=== PATIENT | male | born 1975 | race Hispanic/Latino ===

== ENCOUNTER 2017-06-25 01:04 | Inpatient (IN) | payer OTHER ==
--- OUTSIDE RECORDS SUMMARY | 2017-06-25 01:07 | XMS REPORT | Clinical Summary ---
:[address] [facility] Address [address] [place] [address] Phone Care Team Providers Name Role Phone Unavailable Primary Care Provider Unavailable Allergies No Known Allergies Current Medications Prescription Sig. Disp. Refills Start Date End Date Status INSULIN NPH Inject 7 Units Active HUM/REG INSULIN subcutaneously 2 HM (NOVOLIN 70/30 (two) times daily . SUBQ) amLODIPine Take 10 mg by mouth Active (NORVASC) 10 MG daily. tablet doxazosin Take 2 mg by mouth Active (CARDURA) 2 MG nightly. tablet carvedilol Take 6.25 mg by Active (COREG) 6.25 MG mouth 2 (two) times tablet daily with breakfast and dinner. pravastatin Take 40 mg by mouth Active (PRAVACHOL) 40 MG daily. tablet calcium acetate Take 667 mg by Active (PHOSLO) 667 mg mouth 3 (three) capsule times daily with meals. atorvastatin Take 40 mg by mouth 02/23/19 Discontinued (LIPITOR) 40 MG daily. 18 tablet acetaminophen-cod Take 1 tablet by 30 tablet 0 06/30/2016 07/11/19 eine (TYLENOL #4) mouth every 4 17 300-60 mg per (four) hours as tablet needed for Pain for up to 10 days. Max Daily Amount: 6 tablets sevelamer Take 800 mg by 02/23/19 Discontinued (RENVELA) 800 mg mouth 3 (three) 18 tablet times daily with meals. Active Problems Problem Noted Date ILD (interstitial lung disease) ([facility]) 02/23/2017 ESRD (end stage renal disease) on dialysis ([facility]) 06/30/2016 ESRD (end stage renal disease) (HCC) 05/08/2016 Encounters Date Type Specialty Care Team Description 05/02/2017 Telephone Transplant Rigo Callejas RN Follow-up 03/28/2017 Telephone Transplant Rigo Callejas RN Follow-up 02/23/2017 Hospital Encounter Lee Rivera, ESRD (end stage MD renal disease) (HCC) 02/23/2017 Orders Only Transplant Lee Rivera MD 02/23/2017 Procedure Pass 02/23/2017 Surgery Lee Rivera, R & L CATH / CORONARY ANGIOS / PCI 02/14/2017 Telephone Transplant Rigo Callejas RN Follow-up 02/13/2017 Telephone Transplant Diane Murillo Appointment 01/30/2017 Telephone Transplant Rigo Callejas RN Follow-up 01/30/2017 Abstract Transplant Rigo Callejas RN 01/12/2017 Orders Only Transplant Lee Rivera MD 01/12/2017 Procedure Pass 01/11/2017 Hospital Encounter Cardiology Lee Rivera, End stage renal MD disease (HCC);ASD (atrial septal defect) 01/10/2017 Outside Orders Central Scheduling Lee Rivera End stage renal MD disease (HCC) (Primary Dx);ASD (atrial septal defect) 12/05/2016 Telephone Transplant Rigo Callejas RN Follow-up 11/22/2016 Committee Review Transplant Rigo Callejas RN 11/21/2016 Lab Requisition Lab Gaetano Tejeda MD 11/17/2016 Orders Only Transplant Nikhil Pre-transplant Hepatology Gaetano Guzman MD evaluation for chronic kidney disease 11/15/2016 Documentation Transplant Rigo Callejas RN 11/13/2016 Committee Review Transplant Diane Murillo 10/31/2016 Outside Orders Lab Kevin Carbajal 10/11/2016 Evaluation Transplant Nikhil Pre-transplant Gaetano Guzman MD evaluation for Adriana Fierro MD chronic kidney disease (Primary Dx) 10/11/2016 Evaluation Transplant Gaetano Tejeda MD 10/11/2016 Hospital Encounter Radiology Nikhil, ESRD (end stage Gaetano Guzman MD renal disease) (HCC);Pre-transplant evaluation for chronic kidney disease 10/11/2016 Hospital Encounter Cardiology Nikhil, Pre-transplant Gaetano Guzman MD evaluation for chronic kidney disease 10/11/2016 Hospital Encounter Radiology Nikhil, ESRD (end stage Gaetano Guzman MD renal disease) ([facility]) 10/11/2016 Hospital Encounter Cardiology Nikhil ESRD (end stage Gaetano Guzman MD renal disease) ([facility]) 10/11/2016 Social Work Transplant Shiraz Kenny, BLANKING MACHINE OPERATOR 10/11/2016 Orders Only Transplant Rigo Callejas RN ESRD (end stage renal disease) ([facility]) (Primary Dx) 08/16/2016 Hospital Encounter Radiology Nikhil, ESRD (end stage Gaetano Guzman MD renal disease) ([facility]) 08/16/2016 Hospital Encounter Radiology Nikhil, ESRD (end stage Gaetano Guzman MD renal disease) ([facility]) 08/16/2016 Hospital Encounter Nikhil, ESRD (end stage Gaetano Guzman MD renal disease) ([facility]) 08/16/2016 Orders Only Transplant Nikhil, ESRD (end stage Hepatology Gaetano Guzman MD renal disease) ([facility]) 08/16/2016 Office Visit Transplant Gaetano Tejeda MD Labrador, Florencia P, RN 08/16/2016 Committee Review Transplant Diane Murillo L 08/11/2016 Orders Only Transplant Alexsandra Starr Pre-transplant PERLA Laureano evaluation for chronic kidney disease (Primary Dx) 07/19/2016 Office Visit Transplant ESRD (end stage renal disease) ([facility]) (Primary Dx) 07/13/2016 Orders Only Transplant Rigo Callejas RN 07/10/2016 Abstract Transplant Peggy, Estevez A 07/10/2016 Abstract Transplant Peggy, Estevez A 07/10/2016 Abstract Transplant Peggy, Estevez A 06/30/2016 Hospital Encounter Codie Lim MD ESRD (end stage renal disease) on dialysis ([facility]) (Primary Dx) 06/30/2016 Procedure Pass 06/30/2016 Surgery Codie Lim MD CREATION,A-V FISTULA BY BASILIC VEIN TRANSPOSITION 06/29/2016 Anesthesia Event Hema Lo MD after 06/24/2016 Social History Tobacco Use Types Packs/Day Years Used Date Former Smoker 15 Quit: 09/24/2015 Smokeless Tobacco: Never Used Alcohol Use Drinks/Week oz/Week Comments No Sex Assigned at Date Recorded Not on file Last Filed Vital Signs Vital Sign Reading Time Taken Blood Pressure 131/81 02/23/2017 6:28 PM PRISON KEEPER Pulse 89 02/23/2017 6:28 PM PRISON KEEPER Temperature 36.8 C (98.2 F) 02/23/2017 7:20 AM PRISON KEEPER Respiratory Rate 16 02/23/2017 6:28 PM PRISON KEEPER Oxygen Saturation 95% 02/23/2017 2:16 PM PRISON KEEPER Inhaled Oxygen Concentration - - Weight 42.8 kg (94 lb 6.4 oz) 02/23/2017 7:20 AM PRISON KEEPER Height 167.6 cm (5' 6") 02/23/2017 7:20 AM PRISON KEEPER Body Mass Index 15.24 02/23/2017 7:20 AM PRISON KEEPER Plan of Treatment Health Maintenance Due Date Last Done Comments INFLUENZA VACCINE 11/05/2017 Implants Implanted Type Area Ship Construction Teacher Device Expiration Model / Identifier Date Serial / Lot Matrix Floseal Hemo W/O Ndl5ml [id number] - [id number] Cement/Fi Left: Arm MCINTOSH:BIOSCI 08/04/2017 [id number] / Implanted: Qty: 1 on 05/08/2016 by Codie Lim MD ller/Daniel Lopez / [employer] [id number] Matrix Floseal Hemo W/O Ndl5ml [id number] - [id number] Cement/Fi Left: Arm MCINTOSH:BIOSCI 12/04/2017 [id number] / Implanted: Qty: 1 on 06/30/2016 by Codie Lim MD ller/Daniel Lopez / [employer] [id number] Procedures Procedure Name Priority Date/Time Associated Diagnosis Comments R & L CATH / CORONARY 02/23/2017 2:06 PM PRISON KEEPER Q21.1 N18.6 ANGIOS / PCI Case Notes POP6 REQUESTING AM START TIME Special Needs REQUESTING AM START TIME CREATION,A-V FISTULA BY BASILIC 06/30/2016 12:00 PM CDT END STAGE RENAL DISEASE VEIN TRANSPOSITION after 06/24/2016 Results CARDIAC CATH REPORT - SCAN (03/02/2017 9:22 PM)CBC with platelet count + automated diff (02/23/2017 8:48 AM)Only the most recent of3 resultswithin the time period is included. Component Value Ref Range WBC 8.7 3.5 - 10.5 K/L RBC 4.15 (L) 4.63 - 6.08 M/L Hemoglobin 11.7 (L) 13.7 - 17.5 GM/DL Hematocrit 35.8 (L) 40.1 - 51.0 % MCV 86.3 79.0 - 92.2 fL MCH 28.2 25.7 - 32.2 pg MCHC 32.7 32.3 - 36.5 GM/DL RDW 13.2 11.6 - 14.4 % Platelets 174 150 - 450 K/CU MM MPV 12.4 9.4 - 12.4 fL nRBC 0 0 - 0 /100 WBC % Neutros 65 % % Lymphs 21 % % Monos 9 % % Eos 4 % % Baso 1 % # Neutros 5.66 (H) 1.78 - 5.38 K/L # Lymphs 1.78 1.32 - 3.57 K/L # Monos 0.80 0.30 - 0.82 K/L # Eos 0.30 0.04 - 0.54 K/L # Baso 0.09 (H) 0.01 - 0.08 K/L Immature Granulocytes-Relative 1 0 - 1 % Specimen Performing Laboratory Blood [address] [address] CBC with platelet count + automated diff (02/23/2017 8:48 AM)Only the most recent of3 resultswithin the time period is included. Specimen Performing Laboratory Blood Narrative The following orders were created for panel order CBC with platelet count + automated diff. Procedure Abnormality Status --------- ------ CBC with platelet count ...[[id number]]AbnormalFinal result Please view results for these tests on the individual orders. TSH (02/23/2017 8:48 AM) Component Value Ref Range TSH 3.60 0.35 - 4.94 uIU/mL Specimen Performing Laboratory [address] [address] B-type Natriuretic Factor (BNP) (02/23/2017 8:48 AM) Component Value Ref Range BNP 875 (H) 0 - 100 pg/mL Specimen Performing Laboratory [address] [address] Hepatic function panel (02/23/2017 8:48 AM) Component Value Ref Range Protein, Total 7.8 6.0 - 8.3 gm/dL Albumin 3.9 3.5 - 5.0 g/dL Total Bilirubin 0.6 0.2 - 1.2 mg/dL Bilirubin, Direct 0.2 0.1 - 0.5 mg/dL Alkaline Phosphatase 112 40 - 150 U/L AST 12 5 - 34 U/L ALT 8 6 - 55 U/L Specimen Performing Laboratory Blood [address] [address] Lipid panel (02/23/2017 8:48 AM)Only the most recent of2 resultswithin the time period is included. Component Value Ref Range Triglycerides 102 mg/dL Cholesterol 166 mg/dL HDL 55 mg/dL LDL Calculated 91 mg/dL Specimen Performing Laboratory Blood [address] [address] Narrative Triglyceride Reference Range: Low Risk <150 [id number] High Risk 200-499 Very High Risk>=500 Cholesterol Reference Range: Low Risk <200 Rhfdhlxqxb852-405 High Risk>240 HDL Cholesterol Reference Range: Low Risk >=60 High Risk <40 LDL Cholesterol Reference Range: Optimal<100 Near Obgaplz658-510 Zgdvkyrcco017-103 Pddc904-285 Very High >=190 Basic metabolic panel (02/23/2017 8:48 AM) Component Value Ref Range Sodium 137 136 - 145 meq/L Potassium 4.8 3.5 - 5.1 meq/L Chloride 97 (L) 98 - 107 meq/L CO2 26 22 - 29 meq/L BUN 29 (H) 7 - 21 mg/dL Creatinine 5.65 (H) 0.57 - 1.25 mg/dL Glucose 194 (H) 70 - 105 mg/dL Calcium 9.3 8.4 - 10.2 mg/dL EGFR 11Comment: ESTIMATED GFR IS NOT ACCURATE mL/min/1.73 sq m CREATININE CLEARANCE IN PREDICTING GLOMERULAR FILTRATION RATE. ESTIMATED GFR IS NOT APPLICABLE FOR DIALYSIS PATIENTS. Specimen Performing Laboratory Blood [address] [address] ECHOCARDIOGRAM REPORT - SCAN (01/11/2017 5:10 PM)Only the most recent of2 resultswithin the time period is included.Transesophageal echo (01/11/2017 11: 00 AM) Component Value Ref Range Ejection Fraction Specimen Performing Laboratory [facility]CHO [facility] Narrative Transesophageal Echocardiography Report (ROSIE) Demographics Patient Name JAH BARRERA Date of Study 01/11/2017 ASHLEY [id number] GenderMale Visit Number [id number] Cecilio [id number] Number OP Number Date of Birth1975 Referring Physician Nicole Howard MD Age41 year(s) Parks And Recreation Manager Sebastián Blake, Physician MD Arnold Man MD Fellow Justyn MEZA Procedure Type of Study ROSIE procedure:TRANSESOPHAGEAL ECHO Indications:ASD. Clinical History DM,ESRD,HTN,HIGH CHOLESTRAL, Height: 65 inches Weight: 43.54 kg (96 lbs) BSA: 1.45 m^2 BMI: 15.98 kg/m^2 HR: 81 bpm BP: 151/87 mmHg Procedure Medications - Fentanyl I.V. 25 . - Versed I.V. 4 . Summary The interatrial septum is well visualized. A patent foramen ovale (PFO) is demonstrated by color Doppler and bubble study ("PFO tunnel" with minimal shunt, no anatomic ASD) No ASD. Normal overall left ventricular systolic function. LV septal thickness is severely increased (>1.6cm). LV posterior wall thickness is severely increased (>1.6cm) . Grade 2 diastolic dysfunction (moderately increased LA pressure). Previous Study Compared to prior study, PFO is present (not an ASD as was read at that time) Signature Findings Rhythm/BP Regular sinus rhythm during the exam. LeftNormal overall left ventricular systolic function. Ventricle LV septal thickness is severely increased (>1.6cm). LV posterior wall thickness is severely increased (> 1.6cm) . Grade 2 diastolic dysfunction (moderately increased LA pressure). Left Atrium LA is normal size PADMINI is w/o clot Right RV contractility is normal Ventricle Right AtriumRA size is noirmal Atrial Septum The interatrial septum is well visualized. A patent foramen ovale (PFO) is demonstrated by color Doppler and bubble study ("PFO tunnel" with minimal shunt, no anatomic ASD) No ASD. Aortic ValveNo AI Mitral ValveNormal MV structure and function. Mild mitral regurgitation. Tricuspid Trace TR Valve Estimated peak systolic PA pressure is cannot be determined due to inadequate TR velocity signal . PulmonicPV is not well visualized. Valve Aorta Aortic root size (SInus of Valsalva diameter) is normal . The aortic sinotubular junction appears normal . Proximal ascending aorta size is normal . There is no evidence of aortic plaque. Pericardium No pericardial effusion is visualized. CongenitalRA size is normal Chambers/Structures Aorta Ascending Aorta: 2.53 cm Procedure Note Interface, External Ris In - 01/11/2017 4:09 PM PRISON KEEPER Transesophageal Echocardiography Report (ROSIE) Demographics Patient Name JAH BARRERA Date of Study 01/11/2017 ASHLEY Gender Male Visit Number [id number] Race Unknown Room Number OP Number Date of 1975 Referring Physician Nicole Howard MD Age 41 year(s) Parks And Recreation Manager Sebastián Llanes Interpreting Jaspreet Blake, Physician MD Arnold Man MD Fellow Justyn MEZA Procedure Type of Study ROSIE procedure:TRANSESOPHAGEAL ECHO Indications:ASD. Clinical History DM,ESRD,HTN,HIGH CHOLESTRAL, Height: 65 inches Weight: 43.54 kg (96 lbs) BSA: 1.45 m^2 BMI: 15.98 kg/m^2 HR: 81 bpm BP: 151/87 mmHg Procedure Medications - Fentanyl I.V. 25 . - Versed I.V. 4 . Summary The interatrial septum is well visualized. A patent foramen ovale (PFO) is demonstrated by color Doppler and bubble study ("PFO tunnel" with minimal shunt, no anatomic ASD) No ASD. Normal overall left ventricular systolic function. LV septal thickness is severely increased (>1.6cm). LV posterior wall thickness is severely increased (>1.6cm) . Grade 2 diastolic dysfunction (moderately increased LA pressure). Previous Study Compared to prior study, PFO is present (not an ASD as was read at that time) Signature Findings Rhythm/BP Regular sinus rhythm during the exam. Left Normal overall left ventricular systolic function. Ventricle LV septal thickness is severely increased (>1.6cm). LV posterior wall thickness is severely increased (>1.6cm) . Grade 2 diastolic dysfunction (moderately increased LA pressure). Left Atrium LA is normal size PADMINI is w/o clot Right RV contractility is normal Ventricle Right Atrium RA size is noirmal Atrial Septum The interatrial septum is well visualized. A patent foramen ovale (PFO) is demonstrated by color Doppler and bubble study ("PFO tunnel" with minimal shunt, no anatomic ASD) No ASD. Aortic Valve No AI Mitral Valve Normal MV structure and function. Mild mitral regurgitation. Tricuspid Trace TR Valve Estimated peak systolic PA pressure is cannot be determined due to inadequate TR velocity signal . Pulmonic PV is not well visualized. Valve Aorta Aortic root size (SInus of Valsalva diameter) is normal . The aortic sinotubular junction appears normal . Proximal ascending aorta size is normal . There is no evidence of aortic plaque. Pericardium No pericardial effusion is visualized. Congenital RA size is normal Chambers/Structures Aorta Ascending Aorta: 2.53 cm TRANSFUSION SERVICE REPORT - SCAN (11/18/2016 5:44 PM)Flow PRA Class I and II ( 11/17/2016 12:00 PM) Component Value Ref Range Date of Serum [id number] Serum# [id number] Flow PRA Class I and II See Scanned Report Specimen Performing Laboratory Blood [facility] IMMUNE EVALUATION LAB [facility] [address] Maryann, MS:[facility] [address] [place] [address] HLA Typing (11/17/2016 12:00 PM) Component Value Ref Range HLA Result See Scanned Report HLA-A AG1 HLA-A AG2 HLA-B AG1 HLA-B AG2 HLA-C AG1 HLA-C AG2 HLA-DR AG1 HLA-DR 2nd Antigen HLA-DQ AG1 HLA-DQ AG2 HLA-DRW Specimen Performing Laboratory Blood [facility] IMMUNE EVALUATION LAB [facility] [address] Wolf, MS:BCM [address] [place] [address] Urinalysis, Routine (11/17/2016 9:28 AM)Only the most recent of2 resultswithin the time period is included. Component Value Ref Range Color, UA Yellow Clarity, UA Clear Specific Mcgraws, UA 1.017 1.001 - 1.035 pH, UA 8.5 (H) 5.0 - 8.0 Protein, UA >600 mg/dL (A) Negative Glucose, UA 200 mg/dL (A) Negative Ketones, UA Negative Negative Bilirubin, UA Negative Negative Blood, UA Small (A) Negative Nitrite, UA Negative Negative Leukocytes, UA Negative Negative Urobilinogen, UA 0.2 0.2 - 1.0 mg/dL RBC, UA 21 /HPF WBC, UA 2 /HPF Hyaline Casts, UA 5 /LPF Specimen Source Specimen Performing Laboratory Urine [address] [address] Urine Culture (11/17/2016 9:28 AM)Only the most recent of2 resultswithin the time period is included. Component Value Ref Range Result No growth Specimen Performing Laboratory Urine - Urine, Unspecified Source [address] [address] Uric Acid (11/17/2016 9:28 AM)Only the most recent of2 resultswithin the time period is included. Component Value Ref Range Uric Acid 3.8 2.6 - 7.2 mg/dL Specimen Performing Laboratory Blood [address] [address] Phosphorus (11/17/2016 9:28 AM)Only the most recent of2 resultswithin the time period is included. Component Value Ref Range Phosphorus 2.9 2.3 - 4.7 mg/dL Specimen Performing Laboratory Blood [address] [address] Lactate Dehydrogenase (LDH) (11/17/2016 9:28 AM)Only the most recent of2 resultswithin the time period is included. Component Value Ref Range LDH 252 (H) 125 - 220 U/L Specimen Performing Laboratory Blood [address] [address] Hemoglobin A1c (11/17/2016 9:28 AM)Only the most recent of2 resultswithin the time period is included. Component Value Ref Range Hemoglobin A1C 7.9 (H) 4.3 - 6.1 % Specimen Performing Laboratory Blood [address] [address] Gamma Glutamyl Transferase (GGT) (11/17/2016 9:28 AM)Only the most recent of2 resultswithin the time period is included. Component Value Ref Range GGT 32 9 - 64 U/L Specimen Performing Laboratory Blood [address] [address] Comprehensive metabolic panel (11/17/2016 9:28 AM)Only the most recent of2 resultswithin the time period is included. Component Value Ref Range Protein, Total 7.3 6.0 - 8.3 gm/dL Albumin 3.8 3.5 - 5.0 g/dL Alkaline Phosphatase 119 40 - 150 U/L Total Bilirubin 0.5 0.2 - 1.2 mg/dL Sodium 140 136 - 145 meq/L Potassium 4.1 3.5 - 5.1 meq/L Chloride 98 98 - 107 meq/L CO2 34 (H) 22 - 29 meq/L BUN 17 7 - 21 mg/dL Creatinine 5.48 (H) 0.57 - 1.25 mg/dL Glucose 102 70 - 105 mg/dL Calcium 9.4 8.4 - 10.2 mg/dL AST 13 5 - 34 U/L ALT 8 6 - 55 U/L EGFR 12Comment: ESTIMATED GFR IS NOT ACCURATE mL/min/1.73 sq m CREATININE CLEARANCE IN PREDICTING GLOMERULAR FILTRATION RATE. ESTIMATED GFR IS NOT APPLICABLE FOR DIALYSIS PATIENTS. Specimen Performing Laboratory Blood [address] [address] T Spot TB (11/17/2016 9:27 AM)Only the most recent of2 resultswithin the time period is included. Component Value Ref Range T-Spot TB Negative Neg Ctrl Spot Count 0 Panel A Spot 0 Panel B Spot [address] >20 Scan Result Specimen Performing Laboratory Blood [facility] [address] [facility], [address] [place] [address] PT/aPTT (11/17/2016 9:27 AM)Only the most recent of2 resultswithin the time period is included. Component Value Ref Range Protime 14.3 11.7 - 14.7 seconds INR 1.1 <=5.9 PTT 32.2 22.5 - 36.0 seconds Specimen Performing Laboratory Blood [address] [address] Narrative RECOMMENDED COUMADIN/WARFARIN INR THERAPY RANGES STANDARD DOSE: 2.0 - 3.0 Includes: PROPHYLAXIS for venous thrombosis, systemic embolization; TREATMENT for venous thrombosis and/or pulmonary embolus. HIGH RISK: Target INR is 2.5-3.5 for patients with mechanical heart valves. HIV-1 Antigen with HIV-1/2 Antibody (11/17/2016 9:27 AM)Only the most recent of2 resultswithin the time period is included. Component Value Ref Range HIV-1 Antigen with HIV 1&2 Antibody Nonreactive Nonreactive Specimen Performing Laboratory [address] [address] Hepatitis C Antibody (11/17/2016 9:27 AM)Only the most recent of2 resultswithin the time period is included. Component Value Ref Range Hepatitis C Ab Nonreactive Nonreactive Specimen Performing Laboratory Blood [address] [address] Cytomegalovirus antibody, IgM (11/17/2016 9:27 AM)Only the most recent of2 resultswithin the time period is included. Component Value Ref Range CMV IgM Negative Specimen Performing Laboratory [address] [address] Hepatitis B core antibody, IgM (11/17/2016 9:27 AM)Only the most recent of2 resultswithin the time period is included. Component Value Ref Range Hep B C IgM Nonreactive Nonreactive Specimen Performing Laboratory Blood [facility] [address] [address] EBV-VCA antibody, IgM (11/17/2016 9:27 AM)Only the most recent of2 resultswithin the time period is included. Component Value Ref Range EBV VCA IgM Negative Specimen Performing Laboratory Blood [address] [address] EBV-VCA antibody, IgG (11/17/2016 9:27 AM)Only the most recent of2 resultswithin the time period is included. Component Value Ref Range EBV VCA IgG Positive Specimen Performing Laboratory Blood [address] [address] RPR (11/17/2016 9:27 AM)Only the most recent of2 resultswithin the time period is included. Component Value Ref Range RPR Nonreactive Nonreactive Specimen Performing Laboratory Blood [address] [address] Hepatitis B surface antibody (11/17/2016 9:27 AM)Only the most recent of2 resultswithin the time period is included. Component Value Ref Range Hep B S Ab 78.1 (H) <8.0 mIU/mL Specimen Performing Laboratory Blood [address] [address] Hepatitis B surface antigen (11/17/2016 9:27 AM)Only the most recent of2 resultswithin the time period is included. Component Value Ref Range hepatitis B Surface Ag Nonreactive Nonreactive Specimen Performing Laboratory Blood [address] [address] Cytomegalovirus antibody, IgG (11/17/2016 9:27 AM)Only the most recent of2 resultswithin the time period is included. Component Value Ref Range CMV IgG Negative Specimen Performing Laboratory Blood [address] [address] Varicella Zoster Antibody, IgG (11/17/2016 9:27 AM)Only the most recent of2 resultswithin the time period is included. Component Value Ref Range Varicella IgG 3.0 Al Specimen Performing Laboratory Blood [address] [address] Narrative VARICELLA ZOSTER RESULT INTERPRETATIONS: <=0.8 AlNonreactive:Presumed non-immune to VZV 0.9-1.0 AlEquivocal >=1.1 AlReactive:Presumed immune to VZV PTH, Intact (11/17/2016 9:27 AM)Only the most recent of2 resultswithin the time period is included. Component Value Ref Range PTH 335.9 (H) 8.5 - 72.5 pg/mL Specimen Performing Laboratory Blood [address] [address] Blood typing, automated (11/17/2016 9:26 AM) Component Value Ref Range ABO/RH AUTOMATED (Y-ClientsAKER) A POSITIVE Specimen Performing Laboratory Blood [address] [address] Direct AHG (VARGHESE)/Direct Alexus (11/17/2016 9:26 AM)Only the most recent of2 resultswithin the time period is included. Component Value Ref Range Direct AHG-IGG NEGATIVEComment: Saline Control-neg Direct AHG-C3B, C3D NEGATVIE Specimen Performing Laboratory Blood [address] [address] Occult blood, stool (10/31/2016 3:00 PM)Only the most recent of2 resultswithin the time period is included. Component Value Ref Range Occult blood Negative Negative Specimen Performing Laboratory Stool [address] [address] [place] Cystogram Cine or Video Voiding (10/11/2016 12:53 PM) Specimen Performing Laboratory GE RIS Narrative FINAL REPORT VCUG: Reason for exam: kidney transplant evaluation Total fluoroscopy time: 0.6 minutes Total number of films: 12 Discussion: Approximately 250 cc of water-soluble contrast material was introduced into the bladder through a bladder catheter. The bladder fills normally with contrast and is normal in morphology. No reflux is noted. The patient was then placed in the upright position and catheter removed. The patient voided spontaneously. A normal male urethra is identified. No postvoid residual is noted. Impression: Normal [facility]G Signed: Kevin Cisneros MD Report Verified Date/Time:10/11/2016 13:04:21 Reading Location: [address] Consult Reading Room Procedure Note Interface, External Ris In - 10/11/2016 1:06 PM CDT FINAL REPORT VCUG: Reason for exam: kidney transplant evaluation Total fluoroscopy time: 0.6 minutes Total number of films: 12 Discussion: Approximately 250 cc of water-soluble contrast material was introduced into the bladder through a bladder catheter. The bladder fills normally with contrast and is normal in morphology. No reflux is noted. The patient was then placed in the upright position and catheter removed. The patient voided spontaneously. A normal male urethra is identified. No postvoid residual is noted. Impression: Normal VCUG Signed: Kevin Cisneros MD Report Verified Date/Time: 10/11/2016 13:04:21 Reading Location: [facility] [id number] Ortho Consult Reading Room 12 lead (10/11/2016 10:45 AM) Specimen Performing Laboratory [employer] MUSE Narrative Ventricular Rate 85 BPM Atrial Rate 85 BPM P-R Interval 182 ms QRS Duration 90 ms Q-T Interval 378 ms QTC Calculation(Bazett) 449 ms P [place] 49 degrees R [place] 31 degrees T [place] 125 degrees Normal sinus rhythm Possible Left atrial enlargement Left ventricular hypertrophy with repolarization abnormality Abnormal ECG When compared with ECG of 01-MAY-2016 11:42, ST now depressed in Lateral leads Confirmed by MD BURKE, AB ([id number]) on 10/11/2016 2:27:11 PM Procedure Note Interface, External Ris In - 10/11/2016 2:27 PM CDT Ventricular Rate 85 BPM Atrial Rate 85 BPM P-R Interval 182 ms QRS Duration 90 ms Q-T Interval 378 ms QTC Calculation(Bazett) 449 ms P [place] 49 degrees R [place] 31 degrees T [place] 125 degrees Normal sinus rhythm Possible Left atrial enlargement Left ventricular hypertrophy with repolarization abnormality Abnormal ECG When compared with ECG of 01-MAY-2016 11:42, ST now depressed in Lateral leads Confirmed by MD BURKE, IHAB ([id number]) on 10/11/2016 2:27:11 PM NM myocardial perfusion PET (rest and stress) (10/11/2016 10:39 AM) Specimen Performing Laboratory [employer] RIS Narrative FINAL REPORT PROCEDURE: Rest/Stress MYOCARDIAL PERFUSION PET with regadenoson\\XA9\\ CPT CODE: 18216 INDICATION: End-stage renal disease, preoperative evaluation for kidney transplantation HISTORY: Cardiac risk factors: Diabetes, hypertension, hyperlipidemia, tobacco abuse. Other cardiovascular history: No reported CAD. Recent cardiac symptoms: None reported. Current cardiovascular-related medications: Norvasc, Lipitor, Coreg, Cardura. PROTOCOL: Limited low-dose CT imaging was performed for attenuation correction. 35.9 mCi of Rb-82 chloride was injected iv at rest, and gated PET (positron emission tomography) images were obtained. Subsequently, 35.8 mCi of Rb-82 chloride was injected iv at expected peak pharmacologic effect, and gated PET images were obtained. PRELIMINARY STRESS TEST DATA FROM NONINVASIVE CARDIOLOGY: Pharmacologic stress was by 10-second iv infusion of 0.4 mg of regadenoson. Radiotracer was injected 30 seconds after start of stress. Heart rate was 83 beats/min at rest and 96 beats/min (53% of MPHR) at tracer injection. BP was 130/67 mmHg at rest and 124/59 mmHg at tracer injection. Stress was stopped for predetermined endpoint. The patient experienced flushing; treatment was not required. Preliminary ECG evaluation revealed sinus rhythm at rest and no ischemic changes with stress. (Final ECG interpretation and other stress and monitoring data are reported separately by Cardiology.) IMAGING FINDINGS: Study quality is good. Images obtained after rest and stress injections show normal LV activity. LV and RV volumes appear normal. Gated images obtained at rest and with stress show normal LV wall motion and thickening. LVEF at rest is 53%. LVEF at stress is 54%. IMPRESSION: 1. Normal study.2. Appropriate pharmacologic stress.3. Normal myocardial perfusion.4. Normal resting LV function. No deterioration of function is noted with pharmacologic stress.5. Normal extracardiac tracer distribution.6. No previous [facility] study for comparison. NONINVASIVE RISK STRATIFICATION: The above findings are considered low risk (<1% annual mortality rate) based on the following criterion: - Normal or small myocardial perfusion defect at rest or with stress (JACC. 2012;59(9):857-81.) Signed: Nicolas Kimble MD Report Verified Date/Time:10/11/2016 14:10:21 Reading Location: [address] Reading Room Procedure Note Interface, External Ris In - 10/16/2016 6:37 PM CDT FINAL REPORT PROCEDURE: Rest/Stress MYOCARDIAL PERFUSION PET with regadenoson\\XA9\\ CPT CODE: 41744 INDICATION: End-stage renal disease, preoperative evaluation for kidney transplantation HISTORY: Cardiac risk factors: Diabetes, hypertension, hyperlipidemia, tobacco abuse. Other cardiovascular history: No reported CAD. Recent cardiac symptoms: None reported. Current cardiovascular-related medications: Norvasc, Lipitor, Coreg, Cardura. PROTOCOL: Limited low-dose CT imaging was performed for attenuation correction. 35.9 mCi of Rb-82 chloride was injected iv at rest, and gated PET (positron emission tomography) images were obtained. Subsequently, 35.8 mCi of Rb-82 chloride was injected iv at expected peak pharmacologic effect, and gated PET images were obtained. PRELIMINARY STRESS TEST DATA FROM NONINVASIVE CARDIOLOGY: Pharmacologic stress was by 10-second iv infusion of 0.4 mg of regadenoson. Radiotracer was injected 30 seconds after start of stress. Heart rate was 83 beats/min at rest and 96 beats/min (53% of MPHR) at tracer injection. BP was 130/67 mmHg at rest and 124/59 mmHg at tracer injection. Stress was stopped for predetermined endpoint. The patient experienced flushing; treatment was not required. Preliminary ECG evaluation revealed sinus rhythm at rest and no ischemic changes with stress. (Final ECG interpretation and other stress and monitoring data are reported separately by Cardiology.) IMAGING FINDINGS: Study quality is good. Images obtained after rest and stress injections show normal LV activity. LV and RV volumes appear normal. Gated images obtained at rest and with stress show normal LV wall motion and thickening. LVEF at rest is 53%. LVEF at stress is 54%. IMPRESSION: 1. Normal study. 2. Appropriate pharmacologic stress. 3. Normal myocardial perfusion. 4. Normal resting LV function. No deterioration of function is noted with pharmacologic stress. 5. Normal extracardiac tracer distribution. 6. No previous [facility] study for comparison. NONINVASIVE RISK STRATIFICATION: The above findings are considered low risk (<1% annual mortality rate) based on the following criterion: - Normal or small myocardial perfusion defect at rest or with stress (JACC. 2012;59(9):857-81.) Signed: Nicolas Kimble MD Report Verified Date/Time: 10/11/2016 14:10:21 Reading Location: [address] [facility] Reading Room Treadmill tolerance(Non-Nuclear Treadmill) (10/11/2016 10:23 AM) Specimen Performing Laboratory [employer] Narrative Protocol Name Regadenoson Time In Exercise Phase 00:01:00 Max. Systolic BP 124 mmHg Max Diastolic BP 59 mmHg Max Heart Rate 96 BPM Max Predicted Heart Rate 179 BPM Reason For Termination Predetermined end point Reason for Test Renal Transplant Work Up/Evaluation Target HR Formula (220 - Age)*100% Arrhythmias none Resting ECG Normal sinus rhythm left ventricular hypertrophy with repolarization nonspecific T wave abnormality ST Changes No Significant Changes Overall Impression Indeterminate due to pharmacological stress Chest Pain none HR Response To Exercise BP Response To Exercise NORVASC LIPITOR COREG CARDUA Confirmed by fellow Bill Bear ([id number]) on 10/11/2016 10:51:59 AM Confirmed by Herber MARY MICHAEL ([id number]) on 10/12/2016 7:42:39 AM Procedure Note Interface, External Ris In - 10/12/2016 7:42 AM CDT Protocol Name Regadenoson Time In Exercise Phase 00:01:00 Max. Systolic BP 124 mmHg Max Diastolic BP 59 mmHg Max Heart Rate 96 BPM Max Predicted Heart Rate 179 BPM Reason For Termination Predetermined end point Reason for Test Renal Transplant Work Up/Evaluation Target HR Formula (220 - Age)*100% Arrhythmias none Resting ECG Normal sinus rhythm left ventricular hypertrophy with repolarization nonspecific T wave abnormality ST Changes No Significant Changes Overall Impression Indeterminate due to pharmacological stress Chest Pain none HR Response To Exercise BP Response To Exercise NORVASC LIPITOR COREG CARDUA Confirmed by fellow Bill Bear ([id number]) on 10/11/2016 10:51:59 AM Confirmed by Herber MARY MICHAEL ([id number]) on 10/12/2016 7:42:39 AM 2D Echo W/Doppler(CW/PW/Color) (10/11/2016 7:59 AM) Component Value Ref Range Ejection Fraction Specimen Performing Laboratory [facility] ECHO HEARTLAB MKCKESSON CPACS Narrative Transthoracic Echocardiography Report (TTE) Demographics Patient NameJAH BARRERA Date of Study10/11/2016 ASHLEY Gender Male Visit [id number] Race Unknown Number Number Date of 1975 Referring Nikhil Guzman Physician Age 41 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 Clinical History Diabetes ESRD High cholesterol Hypertension HGB 13.8 HCT 41.0 % Height: 65 inches Weight: 43.54 kg (96 lbs) BSA: 1.45 m^2 BMI: 15.98 kg/m^2 HR: 76 bpm BP: 144/77 mmHg Summary A secundum type atrial septal defect (ASD) is present with L-->R flow by color Doppler with Qp:Qs 1.0. Consider ROSIE for further anatomic delineation. Normal LV chamber size. LV septal thickness is mildly increased (1.2-1.4cm). LV posterior wall thickness is normal (0.6-1.1cm). Normal LV systolic function with LVEF 55-60%. Restrictive mitral filling pattern (grade III diastolic dysfunction). Trace pericardial effusion is visualized. Large left sided pleural effusion with atelectatic lung is seen. Systolic blunting of pulmonary venous flow. RAP 5-10mmHg. The right ventricular chamber size and systolic function are within normal limits. Mildly thickened TV leaflets with mild TR. PASP 35-40mmHg + RAP. Signature Findings Rhythm/BPSinus rhythm during the exam. Left Ventricle Normal LV chamber size. LV septal thickness is mildly increased (1.2-1.4cm). LV posterior wall thickness is normal (0.6-1.1cm). Normal LV systolic function with LVEF 55-60%. Restrictive mitral filling pattern (grade III diastolic dysfunction). Left AtriumLA size is severely enlarged(>48 ml/m2) . Right VentricleThe right ventricular chamber size and systolic function are within normal limits. Right Atrium Normal RA size. Atrial SeptumA secundum type atrial septal defect (ASD) is present with L-->R flow by color Doppler with Qp:Qs 1.0. Consider ROSIE for further anatomic delineation. Aortic Valve Normal AoV structure and function. Mitral Valve Mildly thickened mitral leaflets. Tricuspid ValveMildly thickened TV leaflets with mild TR. PASP 35-40mmHg + RAP. Pulmonic Valve Normal PV structure. Mild to moderate PI. AortaNormal aortic root and ascending aortic size. PericardiumTrace pericardial effusion is visualized. Large left sided pleural effusion with atelectatic lung is seen. IVC/SVC/PA/PV/PleuralSystolic blunting of pulmonary venous flow. RAP 5-10mmHg. Chambers/Structures Left Atrium LA Dimension: 4.43 cmLA Area: 23.87 cm^2 LA Volume: 84.43 ml LA Vol. Index: 58 ml/m^2 Left Ventricle LVIDd: 4.86 cmLVEDV 2D :82.11 ml LVIDs: 3.06 cmLVESV 2D :39.26 ml LV Septum Diastolic: 1.26 cm LV PW Diastolic: 1.15 cm LV FS: 37 % LV ESV (Cubed):28.65 cc LVOT Diameter: 2 cm LV ESV (Teich):36.73 ml LV SV (Teich):73.95 ml LV SI (Teich):51 ml/m^2 LVEF 2D Teich: 52.2 % Right Ventricle RVOT Diameter: 2.13 cm RVOT VTI: 19.58 cm Shunts QP: 69.77 mlQP/QS: 1.06 QS:65.91 ml Doppler/Quantitative Measurements Mitral Valve MV Peak E-Wave: 1.33 m/sMV Peak A-Wave: 0.39 m/s E/A Ratio : 3.41 Mean Velocity: 0.53 m/s Peak Gradient: 7.05 mmHg Mean Gradient: 1.65 mmHgDeceleration Time: 156.3 msec Area (continuity): 2.9 cm^2 MR Velocity: 4.65 m/s MV VTI: 22.74 cm MR Pk Grad : 86.56 mmHg Aortic Valve Peak Velocity: 1.51 m/sMean Velocity: 0.95 m/s Peak Gradient: 9.12 mmHg Mean Gradient: 4.15 mmHg AV Area (continuity): 2.52 cm^2 AV VTI: 26.17 cm AV DVI: 0.8 LVOT Peak Velocity: 1.11 m/s Peak Gradient: 4.91 mmHg Mean Velocity: 0.73 m/s Mean Gradient: 2.51 mmHg LVOT Diameter: 2 cm LVOT VTI: 20.98 cm LVOT Area: 3.14 cm^2LVOT SV:65.88 ml LVOT CO: 5.01 l/min LVOT CI: 3.46 l/min/m^2 RVOT RVOT SV: 69.73 ml RVOT CO: 5.3 L/min Tricuspid Valve TR Velocity: 2.75 m/s TR Gradient: 30.28 mmHg Procedure Note Interface, External Ris In - 10/12/2016 11:03 AM CDT Transthoracic Echocardiography Report (TTE) Demographics Patient Name JAH BARRERA Date of Study 10/11/2016 ASHLEY Gender Male Visit Number [id number] Race Unknown Room Number Number Date of 1975 Referring Nihkil Guzman Physician Age 41 year(s) 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 Clinical History Diabetes ESRD High cholesterol Hypertension HGB 13.8 HCT 41.0 % Height: 65 inches Weight: 43.54 kg (96 lbs) BSA: 1.45 m^2 BMI: 15.98 kg/m^2 HR: 76 bpm BP: 144/77 mmHg Summary A secundum type atrial septal defect (ASD) is present with L-->R flow by color Doppler with Qp:Qs 1.0. Consider ROSIE for further anatomic delineation. Normal LV chamber size. LV septal thickness is mildly increased (1.2-1.4cm). LV posterior wall thickness is normal (0.6-1.1cm). Normal LV systolic function with LVEF 55-60%. Restrictive mitral filling pattern (grade III diastolic dysfunction). Trace pericardial effusion is visualized. Large left sided pleural effusion with atelectatic lung is seen. Systolic blunting of pulmonary venous flow. RAP 5-10mmHg. The right ventricular chamber size and systolic function are within normal limits. Mildly thickened TV leaflets with mild TR. PASP 35-40mmHg + RAP. Signature Findings Rhythm/BP Sinus rhythm during the exam. Left Ventricle Normal LV chamber size. LV septal thickness is mildly increased (1.2-1.4cm). LV posterior wall thickness is normal (0.6-1.1cm). Normal LV systolic function with LVEF 55-60%. Restrictive mitral filling pattern (grade III diastolic dysfunction). Left Atrium LA size is severely enlarged(>48 ml/m2) . Right Ventricle The right ventricular chamber size and systolic function are within normal limits. Right Atrium Normal RA size. Atrial Septum A secundum type atrial septal defect (ASD) is present with L-->R flow by color Doppler with Qp:Qs 1.0. Consider ROSIE for further anatomic delineation. Aortic Valve Normal AoV structure and function. Mitral Valve Mildly thickened mitral leaflets. Tricuspid Valve Mildly thickened TV leaflets with mild TR. PASP 35-40mmHg + RAP. Pulmonic Valve Normal PV structure. Mild to moderate PI. Aorta Normal aortic root and ascending aortic size. Pericardium Trace pericardial effusion is visualized. Large left sided pleural effusion with atelectatic lung is seen. IVC/SVC/PA/PV/Pleural Systolic blunting of pulmonary venous flow. RAP 5-10mmHg. Chambers/Structures Left Atrium LA Dimension: 4.43 cm LA Area: 23.87 cm^2 LA Volume: 84.43 ml LA Vol. Index: 58 ml/m^2 Left Ventricle LVIDd: 4.86 cm LVEDV 2D:82.11 ml LVIDs: 3.06 cm LVESV 2D:39.26 ml LV Septum Diastolic: 1.26 cm LV PW Diastolic: 1.15 cm LV FS: 37 % LV ESV (Cubed):28.65 cc LVOT Diameter: 2 cm LV ESV (Teich):36.73 ml LV SV (Teich):73.95 ml LV SI (Teich):51 ml/m^2 LVEF 2D Teich: 52.2 % Right Ventricle RVOT Diameter: 2.13 cm RVOT VTI: 19.58 cm Shunts QP: 69.77 ml QP/QS: 1.06 QS:65.91 ml Doppler/Quantitative Measurements Mitral Valve MV Peak E-Wave: 1.33 m/s MV Peak A-Wave: 0.39 m/s E/A Ratio: 3.41 Mean Velocity: 0.53 m/s Peak Gradient: 7.05 mmHg Mean Gradient: 1.65 mmHg Deceleration Time: 156.3 msec Area (continuity): 2.9 cm^2 MR Velocity: 4.65 m/s MV VTI: 22.74 cm MR Pk Grad: 86.56 mmHg Aortic Valve Peak Velocity: 1.51 m/s Mean Velocity: 0.95 m/s Peak Gradient: 9.12 mmHg Mean Gradient: 4.15 mmHg AV Area (continuity): 2.52 cm^2 AV VTI: 26.17 cm AV DVI: 0.8 LVOT Peak Velocity: 1.11 m/s Peak Gradient: 4.91 mmHg Mean Velocity: 0.73 m/s Mean Gradient: 2.51 mmHg LVOT Diameter: 2 cm LVOT VTI: 20.98 cm LVOT Area: 3.14 cm^2 LVOT SV:65.88 ml LVOT CO: 5.01 l/min LVOT CI: 3.46 l/min/m^2 RVOT RVOT SV: 69.73 ml RVOT CO: 5.3 L/min Tricuspid Valve TR Velocity: 2.75 m/s TR Gradient: 30.28 mmHg US pelvis with doppler (08/16/2016 3:38 PM) Specimen Performing Laboratory [facility] R[facility] Narrative FINAL REPORT TECHNIQUE: Grayscale, color Doppler, and spectral Doppler ultrasound of the distal aorta and bilateral iliac arteries. INDICATION: 41-year-old man for renal transplant evaluation. COMPARISON: None. FINDINGS: The distal abdominal aorta is patent and measures 1.4 cm. The common iliac arteries are patent and measure 0.9 cm on the right and 0.8 cm on the left. The external iliac arteries are patent and measure 0.5 cm on the right and 1.1 cm on the left. The left internal iliac artery is patent and measure 0.5 cm. The right internal iliac artery is not clearly visualized. Normal velocities and waveforms in the distal aorta and bilateral common iliac arteries. Bilateral common, external, and internal iliac veins are patent. IMPRESSION: Unremarkable sonogram and Doppler evaluation of the iliac vessels bilaterally. Signed: Bakari Juarez MD Report Verified Date/Time:08/16/2016 16:26:06 Reading Location: [address] Radiology Reading Room Procedure Note Interface, External Ris In - 08/16/2016 4:28 PM CDT FINAL REPORT TECHNIQUE: Grayscale, color Doppler, and spectral Doppler ultrasound of the distal aorta and bilateral iliac arteries. INDICATION: 41-year-old man for renal transplant evaluation. COMPARISON: None. FINDINGS: The distal abdominal aorta is patent and measures 1.4 cm. The common iliac arteries are patent and measure 0.9 cm on the right and 0.8 cm on the left. The external iliac arteries are patent and measure 0.5 cm on the right and 1.1 cm on the left. The left internal iliac artery is patent and measure 0.5 cm. The right internal iliac artery is not clearly visualized. Normal velocities and waveforms in the distal aorta and bilateral common iliac arteries. Bilateral common, external, and internal iliac veins are patent. IMPRESSION: Unremarkable sonogram and Doppler evaluation of the iliac vessels bilaterally. Signed: Bakari Juarez MD Report Verified Date/Time: 08/16/2016 16:26:06 Reading Location: [address] Radiology Reading Room abdomen complete (08/16/2016 3:05 PM) Specimen Performing Laboratory [facility] Narrative FINAL REPORT TECHNIQUE: Grayscale ultrasound of the abdomen. INDICATION: 41-year-old man for renal transplant evaluation. COMPARISON: None. FINDINGS: MIDLINE VASCULATURE: The visualized IVC is patent. Portal vein is patent. The maximum visualized aortic diameter is 1.8 cm. LIVER: Smooth liver contour. No focal lesions. BILIARY: Gallbladder: No gallstones or sludge. No gallbladder wall thickening, pericholecystic fluid, or distention. Negative sonographic Alonso sign. Common bile duct measures 0.4 cm, within normal limits. No intrahepatic biliary ductal dilatation. PANCREAS: Visualized portions of the pancreas are unremarkable. SPLEEN: No splenomegaly. PERITONEUM: Trace free fluid. KIDNEYS: The kidneys are mildly echogenic and measure 7.3 cm on the right and 8.9 cm on the left. No hydronephrosis. No sonographically evident solid mass lesion. LOWER THORAX: Left pleural effusion. IMPRESSION: Medical renal disease bilaterally. Trace ascites. Left pleural effusion. Signed: Bakari Juarez MD Report Verified Date/Time:08/16/2016 15:24:57 Reading Location: [address] Radiology Reading Room Procedure Note Interface, External Ris In - 08/16/2016 3:27 PM CDT FINAL REPORT TECHNIQUE: Grayscale ultrasound of the abdomen. INDICATION: 41-year-old man for renal transplant evaluation. COMPARISON: None. FINDINGS: MIDLINE VASCULATURE: The visualized IVC is patent. Portal vein is patent. The maximum visualized aortic diameter is 1.8 cm. LIVER: Smooth liver contour. No focal lesions. BILIARY: Gallbladder: No gallstones or sludge. No gallbladder wall thickening, pericholecystic fluid, or distention. Negative sonographic Alonso sign. Common bile duct measures 0.4 cm, within normal limits. No intrahepatic biliary ductal dilatation. PANCREAS: Visualized portions of the pancreas are unremarkable. SPLEEN: No splenomegaly. PERITONEUM: Trace free fluid. KIDNEYS: The kidneys are mildly echogenic and measure 7.3 cm on the right and 8.9 cm on the left. No hydronephrosis. No sonographically evident solid mass lesion. LOWER THORAX: Left pleural effusion. IMPRESSION: Medical renal disease bilaterally. Trace ascites. Left pleural effusion. Signed: Bakari Juarez MD Report Verified Date/Time: 08/16/2016 15:24:57 Reading Location: [address] Radiology Reading Room chest 2 views (08/16/2016 12:32 PM) Specimen Performing Laboratory GE [facility] Narrative FINAL REPORT TECHNIQUE: Frontal and lateral views of the chest. INDICATION: 41-year-old man for renal transplant evaluation. COMPARISON: None. FINDINGS: LINES/TUBES: Right internal jugular dual lumen dialysis catheter terminates over the expected region of the cavoatrial junction. LUNGS: The lungs are well inflated and clear. PLEURA: Small-moderate left pleural effusion. HEART AND MEDIASTINUM: The cardiomediastinal silhouette is mildly enlarged. SOFT TISSUES AND BONES: Unremarkable. IMPRESSION: Small-moderate left pleural effusion. Otherwise, no acute cardiopulmonary abnormalities. Signed: Bakari Juarez MD Report Verified Date/Time:08/16/2016 14:04:47 Reading Location: [address] Radiology Reading Room Procedure Note Interface, External Ris In - 08/16/2016 2:07 PM CDT FINAL REPORT TECHNIQUE: Frontal and lateral views of the chest. INDICATION: 41-year-old man for renal transplant evaluation. COMPARISON: None. FINDINGS: LINES/TUBES: Right internal jugular dual lumen dialysis catheter terminates over the expected region of the cavoatrial junction. LUNGS: The lungs are well inflated and clear. PLEURA: Small-moderate left pleural effusion. HEART AND MEDIASTINUM: The cardiomediastinal silhouette is mildly enlarged. SOFT TISSUES AND BONES: Unremarkable. IMPRESSION: Small-moderate left pleural effusion. Otherwise, no acute cardiopulmonary abnormalities. Signed: Bakari Juarez MD Report Verified Date/Time: 08/16/2016 14:04:47 Reading Location: [address] Radiology Reading Room Type and Screen, Automated (08/16/2016 8:01 AM) Component Value Ref Range ABO/RH AUTOMATED (BEAKER) A POSITIVE Ab Scrn NEGATIVE Specimen Performing Laboratory Blood [facility] [address] [address] ANESTHESIA PERIPHERAL BLOCK (06/30/2016 11:30 AM) Narrative Melissa Gonzalez MD 06/30/2016 11:30 AM Peripheral Block Patient location during procedure: pre-op Start time: 06/30/2016 11:00 AM End time: 06/30/2016 11:08 AM Reason for block: procedure for pain, at surgeon's request and post-op pain management Staffing Anesthesiologist: MELISSA GONZALEZ Performed by: anesthesiologist Preanesthetic Checklist Completed: patient identified, site marked, surgical consent, pre-op evaluation, timeout performed, IV checked, risks and benefits discussed and monitors and equipment checked Peripheral Block Patient position: supine Prep: ChloraPrep Patient monitoring: heart rate, phototypesetting equipment monitor and continuous pulse ox Block type: supraclavicular Laterality: left Injection technique: single-shot Procedures: ultrasound guided and landmark technique Local infiltration: ropivicaine Infiltration strength: 0.5 % Dose: 20 mL Needle Needle type: short-bevel Needle gauge: 21 G Needle length: 100 mm Assessment Injection assessment: negative aspiration for heme, no paresthesia on injection, incremental injection and local visualized surrounding nerve on ultrasound Paresthesia pain: none Heart rate change: no Slow fractionated injection: yes Additional Notes No complications noted with procedure Procedure Note Melissa Gonzalez MD - 06/30/2016 11:28 AM CDT Peripheral Block Patient location during procedure: pre-op Start time: 06/30/2016 11:00 AM End time: 06/30/2016 11:08 AM Reason for block: procedure for pain, at surgeon's request and post-op pain management Staffing Anesthesiologist: MELISSA GONZALEZ Performed by: anesthesiologist Preanesthetic Checklist Completed: patient identified, site marked, surgical consent, pre-op evaluation , timeout performed, IV checked, risks and benefits discussed and monitors and equipment checked Peripheral Block Patient position: supine Prep: ChloraPrep Patient monitoring: heart rate, phototypesetting equipment monitor and continuous pulse ox Block type: supraclavicular Laterality: left Injection technique: single-shot Procedures: ultrasound guided and landmark technique Local infiltration: ropivicaine Infiltration strength: 0.5 % Dose: 20 mL Needle Needle type: short-bevel Needle gauge: 21 G Needle length: 100 mm Assessment Injection assessment: negative aspiration for heme, no paresthesia on injection , incremental injection and local visualized surrounding nerve on ultrasound Paresthesia pain: none Heart rate change: no Slow fractionated injection: yes Additional Notes No complications noted with procedure POC-Potassium (06/30/2016 10:53 AM) Component Value Ref Range POC-Potassium 4.4Comment: TESTED AT [address] 3.6 - 5.5 meq/L [address]345 Specimen Performing Laboratory Blood [address] [address] POC-Glucose meter (06/30/2016 10:50 AM) Component Value Ref Range POC-Glucose Meter 223 (H)Comment: TESTED AT [address] 70 - 110 mg/[place] [address] Specimen Performing Laboratory Blood [address] [address] after 06/24/2016
--- OUTSIDE RECORDS SUMMARY | 2017-06-25 01:08 | XMS REPORT ---
:1975 [facility] Address [address] [place] [address] Care Team Providers Name Role Phone JAZMYNE ACEVES Unavailable Unavailable OSCAR LEVY Unavailable Unavailable BENY VALLES Unavailable Unavailable Problems This patient has no known problems. Allergies, Adverse Reactions, Alerts This patient has no known allergies or adverse reactions. Medications This patient has no known medications. Results Test Description Test Time Test Comments Text Results Atomic Results Result Comments TSH 2017-02-23 12:02:00 Test Item Value Reference Range Comments THYROID STIMULATING HORMONE (BEAKER) (test akzh=831) 3.60 uIU/mL 0.35-4.94 BASIC METABOLIC [id number] 10:05:00 Test Item Value Reference Range Comments SODIUM (BEAKER) (test 137 meq/L 136-145 xpdq=099) POTASSIUM (BEAKER) (test 4.8 meq/L 3.5-5.1 kygw=059) CHLORIDE (BEAKER) (test 97 meq/L 98-107 sxzl=762) CO2 (BEAKER) (test 26 meq/L 22-29 ksfk=998) BLOOD UREA NITROGEN 29 mg/dL 7-21 (BEAKER) (test utlc=345) CREATININE (BEAKER) (test 5.65 mg/dL 0.57-1.25 flim=419) GLUCOSE RANDOM (BEAKER) 194 mg/dL 70-105 (test uues=648) CALCIUM (BEAKER) (test 9.3 mg/dL 8.4-10.2 tmln=053) EGFR (BEAKER) (test 11 mL/min/1.73 sq m ESTIMATED GFR IS NOT hmsb=4698) ACCURATE CREATININE CLEARANCE IN PREDICTING GLOMERULAR FILTRATION RATE. ESTIMATED GFR IS NOT APPLICABLE FOR DIALYSIS PATIENTS. B-TYPE NATRIURETIC FACTOR (BNP)2017-02-23 09:58:00 Test Item Value Reference Range Comments B-TYPE NATRIURETIC PEPTIDE (BEAKER) (test 875 pg/mL 0-100 jdrl=938) LIPID [id number] 09:55:00 Test Item Value Reference Range Comments TRIGLYCERIDES (BEAKER) (test ynkn=852) 102 mg/dL CHOLESTEROL (BEAKER) (test kxgm=550) 166 mg/dL HDL CHOLESTEROL (BEAKER) (test bpzf=700) 55 mg/dL LDL CHOLESTEROL CALCULATED (BEAKER) (test 91 mg/dL tsdb=400) Triglyceride Reference Range: Low Risk <150 Borderline 150- 199 High Risk 200-499 Very High Risk >=500Cholesterol Reference Range: Low Risk <200 Borderline 200-239 High Risk > 240HDL Cholesterol Reference Range: Low Risk >=60 High Risk <40LDL Cholesterol Reference Range: Optimal <100 Near Optimal 100-129 Borderline 130-159 High 160-189 Very High >=190HEPATIC FUNCTION [id number] 09:55:00 Test Item Value Reference Range Comments TOTAL PROTEIN (BEAKER) (test tsnd=903) 7.8 gm/dL 6.0-8.3 ALBUMIN (BEAKER) (test shnx=7574) 3.9 g/dL 3.5-5.0 BILIRUBIN TOTAL (BEAKER) (test krmx=842) 0.6 mg/dL 0.2-1.2 BILIRUBIN DIRECT (BEAKER) (test iebe=506) 0.2 mg/dL 0.1-0.5 ALKALINE PHOSPHATASE (BEAKER) (test vsgj=014) 112 U/L 40-150 AST (SGOT) (BEAKER) (test euhb=908) 12 U/L 5-34 ALT (SGPT) (BEAKER) (test hlpz=429) 8 U/L 6-55 CBC W/PLT COUNT & AUTO [id number] 09:04:00 Test Item Value Reference Range Comments WHITE BLOOD CELL COUNT (BEAKER) (test fajp=235) 8.7 K/ L 3.5-10.5 RED BLOOD CELL COUNT (BEAKER) (test sglu=667) 4.15 M/ L 4.63-6.08 HEMOGLOBIN (BEAKER) (test sfzu=015) 11.7 GM/DL 13.7-17.5 HEMATOCRIT (BEAKER) (test lkff=983) 35.8 % 40.1-51.0 MEAN CORPUSCULAR VOLUME (BEAKER) (test yjqh=271) 86.3 fL 79.0-92.2 MEAN CORPUSCULAR HEMOGLOBIN (BEAKER) (test 28.2 pg 25.7-32.2 gdgk=728) MEAN CORPUSCULAR HEMOGLOBIN CONC (BEAKER) (test 32.7 GM/DL 32.3-36.5 jacq=016) RED CELL DISTRIBUTION WIDTH (BEAKER) (test 13.2 % 11.6-14.4 rlth=696) PLATELET COUNT (BEAKER) (test zssx=709) 174 K/CU MM 150-450 MEAN PLATELET VOLUME (BEAKER) (test bwtm=782) 12.4 fL 9.4-12.4 NUCLEATED RED BLOOD CELLS (BEAKER) (test 0 /100 WBC 0-0 oxyv=552) NEUTROPHILS RELATIVE PERCENT (BEAKER) (test 65 % dfzy=093) LYMPHOCYTES RELATIVE PERCENT (BEAKER) (test 21 % tilk=889) MONOCYTES RELATIVE PERCENT (BEAKER) (test 9 % rymb=742) EOSINOPHILS RELATIVE PERCENT (BEAKER) (test 4 % vwns=816) BASOPHILS RELATIVE PERCENT (BEAKER) (test 1 % csip=508) NEUTROPHILS ABSOLUTE COUNT (BEAKER) (test 5.66 K/ L 1.78-5.38 ezdl=589) LYMPHOCYTES ABSOLUTE COUNT (BEAKER) (test 1.78 K/ L 1.32-3.57 tlvw=171) MONOCYTES ABSOLUTE COUNT (BEAKER) (test 0.80 K/ L 0.30-0.82 fmvc=140) EOSINOPHILS ABSOLUTE COUNT (BEAKER) (test 0.30 K/ L 0.04-0.54 rjac=952) BASOPHILS ABSOLUTE COUNT (BEAKER) (test 0.09 K/ L 0.01-0.08 rjul=911) IMMATURE GRANULOCYTES-RELATIVE PERCENT (BEAKER) 1 % 0-1 (test ifdt=1223) HLA [id number] 15:01:00 Test Item Value Reference Range Comments HLA RESULT (BEAKER) (test ejmd=6780) See Scanned Report HLA-A AG1 (BEAKER) (test xtbk=9623) HLA-A AG2 (BEAKER) (test powb=5480) HLA-B AG1 (BEAKER) (test phoo=0174) HLA-B AG2 (BEAKER) (test upgs=2075) HLA-C AG1 (BEAKER) (test lggf=4346) HLA-C AG2 (BEAKER) (test tftt=2239) HLA-DR AG1 (BEAKER) (test jhkz=6427) HLA-DR AG2 (BEAKER) (test witu=4885) HLA-DQ AG1 (BEAKER) (test kujy=7278) HLA-DQ AG2 (BEAKER) (test nyou=4573) HLA-DRW (BEAKER) (test rqwn=3646) FLOW PRA CLASS I AND [id number] 08:31:00 Test Item Value Reference Range Comments DATE OF SERUM (BEAKER) (test mpwm=7906) [id number] SERUM # (BEAKER) (test dwjl=4858) [id number] FLOW PRA CLASS I AND II (test knhy=1612) See Scanned Report VARICELLA ZOSTER ANTIBODY, [id number] 10:13:00 Test Item Value Reference Range Comments VARICELLA ZOSTER IGG (AL) (BEAKER) (test gira=8810) 3.0 Al VARICELLA ZOSTER RESULT INTERPRETATIONS: <=0.8 Al Nonreactive: Presumed non-immune to VZV 0.9-1.0 Al Equivocal >=1.1 Al Reactive: Presumed immune to VZVCYTOMEGALOVIRUS ANTIBODY, [id number] 10:04:00 Test Item Value Reference Range Comments CYTOMEGALOVIRUS IGG ANTIBODY (BEAKER) (test Negative hjet=917) CYTOMEGALOVIRUS ANTIBODY, [id number] 10:04:00 Test Item Value Reference Range Comments CYTOMEGALOVIRUS IGM ANTIBODY (BEAKER) (test Negative flxn=133) EBV-VCA ANTIBODY, [id number] 10:04:00 Test Item Value Reference Range Comments PAULY-BOB VCA IGG (BEAKER) (test xxep=741) Positive EBV-VCA ANTIBODY, [id number] 10:04:00 Test Item Value Reference Range Comments PAULY-BOB VCA IGM (BEAKER) (test ehwj=483) Negative URINE [id number] 13:00:00 Test Item Value Reference Range Comments CULTURE (BEAKER) (test tepq=8753) No growth [id number] 06:05:00 Test Item Value Reference Range Comments RPR SCREEN (BEAKER) (test gjot=582) Nonreactive Nonreactive HEMOGLOBIN [id number] 14:45:00 Test Item Value Reference Range Comments HEMOGLOBIN A1C (BEAKER) (test fwxg=436) 7.9 % 4.3-6.1 URINALYSIS W/ [id number] 11:34:00 Test Item Value Reference Range Comments COLOR (BEAKER) (test ciyf=317) Yellow CLARITY (BEAKER) (test uxjv=391) Clear SPECIFIC GRAVITY UA (BEAKER) (test sgzu=840) 1.017 1.001-1.035 PH UA (BEAKER) (test yrbv=392) 8.5 5.0-8.0 PROTEIN UA (BEAKER) (test vmcb=092) >600 mg/dL Negative GLUCOSE UA (BEAKER) (test loer=206) 200 mg/dL Negative KETONES UA (BEAKER) (test qbjd=687) Negative Negative BILIRUBIN UA (BEAKER) (test egnt=812) Negative Negative BLOOD UA (BEAKER) (test jtqr=226) Small Negative NITRITE UA (BEAKER) (test xzmm=592) Negative Negative LEUKOCYTE ESTERASE UA (BEAKER) (test qess=518) Negative Negative UROBILINOGEN UA (BEAKER) (test xcrt=580) 0.2 mg/dL 0.2-1.0 RBC UA (BEAKER) (test sphu=801) 21 /HPF WBC UA (BEAKER) (test lljb=550) 2 /HPF HYALINE CASTS (BEAKER) (test drce=496) 5 /LPF SOURCE(BEAKER) (test yrlj=3408) HEPATITIS B SURFACE [id number] 11:03:00 Test Item Value Reference Range Comments HEPATITIS B SURFACE ANTIGEN (2) (BEAKER) (test Nonreactive Nonreactive imqz=4561) HEPATITIS B SURFACE [id number] 11:03:00 Test Item Value Reference Range Comments HEPATITIS B SURFACE ANTIBODY (BEAKER) (test 78.1 mIU/mL <8.0 ufnw=667) HEPATITIS B CORE ANTIBODY, [id number] 11:03:00 Test Item Value Reference Range Comments HEPATITIS B CORE IGM ANTIBODY (BEAKER) (test Nonreactive Nonreactive guwo=491) HEPATITIS C [id number] 11:03:00 Test Item Value Reference Range Comments HEPATITIS C ANTIBODY (BEAKER) (test dzgi=112) Nonreactive Nonreactive HIV-1 ANTIGEN WITH HIV-1/2 [id number] 11:03:00 Test Item Value Reference Range Comments HIV-1 ANTIGEN WITH HIV 1\T\2 ANTIBODY (2) Nonreactive Nonreactive (BEAKER) (test smzh=8812) COMPREHENSIVE METABOLIC [id number] 10:45:00 Test Item Value Reference Range Comments TOTAL PROTEIN (BEAKER) 7.3 gm/dL 6.0-8.3 (test napp=671) ALBUMIN (BEAKER) (test 3.8 g/dL 3.5-5.0 qmgr=1261) ALKALINE PHOSPHATASE 119 U/L 40-150 (BEAKER) (test bjss=347) BILIRUBIN TOTAL (BEAKER) 0.5 mg/dL 0.2-1.2 (test twvb=466) SODIUM (BEAKER) (test 140 meq/L 136-145 rcfb=668) POTASSIUM (BEAKER) (test 4.1 meq/L 3.5-5.1 wysc=871) CHLORIDE (BEAKER) (test 98 meq/L 98-107 wigv=229) CO2 (BEAKER) (test 34 meq/L 22-29 jrsy=142) BLOOD UREA NITROGEN 17 mg/dL 7-21 (BEAKER) (test zcdb=005) CREATININE (BEAKER) (test 5.48 mg/dL 0.57-1.25 zqoc=674) GLUCOSE RANDOM (BEAKER) 102 mg/dL 70-105 (test npeq=969) CALCIUM (BEAKER) (test 9.4 mg/dL 8.4-10.2 ywfc=933) AST (SGOT) (BEAKER) (test 13 U/L 5-34 wbhz=804) ALT (SGPT) (BEAKER) (test 8 U/L 6-55 coke=489) EGFR (BEAKER) (test 12 mL/min/1.73 sq m ESTIMATED GFR IS NOT okdb=8233) ACCURATE CREATININE CLEARANCE IN PREDICTING GLOMERULAR FILTRATION RATE. ESTIMATED GFR IS NOT APPLICABLE FOR DIALYSIS PATIENTS. PTH, [id number] 10:33:00 Test Item Value Reference Range Comments PARATHYROID HORMONE INTACT (BEAKER) (test 335.9 pg/mL 8.5-72.5 afil=372) URIC [id number] 10:27:00 Test Item Value Reference Range Comments URIC ACID (BEAKER) (test dwoo=121) 3.8 mg/dL 2.6-7.2 [id number] 10:27:00 Test Item Value Reference Range Comments PHOSPHORUS (BEAKER) (test bxht=946) 2.9 mg/dL 2.3-4.7 LIPID [id number] 10:27:00 Test Item Value Reference Range Comments TRIGLYCERIDES (BEAKER) (test mmzd=962) 79 mg/dL CHOLESTEROL (BEAKER) (test jeae=802) 156 mg/dL HDL CHOLESTEROL (BEAKER) (test wimd=322) 49 mg/dL LDL CHOLESTEROL CALCULATED (BEAKER) (test 91 mg/dL dbml=935) Triglyceride Reference Range: Low Risk <150 Borderline 150- 199 High Risk 200-499 Very High Risk >=500Cholesterol Reference Range: Low Risk <200 Borderline 200-239 High Risk > 240HDL Cholesterol Reference Range: Low Risk >=60 High Risk <40LDL Cholesterol Reference Range: Optimal <100 Near Optimal 100-129 Borderline 130-159 High 160-189 Very High >=190GAMMA GLUTAMYL TRANSFERASE (GGT)2016-11-17 10:27:00 Test Item Value Reference Range Comments GAMMA GLUTAMYL TRANSFERASE (BEAKER) (test qnbw=253) 32 U/L 9-64 LACTATE DEHYDROGENASE (LDH)2016-11-17 10:27:00 Test Item Value Reference Range Comments LACTATE DEHYDROGENASE (BEAKER) (test giem=487) 252 U/L 125-220 [id number] 10:11:00 Test Item Value Reference Range Comments PROTIME (BEAKER) (test bhxw=685) 14.3 seconds 11.7-14.7 INR (BEAKER) (test zlso=069) 1.1 <=5.9 PARTIAL THROMBOPLASTIN TIME (BEAKER) (test 32.2 seconds 22.5-36.0 kmkv=828) RECOMMENDED COUMADIN/WARFARIN INR THERAPY RANGESSTANDARD DOSE: 2.0 - 3.0 Includes: PROPHYLAXIS forvenous thrombosis, systemic embolization; TREATMENT for venous thrombosis and/or pulmonary embolus.HIGH RISK: Target INR is 2.5-3.5 for patients with mechanical heart valves.CBC W/PLT COUNT & AUTO [id number] 10:05:00 Test Item Value Reference Range Comments WHITE BLOOD CELL COUNT (BEAKER) (test xsrx=805) 7.0 K/ L 3.5-10.5 RED BLOOD CELL COUNT (BEAKER) (test gyoc=032) 4.06 M/ L 4.63-6.08 HEMOGLOBIN (BEAKER) (test tcgb=241) 11.5 GM/DL 13.7-17.5 HEMATOCRIT (BEAKER) (test pzbz=761) 36.6 % 40.1-51.0 MEAN CORPUSCULAR VOLUME (BEAKER) (test homg=126) 90.1 fL 79.0-92.2 MEAN CORPUSCULAR HEMOGLOBIN (BEAKER) (test 28.3 pg 25.7-32.2 pwgc=806) MEAN CORPUSCULAR HEMOGLOBIN CONC (BEAKER) (test 31.4 GM/DL 32.3-36.5 clip=834) RED CELL DISTRIBUTION WIDTH (BEAKER) (test 15.1 % 11.6-14.4 ihli=040) PLATELET COUNT (BEAKER) (test npfu=725) 222 K/CU MM 150-450 MEAN PLATELET VOLUME (BEAKER) (test gweb=646) 12.7 fL 9.4-12.4 NUCLEATED RED BLOOD CELLS (BEAKER) (test 0 /100 WBC 0-0 coav=592) NEUTROPHILS RELATIVE PERCENT (BEAKER) (test 61 % erdg=268) LYMPHOCYTES RELATIVE PERCENT (BEAKER) (test 24 % zluk=495) MONOCYTES RELATIVE PERCENT (BEAKER) (test 9 % cyjh=375) EOSINOPHILS RELATIVE PERCENT (BEAKER) (test 6 % inhp=342) BASOPHILS RELATIVE PERCENT (BEAKER) (test 1 % puiw=708) NEUTROPHILS ABSOLUTE COUNT (BEAKER) (test 4.23 K/ L 1.78-5.38 mhuq=874) LYMPHOCYTES ABSOLUTE COUNT (BEAKER) (test 1.66 K/ L 1.32-3.57 rmiy=506) MONOCYTES ABSOLUTE COUNT (BEAKER) (test 0.62 K/ L 0.30-0.82 kccv=831) EOSINOPHILS ABSOLUTE COUNT (BEAKER) (test 0.40 K/ L 0.04-0.54 byva=874) BASOPHILS ABSOLUTE COUNT (BEAKER) (test 0.08 K/ L 0.01-0.08 nhpf=847) IMMATURE GRANULOCYTES-RELATIVE PERCENT (BEAKER) 0 % 0-1 (test yczr=4855) OCCULT BLOOD, [id number] 23:03:00 Test Item Value Reference Range Comments FECAL OCCULT BLOOD (BEAKER) (test vlba=913) Negative Negative OCCULT BLOOD, [id number] 23:03:00 Test Item Value Reference Range Comments FECAL OCCULT BLOOD (BEAKER) (test lyds=262) Negative Negative PET, CARDIAC PERFUSION MULTIPLE STUDIES, REST AND [id number] 14:10: 00Reason for Exam:->ESRD/KIDNEY TRANSPLANT EVALFINAL REPORT PROCEDURE: Rest/Stress MYOCARDIAL PERFUSION PET with regadenoson\ XA9\ CPT CODE: 15072 INDICATION: End-stage renal disease, preoperative evaluation for kidney transplantation HISTORY: Cardiac risk factors: Diabetes, hypertension, hyperlipidemia, tobacco abuse. Other cardiovascular history: No reported CAD. Recent cardiac symptoms: None reported. Current cardiovascular-related medications: Norvasc, Lipitor, Coreg, Cardura.PROTOCOL: Limited low-dose CT imaging was performed for attenuation correction. 35.9 mCi of Rb-82 chloride was injected iv atrest, and gated PET (positron emission tomography) images [...] of MPHR) at tracer injection. BP was 130 /67mmHg at rest and 124/59 mmHg at tracer injection. Stress was stopped for predetermined endpoint. Thepatient experienced flushing; treatment was not required. Preliminary [...] normal LV wall motion and thickening. LVEF atrest is 53%. LVEF at stress is 54%. IMPRESSION: 1. Normal study. 2. Appropriate pharmacologic stress. 3. Normal myocardial perfusion. 4. Normal resting LV function. No deterioration of function is noted with pharmacologic stress. 5. Normal extracardiac tracer distribution. 6. No previous [facility] study for comparison. NONINVASIVE RISK STRATIFICATION: The above findings are considered low risk(<1% annual mortality rate) based on the following criterion:- Normal or small myocardial perfusion defect at rest or with stress( JACC. 2012;59(9):857-81.) Signed: Renard Kimbleort Verified Date/Time: 14:10:21 Reading Location: [address] P327B [facility] [place] [facility] Med Reading Room [place], CYSTOGRAM, CINE OR VIDEO, [id number] 13:04:00Reason for Exam:->kidney transplant evaluationFINAL REPORT VCUG: Reason for exam: kidney transplant evaluation Total fluoroscopy time: 0.6 minutes Total number of films: 12 Discussion: Approximately 250 cc of water-soluble contrast material was introduced into the bladder through a bladder catheter. The bladder fills normally with contrast and is normal in morphology. No reflux is noted. The patient was then placed in theupright position and catheter removed. The patient voided spontaneously. A normal male urethra is identified. No postvoid residual is noted. Impression: Normal VCUG Signed: Marie Cisneros MDReport Verified Date/Time: 10/11/2016 13:04:21 Reading Location: [facility] B1 C013X Ortho Consult Reading Room Electronically signed by: MARIE CISNEROS M.D. on 2016 01:04 PMVARICELLA ZOSTER ANTIBODY, [id number] 16:40:00 Test Item Value Reference Range Comments VARICELLA ZOSTER IGG (AL) (BEAKER) (test dbld=4173) 2.8 Al VARICELLA ZOSTER RESULT INTERPRETATIONS: <=0.8 Al Nonreactive: Presumed non-immune to VZV 0.9-1.0 Al Equivocal >=1.1 Al Reactive: Presumed immune to VZVCYTOMEGALOVIRUS ANTIBODY, [id number] 06:52:00 Test Item Value Reference Range Comments CYTOMEGALOVIRUS IGG ANTIBODY (BEAKER) (test Negative btuq=353) CYTOMEGALOVIRUS ANTIBODY, [id number] 06:52:00 Test Item Value Reference Range Comments CYTOMEGALOVIRUS IGM ANTIBODY (BEAKER) (test Negative weor=756) EBV-VCA ANTIBODY, [id number] 06:52:00 Test Item Value Reference Range Comments PAULY-BOB VCA IGG (BEAKER) (test gkop=713) Positive EBV-VCA ANTIBODY, [id number] 06:52:00 Test Item Value Reference Range Comments PAULY-BOB VCA IGM (BEAKER) (test cpnv=560) Negative URINE [id number] 12:59:00 Test Item Value Reference Range Comments CULTURE (BEAKER) (test kpzm=8276) No growth HEPATITIS B SURFACE [id number] 13:18:00 Test Item Value Reference Range Comments HEPATITIS B SURFACE ANTIGEN Reactive Nonreactive Reactive Hepatitis B Surface (2) (BEAKER) (test Antigen result; Confirmed by ioni=3988) Hepatitis B Surface Antigen Neutralization testing. [id number] 11:51:00 Test Item Value Reference Range Comments RPR SCREEN (BEAKER) (test imvw=320) Nonreactive Nonreactive HEMOGLOBIN [id number] 11:05:00 Test Item Value Reference Range Comments HEMOGLOBIN A1C (BEAKER) (test gksn=492) 8.2 % 4.3-6.1 HEPATITIS B SURFACE [id number] 10:37:00 Test Item Value Reference Range Comments HEPATITIS B SURFACE ANTIBODY (BEAKER) (test < mIU/mL <8.0 cxjq=796) PTH, [id number] 10:24:00 Test Item Value Reference Range Comments PARATHYROID HORMONE INTACT (BEAKER) (test 424.7 pg/mL 8.5-72.5 rnvv=828) Effective 12/23/2013: Reference Range ChangeNew: 8.5-72.5 Previous: 15.0- 90.0URINALYSIS W/ [id number] 10:19:00 Test Item Value Reference Range Comments COLOR (BEAKER) (test anqp=839) Yellow CLARITY (BEAKER) (test ogyh=540) Clear SPECIFIC GRAVITY UA (BEAKER) (test jnnc=958) 1.013 1.001-1.035 PH UA (BEAKER) (test cfpp=865) 7.5 5.0-8.0 PROTEIN UA (BEAKER) (test ditc=311) 600 mg/dL Negative GLUCOSE UA (BEAKER) (test bukv=198) >1000 mg/dL Negative KETONES UA (BEAKER) (test zwxu=135) Negative Negative BILIRUBIN UA (BEAKER) (test qhui=558) Negative Negative BLOOD UA (BEAKER) (test hccq=453) Moderate Negative NITRITE UA (BEAKER) (test junq=427) Negative Negative LEUKOCYTE ESTERASE UA (BEAKER) (test fxqx=379) Negative Negative UROBILINOGEN UA (BEAKER) (test koar=208) 0.2 mg/dL 0.2-1.0 RBC UA (BEAKER) (test vzjt=745) 9 /HPF WBC UA (BEAKER) (test gxmb=799) 3 /HPF HYALINE CASTS (BEAKER) (test ahhi=708) 2 /LPF SOURCE(BEAKER) (test gzgx=3569) HEPATITIS B CORE ANTIBODY, [id number] 09:46:00 Test Item Value Reference Range Comments HEPATITIS B CORE IGM ANTIBODY (BEAKER) (test Nonreactive Nonreactive zfeo=120) HEPATITIS C [id number] 09:46:00 Test Item Value Reference Range Comments HEPATITIS C ANTIBODY (BEAKER) (test ixph=839) Nonreactive Nonreactive HIV-1 ANTIGEN WITH HIV-1/2 [id number] 09:46:00 Test Item Value Reference Range Comments HIV-1 ANTIGEN WITH HIV 1\T\2 ANTIBODY (2) Nonreactive Nonreactive (BEAKER) (test pism=3489) COMPREHENSIVE METABOLIC [id number] 09:33:00 Test Item Value Reference Range Comments TOTAL PROTEIN (BEAKER) 6.5 gm/dL 6.0-8.3 (test ndnn=087) ALBUMIN (BEAKER) (test 3.4 g/dL 3.5-5.0 zzyy=1181) ALKALINE PHOSPHATASE 97 U/L 40-150 (BEAKER) (test yusv=273) BILIRUBIN TOTAL (BEAKER) 0.5 mg/dL 0.2-1.2 (test rbrc=304) SODIUM (BEAKER) (test 136 meq/L 136-145 slyp=212) POTASSIUM (BEAKER) (test 3.1 meq/L 3.5-5.1 vbko=856) CHLORIDE (BEAKER) (test 97 meq/L 98-107 fabm=240) CO2 (BEAKER) (test 28 meq/L 22-29 llth=484) BLOOD UREA NITROGEN 31 mg/dL 7-21 (BEAKER) (test mzju=678) CREATININE (BEAKER) (test 5.55 mg/dL 0.57-1.25 okhu=093) GLUCOSE RANDOM (BEAKER) 226 mg/dL 70-105 (test jumy=829) CALCIUM (BEAKER) (test 8.5 mg/dL 8.4-10.2 grhn=199) AST (SGOT) (BEAKER) (test 14 U/L 5-34 wptw=573) ALT (SGPT) (BEAKER) (test 8 U/L 6-55 amfg=754) EGFR (BEAKER) (test 11 mL/min/1.73 sq m ESTIMATED GFR IS NOT ilka=5825) ACCURATE CREATININE CLEARANCE IN PREDICTING GLOMERULAR FILTRATION RATE. ESTIMATED GFR IS NOT APPLICABLE FOR DIALYSIS PATIENTS. PT/[id number] 09:30:00 Test Item Value Reference Range Comments PROTIME (BEAKER) (test kolq=931) 13.7 seconds 11.7-14.7 INR (BEAKER) (test jqgi=972) 1.1 <=5.9 PARTIAL THROMBOPLASTIN TIME (BEAKER) (test 28.7 seconds 22.5-36.0 cnqb=938) RECOMMENDED COUMADIN/WARFARIN INR THERAPY RANGESSTANDARD DOSE: 2.0 - 3.0 Includes: PROPHYLAXIS forvenous thrombosis, systemic embolization; TREATMENT for venous thrombosis and/or pulmonary embolus.HIGH RISK: Target INR is 2.5-3.5 for patients with mechanical heart valves.URIC [id number] 09:27:00 Test Item Value Reference Range Comments URIC ACID (BEAKER) (test przs=098) 3.9 mg/dL 2.6-7.2 [id number] 09:27:00 Test Item Value Reference Range Comments PHOSPHORUS (BEAKER) (test zcxu=538) 3.9 mg/dL 2.3-4.7 GAMMA GLUTAMYL TRANSFERASE (GGT)2016-08-16 09:27:00 Test Item Value Reference Range Comments GAMMA GLUTAMYL TRANSFERASE (BEAKER) (test hhqh=815) 34 U/L 9-64 LACTATE DEHYDROGENASE (LDH)2016-08-16 09:27:00 Test Item Value Reference Range Comments LACTATE DEHYDROGENASE (BEAKER) (test ribg=218) 237 U/L 125-220 CBC W/PLT COUNT & AUTO [id number] 09:23:00 Test Item Value Reference Range Comments WHITE BLOOD CELL COUNT (BEAKER) (test vxpf=817) 7.3 K/ L 4.0-10.0 RED BLOOD CELL COUNT (BEAKER) (test njwn=398) 4.49 M/ L 4.20-5.80 HEMOGLOBIN (BEAKER) (test kmmh=340) 13.8 GM/DL 13.0-16.8 HEMATOCRIT (BEAKER) (test hcen=436) 41.0 % 40.0-50.0 MEAN CORPUSCULAR VOLUME (BEAKER) (test jiok=188) 91.3 fL 82.0-98.0 MEAN CORPUSCULAR HEMOGLOBIN (BEAKER) (test 30.7 pg 27.0-33.0 zguj=633) MEAN CORPUSCULAR HEMOGLOBIN CONC (BEAKER) (test 33.7 GM/DL 32.0-36.0 bwpy=855) RED CELL DISTRIBUTION WIDTH (BEAKER) (test 15.5 % 10.3-14.2 kcdg=395) PLATELET COUNT (BEAKER) (test khwf=755) 169 K/CU MM 150-430 MEAN PLATELET VOLUME (BEAKER) (test rogk=825) 10.9 fL 6.5-10.5 NUCLEATED RED BLOOD CELLS (BEAKER) (test 0 /100 WBC 0-0 idlc=714) NEUTROPHILS RELATIVE PERCENT (BEAKER) (test 64 % aqxf=065) LYMPHOCYTES RELATIVE PERCENT (BEAKER) (test 23 % kzgg=881) MONOCYTES RELATIVE PERCENT (BEAKER) (test 8 % xiys=732) EOSINOPHILS RELATIVE PERCENT (BEAKER) (test 4 % uxla=029) BASOPHILS RELATIVE PERCENT (BEAKER) (test 1 % ezbs=813) NEUTROPHILS ABSOLUTE COUNT (BEAKER) (test 4.68 K/ L 1.80-8.00 brry=853) LYMPHOCYTES ABSOLUTE COUNT (BEAKER) (test 1.66 K/ L 1.48-4.50 cwuv=527) MONOCYTES ABSOLUTE COUNT (BEAKER) (test 0.57 K/ L 0.00-1.30 ayoa=044) EOSINOPHILS ABSOLUTE COUNT (BEAKER) (test 0.30 K/ L 0.00-0.50 whqm=774) BASOPHILS ABSOLUTE COUNT (BEAKER) (test 0.06 K/ L 0.00-0.20 irrc=442) [id number] 10:56:00 Test Item Value Reference Range Comments POC-POTASSIUM (BEAKER) (test 4.4 meq/L 3.6-5.5 TESTED AT [address] adnp=6274) [place] [address] POCT-GLUCOSE [id number] 10:52:00 Test Item Value Reference Range Comments POC-GLUCOSE METER (BEAKER) 223 mg/dL 70-110 TESTED AT [address] (test ozli=3636) [place] [address] BUN AND [id number] 14:13:00 Test Item Value Reference Range Comments BLOOD UREA NITROGEN 36 mg/dL 7-21 (BEAKER) (test vrzm=865) CREATININE (BEAKER) (test 4.50 mg/dL 0.57-1.25 sljo=663) EGFR (BEAKER) (test 15 mL/min/1.73 sq m ESTIMATED GFR IS NOT ytqf=3443) ACCURATE CREATININE CLEARANCE IN PREDICTING GLOMERULAR FILTRATION RATE. ESTIMATED GFR IS NOT APPLICABLE FOR DIALYSIS PATIENTS. [id number] 14:03:00 Test Item Value Reference Range Comments SODIUM (BEAKER) (test finh=425) 139 meq/L 136-145 POTASSIUM (BEAKER) (test dbge=759) 4.2 meq/L 3.5-5.1 CHLORIDE (BEAKER) (test fcpy=872) 104 meq/L 98-107 CO2 (BEAKER) (test zqyl=699) 27 meq/L 22-29 [id number] 14:00:00 Test Item Value Reference Range Comments GLUCOSE RANDOM (BEAKER) (test xqrp=733) 77 mg/dL 70-105 Effective 12/23/2013: Reference Range Change-Adult onlyNew: 70-105 Previous : [id number] 13:51:00 Test Item Value Reference Range Comments HEMOGLOBIN (BEAKER) (test anec=504) 9.9 GM/DL 13.0-16.8 PLATELET [id number] 13:44:00 Test Item Value Reference Range Comments PLATELET COUNT (BEAKER) (test rdsh=133) 131 K/CU MM 150-430 POCT-GLUCOSE [id number] 09:51:00 Test Item Value Reference Range Comments POC-GLUCOSE METER (BEAKER) 210 mg/dL 70-110 TESTED AT [facility] [address] [facility] (test kusd=5075) [facility] [address] POCT-GLUCOSE [id number] 07:49:00 Test Item Value Reference Range Comments POC-GLUCOSE METER (BEAKER) 214 mg/dL 70-110 TESTED AT [address] (test fqeu=7657) [facility] [id number] 07:19:00 Test Item Value Reference Range Comments POC-POTASSIUM (BEAKER) (test 5.1 meq/L 3.6-5.5 TESTED AT [address] ifjw=1651) [facility] [id number] BUN AND [id number] 12:34:00 Test Item Value Reference Range Comments BLOOD UREA NITROGEN 70 mg/dL 7-21 (BEAKER) (test qxoc=400) CREATININE (BEAKER) (test 8.17 mg/dL 0.57-1.25 onas=777) EGFR (BEAKER) (test 7 mL/min/1.73 sq m ESTIMATED GFR IS NOT aeay=2475) ACCURATE CREATININE CLEARANCE IN PREDICTING GLOMERULAR FILTRATION RATE. ESTIMATED GFR IS NOT APPLICABLE FOR DIALYSIS PATIENTS. [id number] 12:34:00 Test Item Value Reference Range Comments SODIUM (BEAKER) (test ccqm=660) 137 meq/L 136-145 POTASSIUM (BEAKER) (test jfhk=740) 5.1 meq/L 3.5-5.1 CHLORIDE (BEAKER) (test twob=252) 111 meq/L 98-107 CO2 (BEAKER) (test rqvs=709) 15 meq/L 22-29 [id number] 12:29:00 Test Item Value Reference Range Comments GLUCOSE RANDOM (BEAKER) (test fxxa=929) 186 mg/dL 70-105 Effective 12/23/2013: Reference Range Change-Adult onlyNew: 70-105 Previous : [id number] 12:21:00 Test Item Value Reference Range Comments HEMOGLOBIN (BEAKER) (test dmev=805) 9.3 GM/DL 13.0-16.8 PLATELET [id number] 12:19:00 Test Item Value Reference Range Comments PLATELET COUNT (BEAKER) (test zhio=149) 254 K/CU MM 150-430
[2017-06-25 02:35] LABS: Absolute Lymphocytes (CBC) 1.3 K/uL (0.7-4.9); Absolute Monocytes 0.6 K/uL (0.1-1.3); Absolute Neutrophil 7.3 K/uL (1.8-8.0); Basophils % 0.8 % (0-1.3); Hematocrit 31.9 % (39.6-49.0); Lymphocytes % 13.8 % (15.3-44.8); MCH 26.6 pg (27.0-35.0); MCV 85.6 fL (80-100); MPV 12.6 fL (7.6-11.3); Monocytes % 6.3 % (3.3-12.3); RBC Red Blood Cell Count 3.72 M/uL (4.33-5.43)
[2017-06-25 02:46] LABS: Protime INR 1.07
[2017-06-25 02:48] LABS: Potassium 5.2 mEq/L (3.6-5.0)
[2017-06-25 02:54] LABS: Albumin 3.3 g/dL (3.2-5.5); Bilirubin Direct 0.1 mg/dL (0-0.2); Bilirubin Total 0.3 mg/dL (0.3-1.2); Magnesium 2.2 mg/dL (1.8-2.5); Protein, Total 7.4 g/dL (6.0-8.3)
[2017-06-25 02:56] LABS: CKMB Creatine Kinase MB 2.7 ng/ml (0.3-4.0)
[2017-06-25 03:06] LABS: Arterial Blood Carboxyhemoglob 1.4 % (0-1.5); Blood Gas Oxyhemoglobin 77.8 % (94-97); Blood O2 Saturation 79.8 % (92-98.5)
--- NOTE | 2017-06-25 04:09 | EDPHYS ---
Physician Documentation [facility] Name: Vance Barrera Age: 41 yrs Sex: Male : 1975 Arrival Date: 06/25/2017 Time: 01:08 Bed 17 Private MD: Luisito Hicks ED Physician Alf Doran HPI: 06/25 02:32 This 41 yrs old Male presents to ER via Ambulatory with complaints of Fluid on pkl lung. 02:32 The patient has shortness of breath at rest. Onset: The symptoms/episode began/occurred pkl yesterday. Patient was seen in Hospital ER in [place] for fever and shortness of breath. Was told he has fluid in the lung. Patient decided to return home for further treatment.. Historical: - Allergies: :43 No Known Allergies; bb - Home Meds: :43 Unable to obtain [Active]; bb - PMHx: :43 Diabetes - IDDM; bb - PSHx: :43 None; bb - Immunization history:: Adult Immunizations unknown. - Social history:: Smoking status: Patient/guardian denies using tobacco. ROS: 02:32 Eyes: Negative for injury, pain, redness, and discharge, ENT: Negative for injury, pkl pain, and discharge, Neck: Negative for injury, pain, and swelling, Cardiovascular: Negative for chest pain, palpitations, and edema. 02:32 Respiratory: Positive for shortness of breath, at rest. 02:32 Abdomen/GI: Negative for abdominal pain, nausea, vomiting, and diarrhea. 02:32 Back: Negative for acute changes. 02:32 : Negative for urinary symptoms. 02:32 MS/extremity: Negative for acute changes. 02:32 Skin: Negative for rash. 02:32 Neuro: Negative for altered mental status. Exam: 02:32 Head/Face: Normocephalic, atraumatic. Eyes: Pupils equal round and reactive to light, pkl extra-ocular motions intact. Lids and lashes normal. Conjunctiva and sclera are non-icteric and not injected. Cornea within normal limits. Periorbital areas with no swelling, redness, or edema. ENT: Nares patent. No nasal discharge, no septal abnormalities noted. Tympanic membranes are normal and external auditory canals are clear. Oropharynx with no redness, swelling, or masses, exudates, or evidence of obstruction, uvula midline. Mucous membranes moist. Neck: Trachea midline, no thyromegaly or masses palpated, and no cervical lymphadenopathy. Supple, full range of motion without nuchal rigidity, or vertebral point tenderness. No Meningismus. Chest/axilla: Normal chest wall appearance and motion. Nontender with no deformity. No lesions are appreciated. Cardiovascular: Regular rate and rhythm with a normal S1 and S2. No gallops, murmurs, or rubs. Normal PMI, no JVD. No pulse deficits. 02:32 Respiratory: mild respiratory distress is noted, Respirations: labored breathing, that is mild, Breath sounds: decreased breath sounds, that are moderate, are heard in the left lung. 02:32 Abdomen/GI: Bowel sounds: normal, Palpation: abdomen is soft and non-tender, in all quadrants. 02:32 Back: Exam negative for acute changes. 02:32 : Exam negative for acute changes. 02:32 Musculoskeletal/extremity: Exam is negative for acute changes. 02:32 Skin: Exam negative for rash. 02:32 Neuro: Orientation: is normal, Mentation: is normal, Cranial nerves: grossly normal, Motor: is normal. Vital Signs: 01:43 BP 118 / 76; Pulse 79; Resp 20 S; Temp 97.9(O); Pulse Ox 88% on R/A; Weight 44.45 kg bb (R); Height 5 ft. 0 in. (152.40 cm) (R); Pain 0/10; 01:43 Pulse Ox 97% on 2 lpm NC; bb 02:23 BP 124 / 88; Pulse 74; Resp 16 S; Pulse Ox 99% on 2 lpm NC; bb 03:45 BP 110 / 76; Pulse 65; Resp 13 S; Pulse Ox 100% on 2 lpm NC; bb 04:30 BP 122 / 81; Pulse 75; Resp 15 S; Pulse Ox 99% on 2 lpm NC; bb 05:15 BP 113 / 76; Pulse 67; Resp 12 S; Pulse Ox 98% on 2 lpm NC; bb 06:00 BP 115 / 74; Pulse 65; Resp 12 S; Pulse Ox 97% on 2 lpm NC; bb 01:43 Body Mass Index 19.14 (44.45 kg, 152.40 cm) MDM: 01:49 Patient medically screened. pkl 04:07 Data reviewed: vital signs, nurses notes, lab test result(s), EKG, radiologic studies, pkl plain films. 06/25 01:57 Order name: Basic Metabolic Panel; Complete Time: 03:06 pkl 06/25 01:57 Order name: BNP; Complete Time: 03:06 pkl 06/25 01:57 Order name: CBC with Diff; Complete Time: 03:06 pkl 06/25 01:57 Order name: Ckmb; Complete Time: 03:06 pkl 06/25 01:57 Order name: CPK; Complete Time: 03:06 pkl 06/25 01:57 Order name: LFT's; Complete Time: 03:06 pkl 06/25 01:57 Order name: Magnesium; Complete Time: 03:06 pkl 06/25 01:57 Order name: PT-INR; Complete Time: 03:06 pkl 06/25 01:57 Order name: Ptt, Activated; Complete Time: 03:06 pkl 06/25 01:57 Order name: Troponin (emerg Dept Use Only); Complete Time: 03:06 pkl 06/25 02:01 Order name: Blood Culture Adult (2) pkl 06/25 02:01 Order name: Lactate; Complete Time: 03:06 pkl 06/25 02:01 Order name: Procalcitonin; Complete Time: 03:06 pkl 06/25 02:01 Order name: ABG; Complete Time: 04:09 pkl 06/25 01:57 Order name: XRAY Chest (1 view) pkl 06/25 01:57 Order name: EKG; Complete Time: 01:57 pkl 06/25 01:57 Order name: Cardiac monitoring; Complete Time: 02:25 pkl 06/25 01:57 Order name: EKG - Nurse/Tech; Complete Time: 02:25 pkl 06/25 01:57 Order name: IV Saline Lock; Complete Time: 02:25 pkl 06/25 01:57 Order name: Labs collected and sent; Complete Time: 02:25 pkl 06/25 01:57 Order name: O2 Per Protocol; Complete Time: 02:25 pkl 06/25 01:57 Order name: O2 Sat Monitoring; Complete Time: 02:25 pkl 06/25 02:02 Order name: Hemoglobin A1c pkl Administered Medications: No medications were administered Disposition: 06/25/17 04:09 Hospitalization ordered by Yoseph Landa for Inpatient Admission. Preliminary diagnosis is Acute dyspnea. Left pleural effusion. Chronic renal disease. - Bed requested for Telemetry/MedSurg (Inpatient). - Status is Inpatient Admission. em - Condition is Stable. - Problem is new. - Symptoms are unchanged. UTI on Admission? No Signatures: Dispatcher [employer] Martha Chung, RN Alf Anders MD MD pkJunior Mak, DELIVERY MOTORCYCLE DRIVER DELIVERY MOTORCYCLE DRIVER em Jo Tellez RN RN bb Corrections: (The following items were deleted from the chart) 06:05 04:09 Hospitalization Ordered by Yoseph Landa MD for Inpatient Admission. Preliminary diagnosis is Acute dyspnea. Left pleural effusion. Chronic renal disease. Bed requested for Telemetry/MedSurg (Inpatient). Status is Inpatient Admission. Condition is Stable. Problem is new. Symptoms are unchanged. UTI on Admission? No. pkl 07:04 01:57 Urine Dipstick-Ancillary ordered. pkl em 07:59 06:05 06/25/2017 04:09 Hospitalization Ordered by Yoseph Landa MD for Inpatient em Admission. Preliminary diagnosis is Acute dyspnea. Left pleural effusion. Chronic renal disease. Bed requested for Telemetry/MedSurg (Inpatient). Status is Inpatient Admission. Condition is Stable. Problem is new. Symptoms are unchanged. UTI on Admission? No. kl
--- NOTE | 2017-06-25 04:09 | ER ---
Nurse's Notes [facility] Name: Vance Barrera Age: 41 yrs Sex: Male : 1975 Arrival Date: 06/25/2017 Time: 01:08 Bed 17 Private MD: Luisito Hicks Diagnosis: Acute dyspnea. Left pleural effusion. Chronic renal disease Presentation: 06/25 01:41 Presenting complaint: Patient states: he was seen in [place] ED yesterday and was told bb he had fluid on his lung and needed to come to the ED here immediately on his return pt denies difficulty breathing. Transition of care: patient was not received from another setting of care. Onset of symptoms was June 24, 2017. Initial Sepsis Screen: Does the patient meet any 2 criteria? No. Patient's initial sepsis screen is negative. Does the patient have a suspected source of infection? No. Patient's initial sepsis screen is negative. Care prior to arrival: None. 01:41 Method Of Arrival: Ambulatory bb 01:41 Acuity: DENY 2 bb Triage Assessment: :43 General: Appears in no apparent distress. slender, Behavior is calm, cooperative. Pain: bb Denies pain. Neuro: Level of Consciousness is awake, alert, obeys commands, Oriented to person, place, time, situation. Cardiovascular: Heart tones S1 S2 present Capillary refill < 3 seconds Patient's skin is warm and dry. Pulses are all present. Edema is absent. Respiratory: Respiratory effort is unlabored, Breath sounds with crackles bilaterally. Breath sounds are diminished. GI: No signs and/or symptoms were reported involving the gastrointestinal system. Derm: Skin is pink, warm \T\ dry. Musculoskeletal: Circulation, motion, and sensation intact. Historical: - Allergies: :43 No Known Allergies; bb - Home Meds: :43 Unable to obtain [Active]; bb - PMHx: :43 Diabetes - IDDM; bb - PSHx: :43 None; bb - Immunization history:: Adult Immunizations unknown. - Social history:: Smoking status: Patient/guardian denies using tobacco. Screenin:45 Abuse screen: Denies threats or abuse. Nutritional screening: No deficits noted. bb Tuberculosis screening: No symptoms or risk factors identified. Fall Risk None identified. Assessment: :45 Reassessment: No changes from previously documented assessment. see triage assessment. bb 02:59 Reassessment: critical lab results relayed by cemetery laborer on duty crea-7.35 and glucose- mg2 466 mg/dl. 03:02 Reassessment: Patient and/or family updated on plan of care and expected duration. Pain bb level reassessed. Patient is alert, oriented x 3, equal unlabored respirations, skin warm/dry/pink. RT at bedside for ABG, family at bedside. 04:18 Reassessment: Patient and/or family updated on plan of care and expected duration. Pain bb level reassessed. pt appears to be sleeping, eyes closed, resp unlabored, no signs of distress noted, IV site intact, family at bedside and instructed on need for admission. 04:24 Reassessment: Pt's sister Abril cell # [phone]. bb 06:07 Reassessment: Patient and/or family updated on plan of care and expected duration. Pain bb level reassessed. pt resting quietly appears to be sleeping, eyes closed, resp unlabored, no signs of discomfort noted, family at bedside. 06:16 Reassessment: report given to Dianne Benson LVN. bb Vital Signs: 01:43 BP 118 / 76; Pulse 79; Resp 20 S; Temp 97.9(O); Pulse Ox 88% on R/A; Weight 44.45 kg bb (R); Height 5 ft. 0 in. (152.40 cm) (R); Pain 0/10; 01:43 Pulse Ox 97% on 2 lpm NC; bb 02:23 BP 124 / 88; Pulse 74; Resp 16 S; Pulse Ox 99% on 2 lpm NC; bb 03:45 BP 110 / 76; Pulse 65; Resp 13 S; Pulse Ox 100% on 2 lpm NC; bb 04:30 BP 122 / 81; Pulse 75; Resp 15 S; Pulse Ox 99% on 2 lpm NC; bb 05:15 BP 113 / 76; Pulse 67; Resp 12 S; Pulse Ox 98% on 2 lpm NC; bb 06:00 BP 115 / 74; Pulse 65; Resp 12 S; Pulse Ox 97% on 2 lpm NC; bb 01:43 Body Mass Index 19.14 (44.45 kg, 152.40 cm) bb ED Course: 01:08 Patient arrived in ED. es 01:09 Luisito Hicks MD is Private Physician. es 01:41 Jo Tellez, RN is Primary Nurse. bb 01:42 Triage completed. bb 01:43 Arm band placed on Patient placed in an exam room, on a stretcher, on vehicle monitor technician, bb on pulse oximetry. Antipyretics given from triage as ordered by an ER provider. Family accompanied patient. 01:45 Patient has correct armband on for positive identification. Bed in low position. Call bb light in reach. Side rails up X 1. monitor tech on. Pulse ox on. NIBP on. 01:49 Alf Doran MD is Attending Physician. pkl 02:15 Initial lab(s) drawn, by ED staff, sent to lab. EKG done. First set of blood cultures bb drawn by ED staff. Inserted saline lock: 20 gauge in right antecubital area, using aseptic technique. ,using aseptic technique. by [facility] tech Blood collected. 02:28 X-ray completed. Portable x-ray completed in exam room. Patient tolerated procedure kw well. 02:31 XRAY Chest (1 view) In Process Unspecified. EDMS 02:40 Second set of blood cultures drawn by ED staff. bb 04:07 Yoseph Landa MD is Hospitalizing Provider. pkl 04:24 Patient admitted, IV remains in place. bb 06:08 No provider procedures requiring assistance completed. bb 07:03 Report given to Junior MOTT. bb Administered Medications: No medications were administered Outcome: 04:09 Decision to Hospitalize by Provider. pkl 04:20 Instructed on the need for admit. bb 06:16 Admitted to Tele accompanied by sarkis, family with patient, via stretcher, room 216, bb with chart, Report called to Dianne Benson HOME CARE ATTENDANT 06:16 Condition: unchanged 07:59 Patient left the ED. em Signatures: Dispatcher [employer] EDAlf Pierre MD MD pkl Salyer, Edna es Munoz, Edgar, LVN LVN em Jo Tellez, RN RN Terri Josue Michele, RN RN mg2
--- NOTE | 2017-06-25 07:28 | P.HP ---
Certification for Inpatient Patient admitted to: Inpatient With expected LOS: >2 Midnights Practitioner: I am a practitioner with admitting privileges, knowledge of patient current condition, hospital course, and medical plan of care. Services: Services provided to patient in accordance with Admission requirements found in Title 42 Section 412.3 of the Code of Federal Regulations Patient History Date of Service: 06/25/17 Reason for admission: pleural effusion History of Present Illness: Mr Barrera is a 41 years old male with history IDDM, HTN, ESRD on HD, who start about 1 week ago with fever. At that time he was in [facility], and was evaluated there. He was diagnosed with large left pleural effusion. After realized that, the patient decied o come back to [facility], and continue treatment here. He has had dry cough and mild SOB. Last time he did HD was 3 days ago in [place]. At arrival hei O2 sat was 88% on RA, he was not on respiratory distress , no fever, WBC count within normal limits, but procalcitonin significantly elevated. CXR shows again large left pleural effusion. Allergies NKDA Allergy (Uncoded 09/06/16 07:40) Unknown Home Medications: Amlodipine [Norvasc*] 10 mg PO DAILY 01/13/16 Atorvastatin Calcium 40 mg PO DAILY 01/13/16 Insulin NPH Human [Novolin N (Humulin N)*] 15 units SQ SEECOM 01/13/16 Carvedilol [Coreg*] 6.25 mg PO BID #60 tab 05/16/16 Doxazosin [Cardura*] 1 mg PO BID #60 tab 05/16/16 Insulin NPH Human [Novolin N (Humulin N)*] 7 units SQ BEDTIME ml 05/16/16 Sevelamer Carbonate [Renvela*] 1,600 mg PO TIDWM tablet 05/16/16 - Past Medical/Surgical History Diabetic: Yes -: IDDM -: ESRD on HD -: HTN Past Surgical History: Reviewed- Non-Contributory -: HD fistula - Family History Family History: Reviewed- Non-Contributory - Social History Smoking Status: Never smoker Alcohol use: No CD- Drugs: No Caffeine use: Yes Place of Residence: Home Review of Systems 10-point ROS is otherwise unremarkable Physical Examination - Physical Exam General: Alert, In no apparent distress HEENT: Atraumatic, PERRLA, Mucous membr. moist/pink, EOMI, Sclerae nonicteric Neck: Supple, 2+ carotid pulse no bruit, No LAD, Without JVD or thyroid abnormality Respiratory: Diminished (left side) Cardiovascular: Regular rate/rhythm, Normal S1 S2 Gastrointestinal: Normal bowel sounds, No tenderness Musculoskeletal: No tenderness Integumentary: No rashes Neurological: Normal speech, Normal strength at 5/5 x4 extr, Normal tone, Normal affect Lymphatics: No axilla or inguinal lymphadenopathy - Studies Laboratory Data (last 24 hrs) 06/25/17 02:15: PT 12.6 H, INR 1.07, APTT 26.5 06/25/17 02:15: WBC 9.6, Hgb 9.9 L, Hct 31.9 L, Plt Count 157 06/25/17 02:15: B-Natriuretic Peptide 3920 H 06/25/17 02:15: Sodium 133 L, Potassium 5.2 H, BUN 34 H, Creatinine 7.35 H*, Glucose 466 H*, Magnesium 2.2, Total Bilirubin 0.3, AST 12, ALT 8 L, Alkaline Phosphatase 100 Assessment and Plan - Problems (Diagnosis) (1) Pleural effusion Current Visit: Yes Status: Acute (2) Acute respiratory failure Current Visit: Yes Status: Acute Qualifiers: Respiratory failure complication: hypoxia Qualified Code(s): J96.01 - Acute respiratory failure with hypoxia (3) Diabetes Current Visit: No Status: Acute Qualifiers: Diabetes mellitus type: type 1 Diabetes mellitus complication status: with kidney complications Diabetes mellitus complication detail: with chronic kidney disease Chronic kidney disease stage: on chronic dialysis Qualified Code(s): E10.22 - Type 1 diabetes mellitus with diabetic chronic kidney disease ; N18.6 - End stage renal disease; Z99.2 - Dependence on renal dialysis (4) End stage renal disease Onset Date: 05/12/16 Current Visit: No Status: Acute (5) HTN (hypertension) Current Visit: No Status: Acute Qualifiers: Hypertension type: essential hypertension Qualified Code(s): I10 - Essential (primary) hypertension - Plan Mr Barrera will be admitted to the hospital due to acute respiratory failure with hypoxemia, secondary to a large left pleural effusion. He has had fever recently but not here. Will cover with IV broad spectrum antibiotics, Consult Dr Figueroa for thoracentesis. Also consult Licensed Audiologist to continue HD while is hospitalized. Will order SSI for BS control. - Advance Directives Does patient have a Living Will: No Does patient have a Durable POA for Healthcare: No - Code Status/Comfort Care Code Status Assessed: Yes Code Status: Full Code
--- NOTE | 2017-06-25 07:58 | EKG ---
Test Date: 2017-06-25 Test Time: 01:59:10 Hospitality Team Member: GRISELDA MEASUREMENT RESULTS: Intervals: Rate: 76 MT: 194 QRSD: 88 QT: 400 QTc: 450 [place]: P: 62 MT: 194 QRS: 54 T: 195 INTERPRETIVE STATEMENTS: Normal sinus rhythm Possible Left atrial enlargement T wave abnormality, consider inferolateral ischemia Abnormal ECG Compared to ECG 11/27/2015 09:48:33 Possible ischemia now present Left ventricular hypertrophy no longer present T-wave abnormality still present Electronically Signed On 06-25-17 07:57:44 CDT by Jean Pierre Joy
[2017-06-25] MEDS ORDERED: ACETAMINOPHEN 500 MG TAB PO PRN (08:17)
[2017-06-25] MEDS ORDERED: ONDANSETRON 4 MG/2 ML VIAL IV PRN (08:17)
[2017-06-25 08:54] VITALS: BMI 19.1
[2017-06-25] MEDS ORDERED: VANCOMYCIN 1 GM in NA CHLORIDE 0.9% 500 ML IVPB SCH (09:00)
[2017-06-25] MEDS ORDERED: VANCOMYCIN 500 MG in NA CHLORIDE 0.9% 100 ML IVPB SCH (09:00)
--- NOTE | 2017-06-25 09:01 | P.CNS ---
Date of Consult: 06/25/17 Reason for Consult: Pleural effusion Chief Complaint: pleural effusion History of Present Illness: Patient is 41 years of age Bhutanese-speaking only history obtained through an aircraft restorer currently was in [place] was having some fever went to the hospital was diagnosed with left-sided pleural effusion patient decided to come here to the hospital denies any chest pain or prior history of cardiopulmonary problems sees has end-stage renal dizzy no history of any malignancy chest x-ray shows a massive effusion on Allergies No Known Allergies Allergy (Unverified 06/25/17 08:25) Home Medications: Amlodipine [Norvasc*] 10 mg PO DAILY 01/13/16 Atorvastatin Calcium 40 mg PO DAILY 01/13/16 Insulin NPH Human [Novolin N (Humulin N)*] 15 units SQ SEECOM 01/13/16 Carvedilol [Coreg*] 6.25 mg PO BID #60 tab 05/16/16 Doxazosin [Cardura*] 1 mg PO BID #60 tab 05/16/16 Insulin NPH Human [Novolin N (Humulin N)*] 7 units SQ BEDTIME ml 05/16/16 Sevelamer Carbonate [Renvela*] 1,600 mg PO TIDWM tablet 05/16/16 - Past Medical/Surgical History Diabetic: Yes -: IDDM -: ESRD on HD -: HTN -: HD fistula - Social History Smoking Status: Never smoker Alcohol use: No CD- Drugs: No Caffeine use: Yes Place of Residence: Home Review of Systems General: Weakness Respiratory: Shortness of Breath Physical Examination Temp Pulse Resp BP Pulse Ox 97.9 F 65 12 115/74 06/25/17 01:43 06/25/17 06:00 06/25/17 06:00 06/25/17 06:00 General: Alert, In no apparent distress HEENT: Atraumatic Neck: Supple Respiratory: Diminished (Mathew and a diminished air entry on the left side dull percussion note) Gastrointestinal: Normal bowel sounds, Soft and benign Musculoskeletal: No clubbing, No swelling Integumentary: No rashes, No breakdown Laboratory Data (last 24 hrs) 06/25/17 02:15: PT 12.6 H, INR 1.07, APTT 26.5 06/25/17 02:15: WBC 9.6, Hgb 9.9 L, Hct 31.9 L, Plt Count 157 05/21/18 02:15: B-Natriuretic Peptide 3920 H 06/25/17 02:15: Sodium 133 L, Potassium 5.2 H, BUN 34 H, Creatinine 7.35 H*, Glucose 466 H*, Magnesium 2.2, Total Bilirubin 0.3, AST 12, ALT 8 L, Alkaline Phosphatase 100 - Problems (1) Pleural effusion Current Visit: Yes Status: Acute Plan: Patient is 41 years of age with end-stage renal disease admitted with the slight fever massive pleural effusion his hypoxic hypercapnic former tobacco abuser quit 2 years ago patient is hypoxic hypercarbic the will need a chest tube bronchodilators there is a possibility of an infection agree with vancomycin and Zosyn
[2017-06-25] MEDS: INSULIN -REGULAR HUMAN 50 UNIT/0.5 ML ML SQ SCH ×4 (09:02→20:54)
[2017-06-25] MEDS: ALBUTEROL 2.5 MG/3 ML NEB SOL IH SCH ×6 (09:20→19:04)
[2017-06-25] MEDS: PIPER/TAZO/NS 2.25gm 2.25 GM/50 ML BAG IVPB SCH ×2 (10:10→17:35)
--- NOTE | 2017-06-25 11:32 | P.OP ---
Preoperative diagnosis: Large LEFT Pleural Effusion Postoperative diagnosis: Large LEFT Pleural Effusion Primary procedure: Placement of LEFT 8 Fijian Thoracostomy Tube Anesthesia: Local 1% lidocaine Estimated blood loss: <2cc Specimen: redish pleural fluid Findings: reddish pleural fluid Complications: None Drain(s): Other (8 Fijian Pigtail Chest Tube) Transferred to: Other (Floor Room) Condition: Good
[2017-06-25] MEDS: SEVELAMER CARBONATE 800 MG TABLET PO SCH ×2 (11:59→17:35)
--- NOTE | 2017-06-25 12:09 | RAD REPORT ---
EXAM DESCRIPTION: RAD - Chest Single View - 06/25/2017 11:57 am CLINICAL HISTORY: Pleural effusion COMPARISON: 06/25/2017 FINDINGS: Portable technique limits examination quality. Pigtail left-sided chest tube has been placed. No pneumothorax seen. Opacification of the left lung a ppears similar to the prior study earlier same date.
[2017-06-25] MEDS ORDERED: TRAMADOL HCL 50 MG TAB PO PRN (12:23)
--- NOTE | 2017-06-25 12:40 | RAD REPORT ---
EXAM DESCRIPTION: CT - Thorax Wo Con - 06/25/2017 9:44 am CLINICAL HISTORY: Pleural effusion COMPARISON: June 25 chest film TECHNIQUE: Axial 5 mm thick images of the chest were obtained without IV contrast. All CT scans are performed using dose optimization technique as appropriate and may include automated exposure control or mA/KV adjustment according to patient size. FINDINGS: No focal infiltrate or suspicious mass in the right lung field. There is partial atelectas is of the posterior margin right lower lobe with a small to moderate right pleural effusion. There is a very large left pleural effusion filling most of the left hemithorax. There is very little aerated lung parenchyma. There is essentially complete atelectasis of the left lower lobe. Much of the left upper lobe is atelectatic. There is a nodularity to the lung parenchyma of the left upper lobe. There is a thickened rind surrounding the pleural effusion with numerous thickened septations within the p leural fluid. No pneumothorax. No abnormal mediastinal or hilar masses or lymphadenopathy seen. No gross aortic or pulmonary artery finding suspected. Assessment is limited in the absence of IV contrast. No chest wall mass or abnormal axillary lymphadenopathy. IMPRESSION: Large left pleural effusion with a thickened pleural rind and numerous thickened septati ons throughout the pleural fluid. Left-sided pleural fluid has the appearance of a multiloculated ef fusion. Near complete left lower lobe atelectasis. There is partial atelectasis of the left upper lobe with n odular parenchyma. On noncontrast imaging, it cannot be determined if this left upper lobe nodular parenchyma is atelect asis or possibly mass. Small to moderate right pleural effusion without loculation. There is partial right lower lobe atelec tasis.
[2017-06-25 12:44] LABS: Body Fluid WBC 869 /mm^3
[2017-06-25 13:28] LABS: Appearance TURBID (CLEAR); Body Fluid Source PLEURAL; Color of fluid Red (COLORLESS)
[2017-06-25] MEDS ORDERED: ALBUTEROL 2.5 MG/3 ML NEB SOL IH SCH ×2 (14:00)
[2017-06-25 15:19] LABS: A1c Component 0.54 mg/dL
[2017-06-25 17:54] LABS: Potassium 4.5 mEq/L (3.6-5.0)
[2017-06-25] MEDS: DOXAZOSIN 2 MG TAB PO SCH (20:56)
[2017-06-25] MEDS: CARVEDILOL 6.25 MG TAB PO SCH (20:56)
[2017-06-25] MEDS ORDERED: ATORVASTATIN 40 MG TAB PO SCH (21:00)
--- NOTE | 2017-06-25 22:13 | OP ---
Date of Procedure: 06/25/2017 Surgeon: Hung Jenkins MD, Preoperative Diagnosis: Large left pleural effusion. Postoperative Diagnosis: Large left pleural effusion. Procedure Performed: Placement of left 8-Anguillan thoracostomy tube. Anesthesia: Local 1% lidocaine. Estimated Blood Loss: Less than 2 cc. Specimen: Reddish pleural fluid. Findings: Reddish pleural fluid. Complications: None. Drains: An 8-Anguillan pigtail chest tube. The patient remained on floor room in good condition throughout. Procedure In Detail: After informed consent was obtained. The patient was prepped and draped in usu al sterile fashion after adequate anesthesia was achieved, approximately 6th intercostal space was an esthetized with 1% lidocaine. I then made a small incision using an 11 blade down through the subcut aneous tissues. I then used a chest tube pigtail insertion device to place the 8-Anguillan pigtail ches t tube in over the rib with easy passage. I then advanced the pigtail catheter and removed the intro ducer. At this point, I withdrew using the piston syringe and found reddish colored fluid. I remove d almost 500 cc of reddish colored fluid and sent some for analysis. I then cleansed the area once a gain with sterile ChloraPrep and placed a sterile dressing over top and hooked the chest tube to a Pl eur-evac system. A stat chest x-ray will be ordered. The patient tolerated the procedure well witho ut evidence of complication, remained in the room throughout in good condition. All counts were correct at the end of the case. NANCY/LON Voice ID: [id number] Report ID: [id number]
[2017-06-26] MEDS: PIPER/TAZO/NS 2.25gm 2.25 GM/50 ML BAG IVPB SCH ×2 (00:04→09:06)
[2017-06-26] MEDS: ALBUTEROL 2.5 MG/3 ML NEB SOL IH SCH ×6 (01:16→14:00)
--- NOTE | 2017-06-26 02:23 | CON ---
Date of Consultation: 06/25/2017 Chief Complaint: End-stage renal disease, hyperkalemia, fluid overload. History Of Present Illness: The patient has multiple medical problems including end-stage renal disease. He has been dialyzed 3 times per week on Sunday, Sunday, and Sunday. He presented to the hospital and was found to have severe fluid overload, peripheral edema, and bilateral pleural effusion. He underwent a thoracentesis. The patient was found to have hyperkalemia. Potassium was 5.2. He has been treated with IV medication for blood pressure control and he received insulin for uncontrolled diabetes. Blood glucose was up to 466. The patient was started on IV antibiotics because of possible pneumonia and workup was initiated to rule out empyema. He came to the hospital complaining of some chest discomfort, shortness of breath, and nonproductive cough. He had high-grade fever prior to this admission. He was found to have hypoxemia, SpO2 was 88% on room air. He was complaining of some shortness of breath but denies syncope and denies palpitation. The patient has history of insulin-dependent diabetes mellitus, diabetic kidney disease, hypertensive kidney disease. He has been on dialysis for several months. Review of Systems: Constitutional: High-grade fever. Eyes: Denies new vision changes. Ears, Nose, Mouth, and Throat: Denies sore throat or earache. Respiratory: Shortness of breath and nonproductive cough. GI: Denies nausea or vomiting. : Denies dysuria or hematuria. Musculoskeletal: Denies muscle aches or joint swelling. All other system reviewed and all are negative. Past Medical History: Insulin-dependent diabetes mellitus, end-stage renal disease on dialysis, hypertension, anemia in CKD, renal osteodystrophy, hyperparathyroidism, hyperlipidemia. Family History: No kidney disease in family. Social History: Denies tobacco, alcohol, or illicit drugs. Physical Examination: General: Alert, follows commands. Eyes: Anicteric sclerae. EOMI. Ears, Nose, Mouth and Throat: Oral mucosa moist. No pallor. Neck: Supple. No JVD. No bruits. Lungs: Diminished breath sounds at bases. Few rhonchi. Heart: S1, S2. No pericardial friction rub. Abdomen: Soft, benign. No rebound Extremities: No cellulitis, no clubbing. Some edema present in both ankles. Neurologic: No tremor. Cranial nerves intact. Psychiatric: Alert and oriented x3. Normal affect. Laboratory Data: Sodium 133, potassium 5.2. BUN 34, creatinine 7.35, glucose 466, magnesium 2.2. Bilirubin total is 0.3. AST 12, ALT 8. ALP 100. Impression And Plan: 1. Fever, pneumonia, pleural effusion. The patient is undergoing workup to rule out empyema. Continue broad-spectrum antibiotics with renally adjusted dose. 2. Fluid overload. Hyperkalemia. The patient is scheduled to have urgent dialysis for metabolic clearance and ultrafiltration. 3. Monitor potassium level. Predialysis potassium was 5.2. The patient does not have metabolic acidosis. Monitor electrolytes after dialysis. hyperkalemia related to severe hyperglycemia and renal failure, continue dialysis and Insulin treatment, renal diet and ADA diet. 4. Severe hyperglycemia, uncontrolled diabetes. Continue treatment with insulin. 5. Renal osteodystrophy. Continue renal diet and binders. 6. Anemia in chronic kidney disease. Monitor hemoglobin level. Adjust RADHIKA as needed. VIJAY/LON Voice ID: [id number] Report ID: [id number] NICHOLAS
[2017-06-26 04:55] LABS: Absolute Lymphocytes (CBC) 0.7 K/uL (0.7-4.9); Absolute Monocytes 0.6 K/uL (0.1-1.3); Basophils % 0.6 % (0-1.3); Eosinophils % 2.2 % (0-4.4); Lymphocytes % 7.6 % (15.3-44.8); MCV 83.3 fL (80-100); MPV 11.9 fL (7.6-11.3); Monocytes % 5.8 % (3.3-12.3)
[2017-06-26 05:09] LABS: Potassium 5.6 mEq/L (3.6-5.0)
[2017-06-26 08:22] VITALS: O2SAT 91
[2017-06-26] MEDS ORDERED: AMLODIPINE 10 MG TAB PO SCH (09:00)
[2017-06-26] MEDS: SEVELAMER CARBONATE 800 MG TABLET PO SCH ×2 (09:05→11:41)
[2017-06-26] MEDS: DOXAZOSIN 2 MG TAB PO SCH (09:05)
[2017-06-26] MEDS: CARVEDILOL 6.25 MG TAB PO SCH (09:06)
[2017-06-26] MEDS: INSULIN -REGULAR HUMAN 50 UNIT/0.5 ML ML SQ SCH ×2 (09:06→11:41)
--- NOTE | 2017-06-26 09:16 | P.PN ---
Subjective Date of Service: 06/26/17 Chief Complaint: pleural effusion Subjective: Improving (less shortness of breath, but tender at LEFT chest tube insertion site) Physical Examination - Vital Signs Temperature: 97.9 F Blood Pressure: 127/74 Pulse: 81 Respirations: 18 Pulse Ox (%): 94 - Physical Exam General: Alert, In no apparent distress Respiratory: Other (improvement of LEFT chest dullness, but remains present. ) Assessment And Plan - Current Problems (Diagnosis) (1) Pleural effusion Onset Date: 06/25/17 Current Visit: Yes Status: Acute Plan: - Chest tube drainage for symptomatic improvement - will likely need thoracic consultation for multiloculated collection
--- NOTE | 2017-06-26 12:29 | CON ---
Reason For Consultation: Left pleural effusion and shortness of breath. Brief History Of Present Illness: The patient is a 41-year-old male with a history of diabetes, hype rtension, end-stage renal disease, on hemodialysis, known to me from previous admission, who began ap proximately 1 week ago with complaints of fever while he was in [facility]. He was evaluated there and was told he had an infection in his body somewhere and ultimately he decided to come back t o [facility] to continue treatment. He has had a dry cough and mild shortness of breath. His las t dialysis was 3 days prior to his admission on 06/25/2017 and it was in [place]. His saturations wer e approximately 88% on room air, was showing no signs of distress. No fever at that time. Workup di d include he had a large left pleural effusion confirmed on chest x-ray and as such I was consulted f or a thoracostomy tube drainage. Past Medical History: Diabetes, end-stage renal disease, on hemodialysis, hypertension. Past Surgical History: He has had a fistula for hemodialysis on the left forearm. Social History: He denies smoking, alcohol, or recreational drug use. Family History: Noncontributory. Review of Systems: A 10-point review of systems other than HPI, denies. Medications: At home include Norvasc, atorvastatin, Humulin, Coreg, Cardura, and Renvela. Allergies: NO KNOWN DRUG ALLERGIES. Physical Examination: Vital Signs: At the time of my examination, his BMI is 19.1. His vital signs were blood pressure wa s 132/79, pulse is 93, respiratory rate 16, temperature 98.2. He was on 2 L nasal cannula at the charbel e of my examination. General: He is awake, alert, oriented. Psychiatric: He is appropriate, conversive. HEENT: He is thin and frail, but has otherwise normocephalic. His sclerae are anicteric. His mucou s membranes are moist. Neck: Supple. No JVD. Chest: Normal expansion and excursion; however, left-sided chest has severely diminished breath soun ds globally. He is not using any accessory muscles of respiration. There is no retraction. Abdomen: Soft. Extremities: He has a left forearm AV fistula. Skin: Warm and dry otherwise. Laboratory Data: He had a laboratory exam, which reveals a white blood cell count of 9.6, hemoglobin is 9.9 over hematocrit of 31.9, platelet count is 157. His PT 12.6, INR 1.07, PTT is 26.5. His alexander antonio showed a sodium of 136, potassium 4.5, chloride 95, carbon dioxide 29, BUN 41, creatinine 8.1, glucose is 119, calcium is 7.9. He had imaging, which included a chest x-ray, which was officially read as he had a large left pleural effusion. Assessment And Plan: This is a 41-year-old male, who presents with a large left pleural effusion. 1.Continue medical management. 2.I will place a left-sided small pigtail thoracostomy tube for fluid analysis and for symptomatic i mprovement. We will obtain a chest CT to better define this fluid collection and see if there is loc ulations, which may require Thoracic Surgery consultation. Thank you for this interesting consult. I will follow along with you. ALLAN Voice ID: [id number] Report ID: [id number]
[2017-06-26] MEDS ORDERED: EPOETIN ALFA 10,000 UNIT/ML VIAL IV SCH (12:30)
[2017-06-26] MEDS ORDERED: LIDOCAINE 1% MPF 5 ML VIAL IM ONE (13:16)
--- NOTE | 2017-06-26 13:16 | PN ---
Date of Progress Note: 06/26/2017 Subjective: The patient was admitted with clear effusion, healthcare-associated pneumonia, status po st chest tube placement. Physical Examination: Vital Signs: Blood pressure 127/74, pulse of 81, afebrile. Chest: Clear to auscultation. Decreased air entry on the left base. Heart: S1, S2. Regular. Abdomen: Soft, nontender. Extremities: No edema. Laboratory Data: H and H 9.7/30. Sodium 136, potassium 5.6, bicarb 26, BUN 44, creatinine 8.7, calc ium 7.8. Medications: Current medications the patient on include: 1.Zosyn. 2.Vancomycin. 3.Norvasc 10. 4.Carvedilol 6.25. 5.Cardura 1 mg b.i.d. 6.Tylenol. 7.Zofran. 8.Tramadol. Assessment And Plan: 1.End-stage renal disease, over volume. The patient refused dialysis yesterday, but agreed today. We will dialyze him. 2.Hypertension, controlled, optimal. Continue current medications. 3.Hyperkalemia. The patient is going to be dialyzed on low potassium bath. 4.Anemia. I am going to go ahead and resume Epogen on the patient. 5.Pleural effusion, possible pneumonia. Continue current antibiotic. Dose appropriate. JIGNA Voice ID: [id number] Report ID: [id number]
[2017-06-26 13:33] VITALS: BP 133/63; TEMP 98.8
[2017-06-26] MEDS ORDERED: LIDOCAINE 1% MPF 2 ML AMPULE IM ONE (14:00)
[2017-06-26] MEDS ORDERED: GLUCAGON 1 MG/VIAL IM PRN (15:07)
[2017-06-26] MEDS ORDERED: D50W 25 GM/50 ML SYRINGE IV PRN (15:07)
--- NOTE | 2017-06-26 15:16 | P.DS ---
Admission Date: 06/25/17 Discharge Date: 06/26/17 Reason for Admission: pleural effusion Consultations: Surgery Pulmonology Procedures: Chest Tube placement - Problems (1) Acute respiratory failure Onset Date: 06/25/17 Current Visit: Yes Status: Acute Qualifiers: Respiratory failure complication: hypoxia Qualified Code(s): J96.01 - Acute respiratory failure with hypoxia (2) Pleural effusion Onset Date: 06/25/17 Current Visit: Yes Status: Acute (3) Diabetes Onset Date: 06/25/17 Current Visit: Yes Status: Acute Qualifiers: Diabetes mellitus type: type 1 Diabetes mellitus complication status: with kidney complications Diabetes mellitus complication detail: with chronic kidney disease Chronic kidney disease stage: on chronic dialysis Qualified Code(s): E10.22 - Type 1 diabetes mellitus with diabetic chronic kidney disease ; N18.6 - End stage renal disease; Z99.2 - Dependence on renal dialysis (4) HTN (hypertension) Onset Date: 06/25/17 Current Visit: Yes Status: Acute Qualifiers: Hypertension type: essential hypertension Qualified Code(s): I10 - Essential (primary) hypertension (5) End stage renal disease Onset Date: 05/12/16 Current Visit: No Status: Acute Brief History of Present Illness: Mr Barrera is a 41 years old male with history IDDM, HTN, ESRD on HD, who start about 1 week ago with fever. At that time he was in [facility], and was evaluated there. He was diagnosed with large left pleural effusion. After realized that, the patient decied o come back to [facility], and continue treatment here. He has had dry cough and mild SOB. Last time he did HD was 3 days ago in [place]. At arrival hei O2 sat was 88% on RA, he was not on respiratory distress , no fever, WBC count within normal limits, but procalcitonin significantly elevated. CXR shows again large left pleural effusion. Hospital Course: Overall during the hospital stay patient remained stable The patient was initially admitted to the hospital for acute respiratory failure most likely secondary to volume overload and was found to have large left-sided pleural effusion that was multiloculated. General surgery was consulted and pulmonology was consulted. Patient had a chest tube pigtail catheter placement in the left side of the chest. Patient train about 300 cc of fluid 0 that was serous in windows in about [address] was consistent with multiloculated pleural effusion that and the repeat x-ray was she consistent with minimal improvement. At that time the recommendation was made for patient to get a vaps procedure done by cardiothoracic surgeon. [facility] was consulted Dr. irvin woodard at [facility] accepted the patient and patient was transferred to [facility] under stable condition. The patient also has end-stage renal disease for which patient remained on hemodialysis here in the hospital. Initially on day 1 patient did refuse hemodialysis however it is today patient was dialyzed before transferring to [facility]. Vital Signs/Physical Exam: Temp Pulse Resp BP Pulse Ox 98.8 F 75 16 133/63 96 06/26/17 12:00 06/26/17 12:00 06/26/17 12:00 06/26/17 12:00 06/26/17 12:00 General: Alert, In no apparent distress, Oriented x3, Cachectic, Other (Thin ) HEENT: Atraumatic Neck: Supple, JVD not distended Respiratory: Normal air movement, Other (Left side with Decreased breath sounds) Cardiovascular: Regular rate/rhythm, Normal S1 S2 Gastrointestinal: Normal bowel sounds, No tenderness Musculoskeletal: No tenderness Integumentary: No rashes Neurological: Normal speech, Normal tone, Normal affect Lymphatics: No axilla or inguinal lymphadenopathy Laboratory Data at Discharge: WBC 9.5 K/uL (4.3-10.9) 06/26/17 04:16 Hgb 9.7 g/dL (13.6-17.9) L 06/26/17 04:16 Hct 30.0 % (39.6-49.0) L 06/26/17 04:16 Plt Count 156 K/uL (152-406) 06/26/17 04:16 PT 12.6 SECONDS (9.5-12.5) H 06/25/17 02:15 INR 1.07 06/25/17 02:15 APTT 26.5 SECONDS (24.3-36.9) 06/25/17 02:15 Sodium 136 mEq/L (135-145) 06/26/17 04:16 Potassium 5.6 mEq/L (3.6-5.0) H* 06/26/17 04:16 BUN 44 mg/dL (6-20) H 06/26/17 04:16 Creatinine 8.74 mg/dL (0.61-1.24) H* 06/26/17 04:16 Glucose 190 mg/dL (65-120) H 06/26/17 04:16 Magnesium 2.2 mg/dL (1.8-2.5) 06/25/17 02:15 Total Bilirubin 0.3 mg/dL (0.3-1.2) 06/25/17 02:15 AST 12 IU/L (10-42) 06/25/17 02:15 ALT 8 IU/L (10-60) L 06/25/17 02:15 Alkaline Phosphatase 100 IU/L (42-121) 06/25/17 02:15 B-Natriuretic Peptide 3920 pg/ml (<=100) H 06/25/17 02:15 Home Medications: Amlodipine [Norvasc*] 10 mg PO DAILY 01/13/16 Atorvastatin Calcium 40 mg PO DAILY 01/13/16 Insulin NPH Human [Novolin N (Humulin N)*] 15 units SQ SEECOM 01/13/16 Carvedilol [Coreg*] 6.25 mg PO BID #60 tab 05/16/16 Doxazosin [Cardura*] 1 mg PO BID #60 tab 05/16/16 Insulin NPH Human [Novolin N (Humulin N)*] 7 units SQ BEDTIME ml 05/16/16 Sevelamer Carbonate [Renvela*] 1,600 mg PO TIDWM tablet 05/16/16
[2017-06-27 16:57] LABS: HIV 1/2 Antibody Diff Not indicated.; HIV AG/AB 4TH GEN Non-reactive (Non-reactive)
[2017-06-28 02:40] LABS: HBsAG Nonreactive (Nonreactive)
--- NOTE | 2017-06-30 11:13 | P.PN ---
Subjective Date of Service: 06/26/17 Chief Complaint: Loculated pleural effusion Subjective: Improving (Patient is improving no new complaints denies any fever or chills) Review of Systems Unremarkable Physical Examination - Vital Signs Temperature: 98.8 F Blood Pressure: 133/63 Pulse: 75 Respirations: 16 Pulse Ox (%): 96 - Physical Exam General: Alert, Oriented x3 Neck: Supple Respiratory: Diminished (Diminished on the left side) Cardiovascular: No edema - Studies Microbiology Data (last 24 hrs): 06/25/17 02:40 Blood - Blood Aerobic Blood Culture - Final No growth in 5 days. 06/25/17 02:40 Blood - Blood Anaerobic Blood Culture - Final No growth in 5 days. 06/25/17 02:15 Blood - Blood Aerobic Blood Culture - Final No growth in 5 days. 06/25/17 02:15 Blood - Blood Anaerobic Blood Culture - Final No growth in 5 days. Assessment & Plan - Problems (Diagnosis) (1) Pleural effusion Onset Date: 06/25/17 Status: Acute Plan: Patient had a chest tube inserted CT scan shows multi loculated pleural effusion cytology was negative for malignant cells no AFB or fungus patient is to be transferred or urge to cardiothoracic surgery for decortication was no evidence of an infection continue with antibiotics. Discuss with Dr. Ewing patient is stable for transfer. He was ex accepted by Cardiothoracic Service oxygenation stable vital signs all stable
--- NOTE | 2017-07-06 09:04 | RAD REPORT ---
EXAM DESCRIPTION: RAD - Chest Single View - 06/25/2017 2:30 am CLINICAL HISTORY: Dyspnea COMPARISON: May 2016 TECHNIQUE: AP portable chest image was obtained 0210 hours . FINDINGS: Due to technical factors, no images or available at the time of the examination. Image was resubmitted for interpretation. The right lung field is clear. Interstitial markings are believed to be at baseline. No right-sided p neumothorax or pleural effusion. Trachea is midline. A large pleural effusion is present in the left hemithorax most prominently in the left apex and left base. Distribution would support a loculated pl eural fluid collection. There is a minimal amount of aerated lung in the mid field. Heart size is upp er normal. Left heart border is mostly obscured. Pulmonary vasculature within normal limits. No pneum othorax. No gross bony abnormality seen. No acute aortic findings suspected. IMPRESSION: 1. Large, probably loculated pleural effusion filling most of the left hemithorax. 2. Trachea is midline. No right-sided pleural or parenchymal abnormality.
== END 2017-06-26 18:43 | disposition short-term general hospital (02) | DRG 186 ==
LOC: ER 01:04 → ERHOLD 04:12 → 2ND 06:19
PROVIDERS: ADMIT Internal Medicine; ATTEND Internal Medicine
PROC: 0W9B30Z Drainage of Left Pleural Cavity with Drainage Device, Percutaneous Approach (ICD-10-PCS; principal; 2017-06-25)
PROC: 5A1D70Z Performance of Urinary Filtration, Intermittent, Less than 6 Hours Per Day (ICD-10-PCS; 2017-06-26)
DX: J90 Pleural effusion, not elsewhere classified (principal); N18.6 End stage renal disease; J96.01 Acute respiratory failure with hypoxia; I12.0 Hypertensive chronic kidney disease with stage 5 chronic kidney disease or end stage renal disease; E11.22 Type 2 diabetes mellitus with diabetic chronic kidney disease; E87.5 Hyperkalemia; D63.1 Anemia in chronic kidney disease
CPT/HCPCS: 36415; 71045; 71250; 80048; 80076; 82550; 82553; 82805; 82962; 83036; 83605; 83735; 83880; 84145; 84484; 85025; 85610; 85730; 86704; 86706; 86803; 87040; 87070; 87102; 87340; 87389; 88108; 88305; 88312; 89050; 90935; 93005; 94640; 99285; J2001; J2405

== ENCOUNTER 2017-08-06 16:39 | Inpatient (IN) | payer OTHER ==
--- OUTSIDE RECORDS SUMMARY | 2017-08-06 16:42 | XMS REPORT | Clinical Summary ---
:1975 Author Organization [facility] Address [address] [place] [address] Phone Care Team Providers Name Role Phone Unavailable Primary Care Provider Unavailable Allergies No Known Allergies Current Medications Prescription Sig. Disp. Refills Start Date End Date Status INSULIN NPH Inject 7 Units Active HUM/REG INSULIN subcutaneously 2 HM (NOVOLIN 70/30 (two) times daily SUBQ) PATIENT TAKES 7 UNITS IN AM AND 5 UNITS IN PM. amLODIPine Take 10 mg by mouth Active (NORVASC) 10 MG daily. tablet doxazosin Take 2 mg by mouth Active (CARDURA) 2 MG 2 (two) times daily tablet . carvedilol Take 6.25 mg by Active (COREG) 6.25 MG mouth 2 (two) times tablet daily with breakfast and dinner. calcium acetate Take 667 mg by Active (PHOSLO) 667 mg mouth 3 (three) capsule times daily with meals. atorvastatin Take 40 mg by mouth Active (LIPITOR) 80 MG daily. tablet amLODIPine Take 1 tablet (10 30 tablet 11 07/16/2017 07/17/19 Active (NORVASC) 10 MG mg total) by mouth 19 tablet daily. carvedilol Take 1 tablet (6.25 60 tablet 11 07/15/2017 07/16/19 Active (COREG) 6.25 MG mg total) by mouth 19 tablet 2 (two) times daily with breakfast and dinner. mirtazapine Take 1 tablet (7.5 30 tablet 0 07/15/2017 08/15/19 Active (REMERON) 7.5 MG mg total) by mouth 18 tablet nightly for 30 days. atorvastatin Take 40 mg by mouth 01/19/20 Discontinued (LIPITOR) 40 MG daily. 18 tablet sevelamer Take 800 mg by 02/23/19 Discontinued (RENVELA) 800 mg mouth 3 (three) 18 tablet times daily with meals. pravastatin Take 40 mg by mouth 06/27/19 Discontinued (PRAVACHOL) 40 MG daily. 18 tablet traMADol (ULTRAM) Take 1 tablet (50 30 tablet 0 07/15/2017 07/26/19 50 mg tablet mg total) by mouth 18 every 6 (six) hours as needed for up to 10 days. Max Daily Amount: 200 mg lactulose Take 30 mLs (20 g 150 mL 0 07/15/2017 07/21/19 (CHRONULAC) 20 total) by mouth 18 gram/30 mL nightly for 5 days. solution Active Problems Problem Noted Date Acute respiratory insufficiency 06/30/2017 Pleural effusion 06/26/2017 ILD (interstitial lung disease) (FORM[facility]LY [facility]) 02/23/2017 ESRD (end stage renal disease) on dialysis ([facility]) 06/30/2016 ESRD (end stage renal disease) ([facility]) 05/08/2016 ESRD on hemodialysis ([facility]) Encounters Date Type Specialty Care Team Description 07/05/2017 Orders Only General Internal Medicine 06/30/2017 Procedure Pass 06/30/2017 Surgery Guillermo Snow MD 06/29/2017 Anesthesia Event Austin Metcalf MD 06/26/2017 - Hospital Encounter Cardiology Hiro, ESRD (end stage 07/15/2017 MD Lashae renal disease) on Wilfred Wray dialysis ([facility]);ILD MD Jean Pierre (interstitial lung Gadicherla, Laura disease) MD Lance ([facility]);Pleural Shiekh Sroujieh, effusion;Empyema Rylee Ordoñez MD lung Guillermo Snow ([facility]);Sascha Eubanks MD 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 ([facility]);Chronic diastolic heart failure ([facility]);Acute respiratory insufficiency;Curre nt moderate episode of major depressive disorder without prior episode ([facility]) 05/02/2017 Telephone Transplant Rigo Callejas RN Follow-up 03/28/2017 Telephone Transplant Rigo Callejas RN Follow-up 02/23/2017 Hospital Encounter Lee Rivera MD ESRD (end stage renal disease) (HCC) 02/23/2017 Orders Only Transplant Lee Rivera MD 02/23/2017 Procedure Pass 02/23/2017 Surgery Lee Rivera MD R & L CATH / CORONARY ANGIOS / PCI 02/14/2017 Telephone Transplant Rigo Callejas RN Follow-up 02/13/2017 Telephone Transplant Diane Murillo Appointment 01/30/2017 Telephone Transplant Rigo Callejas RN Follow-up 01/30/2017 Abstract Transplant Rigo Callejas RN 01/12/2017 Orders Only Transplant Lee Rivera MD 01/12/2017 Procedure Pass 01/11/2017 Hospital Encounter Cardiology Lee Rivera MD End stage renal disease (HCC);ASD (atrial septal defect) 01/10/2017 Outside Orders Central Lee Rivera MD End stage renal Scheduling disease (HCC) (Primary Dx);ASD (atrial septal defect) 12/05/2016 Telephone Transplant Rigo Callejas RN Follow-up 11/22/2016 Committee Review Transplant Rigo Callejas RN 11/21/2016 Lab Requisition Lab Gaetano Tejeda MD 11/17/2016 Orders Only Transplant Gaetano Tejeda Pre-transplant Hepatology MD Thomas evaluation for chronic kidney disease 11/15/2016 Documentation Transplant Rigo Callejas RN 11/13/2016 Committee Review Transplant Diane Murillo 10/31/2016 Outside Orders Lab Kevin Carbajal 10/11/2016 Evaluation Transplant Gaetano Tejeda Pre-transplant MD Thomas evaluation for VadimAdriana ng MD chronic kidney disease (Primary Dx) 10/11/2016 Evaluation Transplant Gaetano Tejeda MD 10/11/2016 Hospital Encounter Radiology Gaetano Tejeda ESRD (end stage MD Thomas renal disease) (HCC);Pre-transplan t evaluation for chronic kidney disease 10/11/2016 Hospital Encounter Cardiology Gaetano Tejeda Pre-transplant MD Thomas evaluation for chronic kidney disease 10/11/2016 Hospital Encounter Radiology Gaetano Tejeda ESRD (end stage MD Thomas renal disease) (HCC) 10/11/2016 Hospital Encounter Cardiology Gaetano Tejeda ESRD (end stage B., MD renal disease) (HCC) 10/11/2016 Social Work Transplant Shiraz Kenny, BLUE 10/11/2016 Orders Only Transplant Rigo Callejas RN ESRD (end stage renal disease) ([facility]) (Primary Dx) 08/16/2016 Hospital Encounter Radiology Gaetano Tejeda ESRD (end stage B., MD renal disease) (HCC) 08/16/2016 Hospital Encounter Radiology Gaetano Tejeda ESRD (end stage B., MD renal disease) (HCC) 08/16/2016 Hospital Encounter Gaetano Tejeda ESRD (end stage B., MD renal disease) (HCC) 08/16/2016 Orders Only Transplant Gaetano Tejeda ESRD (end stage Hepatology B., MD renal disease) ([facility]) 08/16/2016 Office Visit Transplant Gaetano Tejeda MD Labrador, Florencia P, RN 08/16/2016 Committee Review Transplant Diane Murillo 08/11/2016 Orders Only Transplant Alexsandra Starr Pre-transplant Georgi RN evaluation for chronic kidney disease (Primary Dx) after 08/05/2016 Social History Tobacco Use Types Packs/Day Years Used Date Former Smoker 15 Quit: 09/24/2015 Smokeless Tobacco: Never Used Alcohol Use Drinks/Week oz/Week Comments No Sex Assigned at Date Recorded Not on file Last Filed Vital Signs Vital Sign Reading Time Taken Blood Pressure 157/89 07/15/2017 10:57 AM CDT Pulse 92 07/15/2017 10:57 AM CDT Temperature 37.2 C (99 F) 07/15/2017 10:57 AM CDT Respiratory Rate 18 07/15/2017 10:57 AM CDT Oxygen Saturation 98% 07/15/2017 10:57 AM CDT Inhaled Oxygen Concentration - - Weight 35.4 kg (78 lb 0.7 oz) 07/15/2017 7:22 AM CDT Height 167.6 cm (5' 5.98") 06/26/2017 9:00 PM CDT Body Mass Index 12.6 07/15/2017 7:22 AM CDT Plan of Treatment Health Maintenance Due Date Last Done Comments INFLUENZA VACCINE 11/05/2017 Implants Implanted Type Area Bilingual Social Worker Device Expiration Model / Identifier Date Serial / Lot Matrix Floseal Hemo W/O Ndl5ml [id number] - [id number] Cement/Fi Left: Arm MCINTOSH:BIOSCI 08/04/2017 [id number] / Implanted: Qty: 1 on 05/08/2016 by Codie Lim MD ller/Daniel Lopez / [employer] [id number] Matrix Floseal Hemo W/O Ndl5ml [id number] - [id number] Cement/Fi Left: Arm MCINTOSH:BIOSCI 12/04/2017 [id number] / Implanted: Qty: 1 on 06/30/2016 by Codie Lim MD ller/Daniel Lopez / [employer] [id number] Procedures Procedure Name Priority Date/Time Associated Diagnosis Comments INSERTION,CHEST TUBE 06/30/2017 8:00 AM ESRD (end stage renal CDT disease) ([facility]) THORACOSCOPY 06/30/2017 8:00 AM ESRD (end stage renal (VATS),DECORTICATION CDT disease) ([facility]) BRONCHOSCOPY 06/30/2017 8:00 AM ESRD (end stage renal CDT disease) ([facility]) R & L CATH / CORONARY 02/23/2017 2:06 PM Q21.1 N18.6 ANGIOS / PCI 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 Component Value Ref Range POC-Glucose Meter 247 (H)Comment: TESTED AT [address] 70 - 110 mg/[place] [id number] Specimen Performing Laboratory Blood [facility] [address] [address] XR chest 1 view portable / bedside (07/15/2017 8:10 AM)Only the most recent of27 resultswithin the time period is included. Specimen Performing Laboratory GE RIS Narrative FINAL REPORT Chest One view: Reason for exam: Decortication Comparison Study: Chest x-ray, yesterday Discussion: A small right apical pneumothorax is identified, slightly decreased in size. A trace right pleural effusion is also noted. Consolidation is again noted in the left mid and lower lung, slightly improved. The heart size is normal. The bones are intact. Impression: 1. Slight decrease in small right hydropneumothorax. 2. Left mid and lower lung consolidation, slightly improved. Signed: Mervin Campbell MD Report Verified Date/Time:07/15/2017 08:39:08 Reading Location: [facility] C013X Ortho Consult Reading Room Procedure Note Interface, External Ris In - 07/15/2017 8:48 AM CDT FINAL REPORT Chest One view: Reason for exam: Decortication Comparison Study: Chest x-ray, yesterday Discussion: A small right apical pneumothorax is identified, slightly decreased in size. A trace right pleural effusion is also noted. Consolidation is again noted in the left mid and lower lung, slightly improved. The heart size is normal. The bones are intact. Impression: 1. Slight decrease in small right hydropneumothorax. 2. Left mid and lower lung consolidation, slightly improved. Signed: Mervin Campbell MD Report Verified Date/Time: 07/15/2017 08:39:08 Reading Location: [facility] C013X Ortho Consult Reading Room with platelet count + automated diff (07/15/2017 5:48 AM)Only the most recent of23 resultswithin the time period is included. Component Value Ref Range WBC 14.5 (H) 3.5 - 10.5 K/L RBC 3.41 (L) 4.63 - 6.08 M/L Hemoglobin 9.2 (L) 13.7 - 17.5 GM/DL Hematocrit 31.3 (L) 40.1 - 51.0 % MCV 91.8 79.0 - 92.2 fL MCH 27.0 25.7 - 32.2 pg MCHC 29.4 (L) 32.3 - 36.5 GM/DL RDW 19.3 (H) 11.6 - 14.4 % Platelets 351 150 - 450 K/CU MM MPV 11.4 9.4 - 12.4 fL nRBC 0 0 - 0 /100 WBC % Neutros 79 % % Lymphs 7 % % Monos 10 % % Eos 3 % % Baso 1 % # Neutros 11.45 (H) 1.78 - 5.38 K/L # Lymphs 0.99 (L) 1.32 - 3.57 K/L # Monos 1.44 (H) 0.30 - 0.82 K/L # Eos 0.41 0.04 - 0.54 K/L # Baso 0.09 (H) 0.01 - 0.08 K/L Immature Granulocytes-Relative 1 0 - 1 % Specimen Performing Laboratory Blood - Arm, [address] [address] aPTT (07/15/2017 5:48 AM)Only the most recent of16 resultswithin the time period is included. Component Value Ref Range PTT 40.2 (H) 22.5 - 36.0 seconds Specimen Performing Laboratory Blood - Arm, [address] [address] Prothrombin time/INR (07/15/2017 5:48 AM)Only the most recent of16 resultswithin the time period is included. Component Value Ref Range Protime 15.2 (H) 11.7 - 14.7 seconds INR 1.2 <=5.9 Specimen Performing Laboratory Blood - Arm, [address] [address] Narrative RECOMMENDED COUMADIN/WARFARIN INR THERAPY RANGES STANDARD DOSE: 2.0 - 3.0 Includes: PROPHYLAXIS for venous thrombosis, systemic embolization; TREATMENT for venous thrombosis and/or pulmonary embolus. HIGH RISK: Target INR is 2.5-3.5 for patients with mechanical heart valves. CBC with platelet count + automated diff (07/15/2017 5:48 AM)Only the most recent of23 resultswithin the time period is included. Specimen Performing Laboratory Blood Narrative The following orders were created for panel order CBC with platelet count + automated diff. Procedure Abnormality Status --------- ------ CBC with platelet count ...[[id number]]AbnormalFinal result Please view results for these tests on the individual orders. Phosphorus (07/15/2017 5:48 AM)Only the most recent of22 resultswithin the time period is included. Component Value Ref Range Phosphorus 3.2 2.3 - 4.7 mg/dL Specimen Performing Laboratory Blood - Arm, [address] [address] Magnesium (07/15/2017 5:48 AM)Only the most recent of21 resultswithin the time period is included. Component Value Ref Range Magnesium 2.1 1.6 - 2.6 mg/dL Specimen Performing Laboratory Blood - Arm, [address] [address] Basic Metabolic Panel (07/15/2017 5:48 AM)Only the most recent of21 resultswithin the time period is included. Component Value Ref Range Sodium 132 (L) 136 - 145 meq/L Potassium 4.8 3.5 - 5.1 meq/L Chloride 94 (L) 98 - 107 meq/L CO2 28 22 - 29 meq/L BUN 25 (H) 7 - 21 mg/dL Creatinine 3.94 (H) 0.57 - 1.25 mg/dL Glucose 267 (H) 70 - 105 mg/dL Calcium 9.3 8.4 - 10.2 mg/dL EGFR 17Comment: ESTIMATED GFR IS NOT ACCURATE mL/min/1.73 sq m CREATININE CLEARANCE IN PREDICTING GLOMERULAR FILTRATION RATE. ESTIMATED GFR IS NOT APPLICABLE FOR DIALYSIS PATIENTS. Specimen Performing Laboratory Blood - Arm, [address] [address] Hemodialysis (07/14/2017 1:42 PM)Only the most recent of3 resultswithin the time period is included. Narrative Hayes Mensah RN 07/14/20171:42 PM HD treatment completed, tolerated well, net UF -2.0L in 210min. AVF + thrill and bruit, pressure dressing clean and dry, no active bleeding at this time. Report given to primary care RN. Lab Results Component Value Date GLUCOSE 156 (H) 07/14/2017 CALCIUM 9.0 07/14/2017 NA 134 (L) 07/14/2017 K 4.8 07/14/2017 CO2 25 07/14/2017 CL 97 (L) 07/14/2017 BUN 40 (H) 07/14/2017 CREATININE 5.79 (H) 07/14/2017 Lab Results Component Value Date WBC 16.9 (H) 07/14/2017 HGB 8.8 (L) 07/14/2017 HCT 29.5 (L) 07/14/2017 MCV 90.2 07/14/2017 PLT 360 07/14/2017 Lab Results Component Value Date HEPBSAG Nonreactive 06/28/2017 Manual Differential (07/14/2017 9:21 AM)Only the most recent of6 resultswithin the time period is included. Component Value Ref Range % Neutros 83 % % Lymphs 10 % % Monos 1 % % Eos 6 % # Neutros 14.03 (H) 1.78 - 5.38 K/ul # Lymphs 1.69 1.32 - 3.57 K/ul # Monos 0.17 (L) 0.30 - 0.82 K/uL # Eos 1.01 (H) 0.04 - 0.54 K/uL Total Counted 100 WBC Morphology Normal Platelet Morphology Normal Polychromasia 1+ few Anisocytosis 1+ few Poikilocytes 1+ few Artifact Present Platelet Conc Adequate Specimen Performing [place] [address] Narrative Received comment: User comments: Slide comments: Protein, total (07/09/2017 4:30 AM) Component Value Ref Range Protein, Total 5.9 (L) 6.0 - 8.3 gm/dL Specimen Performing Laboratory Blood - Line, Arterial [address] [address] Prealbumin (07/09/2017 4:30 AM) Component Value Ref Range Prealbumin 12 (L) 14 - 45 mg/dL Specimen Performing Laboratory Blood - Line, Arterial [address] [address] Blood gas, arterial (07/09/2017 4:30 AM)Only the most recent of15 resultswithin the time period is included. Component Value Ref Range pH, Arterial 7.36 7.35 - 7.45 pCO2, Arterial 46 (H) 35 - 45 mmHg pO2, Arterial 156 (H) 80 - 90 mmHg O2 Sat, Arterial 98.9 (H) 96.0 - 97.0 % HCO3, Arterial 25 21 - 29 mmol/L Base Excess, Arterial -0.8 -2.0 - 3.0 mmol/L Patient Temperature 37.0 C FIO2 24.0 % Specimen Performing Laboratory Blood, Arterial - Line, Arterial [facility] [address] [address] Albumin (07/09/2017 4:30 AM) Component Value Ref Range Albumin 2.6 (L) 3.5 - 5.0 g/dL Specimen Performing Laboratory Blood - Line, Arterial [address] [address] Urinalysis w/Microscopic + Reflex to Culture (07/05/2017 10:00 PM) Component Value Ref Range Color, UA Yellow Clarity, UA Hazy Specific Titus, UA 1.016 1.001 - 1.035 pH, UA 6.5 5.0 - 8.0 Protein, UA 600 mg/dL (A) Negative Glucose, UA 500 mg/dL (A) Negative Ketones, UA Negative Negative Bilirubin, UA Negative Negative Blood, UA Negative Negative Nitrite, UA Negative Negative Leukocytes, UA Negative Negative Urobilinogen, UA 0.2 0.2 - 1.0 mg/dL RBC, UA 4 /HPF WBC, UA 2 /HPF Bacteria, UA Occasional Specimen Source Specimen Performing Laboratory Urine [address] [address] Blood culture (07/05/2017 12:09 PM) Component Value Ref Range Result No growth in 5 days Specimen Performing Laboratory Blood - Line, Arterial [address] [address] ECG 12 lead (07/05/2017 11:54 AM)Only the most recent of2 resultswithin the time period is included. Specimen Performing Laboratory GE MUSE Narrative Ventricular Rate 72 BPM Atrial Rate 72 BPM P-R Interval 174 ms QRS Duration 92 ms Q-T Interval 400 ms QTC Calculation(Bazett) 438 ms P Stitzer 75 degrees R Stitzer 74 degrees T Stitzer 117 degrees Normal sinus rhythm Nonspecific T wave abnormality Abnormal ECG When compared with ECG of 11-OCT-2016 10:45, Nonspecific T wave abnormality, worse in Inferior leads T wave inversion no longer evident in Lateral leads Confirmed by MD CARIDAD, CARLIE ([id number]) on 07/05/2017 3:12:57 PM Procedure Note Interface, External Ris In - 07/05/2017 3:13 PM CDT Ventricular Rate 72 BPM Atrial Rate 72 BPM P-R Interval 174 ms QRS Duration 92 ms Q-T Interval 400 ms QTC Calculation(Bazett) 438 ms P Stitzer 75 degrees R Stitzer 74 degrees T Stitzer 117 degrees Normal sinus rhythm Nonspecific T wave abnormality Abnormal ECG When compared with ECG of 11-OCT-2016 10:45, Nonspecific T wave abnormality, worse in Inferior leads T wave inversion no longer evident in Lateral leads Confirmed by MD MCLEAN JORGE ([id number]) on 07/05/2017 3:12:57 PM PT/aPTT (07/05/2017 5:33 AM)Only the most recent of4 resultswithin the time period is included. Component Value Ref Range Protime 15.6 (H) 11.7 - 14.7 seconds INR 1.2 <=5.9 PTT 55.5 (H) 22.5 - 36.0 seconds Specimen Performing Laboratory Blood - Line, Arterial [address] [address] Narrative RECOMMENDED COUMADIN/WARFARIN INR THERAPY RANGES STANDARD DOSE: 2.0 - 3.0 Includes: PROPHYLAXIS for venous thrombosis, systemic embolization; TREATMENT for venous thrombosis and/or pulmonary embolus. HIGH RISK: Target INR is 2.5-3.5 for patients with mechanical heart valves. Vancomycin level, random (07/03/2017 3:17 AM)Only the most recent of2 resultswithin the time period is included. Component Value Ref Range Vancomycin Rm 12.7 ug/mL Specimen Performing Laboratory Blood - Line, Arterial [address] [address] Narrative Reference Range: No Normals Bronchial culture + gram stain (07/01/2017 2:23 PM) Component Value Ref Range Result 1+ Normal respiratory morelia present Gram Stain Result 1+ WBCs Gram Stain Result No organisms seen Specimen Performing Laboratory BAL - Lung, Left [address] [address] TRANSFUSION SERVICE REPORT - SCAN (06/30/2017 5:40 PM)Only the most recent of2 resultswithin the time period is included.Anaerobic culture (06/30/2017 1:36 PM )Only the most recent of8 resultswithin the time period is included. Component Value Ref Range Result No anaerobes isolated Specimen Performing Laboratory BAL - Lung, Right Lower Lobe [address] [address] Surgically obtained culture + gram stain (06/30/2017 1:36 PM)Only the most recent of8 resultswithin the time period is included. Component Value Ref Range Result 1+ Coagulase negative Staphylococcus (A) Gram Stain Result <1+ WBCs Gram Stain Result No organisms seen Specimen Performing Laboratory Tissue - Lung, Right Lower Lobe [address] [address] Organism Antibiotic Method Susceptibility Coagulase negative Clindamycin <=0.12: Susceptible Staphylococcus Coagulase negative Erythromycin >=8: Resistant Staphylococcus Coagulase negative Linezolid 1: Susceptible Staphylococcus Coagulase negative Oxacillin >=4: Resistant Staphylococcus Coagulase negative Rifampin <=0.5: Susceptible Staphylococcus Coagulase negative Tetracycline 2: Susceptible Staphylococcus Coagulase negative Trimethoprim + 20: Susceptible Staphylococcus Sulfamethoxazole Coagulase negative Vancomycin 2: Susceptible Staphylococcus Comment: Staphylococcus aureus isolates with vancomycin MICs >=2 mcg/mL have been associated with treatment failure and may require adjustment in therapeutic levels or selection of alternative therapies. Fungus culture + smear (06/30/2017 1:36 PM)Only the most recent of8 resultswithin the time period is included. Component Value Ref Range Result No fungus isolated in 28 days Fungus Smear No fungi seen Specimen Performing Laboratory BAL - Lung, Right Lower Lobe [address] [address] Tissue Exam (06/30/2017 11:18 AM) Component Value Ref Range Case Report Surgical Pathology Report Case: [id number] Authorizing Provider:Guillermo Snow MD Collected: 06/30/2017 1118 Ordering Location: [address] Received: 07/03/2017 0751 Service Pathologist: Frantz Ruiz MD Specimens: A) - Lung, Left Lower Lobe, Left lower lobe peel B) - Lung, Left Upper Lobe, Left upper lobe peel DIAGNOSIS A. LUNG, LEFT LOWER LOBE, PLEURAL DECORTICATION: -ORGANIZING PLEURITIS -NEGATIVE FOR MALIGNANCY B.LUNG, LEFT LOWER LOBE, PLEURAL DECORTICATION: -ORGANIZING PLEURITIS -NEGATIVE FOR MALIGNANCY Signing Pathologist Direct Phone Line: [phone] CPT Code(s) 30862K1 CLINICAL HISTORY ILD pleural effusion SPECIMEN SOURCE A. Left lower lobe peel; B. Left upper lobe peel GROSS DESCRIPTION The specimen is received in two containers of formalin both labeled with the patient's information. Specimen A labeled "left lower lobe peel" consists of two fragments of off white fibromembranous tissue measuring 3 x 1 x 1 cm. Tissue is sectioned further and submitted entirely A1 and A2. Specimen B labeled "left upper lobe peel" consists of hemorrhagic fibromembranous tissue measuring 2.5 x 2 x 0.4 cm. The specimen is sectioned, submitted entirely B1 to B3. CG/pl MICROSCOPIC DESCRIPTION Performed. Specimen Performing Laboratory Tissue - Lung, Left Lower Lobe; Tissue - [facility] Lung, Left Upper Lobe [address] [place] [address] [facility] Critical Labs (ABG,NA,K,H&H,GLU) (06/30/2017 10:20 AM) Specimen Performing Laboratory Blood, Arterial Narrative The following orders were created for panel order [facility]RL Critical Labs (ABG,NA,K,H&H,GLU). Procedure Abnormality Status --------- ------ Blood gas, arterial[[id number]]AbnormalFinal result Sodium Na-Stat Lab[[id number]] AbnormalFinal result Potassium-Stat Lab[[id number]] NormalFinal result Glucose-Stat Lab[[id number]] AbnormalFinal result HGB/HCT (H&H)-Stat Lab[[id number]] Abnormal Final result Please view results for these tests on the individual orders. Potassium-Stat Lab (06/30/2017 10:20 AM) Component Value Ref Range Potassium 4.5 3.6 - 5.5 meq/L Specimen Performing Laboratory Blood, Arterial [address] [address] Sodium Na-Stat Lab (06/30/2017 10:20 AM) Component Value Ref Range Sodium 134 (L) 135 - 148 meq/L Specimen Performing Laboratory Blood, Arterial [address] [address] Glucose-Stat Lab (06/30/2017 10:20 AM) Component Value Ref Range Glucose 193 (H) 70 - 110 mg/dL Specimen Performing Laboratory Blood, Arterial [address] [address] HGB/HCT (H&H)-Stat Lab (06/30/2017 10:20 AM) Component Value Ref Range Hemoglobin 9.8 (L) 13.0 - 16.8 g/dL Hematocrit 29.0 (L) 40.0 - 50.0 % Specimen Performing Laboratory Blood, Arterial [address] [address] Type and screen, automated (06/29/2017 9:29 AM)Only the most recent of2 resultswithin the time period is included. Component Value Ref Range Ab Scrn NEGATIVEComment: Echo2 Specimen Performing Laboratory Blood [address] [address] ABORH, manual (06/29/2017 9:29 AM) Component Value Ref Range ABO Grouping AComment: pre-warm reverse Rh Factor POS Specimen Performing Laboratory Blood [address] [address] Histoplasma antigen, urine (06/28/2017 7:09 PM) Component Value Ref Range Histoplasma Antigen <0.5 ng/mL Comment: REFERENCE RANGE: <0.5 ng/mL Histoplasma galactomannan is frequently detected in urine from patients with disseminated histoplasmosis. However, a negative result does not exclude a diagnosis of histoplasmosis. Many patients with acute pulmonary disease or chronic cavitary disease do not exhibit antigenuria. Galactomannan levels in urine typically decrease with successful treatment. Specimens from patients with other endemic mycoses, such as blastomycosis, coccidioidomycosis, or aspergillosis, may also be positive in this assay. This test should be used in conjunction with other diagnostics tests, including culture, molecular assays, and histology in making a final diagnosis. This test was developed and its analytical performance characteristics have been determined by [facility]. It has not been cleared or approved by the U.S. Food and Drug Administration.The FDA has determined that such clearance or approval is not necessary. This assay has been validated pursuant to the CLIA regulations andis used for clinical purposes. Specimen Performing Laboratory Urine - Urine, Voided [facility] [address] [place] [address] Narrative Performing Lab *QDID [facility] [address] [place] [address] Kimberly Elliott MD pH, body fluid (06/28/2017 6:23 PM) Component Value Ref Range pH, Body Fluid 9.00 Specimen Performing Laboratory Body Fluid - Pleural, Left [address] [address] Glucose, body fluid (06/28/2017 6:23 PM) Component Value Ref Range Glucose, Body Fluid 108 70 - 110 mg/dL Specimen Performing Laboratory Body Fluid - Pleural, Left [address] [address] Narrative Absence of reference range indicates that normals have not been defined. Assay performance has not been validated for this type of specimen. Adenosine Deaminase, Fluid (06/28/2017 6:23 PM) Component Value Ref Range Adenosine Deaminase 5.2 <9.2 U/L Comment: REFERENCE INTERVAL: ADENOSINE DEAMINASE Tuberculosismean 92.1 U/L Metastatic malignancies mean 23.3 U/L Mesotheliomas mean 34.9 U/L Pulmonary embolismmean 23.8 U/L Lymphomamean 64.3 U/L This test was performed using a kit that has not been cleared or approved by the FDA.The analytical performance characteristics of this test have been determined by [facility] [place].This test should not be used for diagnosis without confirmation by other medically established means. Specimen Performing Laboratory Body Fluid - Pleural, Left Active [facility] [address] [place] [address] Narrative Performing Lab 15 [facility], [address] [facility] [place], [place] John Avalos MD, PhD Body fluid culture + gram stain (06/28/2017 6:23 PM) Component Value Ref Range Result No growth Gram Stain Result No White blood cells seen Gram Stain Result No organisms seen Specimen Performing Laboratory Body Fluid - Pleural, Left [address] [address] Body fluid cell count with differential (06/28/2017 6:23 PM) Component Value Ref Range Appearance Bloody (A) Clear Color Red (A) Colorless, Straw RBCs [address] (H) <=1 /cu mm Adjusted WBC Count 255 (H) <=5 /cu mm Lining Cells 0 <=1 /cu mm % Segs 5 % % Lymphs 91 % % Monos 1 % % Eos 2 % % Baso 1 % Container Body Fluid EDTA Tube Specimen Performing Laboratory Body Fluid - Pleural, Left [address] [address] Protein, body fluid (06/28/2017 6:23 PM) Component Value Ref Range Protein, Fluid 1.5 Light's criteria identifies effusions if one or more are present: Pleural to serum protein ratio of more than 0.5; Pleural to Serum LDH of more than 0.6; Pleural LDH of more than two third of upper serum reference limit g/dL Specimen Performing Laboratory Body Fluid - Pleural, Left [address] [address] Narrative Absence of reference range indicates that normals have not been defined. Assay performance has not been validated for this type of specimen. Lactate dehydrogenase (LDH), body fluid (06/28/2017 6:23 PM) Component Value Ref Range LDH, Fluid 100 Light's criteria identifies effusions if one or more are present: Pleural to serum protein ratio of more than 0.5; Pleural to serum LDH ratio of more than 0.6; Pleural LDH more than two third of upper serum reference limit U/L Specimen Performing Laboratory Body Fluid - Pleural, Left [address] [address] Narrative Absence of reference range indicates that normals have not been defined. Assay performance has not been validated for this type of specimen. Hepatitis B surface antigen (06/28/2017 9:56 AM)Only the most recent of3 resultswithin the time period is included. Component Value Ref Range hepatitis B Surface Ag Nonreactive Nonreactive Specimen Performing Laboratory Blood [address] [address] Potassium (06/28/2017 6:21 AM) Component Value Ref Range Potassium 5.9 (H) 3.5 - 5.1 meq/L Specimen Performing Laboratory Blood - Arm, Right [address] [address] T Spot TB (06/28/2017 4:44 AM)Only the most recent of3 resultswithin the time period is included. Component Value Ref Range T-Spot TB Negative Neg Ctrl Spot Count 0 Panel A Spot 0 Panel B Spot [address] 0 Scan Result Specimen Performing Laboratory Blood [facility] [address] [facility], [address] [place] [address] Coccidioides antibodies (06/28/2017 4:44 AM) Component Value Ref Range Coccidioides Ab,Id NEGATIVE Comment: REFERENCE RANGE:NEGATIVE INTERPRETIVE CRITERIA: NEGATIVE:Antibody Not Detected POSITIVE:Antibody Detected The immunodiffusion (ID) procedure correlates both in sensitivity and clinical utility with the CF test. The ID test, which detects IgG directed to the "F" antigen, becomes positive within 4 weeks after infection and remains positive throughout clinically active disease. It is most useful in confirming the specificity of low CF titers, where line(s) of identity are formed with reference antisera. Positive ID reactions are diagnostic for coccidioidomycosis and usually indicate active or recent disease and remain detectable for up to 1 year thereafter. Specimen Performing Laboratory Blood [facility] [address] [address] Narrative Performing Lab *QDID [facility] [address] [place] [phone] Kimberly Elliott MD Brucella abortus antibodies (IgG, IgM) (06/28/2017 4:44 AM) Component Value Ref Range BRUCELLA IGG 0.07 Brucella Igm 0.08 Comment: REFERENCE RANGE: <0.80 INTERPRETIVE CRITERIA: <0.80 Antibody not detected 0.80 - 1.09 Equivocal > or=1.10 Antibody detected If Brucella IgM Antibody is > or=1.10, then Brucella Antibody Agglutination confirmatory assay will be performed. Acute brucellosis is characterized by the appearance of Brucella-specific IgM within the first week of infection, followed by the appearance of Brucella-specific IgG after the second week. Levels of both IgM and IgG decline slowly over several months in conjunction with recovery. Persistence of high IgG levels with declining or absent IgM suggests chronic infection or relapse. Sera containing antibodies to Francisella tularensis may cross-react in the Brucella IgM assay. This test was developed and its analytical performance characteristics have been determined by [facility]. It has not been cleared or approved by the U.S. Food and Drug Administration.The FDA has determined that such clearance or approval is not necessary. This assay has been validated pursuant to the CLIA regulations and is used for clinical purposes. Specimen Performing Laboratory Blood [facility] [address] [place] [address] Narrative Performing Lab *QDID [facility] [address] [place] [address] chest without IV contrast (06/27/2017 10:08 PM) Specimen Performing Laboratory [employer] Narrative FINAL REPORT CT scan of the chest. MEDICAL HISTORY: Pleural effusion. COMPARISON STUDY: Chest x-ray dated June 27, 2017. TECHNIQUE: Contiguous helical slices were acquired through the thorax without the administration of contrast. This exam was performed according to our department dose optimization program which includes automated exposure control, adjustment of the mA and/or kV according to the patient's size and/or use of iterative reconstruction technique. FINDINGS: The mediastinum demonstrates no definite suspicious masses or adenopathy. Cardiomegaly is noted. There is a mild to moderate right-sided pleural effusion and mild to moderate residual left sided hydropneumothorax with a left-sided chest tube in place. Some volume loss is noted on the left side. The visualized portions of the upper abdomen are unremarkable. Extensive, diffuse anasarca is seen. The tracheobronchial tree is clear with no endobronchial lesions. The pulmonary parenchyma demonstrates extensive areas of atelectasis or consolidation with near-complete atelectasis of the left lung. Areas of subpleural nodularity are seen in the right lung. A 1 cm nodule is seen in the right upper lobe abutting the oblique fissure. Scattered groundglass opacities are seen. Bone windows demonstrate no focal abnormality. IMPRESSION: 1. Mild to moderate right-sided pleural effusion and mild to moderate left-sided hydropneumothorax with a left-sided chest tube in place. 2. Extensive areas of atelectasis or consolidation, particularly the left lung which is nearly completely atelectatic nature with only a small aerated portion. 3. Other scattered groundglass opacities and some subpleural nodularity. 4. Diffuse anasarca. Signed: Lonnie Hernandez MD Report Verified Date/Time:06/27/2017 22:28:12 Reading Location: [address] Consult Reading Room Procedure Note Interface, External Ris In - 06/27/2017 10:30 PM CDT FINAL REPORT CT scan of the chest. MEDICAL HISTORY: Pleural effusion. COMPARISON STUDY: Chest x-ray dated June 27, 2017. TECHNIQUE: Contiguous helical slices were acquired through the thorax without the administration of contrast. This exam was performed according to our department dose optimization program which includes automated exposure control, adjustment of the mA and/or kV according to the patient's size and/or use of iterative reconstruction technique. FINDINGS: The mediastinum demonstrates no definite suspicious masses or adenopathy. Cardiomegaly is noted. There is a mild to moderate right-sided pleural effusion and mild to moderate residual left sided hydropneumothorax with a left-sided chest tube in place. Some volume loss is noted on the left side. The visualized portions of the upper abdomen are unremarkable. Extensive, diffuse anasarca is seen. The tracheobronchial tree is clear with no endobronchial lesions. The pulmonary parenchyma demonstrates extensive areas of atelectasis or consolidation with near-complete atelectasis of the left lung. Areas of subpleural nodularity are seen in the right lung. A 1 cm nodule is seen in the right upper lobe abutting the oblique fissure. Scattered groundglass opacities are seen. Bone windows demonstrate no focal abnormality. IMPRESSION: 1. Mild to moderate right-sided pleural effusion and mild to moderate left-sided hydropneumothorax with a left-sided chest tube in place. 2. Extensive areas of atelectasis or consolidation, particularly the left lung which is nearly completely atelectatic nature with only a small aerated portion. 3. Other scattered groundglass opacities and some subpleural nodularity. 4. Diffuse anasarca. Signed: Lonnie Hernandez MD Report Verified Date/Time: 06/27/2017 22:28:12 Reading Location: [address] Consult Reading Room Iron, TIBC, % sat. (without ferritin) (06/27/2017 4:23 AM) Component Value Ref Range Iron 35 (L) 40 - 160 ug/dL TIBC 121 (L) 250 - 450 ug/dL Iron % Saturation 29 20 - 55 % Specimen Performing Laboratory Blood - Arm, [address] [address] Vitamin D, 25-Hydroxy (06/27/2017 4:23 AM) Component Value Ref Range Vitamin D 25-Hydroxy 15.7 6.6 - 49.9 ng/mL Specimen Performing Laboratory Blood - Arm, [address] [address] Narrative Effective 11/15/2016: Reference Range Change New: 6.6-49.9 ng/mL Previous: 13.0-47.8 ng/mL Recommended Vitamin D Target Range: 30.0-40.0 ng/mL PTH, intact (06/27/2017 4:23 AM)Only the most recent of3 resultswithin the time period is included. Component Value Ref Range PTH 330.0 (H) 8.5 - 72.5 pg/mL Specimen Performing Laboratory Blood - Arm, [address] [address] Hemoglobin A1c (06/27/2017 4:23 AM)Only the most recent of3 resultswithin the time period is included. Component Value Ref Range Hemoglobin A1C 7.0 (H) 4.3 - 6.1 % Specimen Performing Laboratory Blood - Arm, [address] [address] Ferritin (06/27/2017 4:23 AM) Component Value Ref Range Ferritin 1317 (H) 5 - 275 ng/mL Specimen Performing Laboratory Blood - Arm, [address] [address] CARDIAC CATH REPORT - SCAN (03/02/2017 9:22 PM)TSH (02/23/2017 8:48 AM) Component Value Ref Range TSH 3.60 0.35 - 4.94 uIU/mL Specimen Performing Laboratory [address] [address] B-type Natriuretic Factor (BNP) (02/23/2017 8:48 AM) Component Value Ref Range BNP 875 (H) 0 - 100 pg/mL Specimen Performing Laboratory Blood [address] [address] Hepatic function panel (02/23/2017 8:48 AM) Component Value Ref Range Protein, Total 7.8 6.0 - 8.3 gm/dL Albumin 3.9 3.5 - 5.0 g/dL Total Bilirubin 0.6 0.2 - 1.2 mg/dL Bilirubin, Direct 0.2 0.1 - 0.5 mg/dL Alkaline Phosphatase 112 40 - 150 U/L AST 12 5 - 34 U/L ALT 8 6 - 55 U/L Specimen Performing Laboratory Blood [address] [address] Lipid panel (02/23/2017 8:48 AM)Only the most recent of2 resultswithin the time period is included. Component Value Ref Range Triglycerides 102 mg/dL Cholesterol 166 mg/dL HDL 55 mg/dL LDL Calculated 91 mg/dL Specimen Performing Laboratory Blood [address] [address] Narrative Triglyceride Reference Range: Low Risk <150 [id number] High Risk 200-499 Very High Risk>=500 Cholesterol Reference Range: Low Risk <200 [id number] High Risk>240 HDL Cholesterol Reference Range: Low Risk >=60 High Risk <40 LDL Cholesterol Reference Range: Optimal<100 Near [id number] [id number] Pptl596-439 Very High >=190 ECHOCARDIOGRAM REPORT - SCAN (01/11/2017 5:10 PM)Only the most recent of2 resultswithin the time period is included.Transesophageal echo (01/11/2017 11: 00 AM) Component Value Ref Range Ejection Fraction Specimen Performing Laboratory [facility] Narrative Transesophageal Echocardiography Report (ROSIE) Demographics Patient Name JAH BARRERA Date of Study 01/11/2017 ASHLEY [id number] GenderMale Visit Number [id number] RaceUnkno [id number] Number OP Number Date of Birth1975 Referring Physician Nicole Howard MD Age41 year(s) Manager Retail Sebastián Blake, Physician MD Arnold Man MD [...] External Ris In - 01/11/2017 4:09 PM [employer] Transesophageal Echocardiography Report (ROSIE) Demographics Patient Name JAH BARRERA Date of Study 01/11/2017 ASHLEY Gender Male Visit Number [id number] Race Unknown Room Number OP Number Date of 1975 Referring Physician Nicole Howard MD Age 41 year(s) Manager Retail Sebastián Llanes Interpreting Jaspreet Blake Physician MD Arnold Man MD Fellow Justyn [...] normal Chambers/Structures Aorta Ascending Aorta: 2.53 cm Flow PRA Class I and II (11/17/2016 12:00 PM) Component Value Ref Range Date of Serum 134166 Serum# [id number] Flow PRA Class I and II See Scanned Report Specimen Performing Laboratory Blood [facility] IMMUNE EVALUATION LAB [facility] María [facility] [place] Maryann, MS:BCM [address] [place] [address] HLA Typing (11/17/2016 12:00 PM) Component Value Ref Range HLA Result See Scanned Report HLA-A AG1 HLA-A AG2 HLA-B AG1 HLA-B AG2 HLA-C AG1 HLA-C AG2 HLA-DR AG1 HLA-DR 2nd Antigen HLA-DQ AG1 HLA-DQ AG2 HLA-DRW Specimen Performing Laboratory Blood [facility] IMMUNE EVALUATION LAB [facility] One Solodina Wolf, MS:BCM [address] [place] [address] Urinalysis, Routine (11/17/2016 9:28 AM)Only the most recent of2 resultswithin the time period is included. Component Value Ref Range Color, UA Yellow Clarity, UA Clear Specific Titus, UA 1.017 1.001 - 1.035 pH, UA [...] /LPF Specimen Source Specimen Performing Laboratory Urine [address] [address] Urine Culture (11/17/2016 9:28 AM)Only the most recent of2 resultswithin the time period is included. Component Value Ref Range Result No growth Specimen Performing Laboratory Urine - Urine, Unspecified Source [address] [address] Uric Acid (11/17/2016 9:28 AM)Only the most recent of2 resultswithin the time period is included. Component Value Ref Range Uric Acid 3.8 2.6 - 7.2 mg/dL Specimen Performing Laboratory Blood [address] [address] Lactate Dehydrogenase (LDH) (11/17/2016 9:28 AM)Only the most recent of2 resultswithin the time period is included. Component Value Ref Range LDH 252 (H) 125 - 220 U/L Specimen Performing Laboratory Blood [address] [address] Gamma Glutamyl Transferase (GGT) (11/17/2016 9:28 AM)Only the most recent of2 resultswithin the time period is included. Component Value Ref Range GGT 32 9 - 64 U/L Specimen Performing Laboratory Blood [address] [address] Comprehensive metabolic panel (11/17/2016 9:28 AM)Only the [...] FOR DIALYSIS PATIENTS. Specimen Performing Laboratory Blood [address] [address] HIV-1 Antigen with HIV-1/2 Antibody (11/17/2016 9:27 AM)Only the most recent of2 resultswithin the time period is included. Component Value Ref Range HIV-1 Antigen with HIV 1&2 Antibody Nonreactive Nonreactive Specimen Performing Laboratory Blood [address] [address] Hepatitis C Antibody (11/17/2016 9:27 AM)Only the most recent of2 resultswithin the time period is included. Component Value Ref Range Hepatitis C Ab Nonreactive Nonreactive Specimen Performing Laboratory Blood [address] [address] Cytomegalovirus antibody, IgM (11/17/2016 9:27 AM)Only the most recent of2 resultswithin the time period is included. Component Value Ref Range CMV IgM Negative Specimen Performing Laboratory Blood [address] [address] Hepatitis B core antibody, IgM (11/17/2016 9:27 AM)Only the most recent of2 resultswithin the time period is included. Component Value Ref Range Hep B C IgM Nonreactive Nonreactive Specimen Performing Laboratory Blood [address] [address] EBV-VCA antibody, IgM (11/17/2016 9:27 AM)Only the most recent of2 resultswithin the time period is included. Component Value Ref Range EBV VCA IgM Negative Specimen Performing Laboratory Blood [address] [address] EBV-VCA antibody, IgG (11/17/2016 9:27 AM)Only the most recent of2 resultswithin the time period is included. Component Value Ref Range EBV VCA IgG Positive Specimen Performing Laboratory Blood [address] [address] RPR (11/17/2016 9:27 AM)Only the most recent of2 resultswithin the time period is included. Component Value Ref Range RPR Nonreactive Nonreactive Specimen Performing Laboratory Blood [address] [address] Hepatitis B surface antibody (11/17/2016 9:27 AM)Only the most recent of2 resultswithin the time period is included. Component Value Ref Range Hep B S Ab 78.1 (H) <8.0 mIU/mL Specimen Performing Laboratory Blood [address] [address] Cytomegalovirus antibody, IgG (11/17/2016 9:27 AM)Only the most recent of2 resultswithin the time period is included. Component Value Ref Range CMV IgG Negative Specimen Performing Laboratory Blood [address] [address] Varicella Zoster Antibody, IgG (11/17/2016 9:27 AM)Only the most recent of2 resultswithin the time period is included. Component Value Ref Range Varicella IgG 3.0 Al Specimen Performing Laboratory Blood [address] [address] Narrative VARICELLA ZOSTER RESULT INTERPRETATIONS: <=0.8 AlNonreactive:Presumed non-immune to VZV 0.9-1.0 AlEquivocal >=1.1 AlReactive:Presumed immune to VZV Blood typing, automated (11/17/2016 9:26 AM) Component Value Ref Range ABO/RH AUTOMATED (BEAKER) A POSITIVE Specimen Performing Laboratory Blood [address] [address] Direct AHG (VARGHESE)/Direct Alexus (11/17/2016 9:26 AM)Only the most recent of2 resultswithin the time period is included. Component Value Ref Range Direct AHG-IGG NEGATIVEComment: Saline Control-neg Direct AHG-C3B, C3D NEGATVIE Specimen Performing Laboratory Blood [address] [address] Occult blood, stool (10/31/2016 3:00 PM)Only the most recent of2 resultswithin the time period is included. Component Value Ref Range Occult blood Negative Negative Specimen Performing Laboratory Stool [address] [address] [place] Cystogram Cine or Video Voiding (10/11/2016 [...] is noted. Impression: Normal VCUG Signed: Kevin Almanza MD Report Verified Date/Time:10/11/2016 13:04:21 Reading Location: [address] Ortho Consult Reading Room Procedure Note Interface, External [...] is noted. Impression: Normal VCUG Signed: Kevin Almanza MD Report Verified Date/Time: 10/11/2016 13:04:21 Reading Location: [facility] C0[facility] Ortho Consult Reading Room myocardial perfusion PET (rest and stress) (10/11/2016 10:39 AM) Specimen Performing Laboratory obopay FINAL REPORT PROCEDURE: Rest/Stress MYOCARDIAL PERFUSION PET with regadenoson\\XA9\\ CPT CODE: 83654 INDICATION: End-stage renal disease, preoperative evaluation for [...] stress.5. Normal extracardiac tracer distribution.6. No previous [facility] study for comparison. NONINVASIVE RISK STRATIFICATION: The above findings are considered low risk (<1% annual mortality rate) based on the following criterion: - Normal or small myocardial perfusion defect at rest or with stress (JACC. 2012;59(9):857-88.) Signed: Nicolas Kimble MD Report Verified Date/Time:10/11/2016 14:10:21 Reading Location: [address] Reading Room Procedure Note Interface, External Ris In - 10/16/2016 6:37 PM CDT FINAL REPORT PROCEDURE: Rest/Stress MYOCARDIAL PERFUSION PET with regadenoson\\XA9\\ CPT CODE: 68597 INDICATION: End-stage renal disease, preoperative evaluation for [...] Normal extracardiac tracer distribution. 6. No previous [facility] study for comparison. NONINVASIVE RISK STRATIFICATION: The above findings are considered low risk (<1% annual mortality rate) based on the following criterion: - Normal or small myocardial perfusion defect at rest or with stress (JACC. 2012;59(9):857-81.) Signed: Nicolas Kimble MD Report Verified Date/Time: 10/11/2016 14:10:21 Reading Location: [address] [id number] [facility] Reading Room Treadmill tolerance(Non-Nuclear Treadmill) (10/11/2016 10:23 AM) Specimen Performing Laboratory [employer] Narrative Protocol Name Regadenoson Time In Exercise [...] COREG CARDUA Confirmed by fellow Bill Bear ([id number]) on 10/11/2016 10:51:59 AM Confirmed by Herber [...] COREG CARDUA Confirmed by fellow Bill Bear ([id number]) on 10/11/2016 10:51:59 AM Confirmed by Herber MARY MICHAEL ([id number]) on 10/12/2016 7:42:39 AM 2D Echo W/Doppler(CW/PW/Color) (10/11/2016 7:59 AM) Component Value Ref Range Ejection Fraction Specimen Performing Laboratory [facility] Narrative Transthoracic Echocardiography Report (TTE) Demographics Patient NameJAH BARRERA Date of Study10/11/2016 ASHLEY Gender Male Visit [id number] Race Unknown Number Number Date of 1975 Referring Nikhil Guzman Physician Age 41 year(s) Manager Retail Jac Carbone RCS Interpreting [facility] Needs to be Pre Physician Read Jaspreet Blake MD FellowSUSANA Beasley FEL Procedure Type of Study TTE [...] Study 10/11/2016 ASHLEY Gender Male Visit Number [id number] Race Unknown Room Number Number Date of 1975 Referring Nikhil Guzman Physician Age 41 year(s) Manager Retail Jac ALFONSO Interpreting [facility] Needs to be Pre Physician [...] MD Report Verified Date/Time:08/16/2016 16:26:06 Reading Location: [address] Radiology Reading Room Procedure Note Interface, [...] Report Verified Date/Time: 08/16/2016 16:26:06 Reading Location: [address] Radiology Reading Room abdomen complete (08/16/2016 3:05 PM) Specimen Performing Laboratory [facility] Narrative FINAL REPORT TECHNIQUE: Grayscale ultrasound of [...] MD Report Verified Date/Time:08/16/2016 15:24:57 Reading Location: [address] Radiology Reading Room Procedure Note Interface, [...] Report Verified Date/Time: 08/16/2016 15:24:57 Reading Location: [address] Radiology Reading Room chest 2 views [...] MD Report Verified Date/Time:08/16/2016 14:04:47 Reading Location: [address] Radiology Reading Room Procedure Note Interface, [...] Report Verified Date/Time: 08/16/2016 14:04:47 Reading Location: [address] Radiology Reading Room after 08/05/2016
--- OUTSIDE RECORDS SUMMARY | 2017-08-06 16:45 | XMS REPORT ---
:1975 [facility] Address [address] [place] [address] [address]. [address] [place] [address] Care Team Providers Name Role Phone JOHNSON GARCIA Unavailable Unavailable JAZMYNE ACEVES Unavailable Unavailable OSCAR LEVY Unavailable Unavailable BENY VALLES Unavailable Unavailable Problems This patient has no known problems. Allergies, Adverse Reactions, Alerts This patient has no known allergies or adverse reactions. Medications This patient has no known medications. Results Test Description Test Time Test Comments Text Results Atomic Results Result Comments FUNGUS CULTURE + SMEAR 2017-08-01 16:40:00 Test Item Value Reference Range Comments CULTURE (BEAKER) (test vjqw=1580) No fungus isolated in 28 days FUNGUS SMEAR (BEAKER) (test mxog=3590) No fungi seen FUNGUS CULTURE + [id number] 16:40:00 Test Item Value Reference Range Comments CULTURE (BEAKER) (test No fungus isolated in 28 days keco=7787) FUNGUS SMEAR (BEAKER) (test No fungi seen qoit=8222) FUNGUS CULTURE + [id number] 16:40:00 Test Item Value Reference Range Comments CULTURE (BEAKER) (test No fungus isolated in 28 days nnyn=3243) FUNGUS SMEAR (BEAKER) (test No fungi seen kytr=5781) FUNGUS CULTURE + [id number] 16:40:00 Test Item Value Reference Range Comments CULTURE (BEAKER) (test No fungus isolated in 28 days qnnx=1733) FUNGUS SMEAR (BEAKER) (test No fungi seen ehxm=8998) FUNGUS CULTURE + [id number] 16:40:00 Test Item Value Reference Range Comments CULTURE (BEAKER) (test No fungus isolated in 28 days jcdy=6745) FUNGUS SMEAR (BEAKER) (test No fungi seen sxca=6473) FUNGUS CULTURE + [id number] 16:40:00 Test Item Value Reference Range Comments CULTURE (BEAKER) (test No fungus isolated in 28 days fzkn=0870) FUNGUS SMEAR (BEAKER) (test No fungi seen dteu=1320) FUNGUS CULTURE + [id number] 16:40:00 Test Item Value Reference Range Comments CULTURE (BEAKER) (test No fungus isolated in 28 days asab=6861) FUNGUS SMEAR (BEAKER) (test No fungi seen ekyv=9748) FUNGUS CULTURE + [id number] 16:40:00 Test Item Value Reference Range Comments CULTURE (BEAKER) (test No fungus isolated in 28 days qune=0467) FUNGUS SMEAR (BEAKER) (test No fungi seen kkyo=8246) POCT-GLUCOSE [id number] 11:56:00 Test Item Value Reference Range Comments POC-GLUCOSE METER (BEAKER) 247 mg/dL 70-110 TESTED AT [address] (test pyni=7706) [place] [address] RAD, CHEST, 1 VIEW, NON [id number] 08:39:00Reason for exam:->s/p decorticationShould this be performed at the bedside?->YesFINAL REPORT Chest One view: Reason for exam: Decortication Comparison Study:Chest x-ray, yesterday Discussion: A small right apical [...] lung consolidation, slightly improved. Signed: Mervin Campbell MDReport Verified Date/Time: 07/15/2017 08:39:08 Reading Location: [facility] C013X Ortho Consult Reading Room Electronically signed by: MERVIN CAMPBELL M.D. on 11/2017 08:39 AMPOCT-GLUCOSE [id number] 07:09:00 Test Item Value Reference Range Comments POC-GLUCOSE METER (BEAKER) 271 mg/dL 70-110 TESTED AT [address] (test rmri=7669) [place] [address] BASIC METABOLIC [id number] 06:41:00 Test Item Value Reference Range Comments SODIUM (BEAKER) (test 132 meq/L 136-145 zlkx=043) POTASSIUM (BEAKER) (test 4.8 meq/L 3.5-5.1 axom=178) CHLORIDE (BEAKER) (test 94 meq/L 98-107 wvsj=005) CO2 (BEAKER) (test 28 meq/L 22-29 iqkp=639) BLOOD UREA NITROGEN 25 mg/dL 7-21 (BEAKER) (test lkpt=203) CREATININE (BEAKER) (test 3.94 mg/dL 0.57-1.25 mujq=164) GLUCOSE RANDOM (BEAKER) 267 mg/dL 70-105 (test fxhh=569) CALCIUM (BEAKER) (test 9.3 mg/dL 8.4-10.2 dmow=154) EGFR (BEAKER) (test 17 mL/min/1.73 sq m ESTIMATED GFR IS NOT wwxz=7406) ACCURATE CREATININE CLEARANCE IN PREDICTING GLOMERULAR FILTRATION RATE. ESTIMATED GFR IS NOT APPLICABLE FOR DIALYSIS PATIENTS. [id number] 06:39:00 Test Item Value Reference Range Comments PHOSPHORUS (BEAKER) (test vtrv=101) 3.2 mg/dL 2.3-4.7 [id number] 06:39:00 Test Item Value Reference Range Comments MAGNESIUM (BEAKER) (test bhku=472) 2.1 mg/dL 1.6-2.6 CBC W/PLT COUNT & AUTO [id number] 06:30:00 Test Item Value Reference Range Comments WHITE BLOOD CELL COUNT (BEAKER) (test rzrx=586) 14.5 K/ L 3.5-10.5 RED BLOOD CELL COUNT (BEAKER) (test oute=647) 3.41 M/ L 4.63-6.08 HEMOGLOBIN (BEAKER) (test nmwe=478) 9.2 GM/DL 13.7-17.5 HEMATOCRIT (BEAKER) (test ktmr=967) 31.3 % 40.1-51.0 MEAN CORPUSCULAR VOLUME (BEAKER) (test nazu=178) 91.8 fL 79.0-92.2 MEAN CORPUSCULAR HEMOGLOBIN (BEAKER) (test 27.0 pg 25.7-32.2 wvln=451) MEAN CORPUSCULAR HEMOGLOBIN CONC (BEAKER) (test 29.4 GM/DL 32.3-36.5 zrri=024) RED CELL DISTRIBUTION WIDTH (BEAKER) (test 19.3 % 11.6-14.4 yipj=050) PLATELET COUNT (BEAKER) (test slbz=311) 351 K/CU MM 150-450 MEAN PLATELET VOLUME (BEAKER) (test pxvx=462) 11.4 fL 9.4-12.4 NUCLEATED RED BLOOD CELLS (BEAKER) (test 0 /100 WBC 0-0 ipzq=303) NEUTROPHILS RELATIVE PERCENT (BEAKER) (test 79 % hcqw=577) LYMPHOCYTES RELATIVE PERCENT (BEAKER) (test 7 % amsr=237) MONOCYTES RELATIVE PERCENT (BEAKER) (test 10 % weyt=978) EOSINOPHILS RELATIVE PERCENT (BEAKER) (test 3 % dsaf=646) BASOPHILS RELATIVE PERCENT (BEAKER) (test 1 % utab=732) NEUTROPHILS ABSOLUTE COUNT (BEAKER) (test 11.45 K/ L 1.78-5.38 kvji=569) LYMPHOCYTES ABSOLUTE COUNT (BEAKER) (test 0.99 K/ L 1.32-3.57 olsx=424) MONOCYTES ABSOLUTE COUNT (BEAKER) (test 1.44 K/ L 0.30-0.82 fazn=571) EOSINOPHILS ABSOLUTE COUNT (BEAKER) (test 0.41 K/ L 0.04-0.54 lpir=461) BASOPHILS ABSOLUTE COUNT (BEAKER) (test 0.09 K/ L 0.01-0.08 prkc=491) IMMATURE GRANULOCYTES-RELATIVE PERCENT (BEAKER) 1 % 0-1 (test zrwp=7082) [id number] 06:27:00 Test Item Value Reference Range Comments PARTIAL THROMBOPLASTIN TIME (BEAKER) (test 40.2 seconds 22.5-36.0 rhky=473) PROTHROMBIN [id number] 06:26:00 Test Item Value Reference Range Comments PROTIME (BEAKER) (test xbyv=341) 15.2 seconds 11.7-14.7 INR (BEAKER) (test egtr=871) 1.2 <=5.9 RECOMMENDED COUMADIN/WARFARIN INR THERAPY RANGESSTANDARD DOSE: 2.0 - 3.0 Includes: PROPHYLAXIS forvenous thrombosis, systemic embolization; TREATMENT for venous thrombosis and/or pulmonary embolus.HIGH RISK: Target INR is 2.5-3.5 for patients with mechanical heart valves.POCT-GLUCOSE [id number] 21:34:00 Test Item Value Reference Range Comments POC-GLUCOSE METER (BEAKER) 298 mg/dL 70-110 TESTED AT [address] (test wdqr=7291) [place] [id number] POCT-GLUCOSE [id number] 17:38:00 Test Item Value Reference Range Comments POC-GLUCOSE METER (BEAKER) 274 mg/dL 70-110 TESTED AT [address] (test uelv=8142) [place] [id number] POCT-GLUCOSE [id number] 11:32:00 Test Item Value Reference Range Comments POC-GLUCOSE METER (BEAKER) 143 mg/dL 70-110 TESTED AT [address] (test rtyy=2606) [place] [address] CBC W/PLT COUNT & AUTO [id number] 10:24:00 Test Item Value Reference Range Comments WHITE BLOOD CELL COUNT (BEAKER) (test ondk=493) 16.9 K/ L 3.5-10.5 RED BLOOD CELL COUNT (BEAKER) (test cwjq=408) 3.27 M/ L 4.63-6.08 HEMOGLOBIN (BEAKER) (test gfvu=742) 8.8 GM/DL 13.7-17.5 HEMATOCRIT (BEAKER) (test zryj=152) 29.5 % 40.1-51.0 MEAN CORPUSCULAR VOLUME (BEAKER) (test ttwj=913) 90.2 fL 79.0-92.2 MEAN CORPUSCULAR HEMOGLOBIN (BEAKER) (test 26.9 pg 25.7-32.2 ibdq=441) MEAN CORPUSCULAR HEMOGLOBIN CONC (BEAKER) (test 29.8 GM/DL 32.3-36.5 yphg=127) RED CELL DISTRIBUTION WIDTH (BEAKER) (test 19.5 % 11.6-14.4 ccoe=214) PLATELET COUNT (BEAKER) (test gnqv=833) 360 K/CU MM 150-450 MEAN PLATELET VOLUME (BEAKER) (test lpby=234) 11.6 fL 9.4-12.4 NUCLEATED RED BLOOD CELLS (BEAKER) (test 0 /100 WBC 0-0 uokg=734) (CELLAVISION MANUAL DIFF)2017-07-14 10:24:00 Test Item Value Reference Range Comments NEUTROPHILS - REL (CELLAVISION)(BEAKER) (test 83 % cltl=9112) LYMPHOCYTES - REL (CELLAVISION)(BEAKER) (test 10 % dogs=4684) MONOCYTES - REL (CELLAVISION)(BEAKER) (test 1 % gixp=8764) EOSINOPHILS - REL (CELLAVISION)(BEAKER) (test 6 % ibde=3773) NEUTROPHILS - ABS (CELLAVISION)(BEAKER) (test 14.03 K/ul 1.78-5.38 lhyc=5714) LYMPHOCYTES - ABS (CELLAVISION)(BEAKER) (test 1.69 K/ul 1.32-3.57 vdbz=1607) MONOCYTES - ABS (CELLAVISION)(BEAKER) (test 0.17 K/uL 0.30-0.82 fyeu=9499) EOSINOPHILS - ABS (CELLAVISION)(BEAKER) (test 1.01 K/uL 0.04-0.54 uwtg=0367) TOTAL COUNTED (BEAKER) (test nesc=7853) 100 WBC MORPHOLOGY (BEAKER) (test rxox=035) Normal PLT MORPHOLOGY (BEAKER) (test atob=724) Normal POLYCHROMATOPHILLIC RBCS(BEAKER) (test xyzj=853) 1+ few ANISOCYTOSIS (BEAKER) (test epob=891) 1+ few POIKILOCYTES (BEAKER) (test ogbb=122) 1+ few ARTIFACT (CELLAVISION)(BEAKER) (test siqi=4661) Present PLATELET CONCENTRATION (CELLAVISION)(BEAKER) Adequate (test gzay=9534) Received comment: User comments: Slide comments:[id number] 10:05:00 Test Item Value Reference Range Comments PARTIAL THROMBOPLASTIN TIME (BEAKER) (test 42.3 seconds 22.5-36.0 ixno=746) PROTHROMBIN TIME/[id number] 10:04:00 Test Item Value Reference Range Comments PROTIME (BEAKER) (test ycvt=433) 14.9 seconds 11.7-14.7 INR (BEAKER) (test jenv=052) 1.2 <=5.9 RECOMMENDED COUMADIN/WARFARIN INR THERAPY RANGESSTANDARD DOSE: 2.0 - 3.0 Includes: PROPHYLAXIS forvenous thrombosis, systemic embolization; TREATMENT for venous thrombosis and/or pulmonary embolus.HIGH RISK: Target INR is 2.5-3.5 for patients with mechanical heart valves.BASIC METABOLIC [id number] 10:01: 00 Test Item Value Reference Range Comments SODIUM (BEAKER) (test 134 meq/L 136-145 ikyo=657) POTASSIUM (BEAKER) (test 4.8 meq/L 3.5-5.1 jcyl=254) CHLORIDE (BEAKER) (test 97 meq/L 98-107 kibw=050) CO2 (BEAKER) (test 25 meq/L 22-29 yqjq=675) BLOOD UREA NITROGEN 40 mg/dL 7-21 (BEAKER) (test pteb=949) CREATININE (BEAKER) (test 5.79 mg/dL 0.57-1.25 ywjq=112) GLUCOSE RANDOM (BEAKER) 156 mg/dL 70-105 (test svdc=773) CALCIUM (BEAKER) (test 9.0 mg/dL 8.4-10.2 txiq=690) EGFR (BEAKER) (test 11 mL/min/1.73 sq m ESTIMATED GFR IS NOT vccz=3869) ACCURATE CREATININE CLEARANCE IN PREDICTING GLOMERULAR FILTRATION RATE. ESTIMATED GFR IS NOT APPLICABLE FOR DIALYSIS PATIENTS. [id number] 09:54:00 Test Item Value Reference Range Comments PHOSPHORUS (BEAKER) (test tkxz=788) 2.7 mg/dL 2.3-4.7 [id number] 09:54:00 Test Item Value Reference Range Comments MAGNESIUM (BEAKER) (test nxyg=602) 2.1 mg/dL 1.6-2.6 RAD, CHEST, 1 VIEW, NON [id number] 08:55:00Reason for exam:->s/p decorticationShould this be performed at the bedside?->YesFINAL REPORT HISTORY : s/p decortication. Comparison: 07/13/2017 Comment : Single portable view of the chest was obtained. The cardiac silhouette size is enlarged. There is some airspace disease in left mid-lower lung. There is a small right apical pneumothorax. There may be a trace left-sided pleural effusion. No lytic or blastic abnormalities are seen. There is some left apicalpleural thickening. There is some diffuse interstitial prominence. Signed : Eliseo Hardy MDReport Verified Date/Time: 07/14/2017 08:55:58 Reading Location: [facility] C013T Transitional Reading Room POCT-GLUCOSE [id number] 06:57:00 Test Item Value Reference Range Comments POC-GLUCOSE METER (BEAKER) 192 mg/dL 70-110 TESTED AT [address] (test mvpr=1938) [place] [id number] POCT-GLUCOSE [id number] 20:47:00 Test Item Value Reference Range Comments POC-GLUCOSE METER (BEAKER) 210 mg/dL 70-110 TESTED AT [address] (test ulxm=5024) [place] [id number] POCT-GLUCOSE [id number] 17:02:00 Test Item Value Reference Range Comments POC-GLUCOSE METER (BEAKER) 174 mg/dL 70-110 TESTED AT [address] (test yigc=5620) [facility] [address] RAD, CHEST, 1 VIEW, NON [id number] 16:29:00Reason for exam:->s/p right chest tube removalReason for exam:->s/p right chest tube removalFINAL REPORT Chest one view INDICATION: Status post right chest tube removal.COMPARISON: 07/13/2017 at 0701 hours IMPRESSION: A small volume right pneumothorax is stable in size post chest tube removal. Small volume left pneumothorax is stable. Together with pleural effusions, these suggest hydropneumothoraces. Left mid to lower lung consolidation or atelectasis is stable. Thereis pulmonary vascular congestion with decreased interstitial edema. Stable right basilar opacities suggest atelectasis. The cardiomediastinal contours are partially obscured but stable. Signed: Alexis Desai MDReport Verified Date/Time: 07/13/2017 16:29:39 Reading Location: [facility] C013W Consult Reading Room POCT-GLUCOSE [id number] 11:30:00 Test Item Value Reference Range Comments POC-GLUCOSE METER (BEAKER) 221 mg/dL 70-[address] [facility] [address] (test gphn=4711) [facility] [address] CBC W/PLT COUNT & AUTO [id number] 10:16:00 Test Item Value Reference Range Comments WHITE BLOOD CELL COUNT (BEAKER) (test gqsm=519) 15.0 K/ L 3.5-10.5 RED BLOOD CELL COUNT (BEAKER) (test hjld=995) 3.46 M/ L 4.63-6.08 HEMOGLOBIN (BEAKER) (test zprc=545) 9.5 GM/DL 13.7-17.5 HEMATOCRIT (BEAKER) (test ssas=410) 31.6 % 40.1-51.0 MEAN CORPUSCULAR VOLUME (BEAKER) (test ozkd=113) 91.3 fL 79.0-92.2 MEAN CORPUSCULAR HEMOGLOBIN (BEAKER) (test 27.5 pg 25.7-32.2 ghmb=004) MEAN CORPUSCULAR HEMOGLOBIN CONC (BEAKER) (test 30.1 GM/DL 32.3-36.5 mmgx=859) RED CELL DISTRIBUTION WIDTH (BEAKER) (test 19.9 % 11.6-14.4 dcja=148) PLATELET COUNT (BEAKER) (test nscw=111) 272 K/CU MM 150-450 MEAN PLATELET VOLUME (BEAKER) (test umbl=011) 11.1 fL 9.4-12.4 NUCLEATED RED BLOOD CELLS (BEAKER) (test 0 /100 WBC 0-0 cccb=412) (CELLAVISION MANUAL DIFF)2017-07-13 10:16:00 Test Item Value Reference Range Comments NEUTROPHILS - REL (CELLAVISION)(BEAKER) (test 74 % uduc=3597) LYMPHOCYTES - REL (CELLAVISION)(BEAKER) (test 6 % nejz=7881) MONOCYTES - REL (CELLAVISION)(BEAKER) (test 12 % icqc=4934) EOSINOPHILS - REL (CELLAVISION)(BEAKER) (test 6 % iour=5141) BASOPHILS - REL (CELLAVISION)(BEAKER) (test 1 % tphv=5518) BANDS - REL (CELLAVISION)(BEAKER) (test 1 % 0-10 dozh=2051) NEUTROPHILS - ABS (CELLAVISION)(BEAKER) (test 11.10 K/ul 1.78-5.38 fgqm=1283) LYMPHOCYTES - ABS (CELLAVISION)(BEAKER) (test 0.90 K/ul 1.32-3.57 onmt=1572) MONOCYTES - ABS (CELLAVISION)(BEAKER) (test 1.80 K/uL 0.30-0.82 yjkv=2729) EOSINOPHILS - ABS (CELLAVISION)(BEAKER) (test 0.90 K/uL 0.04-0.54 dxhf=6367) BASOPHILS - ABS (CELLAVISION)(BEAKER) (test 0.15 K/uL 0.01-0.08 iepz=7193) BANDS - ABS (CELLAVISION)(BEAKER) (test 0.15 K/uL 0.00-0.80 dbgl=5149) TOTAL COUNTED (BEAKER) (test ahsh=5799) 100 WBC MORPHOLOGY (BEAKER) (test bywq=635) Normal LARGE PLT(BEAKER) (test erlj=3613) Present POLYCHROMATOPHILLIC RBCS(BEAKER) (test lbvr=957) 1+ few BASOPHILIC STIPPLING (BEAKER) (test hlvf=334) Present ARTIFACT (CELLAVISION)(BEAKER) (test ttmi=6703) Present PLATELET CONCENTRATION (CELLAVISION)(BEAKER) Adequate (test ombj=1476) Received comment: User comments: Slide comments:RAD, CHEST, 1 VIEW, NON [id number] 07:39:00Reason for exam:->s/p decorticationShould this be performed at the bedside?->YesFINAL REPORT Chest one view INDICATION: Decortication COMPARISON: 07/12/2017 IMPRESSION: A small volume right pneumothorax has decreased with a chest tube in place. Small volume left pneumothorax is stable. Together with pleural effusions, these suggest hydropneumothoraces. Left mid to lower lung consolidation or atelectasis is stable. There is pulmonary vascular congestion with interstitial edema. Stable right basilar opacities suggest atelectasis. The cardiomediastinal contours are partially obscured but stable. Signed: Alexis Desai MDReport Verified Date/Time: 07/13/2017 07:39:01 Reading Location: [facility] Radiology Reading Room Electronically signed by: ALEXIS DESAI M.D. on 2017 07:39 AMPOCT-GLUCOSE [id number] 07:09:00 Test Item Value Reference Range Comments POC-GLUCOSE METER (BEAKER) 162 mg/dL 70-[address] [facility] [address] (test ylsh=4311) [facility] [address] BASIC METABOLIC [id number] 06:27:00 Test Item Value Reference Range Comments SODIUM (BEAKER) (test 134 meq/L 136-145 xbwr=555) POTASSIUM (BEAKER) (test 4.3 meq/L 3.5-5.1 sgfl=424) CHLORIDE (BEAKER) (test 98 meq/L 98-107 eglc=276) CO2 (BEAKER) (test 26 meq/L 22-29 owdp=042) BLOOD UREA NITROGEN 20 mg/dL 7-21 (BEAKER) (test xeph=266) CREATININE (BEAKER) (test 3.19 mg/dL 0.57-1.25 fyxw=410) GLUCOSE RANDOM (BEAKER) 189 mg/dL 70-105 (test maxw=338) CALCIUM (BEAKER) (test 8.6 mg/dL 8.4-10.2 ackb=385) EGFR (BEAKER) (test 22 mL/min/1.73 sq m ESTIMATED GFR IS NOT vnlu=8834) ACCURATE CREATININE CLEARANCE IN PREDICTING GLOMERULAR FILTRATION RATE. ESTIMATED GFR IS NOT APPLICABLE FOR DIALYSIS PATIENTS. [id number] 05:45:00 Test Item Value Reference Range Comments PHOSPHORUS (BEAKER) (test ywob=747) 2.4 mg/dL 2.3-4.7 [id number] 05:45:00 Test Item Value Reference Range Comments MAGNESIUM (BEAKER) (test hpun=651) 2.2 mg/dL 1.6-2.6 [id number] 05:21:00 Test Item Value Reference Range Comments PARTIAL THROMBOPLASTIN TIME (BEAKER) (test 44.8 seconds 22.5-36.0 sqgc=211) PROTHROMBIN TIME/[id number] 05:20:00 Test Item Value Reference Range Comments PROTIME (BEAKER) (test onyo=129) 15.6 seconds 11.7-14.7 INR (BEAKER) (test uiar=174) 1.2 <=5.9 RECOMMENDED COUMADIN/WARFARIN INR THERAPY RANGESSTANDARD DOSE: 2.0 - 3.0 Includes: PROPHYLAXIS forvenous thrombosis, systemic embolization; TREATMENT for venous thrombosis and/or pulmonary embolus.HIGH RISK: Target INR is 2.5-3.5 for patients with mechanical heart valves.POCT-GLUCOSE [id number] 21:30:00 Test Item Value Reference Range Comments POC-GLUCOSE METER (BEAKER) 366 mg/dL 70-110 Will Repeat Test/TESTED AT (test wtkd=1690) [place] [address] POCT-GLUCOSE [id number] 17:57:00 Test Item Value Reference Range Comments POC-GLUCOSE METER (BEAKER) 122 mg/dL 70-110 TESTED AT [address] (test cjjh=2767) [place] [id number] RAD, CHEST, 1 VIEW, NON [id number] 12:57:00Reason for exam:->R CT clampedShould this be performed at the bedside?->YesFINAL REPORT Chest one view INDICATION: Right chest tube clamped COMPARISON: 2017 at 0834 hours IMPRESSION: A small volume right pneumothorax is minimally larger post right chest tube clamping. A small volume left pneumothorax is stable. Together with pleural effusions, these suggest hydropneumothoraces. Left mid to lower lung consolidation or atelectasis is stable. Mild pulmonary edema persists. Stable right basilar opacities suggest atelectasis. The cardiomediastinal contours are partially obscured but stable. Signed: Alexis Desai MDReport Verified Date/Time: 07/12/2017 12:57:51 Reading Location: [facility] Radiology Reading Room POCT-GLUCOSE [id number] 11:39:00 Test Item Value Reference Range Comments POC-GLUCOSE METER (BEAKER) 81 mg/dL 70-110 TESTED AT [address] (test nrff=5745) [facility] [address] RAD, CHEST, 1 VIEW, NON [id number] 08:57:00Reason for exam:->s/p decorticationShould this be performed at the bedside?->YesFINAL REPORT Chest one view INDICATION: Decortication COMPARISON: 2017 IMPRESSION: A small volume right pneumothorax is mildly enlarged with a chest tube in place. A small volume left pneumothorax is stable. Together with pleural effusions, these suggest hydropneumothoraces.Left mid to lower lung consolidation or atelectasis is similar. Mild pulmonary edema persists. Stable right basilar opacities suggest atelectasis. The cardiomediastinal contours are partially obscured but stable. Signed: Alexis Desai MDReport Verified Date/Time: 07/12/2017 08:57:27 Reading Location: [facility] Radiology Reading Room Electronically signed by: ALEXIS DESAI M.D. on07/12/2017 08:57 AMPOCT-GLUCOSE [id number] 07:03:00 Test Item Value Reference Range Comments POC-GLUCOSE METER (BEAKER) 165 mg/dL 70-110 TESTED AT [address] (test fkbc=0941) [facility] [address] BASIC METABOLIC [id number] 05:10:00 Test Item Value Reference Range Comments SODIUM (BEAKER) (test 134 meq/L 136-145 zcwi=841) POTASSIUM (BEAKER) (test 4.2 meq/L 3.5-5.1 zxjv=512) CHLORIDE (BEAKER) (test 99 meq/L 98-107 xssz=693) CO2 (BEAKER) (test 25 meq/L 22-29 dwdm=956) BLOOD UREA NITROGEN 29 mg/dL 7-21 (BEAKER) (test zxjz=900) CREATININE (BEAKER) (test 4.75 mg/dL 0.57-1.25 dspf=294) GLUCOSE RANDOM (BEAKER) 79 mg/dL 70-105 (test dabt=469) CALCIUM (BEAKER) (test 9.3 mg/dL 8.4-10.2 sjbq=382) EGFR (BEAKER) (test 14 mL/min/1.73 sq m ESTIMATED GFR IS NOT eujz=8653) ACCURATE CREATININE CLEARANCE IN PREDICTING GLOMERULAR FILTRATION RATE. ESTIMATED GFR IS NOT APPLICABLE FOR DIALYSIS PATIENTS. PROTHROMBIN TIME/[id number] 05:02:00 Test Item Value Reference Range Comments PROTIME (BEAKER) (test fuut=660) 15.7 seconds 11.7-14.7 INR (BEAKER) (test cyud=861) 1.3 <=5.9 RECOMMENDED COUMADIN/WARFARIN INR THERAPY RANGESSTANDARD DOSE: 2.0 - 3.0 Includes: PROPHYLAXIS forvenous thrombosis, systemic embolization; TREATMENT for venous thrombosis and/or pulmonary embolus.HIGH RISK: Target INR is 2.5-3.5 for patients with mechanical heart valves.[id number] 05:02:00 Test Item Value Reference Range Comments PARTIAL THROMBOPLASTIN TIME (BEAKER) (test 45.4 seconds 22.5-36.0 ohlw=180) [id number] 04:50:00 Test Item Value Reference Range Comments PHOSPHORUS (BEAKER) (test ziuu=105) 2.1 mg/dL 2.3-4.7 [id number] 04:50:00 Test Item Value Reference Range Comments MAGNESIUM (BEAKER) (test otnf=165) 2.2 mg/dL 1.6-2.6 CBC W/PLT COUNT & AUTO [id number] 04:47:00 Test Item Value Reference Range Comments WHITE BLOOD CELL COUNT (BEAKER) (test dgdh=636) 15.4 K/ L 3.5-10.5 RED BLOOD CELL COUNT (BEAKER) (test buus=492) 3.74 M/ L 4.63-6.08 HEMOGLOBIN (BEAKER) (test vhql=998) 10.0 GM/DL 13.7-17.5 HEMATOCRIT (BEAKER) (test gjyp=755) 34.1 % 40.1-51.0 MEAN CORPUSCULAR VOLUME (BEAKER) (test exhk=955) 91.2 fL 79.0-92.2 MEAN CORPUSCULAR HEMOGLOBIN (BEAKER) (test 26.7 pg 25.7-32.2 tjlp=702) MEAN CORPUSCULAR HEMOGLOBIN CONC (BEAKER) (test 29.3 GM/DL 32.3-36.5 amvy=413) RED CELL DISTRIBUTION WIDTH (BEAKER) (test 19.3 % 11.6-14.4 ygbq=828) PLATELET COUNT (BEAKER) (test tniw=947) 278 K/CU MM 150-450 MEAN PLATELET VOLUME (BEAKER) (test ekyo=136) 11.4 fL 9.4-12.4 NUCLEATED RED BLOOD CELLS (BEAKER) (test 0 /100 WBC 0-0 jiju=063) NEUTROPHILS RELATIVE PERCENT (BEAKER) (test 74 % uhbc=803) LYMPHOCYTES RELATIVE PERCENT (BEAKER) (test 8 % mbjg=745) MONOCYTES RELATIVE PERCENT (BEAKER) (test 11 % iifz=857) EOSINOPHILS RELATIVE PERCENT (BEAKER) (test 5 % appw=424) BASOPHILS RELATIVE PERCENT (BEAKER) (test 0 % otbv=994) NEUTROPHILS ABSOLUTE COUNT (BEAKER) (test 11.48 K/ L 1.78-5.38 sxys=389) LYMPHOCYTES ABSOLUTE COUNT (BEAKER) (test 1.22 K/ L 1.32-3.57 komn=629) MONOCYTES ABSOLUTE COUNT (BEAKER) (test 1.68 K/ L 0.30-0.82 jpcv=262) EOSINOPHILS ABSOLUTE COUNT (BEAKER) (test 0.73 K/ L 0.04-0.54 rhvv=041) BASOPHILS ABSOLUTE COUNT (BEAKER) (test 0.06 K/ L 0.01-0.08 eynj=663) IMMATURE GRANULOCYTES-RELATIVE PERCENT (BEAKER) 2 % 0-1 (test ejsw=7140) POCT-GLUCOSE [id number] 21:09:00 Test Item Value Reference Range Comments POC-GLUCOSE METER (BEAKER) 162 mg/dL 70-110 TESTED AT [address] (test xtsn=0832) [facility] [id number] POCT-GLUCOSE [id number] 16:53:00 Test Item Value Reference Range Comments POC-GLUCOSE METER (BEAKER) 222 mg/dL 70-110 TESTED AT [address] (test ekyx=0139) [place] [id number] POCT-GLUCOSE [id number] 15:26:00 Test Item Value Reference Range Comments POC-GLUCOSE METER (BEAKER) 141 mg/dL 70-110 TESTED AT [address] (test year=8542) [place] [id number] POCT-GLUCOSE [id number] 15:04:00 Test Item Value Reference Range Comments POC-GLUCOSE METER (BEAKER) 49 mg/dL 70-110 Notified PERLA BARROW/TESTED AT [facility] (test pxhu=2186) [address] [place] [id number] RAD, CHEST, 1 VIEW, NON [id number] 13:07:00Reason for exam:->CT removalShould this be performed at the bedside?->YesFINAL REPORT EXAM: Frontal chest radiograph HISTORY PROVIDED: Chest tube removal COMPARISON: 07/11/2017 0436 IMPRESSION:The left thoracostomy tube has been removed. The right thoracostomy tube remains in place. A small right pneumothorax persists. A small left pneumothorax with tracking pleural fluid persists consistent with a hydropneumothorax, without significant change. Left basilar atelectasis/consolidation demonstrates no significant change. No significant change in the small right pleural effusion. Interstitial edema appears stable to slightly improved. Cardiomediastinal contours are stable. Signed: Williams Ramirez MDReport Verified Date/Time: 07/11/2017 13:07:52 Reading Location: [facility] Reading Room POCT-GLUCOSE [id number] 11:48:00 Test Item Value Reference Range Comments POC-GLUCOSE METER (BEAKER) 166 mg/dL 70-110 TESTED AT [address] (test qnhx=1360) [facility] [address] RAD, CHEST, 1 VIEW, NON [id number] 08:04:00Reason for exam:->s/p decorticationShould this be performed at the bedside?->YesFINAL REPORT Chest one view INDICATION: Decortication COMPARISON: 2017 IMPRESSION: The remaining support devices are stable. The bilateral pneumothoraces are grossly stable.Together with dependent pleural effusions, these suggest hydropneumothoraces. Left mid to lower lungconsolidation or atelectasis is stable. Mild pulmonary edema is similar in appearance. Trace right pleural effusion may be present. The cardiomediastinal contours are partially obscured but stable. Signed: Alexis Desai MDReport Verified Date/Time: 07/11/2017 08:04:08 Reading Location: [facility] Reading Room Electronically signed by: ALEXIS DESAI M.D. on 2017 08:04 AMPOCT-GLUCOSE [id number] 07:31:00 Test Item Value Reference Range Comments POC-GLUCOSE METER (BEAKER) 144 mg/dL 70-110 TESTED AT [place] [id number] [facility] (test sqmm=4540) [facility] [address] [id number] 06:13:00 Test Item Value Reference Range Comments PHOSPHORUS (BEAKER) (test hqhk=993) 1.7 mg/dL 2.3-4.7 [id number] 06:13:00 Test Item Value Reference Range Comments MAGNESIUM (BEAKER) (test sszl=170) 2.2 mg/dL 1.6-2.6 BASIC METABOLIC [id number] 06:13:00 Test Item Value Reference Range Comments SODIUM (BEAKER) (test 138 meq/L 136-145 raxd=108) POTASSIUM (BEAKER) (test 3.5 meq/L 3.5-5.1 vecl=870) CHLORIDE (BEAKER) (test 100 meq/L 98-107 gcsu=603) CO2 (BEAKER) (test 28 meq/L 22-29 iwgv=000) BLOOD UREA NITROGEN 15 mg/dL 7-21 (BEAKER) (test jfpy=014) CREATININE (BEAKER) (test 2.76 mg/dL 0.57-1.25 swoa=716) GLUCOSE RANDOM (BEAKER) 42 mg/dL 70-105 (test kssg=771) CALCIUM (BEAKER) (test 9.4 mg/dL 8.4-10.2 jein=273) EGFR (BEAKER) (test 26 mL/min/1.73 sq m ESTIMATED GFR IS NOT yuzk=7477) ACCURATE CREATININE CLEARANCE IN PREDICTING GLOMERULAR FILTRATION RATE. ESTIMATED GFR IS NOT APPLICABLE FOR DIALYSIS PATIENTS. POCT-GLUCOSE [id number] 06:02:00 Test Item Value Reference Range Comments POC-GLUCOSE METER (BEAKER) 94 mg/dL 70-[address] [facility] [address] [facility] (test soki=0323) [facility] [address] [id number] 06:01:00 Test Item Value Reference Range Comments PARTIAL THROMBOPLASTIN TIME (BEAKER) (test 33.5 seconds 22.5-36.0 vxzn=157) PROTHROMBIN [id number] 06:00:00 Test Item Value Reference Range Comments PROTIME (BEAKER) (test nwje=152) 15.9 seconds 11.7-14.7 INR (BEAKER) (test vpbt=177) 1.3 <=5.9 RECOMMENDED COUMADIN/WARFARIN INR THERAPY RANGESSTANDARD DOSE: 2.0 - 3.0 Includes: PROPHYLAXIS forvenous thrombosis, systemic embolization; TREATMENT for venous thrombosis and/or pulmonary embolus.HIGH RISK: Target INR is 2.5-3.5 for patients with mechanical heart valves.CBC W/PLT COUNT & AUTO [id number] 05:55:00 Test Item Value Reference Range Comments WHITE BLOOD CELL COUNT (BEAKER) (test cktr=550) 14.7 K/ L 3.5-10.5 RED BLOOD CELL COUNT (BEAKER) (test jfhp=119) 3.90 M/ L 4.63-6.08 HEMOGLOBIN (BEAKER) (test yjrn=046) 10.3 GM/DL 13.7-17.5 HEMATOCRIT (BEAKER) (test yhde=796) 33.9 % 40.1-51.0 MEAN CORPUSCULAR VOLUME (BEAKER) (test mugg=644) 86.9 fL 79.0-92.2 MEAN CORPUSCULAR HEMOGLOBIN (BEAKER) (test 26.4 pg 25.7-32.2 xwbc=819) MEAN CORPUSCULAR HEMOGLOBIN CONC (BEAKER) (test 30.4 GM/DL 32.3-36.5 xwhq=735) RED CELL DISTRIBUTION WIDTH (BEAKER) (test 18.6 % 11.6-14.4 usff=897) PLATELET COUNT (BEAKER) (test elav=913) 238 K/CU MM 150-450 MEAN PLATELET VOLUME (BEAKER) (test ugtx=876) 10.4 fL 9.4-12.4 NUCLEATED RED BLOOD CELLS (BEAKER) (test 0 /100 WBC 0-0 mgjv=660) NEUTROPHILS RELATIVE PERCENT (BEAKER) (test 72 % phhl=115) LYMPHOCYTES RELATIVE PERCENT (BEAKER) (test 6 % hwsj=511) MONOCYTES RELATIVE PERCENT (BEAKER) (test 14 % wbmq=695) EOSINOPHILS RELATIVE PERCENT (BEAKER) (test 5 % yjxw=827) BASOPHILS RELATIVE PERCENT (BEAKER) (test 1 % xqoj=551) NEUTROPHILS ABSOLUTE COUNT (BEAKER) (test 10.56 K/ L 1.78-5.38 nkpa=150) LYMPHOCYTES ABSOLUTE COUNT (BEAKER) (test 0.94 K/ L 1.32-3.57 ntvy=686) MONOCYTES ABSOLUTE COUNT (BEAKER) (test 2.03 K/ L 0.30-0.82 pgsi=397) EOSINOPHILS ABSOLUTE COUNT (BEAKER) (test 0.76 K/ L 0.04-0.54 zqia=008) BASOPHILS ABSOLUTE COUNT (BEAKER) (test 0.07 K/ L 0.01-0.08 yrrt=427) IMMATURE GRANULOCYTES-RELATIVE PERCENT (BEAKER) 2 % 0-1 (test xsfq=3144) POCT-GLUCOSE [id number] 05:36:00 Test Item Value Reference Range Comments POC-GLUCOSE METER (BEAKER) 37 mg/dL 70-110 TESTED AT [address] (test enkj=3576) [place] [address] POCT-GLUCOSE [id number] 22:37:00 Test Item Value Reference Range Comments POC-GLUCOSE METER (BEAKER) 136 mg/dL 70-110 TESTED AT [address] (test sqct=0400) [place] [address] BLOOD [id number] 18:00:00 Test Item Value Reference Range Comments CULTURE (BEAKER) (test jgfa=8291) No growth in 5 days POCT-GLUCOSE [id number] 17:39:00 Test Item Value Reference Range Comments POC-GLUCOSE METER (BEAKER) 184 mg/dL 70-110 TESTED AT [address] (test wgdm=5649) [place] [address] RAD, CHEST, 1 VIEW, NON [id number] 13:48:00Reason for exam:->s/p L ct removalShould this be performed at the bedside?->YesFINAL REPORT TECHNIQUE: Frontal chest radiograph dated 07/10/2017. CLINICAL HISTORY: S/P L CT removal COMPARISON STUDY: Chest radiograph performed earlier the same day IMPRESSION:One of two left-sided chest tubes has been removed. Right chest tube is unchanged. Right-sided pneumothorax is decreased in size. There is bilateral airspace disease. No pleural effusion. Cardiomediastinal silhouette is stable in size. No pulmonary edema. Bones are osteopenic. No fracture. Signed: Liz Ramirez Verified Date/Time: 07/10/2017 13 :48:20 Reading Location: [facility] Radiology Reading Room POCT-GLUCOSE [id number] 13 :19:00 Test Item Value Reference Range Comments POC-GLUCOSE METER (BEAKER) 193 mg/dL 70-[address] [facility] [address] [facility] (test jwdn=7055) [facility] [address] POCT-GLUCOSE [id number] 08:50:00 Test Item Value Reference Range Comments POC-GLUCOSE METER (BEAKER) 136 mg/dL 70-110 TESTED AT [address] (test nthf=9827) [facility] [address] PROTHROMBIN [id number] 04:55:00 Test Item Value Reference Range Comments PROTIME (BEAKER) (test ktqv=724) 14.7 seconds 11.7-14.7 INR (BEAKER) (test vhvm=605) 1.2 <=5.9 RECOMMENDED COUMADIN/WARFARIN INR THERAPY RANGESSTANDARD DOSE: 2.0 - 3.0 Includes: PROPHYLAXIS forvenous thrombosis, systemic embolization; TREATMENT for venous thrombosis and/or pulmonary embolus.HIGH RISK: Target INR is 2.5-3.5 for patients with mechanical heart valves.[id number] 04:55:00 Test Item Value Reference Range Comments PARTIAL THROMBOPLASTIN TIME (BEAKER) (test 36.2 seconds 22.5-36.0 lxwk=151) RAD, CHEST, 1 VIEW, NON [id number] 04:43:00Reason for exam:->s/p decorticationShould this be performed at the bedside?->YesFINAL REPORT Comparison exam: 07/09/2017 Medium-sized right pneumothorax, new when compared to the prior exam. This finding was called to the patient's nurse Lilia on 07/10/2017at 4:40 AM. She will contact the patient's physician. Stable cardiomediastinal contours. Appropriate position of the support hardware. Signed: Jamar Ley MDReport Verified Date/Time : 07/10/2017 04:43:24 Reading Location: [address] Reading Room BASIC METABOLIC [id number] 04:42:00 Test Item Value Reference Range Comments SODIUM (BEAKER) (test 128 meq/L 136-145 phkb=565) POTASSIUM (BEAKER) (test 4.9 meq/L 3.5-5.1 lsni=894) CHLORIDE (BEAKER) (test 95 meq/L 98-107 jhpi=128) CO2 (BEAKER) (test 18 meq/L 22-29 fdzv=107) BLOOD UREA NITROGEN 57 mg/dL 7-21 (BEAKER) (test malq=400) CREATININE (BEAKER) (test 6.01 mg/dL 0.57-1.25 fagy=602) GLUCOSE RANDOM (BEAKER) 172 mg/dL 70-105 (test sfpy=501) CALCIUM (BEAKER) (test 9.4 mg/dL 8.4-10.2 ubtv=041) EGFR (BEAKER) (test 10 mL/min/1.73 sq m ESTIMATED GFR IS NOT aouv=5809) ACCURATE CREATININE CLEARANCE IN PREDICTING GLOMERULAR FILTRATION RATE. ESTIMATED GFR IS NOT APPLICABLE FOR DIALYSIS PATIENTS. Check Serum Phosphorus level 4 hours after IV phosphorus replacement or 8 hours after PO replacementcompleted.[id number] 04:40:00 Test Item Value Reference Range Comments PHOSPHORUS (BEAKER) (test drkn=050) 3.9 mg/dL 2.3-4.7 Check Serum Phosphorus level 4 hours after IV phosphorus replacement or 8 hours after PO replacementcompleted.[id number] 04:40:00 Test Item Value Reference Range Comments MAGNESIUM (BEAKER) (test kmby=732) 2.6 mg/dL 1.6-2.6 Check Serum Phosphorus level 4 hours after IV phosphorus replacement or 8 hours after PO replacementcompleted.CBC W/PLT COUNT & AUTO [id number] 04:31:00 Test Item Value Reference Range Comments WHITE BLOOD CELL COUNT (BEAKER) (test rynb=518) 16.7 K/ L 3.5-10.5 RED BLOOD CELL COUNT (BEAKER) (test cwtu=009) 3.62 M/ L 4.63-6.08 HEMOGLOBIN (BEAKER) (test pjrj=121) 9.9 GM/DL 13.7-17.5 HEMATOCRIT (BEAKER) (test xdpr=752) 33.2 % 40.1-51.0 MEAN CORPUSCULAR VOLUME (BEAKER) (test pjzu=691) 91.7 fL 79.0-92.2 MEAN CORPUSCULAR HEMOGLOBIN (BEAKER) (test 27.3 pg 25.7-32.2 vdem=097) MEAN CORPUSCULAR HEMOGLOBIN CONC (BEAKER) (test 29.8 GM/DL 32.3-36.5 ddgb=973) RED CELL DISTRIBUTION WIDTH (BEAKER) (test 17.6 % 11.6-14.4 hnor=509) PLATELET COUNT (BEAKER) (test lgch=301) 230 K/CU MM 150-450 MEAN PLATELET VOLUME (BEAKER) (test kcwi=008) 10.8 fL 9.4-12.4 NUCLEATED RED BLOOD CELLS (BEAKER) (test 0 /100 WBC 0-0 scdk=017) NEUTROPHILS RELATIVE PERCENT (BEAKER) (test 70 % qmnl=611) LYMPHOCYTES RELATIVE PERCENT (BEAKER) (test 10 % slhx=185) MONOCYTES RELATIVE PERCENT (BEAKER) (test 12 % izmh=745) EOSINOPHILS RELATIVE PERCENT (BEAKER) (test 5 % ueej=693) BASOPHILS RELATIVE PERCENT (BEAKER) (test 0 % bmmw=429) NEUTROPHILS ABSOLUTE COUNT (BEAKER) (test 11.68 K/ L 1.78-5.38 mjxt=991) LYMPHOCYTES ABSOLUTE COUNT (BEAKER) (test 1.68 K/ L 1.32-3.57 anpm=317) MONOCYTES ABSOLUTE COUNT (BEAKER) (test 1.97 K/ L 0.30-0.82 ouem=054) EOSINOPHILS ABSOLUTE COUNT (BEAKER) (test 0.75 K/ L 0.04-0.54 qznp=954) BASOPHILS ABSOLUTE COUNT (BEAKER) (test 0.07 K/ L 0.01-0.08 ziqv=767) IMMATURE GRANULOCYTES-RELATIVE PERCENT (BEAKER) 4 % 0-1 (test wmle=4714) POCT-GLUCOSE [id number] 23:54:00 Test Item Value Reference Range Comments POC-GLUCOSE METER (BEAKER) 446 mg/dL 70-[address] [facility] [address] [facility] (test yzvu=4817) [facility] [address] POCT-GLUCOSE [id number] 21:41:00 Test Item Value Reference Range Comments POC-GLUCOSE METER (BEAKER) 320 mg/dL 70-110 TESTED AT [address] (test jpmq=5519) [facility] [address] POCT-GLUCOSE [id number] 18:09:00 Test Item Value Reference Range Comments POC-GLUCOSE METER (BEAKER) 320 mg/dL 70-110 Notified PERLA BARROW/TESTED AT [facility] (test cikc=5647) [address] [place], [place] [id number] RAD, CHEST, 1 VIEW, NON [id number] 14:03:00Reason for exam:->CT removalShould this be performed at the bedside?->YesFINAL REPORT Chest one view INDICATION: Chest tube removal COMPARISON: 07/09/2017 at 0553 hours IMPRESSION: 1. Of the left chest tubes has been removed. The remaining support devices are stable. A small right pneumothorax is unchanged. The left pneumothorax has redistributed or decreased. Together with dependent pleural effusions, these constitute hydropneumothoraces. Left retrocardiac consolidation or atelectasis is stable there is mild pulmonary vascular congestion with interstitial edema. The cardiomediastinal contours are partially obscured but stable. Signed: Alexis Desai MDReport Verified Date/Time: 07/09/2017 14:03:19 Reading Location: [facility] Radiology Reading Room Electronically signed by: ALEXIS DESAI M.D. on 2017 02:03 PMCBC W/PLT COUNT & AUTO [id number] 11:17:00 Test Item Value Reference Range Comments WHITE BLOOD CELL COUNT (BEAKER) (test dpax=015) 15.2 K/ L 3.5-10.5 RED BLOOD CELL COUNT (BEAKER) (test vfqj=427) 3.31 M/ L 4.63-6.08 HEMOGLOBIN (BEAKER) (test zfkl=969) 8.9 GM/DL 13.7-17.5 HEMATOCRIT (BEAKER) (test hhhp=968) 29.2 % 40.1-51.0 MEAN CORPUSCULAR VOLUME (BEAKER) (test dget=308) 88.2 fL 79.0-92.2 MEAN CORPUSCULAR HEMOGLOBIN (BEAKER) (test 26.9 pg 25.7-32.2 vbpf=497) MEAN CORPUSCULAR HEMOGLOBIN CONC (BEAKER) (test 30.5 GM/DL 32.3-36.5 amtf=715) RED CELL DISTRIBUTION WIDTH (BEAKER) (test 17.0 % 11.6-14.4 qvdq=727) PLATELET COUNT (BEAKER) (test fntv=670) 234 K/CU MM 150-450 MEAN PLATELET VOLUME (BEAKER) (test lior=179) 11.0 fL 9.4-12.4 NUCLEATED RED BLOOD CELLS (BEAKER) (test 0 /100 WBC 0-0 dgcb=246) RAD, CHEST, 1 VIEW, NON [id number] 07:40:00Reason for exam:->s/p decorticationShould this be performed at the bedside?->YesFINAL REPORT Chest one view INDICATION: Status post decortication COMPARISON:07/08/2017 IMPRESSION: Bilateral chest tubes are in place with stable small volume left greater than right sided pneumothoraces. Left greater than right pleural effusions are present. Together these suggest hydropneumothoraces. Left retrocardiac consolidation or atelectasis is stable. There is pulmonaryvascular congestion with mild interstitial edema. The cardiomediastinal contours are stable. Signed:Alexis Desai MDReport Verified Date/Time: 07/09/2017 07:40:46 Reading Location: [facility] Radiology Reading Room BLOOD GAS, [id number] 06:35:00 Test Item Value Reference Range Comments PH ARTERIAL (BEAKER) (test zwrx=486) 7.36 7.35-7.45 PCO2 ARTERIAL (BEAKER) (test vgxf=619) 46 mmHg 35-45 PO2 ARTERIAL (BEAKER) (test sxzb=809) 156 mmHg 80-90 O2 SATURATION ARTERIAL (BEAKER) (test krwo=994) 98.9 % 96.0-97.0 HCO3 ARTERIAL (BEAKER) (test vuka=086) 25 mmol/L 21-29 BASE EXCESS ARTERIAL (BEAKER) (test kdmk=383) -0.8 mmol/L -2.0-3.0 PATIENT TEMPERATURE (BEAKER) (test qnhs=4574) 37.0 C FIO2 (BEAKER) (test jacb=6574) 24.0 % [id number] 05:56:00 Test Item Value Reference Range Comments PREALBUMIN (BEAKER) (test goxj=351) 12 mg/dL 14-45 PROTHROMBIN [id number] 05:41:00 Test Item Value Reference Range Comments PROTIME (BEAKER) (test hnio=786) 15.3 seconds 11.7-14.7 INR (BEAKER) (test cmzz=651) 1.2 <=5.9 RECOMMENDED COUMADIN/WARFARIN INR THERAPY RANGESSTANDARD DOSE: 2.0 - 3.0 Includes: PROPHYLAXIS forvenous thrombosis, systemic embolization; TREATMENT for venous thrombosis and/or pulmonary embolus.HIGH RISK: Target INR is 2.5-3.5 for patients with mechanical heart valves.[id number] 05:41:00 Test Item Value Reference Range Comments PARTIAL THROMBOPLASTIN TIME (BEAKER) (test 47.6 seconds 22.5-36.0 izwf=899) BASIC METABOLIC [id number] 05:37:00 Test Item Value Reference Range Comments SODIUM (BEAKER) (test 129 meq/L 136-145 ttte=312) POTASSIUM (BEAKER) (test 4.7 meq/L 3.5-5.1 ulnl=443) CHLORIDE (BEAKER) (test 95 meq/L 98-107 oblt=868) CO2 (BEAKER) (test 22 meq/L 22-29 guor=800) BLOOD UREA NITROGEN 41 mg/dL 7-21 (BEAKER) (test hest=148) CREATININE (BEAKER) (test 4.66 mg/dL 0.57-1.25 lrpy=713) GLUCOSE RANDOM (BEAKER) 305 mg/dL 70-105 (test fpta=413) CALCIUM (BEAKER) (test 9.1 mg/dL 8.4-10.2 xrqn=492) EGFR (BEAKER) (test 14 mL/min/1.73 sq m ESTIMATED GFR IS NOT pdru=0687) ACCURATE CREATININE CLEARANCE IN PREDICTING GLOMERULAR FILTRATION RATE. ESTIMATED GFR IS NOT APPLICABLE FOR DIALYSIS PATIENTS. PROTEIN, [id number] 05:36:00 Test Item Value Reference Range Comments TOTAL PROTEIN (BEAKER) (test aeox=119) 5.9 gm/dL 6.0-8.3 [id number] 05:36:00 Test Item Value Reference Range Comments MAGNESIUM (BEAKER) (test iuhr=875) 2.5 mg/dL 1.6-2.6 [id number] 05:36:00 Test Item Value Reference Range Comments PHOSPHORUS (BEAKER) (test imix=325) 3.6 mg/dL 2.3-4.7 [id number] 05:36:00 Test Item Value Reference Range Comments ALBUMIN (BEAKER) (test otaz=5782) 2.6 g/dL 3.5-5.0 POCT-GLUCOSE [id number] 21:11:00 Test Item Value Reference Range Comments POC-GLUCOSE METER (BEAKER) 411 mg/dL 70-110 Notified PERLA BARROW/TESTED AT [facility] (test axon=4155) [address] [facility] [address] POCT-GLUCOSE [id number] 17:23:00 Test Item Value Reference Range Comments POC-GLUCOSE METER (BEAKER) 277 mg/dL 70-110 TESTED AT [place] [address] [address] (test igte=0040) [facility] [address] [id number] 15:36:00 Test Item Value Reference Range Comments MAGNESIUM (BEAKER) (test eivh=983) 2.6 mg/dL 1.6-2.6 CBC W/PLT COUNT & AUTO [id number] 12:20:00 Test Item Value Reference Range Comments WHITE BLOOD CELL COUNT (BEAKER) (test yzzg=881) 13.6 K/ L 3.5-10.5 RED BLOOD CELL COUNT (BEAKER) (test eeht=077) 3.38 M/ L 4.63-6.08 HEMOGLOBIN (BEAKER) (test vyfm=544) 9.0 GM/DL 13.7-17.5 HEMATOCRIT (BEAKER) (test olgg=186) 29.9 % 40.1-51.0 MEAN CORPUSCULAR VOLUME (BEAKER) (test mbgt=725) 88.5 fL 79.0-92.2 MEAN CORPUSCULAR HEMOGLOBIN (BEAKER) (test 26.6 pg 25.7-32.2 kiug=877) MEAN CORPUSCULAR HEMOGLOBIN CONC (BEAKER) (test 30.1 GM/DL 32.3-36.5 tera=622) RED CELL DISTRIBUTION WIDTH (BEAKER) (test 16.8 % 11.6-14.4 hljt=847) PLATELET COUNT (BEAKER) (test pffl=803) 213 K/CU MM 150-450 MEAN PLATELET VOLUME (BEAKER) (test zesh=997) 10.7 fL 9.4-12.4 NUCLEATED RED BLOOD CELLS (BEAKER) (test 0 /100 WBC 0-0 vvcd=194) POCT-GLUCOSE [id number] 11:48:00 Test Item Value Reference Range Comments POC-GLUCOSE METER (BEAKER) 255 mg/dL 70-110 TESTED AT [address] (test qfbe=9660) [facility] [address] POCT-GLUCOSE [id number] 08:25:00 Test Item Value Reference Range Comments POC-GLUCOSE METER (BEAKER) 307 mg/dL 70-110 Notified PERLA BARROW/TESTED AT [facility] (test pgnd=9517) [address] [place] [address] BLOOD GAS, [id number] 05:27:00 Test Item Value Reference Range Comments PH ARTERIAL (BEAKER) (test gsws=232) 7.39 7.35-7.45 PCO2 ARTERIAL (BEAKER) (test yrqz=460) 48 mmHg 35-45 PO2 ARTERIAL (BEAKER) (test wumh=686) 122 mmHg 80-90 O2 SATURATION ARTERIAL (BEAKER) (test dxsb=664) 98.4 % 96.0-97.0 HCO3 ARTERIAL (BEAKER) (test qmgc=825) 28 mmol/L 21-29 BASE EXCESS ARTERIAL (BEAKER) (test weus=245) 2.4 mmol/L -2.0-3.0 PATIENT TEMPERATURE (BEAKER) (test qyxf=1943) 36.5 C FIO2 (BEAKER) (test oqcv=6474) 21.0 % [id number] 05:20:00 Test Item Value Reference Range Comments PHOSPHORUS (BEAKER) (test nwwc=251) 1.3 mg/dL 2.3-4.7 BASIC METABOLIC [id number] 05:18:00 Test Item Value Reference Range Comments SODIUM (BEAKER) (test 133 meq/L 136-145 xxgt=110) POTASSIUM (BEAKER) (test 4.5 meq/L 3.5-5.1 nswd=622) CHLORIDE (BEAKER) (test 97 meq/L 98-107 jhro=021) CO2 (BEAKER) (test 25 meq/L 22-29 vavp=386) BLOOD UREA NITROGEN 20 mg/dL 7-21 (BEAKER) (test xbta=391) CREATININE (BEAKER) (test 2.87 mg/dL 0.57-1.25 ectc=481) GLUCOSE RANDOM (BEAKER) 302 mg/dL 70-105 (test vmsf=595) CALCIUM (BEAKER) (test 9.0 mg/dL 8.4-10.2 pjfh=455) EGFR (BEAKER) (test 24 mL/min/1.73 sq m ESTIMATED GFR IS NOT kcte=3675) ACCURATE CREATININE CLEARANCE IN PREDICTING GLOMERULAR FILTRATION RATE. ESTIMATED GFR IS NOT APPLICABLE FOR DIALYSIS PATIENTS. [id number] 05:17:00 Test Item Value Reference Range Comments MAGNESIUM (BEAKER) (test bsqd=947) 1.9 mg/dL 1.6-2.6 RAD, CHEST, 1 VIEW, NON [id number] 05:01:00Reason for exam:->s/p decorticationShould this be performed at the bedside?->YesFINAL REPORT Comparison exam: 07/07/2017 Small bilateral pneumothoraces. Smallstable left pleural effusion. Stable cardiomediastinal contours. Appropriate position of the support hardware. Signed: Jamar Ley Verified Date/Time: 07/08/2017 05:01:59 Reading Location: [address] Reading Room [id number] 04:53:00 Test Item Value Reference Range Comments PARTIAL THROMBOPLASTIN TIME (BEAKER) (test 50.4 seconds 22.5-36.0 yzyt=564) PROTHROMBIN [id number] 04:52:00 Test Item Value Reference Range Comments PROTIME (BEAKER) (test quuh=456) 15.8 seconds 11.7-14.7 INR (BEAKER) (test zivd=262) 1.3 <=5.9 RECOMMENDED COUMADIN/WARFARIN INR THERAPY RANGESSTANDARD DOSE: 2.0 - 3.0 Includes: PROPHYLAXIS forvenous thrombosis, systemic embolization; TREATMENT for venous thrombosis and/or pulmonary embolus.HIGH RISK: Target INR is 2.5-3.5 for patients with mechanical heart valves.ANAEROBIC [id number] 01:38:00 Test Item Value Reference Range Comments CULTURE (BEAKER) (test rasu=8613) No anaerobes isolated ANAEROBIC [id number] 01:38:00 Test Item Value Reference Range Comments CULTURE (BEAKER) (test wdza=0853) No anaerobes isolated ANAEROBIC [id number] 01:38:00 Test Item Value Reference Range Comments CULTURE (BEAKER) (test yljt=0670) No anaerobes isolated POCT-GLUCOSE [id number] 21:36:00 Test Item Value Reference Range Comments POC-GLUCOSE METER (BEAKER) 265 mg/dL 70-110 TESTED AT [address] (test jpdx=4151) [place] [id number] POCT-GLUCOSE [id number] 16:24:00 Test Item Value Reference Range Comments POC-GLUCOSE METER (BEAKER) 119 mg/dL 70-110 TESTED AT [address] (test jzbe=8896) [place] [id number] CBC W/PLT COUNT & AUTO [id number] 15:44:00 Test Item Value Reference Range Comments WHITE BLOOD CELL COUNT (BEAKER) (test isik=585) 11.8 K/ L 3.5-10.5 RED BLOOD CELL COUNT (BEAKER) (test yxly=275) 3.20 M/ L 4.63-6.08 HEMOGLOBIN (BEAKER) (test agmc=737) 8.6 GM/DL 13.7-17.5 HEMATOCRIT (BEAKER) (test gqyz=829) 29.3 % 40.1-51.0 MEAN CORPUSCULAR VOLUME (BEAKER) (test tgpz=755) 91.6 fL 79.0-92.2 MEAN CORPUSCULAR HEMOGLOBIN (BEAKER) (test 26.9 pg 25.7-32.2 jwxq=747) MEAN CORPUSCULAR HEMOGLOBIN CONC (BEAKER) (test 29.4 GM/DL 32.3-36.5 jnfs=763) RED CELL DISTRIBUTION WIDTH (BEAKER) (test 17.0 % 11.6-14.4 oliw=021) PLATELET COUNT (BEAKER) (test rjmw=366) 257 K/CU MM 150-450 MEAN PLATELET VOLUME (BEAKER) (test aecv=513) 10.8 fL 9.4-12.4 NUCLEATED RED BLOOD CELLS (BEAKER) (test 0 /100 WBC 0-0 hcwc=003) POCT-GLUCOSE [id number] 12:13:00 Test Item Value Reference Range Comments POC-GLUCOSE METER (BEAKER) 195 mg/dL 70-110 TESTED AT [address] (test ozlj=7609) [place] [id number] POCT-GLUCOSE [id number] 09:31:00 Test Item Value Reference Range Comments POC-GLUCOSE METER (BEAKER) 76 mg/dL 70-110 TESTED AT [address] (test xecy=2885) [place] [id number] POCT-GLUCOSE [id number] 09:12:00 Test Item Value Reference Range Comments POC-GLUCOSE METER (BEAKER) 60 mg/dL 70-110 Will Repeat Test/TESTED AT (test dvte=3320) [address] [id number] BLOOD GAS, [id number] 06:33:00 Test Item Value Reference Range Comments PH ARTERIAL (BEAKER) (test oqas=005) 7.38 7.35-7.45 PCO2 ARTERIAL (BEAKER) (test yahz=384) 47 mmHg 35-45 PO2 ARTERIAL (BEAKER) (test mlrc=382) 171 mmHg 80-90 O2 SATURATION ARTERIAL (BEAKER) (test lifs=420) 99.1 % 96.0-97.0 HCO3 ARTERIAL (BEAKER) (test grjw=738) 28 mmol/L 21-29 BASE EXCESS ARTERIAL (BEAKER) (test jgev=808) 2.1 mmol/L -2.0-3.0 PATIENT TEMPERATURE (BEAKER) (test kzis=9563) 37.0 C FIO2 (BEAKER) (test dyaa=9697) 28.0 % [id number] 06:10:00 Test Item Value Reference Range Comments PARTIAL THROMBOPLASTIN TIME (BEAKER) (test 47.3 seconds 22.5-36.0 kclx=777) PROTHROMBIN TIME/[id number] 06:09:00 Test Item Value Reference Range Comments PROTIME (BEAKER) (test nytn=804) 14.6 seconds 11.7-14.7 INR (BEAKER) (test kuwh=306) 1.1 <=5.9 RECOMMENDED COUMADIN/WARFARIN INR THERAPY RANGESSTANDARD DOSE: 2.0 - 3.0 Includes: PROPHYLAXIS forvenous thrombosis, systemic embolization; TREATMENT for venous thrombosis and/or pulmonary embolus.HIGH RISK: Target INR is 2.5-3.5 for patients with mechanical heart valves.BASIC METABOLIC [id number] 05:54: 00 Test Item Value Reference Range Comments SODIUM (BEAKER) (test 139 meq/L 136-145 nkks=879) POTASSIUM (BEAKER) (test 3.9 meq/L 3.5-5.1 ilsr=386) CHLORIDE (BEAKER) (test 103 meq/L 98-107 dvhr=918) CO2 (BEAKER) (test 26 meq/L 22-29 dcla=546) BLOOD UREA NITROGEN 39 mg/dL 7-21 (BEAKER) (test cofu=943) CREATININE (BEAKER) (test 4.62 mg/dL 0.57-1.25 ybap=907) GLUCOSE RANDOM (BEAKER) 86 mg/dL 70-105 (test cnkf=425) CALCIUM (BEAKER) (test 9.1 mg/dL 8.4-10.2 jusl=908) EGFR (BEAKER) (test 14 mL/min/1.73 sq m ESTIMATED GFR IS NOT vcah=3831) ACCURATE CREATININE CLEARANCE IN PREDICTING GLOMERULAR FILTRATION RATE. ESTIMATED GFR IS NOT APPLICABLE FOR DIALYSIS PATIENTS. [id number] 05:52:00 Test Item Value Reference Range Comments PHOSPHORUS (BEAKER) (test nefx=834) 2.0 mg/dL 2.3-4.7 [id number] 05:52:00 Test Item Value Reference Range Comments MAGNESIUM (BEAKER) (test skid=884) 2.3 mg/dL 1.6-2.6 RAD, CHEST, 1 VIEW, NON [id number] 04:34:00Reason for exam:->s/p decorticationShould this be performed at the bedside?->YesFINAL REPORT Comparison exam: 07/06/2017 Interval improvement in the right pneumothorax. Small bilateral pneumothoraces remain. Left lower lobe atelectasis/consolidation, unchanged. Stable cardiomediastinal contours. Appropriate position of the support hardware. Signed: Jamar Ley Verified Date/Time: 07/07/2017 04:34:32 Reading Location: [address] Reading Room POCT-GLUCOSE [id number] 00:10:00 Test Item Value Reference Range Comments POC-GLUCOSE METER (BEAKER) 202 mg/dL 70-110 TESTED AT [address] (test cthk=0255) [facility] [address] POCT-GLUCOSE [id number] 18:01:00 Test Item Value Reference Range Comments POC-GLUCOSE METER (BEAKER) 364 mg/dL 70-110 TESTED AT [address] (test hwqy=1953) [facility] [address] RAD, CHEST, 1 VIEW, NON [id number] 14:24:00Reason for exam:->R CT to water sealShould this be performed at the bedside?->YesFINAL REPORT EXAM: Frontal chest radiograph HISTORY PROVIDED: Right chest tube to waterseal COMPARISON: 07/06/2017 at 0554 IMPRESSION:Bilateral thoracostomy tubes are in place. Theright pneumothorax has increased and is now small to moderate. Small left pneumothorax with suspected basilar component is similar. Retrocardiac opacity likely represents a combination of small left pleural effusion and atelectasis/consolidation. Pulmonary vascular congestion and interstitial opacities suggest edema. Cardiomediastinal contours are stable and partially obscured. Signed: Williams Ramirez Verified Date/Time: 07/06/2017 14:24:47 Reading Location: [facility] POCT-GLUCOSE [id number] 12:18 :00 Test Item Value Reference Range Comments POC-GLUCOSE METER (BEAKER) 254 mg/dL 70-[address] [facility] [address] [facility] (test oniy=9492) [facility] [address] CBC W/PLT COUNT & AUTO [id number] 11:25:00 Test Item Value Reference Range Comments WHITE BLOOD CELL COUNT (BEAKER) (test hyqb=011) 13.3 K/ L 3.5-10.5 RED BLOOD CELL COUNT (BEAKER) (test cqub=133) 3.07 M/ L 4.63-6.08 HEMOGLOBIN (BEAKER) (test nyyg=975) 8.2 GM/DL 13.7-17.5 HEMATOCRIT (BEAKER) (test uitb=315) 27.2 % 40.1-51.0 MEAN CORPUSCULAR VOLUME (BEAKER) (test sqzd=005) 88.6 fL 79.0-92.2 MEAN CORPUSCULAR HEMOGLOBIN (BEAKER) (test 26.7 pg 25.7-32.2 jqyq=807) MEAN CORPUSCULAR HEMOGLOBIN CONC (BEAKER) (test 30.1 GM/DL 32.3-36.5 bvhi=599) RED CELL DISTRIBUTION WIDTH (BEAKER) (test 16.9 % 11.6-14.4 useq=896) PLATELET COUNT (BEAKER) (test ftar=740) 235 K/CU MM 150-450 MEAN PLATELET VOLUME (BEAKER) (test mbxd=508) 10.5 fL 9.4-12.4 NUCLEATED RED BLOOD CELLS (BEAKER) (test 0 /100 WBC 0-0 ptrg=668) RAD, CHEST, 1 VIEW, NON [id number] 07:44:00Reason for exam:->s/p decorticationShould this be performed at the bedside?->YesFINAL REPORT Chest one view compared to July 05 Discussion: Small upper chest pneumothoraces are grossly similar. Bilateral chest tubes in place. Left effusion and ill-defined left lung airspace opacities are noted. Mild pulmonary congestion. IMPRESSIONS: No change Signed: Nisbet, Cata MDReport Verified Date/Time: 07/06/2017 07:44:08 Reading Location: [facility] Reading Room Electronically signed by: CATA MONTANO M.D. on 02/2017 07:44 AMPOCT-GLUCOSE [id number] 06:46:00 Test Item Value Reference Range Comments POC-GLUCOSE METER (BEAKER) 123 mg/dL 70-[address] [facility] [address] [facility] (test buro=3839) [facility] [address] BASIC METABOLIC [id number] 05:13:00 Test Item Value Reference Range Comments SODIUM (BEAKER) (test 140 meq/L 136-145 vwhu=156) POTASSIUM (BEAKER) (test 4.0 meq/L 3.5-5.1 yvyl=666) CHLORIDE (BEAKER) (test 104 meq/L 98-107 wcnn=375) CO2 (BEAKER) (test 27 meq/L 22-29 cpre=401) BLOOD UREA NITROGEN 16 mg/dL 7-21 (BEAKER) (test hqyu=476) CREATININE (BEAKER) (test 2.62 mg/dL 0.57-1.25 pcoy=054) GLUCOSE RANDOM (BEAKER) 115 mg/dL 70-105 (test brhs=607) CALCIUM (BEAKER) (test 9.6 mg/dL 8.4-10.2 xnoz=613) EGFR (BEAKER) (test 27 mL/min/1.73 sq m ESTIMATED GFR IS NOT zktk=3617) ACCURATE CREATININE CLEARANCE IN PREDICTING GLOMERULAR FILTRATION RATE. ESTIMATED GFR IS NOT APPLICABLE FOR DIALYSIS PATIENTS. [id number] 05:08:00 Test Item Value Reference Range Comments PHOSPHORUS (BEAKER) (test xsjq=732) 1.7 mg/dL 2.3-4.7 [id number] 05:08:00 Test Item Value Reference Range Comments MAGNESIUM (BEAKER) (test hpmg=197) 2.1 mg/dL 1.6-2.6 BLOOD GAS, [id number] 05:04:00 Test Item Value Reference Range Comments PH ARTERIAL (BEAKER) (test uqma=597) 7.53 7.35-7.45 PCO2 ARTERIAL (BEAKER) (test qrcr=516) 35 mmHg 35-45 PO2 ARTERIAL (BEAKER) (test qzqf=224) 203 mmHg 80-90 O2 SATURATION ARTERIAL (BEAKER) (test aluj=792) 99.5 % 96.0-97.0 HCO3 ARTERIAL (BEAKER) (test moqr=651) 29 mmol/L 21-29 BASE EXCESS ARTERIAL (BEAKER) (test uxfx=948) 5.6 mmol/L -2.0-3.0 PATIENT TEMPERATURE (BEAKER) (test wbcx=4112) 37.0 C FIO2 (BEAKER) (test mdai=5082) 30.0 % [id number] 04:42:00 Test Item Value Reference Range Comments PARTIAL THROMBOPLASTIN TIME (BEAKER) (test 45.3 seconds 22.5-36.0 cyst=630) PROTHROMBIN TIME/[id number] 04:41:00 Test Item Value Reference Range Comments PROTIME (BEAKER) (test jvnj=627) 14.6 seconds 11.7-14.7 INR (BEAKER) (test zgxa=604) 1.1 <=5.9 RECOMMENDED COUMADIN/WARFARIN INR THERAPY RANGESSTANDARD DOSE: 2.0 - 3.0 Includes: PROPHYLAXIS forvenous thrombosis, systemic embolization; TREATMENT for venous thrombosis and/or pulmonary embolus.HIGH RISK: Target INR is 2.5-3.5 for patients with mechanical heart valves.POCT-GLUCOSE [id number] 00:15:00 Test Item Value Reference Range Comments POC-GLUCOSE METER (BEAKER) 122 mg/dL 70-[address] [facility] [address] [facility] (test lpfw=2478) [facility] [address] URINALYSIS W/ REFLEX URINE [id number] 23:02:00 Test Item Value Reference Range Comments COLOR (BEAKER) (test dbku=735) Yellow CLARITY (BEAKER) (test nhlj=921) Hazy SPECIFIC GRAVITY UA (BEAKER) (test juzs=712) 1.016 1.001-1.035 PH UA (BEAKER) (test qmxf=181) 6.5 5.0-8.0 PROTEIN UA (BEAKER) (test uziw=603) 600 mg/dL Negative GLUCOSE UA (BEAKER) (test ualx=467) 500 mg/dL Negative KETONES UA (BEAKER) (test boug=229) Negative Negative BILIRUBIN UA (BEAKER) (test caui=551) Negative Negative BLOOD UA (BEAKER) (test kkhd=245) Negative Negative NITRITE UA (BEAKER) (test oemw=859) Negative Negative LEUKOCYTE ESTERASE UA (BEAKER) (test eepd=392) Negative Negative UROBILINOGEN UA (BEAKER) (test zmdw=705) 0.2 mg/dL 0.2-1.0 RBC UA (BEAKER) (test zgxx=535) 4 /HPF WBC UA (BEAKER) (test gqbn=216) 2 /HPF BACTERIA (BEAKER) (test usht=270) Occasional SOURCE(BEAKER) (test hjog=9519) RAD, CHEST, 1 VIEW, NON [id number] 20:06:00Reason for exam:-> hypoxiaShould this be performed at the bedside?->YesFINAL REPORT Comparison exam: 07/05/2017 time 6:14 AM Small bilateral pneumothoraces, improved on the left when compared to the prior exam. Stable cardiomediastinal contours. Appropriate position of the support hardware. Signed: Jamar Ley [facility] Verified Date/Time:07/05/2017 20:06:44 Reading Location: [address] Reading Room TISSUE [id number] 19:06: 00Surgical Pathology Report Case: [id number] Authorizing Provider: Guillermo Snow MD Collected : 06/30/2017 1118 Ordering Location: [address] Received: 07/03/2017 0751 Service Pathologist: Frantz Ruiz MD Specimens: A) - Lung, Left Lower Lobe, Left lower lobe peel B) -Lung, Left Upper Lobe, Left upper lobe peel A. LUNG, LEFT LOWER LOBE, PLEURAL DECORTICATION: - ORGANIZING PLEURITIS - NEGATIVE FOR MALIGNANCYB. LUNG, LEFT LOWER LOBE, PLEURAL DECORTICATION: - ORGANIZING PLEURITIS - NEGATIVE FOR MALIGNANCY Signing Pathologist Direct Phone Line: [phone] signed by Frantz Ruiz MD on 07/05/2017 at 7:06 [id number] pleural effusionA. Left lower lobe peel; B. Left upper lobe peelThe specimen is received in two containers of formalin both labeled with the patient's information. Specimen A labeled "left lower lobe peel" consists of two fragments of off white fibromembranous tissue measuring 3 x 1 x1 cm. Tissue is sectioned further and submitted entirely A1 and A2. Specimen B labeled "left upper lobe peel" consists of hemorrhagic fibromembranous tissue measuring 2.5 x 2 x 0.4 cm. The specimen is sectioned, submitted entirely B1 to B3. CG/pl Performed.BLOOD GAS, [id number] 17:59:00 Test Item Value Reference Range Comments PH ARTERIAL (BEAKER) (test ljng=292) 7.37 7.35-7.45 PCO2 ARTERIAL (BEAKER) (test rusy=272) 47 mmHg 35-45 PO2 ARTERIAL (BEAKER) (test opdc=829) 60 mmHg 80-90 O2 SATURATION ARTERIAL (BEAKER) (test kpuy=878) 91.7 % 96.0-97.0 HCO3 ARTERIAL (BEAKER) (test ntyz=875) 27 mmol/L 21-29 BASE EXCESS ARTERIAL (BEAKER) (test kqwz=711) 1.2 mmol/L -2.0-3.0 PATIENT TEMPERATURE (BEAKER) (test qbdl=9730) 35.8 C FIO2 (BEAKER) (test nnxv=9286) 30.0 % POCT-GLUCOSE [id number] 17:50:00 Test Item Value Reference Range Comments POC-GLUCOSE METER (BEAKER) 198 mg/dL 70-[address] [facility] [address] [facility] (test pkmd=7013) [place] [id number] POCT-GLUCOSE [id number] 13:56:00 Test Item Value Reference Range Comments POC-GLUCOSE METER (BEAKER) 204 mg/dL 70-[address] [facility] [address] [facility] (test igkj=5108) [facility] [address] ANAEROBIC [id number] 11:01:00 Test Item Value Reference Range Comments CULTURE (BEAKER) (test irmm=1561) No anaerobes isolated ANAEROBIC [id number] 11:01:00 Test Item Value Reference Range Comments CULTURE (BEAKER) (test adui=6442) No anaerobes isolated ANAEROBIC [id number] 11:01:00 Test Item Value Reference Range Comments CULTURE (BEAKER) (test mfpd=4128) No anaerobes isolated ANAEROBIC [id number] 11:00:00 Test Item Value Reference Range Comments CULTURE (BEAKER) (test egbo=9013) No anaerobes isolated RAD, CHEST, 1 VIEW, NON [id number] 09:47:00Reason for exam:->s/p decorticationShould this be performed at the bedside?->YesFINAL REPORT Chest one view compared to July 04 Discussion: On the right thereis pulmonary mild congestion. Right-sided chest tube is in place with small right-sided pneumothoraxdiminished in volume since the previous study. Left-sided chest tubes are in place. The visceral pleura is not well seen but I do suspect a left-sided hydropneumothorax. It is difficult to determine whether left lung aeration is changed. There is confluent retrocardiac and perihilar opacity overall similar. Signed: Cata Montano Verified Date/Time: 07/05/2017 09:47:43 Reading Location: [facility] Radiology Reading Room POCT-GLUCOSE [id number] 09:41:00 Test Item Value Reference Range Comments POC-GLUCOSE METER (BEAKER) 338 mg/dL 70-110 Notified PERLA BARROW/TESTED AT [facility] (test nzqs=9000) [address] [facility] [address] CBC W/PLT COUNT & AUTO [id number] 06:31:00 Test Item Value Reference Range Comments WHITE BLOOD CELL COUNT (BEAKER) (test zdvh=839) 17.6 K/ L 3.5-10.5 RED BLOOD CELL COUNT (BEAKER) (test tfnz=953) 3.16 M/ L 4.63-6.08 HEMOGLOBIN (BEAKER) (test dbwj=364) 8.4 GM/DL 13.7-17.5 HEMATOCRIT (BEAKER) (test rzzt=592) 28.7 % 40.1-51.0 MEAN CORPUSCULAR VOLUME (BEAKER) (test eiub=638) 90.8 fL 79.0-92.2 MEAN CORPUSCULAR HEMOGLOBIN (BEAKER) (test 26.6 pg 25.7-32.2 eevr=467) MEAN CORPUSCULAR HEMOGLOBIN CONC (BEAKER) (test 29.3 GM/DL 32.3-36.5 fvnv=636) RED CELL DISTRIBUTION WIDTH (BEAKER) (test 17.2 % 11.6-14.4 ptyz=366) PLATELET COUNT (BEAKER) (test seta=164) 272 K/CU MM 150-450 MEAN PLATELET VOLUME (BEAKER) (test jcrm=405) 11.4 fL 9.4-12.4 NUCLEATED RED BLOOD CELLS (BEAKER) (test 0 /100 WBC 0-0 dmvh=863) NEUTROPHILS RELATIVE PERCENT (BEAKER) (test 84 % wvei=742) LYMPHOCYTES RELATIVE PERCENT (BEAKER) (test 4 % wmqc=443) MONOCYTES RELATIVE PERCENT (BEAKER) (test 9 % ruij=105) EOSINOPHILS RELATIVE PERCENT (BEAKER) (test 2 % amyk=228) BASOPHILS RELATIVE PERCENT (BEAKER) (test 0 % flii=039) NEUTROPHILS ABSOLUTE COUNT (BEAKER) (test 14.81 K/ L 1.78-5.38 ypvr=102) LYMPHOCYTES ABSOLUTE COUNT (BEAKER) (test 0.62 K/ L 1.32-3.57 lzfi=650) MONOCYTES ABSOLUTE COUNT (BEAKER) (test 1.57 K/ L 0.30-0.82 sizp=118) EOSINOPHILS ABSOLUTE COUNT (BEAKER) (test 0.31 K/ L 0.04-0.54 gbfh=690) BASOPHILS ABSOLUTE COUNT (BEAKER) (test 0.07 K/ L 0.01-0.08 fnmc=869) IMMATURE GRANULOCYTES-RELATIVE PERCENT (BEAKER) 1 % 0-1 (test yoik=8811) [id number] 06:04:00 Test Item Value Reference Range Comments PROTIME (BEAKER) (test sidd=033) 15.6 seconds 11.7-14.7 INR (BEAKER) (test gyyc=232) 1.2 <=5.9 PARTIAL THROMBOPLASTIN TIME (BEAKER) (test 55.5 seconds 22.5-36.0 wrxd=604) RECOMMENDED COUMADIN/WARFARIN INR THERAPY RANGESSTANDARD DOSE: 2.0 - 3.0 Includes: PROPHYLAXIS forvenous thrombosis, systemic embolization; TREATMENT for venous thrombosis and/or pulmonary embolus.HIGH RISK: Target INR is 2.5-3.5 for patients with mechanical heart valves.BASIC METABOLIC [id number] 05:44: 00 Test Item Value Reference Range Comments SODIUM (BEAKER) (test 140 meq/L 136-145 lhgy=340) POTASSIUM (BEAKER) (test 4.6 meq/L 3.5-5.1 uchx=051) CHLORIDE (BEAKER) (test 101 meq/L 98-107 znax=681) CO2 (BEAKER) (test 24 meq/L 22-29 wxod=766) BLOOD UREA NITROGEN 46 mg/dL 7-21 (BEAKER) (test kwxu=297) CREATININE (BEAKER) (test 6.35 mg/dL 0.57-1.25 pvpi=707) GLUCOSE RANDOM (BEAKER) 251 mg/dL 70-105 (test gynm=859) CALCIUM (BEAKER) (test 8.2 mg/dL 8.4-10.2 icjz=885) EGFR (BEAKER) (test 10 mL/min/1.73 sq m ESTIMATED GFR IS NOT arri=0510) ACCURATE CREATININE CLEARANCE IN PREDICTING GLOMERULAR FILTRATION RATE. ESTIMATED GFR IS NOT APPLICABLE FOR DIALYSIS PATIENTS. [id number] 05:22:00 Test Item Value Reference Range Comments PARTIAL THROMBOPLASTIN TIME (BEAKER) (test > seconds 22.5-36.0 laiu=810) [id number] 05:12:00 Test Item Value Reference Range Comments PHOSPHORUS (BEAKER) (test ckfu=725) 6.1 mg/dL 2.3-4.7 [id number] 05:12:00 Test Item Value Reference Range Comments MAGNESIUM (BEAKER) (test dbbo=383) 2.3 mg/dL 1.6-2.6 PROTHROMBIN TIME/[id number] 05:00:00 Test Item Value Reference Range Comments PROTIME (BEAKER) (test gnji=194) 17.6 seconds 11.7-14.7 INR (BEAKER) (test sxbn=444) 1.5 <=5.9 RECOMMENDED COUMADIN/WARFARIN INR THERAPY RANGESSTANDARD DOSE: 2.0 - 3.0 Includes: PROPHYLAXIS forvenous thrombosis, systemic embolization; TREATMENT for venous thrombosis and/or pulmonary embolus.HIGH RISK: Target INR is 2.5-3.5 for patients with mechanical heart valves.BLOOD GAS, [id number] 04:49:00 Test Item Value Reference Range Comments PH ARTERIAL (BEAKER) (test cjkl=188) 7.33 7.35-7.45 PCO2 ARTERIAL (BEAKER) (test svab=918) 51 mmHg 35-45 PO2 ARTERIAL (BEAKER) (test jreg=000) 158 mmHg 80-90 O2 SATURATION ARTERIAL (BEAKER) (test jdjo=075) 98.9 % 96.0-97.0 HCO3 ARTERIAL (BEAKER) (test hnql=387) 26 mmol/L 21-29 BASE EXCESS ARTERIAL (BEAKER) (test chlt=675) -0.1 mmol/L -2.0-3.0 PATIENT TEMPERATURE (BEAKER) (test bmzp=7357) 37.0 C FIO2 (BEAKER) (test uvis=9845) 28.0 % POCT-GLUCOSE [id number] 21:51:00 Test Item Value Reference Range Comments POC-GLUCOSE METER (BEAKER) 292 mg/dL 70-110 TESTED AT [address] (test pzvc=8771) [place] [id number] POCT-GLUCOSE [id number] 18:49:00 Test Item Value Reference Range Comments POC-GLUCOSE METER (BEAKER) 248 mg/dL 70-110 TESTED AT [address] (test ehhx=1698) [facility] [address] RAD, CHEST, 1 VIEW, NON [id number] 14:39:00Reason for exam:->eval pneumo , suction to -10cmShould this be performed at the bedside?->YesFINAL REPORT Chest one view compared to July 04, 2017 Discussion: There are bilateral chest tubes. A right-sided pneumothorax is small, diminished in volume since the previous study. A left-sided pneumothorax is small and similar in appearance to the prior study. Confluent airspace opacity seen in the retrocardiac left low lung. Signed: Cata Montano Verified Date/Time:07/04/2017 14:39:09 Reading Location: [facility] B1 C013W Consult Reading Room POCT-GLUCOSE [id number] 13:28:00 Test Item Value Reference Range Comments POC-GLUCOSE METER (BEAKER) 278 mg/dL 70-110 TESTED AT [address] (test uyeu=6999) [facility] [address] BLOOD GAS, [id number] 09:41:00 Test Item Value Reference Range Comments PH ARTERIAL (BEAKER) (test lmrc=320) 7.30 7.35-7.45 PCO2 ARTERIAL (BEAKER) (test edjd=110) 56 mmHg 35-45 PO2 ARTERIAL (BEAKER) (test haxr=372) 110 mmHg 80-90 O2 SATURATION ARTERIAL (BEAKER) (test fjxy=611) 97.4 % 96.0-97.0 HCO3 ARTERIAL (BEAKER) (test umiu=425) 27 mmol/L 21-29 BASE EXCESS ARTERIAL (BEAKER) (test lhha=183) -0.3 mmol/L -2.0-3.0 PATIENT TEMPERATURE (BEAKER) (test tsxf=6020) 37.0 C FIO2 (BEAKER) (test bxef=5005) 28.0 % POCT-GLUCOSE [id number] 09:16:00 Test Item Value Reference Range Comments POC-GLUCOSE METER (BEAKER) 161 mg/dL 70-110 TESTED AT [address] (test jdov=1206) [place] [address] RAD, CHEST, 1 VIEW, NON [id number] 09:13:00Reason for exam:->s/p decorticationShould this be performed at the bedside?->YesFINAL REPORT Chest one view compared to July 03 Discussion: There are persistent bilateral pneumothoraces, small to moderate on both sides with bilateral chest tubes in place. Theright-sided pneumothorax may have minimally increased in volume. Confluent left retrocardiac lung opacity is similar. Mild pulmonary congestion unchanged. Signed: Cata Montano Verified Date/Time : 07/04/2017 09:13:48 Reading Location: [facility] Radiology Reading Room BLOOD GAS, [id number] 04:33:00 Test Item Value Reference Range Comments PH ARTERIAL (BEAKER) (test zjrv=831) 7.30 7.35-7.45 PCO2 ARTERIAL (BEAKER) (test czin=734) 57 mmHg 35-45 PO2 ARTERIAL (BEAKER) (test kkht=639) 97 mmHg 80-90 O2 SATURATION ARTERIAL (BEAKER) (test eomu=097) 96.6 % 96.0-97.0 HCO3 ARTERIAL (BEAKER) (test wxzg=401) 27 mmol/L 21-29 BASE EXCESS ARTERIAL (BEAKER) (test aqmq=117) 0.3 mmol/L -2.0-3.0 PATIENT TEMPERATURE (BEAKER) (test enzm=5503) 37.0 C FIO2 (BEAKER) (test rqcg=6484) 28.0 % BASIC METABOLIC [id number] 04:18:00 Test Item Value Reference Range Comments SODIUM (BEAKER) (test 142 meq/L 136-145 mwxp=268) POTASSIUM (BEAKER) (test 4.9 meq/L 3.5-5.1 vpnt=294) CHLORIDE (BEAKER) (test 101 meq/L 98-107 hhil=480) CO2 (BEAKER) (test 25 meq/L 22-29 wgiw=021) BLOOD UREA NITROGEN 24 mg/dL 7-21 (BEAKER) (test vwvi=553) CREATININE (BEAKER) (test 4.57 mg/dL 0.57-1.25 twhr=654) GLUCOSE RANDOM (BEAKER) 152 mg/dL 70-105 (test mpfb=746) CALCIUM (BEAKER) (test 8.9 mg/dL 8.4-10.2 qgfp=686) EGFR (BEAKER) (test 14 mL/min/1.73 sq m ESTIMATED GFR IS NOT mhal=7986) ACCURATE CREATININE CLEARANCE IN PREDICTING GLOMERULAR FILTRATION RATE. ESTIMATED GFR IS NOT APPLICABLE FOR DIALYSIS PATIENTS. [id number] 04:15:00 Test Item Value Reference Range Comments PHOSPHORUS (BEAKER) (test ctbl=451) 6.5 mg/dL 2.3-4.7 [id number] 04:15:00 Test Item Value Reference Range Comments MAGNESIUM (BEAKER) (test vasd=128) 2.2 mg/dL 1.6-2.6 CBC W/PLT COUNT & AUTO [id number] 04:10:00 Test Item Value Reference Range Comments WHITE BLOOD CELL COUNT (BEAKER) (test gtzh=148) 18.0 K/ L 3.5-10.5 RED BLOOD CELL COUNT (BEAKER) (test xasd=658) 3.44 M/ L 4.63-6.08 HEMOGLOBIN (BEAKER) (test rtfj=656) 9.2 GM/DL 13.7-17.5 HEMATOCRIT (BEAKER) (test mzzp=206) 31.5 % 40.1-51.0 MEAN CORPUSCULAR VOLUME (BEAKER) (test huik=053) 91.6 fL 79.0-92.2 MEAN CORPUSCULAR HEMOGLOBIN (BEAKER) (test 26.7 pg 25.7-32.2 hdyj=233) MEAN CORPUSCULAR HEMOGLOBIN CONC (BEAKER) (test 29.2 GM/DL 32.3-36.5 zeun=062) RED CELL DISTRIBUTION WIDTH (BEAKER) (test 17.5 % 11.6-14.4 zvwy=206) PLATELET COUNT (BEAKER) (test txmj=403) 261 K/CU MM 150-450 MEAN PLATELET VOLUME (BEAKER) (test sfrq=914) 11.8 fL 9.4-12.4 NUCLEATED RED BLOOD CELLS (BEAKER) (test 0 /100 WBC 0-0 wxtb=326) NEUTROPHILS RELATIVE PERCENT (BEAKER) (test 88 % fwzp=227) LYMPHOCYTES RELATIVE PERCENT (BEAKER) (test 4 % tmro=995) MONOCYTES RELATIVE PERCENT (BEAKER) (test 8 % gtam=309) EOSINOPHILS RELATIVE PERCENT (BEAKER) (test 0 % vrwu=308) BASOPHILS RELATIVE PERCENT (BEAKER) (test 0 % wgtd=920) NEUTROPHILS ABSOLUTE COUNT (BEAKER) (test 15.84 K/ L 1.78-5.38 poru=440) LYMPHOCYTES ABSOLUTE COUNT (BEAKER) (test 0.63 K/ L 1.32-3.57 fwxu=160) MONOCYTES ABSOLUTE COUNT (BEAKER) (test 1.36 K/ L 0.30-0.82 oydt=262) EOSINOPHILS ABSOLUTE COUNT (BEAKER) (test 0.05 K/ L 0.04-0.54 uein=776) BASOPHILS ABSOLUTE COUNT (BEAKER) (test 0.05 K/ L 0.01-0.08 cnxy=732) IMMATURE GRANULOCYTES-RELATIVE PERCENT (BEAKER) 1 % 0-1 (test wgdo=0408) [id number] 04:10:00 Test Item Value Reference Range Comments PARTIAL THROMBOPLASTIN TIME (BEAKER) (test 54.7 seconds 22.5-36.0 tzta=832) PROTHROMBIN TIME/[id number] 04:08:00 Test Item Value Reference Range Comments PROTIME (BEAKER) (test vxmr=986) 17.5 seconds 11.7-14.7 INR (BEAKER) (test ptej=089) 1.4 <=5.9 RECOMMENDED COUMADIN/WARFARIN INR THERAPY RANGESSTANDARD DOSE: 2.0 - 3.0 Includes: PROPHYLAXIS forvenous thrombosis, systemic embolization; TREATMENT for venous thrombosis and/or pulmonary embolus.HIGH RISK: Target INR is 2.5-3.5 for patients with mechanical heart valves.POCT-GLUCOSE [id number] 22:23:00 Test Item Value Reference Range Comments POC-GLUCOSE METER (BEAKER) 125 mg/dL 70-[address] [facility] [address] [facility] (test pgvf=2243) [facility] [address] POCT-GLUCOSE [id number] 18:19:00 Test Item Value Reference Range Comments POC-GLUCOSE METER (BEAKER) 95 mg/dL 70-110 TESTED AT [place] [id number] [facility] (test ewnu=0450) [facility] [address] RAD, CHEST, 1 VIEW, NON [id number] 17:14:00Reason for exam:->CT to water seal, extubationShould this be performed at the bedside?->YesFINAL REPORT TECHNIQUE: Frontal chest radiograph dated 07/03/2017. CLINICAL HISTORY: Chest tube to waterseal COMPARISON STUDY: Chest radiograph performed earlier the same day IMPRESSION:Endotracheal tube and enteric tubes have been removed. Bilateral chest tubes are in place. There are stable bilateral pneumothoraces. Atelectasis is again seen in the left upper lobe. Lungs are clear. No pleural effusion. Cardiomediastinal silhouette is stable in size. No pulmonary edema. No fracture. Signed: Liz Ramirez Verified Date/Time: 07/03/2017 17:14:23 Reading Location: [facility] Radiology Reading Room Electronically signed by: LIZ RAMIREZ on 2017 05:14 PMBLOOD GAS, [id number] 14:24:00 Test Item Value Reference Range Comments PH ARTERIAL (BEAKER) (test hnzo=519) 7.39 7.35-7.45 PCO2 ARTERIAL (BEAKER) (test ishm=198) 49 mmHg 35-45 PO2 ARTERIAL (BEAKER) (test xysg=518) 191 mmHg 80-90 O2 SATURATION ARTERIAL (BEAKER) (test zirm=304) 99.3 % 96.0-97.0 HCO3 ARTERIAL (BEAKER) (test mgmv=674) 29 mmol/L 21-29 BASE EXCESS ARTERIAL (BEAKER) (test ukkm=014) 3.6 mmol/L -2.0-3.0 PATIENT TEMPERATURE (BEAKER) (test tqrr=9980) 36.8 C FIO2 (BEAKER) (test rham=7580) 40.0 % ANAEROBIC [id number] 14:03:00 Test Item Value Reference Range Comments CULTURE (BEAKER) (test bkyb=8101) No anaerobes isolated SURGICALLY OBTAINED CULTURE + GRAM [id number] 13:40:00 Test Item Value Reference Range Comments CULTURE (BEAKER) (test COAGULASE NEGATIVE 1+ Coagulase negative sdtg=9730) STAPHYLOCOCCUS Staphylococcus Clindamycin (test code=10) Erythromycin (test code=4) Linezolid (test code=40) Nitrofurantoin (test code=23) Oxacillin (test code=14) Rifampin (test code=43) Tetracycline (test code=2) Trimethoprim + Sulfamethoxazole (test code=47) Vancomycin (test code=13) GRAM STAIN RESULT <1+ WBCs (BEAKER) (test lzte=7077) GRAM STAIN RESULT No organisms seen (BEAKER) (test mnya=626194) POCT-GLUCOSE [id number] 13:22:00 Test Item Value Reference Range Comments POC-GLUCOSE METER (BEAKER) 103 mg/dL 70-[address] [facility] [address] (test facl=1589) [facility] [address] POCT-GLUCOSE [id number] 12:44:00 Test Item Value Reference Range Comments POC-GLUCOSE METER (BEAKER) 66 mg/dL 70-110 Notified PERLA BARROW/TESTED AT [facility] (test wgvy=3814) [address] [facility] [address] BRONCHIAL CULTURE + GRAM [id number] 11:47:00 Test Item Value Reference Range Comments CULTURE (BEAKER) (test 1+ Normal respiratory morelia nrcl=8263) present GRAM STAIN RESULT (BEAKER) 1+ WBCs (test uroy=2020) GRAM STAIN RESULT (BEAKER) No organisms seen (test zadv=29263) RAD, CHEST, 1 VIEW, NON [id number] 11:17:00Reason for exam:->s/p decorticationShould this be performed at the bedside?->YesFINAL REPORT Chest one view compared to July 02 Discussion: Bilateral chest tubes in place. There persistent small pneumothoraces left more than right at the apices, unchanged. Ill-defined interstitial opacities left lung are stable. Support tubes in place. IMPRESSIONS: No significant change Signed: Cata Montano Verified Date/Time: 07/03/2017 11:17:09 Reading Location: [facility] Radiology Reading Room POCT-GLUCOSE [id number] 08:54:00 Test Item Value Reference Range Comments POC-GLUCOSE METER (BEAKER) 194 mg/dL 70-110 TESTED AT [address] (test kezh=3477) [facility] [address] SURGICALLY OBTAINED CULTURE + GRAM [id number] 08:42:00 Test Item Value Reference Range Comments CULTURE (BEAKER) (test vfst=7344) No growth GRAM STAIN RESULT (BEAKER) (test <1+ WBCs paoh=6113) GRAM STAIN RESULT (BEAKER) (test No organisms seen zlvm=45589) SURGICALLY OBTAINED CULTURE + GRAM [id number] 08:41:00 Test Item Value Reference Range Comments CULTURE (BEAKER) (test haov=5459) No growth GRAM STAIN RESULT (BEAKER) (test <1+ WBCs aewk=2853) GRAM STAIN RESULT (BEAKER) (test No organisms seen lrwp=59378) SURGICALLY OBTAINED CULTURE + GRAM [id number] 08:41:00 Test Item Value Reference Range Comments CULTURE (BEAKER) (test isuf=0998) No growth GRAM STAIN RESULT (BEAKER) (test <1+ WBCs pnmj=4486) GRAM STAIN RESULT (BEAKER) (test No organisms seen tmjv=83160) SURGICALLY OBTAINED CULTURE + GRAM [id number] 08:40:00 Test Item Value Reference Range Comments CULTURE (BEAKER) (test fado=7080) No growth GRAM STAIN RESULT (BEAKER) (test <1+ WBCs kabn=4603) GRAM STAIN RESULT (BEAKER) (test No organisms seen yjvx=57082) SURGICALLY OBTAINED CULTURE + GRAM [id number] 08:40:00 Test Item Value Reference Range Comments CULTURE (BEAKER) (test heuk=5360) No growth GRAM STAIN RESULT (BEAKER) (test <1+ WBCs hzde=1835) GRAM STAIN RESULT (BEAKER) (test No organisms seen zllu=50553) SURGICALLY OBTAINED CULTURE + GRAM [id number] 08:40:00 Test Item Value Reference Range Comments CULTURE (BEAKER) (test khvp=1590) No growth GRAM STAIN RESULT (BEAKER) (test <1+ WBCs coax=5727) GRAM STAIN RESULT (BEAKER) (test No organisms seen luwl=70769) SURGICALLY OBTAINED CULTURE + GRAM [id number] 08:39:00 Test Item Value Reference Range Comments CULTURE (BEAKER) (test appx=7388) No growth GRAM STAIN RESULT (BEAKER) (test <1+ WBCs jjsl=4185) GRAM STAIN RESULT (BEAKER) (test No organisms seen yatv=14495) VANCOMYCIN LEVEL, [id number] 04:12:00 Test Item Value Reference Range Comments VANCOMYCIN RANDOM (BEAKER) (test gifs=321) 12.7 ug/mL Reference Range: No NormalsBLOOD GAS, [id number] 04:10:00 Test Item Value Reference Range Comments PH ARTERIAL (BEAKER) (test yihp=262) 7.36 7.35-7.45 PCO2 ARTERIAL (BEAKER) (test ghmb=020) 42 mmHg 35-45 PO2 ARTERIAL (BEAKER) (test bjrd=728) 199 mmHg 80-90 O2 SATURATION ARTERIAL (BEAKER) (test ewju=803) 99.3 % 96.0-97.0 HCO3 ARTERIAL (BEAKER) (test gwnc=483) 23 mmol/L 21-29 BASE EXCESS ARTERIAL (BEAKER) (test zdzq=431) -2.5 mmol/L -2.0-3.0 PATIENT TEMPERATURE (BEAKER) (test awnm=7391) 37.0 C FIO2 (BEAKER) (test mcdp=4443) 40.0 % BASIC METABOLIC [id number] 04:05:00 Test Item Value Reference Range Comments SODIUM (BEAKER) (test 142 meq/L 136-145 dhhe=804) POTASSIUM (BEAKER) (test 4.4 meq/L 3.5-5.1 casq=715) CHLORIDE (BEAKER) (test 101 meq/L 98-107 cxke=216) CO2 (BEAKER) (test 19 meq/L 22-29 kddu=420) BLOOD UREA NITROGEN 43 mg/dL 7-21 (BEAKER) (test saxx=629) CREATININE (BEAKER) (test 7.14 mg/dL 0.57-1.25 pehj=404) GLUCOSE RANDOM (BEAKER) 146 mg/dL 70-105 (test rggd=175) CALCIUM (BEAKER) (test 9.2 mg/dL 8.4-10.2 jqxg=578) EGFR (BEAKER) (test 9 mL/min/1.73 sq m ESTIMATED GFR IS NOT dhwn=1826) ACCURATE CREATININE CLEARANCE IN PREDICTING GLOMERULAR FILTRATION RATE. ESTIMATED GFR IS NOT APPLICABLE FOR DIALYSIS PATIENTS. [id number] 03:51:00 Test Item Value Reference Range Comments PHOSPHORUS (BEAKER) (test eawf=549) 7.4 mg/dL 2.3-4.7 [id number] 03:51:00 Test Item Value Reference Range Comments MAGNESIUM (BEAKER) (test lhkv=742) 2.5 mg/dL 1.6-2.6 [id number] 03:46:00 Test Item Value Reference Range Comments PARTIAL THROMBOPLASTIN TIME (BEAKER) (test 49.4 seconds 22.5-36.0 fqdh=521) CBC W/PLT COUNT & AUTO [id number] 03:46:00 Test Item Value Reference Range Comments WHITE BLOOD CELL COUNT (BEAKER) (test pujy=296) 14.4 K/ L 3.5-10.5 RED BLOOD CELL COUNT (BEAKER) (test dsra=198) 3.21 M/ L 4.63-6.08 HEMOGLOBIN (BEAKER) (test meoh=447) 8.6 GM/DL 13.7-17.5 HEMATOCRIT (BEAKER) (test pnzz=685) 28.6 % 40.1-51.0 MEAN CORPUSCULAR VOLUME (BEAKER) (test jgiv=979) 89.1 fL 79.0-92.2 MEAN CORPUSCULAR HEMOGLOBIN (BEAKER) (test 26.8 pg 25.7-32.2 ilqq=323) MEAN CORPUSCULAR HEMOGLOBIN CONC (BEAKER) (test 30.1 GM/DL 32.3-36.5 qkop=395) RED CELL DISTRIBUTION WIDTH (BEAKER) (test 17.2 % 11.6-14.4 jftm=085) PLATELET COUNT (BEAKER) (test tqso=880) 243 K/CU MM 150-450 MEAN PLATELET VOLUME (BEAKER) (test tovu=157) 12.3 fL 9.4-12.4 NUCLEATED RED BLOOD CELLS (BEAKER) (test 0 /100 WBC 0-0 tnzj=079) NEUTROPHILS RELATIVE PERCENT (BEAKER) (test 80 % bdhk=859) LYMPHOCYTES RELATIVE PERCENT (BEAKER) (test 7 % dlkb=328) MONOCYTES RELATIVE PERCENT (BEAKER) (test 7 % rjvt=878) EOSINOPHILS RELATIVE PERCENT (BEAKER) (test 5 % srib=668) BASOPHILS RELATIVE PERCENT (BEAKER) (test 0 % kwre=901) NEUTROPHILS ABSOLUTE COUNT (BEAKER) (test 11.50 K/ L 1.78-5.38 plll=655) LYMPHOCYTES ABSOLUTE COUNT (BEAKER) (test 1.03 K/ L 1.32-3.57 ainn=775) MONOCYTES ABSOLUTE COUNT (BEAKER) (test 0.96 K/ L 0.30-0.82 drlw=673) EOSINOPHILS ABSOLUTE COUNT (BEAKER) (test 0.71 K/ L 0.04-0.54 eeps=104) BASOPHILS ABSOLUTE COUNT (BEAKER) (test 0.06 K/ L 0.01-0.08 ubvm=783) IMMATURE GRANULOCYTES-RELATIVE PERCENT (BEAKER) 1 % 0-1 (test jbbh=5265) PROTHROMBIN [id number] 03:45:00 Test Item Value Reference Range Comments PROTIME (BEAKER) (test gint=013) 16.2 seconds 11.7-14.7 INR (BEAKER) (test pgtp=743) 1.3 <=5.9 RECOMMENDED COUMADIN/WARFARIN INR THERAPY RANGESSTANDARD DOSE: 2.0 - 3.0 Includes: PROPHYLAXIS forvenous thrombosis, systemic embolization; TREATMENT for venous thrombosis and/or pulmonary embolus.HIGH RISK: Target INR is 2.5-3.5 for patients with mechanical heart valves.POCT-GLUCOSE [id number] 23:23:00 Test Item Value Reference Range Comments POC-GLUCOSE METER (BEAKER) 123 mg/dL 70-110 TESTED AT [address] (test nbwy=6128) [facility] [address] POCT-GLUCOSE [id number] 17:45:00 Test Item Value Reference Range Comments POC-GLUCOSE METER (BEAKER) 182 mg/dL 70-110 TESTED AT [address] (test krom=7741) [facility] [address] POCT-GLUCOSE [id number] 12:28:00 Test Item Value Reference Range Comments POC-GLUCOSE METER (BEAKER) 159 mg/dL 70-110 TESTED AT [address] (test acsv=5704) [facility] [address] POCT-GLUCOSE [id number] 09:44:00 Test Item Value Reference Range Comments POC-GLUCOSE METER (BEAKER) 209 mg/dL 70-110 TESTED AT [address] (test tucv=7064) [facility] [address] BASIC METABOLIC [id number] 04:58:00 Test Item Value Reference Range Comments SODIUM (BEAKER) (test 140 meq/L 136-145 ezzt=046) POTASSIUM (BEAKER) (test 3.6 meq/L 3.5-5.1 xwjk=402) CHLORIDE (BEAKER) (test 100 meq/L 98-107 cqlx=701) CO2 (BEAKER) (test 20 meq/L 22-29 ecvo=064) BLOOD UREA NITROGEN 27 mg/dL 7-21 (BEAKER) (test cyql=836) CREATININE (BEAKER) (test 5.17 mg/dL 0.57-1.25 azhf=913) GLUCOSE RANDOM (BEAKER) 160 mg/dL 70-105 (test yybs=592) CALCIUM (BEAKER) (test 9.0 mg/dL 8.4-10.2 gplx=730) EGFR (BEAKER) (test 12 mL/min/1.73 sq m ESTIMATED GFR IS NOT tmra=7060) ACCURATE CREATININE CLEARANCE IN PREDICTING GLOMERULAR FILTRATION RATE. ESTIMATED GFR IS NOT APPLICABLE FOR DIALYSIS PATIENTS. [id number] 04:57:00 Test Item Value Reference Range Comments PHOSPHORUS (BEAKER) (test lnoi=225) 4.7 mg/dL 2.3-4.7 [id number] 04:57:00 Test Item Value Reference Range Comments MAGNESIUM (BEAKER) (test ugds=945) 2.3 mg/dL 1.6-2.6 RAD, CHEST, 1 VIEW, NON [id number] 04:40:00Reason for exam:->s/p thoracic surgeryShould this be performed at the bedside?->YesFINAL REPORT RAD, CHEST, 1 VIEW, NON DEPT INDICATION: s/p thoracic surgery COMPARISON: Prior day's exam TECHNIQUE: Portable frontal view of the chest. IMPRESSION: Lines and tubes stable.Cardiomediastinal silhouette stable.Improved but persistent bilateral pneumothoraces, trace on the right and small on the left.Stable interstitial opacities in the left lung.No acute osseous abnormality. Signed: Primo Koehler MDReport Verified Date/Time: 07/02 04:40:28 Reading Location: [address] Body Reading Room [id number] 04:23:00 Test Item Value Reference Range Comments PARTIAL THROMBOPLASTIN TIME (BEAKER) (test 47.6 seconds 22.5-36.0 jvaq=800) PROTHROMBIN [id number] 04:22:00 Test Item Value Reference Range Comments PROTIME (BEAKER) (test owgw=237) 15.7 seconds 11.7-14.7 INR (BEAKER) (test cwyw=732) 1.3 <=5.9 RECOMMENDED COUMADIN/WARFARIN INR THERAPY RANGESSTANDARD DOSE: 2.0 - 3.0 Includes: PROPHYLAXIS forvenous thrombosis, systemic embolization; TREATMENT for venous thrombosis and/or pulmonary embolus.HIGH RISK: Target INR is 2.5-3.5 for patients with mechanical heart valves.CBC W/PLT COUNT & AUTO [id number] 04:20:00 Test Item Value Reference Range Comments WHITE BLOOD CELL COUNT (BEAKER) (test wxyy=485) 12.3 K/ L 3.5-10.5 RED BLOOD CELL COUNT (BEAKER) (test kpei=632) 3.28 M/ L 4.63-6.08 HEMOGLOBIN (BEAKER) (test juol=531) 8.7 GM/DL 13.7-17.5 HEMATOCRIT (BEAKER) (test zofd=010) 28.1 % 40.1-51.0 MEAN CORPUSCULAR VOLUME (BEAKER) (test cabb=486) 85.7 fL 79.0-92.2 MEAN CORPUSCULAR HEMOGLOBIN (BEAKER) (test 26.5 pg 25.7-32.2 yeti=763) MEAN CORPUSCULAR HEMOGLOBIN CONC (BEAKER) (test 31.0 GM/DL 32.3-36.5 szrl=408) RED CELL DISTRIBUTION WIDTH (BEAKER) (test 16.5 % 11.6-14.4 hrmd=673) PLATELET COUNT (BEAKER) (test bnwf=608) 243 K/CU MM 150-450 MEAN PLATELET VOLUME (BEAKER) (test cckg=424) 13.0 fL 9.4-12.4 NUCLEATED RED BLOOD CELLS (BEAKER) (test 0 /100 WBC 0-0 joqp=100) NEUTROPHILS RELATIVE PERCENT (BEAKER) (test 76 % numn=258) LYMPHOCYTES RELATIVE PERCENT (BEAKER) (test 11 % myyx=606) MONOCYTES RELATIVE PERCENT (BEAKER) (test 7 % okvo=563) EOSINOPHILS RELATIVE PERCENT (BEAKER) (test 5 % pqyq=591) BASOPHILS RELATIVE PERCENT (BEAKER) (test 1 % whfm=654) NEUTROPHILS ABSOLUTE COUNT (BEAKER) (test 9.38 K/ L 1.78-5.38 hqtz=056) LYMPHOCYTES ABSOLUTE COUNT (BEAKER) (test 1.31 K/ L 1.32-3.57 qwbe=852) MONOCYTES ABSOLUTE COUNT (BEAKER) (test 0.88 K/ L 0.30-0.82 ztsp=616) EOSINOPHILS ABSOLUTE COUNT (BEAKER) (test 0.59 K/ L 0.04-0.54 echr=223) BASOPHILS ABSOLUTE COUNT (BEAKER) (test 0.07 K/ L 0.01-0.08 mrpw=255) IMMATURE GRANULOCYTES-RELATIVE PERCENT (BEAKER) 1 % 0-1 (test ngpc=3322) BLOOD GAS, [id number] 04:02:00 Test Item Value Reference Range Comments PH ARTERIAL (BEAKER) (test weul=190) 7.52 7.35-7.45 PCO2 ARTERIAL (BEAKER) (test vivn=772) 28 mmHg 35-45 PO2 ARTERIAL (BEAKER) (test xrcq=495) 232 mmHg 80-90 O2 SATURATION ARTERIAL (BEAKER) (test ttlp=611) 99.6 % 96.0-97.0 HCO3 ARTERIAL (BEAKER) (test jvqr=503) 23 mmol/L 21-29 BASE EXCESS ARTERIAL (BEAKER) (test mszv=403) 0.5 mmol/L -2.0-3.0 PATIENT TEMPERATURE (BEAKER) (test xgpm=5659) 37.0 C FIO2 (BEAKER) (test wmjd=9102) 40.0 % POCT-GLUCOSE [id number] 23:22:00 Test Item Value Reference Range Comments POC-GLUCOSE METER (BEAKER) 139 mg/dL 70-110 TESTED AT [address] (test ghgm=3041) [place] [address] POCT-GLUCOSE [id number] 17:28:00 Test Item Value Reference Range Comments POC-GLUCOSE METER (BEAKER) 178 mg/dL 70-110 TESTED AT [address] (test zqxp=1971) [place] [address] POCT-GLUCOSE [id number] 12:46:00 Test Item Value Reference Range Comments POC-GLUCOSE METER (BEAKER) 255 mg/dL 70-110 TESTED AT [address] (test bkew=3383) [place] [address] BODY FLUID CULTURE + GRAM [id number] 10:59:00 Test Item Value Reference Range Comments CULTURE (BEAKER) (test mbfg=8143) No growth GRAM STAIN RESULT (BEAKER) (test No White blood cells seen rcdg=6566) GRAM STAIN RESULT (BEAKER) (test No organisms seen fzfg=96373) POCT-GLUCOSE [id number] 09:09:00 Test Item Value Reference Range Comments POC-GLUCOSE METER (BEAKER) 213 mg/dL 70-110 TESTED AT [address] (test ubqu=1074) [place] [address] BASIC METABOLIC [id number] 05:51:00 Test Item Value Reference Range Comments SODIUM (BEAKER) (test 144 meq/L 136-145 jwtc=325) POTASSIUM (BEAKER) (test 4.0 meq/L 3.5-5.1 wgtj=955) CHLORIDE (BEAKER) (test 102 meq/L 98-107 mitb=347) CO2 (BEAKER) (test 17 meq/L 22-29 rewf=493) BLOOD UREA NITROGEN 13 mg/dL 7-21 (BEAKER) (test evzt=223) CREATININE (BEAKER) (test 3.54 mg/dL 0.57-1.25 orvo=302) GLUCOSE RANDOM (BEAKER) 157 mg/dL 70-105 (test wtlq=450) CALCIUM (BEAKER) (test 8.7 mg/dL 8.4-10.2 vbkz=553) EGFR (BEAKER) (test 19 mL/min/1.73 sq m ESTIMATED GFR IS NOT uxip=1769) ACCURATE CREATININE CLEARANCE IN PREDICTING GLOMERULAR FILTRATION RATE. ESTIMATED GFR IS NOT APPLICABLE FOR DIALYSIS PATIENTS. [id number] 05:50:00 Test Item Value Reference Range Comments PHOSPHORUS (BEAKER) (test mezw=730) 4.2 mg/dL 2.3-4.7 [id number] 05:50:00 Test Item Value Reference Range Comments MAGNESIUM (BEAKER) (test twop=078) 2.3 mg/dL 1.6-2.6 CBC W/PLT COUNT & AUTO [id number] 05:31:00 Test Item Value Reference Range Comments WHITE BLOOD CELL COUNT (BEAKER) (test avab=008) 12.5 K/ L 3.5-10.5 RED BLOOD CELL COUNT (BEAKER) (test qeit=086) 3.37 M/ L 4.63-6.08 HEMOGLOBIN (BEAKER) (test epde=066) 8.9 GM/DL 13.7-17.5 HEMATOCRIT (BEAKER) (test qsir=444) 29.0 % 40.1-51.0 MEAN CORPUSCULAR VOLUME (BEAKER) (test dtzd=894) 86.1 fL 79.0-92.2 MEAN CORPUSCULAR HEMOGLOBIN (BEAKER) (test 26.4 pg 25.7-32.2 tssz=060) MEAN CORPUSCULAR HEMOGLOBIN CONC (BEAKER) (test 30.7 GM/DL 32.3-36.5 axaw=776) RED CELL DISTRIBUTION WIDTH (BEAKER) (test 15.8 % 11.6-14.4 wevh=469) PLATELET COUNT (BEAKER) (test zzhu=322) 228 K/CU MM 150-450 MEAN PLATELET VOLUME (BEAKER) (test sdez=809) 13.0 fL 9.4-12.4 NUCLEATED RED BLOOD CELLS (BEAKER) (test 0 /100 WBC 0-0 pwbb=037) NEUTROPHILS RELATIVE PERCENT (BEAKER) (test 80 % cgir=231) LYMPHOCYTES RELATIVE PERCENT (BEAKER) (test 10 % qunn=359) MONOCYTES RELATIVE PERCENT (BEAKER) (test 7 % uadw=498) EOSINOPHILS RELATIVE PERCENT (BEAKER) (test 2 % ezam=940) BASOPHILS RELATIVE PERCENT (BEAKER) (test 1 % okbo=695) NEUTROPHILS ABSOLUTE COUNT (BEAKER) (test 9.94 K/ L 1.78-5.38 llkm=720) LYMPHOCYTES ABSOLUTE COUNT (BEAKER) (test 1.27 K/ L 1.32-3.57 ejkv=587) MONOCYTES ABSOLUTE COUNT (BEAKER) (test 0.87 K/ L 0.30-0.82 wljo=022) EOSINOPHILS ABSOLUTE COUNT (BEAKER) (test 0.19 K/ L 0.04-0.54 bssr=836) BASOPHILS ABSOLUTE COUNT (BEAKER) (test 0.07 K/ L 0.01-0.08 ysuf=514) IMMATURE GRANULOCYTES-RELATIVE PERCENT (BEAKER) 1 % 0-1 (test brzp=9097) PROTHROMBIN TIME/[id number] 05:26:00 Test Item Value Reference Range Comments PROTIME (BEAKER) (test mwli=653) 15.4 seconds 11.7-14.7 INR (BEAKER) (test bqbl=634) 1.2 <=5.9 RECOMMENDED COUMADIN/WARFARIN INR THERAPY RANGESSTANDARD DOSE: 2.0 - 3.0 Includes: PROPHYLAXIS forvenous thrombosis, systemic embolization; TREATMENT for venous thrombosis and/or pulmonary embolus.HIGH RISK: Target INR is 2.5-3.5 for patients with mechanical heart valves.[id number] 05:26:00 Test Item Value Reference Range Comments PARTIAL THROMBOPLASTIN TIME (BEAKER) (test 38.6 seconds 22.5-36.0 rlkx=314) BLOOD GAS, [id number] 04:31:00 Test Item Value Reference Range Comments PH ARTERIAL (BEAKER) (test uzoa=636) 7.46 7.35-7.45 PCO2 ARTERIAL (BEAKER) (test ijrt=743) 24 mmHg 35-45 PO2 ARTERIAL (BEAKER) (test lxip=203) 280 mmHg 80-90 O2 SATURATION ARTERIAL (BEAKER) (test bnmb=569) 99.7 % 96.0-97.0 HCO3 ARTERIAL (BEAKER) (test jfof=748) 17 mmol/L 21-29 BASE EXCESS ARTERIAL (BEAKER) (test rnai=588) -5.8 mmol/L -2.0-3.0 PATIENT TEMPERATURE (BEAKER) (test uxgm=6860) 37.0 C FIO2 (BEAKER) (test kaxk=7058) 50.0 % RAD, CHEST, 1 VIEW, NON [id number] 04:31:00Reason for exam:->s/p thoracic surgeryShould this be performed at the bedside?->YesFINAL REPORT RAD, CHEST, 1 VIEW, NON DEPT INDICATION: s/p thoracic surgery COMPARISON: Prior day's exam TECHNIQUE: Portable frontal view of the chest. IMPRESSION: Lines and tubes stable.Stable cardiomegaly.Stable bilateral pneumothoraces, left greater than right.Stable interstitial opacities in the left lung.No acute osseous abnormality. Signed: Primo Koehler MDReport Verified Date/Time: 07/01/2017 04:31:20 Reading Location: [address] Body Reading Room 04: 31 AMBLOOD GAS, [id number] 20:48:00 Test Item Value Reference Range Comments PH ARTERIAL (BEAKER) (test jlnb=699) 7.52 7.35-7.45 PCO2 ARTERIAL (BEAKER) (test beyt=936) 26 mmHg 35-45 PO2 ARTERIAL (BEAKER) (test wlkw=805) 267 mmHg 80-90 O2 SATURATION ARTERIAL (BEAKER) (test mtxu=551) 99.7 % 96.0-97.0 HCO3 ARTERIAL (BEAKER) (test uzyn=538) 21 mmol/L 21-29 BASE EXCESS ARTERIAL (BEAKER) (test jixg=558) -1.2 mmol/L -2.0-3.0 PATIENT TEMPERATURE (BEAKER) (test onpe=0030) 37.0 C FIO2 (BEAKER) (test tbto=7158) 50.0 % PROTHROMBIN [id number] 15:11:00 Test Item Value Reference Range Comments PROTIME (BEAKER) (test qmjf=031) 15.1 seconds 11.7-14.7 INR (BEAKER) (test zwir=044) 1.2 <=5.9 RECOMMENDED COUMADIN/WARFARIN INR THERAPY RANGESSTANDARD DOSE: 2.0 - 3.0 Includes: PROPHYLAXIS forvenous thrombosis, systemic embolization; TREATMENT for venous thrombosis and/or pulmonary embolus.HIGH RISK: Target INR is 2.5-3.5 for patients with mechanical heart valves.[id number] 15:11:00 Test Item Value Reference Range Comments PARTIAL THROMBOPLASTIN TIME (BEAKER) (test 30.9 seconds 22.5-36.0 jojh=391) RAD, CHEST, 1 VIEW, NON [id number] 15:11:00Reason for exam:->s/p thoracic surgeryShould this be performed at the bedside?->YesFINAL REPORT COMPARISON: 06/29/2009 TECHNIQUE: Single view of the chest FINDINGS: Patient has presumably undergone recent cardiothoracic surgery. There is mild prominence of interstitial markings. No overt consolidation, edema , or large pleural effusion. There is a tiny right pneumothorax, new from before. There is a small to moderate left pneumothorax. Previous left pleural effusion has decreased. Multiple support lines and tubes are in place. An endotracheal tube projects approximately 6.3 cm above the dmitry. A nasogastric tube projects below the diaphragm. Bilateral chest tubes are noted. Signed: Ariel Payne MDReport Verified Date/Time: 06/30/2017 15:11:38 Reading Location: [address] Reading Room CBC W/PLT COUNT & AUTO [id number] 15:01:00 Test Item Value Reference Range Comments WHITE BLOOD CELL COUNT (BEAKER) (test edit=450) 9.1 K/ L 3.5-10.5 RED BLOOD CELL COUNT (BEAKER) (test foes=768) 3.19 M/ L 4.63-6.08 HEMOGLOBIN (BEAKER) (test hysd=497) 8.4 GM/DL 13.7-17.5 HEMATOCRIT (BEAKER) (test ztnt=826) 27.2 % 40.1-51.0 MEAN CORPUSCULAR VOLUME (BEAKER) (test zrlm=744) 85.3 fL 79.0-92.2 MEAN CORPUSCULAR HEMOGLOBIN (BEAKER) (test 26.3 pg 25.7-32.2 owoc=887) MEAN CORPUSCULAR HEMOGLOBIN CONC (BEAKER) (test 30.9 GM/DL 32.3-36.5 fkhr=163) RED CELL DISTRIBUTION WIDTH (BEAKER) (test 14.7 % 11.6-14.4 efgb=419) PLATELET COUNT (BEAKER) (test yeho=892) 214 K/CU MM 150-450 MEAN PLATELET VOLUME (BEAKER) (test arkd=279) 13.0 fL 9.4-12.4 NUCLEATED RED BLOOD CELLS (BEAKER) (test 0 /100 WBC 0-0 dzzi=882) NEUTROPHILS RELATIVE PERCENT (BEAKER) (test 85 % bjat=017) LYMPHOCYTES RELATIVE PERCENT (BEAKER) (test 6 % dspo=161) MONOCYTES RELATIVE PERCENT (BEAKER) (test 6 % pudl=200) EOSINOPHILS RELATIVE PERCENT (BEAKER) (test 2 % lmwn=690) BASOPHILS RELATIVE PERCENT (BEAKER) (test 1 % iymc=185) NEUTROPHILS ABSOLUTE COUNT (BEAKER) (test 7.68 K/ L 1.78-5.38 eohb=633) LYMPHOCYTES ABSOLUTE COUNT (BEAKER) (test 0.56 K/ L 1.32-3.57 fvol=759) MONOCYTES ABSOLUTE COUNT (BEAKER) (test 0.52 K/ L 0.30-0.82 zfxl=764) EOSINOPHILS ABSOLUTE COUNT (BEAKER) (test 0.18 K/ L 0.04-0.54 vrpp=046) BASOPHILS ABSOLUTE COUNT (BEAKER) (test 0.05 K/ L 0.01-0.08 aztf=711) IMMATURE GRANULOCYTES-RELATIVE PERCENT (BEAKER) 1 % 0-1 (test xdpm=1769) BASIC METABOLIC [id number] 14:57:00 Test Item Value Reference Range Comments SODIUM (BEAKER) (test 137 meq/L 136-145 sbix=384) POTASSIUM (BEAKER) (test 5.1 meq/L 3.5-5.1 zttm=086) CHLORIDE (BEAKER) (test 99 meq/L 98-107 veco=862) CO2 (BEAKER) (test 15 meq/L 22-29 vshj=205) BLOOD UREA NITROGEN 36 mg/dL 7-21 (BEAKER) (test kagw=931) CREATININE (BEAKER) (test 7.10 mg/dL 0.57-1.25 zpxs=506) GLUCOSE RANDOM (BEAKER) 235 mg/dL 70-105 (test tjfn=003) CALCIUM (BEAKER) (test 8.8 mg/dL 8.4-10.2 tgef=597) EGFR (BEAKER) (test 9 mL/min/1.73 sq m ESTIMATED GFR IS NOT mbhz=9528) ACCURATE CREATININE CLEARANCE IN PREDICTING GLOMERULAR FILTRATION RATE. ESTIMATED GFR IS NOT APPLICABLE FOR DIALYSIS PATIENTS. [id number] 14:54:00 Test Item Value Reference Range Comments MAGNESIUM (BEAKER) (test vgmj=015) 2.1 mg/dL 1.6-2.6 BLOOD GAS, [id number] 14:28:00 Test Item Value Reference Range Comments PH ARTERIAL (BEAKER) (test tvyj=330) 7.53 7.35-7.45 PCO2 ARTERIAL (BEAKER) (test down=613) 21 mmHg 35-45 PO2 ARTERIAL (BEAKER) (test mscx=537) 336 mmHg 80-90 O2 SATURATION ARTERIAL (BEAKER) (test vyer=719) 99.8 % 96.0-97.0 HCO3 ARTERIAL (BEAKER) (test wtsz=071) 17 mmol/L 21-29 BASE EXCESS ARTERIAL (BEAKER) (test bvto=759) -5.0 mmol/L -2.0-3.0 PATIENT TEMPERATURE (BEAKER) (test hlrc=2974) 36.1 C FIO2 (BEAKER) (test nmhg=6662) 60.0 % BLOOD GAS, [id number] 10:25:00 Test Item Value Reference Range Comments PH ARTERIAL (BEAKER) (test oxso=277) 7.50 7.35-7.45 PCO2 ARTERIAL (BEAKER) (test ievq=827) 31 mmHg 35-45 PO2 ARTERIAL (BEAKER) (test jjxs=246) 570 mmHg 80-90 O2 SATURATION ARTERIAL (BEAKER) (test tpey=634) 99.9 % 96.0-97.0 HCO3 ARTERIAL (BEAKER) (test vehb=719) 24 mmol/L 21-29 BASE EXCESS ARTERIAL (BEAKER) (test jxyv=866) 0.5 mmol/L -2.0-3.0 PATIENT TEMPERATURE (BEAKER) (test cxyf=9594) 34.6 C FIO2 (BEAKER) (test sjek=3260) 100.0 % SODIUM NA-STAT [id number] 10:25:00 Test Item Value Reference Range Comments SODIUM (BEAKER) (test uhlx=509) 134 meq/L 135-148 GLUCOSE-STAT [id number] 10:25:00 Test Item Value Reference Range Comments GLUCOSE RANDOM (BEAKER) (test nhnb=842) 193 mg/dL 70-110 HGB/HCT (H&H) - STAT [id number] 10:25:00 Test Item Value Reference Range Comments HEMOGLOBIN (BEAKER) (test napw=098) 9.8 g/dL 13.0-16.8 HEMATOCRIT (BEAKER) (test foxj=855) 29.0 % 40.0-50.0 POTASSIUM-STAT [id number] 10:23:00 Test Item Value Reference Range Comments POTASSIUM (BEAKER) (test qyvc=584) 4.5 meq/L 3.6-5.5 POCT-GLUCOSE [id number] 07:34:00 Test Item Value Reference Range Comments POC-GLUCOSE METER (BEAKER) 163 mg/dL 70-[address] [facility] [address] (test yvqv=1555) [facility] [address] [id number] 05:59:00 Test Item Value Reference Range Comments MAGNESIUM (BEAKER) (test 2.5 mg/dL 1.6-2.6 Specimen slightly hemolyzed uzrl=104) [id number] 05:59:00 Test Item Value Reference Range Comments PHOSPHORUS (BEAKER) (test 4.5 mg/dL 2.3-4.7 Specimen slightly hemolyzed lpzd=571) BASIC METABOLIC [id number] 05:59:00 Test Item Value Reference Range Comments SODIUM (BEAKER) (test 137 meq/L 136-145 xoxu=734) POTASSIUM (BEAKER) (test 4.9 meq/L 3.5-5.1 Specimen slightly dbsl=544) hemolyzed CHLORIDE (BEAKER) (test 97 meq/L 98-107 cncj=493) CO2 (BEAKER) (test 22 meq/L 22-29 gsul=714) BLOOD UREA NITROGEN 33 mg/dL 7-21 (BEAKER) (test zjpf=283) CREATININE (BEAKER) (test 6.63 mg/dL 0.57-1.25 Specimen slightly tqij=078) hemolyzed GLUCOSE RANDOM (BEAKER) 173 mg/dL 70-105 (test dwzy=067) CALCIUM (BEAKER) (test 9.3 mg/dL 8.4-10.2 yqtg=049) EGFR (BEAKER) (test 9 mL/min/1.73 sq m ESTIMATED GFR IS NOT pukw=7115) ACCURATE CREATININE CLEARANCE IN PREDICTING GLOMERULAR FILTRATION RATE. ESTIMATED GFR IS NOT APPLICABLE FOR DIALYSIS PATIENTS. CBC W/PLT COUNT & AUTO [id number] 05:56:00 Test Item Value Reference Range Comments WHITE BLOOD CELL COUNT (BEAKER) (test lnpt=028) 8.2 K/ L 3.5-10.5 RED BLOOD CELL COUNT (BEAKER) (test scso=896) 3.86 M/ L 4.63-6.08 HEMOGLOBIN (BEAKER) (test qgvh=367) 10.3 GM/DL 13.7-17.5 HEMATOCRIT (BEAKER) (test mrun=192) 33.3 % 40.1-51.0 MEAN CORPUSCULAR VOLUME (BEAKER) (test sdgh=195) 86.3 fL 79.0-92.2 MEAN CORPUSCULAR HEMOGLOBIN (BEAKER) (test 26.7 pg 25.7-32.2 rmin=176) MEAN CORPUSCULAR HEMOGLOBIN CONC (BEAKER) (test 30.9 GM/DL 32.3-36.5 pjgx=109) RED CELL DISTRIBUTION WIDTH (BEAKER) (test 14.8 % 11.6-14.4 borj=448) PLATELET COUNT (BEAKER) (test dnuh=626) 251 K/CU MM 150-450 MEAN PLATELET VOLUME (BEAKER) (test iebq=500) 12.8 fL 9.4-12.4 NUCLEATED RED BLOOD CELLS (BEAKER) (test 0 /100 WBC 0-0 pphf=673) NEUTROPHILS RELATIVE PERCENT (BEAKER) (test 63 % ehai=528) LYMPHOCYTES RELATIVE PERCENT (BEAKER) (test 18 % zeai=419) MONOCYTES RELATIVE PERCENT (BEAKER) (test 8 % ybmm=180) EOSINOPHILS RELATIVE PERCENT (BEAKER) (test 9 % ghdx=668) BASOPHILS RELATIVE PERCENT (BEAKER) (test 1 % osye=146) NEUTROPHILS ABSOLUTE COUNT (BEAKER) (test 5.19 K/ L 1.78-5.38 tklz=596) LYMPHOCYTES ABSOLUTE COUNT (BEAKER) (test 1.50 K/ L 1.32-3.57 jnmj=640) MONOCYTES ABSOLUTE COUNT (BEAKER) (test 0.65 K/ L 0.30-0.82 hqlg=624) EOSINOPHILS ABSOLUTE COUNT (BEAKER) (test 0.70 K/ L 0.04-0.54 siuy=549) BASOPHILS ABSOLUTE COUNT (BEAKER) (test 0.11 K/ L 0.01-0.08 kmco=893) IMMATURE GRANULOCYTES-RELATIVE PERCENT (BEAKER) 1 % 0-1 (test sawx=6332) POCT-GLUCOSE [id number] 21:18:00 Test Item Value Reference Range Comments POC-GLUCOSE METER (BEAKER) 194 mg/dL 70-[address] [facility] [address] (test slqw=1903) [facility] [address] RAD, CHEST, 1 VIEW, NON [id number] 19:48:00Reason for exam:->chest tube removalReason for exam:->chest tube removalFINAL REPORT Chest radiograph, AP Clinical History: Chest tube removal Impression: Compared with chest CT and chest radiograph 06/27/2017 The left- sided pleural catheter has been removed in the interval. The bilateral pleural effusions are grossly stable. As before the left pleural effusion is larger than the right. Bilateral relatively stable parenchymal lung opacities are also again noted, left greater than right. No definite evidence of new lung consolidation. The gas collections within the left pleural space are also relatively stable. The heart is enlarged as before. Mediastinal contours are grossly stable. In summary, interval removal of the left-sided chest tube. Otherwise stable exam. Continued imaging surveillance recommended. Signed: Ganesh Anderson MDReport Verified Date/Time: 06/29/2017 19:48:42 Reading Location: [address] Reading Room POCT-GLUCOSE [id number] 17:25:00 Test Item Value Reference Range Comments POC-GLUCOSE METER (BEAKER) 166 mg/dL 70-110 TESTED AT [address] (test ytcp=8499) [place] [address] [id number] 09:50:00 Test Item Value Reference Range Comments PROTIME (BEAKER) (test snyu=228) 13.1 seconds 11.7-14.7 INR (BEAKER) (test vjez=145) 1.0 <=5.9 PARTIAL THROMBOPLASTIN TIME (BEAKER) (test 29.4 seconds 22.5-36.0 qast=650) RECOMMENDED COUMADIN/WARFARIN INR THERAPY RANGESSTANDARD DOSE: 2.0 - 3.0 Includes: PROPHYLAXIS forvenous thrombosis, systemic embolization; TREATMENT for venous thrombosis and/or pulmonary embolus.HIGH RISK: Target INR is 2.5-3.5 for patients with mechanical heart valves.POCT-GLUCOSE [id number] 07:13:00 Test Item Value Reference Range Comments POC-GLUCOSE METER (BEAKER) 132 mg/dL 70-110 TESTED AT [address] (test jguk=8120) [place] [id number] BASIC METABOLIC [id number] 04:59:00 Test Item Value Reference Range Comments SODIUM (BEAKER) (test 139 meq/L 136-145 qbyn=329) POTASSIUM (BEAKER) (test 4.1 meq/L 3.5-5.1 frqk=933) CHLORIDE (BEAKER) (test 100 meq/L 98-107 iicj=944) CO2 (BEAKER) (test 26 meq/L 22-29 slgb=647) BLOOD UREA NITROGEN 17 mg/dL 7-21 (BEAKER) (test nyfq=675) CREATININE (BEAKER) (test 4.77 mg/dL 0.57-1.25 quun=471) GLUCOSE RANDOM (BEAKER) 114 mg/dL 70-105 (test gaij=314) CALCIUM (BEAKER) (test 8.7 mg/dL 8.4-10.2 metm=588) EGFR (BEAKER) (test 14 mL/min/1.73 sq m ESTIMATED GFR IS NOT iiee=2974) ACCURATE CREATININE CLEARANCE IN PREDICTING GLOMERULAR FILTRATION RATE. ESTIMATED GFR IS NOT APPLICABLE FOR DIALYSIS PATIENTS. [id number] 04:54:00 Test Item Value Reference Range Comments PHOSPHORUS (BEAKER) (test jylc=772) 3.2 mg/dL 2.3-4.7 [id number] 04:54:00 Test Item Value Reference Range Comments MAGNESIUM (BEAKER) (test zclq=469) 2.0 mg/dL 1.6-2.6 CBC W/PLT COUNT & AUTO [id number] 04:35:00 Test Item Value Reference Range Comments WHITE BLOOD CELL COUNT (BEAKER) (test kzry=717) 8.1 K/ L 3.5-10.5 RED BLOOD CELL COUNT (BEAKER) (test aduz=331) 3.48 M/ L 4.63-6.08 HEMOGLOBIN (BEAKER) (test qpaj=921) 9.4 GM/DL 13.7-17.5 HEMATOCRIT (BEAKER) (test ucpf=062) 30.4 % 40.1-51.0 MEAN CORPUSCULAR VOLUME (BEAKER) (test ysdm=089) 87.4 fL 79.0-92.2 MEAN CORPUSCULAR HEMOGLOBIN (BEAKER) (test 27.0 pg 25.7-32.2 qtwd=940) MEAN CORPUSCULAR HEMOGLOBIN CONC (BEAKER) (test 30.9 GM/DL 32.3-36.5 ywaw=368) RED CELL DISTRIBUTION WIDTH (BEAKER) (test 14.6 % 11.6-14.4 birz=602) PLATELET COUNT (BEAKER) (test raun=082) 196 K/CU MM 150-450 MEAN PLATELET VOLUME (BEAKER) (test fvhf=353) 12.7 fL 9.4-12.4 NUCLEATED RED BLOOD CELLS (BEAKER) (test 0 /100 WBC 0-0 iufd=517) NEUTROPHILS RELATIVE PERCENT (BEAKER) (test 63 % hope=506) LYMPHOCYTES RELATIVE PERCENT (BEAKER) (test 18 % lgoy=518) MONOCYTES RELATIVE PERCENT (BEAKER) (test 8 % rhfd=107) EOSINOPHILS RELATIVE PERCENT (BEAKER) (test 9 % xoyf=127) BASOPHILS RELATIVE PERCENT (BEAKER) (test 1 % eeia=217) NEUTROPHILS ABSOLUTE COUNT (BEAKER) (test 5.11 K/ L 1.78-5.38 pkaq=266) LYMPHOCYTES ABSOLUTE COUNT (BEAKER) (test 1.44 K/ L 1.32-3.57 nuyc=481) MONOCYTES ABSOLUTE COUNT (BEAKER) (test 0.67 K/ L 0.30-0.82 rogm=340) EOSINOPHILS ABSOLUTE COUNT (BEAKER) (test 0.72 K/ L 0.04-0.54 akuv=677) BASOPHILS ABSOLUTE COUNT (BEAKER) (test 0.10 K/ L 0.01-0.08 zyit=559) IMMATURE GRANULOCYTES-RELATIVE PERCENT (BEAKER) 0 % 0-1 (test igje=8730) POCT-GLUCOSE [id number] 21:16:00 Test Item Value Reference Range Comments POC-GLUCOSE METER (BEAKER) 136 mg/dL 70-110 TESTED AT [address] (test kezn=6253) [facility] [address] BODY FLUID CELL COUNT WITH [id number] 19:37:00 Test Item Value Reference Range Comments APPEARANCE FLUID (BEAKER) (test sxnt=935) Bloody Clear COLOR FLUID (BEAKER) (test xcqc=672) Red Colorless, Straw RBC FLUID (BEAKER) (test sgjb=815) [address] /cu mm <=1 ADJUSTED WBC FLUID (BEAKER) (test vmzy=9174) 255 /cu mm <=5 LINING CELLS (BEAKER) (test fhda=2183) 0 /cu mm <=1 NEUTROPHILS FLUID (BEAKER) (test jyzk=1894) 5 % LYMPHS FLUID (BEAKER) (test tlkk=512) 91 % MONO/MACROPHAGE FLUID (BEAKER) (test njwi=897) 1 % EOSINOPHILS FLUID (BEAKER) (test lubg=091) 2 % BASO FLUID (BEAKER) (test sdiw=679) 1 % CONTAINER BODY FLUID (BEAKER) (test uisj=8779) EDTA Tube PH, BODY [id number] 19:09:00 Test Item Value Reference Range Comments PH, BODY FLUID (BEAKER) (test fflg=6034) 9.00 LACTATE DEHYDROGENASE (LDH), BODY [id number] 19:06:00 Test Item Value Reference Range Comments LACTATE DEHYDROGENASE FLUID (BEAKER) 100 U/L Light's criteria identifies (test uybm=824) effusions if one or more are pre Absence of reference range indicates that normals have not been defined.Assay performance has not been validated for this type of specimen.PROTEIN, BODY [id number] 19:06:00 Test Item Value Reference Range Comments PROTEIN FLUID (BEAKER) (test 1.5 g/dL Light's criteria identifies pgqa=009) effusions if one or more are pre Absence of reference range indicates that normals have not been defined.Assay performance has not been validated for this type of specimen.GLUCOSE, BODY [id number] 19:06:00 Test Item Value Reference Range Comments GLUCOSE, BODY FLUID (BEAKER) (test xzis=9259) 108 mg/dL 70-110 Absence of reference range indicates that normals have not been defined.Assay performance has not been validated for this type of specimen.POCT-GLUCOSE [id number] 17:15:00 Test Item Value Reference Range Comments POC-GLUCOSE METER (BEAKER) 75 mg/dL 70-110 TESTED AT [address] (test fseq=4859) [place] [address] POCT-GLUCOSE [id number] 13:05:00 Test Item Value Reference Range Comments POC-GLUCOSE METER (BEAKER) 112 mg/dL 70-110 TESTED AT [address] (test cdkr=7990) [place] [address] HEPATITIS B SURFACE [id number] 10:55:00 Test Item Value Reference Range Comments HEPATITIS B SURFACE ANTIGEN (2) (BEAKER) (test Nonreactive Nonreactive nyhe=5992) POCT-GLUCOSE [id number] 08:37:00 Test Item Value Reference Range Comments POC-GLUCOSE METER (BEAKER) 193 mg/dL 70-110 TESTED AT [address] (test mrqe=2880) [place] [address] [id number] 07:16:00 Test Item Value Reference Range Comments PHOSPHORUS (BEAKER) (test jpwk=940) 5.9 mg/dL 2.3-4.7 [id number] 07:16:00 Test Item Value Reference Range Comments POTASSIUM (BEAKER) (test jtbo=515) 5.9 meq/L 3.5-5.1 BASIC METABOLIC [id number] 05:42:00 Test Item Value Reference Range Comments SODIUM (BEAKER) (test 139 meq/L 136-145 mhtj=101) POTASSIUM (BEAKER) (test 5.7 meq/L 3.5-5.1 kium=968) CHLORIDE (BEAKER) (test 98 meq/L 98-107 emvl=618) CO2 (BEAKER) (test 23 meq/L 22-29 ramt=900) BLOOD UREA NITROGEN 38 mg/dL 7-21 (BEAKER) (test nebk=657) CREATININE (BEAKER) (test 7.91 mg/dL 0.57-1.25 lsob=478) GLUCOSE RANDOM (BEAKER) 177 mg/dL 70-105 (test emjj=405) CALCIUM (BEAKER) (test 8.6 mg/dL 8.4-10.2 accu=527) EGFR (BEAKER) (test 8 mL/min/1.73 sq m ESTIMATED GFR IS NOT dkkz=0904) ACCURATE CREATININE CLEARANCE IN PREDICTING GLOMERULAR FILTRATION RATE. ESTIMATED GFR IS NOT APPLICABLE FOR DIALYSIS PATIENTS. [id number] 05:34:00 Test Item Value Reference Range Comments PHOSPHORUS (BEAKER) (test nfct=618) 5.9 mg/dL 2.3-4.7 [id number] 05:34:00 Test Item Value Reference Range Comments MAGNESIUM (BEAKER) (test jqrf=218) 2.3 mg/dL 1.6-2.6 CBC W/PLT COUNT & AUTO [id number] 05:07:00 Test Item Value Reference Range Comments WHITE BLOOD CELL COUNT (BEAKER) (test gmlh=278) 8.6 K/ L 3.5-10.5 RED BLOOD CELL COUNT (BEAKER) (test llxt=864) 3.42 M/ L 4.63-6.08 HEMOGLOBIN (BEAKER) (test iffg=805) 9.2 GM/DL 13.7-17.5 HEMATOCRIT (BEAKER) (test gjcx=996) 30.7 % 40.1-51.0 MEAN CORPUSCULAR VOLUME (BEAKER) (test sdvl=662) 89.8 fL 79.0-92.2 MEAN CORPUSCULAR HEMOGLOBIN (BEAKER) (test 26.9 pg 25.7-32.2 nudq=371) MEAN CORPUSCULAR HEMOGLOBIN CONC (BEAKER) (test 30.0 GM/DL 32.3-36.5 gijn=897) RED CELL DISTRIBUTION WIDTH (BEAKER) (test 14.5 % 11.6-14.4 dmna=363) PLATELET COUNT (BEAKER) (test rmni=286) 213 K/CU MM 150-450 MEAN PLATELET VOLUME (BEAKER) (test tyrz=778) 13.6 fL 9.4-12.4 NUCLEATED RED BLOOD CELLS (BEAKER) (test 0 /100 WBC 0-0 necw=191) NEUTROPHILS RELATIVE PERCENT (BEAKER) (test 71 % hthp=219) LYMPHOCYTES RELATIVE PERCENT (BEAKER) (test 13 % qxhd=710) MONOCYTES RELATIVE PERCENT (BEAKER) (test 7 % sczb=915) EOSINOPHILS RELATIVE PERCENT (BEAKER) (test 7 % sccz=505) BASOPHILS RELATIVE PERCENT (BEAKER) (test 1 % rgai=239) NEUTROPHILS ABSOLUTE COUNT (BEAKER) (test 6.11 K/ L 1.78-5.38 cepb=076) LYMPHOCYTES ABSOLUTE COUNT (BEAKER) (test 1.15 K/ L 1.32-3.57 ljji=058) MONOCYTES ABSOLUTE COUNT (BEAKER) (test 0.60 K/ L 0.30-0.82 dkcr=819) EOSINOPHILS ABSOLUTE COUNT (BEAKER) (test 0.62 K/ L 0.04-0.54 ydkd=940) BASOPHILS ABSOLUTE COUNT (BEAKER) (test 0.10 K/ L 0.01-0.08 amwa=315) IMMATURE GRANULOCYTES-RELATIVE PERCENT (BEAKER) 0 % 0-1 (test jbsw=3738) CT, CHEST, WITHOUT [id number] 22:28:00FINAL REPORT CT scan of the chest. MEDICAL HISTORY: Pleural effusion. COMPARISON STUDY: Chest x-ray dated June 27, 2017. TECHNIQUE: Contiguous helical slices were acquired throughthe thorax without the administration of contrast. This exam was performed according to our department dose optimization program which includes automated exposure control, adjustment of the mA and/or kV according to the patient's size and/or use of iterative reconstruction technique. FINDINGS : The mediastinum demonstrates no definite suspicious masses or adenopathy. Cardiomegaly is noted. There is a mild to moderate right-sided pleural effusion and mild to moderate residual left sided hydropneumothorax with a left-sided chest tube in place. Some volume loss is noted on the left side. The visualizedportions of the upper abdomen are unremarkable. Extensive, diffuse anasarca is seen. The tracheobronchial tree is clear with no endobronchial lesions. The pulmonary parenchyma demonstrates extensive areas of atelectasis or consolidation with near-complete atelectasis of the left lung. Areas of subpleural nodularity are seen in the right lung. A 1 cm nodule is seen in the right upper lobe abutting theoblique fissure. Scattered groundglass opacities are seen. Bone windows demonstrate no focal abnormality. IMPRESSION:1. Mild to moderate right-sided pleural effusion and mild to moderate left-sided hydropneumothorax with a left-sided chest tube in place.2. Extensive areas of atelectasis or consolidation, particularly the left lung which is nearly completely atelectatic nature with only a small aerated portion.3. Other scattered groundglass opacities and some subpleural nodularity.4. Diffuse anasarca. Signed: Lonnie Hernandez MDReport Verified Date/Time: 06/27/2017 22:28 :12 Reading Location: [address] Consult Reading Room POCT-GLUCOSE [id number] 21:41:00 Test Item Value Reference Range Comments POC-GLUCOSE METER (BEAKER) 184 mg/dL 70-110 TESTED AT [address] (test figv=6901) [facility] [address] POCT-GLUCOSE [id number] 17:20:00 Test Item Value Reference Range Comments POC-GLUCOSE METER (BEAKER) 124 mg/dL 70-110 TESTED AT [address] (test sufo=5081) [facility] [address] POCT-GLUCOSE [id number] 12:06:00 Test Item Value Reference Range Comments POC-GLUCOSE METER (BEAKER) 122 mg/dL 70-110 TESTED AT [address] (test yxct=1213) [place] [id number] HEMOGLOBIN [id number] 11:32:00 Test Item Value Reference Range Comments HEMOGLOBIN A1C (BEAKER) (test eunu=824) 7.0 % 4.3-6.1 RAD, CHEST, 1 VIEW, NON [id number] 08:02:00Reason for exam:->Eval pleural effusionShould this be performed at the bedside?->YesFINAL REPORT Chest one view INDICATION: Pleural effusion COMPARISON: IMPRESSION: A pigtail catheter overlies the left chest, presumably a pleural catheter. Substantial left chest opacification reflects a partially loculated pleural effusion and adjacent lung consolidation and/or atelectasis. Partially loculated pleural gas cannot be excluded. Consider chest CT. The cardiac silhouette is enlarged. There is vascular congestion with right lung opacity suggestive of edema and atelectasis. Pneumonitis should be excluded clinically. A small right pleural effusion is present. The bones appear intact. Signed: Alexis Desai [facility] Verified Date/Time: 06/27/2017 08:02:11 Reading Location: [facility] Radiology Reading Room [id number] 05:48:00 Test Item Value Reference Range Comments FERRITIN (BEAKER) (test xryk=456) 1317 ng/mL 5-275 VITAMIN D, [id number] 05:48:00 Test Item Value Reference Range Comments VITAMIN D 25-OH (BEAKER) (test dxyk=6548) 15.7 ng/mL 6.6-49.9 Effective 11/15/2016: Reference Range ChangeNew: 6.6-49.9 ng/mL Previous: 13.0 -47.8 ng/mLRecommended Vitamin D Target Range: 30.0-40.0 ng/mLBASIC METABOLIC [id number] 05:38:00 Test Item Value Reference Range Comments SODIUM (BEAKER) (test 140 meq/L 136-145 ezpy=812) POTASSIUM (BEAKER) (test 4.8 meq/L 3.5-5.1 xznf=820) CHLORIDE (BEAKER) (test 100 meq/L 98-107 eoid=086) CO2 (BEAKER) (test 26 meq/L 22-29 gijz=069) BLOOD UREA NITROGEN 21 mg/dL 7-21 (BEAKER) (test rnce=532) CREATININE (BEAKER) (test 5.97 mg/dL 0.57-1.25 grck=942) GLUCOSE RANDOM (BEAKER) 98 mg/dL 70-105 (test czui=108) CALCIUM (BEAKER) (test 8.5 mg/dL 8.4-10.2 vwce=083) EGFR (BEAKER) (test 10 mL/min/1.73 sq m ESTIMATED GFR IS NOT ttko=9932) ACCURATE CREATININE CLEARANCE IN PREDICTING GLOMERULAR FILTRATION RATE. ESTIMATED GFR IS NOT APPLICABLE FOR DIALYSIS PATIENTS. [id number] 05:35:00 Test Item Value Reference Range Comments PHOSPHORUS (BEAKER) (test nsgi=729) 3.8 mg/dL 2.3-4.7 [id number] 05:35:00 Test Item Value Reference Range Comments MAGNESIUM (BEAKER) (test zyiv=555) 2.2 mg/dL 1.6-2.6 VANCOMYCIN LEVEL, [id number] 05:27:00 Test Item Value Reference Range Comments VANCOMYCIN RANDOM (BEAKER) (test hoko=098) < ug/mL Reference Range: No NormalsPTH, [id number] 05:27:00 Test Item Value Reference Range Comments PARATHYROID HORMONE INTACT (BEAKER) (test 330.0 pg/mL 8.5-72.5 zrkz=690) IRON, TIBC, % SAT. (WITHOUT FERRITIN)2017-06-27 05:26:00 Test Item Value Reference Range Comments IRON (BEAKER) (test ixlz=280) 35 ug/dL 40-160 TOTAL IRON BINDING CAPACITY (BEAKER) (test 121 ug/dL 250-450 accd=930) IRON % SATURATION (2) (BEAKER) (test ewbz=4475) 29 % 20-55 CBC W/PLT COUNT & AUTO [id number] 05:05:00 Test Item Value Reference Range Comments WHITE BLOOD CELL COUNT (BEAKER) (test lcra=029) 8.8 K/ L 3.5-10.5 RED BLOOD CELL COUNT (BEAKER) (test nfhi=991) 3.30 M/ L 4.63-6.08 HEMOGLOBIN (BEAKER) (test bbfk=109) 8.7 GM/DL 13.7-17.5 HEMATOCRIT (BEAKER) (test ejcr=125) 29.2 % 40.1-51.0 MEAN CORPUSCULAR VOLUME (BEAKER) (test vtwo=720) 88.5 fL 79.0-92.2 MEAN CORPUSCULAR HEMOGLOBIN (BEAKER) (test 26.4 pg 25.7-32.2 yadn=308) MEAN CORPUSCULAR HEMOGLOBIN CONC (BEAKER) (test 29.8 GM/DL 32.3-36.5 ztuy=300) RED CELL DISTRIBUTION WIDTH (BEAKER) (test 14.6 % 11.6-14.4 huri=204) PLATELET COUNT (BEAKER) (test wnfl=688) 181 K/CU MM 150-450 MEAN PLATELET VOLUME (BEAKER) (test cqqm=591) 13.5 fL 9.4-12.4 NUCLEATED RED BLOOD CELLS (BEAKER) (test 0 /100 WBC 0-0 dnyz=560) NEUTROPHILS RELATIVE PERCENT (BEAKER) (test 74 % thfp=445) LYMPHOCYTES RELATIVE PERCENT (BEAKER) (test 12 % yiyv=104) MONOCYTES RELATIVE PERCENT (BEAKER) (test 7 % sajv=967) EOSINOPHILS RELATIVE PERCENT (BEAKER) (test 7 % sxgf=757) BASOPHILS RELATIVE PERCENT (BEAKER) (test 1 % itpo=007) NEUTROPHILS ABSOLUTE COUNT (BEAKER) (test 6.43 K/ L 1.78-5.38 dgti=852) LYMPHOCYTES ABSOLUTE COUNT (BEAKER) (test 1.03 K/ L 1.32-3.57 quls=694) MONOCYTES ABSOLUTE COUNT (BEAKER) (test 0.59 K/ L 0.30-0.82 vqxj=835) EOSINOPHILS ABSOLUTE COUNT (BEAKER) (test 0.60 K/ L 0.04-0.54 pvca=425) BASOPHILS ABSOLUTE COUNT (BEAKER) (test 0.08 K/ L 0.01-0.08 dccv=587) IMMATURE GRANULOCYTES-RELATIVE PERCENT (BEAKER) 0 % 0-1 (test arvy=0592) POCT-GLUCOSE [id number] 23:38:00 Test Item Value Reference Range Comments POC-GLUCOSE METER (BEAKER) 99 mg/dL 70-110 TESTED AT [address] (test mxqy=7462) [facility] [id number] [id number] 12:02:00 Test Item Value Reference Range Comments THYROID STIMULATING HORMONE (BEAKER) (test 3.60 uIU/mL 0.35-4.94 qore=724) BASIC METABOLIC [id number] 10:05:00 Test Item Value Reference Range Comments SODIUM (BEAKER) (test 137 meq/L 136-145 offf=822) POTASSIUM (BEAKER) (test 4.8 meq/L 3.5-5.1 wjnq=426) CHLORIDE (BEAKER) (test 97 meq/L 98-107 vkls=089) CO2 (BEAKER) (test 26 meq/L 22-29 ahmm=771) BLOOD UREA NITROGEN 29 mg/dL 7-21 (BEAKER) (test znma=449) CREATININE (BEAKER) (test 5.65 mg/dL 0.57-1.25 phgs=813) GLUCOSE RANDOM (BEAKER) 194 mg/dL 70-105 (test vurt=492) CALCIUM (BEAKER) (test 9.3 mg/dL 8.4-10.2 lhug=437) EGFR (BEAKER) (test 11 mL/min/1.73 sq m ESTIMATED GFR IS NOT wzky=6410) ACCURATE CREATININE CLEARANCE IN PREDICTING GLOMERULAR FILTRATION RATE. ESTIMATED GFR IS NOT APPLICABLE FOR DIALYSIS PATIENTS. B-TYPE NATRIURETIC FACTOR (BNP)2017-02-23 09:58:00 Test Item Value Reference Range Comments B-TYPE NATRIURETIC PEPTIDE (BEAKER) (test 875 pg/mL 0-100 qmyx=612) LIPID [id number] 09:55:00 Test Item Value Reference Range Comments TRIGLYCERIDES (BEAKER) (test hjug=115) 102 mg/dL CHOLESTEROL (BEAKER) (test jxgn=532) 166 mg/dL HDL CHOLESTEROL (BEAKER) (test vcxq=037) 55 mg/dL LDL CHOLESTEROL CALCULATED (BEAKER) (test 91 mg/dL esho=834) Triglyceride Reference Range: Low Risk <150 Borderline 150- 199 High Risk 200-499 Very High Risk >=500Cholesterol Reference Range: Low Risk <200 Borderline 200-239 High Risk > 240HDL Cholesterol Reference Range: Low Risk >=60 High Risk <40LDL Cholesterol Reference Range: Optimal <100 Near Optimal 100-129 Borderline 130-159 High 160-189 Very High >=190HEPATIC FUNCTION [id number] 09:55:00 Test Item Value Reference Range Comments TOTAL PROTEIN (BEAKER) (test iwvq=969) 7.8 gm/dL 6.0-8.3 ALBUMIN (BEAKER) (test rpdx=5085) 3.9 g/dL 3.5-5.0 BILIRUBIN TOTAL (BEAKER) (test dbiv=032) 0.6 mg/dL 0.2-1.2 BILIRUBIN DIRECT (BEAKER) (test uksl=297) 0.2 mg/dL 0.1-0.5 ALKALINE PHOSPHATASE (BEAKER) (test bgrh=585) 112 U/L 40-150 AST (SGOT) (BEAKER) (test svfe=781) 12 U/L 5-34 ALT (SGPT) (BEAKER) (test wgch=296) 8 U/L 6-55 CBC W/PLT COUNT & AUTO [id number] 09:04:00 Test Item Value Reference Range Comments WHITE BLOOD CELL COUNT (BEAKER) (test npjg=046) 8.7 K/ L 3.5-10.5 RED BLOOD CELL COUNT (BEAKER) (test dqjq=735) 4.15 M/ L 4.63-6.08 HEMOGLOBIN (BEAKER) (test bkxe=459) 11.7 GM/DL 13.7-17.5 HEMATOCRIT (BEAKER) (test cjab=130) 35.8 % 40.1-51.0 MEAN CORPUSCULAR VOLUME (BEAKER) (test bcwd=571) 86.3 fL 79.0-92.2 MEAN CORPUSCULAR HEMOGLOBIN (BEAKER) (test 28.2 pg 25.7-32.2 ggtg=708) MEAN CORPUSCULAR HEMOGLOBIN CONC (BEAKER) (test 32.7 GM/DL 32.3-36.5 thxv=426) RED CELL DISTRIBUTION WIDTH (BEAKER) (test 13.2 % 11.6-14.4 ccer=423) PLATELET COUNT (BEAKER) (test atml=052) 174 K/CU MM 150-450 MEAN PLATELET VOLUME (BEAKER) (test ogoh=779) 12.4 fL 9.4-12.4 NUCLEATED RED BLOOD CELLS (BEAKER) (test 0 /100 WBC 0-0 tnos=506) NEUTROPHILS RELATIVE PERCENT (BEAKER) (test 65 % lqvu=019) LYMPHOCYTES RELATIVE PERCENT (BEAKER) (test 21 % qqnh=578) MONOCYTES RELATIVE PERCENT (BEAKER) (test 9 % okio=193) EOSINOPHILS RELATIVE PERCENT (BEAKER) (test 4 % hzla=636) BASOPHILS RELATIVE PERCENT (BEAKER) (test 1 % bccp=993) NEUTROPHILS ABSOLUTE COUNT (BEAKER) (test 5.66 K/ L 1.78-5.38 drdy=898) LYMPHOCYTES ABSOLUTE COUNT (BEAKER) (test 1.78 K/ L 1.32-3.57 jjfx=537) MONOCYTES ABSOLUTE COUNT (BEAKER) (test 0.80 K/ L 0.30-0.82 mksm=135) EOSINOPHILS ABSOLUTE COUNT (BEAKER) (test 0.30 K/ L 0.04-0.54 kown=771) BASOPHILS ABSOLUTE COUNT (BEAKER) (test 0.09 K/ L 0.01-0.08 blal=305) IMMATURE GRANULOCYTES-RELATIVE PERCENT (BEAKER) 1 % 0-1 (test tnct=1932) HLA [id number] 15:01:00 Test Item Value Reference Range Comments HLA RESULT (BEAKER) (test jjrr=2460) See Scanned Report HLA-A AG1 (BEAKER) (test zssl=3942) HLA-A AG2 (BEAKER) (test bfmo=5892) HLA-B AG1 (BEAKER) (test terf=2213) HLA-B AG2 (BEAKER) (test eciy=1959) HLA-C AG1 (BEAKER) (test gkhr=5321) HLA-C AG2 (BEAKER) (test phja=4437) HLA-DR AG1 (BEAKER) (test jaxa=7599) HLA-DR AG2 (BEAKER) (test yalh=4271) HLA-DQ AG1 (BEAKER) (test wibr=6712) HLA-DQ AG2 (BEAKER) (test tdia=8696) HLA-DRW (BEAKER) (test tugy=7565) FLOW PRA CLASS I AND [id number] 08:31:00 Test Item Value Reference Range Comments DATE OF SERUM (BEAKER) (test chkr=0339) [id number] SERUM # (BEAKER) (test vyxp=1785) [id number] FLOW PRA CLASS I AND II (test tics=4877) See Scanned Report VARICELLA ZOSTER ANTIBODY, [id number] 10:13:00 Test Item Value Reference Range Comments VARICELLA ZOSTER IGG (AL) (BEAKER) (test xavu=7605) 3.0 Al VARICELLA ZOSTER RESULT INTERPRETATIONS: <=0.8 Al Nonreactive: Presumed non-immune to VZV 0.9-1.0 Al Equivocal >=1.1 Al Reactive: Presumed immune to VZVCYTOMEGALOVIRUS ANTIBODY, [id number] 10:04:00 Test Item Value Reference Range Comments CYTOMEGALOVIRUS IGG ANTIBODY (BEAKER) (test Negative faab=848) CYTOMEGALOVIRUS ANTIBODY, [id number] 10:04:00 Test Item Value Reference Range Comments CYTOMEGALOVIRUS IGM ANTIBODY (BEAKER) (test Negative lajz=791) EBV-VCA ANTIBODY, [id number] 10:04:00 Test Item Value Reference Range Comments PAULY-BOB VCA IGG (BEAKER) (test rbkp=920) Positive EBV-VCA ANTIBODY, [id number] 10:04:00 Test Item Value Reference Range Comments PAULY-BOB VCA IGM (BEAKER) (test sqog=239) Negative URINE [id number] 13:00:00 Test Item Value Reference Range Comments CULTURE (BEAKER) (test ebpr=4831) No growth [id number] 06:05:00 Test Item Value Reference Range Comments RPR SCREEN (BEAKER) (test jehu=532) Nonreactive Nonreactive HEMOGLOBIN [id number] 14:45:00 Test Item Value Reference Range Comments HEMOGLOBIN A1C (BEAKER) (test ccqv=047) 7.9 % 4.3-6.1 URINALYSIS W/ [id number] 11:34:00 Test Item Value Reference Range Comments COLOR (BEAKER) (test eotr=029) Yellow CLARITY (BEAKER) (test hbhs=364) Clear SPECIFIC GRAVITY UA (BEAKER) (test csin=064) 1.017 1.001-1.035 PH UA (BEAKER) (test ebeu=170) 8.5 5.0-8.0 PROTEIN UA (BEAKER) (test svyj=673) >600 mg/dL Negative GLUCOSE UA (BEAKER) (test toij=882) 200 mg/dL Negative KETONES UA (BEAKER) (test ssrm=830) Negative Negative BILIRUBIN UA (BEAKER) (test deqo=647) Negative Negative BLOOD UA (BEAKER) (test opnc=151) Small Negative NITRITE UA (BEAKER) (test cryv=426) Negative Negative LEUKOCYTE ESTERASE UA (BEAKER) (test ayfy=961) Negative Negative UROBILINOGEN UA (BEAKER) (test uuzu=022) 0.2 mg/dL 0.2-1.0 RBC UA (BEAKER) (test xicn=512) 21 /HPF WBC UA (BEAKER) (test ygyn=624) 2 /HPF HYALINE CASTS (BEAKER) (test cvwp=911) 5 /LPF SOURCE(BEAKER) (test pbmi=6243) HEPATITIS B SURFACE [id number] 11:03:00 Test Item Value Reference Range Comments HEPATITIS B SURFACE ANTIGEN (2) (BEAKER) (test Nonreactive Nonreactive sscd=9931) HEPATITIS B SURFACE [id number] 11:03:00 Test Item Value Reference Range Comments HEPATITIS B SURFACE ANTIBODY (BEAKER) (test 78.1 mIU/mL <8.0 tjuj=053) HEPATITIS B CORE ANTIBODY, [id number] 11:03:00 Test Item Value Reference Range Comments HEPATITIS B CORE IGM ANTIBODY (BEAKER) (test Nonreactive Nonreactive kdch=405) HEPATITIS C [id number] 11:03:00 Test Item Value Reference Range Comments HEPATITIS C ANTIBODY (BEAKER) (test jndz=727) Nonreactive Nonreactive HIV-1 ANTIGEN WITH HIV-1/2 [id number] 11:03:00 Test Item Value Reference Range Comments HIV-1 ANTIGEN WITH HIV 1\\T\\2 ANTIBODY (2) Nonreactive Nonreactive (BEAKER) (test uvoq=9668) COMPREHENSIVE METABOLIC [id number] 10:45:00 Test Item Value Reference Range Comments TOTAL PROTEIN (BEAKER) 7.3 gm/dL 6.0-8.3 (test okfa=133) ALBUMIN (BEAKER) (test 3.8 g/dL 3.5-5.0 sjsk=1535) ALKALINE PHOSPHATASE 119 U/L 40-150 (BEAKER) (test qcri=601) BILIRUBIN TOTAL (BEAKER) 0.5 mg/dL 0.2-1.2 (test vaha=080) SODIUM (BEAKER) (test 140 meq/L 136-145 jbxr=904) POTASSIUM (BEAKER) (test 4.1 meq/L 3.5-5.1 jrxd=417) CHLORIDE (BEAKER) (test 98 meq/L 98-107 joqf=576) CO2 (BEAKER) (test 34 meq/L 22-29 xnwf=079) BLOOD UREA NITROGEN 17 mg/dL 7-21 (BEAKER) (test swju=662) CREATININE (BEAKER) (test 5.48 mg/dL 0.57-1.25 psea=619) GLUCOSE RANDOM (BEAKER) 102 mg/dL 70-105 (test itvj=683) CALCIUM (BEAKER) (test 9.4 mg/dL 8.4-10.2 tizn=207) AST (SGOT) (BEAKER) (test 13 U/L 5-34 ooeu=081) ALT (SGPT) (BEAKER) (test 8 U/L 6-55 qbea=921) EGFR (BEAKER) (test 12 mL/min/1.73 sq m ESTIMATED GFR IS NOT sqoa=4279) ACCURATE CREATININE CLEARANCE IN PREDICTING GLOMERULAR FILTRATION RATE. ESTIMATED GFR IS NOT APPLICABLE FOR DIALYSIS PATIENTS. PTH, [id number] 10:33:00 Test Item Value Reference Range Comments PARATHYROID HORMONE INTACT (BEAKER) (test 335.9 pg/mL 8.5-72.5 bwrz=313) URIC [id number] 10:27:00 Test Item Value Reference Range Comments URIC ACID (BEAKER) (test sgbq=296) 3.8 mg/dL 2.6-7.2 [id number] 10:27:00 Test Item Value Reference Range Comments PHOSPHORUS (BEAKER) (test khxt=913) 2.9 mg/dL 2.3-4.7 LIPID [id number] 10:27:00 Test Item Value Reference Range Comments TRIGLYCERIDES (BEAKER) (test qzbg=750) 79 mg/dL CHOLESTEROL (BEAKER) (test fquz=598) 156 mg/dL HDL CHOLESTEROL (BEAKER) (test wkbn=488) 49 mg/dL LDL CHOLESTEROL CALCULATED (BEAKER) (test 91 mg/dL mqsm=818) Triglyceride Reference Range: Low Risk <150 Borderline [...] Range Comments GAMMA GLUTAMYL TRANSFERASE (BEAKER) (test qasl=708) 32 U/L 9-64 LACTATE DEHYDROGENASE (LDH)2016-11-17 10:27:00 Test Item Value Reference Range Comments LACTATE DEHYDROGENASE (BEAKER) (test yvmb=166) 252 U/L 125-220 [id number] 10:11:00 Test Item Value Reference Range Comments PROTIME (BEAKER) (test vqob=873) 14.3 seconds 11.7-14.7 INR (BEAKER) (test blhm=938) 1.1 <=5.9 PARTIAL THROMBOPLASTIN TIME (BEAKER) (test 32.2 seconds 22.5-36.0 ugap=364) RECOMMENDED COUMADIN/WARFARIN INR THERAPY RANGESSTANDARD DOSE: 2.0 - 3.0 Includes: PROPHYLAXIS forvenous thrombosis, systemic embolization; TREATMENT for venous thrombosis and/or pulmonary embolus.HIGH RISK: Target INR is 2.5-3.5 for patients with mechanical heart valves.CBC W/PLT COUNT & AUTO [id number] 10:05:00 Test Item Value Reference Range Comments WHITE BLOOD CELL COUNT (BEAKER) (test rfph=153) 7.0 K/ L 3.5-10.5 RED BLOOD CELL COUNT (BEAKER) (test uaco=099) 4.06 M/ L 4.63-6.08 HEMOGLOBIN (BEAKER) (test nmip=139) 11.5 GM/DL 13.7-17.5 HEMATOCRIT (BEAKER) (test scxu=366) 36.6 % 40.1-51.0 MEAN CORPUSCULAR VOLUME (BEAKER) (test fxgf=935) 90.1 fL 79.0-92.2 MEAN CORPUSCULAR HEMOGLOBIN (BEAKER) (test 28.3 pg 25.7-32.2 ufxv=577) MEAN CORPUSCULAR HEMOGLOBIN CONC (BEAKER) (test 31.4 GM/DL 32.3-36.5 xxsc=456) RED CELL DISTRIBUTION WIDTH (BEAKER) (test 15.1 % 11.6-14.4 eozm=186) PLATELET COUNT (BEAKER) (test uxdm=890) 222 K/CU MM 150-450 MEAN PLATELET VOLUME (BEAKER) (test tplt=760) 12.7 fL 9.4-12.4 NUCLEATED RED BLOOD CELLS (BEAKER) (test 0 /100 WBC 0-0 wdsm=851) NEUTROPHILS RELATIVE PERCENT (BEAKER) (test 61 % qded=542) LYMPHOCYTES RELATIVE PERCENT (BEAKER) (test 24 % bqcl=986) MONOCYTES RELATIVE PERCENT (BEAKER) (test 9 % xltt=020) EOSINOPHILS RELATIVE PERCENT (BEAKER) (test 6 % vldn=051) BASOPHILS RELATIVE PERCENT (BEAKER) (test 1 % stce=264) NEUTROPHILS ABSOLUTE COUNT (BEAKER) (test 4.23 K/ L 1.78-5.38 miiu=555) LYMPHOCYTES ABSOLUTE COUNT (BEAKER) (test 1.66 K/ L 1.32-3.57 mjip=035) MONOCYTES ABSOLUTE COUNT (BEAKER) (test 0.62 K/ L 0.30-0.82 dmeb=061) EOSINOPHILS ABSOLUTE COUNT (BEAKER) (test 0.40 K/ L 0.04-0.54 lejj=564) BASOPHILS ABSOLUTE COUNT (BEAKER) (test 0.08 K/ L 0.01-0.08 efnj=254) IMMATURE GRANULOCYTES-RELATIVE PERCENT (BEAKER) 0 % 0-1 (test qxfz=9439) OCCULT BLOOD, [id number] 23:03:00 Test Item Value Reference Range Comments FECAL OCCULT BLOOD (BEAKER) (test quqy=576) Negative Negative OCCULT BLOOD, [id number] 23:03:00 Test Item Value Reference Range Comments FECAL OCCULT BLOOD (BEAKER) (test bxes=594) Negative Negative PET, CARDIAC PERFUSION MULTIPLE STUDIES, REST AND [id number] 14:10: 00Reason for Exam:->ESRD/KIDNEY TRANSPLANT EVALFINAL REPORT PROCEDURE: Rest/Stress MYOCARDIAL PERFUSION PET with regadenoson\\ XA9\\ CPT CODE: [id number] INDICATION: End-stage renal disease, preoperative evaluation for [...] Normal extracardiac tracer distribution. 6. No previous [facility] study for comparison. NONINVASIVE RISK STRATIFICATION: The above findings are considered low risk(<1% annual mortality rate) based on the following criterion:- Normal or small myocardial perfusion defect at rest or with stress( JACC. 2012;59(9):857-81.) Signed: Nicolas Kimble Verified Date/Time: 14:10:21 Reading Location: [address] Reading Room [place], CYSTOGRAM, CINE OR VIDEO, [id number] 13:04:00Reason for Exam:->kidney transplant evaluationFINAL REPORT VCUG: [...] is noted. Impression: Normal VCUG Signed: Kevin lAmanza MDReport Verified Date/Time: 10/11/2016 13:04:21 Reading Location: [facility] C013X [facility] Consult Reading Room Electronically signed by: KEVIN ALMANZA M.D. on 2016 01:04 PMVARICELLA ZOSTER ANTIBODY, [id number] 16:40:00 Test Item Value Reference Range Comments VARICELLA ZOSTER IGG (AL) (BEAKER) (test zrbf=0685) 2.8 Al VARICELLA ZOSTER RESULT INTERPRETATIONS: <=0.8 Al Nonreactive: Presumed non-immune to VZV 0.9-1.0 Al Equivocal >=1.1 Al Reactive: Presumed immune to VZVCYTOMEGALOVIRUS ANTIBODY, [id number] 06:52:00 Test Item Value Reference Range Comments CYTOMEGALOVIRUS IGG ANTIBODY (BEAKER) (test Negative pcpq=425) CYTOMEGALOVIRUS ANTIBODY, [id number] 06:52:00 Test Item Value Reference Range Comments CYTOMEGALOVIRUS IGM ANTIBODY (BEAKER) (test Negative nteh=106) EBV-VCA ANTIBODY, [id number] 06:52:00 Test Item Value Reference Range Comments PAULY-BOB VCA IGG (BEAKER) (test icgp=075) Positive EBV-VCA ANTIBODY, [id number] 06:52:00 Test Item Value Reference Range Comments PAULY-BOB VCA IGM (BEAKER) (test lplc=286) Negative URINE [id number] 12:59:00 Test Item Value Reference Range Comments CULTURE (BEAKER) (test iypg=4728) No growth HEPATITIS B SURFACE [id number] 13:18:00 Test Item Value Reference Range Comments HEPATITIS B SURFACE ANTIGEN Reactive Nonreactive Reactive Hepatitis B Surface (2) (BEAKER) (test Antigen result; Confirmed by cvou=4798) Hepatitis B Surface Antigen Neutralization testing. [id number] 11:51:00 Test Item Value Reference Range Comments RPR SCREEN (BEAKER) (test czmw=484) Nonreactive Nonreactive HEMOGLOBIN [id number] 11:05:00 Test Item Value Reference Range Comments HEMOGLOBIN A1C (BEAKER) (test lnnz=412) 8.2 % 4.3-6.1 HEPATITIS B SURFACE [id number] 10:37:00 Test Item Value Reference Range Comments HEPATITIS B SURFACE ANTIBODY (BEAKER) (test < mIU/mL <8.0 zgui=542) PTH, [id number] 10:24:00 Test Item Value Reference Range Comments PARATHYROID HORMONE INTACT (BEAKER) (test 424.7 pg/mL 8.5-72.5 gizs=403) Effective 12/23/2013: Reference Range ChangeNew: 8.5-72.5 Previous: 15.0- 90.0URINALYSIS W/ [id number] 10:19:00 Test Item Value Reference Range Comments COLOR (BEAKER) (test odvc=845) Yellow CLARITY (BEAKER) (test brjt=169) Clear SPECIFIC GRAVITY UA (BEAKER) (test svsl=567) 1.013 1.001-1.035 PH UA (BEAKER) (test qtsv=203) 7.5 5.0-8.0 PROTEIN UA (BEAKER) (test qiuy=701) 600 mg/dL Negative GLUCOSE UA (BEAKER) (test ykjy=987) >1000 mg/dL Negative KETONES UA (BEAKER) (test abtz=946) Negative Negative BILIRUBIN UA (BEAKER) (test eqku=283) Negative Negative BLOOD UA (BEAKER) (test mone=043) Moderate Negative NITRITE UA (BEAKER) (test fijx=874) Negative Negative LEUKOCYTE ESTERASE UA (BEAKER) (test ihad=685) Negative Negative UROBILINOGEN UA (BEAKER) (test sklw=086) 0.2 mg/dL 0.2-1.0 RBC UA (BEAKER) (test nzkz=579) 9 /HPF WBC UA (BEAKER) (test femc=989) 3 /HPF HYALINE CASTS (BEAKER) (test zpxz=988) 2 /LPF SOURCE(BEAKER) (test nszo=3001) HEPATITIS B CORE ANTIBODY, [id number] 09:46:00 Test Item Value Reference Range Comments HEPATITIS B CORE IGM ANTIBODY (BEAKER) (test Nonreactive Nonreactive oahk=559) HEPATITIS C [id number] 09:46:00 Test Item Value Reference Range Comments HEPATITIS C ANTIBODY (BEAKER) (test axcd=678) Nonreactive Nonreactive HIV-1 ANTIGEN WITH HIV-1/2 [id number] 09:46:00 Test Item Value Reference Range Comments HIV-1 ANTIGEN WITH HIV 1\\T\\2 ANTIBODY (2) Nonreactive Nonreactive (BEAKER) (test zzzt=8290) COMPREHENSIVE METABOLIC [id number] 09:33:00 Test Item Value Reference Range Comments TOTAL PROTEIN (BEAKER) 6.5 gm/dL 6.0-8.3 (test niob=578) ALBUMIN (BEAKER) (test 3.4 g/dL 3.5-5.0 chsi=3085) ALKALINE PHOSPHATASE 97 U/L 40-150 (BEAKER) (test nhyq=247) BILIRUBIN TOTAL (BEAKER) 0.5 mg/dL 0.2-1.2 (test ncaj=672) SODIUM (BEAKER) (test 136 meq/L 136-145 wplc=035) POTASSIUM (BEAKER) (test 3.1 meq/L 3.5-5.1 lenv=563) CHLORIDE (BEAKER) (test 97 meq/L 98-107 nmle=747) CO2 (BEAKER) (test 28 meq/L 22-29 eyjw=937) BLOOD UREA NITROGEN 31 mg/dL 7-21 (BEAKER) (test cewo=921) CREATININE (BEAKER) (test 5.55 mg/dL 0.57-1.25 oqid=953) GLUCOSE RANDOM (BEAKER) 226 mg/dL 70-105 (test fskw=286) CALCIUM (BEAKER) (test 8.5 mg/dL 8.4-10.2 aogp=640) AST (SGOT) (BEAKER) (test 14 U/L 5-34 igxo=431) ALT (SGPT) (BEAKER) (test 8 U/L 6-55 zxdq=999) EGFR (BEAKER) (test 11 mL/min/1.73 sq m ESTIMATED GFR IS NOT sqnz=5819) ACCURATE CREATININE CLEARANCE IN PREDICTING GLOMERULAR FILTRATION RATE. ESTIMATED GFR IS NOT APPLICABLE FOR DIALYSIS PATIENTS. [id number] 09:30:00 Test Item Value Reference Range Comments PROTIME (BEAKER) (test bojl=259) 13.7 seconds 11.7-14.7 INR (BEAKER) (test dbsg=122) 1.1 <=5.9 PARTIAL THROMBOPLASTIN TIME (BEAKER) (test 28.7 seconds 22.5-36.0 bdmv=401) RECOMMENDED COUMADIN/WARFARIN INR THERAPY RANGESSTANDARD DOSE: 2.0 - 3.0 Includes: PROPHYLAXIS forvenous thrombosis, systemic embolization; TREATMENT for venous thrombosis and/or pulmonary embolus.HIGH RISK: Target INR is 2.5-3.5 for patients with mechanical heart valves.URIC [id number] 09:27:00 Test Item Value Reference Range Comments URIC ACID (BEAKER) (test zngt=883) 3.9 mg/dL 2.6-7.2 [id number] 09:27:00 Test Item Value Reference Range Comments PHOSPHORUS (BEAKER) (test tkah=749) 3.9 mg/dL 2.3-4.7 GAMMA GLUTAMYL TRANSFERASE (GGT)2016-08-16 09:27:00 Test Item Value Reference Range Comments GAMMA GLUTAMYL TRANSFERASE (BEAKER) (test fvan=164) 34 U/L 9-64 LACTATE DEHYDROGENASE (LDH)2016-08-16 09:27:00 Test Item Value Reference Range Comments LACTATE DEHYDROGENASE (BEAKER) (test gvqe=931) 237 U/L 125-220 CBC W/PLT COUNT & AUTO [id number] 09:23:00 Test Item Value Reference Range Comments WHITE BLOOD CELL COUNT (BEAKER) (test lwtb=809) 7.3 K/ L 4.0-10.0 RED BLOOD CELL COUNT (BEAKER) (test mqms=145) 4.49 M/ L 4.20-5.80 HEMOGLOBIN (BEAKER) (test safa=450) 13.8 GM/DL 13.0-16.8 HEMATOCRIT (BEAKER) (test admw=909) 41.0 % 40.0-50.0 MEAN CORPUSCULAR VOLUME (BEAKER) (test mnzs=165) 91.3 fL 82.0-98.0 MEAN CORPUSCULAR HEMOGLOBIN (BEAKER) (test 30.7 pg 27.0-33.0 ziyn=824) MEAN CORPUSCULAR HEMOGLOBIN CONC (BEAKER) (test 33.7 GM/DL 32.0-36.0 ocpq=691) RED CELL DISTRIBUTION WIDTH (BEAKER) (test 15.5 % 10.3-14.2 dkju=697) PLATELET COUNT (BEAKER) (test owrq=912) 169 K/CU MM 150-430 MEAN PLATELET VOLUME (BEAKER) (test kqvi=725) 10.9 fL 6.5-10.5 NUCLEATED RED BLOOD CELLS (BEAKER) (test 0 /100 WBC 0-0 amvg=902) NEUTROPHILS RELATIVE PERCENT (BEAKER) (test 64 % ijgy=879) LYMPHOCYTES RELATIVE PERCENT (BEAKER) (test 23 % qhyc=474) MONOCYTES RELATIVE PERCENT (BEAKER) (test 8 % ubjl=076) EOSINOPHILS RELATIVE PERCENT (BEAKER) (test 4 % yatp=944) BASOPHILS RELATIVE PERCENT (BEAKER) (test 1 % thjc=170) NEUTROPHILS ABSOLUTE COUNT (BEAKER) (test 4.68 K/ L 1.80-8.00 gxlf=714) LYMPHOCYTES ABSOLUTE COUNT (BEAKER) (test 1.66 K/ L 1.48-4.50 dncc=509) MONOCYTES ABSOLUTE COUNT (BEAKER) (test 0.57 K/ L 0.00-1.30 foyt=766) EOSINOPHILS ABSOLUTE COUNT (BEAKER) (test 0.30 K/ L 0.00-0.50 qlbb=599) BASOPHILS ABSOLUTE COUNT (BEAKER) (test 0.06 K/ L 0.00-0.20 owej=876) 0.98GYSR-[id number] 10:56:00 Test Item Value Reference Range Comments POC-POTASSIUM (BEAKER) (test 4.4 meq/L 3.6-5.5 TESTED AT [address] pyed=5141) [facility] [address] POCT-GLUCOSE [id number] 10:52:00 Test Item Value Reference Range Comments POC-GLUCOSE METER (BEAKER) 223 mg/dL 70-110 TESTED AT [address] (test zwqb=8976) [facility] [address] BUN AND [id number] 14:13:00 Test Item Value Reference Range Comments BLOOD UREA NITROGEN 36 mg/dL 7-21 (BEAKER) (test lonj=453) CREATININE (BEAKER) (test 4.50 mg/dL 0.57-1.25 agea=767) EGFR (BEAKER) (test 15 mL/min/1.73 sq m ESTIMATED GFR IS NOT rhzi=3222) ACCURATE CREATININE CLEARANCE IN PREDICTING GLOMERULAR FILTRATION RATE. ESTIMATED GFR IS NOT APPLICABLE FOR DIALYSIS PATIENTS. [id number] 14:03:00 Test Item Value Reference Range Comments SODIUM (BEAKER) (test dgxa=747) 139 meq/L 136-145 POTASSIUM (BEAKER) (test suec=622) 4.2 meq/L 3.5-5.1 CHLORIDE (BEAKER) (test prwy=374) 104 meq/L 98-107 CO2 (BEAKER) (test aicf=865) 27 meq/L 22-29 [id number] 14:00:00 Test Item Value Reference Range Comments GLUCOSE RANDOM (BEAKER) (test esgn=572) 77 mg/dL 70-105 Effective 12/23/2013: Reference Range Change-Adult onlyNew: 70-105 Previous : [id number] 13:51:00 Test Item Value Reference Range Comments HEMOGLOBIN (BEAKER) (test gepv=934) 9.9 GM/DL 13.0-16.8 PLATELET [id number] 13:44:00 Test Item Value Reference Range Comments PLATELET COUNT (BEAKER) (test xojm=610) 131 K/CU MM 150-430 POCT-GLUCOSE [id number] 09:51:00 Test Item Value Reference Range Comments POC-GLUCOSE METER (BEAKER) 210 mg/dL 70-110 TESTED AT [address] (test nhkv=3345) [facility] [address] POCT-GLUCOSE [id number] 07:49:00 Test Item Value Reference Range Comments POC-GLUCOSE METER (BEAKER) 214 mg/dL 70-110 TESTED AT [address] (test cyfe=2288) [facility] [address] [id number] 07:19:00 Test Item Value Reference Range Comments POC-POTASSIUM (BEAKER) (test 5.1 meq/L 3.6-5.[address] [facility] [address] lesp=2[address]) [place] [address] BUN AND [id number] 12:34:00 Test Item Value Reference Range Comments BLOOD UREA NITROGEN 70 mg/dL 7-21 (BEAKER) (test plyp=004) CREATININE (BEAKER) (test 8.17 mg/dL 0.57-1.25 tflo=196) EGFR (BEAKER) (test 7 mL/min/1.73 sq m ESTIMATED GFR IS NOT kwsa=3424) ACCURATE CREATININE CLEARANCE IN PREDICTING GLOMERULAR FILTRATION RATE. ESTIMATED GFR IS NOT APPLICABLE FOR DIALYSIS PATIENTS. [id number] 12:34:00 Test Item Value Reference Range Comments SODIUM (BEAKER) (test dgam=333) 137 meq/L 136-145 POTASSIUM (BEAKER) (test udrn=035) 5.1 meq/L 3.5-5.1 CHLORIDE (BEAKER) (test xfgj=064) 111 meq/L 98-107 CO2 (BEAKER) (test wdsa=725) 15 meq/L 22-29 [id number] 12:29:00 Test Item Value Reference Range Comments GLUCOSE RANDOM (BEAKER) (test stsd=373) 186 mg/dL 70-105 Effective 12/23/2013: Reference Range Change-Adult onlyNew: 70-105 Previous : [id number] 12:21:00 Test Item Value Reference Range Comments HEMOGLOBIN (BEAKER) (test hsbl=042) 9.3 GM/DL 13.0-16.8 PLATELET [id number] 12:19:00 Test Item Value Reference Range Comments PLATELET COUNT (BEAKER) (test zmyp=341) 254 K/CU MM 150-430
[2017-08-06 17:39] LABS: Absolute Lymphocytes (CBC) 0.8 K/uL (0.7-4.9); Absolute Monocytes 1.1 K/uL (0.1-1.3); Absolute Neutrophil 11.2 K/uL (1.8-8.0); Basophils % 0.9 % (0-1.3); Eosinophils % 2.1 % (0-4.4); Hematocrit 28.5 % (39.6-49.0); Lymphocytes % 6.2 % (15.3-44.8); MCH 26.5 pg (27.0-35.0); MPV 9.3 fL (7.6-11.3); Monocytes % 8.1 % (3.3-12.3); Protime INR 1.19; RBC Red Blood Cell Count 3.24 M/uL (4.33-5.43)
--- NOTE | 2017-08-06 18:07 | RAD REPORT ---
EXAM DESCRIPTION: CT - Thorax Wo Con - 08/06/2017 5:58 pm CLINICAL HISTORY: sob COMPARISON: June 2017 TECHNIQUE: Computed axial tomography of the chest was obtained. Contrast was not requested. All CT scans are performed using dose optimization technique as appropriate and may include automated exposure control or mA/KV adjustment according to patient size. FINDINGS: The evaluation of mediastinum, charito and vessels is limited secondary to lack of IV contras t administration. Moderate right and small left pleural effusions are present. Air is present within the left pleural s pace. Right lower lobe atelectasis is seen. Left lower lobe consolidation is seen. The heart is enlarged. A small pericardial effusion is present. Diffuse edema is present within the subcutaneous tissues. IMPRESSION: Moderate right and small left pleural effusions. Air within the left pleural space probably related to instrumentation. Infection can also have this a ppearance. Left lower lobe consolidation probably representing pneumonia
--- NOTE | 2017-08-06 18:12 | RAD REPORT ---
EXAM DESCRIPTION: Leon Single View08/06/2017 5:36 pm CLINICAL HISTORY: Shortness of breath COMPARISON: June 2017 FINDINGS: Moderate right and small left pleural effusions are present. Air is present within the le ft pleural space. Right lower lobe atelectasis is seen. Alveolar opacities are seen within left lower lobe. The heart i s enlarged IMPRESSION: Moderate right and small left pleural effusions Left lower lobe alveolar opacities probably represent pneumonia Air within the left pleural space presumably related to prior instrumentation. Infection can also res ult in this appearance
[2017-08-06] MEDS ORDERED: Levofloxacin500mg IV 500 MG/100 ML BAG IV ONE (18:15)
[2017-08-06 18:20] LABS: Bilirubin Direct 0.1 mg/dL (0-0.2); Bilirubin Total 0.4 mg/dL (0.2-1.0); Magnesium 2.3 mg/dL (1.8-2.4); Potassium 3.7 mmol/L (3.5-5.1)
[2017-08-06] MEDS ORDERED: ONDANSETRON 4 MG/2 ML VIAL IV PRN (18:58)
[2017-08-06] MEDS ORDERED: ACETAMINOPHEN 500 MG TAB PO PRN (18:58)
--- NOTE | 2017-08-06 18:59 | EDPHYS ---
Physician Documentation [facility] Name: Vance Barrera Age: 42 yrs Sex: Male : 1975 Arrival Date: 08/06/2017 Time: 16:42 Bed 26 Private MD: Luisito Hicks ED Physician Roddy Caldwell HPI: 08/06 19:09 This 42 yrs old Male presents to ER via Ambulatory with complaints of jr8 Breathing Difficulty. 19:09 The patient has shortness of breath at rest. Onset: The symptoms/episode began/occurred jr8 acutely, today. Duration: The symptoms are continuous. Associated signs and symptoms: Pertinent positives: This patient does not have any pertinent positive signs or symptoms associated with shortness of breath. Severity of symptoms: At their worst the symptoms were moderate in the emergency department the symptoms are unchanged. The patient has experienced a previous episode. The patient has not recently seen a physician. Patient had recent chest tube about 3 weeks ago for large eft pleural effusion. Had been doing ok since then. Today had shortness of breath. Stated that home health nurse noticed that his oxygen saturation was lower then normal and had decreased left breath sounds. Family brought patient to hospital at that time . Historical: - Allergies: 16:47 No Known Allergies; hj - Home Meds: 19:38 DIALYVITE 800 0.8 mg oral tab [Active]; pravastatin 40 mg oral tab 1 tab once daily tl3 [Active]; sertraline 50 mg oral tab 1 tab once daily [Active]; calcium acetate 667 mg oral cap 2 caps 3 times per day [Active]; mirtazapine 7.5 mg Oral tab 1 tabs once daily [Active]; glipizide 5 mg Oral tr24 1 tab once daily [Active]; amlodipine 10 mg tab 1 tab once daily [Active]; doxazosin 2 mg oral tab 1 tab twice daily [Active]; tramadol 50 mg Oral tab 1 tab three times a day for Pain [Active]; carvedilol 6.25 mg oral tab 1 tab 2 times per day [Active]; - PMHx: 16:47 Diabetes - IDDM; hj 19:40 Pleural Effusions; ESRD; Pneumonia; tl3 - PSHx: 16:47 None; hj - Immunization history:: Adult Immunizations up to date. - Social history:: Smoking status: Patient/guardian denies using tobacco, Patient/guardian denies using alcohol. - Ebola Screening: : Patient negative for fever greater than or equal to 101.5 degrees Fahrenheit, and additional compatible Ebola Virus Disease symptoms Patient denies exposure to infectious person Patient denies travel to an Ebola-affected area in the 21 days before illness onset. ROS: 19:09 Eyes: Negative for injury, pain, redness, and discharge, ENT: Negative for injury, jr8 pain, and discharge, Neck: Negative for injury, pain, and swelling, Cardiovascular: Negative for chest pain, palpitations, and edema, Abdomen/GI: Negative for abdominal pain, nausea, vomiting, diarrhea, and constipation, Back: Negative for injury and pain, MS/Extremity: Negative for injury and deformity, Skin: Negative for injury, rash, and discoloration, Neuro: Negative for headache, weakness, numbness, tingling, and seizure. 19:09 Respiratory: Positive for shortness of breath. Exam: 19:09 Eyes: Pupils equal round and reactive to light, extra-ocular motions intact. Lids and jr8 lashes normal. Conjunctiva and sclera are non-icteric and not injected. Cornea within normal limits. Periorbital areas with no swelling, redness, or edema. ENT: Nares patent. No nasal discharge, no septal abnormalities noted. Tympanic membranes are normal and external auditory canals are clear. Oropharynx with no redness, swelling, or masses, exudates, or evidence of obstruction, uvula midline. Mucous membranes moist. Neck: Trachea midline, no thyromegaly or masses palpated, and no cervical lymphadenopathy. Supple, full range of motion without nuchal rigidity, or vertebral point tenderness. No Meningismus. Cardiovascular: Regular rate and rhythm with a normal S1 and S2. No gallops, murmurs, or rubs. Normal PMI, no JVD. No pulse deficits. Abdomen/GI: Soft, non-tender, with normal bowel sounds. No distension or tympany. No guarding or rebound. No evidence of tenderness throughout. Back: No spinal tenderness. No costovertebral tenderness. Full range of motion. Skin: Warm, dry with normal turgor. Normal color with no rashes, no lesions, and no evidence of cellulitis. MS/ Extremity: Pulses equal, no cyanosis. Neurovascular intact. Full, normal range of motion. Neuro: Awake and alert, GCS 15, oriented to person, place, time, and situation. Cranial nerves II-XII grossly intact. Motor strength 5/5 in all extremities. Sensory grossly intact. Cerebellar exam normal. Normal gait. 19:09 Respiratory: the patient does not display signs of respiratory distress, Respirations: normal, Breath sounds: rales, that are mild, are heard in the left posterior upper lobe and left posterior lower lobe, decreased breath sounds, that are moderate, are heard in the left posterior upper lobe and left posterior lower lobe. Vital Signs: 16:49 BP 114 / 68; Pulse 83; Resp 20; Temp 99.2(O); Pulse Ox 95% on R/A; Weight 40.42 kg; hj Height 5 ft. 4 in. (162.56 cm); Pain 0/10; 17:00 BP 108 / 70; Pulse 58; Resp 18; Pulse Ox 97% on R/A; tl3 18:15 BP 105 / 70; Pulse 58; Resp 18; Pulse Ox 97% on R/A; tl3 19:45 BP 118 / 78; Pulse 73; Resp 18; Pulse Ox 96% ; tl3 20:09 BP 119 / 72; Pulse 71; Resp 18; Pulse Ox 96% ; tl3 16:49 Body Mass Index 15.30 (40.42 kg, 162.56 cm) MDM: 16:59 Patient medically screened. jr8 18:56 Data reviewed: vital signs, nurses notes, lab test result(s), EKG, radiologic studies, [facility] CT scan, plain films, and as a result, I will admit patient. Data interpreted: Pulse oximetry: on room air is 94 %. Interpretation: acceptable. Counseling: I had a detailed discussion with the patient and/or guardian regarding: the historical points, exam findings, and any diagnostic results supporting the discharge/admit diagnosis, lab results, radiology results, the need for further work-up and treatment in the hospital. Physician consultation: Zacarias Isbell MD was called at 18:57, was contacted at 18:57, regarding admission, to the telemetry unit. consult, patient's condition, and will see patient. 08/06 17:04 Order name: Basic Metabolic Panel; Complete Time: 18:26 jr8 08/06 17:04 Order name: CBC with Diff; Complete Time: 17:53 jr8 08/06 17:04 Order name: LFT's; Complete Time: 18:26 jr8 08/06 17:04 Order name: Magnesium; Complete Time: 18:26 jr8 08/06 17:04 Order name: NT PRO-BNP; Complete Time: 18:26 jr8 08/06 17:04 Order name: PT-INR; Complete Time: 17:53 jr8 08/06 17:04 Order name: Troponin (emerg Dept Use Only); Complete Time: 18:26 jr8 08/06 17:37 Order name: Blood Culture Adult (2) jr8 08/06 17:51 Order name: Glucose, Ancillary Testing; Complete Time: 17:53 EDMS 08/06 19:03 Order name: CBC with Automated Diff EDMS 08/06 19:03 Order name: CBC with Automated Diff EDMS 08/06 19:03 Order name: Comprehensive Metabolic Panel EDMS 08/06 19:03 Order name: Comprehensive Metabolic Panel EDMS 08/06 19:03 Order name: Lipid Profile EDMS 08/06 17:04 Order name: XRAY Chest (1 view); Complete Time: 18:26 jr8 08/06 17:04 Order name: EKG; Complete Time: 17:30 8 08/06 17:04 Order name: Cardiac monitoring; Complete Time: 18:38 jr8 08/06 17:04 Order name: EKG - Nurse/Tech; Complete Time: 18:38 jr8 08/06 17:04 Order name: IV Saline Lock; Complete Time: 18:10 8 08/06 17:04 Order name: Labs collected and sent; Complete Time: 18:10 8 08/06 17:04 Order name: O2 Per Protocol; Complete Time: 18:10 jr8 08/06 17:37 Order name: CT Chest Wo Con; Complete Time: 18:26 jr8 08/06 19:03 Order name: CONS Physician Consult EDMS 08/06 19:03 Order name: Lipid Profile EDMS 08/06 19:03 Order name: Magnesium EDMS 08/06 19:03 Order name: Magnesium EDMS 08/06 19:03 Order name: Phosphorus EDMS 08/06 19:03 Order name: Phosphorus EDMS 08/06 19:04 Order name: CONS Physician Consult EDMS 08/06 17:04 Order name: O2 Sat Monitoring; Complete Time: 18:10 jr8 Administered Medications: 18:15 Drug: LevaQUIN 500 mg Volume: 100 ml; Route: IVPB; Infused Over: 60 mins; Site: right tl3 forearm; Delivery: Primary tubing; 19:33 Follow up: IV Status: Completed infusion; IV Intake: 100ml tl3 Disposition: 08/07 15:59 Co-signature as Attending Physician, Roddy Caldwell MD Available for consultation at [facility] all times.. Disposition: 08/06/17 18:58 Hospitalization ordered by Zacarias Isbell for Inpatient Admission. Preliminary diagnosis are Pneumonia due to other specified bacteria, Pleural effusion in other conditions classified elsewhere. - Bed requested for Telemetry/MedSurg (Inpatient). - Status is Inpatient Admission. tl3 - Condition is Stable. - Problem is new. - Symptoms are unchanged. UTI on Admission? No Signatures: Dispatcher [employer] EDMS Liana Marie RN RN Glenn Briggs PA PA jr8 Paul Richards RN RN Roddy Caldwell MD MD [facility] Alida Mchugh RN RN tl3 Corrections: (The following items were deleted from the chart) 08/06 20:24 18:58 Hospitalization Ordered by Zacarias Isbell MD for Inpatient Admission. Preliminary fc diagnosis is Pneumonia due to other specified bacteria; Pleural effusion in other conditions classified elsewhere. Bed requested for Telemetry/MedSurg (Inpatient). Status is Inpatient Admission. Condition is Stable. Problem is new. Symptoms are unchanged. UTI on Admission? No. jr8 21:23 20:24 08/06/2017 18:58 Hospitalization Ordered by Zacarias Isbell MD for Inpatient tl3 Admission. Preliminary diagnosis is Pneumonia due to other specified bacteria; Pleural effusion in other conditions classified elsewhere. Bed requested for Telemetry/MedSurg (Inpatient). Status is Inpatient Admission. Condition is Stable. Problem is new. Symptoms are unchanged. UTI on Admission? No. fc
--- NOTE | 2017-08-06 18:59 | ER ---
Nurse's Notes [facility] Name: Vance Barrera Age: 42 yrs Sex: Male : 1975 Arrival Date: 08/06/2017 Time: 16:42 Bed 26 Private MD: Luisito Hicks Diagnosis: Pneumonia due to other specified bacteria;Pleural effusion in other conditions classified elsewhere Presentation: 08/06 16:44 Presenting complaint: sister, was previosuly here for fluids of his lungs, this AM, hj when home health nurse visited my brother, she told me, she couldn't hear any lung sounds on the R; reports O2 sat is 91%; denies fever and chills;. Transition of care: patient was not received from another setting of care. Onset of symptoms was August 06, 2017. Risk Assessment: Do you want to hurt yourself or someone else? Patient reports no desire to harm self or others. Initial Sepsis Screen: Does the patient meet any 2 criteria? No. Patient's initial sepsis screen is negative. Does the patient have a suspected source of infection? No. Patient's initial sepsis screen is negative. Care prior to arrival: None. 16:44 Method Of Arrival: Ambulatory 16:44 Acuity: DENY 3 hj Triage Assessment: 16:47 General: Appears in no apparent distress. uncomfortable, slender, Behavior is calm, hj cooperative, appropriate for age. Pain: Complains of pain in low back area and right low back. Respiratory: Reports Onset: The symptoms/episode began/occurred Historical: - Allergies: 16:47 No Known Allergies; - Home Meds: 19:38 DIALYVITE 800 0.8 mg oral tab [Active]; pravastatin 40 mg oral tab 1 tab once daily tl3 [Active]; sertraline 50 mg oral tab 1 tab once daily [Active]; calcium acetate 667 mg oral cap 2 caps 3 times per day [Active]; mirtazapine 7.5 mg Oral tab 1 tabs once daily [Active]; glipizide 5 mg Oral tr24 1 tab once daily [Active]; amlodipine 10 mg tab 1 tab once daily [Active]; doxazosin 2 mg oral tab 1 tab twice daily [Active]; tramadol 50 mg Oral tab 1 tab three times a day for Pain [Active]; carvedilol 6.25 mg oral tab 1 tab 2 times per day [Active]; - PMHx: 16:47 Diabetes - IDDM; hj 19:40 Pleural Effusions; ESRD; Pneumonia; tl3 - PSHx: 16:47 None; hj - Immunization history:: Adult Immunizations up to date. - Social history:: Smoking status: Patient/guardian denies using tobacco, Patient/guardian denies using alcohol. - Ebola Screening: : Patient negative for fever greater than or equal to 101.5 degrees Fahrenheit, and additional compatible Ebola Virus Disease symptoms Patient denies exposure to infectious person Patient denies travel to an Ebola-affected area in the 21 days before illness onset. Screenin:48 Abuse screen: Denies threats or abuse. Denies injuries from another. Nutritional hj screening: No deficits noted. Tuberculosis screening: Fall Risk None identified. Assessment: 16:48 Respiratory: Airway Respiratory effort is even, unlabored, Respiratory pattern is hj regular, symmetrical, 16:48 Cardiovascular: Rhythm is. hj 17:06 General: Appears uncomfortable, slender, emaciated, Behavior is calm, cooperative, tl3 appropriate for age. Pain: Denies pain. Neuro: Level of Consciousness is awake, alert, obeys commands, Oriented to person, place, time, situation, Appropriate for age. Cardiovascular: Heart tones S1 S2 present Patient's skin is warm and dry. Respiratory: Airway is patent Respiratory effort is even, labored, Respiratory pattern is regular, symmetrical, Breath sounds are absent in left upper lobe, left lower lobe, left posterior upper lobe and left posterior lower lobe. GI: No signs and/or symptoms were reported involving the gastrointestinal system. GI: No signs and/or symptoms were reported involving the gastrointestinal system. Parent/caregiver reports the patient having anorexia, weight loss of more than 10 pounds in the last two weeks. : No signs and/or symptoms were reported regarding the genitourinary system. EENT: No signs and/or symptoms were reported regarding the EENT system. Derm: No signs and/or symptoms reported regarding the dermatologic system. Musculoskeletal: No signs and/or symptoms reported regarding the musculoskeletal system. 18:15 Reassessment: Patient appears in no apparent distress at this time. No changes from tl3 previously documented assessment. Patient and/or family updated on plan of care and expected duration. Pain level reassessed. Patient is alert, oriented x 3, equal unlabored respirations, skin warm/dry/pink. 19:30 Reassessment: Patient appears in no apparent distress at this time. No changes from tl3 previously documented assessment. Patient and/or family updated on plan of care and expected duration. Pain level reassessed. Patient is alert, oriented x 3, equal unlabored respirations, skin warm/dry/pink. pt resting quietly. 20:09 Reassessment: Patient appears in no apparent distress at this time. No changes from tl3 previously documented assessment. Patient and/or family updated on plan of care and expected duration. Pain level reassessed. Patient is alert, oriented x 3, equal unlabored respirations, skin warm/dry/pink. pt sleeping. Vital Signs: 16:49 BP 114 / 68; Pulse 83; Resp 20; Temp 99.2(O); Pulse Ox 95% on R/A; Weight 40.42 kg; hj Height 5 ft. 4 in. (162.56 cm); Pain 0/10; 17:00 BP 108 / 70; Pulse 58; Resp 18; Pulse Ox 97% on R/A; tl3 18:15 BP 105 / 70; Pulse 58; Resp 18; Pulse Ox 97% on R/A; tl3 19:45 BP 118 / 78; Pulse 73; Resp 18; Pulse Ox 96% ; tl3 20:09 BP 119 / 72; Pulse 71; Resp 18; Pulse Ox 96% ; tl3 16:49 Body Mass Index 15.30 (40.42 kg, 162.56 cm) hj ED Course: 16:42 Patient arrived in ED. mr 16:42 Luisito Hicks MD is Private Physician. mr 16:46 Triage completed. hj 16:48 Arm band placed on right wrist. hj 16:48 Patient has correct armband on for positive identification. Placed in gown. Bed in low hj position. Call light in reach. Adult w/ patient. 16:53 Coby Champagne, PERLA is Primary Nurse. aj 16:59 Glenn Briggs PA is PHCP. jr8 16:59 Roddy Caldwell MD is Attending Physician. jr8 17:33 X-ray completed. Portable x-ray completed in exam room. Patient tolerated procedure kp1 well. 17:35 XRAY Chest (1 view) In Process Unspecified. EDMS 17:[address] vm2 17:54 EKG done, by sleep tech. reviewed by Glenn HANSON. 3 17:57 CT completed. Patient tolerated procedure well. Patient moved back from CT. vm2 17:58 CT Chest Wo Con In Process Unspecified. EDMS 18:57 Zacarias Isbell MD is Hospitalizing Provider. jr8 Administered Medications: 18:15 Drug: LevaQUIN 500 mg Volume: 100 ml; Route: IVPB; Infused Over: 60 mins; Site: right tl3 forearm; Delivery: Primary tubing; 19:33 Follow up: IV Status: Completed infusion; IV Intake: 100ml tl3 Intake: 19:33 IV: 100ml; Total: 100ml. tl3 Outcome: 18:58 Decision to Hospitalize by Provider. jr8 21:23 Patient left the ED. tl3 Signatures: Dispatcher [employer] EDCoby Cerda, Annette Carlson RN mr Glenn Briggs PA PA 8 Paul Richards RN Genie Banks 2 Amberly Salas 1 Alida Mchugh RN RN 3 Elsie Schuster 3 Corrections: (The following items were deleted from the chart) 16:51 16:49 Pulse 83bpm; Resp 20bpm; Pulse Ox 95% RA; Temp 99.2F Oral; 40.42 kg; Height 5 ft. hj 4 in.; BMI: 15.2; Pain 0/10; hj
[2017-08-06] MEDS: NPH (HUMAN) 100 UNITS/ML INSULIN SQ SCH (21:00)
[2017-08-06] MEDS: IPRATROPIUM BROM 0.5MG/2.5ML NEB SCH (21:53)
[2017-08-06] MEDS: ALBUTEROL 2.5 MG/3 ML NEB SOL NEB SCH (21:53)
--- NOTE | 2017-08-06 22:11 | EKG ---
Test Date: 2017-08-06 Test Time: 17:44:38 Mixed Livestock Farmer: IKE MEASUREMENT RESULTS: Intervals: Rate: 78 PA: 172 QRSD: 84 QT: 366 QTc: 417 Braymer: P: 64 PA: 172 QRS: 63 T: 239 INTERPRETIVE STATEMENTS: Normal sinus rhythm Possible Left atrial enlargement T wave abnormality, consider inferior ischemia T wave abnormality, consider anterolateral ischemia Abnormal ECG Compared to ECG 06/25/2017 01:59:10 No significant changes Electronically Signed On 08-06-17 22:10:23 CDT by Jean Pierre Joy
[2017-08-06] MEDS: CARVEDILOL 6.25 MG TAB PO SCH (22:43)
[2017-08-06] MEDS: DOXAZOSIN 2 MG TAB PO SCH (22:43)
[2017-08-06] MEDS ORDERED: D50W 25 GM/50 ML SYRINGE IV ONE (23:17)
[2017-08-07] MEDS: IPRATROPIUM BROM 0.5MG/2.5ML NEB SCH ×4 (02:00→20:45)
[2017-08-07] MEDS: ALBUTEROL 2.5 MG/3 ML NEB SOL NEB SCH ×4 (02:00→20:45)
[2017-08-07 05:06] LABS: Absolute Lymphocytes (CBC) 0.9 K/uL (0.7-4.9); Absolute Monocytes 1.1 K/uL (0.1-1.3); Absolute Neutrophil 9.5 K/uL (1.8-8.0); Basophils % 0.6 % (0-1.3); Eosinophils % 1.9 % (0-4.4); Hematocrit 24.5 % (39.6-49.0); Lymphocytes % 7.6 % (15.3-44.8); MCH 26.5 pg (27.0-35.0); MCV 87.5 fL (80-100)
[2017-08-07 06:22] LABS: Albumin 1.6 g/dL (3.4-5.0); Bilirubin Total 0.3 mg/dL (0.2-1.0); Magnesium 2.1 mg/dL (1.8-2.4); Potassium 3.9 mmol/L (3.5-5.1); Protein, Total 5.5 g/dL (6.4-8.2)
--- NOTE | 2017-08-07 07:23 | P.HP ---
Certification for Inpatient Patient admitted to: Inpatient With expected LOS: >2 Midnights Patient will require the following post-hospital care: None Practitioner: I am a practitioner with admitting privileges, knowledge of patient current condition, hospital course, and medical plan of care. Services: Services provided to patient in accordance with Admission requirements found in Title 42 Section 412.3 of the Code of Federal Regulations Patient History Date of Service: 08/06/17 Reason for admission: Pneumonia/pleural effusion-recurrent/hypoalbuminemia/ anemia/leukocytosis History of Present Illness: Patient is a 42-year-old gentleman (who is Ethiopian speaking) who has had recurrent pleural effusion along with end-stage renal disease. Patient has also been malnourished with a BMI of 15 with severe hypoalbuminemia. Patient had a large quantity of fluid drained from his left lung a month and a half ago. Pathology did not reveal any significant abnormality. Patient's pleural effusion has recurred. Patient is also been having fever, coughing, and congestion. Patient came into the emergency room for further evaluation. Patient was found to have anemia and leukocytosis as well as the pleural effusion. Patient will be admitted for further evaluation. Allergies No Known Allergies Allergy (Unverified 06/25/17 08:25) Home Medications: Amlodipine [Norvasc*] 10 mg PO TID 01/13/16 Atorvastatin Calcium 40 mg PO DAILY 01/13/16 Insulin NPH Human [Novolin N (Humulin N)*] 10 units SQ SEECOM 01/13/16 Carvedilol [Coreg*] 6.25 mg PO BID #60 tab 05/16/16 Doxazosin [Cardura*] 1 mg PO BID #60 tab 05/16/16 Insulin NPH Human [Novolin N (Humulin N)*] 7 units SQ BEDTIME ml 05/16/16 Sevelamer Carbonate [Renvela*] 1,600 mg PO TIDWM tablet 05/16/16 Calcium Acetate 2 cap PO TID 08/07/17 Mirtazapine 1 tab PO DAILY 08/07/17 Sertraline HCl 1 tab PO DAILY 08/07/17 Tramadol HCl [Ultram] 50 mg PO TID 08/07/17 - Past Medical/Surgical History Diabetic: Yes -: IDDM -: ESRD on HD -: HTN -: HD fistula - Social History Alcohol use: No CD- Drugs: No Caffeine use: Yes Physical Examination - Vital Signs Temperature: 97.9 F Blood Pressure: 135/75 Pulse: 74 Respirations: 18 Pulse Ox (%): 92 - Studies Laboratory Data (last 24 hrs) 08/06/17 17:15: PT 14.1 H, INR 1.19 08/06/17 17:15: WBC 13.6 H, Hgb 8.6 L, Hct 28.5 L, Plt Count 391 08/06/17 17:15: Sodium 137, Potassium 3.7, BUN 40 H, Creatinine 4.80 H, Glucose 118 H, Magnesium 2.3, Total Bilirubin 0.4, AST 18, ALT 63, Alkaline Phosphatase 182 H Assessment & Plan - Advance Directives Does patient have a Living Will: No Does patient have a Durable POA for Healthcare: No
[2017-08-07] MEDS: NPH (HUMAN) 100 UNITS/ML INSULIN SQ SCH ×3 (09:16→21:00)
[2017-08-07] MEDS: PIPER/TAZO/NS 2.25gm 2.25 GM/50 ML BAG IVPB SCH ×2 (09:17→16:43)
[2017-08-07] MEDS: ATORVASTATIN 40 MG TAB PO SCH (09:17)
[2017-08-07] MEDS: DOXAZOSIN 2 MG TAB PO SCH (09:17)
[2017-08-07] MEDS: CARVEDILOL 6.25 MG TAB PO SCH (09:18)
[2017-08-07] MEDS: AMLODIPINE 10 MG TAB PO SCH (09:18)
[2017-08-07] MEDS: SEVELAMER CARBONATE 800 MG TABLET PO SCH ×3 (09:18→16:53)
[2017-08-07] MEDS ORDERED: TRAMADOL HCL 50 MG TAB PO PRN (14:00)
[2017-08-07] MEDS ORDERED: TRAMADOL HCL 50 MG TAB PO SCH (14:00)
--- NOTE | 2017-08-07 17:22 | PN ---
Date of Progress Note: 08/07/2017 Subjective: The patient seen and examined. Chart reviewed and case discussed with RN. The patient does report some difficulty breathing. Otherwise, no other complaints. No chest pain. Review of Systems: Negative except as above. Medications: Reviewed. Physical Examination: Vital Signs: Temperature 98.8, heart rate 82, blood pressure 132/78, respirations 18, O2 94% on 2 L via nasal cannula. GENERAL: Awake, alert, oriented, no acute distress, cachectic, ill-appearing male. CVS: S1, S2. No murmurs. Regular rate and rhythm. Peripheral pulses present. Respiratory: Diminished breath sounds. Some crackles. No wheezing or stridor. No use of accessory muscles Gastrointestinal: Abdomen is soft, nontender, nondistended. Positive bowel sounds. Extremities: No clubbing, cyanosis, or edema. Neurologic: Nonfocal. Laboratory Data: Sodium 134, potassium 3.9, chloride 99, CO2 26, BUN 42, creatinine 5.2, glucose 190 , calcium 8.1, phosphorus 3, magnesium 2.1, albumin 1.6. WBC 11.7, H and H 7.4 and 24.5, platelets 3 18, neutrophils 80.9%. Assessment And Plan: A 42-year-old male with: 1.Shortness of breath. 2.End-stage renal disease, on hemodialysis. We will continue hemodialysis as scheduled. Dr. Christel fonseca was on the case. 3.Pleural effusion, recurrent. The patient had recent thoracentesis with no significant abnormaliti es on pathology. 4.Severe protein-calorie malnutrition. Albumin 1.6. We will provide supplements, have Nutrition co nsulted. 5.Anemia of chronic disease, acute on chronic secondary to chronic kidney disease, end-stage renal d isease. The patient was transfused. Hemoglobin 7.5. We will continue to monitor H and H, transfuse as needed. 6.Pneumonia, left lower lobe consolidation, likely bacterial. The patient had risk for MRSA gram-ne gative bacteria due to end-stage renal disease, being on hemodialysis. The patient also has severe m alnutrition and hypoalbuminemia. We will continue with IV antibiotics and follow up on cultures. 7.Small left pleural effusion. 8.Gastrointestinal and deep venous thrombosis prophylaxis addressed. /LON Voice ID: [id number] Report ID: [id number]
[2017-08-07] MEDS ORDERED: NA CHLORIDE 0.9% 250 ML ONE (19:44)
[2017-08-07] MEDS ORDERED: LIDOCAINE 1% MPF 5 ML VIAL IM ONE (20:00)
[2017-08-07] MEDS ORDERED: LIDOCAINE 1% 20 ML MDV ONE (20:18)
--- NOTE | 2017-08-08 00:30 | CON ---
Date of Consultation: 08/07/2017 Chief Complaint: End-stage renal disease, on dialysis. History Of Present Illness: The patient presented to the hospital because of shortness of breath, generalized weakness, failure to thrive. He has a history of end-stage renal disease, has been dialyzed 3 times per week. He has severe malnutrition, failure to thrive, BMI is 15. The patient has severe hypoalbuminemia. The patient was found to have pleural effusion, had thoracentesis done previously. He presented to the hospital because of fever, cough, and congestion. Review of Systems: The patient is somewhat lethargic, cannot provide review of systems. Past Medical History: Insulin-dependent diabetes mellitus, anemia, CKD, renal osteodystrophy, end-stage renal disease, hypoalbuminemia, pleural effusion, pneumonia, congestive heart failure with diastolic dysfunction, status post AV fistula creation. Social History: Denies tobacco, alcohol, or illicit drugs. Family History: No kidney disease in the family. Physical Examination: Vital Signs: Blood pressure 135/75, heart rate 74, respiratory rate 18, SpO2 92 %. Eyes: Anicteric sclerae. EOMI. Ear, Nose, Mouth and Throat: Oral mucosa moist. No pallor. Neck: Supple. No JVD. No bruits. Lungs: Diminished breath sounds at bases. Crackles bilaterally present at bases. Few rhonchi. Heart: S1, S2. No pericardial friction rub. Abdomen: Soft, benign, nontender. No rebound, no guarding. Extremities: No edema, no clubbing, no cyanosis. Neurological: Moving extremities. Cranial nerves intact. Psychiatric: The patient is confused and lethargic. No tremor. Laboratory Data: PT 14.1, INR 1.19. WBC 13.6, hemoglobin 8.6, platelet count 391,000. Sodium 137, potassium 3.7, BUN 40, creatinine 4.8, glucose 118, magnesium 2.3, total bilirubin 0.4. Impression And Plan: 1. End-stage renal disease. Dialysis will be done with ultrafiltration , and plan is to adjust ultrafiltration goal to avoid intra-dialysis hypotension. The patient will have mild ultrafiltration less than 1 kilos as tolerated. 2. Hypertension. Hold blood pressure medication if systolic blood pressure is below 110. 3. Renal osteodystrophy. Monitor phosphorus level. Adjust binders. Continue renal diet. 4. Failure to thrive, increased p.o. protein intake. 5. Pneumonia with pleural effusion. The patient needs workup to rule out abscess and empyema. 6. Failure to thrive. I recommend GI workup to rule out malignancies. VIJAY/LON Voice ID: [id number] Report ID: [id number] MTDD
[2017-08-08] MEDS: DOXAZOSIN 2 MG TAB PO SCH ×3 (01:21→20:35)
[2017-08-08] MEDS: CARVEDILOL 6.25 MG TAB PO SCH ×3 (01:22→20:36)
[2017-08-08] MEDS: PIPER/TAZO/NS 2.25gm 2.25 GM/50 ML BAG IVPB SCH ×3 (01:25→18:36)
[2017-08-08] MEDS: NEPRO SHAKE 237 ML CAN PO SCH ×3 (01:31→20:37)
[2017-08-08] MEDS: ALBUTEROL 2.5 MG/3 ML NEB SOL NEB SCH ×4 (01:42→19:04)
[2017-08-08] MEDS: IPRATROPIUM BROM 0.5MG/2.5ML NEB SCH ×4 (01:43→19:04)
[2017-08-08 04:16] LABS: Absolute Lymphocytes (CBC) 0.7 K/uL (0.7-4.9); Absolute Monocytes 1.1 K/uL (0.1-1.3); Absolute Neutrophil 9.7 K/uL (1.8-8.0); Basophils % 0.3 % (0-1.3); Hematocrit 28.9 % (39.6-49.0); Lymphocytes % 5.8 % (15.3-44.8); MCH 27.4 pg (27.0-35.0); MCV 86.4 fL (80-100); MPV 8.6 fL (7.6-11.3); Monocytes % 9.5 % (3.3-12.3); RBC Red Blood Cell Count 3.34 M/uL (4.33-5.43)
[2017-08-08 05:03] LABS: Potassium 4.3 mmol/L (3.5-5.1)
[2017-08-08 05:04] LABS: Albumin 1.7 g/dL (3.4-5.0); Bilirubin Total 0.7 mg/dL (0.2-1.0); Protein, Total 6.1 g/dL (6.4-8.2)
[2017-08-08] MEDS: NPH (HUMAN) 100 UNITS/ML INSULIN SQ SCH ×2 (08:00→21:00)
--- NOTE | 2017-08-08 08:47 | RAD REPORT ---
EXAM DESCRIPTION: RAD - Chest Pa And Lat (2 Views) - 08/08/2017 7:56 am CLINICAL HISTORY: Pleural effusion, left-sided pneumonia COMPARISON: CT chest August 06, portable chest August 06 TECHNIQUE: PA and lateral views of the chest were obtained. FINDINGS: The lungs are fibrotic as a baseline. Moderate right pleural effusion with atelectasis sim ilar to August 06 imaging. The circumferential pleural fluid/ thickening on the left from apex to base has not changed. Lung base opacification with air bronchogram formation has not changed. Left upper lobe airspace cavity with air-fluid level is now identified, better image than seen on prior study. This appears to be a fixed cystic cavity rather than a simple hydropneumothorax. No pneumomediastinum . Trachea remains midline. Heart size is normal range. Upper lobe vasculature within normal limits. IMPRESSION: Cystic cavity with air-fluid level in the anterior left upper lung field is noted simila r to the August 06 CT study. An infection related cystic cavity is favored. Malignant cavity is not e xcluded. This is not felt to be a simple hydropneumothorax. Circumferential pleural fluid and thickening in the left hemithorax has not changed from comparison. Left base opacification remains. Moderate right pleural effusion with right lower lobe atelectasis has not changed.
[2017-08-08] MEDS ORDERED: glipiZIDE 5 MG TAB PO SCH (09:00)
[2017-08-08] MEDS: SEVELAMER CARBONATE 800 MG TABLET PO SCH ×3 (09:37→18:35)
[2017-08-08] MEDS: ATORVASTATIN 40 MG TAB PO SCH (09:39)
[2017-08-08] MEDS: SERTRALINE HCL 50 MG TAB PO SCH (09:39)
[2017-08-08] MEDS: AMLODIPINE 10 MG TAB PO SCH (09:39)
[2017-08-08] MEDS: MIRTAZAPINE 15 MG TAB PO SCH (09:43)
--- NOTE | 2017-08-08 13:45 | P.PN ---
Subjective Date of Service: 08/08/17 Primary Care Provider: Dr. Beach Chief Complaint: Pneumonia/pleural effusion-recurrent/hypoalbuminemia/anemia/ leukocytosis Subjective: Other (Patient doing better today.) Physical Examination - Vital Signs Temperature: 98.2 F Blood Pressure: 145/78 Pulse: 90 Respirations: 18 Pulse Ox (%): 100 - Physical Exam General: Alert, In no apparent distress, Cooperative, Cachectic HEENT: Atraumatic Neck: Supple Respiratory: Crackles/rales (Bilateral), Expiratory wheezes (Bilateral) Cardiovascular: Normal pulses, Regular rate/rhythm Gastrointestinal: Normal bowel sounds, Soft and benign, Non-distended, No tenderness, No masses, No rebound, No guarding Integumentary: No tenderness/swelling, No erythema, No warmth, No cyanosis Neurological: Normal speech, Normal strength at 5/5 x4 extr, Normal tone, Abnormal affect (Flat affect) - Studies Medications List Reviewed: Yes Assessment & Plan - Problems (Diagnosis) (1) Diabetes mellitus Current Visit: Yes Status: Chronic Plan: Will continue sliding scale. Will encourage oral intake. Will adjust NPH. Qualifiers: Diabetes mellitus type: type 2 Diabetes mellitus terminal operations manager insulin use: with longterm use Diabetes mellitus complication status: with other specified complication Qualified Code(s): E11.69 - Type 2 diabetes mellitus with other specified complication; Z79.4 - terminal operations manager (current) use of insulin (2) Pneumonia Onset Date: 08/07/17 Current Visit: Yes Status: Acute Plan: CT scan shows cystic cavity with air-fluid level in the anterior left upper lung field similar to August 06 CT scan. Patient with moderate right pleural effusion with right lower lobe atelectasis. Pneumonia suspected. Will continue with antibiotic therapy. Patient was hospitalized in June and transferred for VATS procedure. Spoke with pulmonology. Pulmonology reviewed records. No infection was noted at that time. Will wean off oxygen. Will monitor closely. Qualifiers: Pneumonia type: due to unspecified organism Laterality: right Lung location: lower lobe of lung Qualified Code(s): J18.1 - Lobar pneumonia, unspecified organism (3) Anemia Current Visit: No Status: Chronic Plan: Patient with anemia. Patient received transfusion on dialysis. Qualifiers: Anemia type: due to chronic kidney disease Chronic kidney disease stage: on chronic dialysis Qualified Code(s): N18.6 - End stage renal disease; D63.1 - Anemia in chronic kidney disease; Z99.2 - Dependence on renal dialysis (4) End stage renal disease Onset Date: 05/12/16 Current Visit: No Status: Chronic Plan: Patient received dialysis yesterday. Will continue to monitor closely. (5) HTN (hypertension) Onset Date: 06/25/17 Current Visit: No Status: Chronic Plan: Will continue his medications. Qualifiers: Hypertension type: essential hypertension Qualified Code(s): I10 - Essential (primary) hypertension (6) Pleural effusion Onset Date: 06/25/17 Current Visit: No Status: Acute Plan: Large right pleural effusion noted. Will discuss with pulmonology further. (7) Hyperlipidemia Current Visit: Yes Status: Chronic Plan: Continue medication. Qualifiers: Hyperlipidemia type: unspecified Qualified Code(s): E78.5 - Hyperlipidemia , unspecified (8) Depression Current Visit: Yes Status: Chronic Plan: Continue medication. Qualifiers: Depression Type: unspecified Qualified Code(s): F32.9 - Major depressive disorder, single episode, unspecified (9) Abnormal CT scan Current Visit: Yes Status: Chronic Plan: Patient was transferred to higher level center to address pleural effusion. Patient had VATS procedure in June. Repeat chest x-ray shows cystic cavity with air-fluid level in the anterior left upper lung field. Infection is likely. Cavity does not appear malignant. Discharge Plan: Home Plan to discharge in: Greater than 2 days Time Spent Managing Pts Care (In Minutes): 55
[2017-08-08] MEDS: ENOXAPARIN 30 MG/0.3 ML SQ SCH (18:35)
--- NOTE | 2017-08-08 22:50 | PN ---
Date of Progress Note: 08/08/2017 Reason For Visit: End-stage renal disease, on dialysis. History Of Present Illness: The patient presented to the hospital because of severe weakness, shortn ess of breath. He was found to have pneumonia. He was started on broad-spectrum antibiotics. He kuo s history of malnutrition. He was started on high protein intake. He has history of diabetes [facility], insulin dependent. Review of Systems: Denies new complaints. Physical Examination: Lungs: Crackles bilaterally, few rhonchi. Heart: S1, S2. Abdomen: Soft, benign. Extremities: No edema. Impression And Plan: 1.Diabetes mellitus, continue insulin. 2.Pneumonia, on antibiotics, pending workup to rule out empyema. 3.Anemia due to chronic kidney disease. Monitor hemoglobin level, adjust RADHIKA. 4.Renal osteodystrophy. Monitor phosphorus level. 5.Hypertension. Continue current medication. VIJAY/LON Voice ID: [id number] Report ID: [id number]
[2017-08-09] MEDS: ALBUTEROL 2.5 MG/3 ML NEB SOL NEB SCH ×4 (01:26→20:34)
[2017-08-09] MEDS: IPRATROPIUM BROM 0.5MG/2.5ML NEB SCH ×4 (01:26→20:34)
[2017-08-09] MEDS: PIPER/TAZO/NS 2.25gm 2.25 GM/50 ML BAG IVPB SCH ×3 (01:36→17:28)
[2017-08-09] MEDS ORDERED: TEMAZEPAM 15 MG CAP PO PRN (02:11)
[2017-08-09 05:02] LABS: Absolute Lymphocytes (CBC) 0.8 K/uL (0.7-4.9); Absolute Monocytes 0.9 K/uL (0.1-1.3); Absolute Neutrophil 10.1 K/uL (1.8-8.0); Eosinophils % 1.4 % (0-4.4); Hematocrit 30.4 % (39.6-49.0); MCH 27.4 pg (27.0-35.0); MCV 87.2 fL (80-100); MPV 8.6 fL (7.6-11.3); Monocytes % 7.4 % (3.3-12.3); RBC Red Blood Cell Count 3.49 M/uL (4.33-5.43)
[2017-08-09 05:20] LABS: Albumin 1.6 g/dL (3.4-5.0); Bilirubin Total 0.3 mg/dL (0.2-1.0); Magnesium 2.3 mg/dL (1.8-2.4)
[2017-08-09] MEDS: MIRTAZAPINE 15 MG TAB PO SCH (08:17)
[2017-08-09] MEDS: NPH (HUMAN) 100 UNITS/ML INSULIN SQ SCH ×2 (08:18→21:00)
[2017-08-09] MEDS: ATORVASTATIN 40 MG TAB PO SCH (08:19)
[2017-08-09] MEDS: DOXAZOSIN 2 MG TAB PO SCH ×3 (08:21→21:09)
[2017-08-09] MEDS: SEVELAMER CARBONATE 800 MG TABLET PO SCH ×3 (08:23→17:27)
[2017-08-09] MEDS: AMLODIPINE 10 MG TAB PO SCH ×2 (08:24→17:26)
[2017-08-09] MEDS: SERTRALINE HCL 50 MG TAB PO SCH (08:28)
[2017-08-09] MEDS: NEPRO SHAKE 237 ML CAN PO SCH ×2 (08:29→21:10)
[2017-08-09] MEDS ORDERED: ZOLPIDEM TARTRATE 5 MG TABLET PO PRN (08:37)
[2017-08-09] MEDS: CARVEDILOL 6.25 MG TAB PO SCH ×3 (08:43→21:09)
--- NOTE | 2017-08-09 08:47 | P.PN ---
Subjective Date of Service: 08/09/17 Primary Care Provider: Dr. Beach Chief Complaint: Pneumonia/pleural effusion-recurrent/hypoalbuminemia/anemia/ leukocytosis Subjective: Improving (Patient feeling slightly better. Still weak. Mother at bedside.) Physical Examination - Vital Signs Temperature: 97.8 F Blood Pressure: 147/88 Pulse: 92 Respirations: 18 Pulse Ox (%): 98 - Physical Exam General: Alert, In no apparent distress, Oriented x3, Cooperative, Cachectic HEENT: Atraumatic Neck: Supple Respiratory: Other (Better air movement bilateral, some crackles to the bases) Cardiovascular: Normal pulses, Regular rate/rhythm Gastrointestinal: Normal bowel sounds, Soft and benign, Non-distended, No tenderness, No masses, No rebound, No guarding Musculoskeletal: No erythema, No tenderness, No warmth Integumentary: No erythema, No warmth, No cyanosis Neurological: Normal speech, Normal strength at 5/5 x4 extr, Normal tone, Normal affect - Studies Medications List Reviewed: Yes Assessment & Plan - Problems (Diagnosis) (1) Diabetes mellitus Current Visit: Yes Status: Chronic Plan: Encourage oral intake. Adjusted NPH insulin to twice daily instead of 3 times a day. Will continue sliding scale. 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 Patient with moderate right pleural effusion with right lower lobe atelectasis. Pneumonia suspected. Patient with trapped lung on left side. Case discussed with pulmonology. Previous records reviewed with pulmonology. Pulmonology reports that the patient was hospitalized in transferred to [facility]. He had a VATS procedure at that time. Continue to wean off oxygen. Patient may require oxygen at discharge. No infection at this time. Blood culture 1/2 positive for Gram negative rods. Will continue with IV antibiotic therapy. Await blood culture results. Patient will likely need antibiotic therapy for 2 weeks. Qualifiers: Pneumonia type: due to unspecified organism Laterality: right Lung location: lower lobe of lung Qualified Code(s): J18.1 - Lobar pneumonia, unspecified organism (3) Anemia Current Visit: No Status: Chronic Plan: Patient with anemia. Patient received transfusion on dialysis. Hemoglobin stable after transfusion. Qualifiers: Anemia type: due to chronic kidney disease Chronic kidney disease stage: on chronic dialysis Qualified Code(s): N18.6 - End stage renal disease; D63.1 - Anemia in chronic kidney disease; Z99.2 - Dependence on renal dialysis (4) End stage renal disease Onset Date: 05/12/16 Current Visit: No Status: Chronic Plan: Patient will continue with dialysis. Nephrology consulted. (5) HTN (hypertension) Onset Date: 06/25/17 Current Visit: No Status: Chronic Plan: Continues medication. Will monitor and adjust appropriately. Qualifiers: Hypertension type: essential hypertension Qualified Code(s): I10 - Essential (primary) hypertension (6) Pleural effusion Onset Date: 06/25/17 Current Visit: No Status: Acute Plan: Large right pleural effusion noted. No intervention needed as per pulmonology. Will monitor closely. (7) Hyperlipidemia Current Visit: Yes Status: Chronic Plan: Continue medication. Qualifiers: Hyperlipidemia type: unspecified Qualified Code(s): E78.5 - Hyperlipidemia , unspecified (8) Depression Current Visit: Yes Status: Chronic Plan: Continue medication. Qualifiers: Depression Type: unspecified Qualified Code(s): F32.9 - Major depressive disorder, single episode, unspecified (9) Abnormal CT scan Current Visit: Yes Status: Chronic Plan: Patient was transferred to higher level center to address pleural effusion on previous hospitalization. Patient had VATS procedure in June. Repeat chest x- ray shows cystic cavity with air-fluid level in the anterior left upper lung field. Trapped lung likely. Pulmonology doubts an infection process. Will continue with IV antibiotic therapy due to blood culture. Patient may require home oxygen. Patient desires to go home with home health and physical therapy. Discharge likely in 1-3 days. (10) Bacteremia Current Visit: Yes Status: Acute Plan: Gram negative raman positive from 1/2 blood cultures. Will continue Zosyn. Await culture results. 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 Will wean off oxygen. Case discussed with pulmonology. Discharge Plan: Home Plan to discharge in: 48 Hours Time Spent Managing Pts Care (In Minutes): 55
[2017-08-09] MEDS: ENOXAPARIN 30 MG/0.3 ML SQ SCH (17:28)
--- NOTE | 2017-08-09 23:18 | PN ---
Date of Progress Note: 08/09/2017 Chief Complaint: End-stage renal disease, on dialysis. History Of Present Illness: The patient presented to the hospital because of severe weakness, shortn ess of breath, malnutrition, failure to thrive. He was found to have pneumonia and he was started on antibiotics of broad spectrum. The patient has history of diabetes mellitus, he is insulin dependen t. Review of Systems: Denies new complaints. Physical Examination: Lungs: Crackles bilaterally, few rhonchi. Heart: S1, S2. No pericardial friction rub. Abdomen: Soft, benign. Extremities: No edema. Impression And Plan: 1.Diabetes mellitus. Continue insulin. 2.Pneumonia. Continue antibiotics. Workup pending to rule out empyema. 3.Anemia due to chronic kidney disease. Monitor hemoglobin level. Adjust RADHIKA. 4.Renal osteodystrophy. Monitor phosphorus level. Adjust binders as needed. 5.Hypertension. Continue current medication. 6.Hypoalbuminemia, malnutrition. Continue high protein intake. VIJAY/MODL Voice ID: [id number] Report ID: [id number]
[2017-08-10] MEDS: PIPER/TAZO/NS 2.25gm 2.25 GM/50 ML BAG IVPB SCH ×3 (01:00→17:00)
[2017-08-10] MEDS: ALBUTEROL 2.5 MG/3 ML NEB SOL NEB SCH ×2 (01:53→08:00)
[2017-08-10] MEDS: IPRATROPIUM BROM 0.5MG/2.5ML NEB SCH ×3 (01:53→14:00)
[2017-08-10] MEDS ORDERED: PIPERACIL/TAZO 2.25 GM VIAL IV ONE (03:06)
[2017-08-10] MEDS ORDERED: NA CHLORIDE 0.9% 50 ML ONE (03:11)
[2017-08-10 03:31] LABS: HBsAG Nonreactive (Nonreactive)
[2017-08-10 03:57] VITALS: BMI 14.4
[2017-08-10 05:28] LABS: Absolute Monocytes 1.2 K/uL (0.1-1.3); Basophils % 0.8 % (0-1.3); Eosinophils % 1.1 % (0-4.4); Hematocrit 31.1 % (39.6-49.0); Lymphocytes % 6.9 % (15.3-44.8); MCH 28.6 pg (27.0-35.0); MCV 86.4 fL (80-100); MPV 8.6 fL (7.6-11.3); Monocytes % 8.1 % (3.3-12.3); RBC Red Blood Cell Count 3.59 M/uL (4.33-5.43)
[2017-08-10 05:39] LABS: Magnesium 2.1 mg/dL (1.8-2.4); Potassium 3.7 mmol/L (3.5-5.1)
--- NOTE | 2017-08-10 08:34 | P.DS ---
Admission Date: 08/06/17 Discharge Date: 08/10/17 Primary Care Provider: Dr. Beach Disposition: TRANSFER TO INPATIENT REHAB Discharge Condition: GOOD Reason for Admission: Pneumonia/pleural effusion-recurrent/hypoalbuminemia/ anemia/leukocytosis Consultations: Pulmonary-Dr. Figueroa Nephrology-Dr. Menchaca Procedures: CT Scan: COMPARISON: June 2017 TECHNIQUE: Computed axial tomography of the chest was obtained. Contrast was not requested. All CT scans are performed using dose optimization technique as appropriate and may include automated exposure control or mA/KV adjustment according to patient size. FINDINGS: The evaluation of mediastinum, charito and vessels is limited secondary to lack of IV contrast administration. Moderate right and small left pleural effusions are present. Air is present within the left pleural space. Right lower lobe atelectasis is seen. Left lower lobe consolidation is seen. The heart is enlarged. A small pericardial effusion is present. Diffuse edema is present within the subcutaneous tissues. IMPRESSION: Moderate right and small left pleural effusions. Air within the left pleural space probably related to instrumentation. Infection can also have this appearance. Left lower lobe consolidation probably representing pneumonia - Problems (1) Diabetes mellitus Current Visit: Yes Status: Chronic Qualifiers: Diabetes mellitus type: type 2 Diabetes mellitus terminal operations manager insulin use: with terminal operations manager use Diabetes mellitus complication status: with other specified complication Qualified Code(s): E11.69 - Type 2 diabetes mellitus with other specified complication; Z79.4 - [facility] (current) use of insulin (2) Pneumonia Onset Date: 08/07/17 Current Visit: Yes Status: Acute Qualifiers: Pneumonia type: due to unspecified organism Laterality: left Lung location: lower lobe of lung Qualified Code(s): J18.1 - Lobar pneumonia, unspecified organism (3) Anemia Current Visit: No Status: Chronic Qualifiers: Anemia type: due to chronic kidney disease Chronic kidney disease stage: on chronic dialysis Qualified Code(s): N18.6 - End stage renal disease; D63.1 - Anemia in chronic kidney disease; Z99.2 - Dependence on renal dialysis (4) End stage renal disease Onset Date: 05/12/16 Current Visit: No Status: Chronic (5) HTN (hypertension) Onset Date: 06/25/17 Current Visit: No Status: Chronic Qualifiers: Hypertension type: essential hypertension Qualified Code(s): I10 - Essential (primary) hypertension (6) Pleural effusion Onset Date: 06/25/17 Current Visit: No Status: Acute (7) Hyperlipidemia Current Visit: Yes Status: Chronic Qualifiers: Hyperlipidemia type: unspecified Qualified Code(s): E78.5 - Hyperlipidemia , unspecified (8) Depression Current Visit: Yes Status: Chronic Qualifiers: Depression Type: unspecified Qualified Code(s): F32.9 - Major depressive disorder, single episode, unspecified (9) Abnormal CT scan Current Visit: Yes Status: Chronic (10) Bacteremia Current Visit: Yes Status: Acute (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 (12) Atelectasis of both lungs Current Visit: Yes Status: Chronic Vital Signs/Physical Exam: Temp Pulse Resp BP Pulse Ox 98.7 F 101 H 18 149/78 H 98 08/10/17 04:00 08/10/17 04:00 08/10/17 04:00 08/10/17 04:00 08/10/17 04:00 Laboratory Data at Discharge: WBC 14.4 K/uL (4.3-10.9) H D 08/10/17 04:27 Hgb 10.3 g/dL (13.6-17.9) L 08/10/17 04:27 Hct 31.1 % (39.6-49.0) L 08/10/17 04:27 Plt Count 413 K/uL (152-406) H 08/10/17 04:27 PT 14.1 SECONDS (9.5-12.5) H 08/06/17 17:15 INR 1.19 08/06/17 17:15 Sodium 141 mmol/L (136-145) 08/10/17 04:27 Potassium 3.7 mmol/L (3.5-5.1) 08/10/17 04:27 BUN 21 mg/dL (7-18) H 08/10/17 04:27 Creatinine 3.30 mg/dL (0.55-1.3) H D 08/10/17 04:27 Glucose 57 mg/dL (74-106) L 08/10/17 04:27 Phosphorus 3.0 mg/dL (2.5-4.9) 08/07/17 04:27 Magnesium 2.1 mg/dL (1.8-2.4) 08/10/17 04:27 Total Bilirubin 0.3 mg/dL (0.2-1.0) 08/09/17 04:48 AST 14 U/L (15-37) L 08/09/17 04:48 ALT 33 U/L (12-78) 08/09/17 04:48 Alkaline Phosphatase 145 U/L (45-117) H 08/09/17 04:48 Triglycerides 59 mg/dL (<150) 08/07/17 04:27 Cholesterol 73 mg/dL (<200) 08/07/17 04:27 HDL Cholesterol 30 mg/dL (40-60) L 08/07/17 04:27 Cholesterol/HDL Ratio 2.43 08/07/17 04:27 Home Medications: Amlodipine [Norvasc*] 10 mg PO TID 01/13/16 Atorvastatin Calcium 40 mg PO DAILY 01/13/16 Insulin NPH Human [Novolin N (Humulin N)*] 10 units SQ SEECOM 01/13/16 Carvedilol [Coreg*] 6.25 mg PO BID #60 tab 05/16/16 Calcium Acetate 2 cap PO TID 08/07/17 Doxazosin [Cardura] 2 mg PO BID 08/07/17 Glipizide [Glucotrol] 5 mg PO DAILY 08/07/17 Insulin NPH Human [Novolin N (Humulin N)*] 5 units SQ BEDTIME 08/07/17 Mirtazapine 1 tab PO DAILY 08/07/17 Sertraline HCl 1 tab PO DAILY 08/07/17 Tramadol HCl [Ultram] 50 mg PO TID PRN 08/07/17 Vit B Comp&C/Folic Acid/Vit D3 [Dialyvite 800 Plus D Wafer] 1 tab PO DAILY 08/07
[2017-08-10] MEDS: NPH (HUMAN) 100 UNITS/ML INSULIN SQ SCH (08:46)
[2017-08-10] MEDS: DOXAZOSIN 2 MG TAB PO SCH (08:47)
[2017-08-10] MEDS: CARVEDILOL 6.25 MG TAB PO SCH (08:47)
[2017-08-10] MEDS: SEVELAMER CARBONATE 800 MG TABLET PO SCH ×3 (08:47→17:08)
[2017-08-10] MEDS: ATORVASTATIN 40 MG TAB PO SCH (08:47)
[2017-08-10] MEDS: NEPRO SHAKE 237 ML CAN PO SCH (08:47)
[2017-08-10] MEDS: SERTRALINE HCL 50 MG TAB PO SCH (08:48)
[2017-08-10] MEDS: MIRTAZAPINE 15 MG TAB PO SCH (08:48)
[2017-08-10] MEDS: AMLODIPINE 10 MG TAB PO SCH (08:48)
--- NOTE | 2017-08-10 09:38 | P.PN ---
Subjective Date of Service: 08/10/17 Primary Care Provider: Dr. Beach Chief Complaint: Pneumonia/pleural effusion-recurrent/hypoalbuminemia/anemia/ leukocytosis Subjective: Improving Physical Examination - Vital Signs Temperature: 98.7 F Blood Pressure: 149/78 Pulse: 101 Respirations: 18 Pulse Ox (%): 98 - Physical Exam General: Alert, In no apparent distress, Oriented x3, Cooperative HEENT: Atraumatic Neck: Supple Respiratory: Other (Better air movement. Some crackles to the bases.) Cardiovascular: Normal pulses, Regular rate/rhythm Gastrointestinal: Normal bowel sounds, Soft and benign, Non-distended, No tenderness, No masses, No rebound, No guarding Musculoskeletal: No erythema, No tenderness, No warmth Integumentary: No tenderness/swelling, No erythema, No warmth, No cyanosis Neurological: Normal speech, Normal strength at 5/5 x4 extr, Normal tone, Normal affect Lymphatics: No axilla or inguinal lymphadenopathy - Studies Medications List Reviewed: Yes Assessment & Plan - Problems (Diagnosis) (1) Diabetes mellitus Current Visit: Yes Status: Chronic Plan: Encourage oral intake. NPH adjusted. Now all twice daily. Overall stable. Awaiting for the patient to be approved to go to inpatient rehab. Waiting on blood culture results. Qualifiers: Diabetes mellitus type: type 2 Diabetes mellitus intermediate insulin use: with intermediate use Diabetes mellitus complication status: with other specified complication Qualified Code(s): E11.69 - Type 2 diabetes mellitus with other specified complication; Z79.4 - [employer] (current) use of insulin (2) Pneumonia Onset Date: 08/07/17 Current Visit: Yes Status: Acute Plan: CT scan shows cystic cavity with air-fluid level in the anterior left upper lung field similar to August 06 CT scan. Patient with moderate right pleural effusion with right lower lobe atelectasis. Pneumonia suspected. Patient with trapped lung on left side. Case discussed with pulmonology. Previous records reviewed with pulmonology. Pulmonology reports that the patient was hospitalized in transferred to [facility]. He had a VATS procedure at that time. Continue to wean off oxygen. Awaiting transfer to inpatient rehab if accepted. Await blood culture results. Continue IV antibiotic therapy. Patient will need antibiotic therapy for 2 weeks. Qualifiers: Pneumonia type: due to unspecified organism Laterality: left Lung location: lower lobe of lung Qualified Code(s): J18.1 - Lobar pneumonia, unspecified organism (3) Anemia Current Visit: No Status: Chronic Plan: Patient with anemia. Patient received transfusion on dialysis. Hemoglobin stable after transfusion. Qualifiers: Anemia type: due to chronic kidney disease Chronic kidney disease stage: on chronic dialysis Qualified Code(s): N18.6 - End stage renal disease; D63.1 - Anemia in chronic kidney disease; Z99.2 - Dependence on renal dialysis (4) End stage renal disease Onset Date: 05/12/16 Current Visit: No Status: Chronic Plan: Patient will continue with dialysis. Nephrology consulted. (5) HTN (hypertension) Onset Date: 06/25/17 Current Visit: No Status: Chronic Plan: Continues medication. Will monitor and adjust appropriately. Qualifiers: Hypertension type: essential hypertension Qualified Code(s): I10 - Essential (primary) hypertension (6) Pleural effusion Onset Date: 06/25/17 Current Visit: No Status: Acute Plan: Pleural effusion noted. Overall stable. Will wean off oxygen. No intervention needed as per pulmonology. Will monitor closely. (7) Hyperlipidemia Current Visit: Yes Status: Chronic Plan: Continue medication. Qualifiers: Hyperlipidemia type: unspecified Qualified Code(s): E78.5 - Hyperlipidemia , unspecified (8) Depression Current Visit: Yes Status: Chronic Plan: Continue medication. Qualifiers: Depression Type: unspecified Qualified Code(s): F32.9 - Major depressive disorder, single episode, unspecified (9) Abnormal CT scan Current Visit: Yes Status: Chronic Plan: Patient was transferred to higher level center to address pleural effusion on previous hospitalization. Patient had VATS procedure in June. Repeat chest x- ray shows cystic cavity with air-fluid level in the anterior left upper lung field. Trapped lung likely. Pulmonology doubts an infection process. Will continue with IV antibiotic therapy due to blood culture.will wean off oxygen. Await blood culture results. Patient will need antibiotic therapy for 2 weeks. Awaiting transfer to inpatient rehab. (10) Bacteremia Current Visit: Yes Status: Acute Plan: Gram negative raman positive from 1/2 blood cultures. Will continue Zosyn. Await culture results. 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 Will wean off oxygen. Case discussed with pulmonology. (12) Atelectasis of both lungs Current Visit: Yes Status: Chronic Plan: Continue to wean off oxygen. Will provide incentive spirometer. Discharge Plan: Other (Inpatient rehab) Plan to discharge in: 24 Hours Time Spent Managing Pts Care (In Minutes): 55
--- NOTE | 2017-08-10 09:47 | P.CNS ---
Date of Consult: 08/10/17 Primary Care Provider: Dr. Beach Chief Complaint: Pleural effusion History of Present Illness: Patient is 42 years of age I just saw him my clinic I last week this admitted here a few weeks ago to the emergency room was found to have a loculated pleural effusion on the left side was transferred to [facility]. Decortication was performed on the left side patient did have some stitches in no evidence of pleural fluid infection probably trapped lung from his renal failure he was then discharged home seen by his primary care physician patient was losing weight not eating and was prescribed an antidepressant. He has been complaining of shortness of breath also complaining of cough and congestion at the time of my evaluation patient did not appear in any significant distress was at his baseline Palestinian-speaking only Allergies No Known Allergies Allergy (Unverified 06/25/17 08:25) Home Medications: Amlodipine [Norvasc*] 10 mg PO TID 01/13/16 Atorvastatin Calcium 40 mg PO DAILY 01/13/16 Insulin NPH Human [Novolin N (Humulin N)*] 10 units SQ SEECOM 01/13/16 Carvedilol [Coreg*] 6.25 mg PO BID #60 tab 05/16/16 Calcium Acetate 2 cap PO TID 08/07/17 Doxazosin [Cardura] 2 mg PO BID 08/07/17 Glipizide [Glucotrol] 5 mg PO DAILY 08/07/17 Insulin NPH Human [Novolin N (Humulin N)*] 5 units SQ BEDTIME 08/07/17 Mirtazapine 1 tab PO DAILY 08/07/17 Sertraline HCl 1 tab PO DAILY 08/07/17 Tramadol HCl [Ultram] 50 mg PO TID PRN 08/07/17 Vit B Comp&C/Folic Acid/Vit D3 [Dialyvite 800 Plus D Wafer] 1 tab PO DAILY 08/07 - Past Medical/Surgical History Diabetic: Yes -: IDDM -: ESRD on HD -: HTN -: Hyperlipidemia -: HD fistula -: Recent left-sided vats - Family History dad Medical History: Diabetes - Social History Smoking Status: Never smoker Alcohol use: No CD- Drugs: No Caffeine use: Yes Place of Residence: Home Review of Systems is unable to be obtained Physical Examination Temp Pulse Resp BP Pulse Ox 98.7 F 101 H 18 149/78 H 98 08/10/17 09:38 08/10/17 09:38 08/10/17 09:38 08/10/17 09:38 08/10/17 09:38 General: Alert, Cooperative Respiratory: Diminished (Diminished air entry on the left side) Cardiovascular: No edema, Regular rate/rhythm Gastrointestinal: Normal bowel sounds, Soft and benign - Problems (1) Pleural effusion Onset Date: 06/25/17 Current Visit: No Status: Acute Plan: Patient is 42 years of age admitted to the hospital with shortness of breath he recently had a vats done no evidence of pleural infection admitted with worsening shortness of breath he is high risk for thromboembolism I recommend a CT pulmonary angiogram the recent CT scan showed some pleural effusion on the right side changes on the left side mildly elevated white count he has chronic renal failure blood cultures most likely contaminant is Gram positive rods only 1 bottle I doubt if this is septic he probably has underlying significant depression increase the dose of Remeron continue with Zosyn until organism has been identified patient has borderline oxygenation I will check room air ABG
[2017-08-10] MEDS ORDERED: ALBUTEROL 2.5 MG/3 ML NEB SOL NEB PRN (09:49)
[2017-08-10 10:40] LABS: Blood Gas Oxyhemoglobin 82.5 % (94-97); Blood O2 Saturation 84.4 % (92-98.5)
--- NOTE | 2017-08-10 13:24 | ECHO ---
HEIGHT: 5 ft 4 in WEIGHT: 84 lb 4 oz DATE OF STUDY: 08/10/[address]: Mervin Figueroa MD 2-DIMENSIONAL: YES M.MODE: YES DOPPLER: YES COLOR FLOW: YES TDS: NO PORTABLE: NO DEFINITY: NO BUBBLE STUDY: NO DIAGNOSIS: SHORTNESS OF BREATH CARDIAC HISTORY: CATHERIZATION: NO SURGERY: NO PROSTHETIC VALVE: NO PACEMAKER: NO MEASUREMENTS (cm) DIASTOLIC (NORMALS) SYSTOLIC (NORMALS) IVSd (0.6-1.2) LA Diam (1.9-4.0) LVEF 50-55% LVIDd (3.5-5.7) LVIDs (2.0-3.5) %FS % LVPWd (0.6-1.2) Ao Diam (2.0-3.7) 2 DIMENSIONAL ASSESSMENT: RIGHT ATRIUM: DILATED LEFT ATRIUM: DILATED RIGHT VENTRICLE: NORMAL LEFT VENTRICLE: LEFT VENTRICULAR HYPERTROPHY TRICUSPID VALVE: NORMAL MITRAL VALVE: NORMAL PULMONIC VALVE: NORMAL AORTIC VALVE: NORMAL PERICARDIAL EFFUSION: VERY SMALL AORTIC ROOT: NORMAL LEFT VENTRICULAR WALL MOTION: NORMAL DOPPLER/COLOR FLOW: MILD MITRAL AND TRICUPSID REGURGITATION. NORMAL RIGHT VENTRIUCLAR SYSTOLIC PRESSURE. IMPAIRED LEFT VENTRICULAR RELAXATION. COMMENTS: NORMAL LEFT VENTRICULAR EJECTION FRACTION. LEFT VENTRICULAR HYPERTROPHY. DILATED LEFT AND RIGHT ATRIUM. VERY SMALL PERCARDIAL EFFUSION. MILD MITRAL AND TRICUPSID REGURGITATION. IMPAIRED LEFT VENTRICULAR RELAXATION. NO CHANGE SINCE 05/11/2016. TECHNOLOGIST: Quinn MCCLURE
--- NOTE | 2017-08-10 14:42 | RAD REPORT ---
EXAM DESCRIPTION: CT - Chest For Pe Angio - 08/10/2017 2:21 pm CLINICAL HISTORY: Pneumonia, pleural effusion, shortness of breath COMPARISON: Chest exam August 08, CT study August 06 TECHNIQUE: Dynamically enhanced 3 mm thick images of the chest were obtained during administration o f approximately 150mL Isovue 370 IV contrast. Coronal and oblique reconstruction images were generate d and reviewed. Exam utilizes a protocol to evaluate the pulmonary arterial tree. All CT scans are performed using dose optimization technique as appropriate and may include automated exposure control or mA/KV adjustment according to patient size. FINDINGS: No pulmonary emboli are identified. The aorta as imaged shows no acute or suspicious finding. Cardiomegaly is evident without pericardial thickening or effusion. Left ventricular hypertrophy is suspected but is limited sensitivity on CT i maging. Cystic cavity with air-fluid level in the anterior superior left hemithorax is not significantly diff erent from the August 06 study. There is a combination of pneumonia and atelectasis in the left lower lobe. Left-sided pleural fluid and pleural thickening changes are present also seen as stable. Modera tely large right pleural effusion is present. There is partial atelectasis of the right lower lobe an d minimal atelectasis of the right middle lobe. No acute finding in the right-sided lung parenchyma. No pneumothorax on the right. No mediastinal or hilar suspicious masses. No chest wall masses or abnormal axillary lymphadenopathy. IMPRESSION: No pulmonary emboli identified. Moderate right-sided pleural effusion with partial atelectasis right lower lobe and minimal atelectas is changes right middle lobe. Atelectasis and pneumonia findings are seen in the left lower lobe. Pattern is similar to August 06. Cystic cavity left apex with air-fluid level has not clearly changed.
--- NOTE | 2017-08-10 14:49 | RAD REPORT ---
EXAM DESCRIPTION: VAS - Extrem Venous W Compress Yuri - 08/10/2017 2:32 pm CLINICAL HISTORY: Leg pain and swelling COMPARISON: None. TECHNIQUE: Real-time sonographic evaluation of the bilateral lower extremity deep venous systems was performed. Grayscale and Doppler assessment performed. FINDINGS: Normal compressibility, flow augmentation, phasic flow and spontaneous flow are identified in the left and right lower extremity common femoral, superficial femoral and popliteal veins. Deep veins at the ankle are also clear. No intraluminal filling defects seen. IMPRESSION: No DVT in either lower extremity.
[2017-08-10] MEDS ORDERED: IPRATROPIUM BROM 0.5MG/2.5ML NEB PRN (15:04)
[2017-08-10 15:07] VITALS: O2SAT 98
--- NOTE | 2017-08-10 16:41 | P.DS ---
Admission Date: 08/06/17 Discharge Date: 08/10/17 Primary Care Provider: Dr. Beach Disposition: TRANSFER TO INPATIENT REHAB Discharge Condition: GOOD Reason for Admission: Pleural effusion Consultations: Pulmonary-Dr. Figueroa Nephrology-Dr. Menchaca Procedures: CT scan: COMPARISON: Chest exam August 08, CT study August 06 TECHNIQUE: Dynamically enhanced 3 mm thick images of the chest were obtained during administration of approximately 150mL Isovue 370 IV contrast. Coronal and oblique reconstruction images were generated and reviewed. Exam utilizes a protocol to evaluate the pulmonary arterial tree. All CT scans are performed using dose optimization technique as appropriate and may include automated exposure control or mA/KV adjustment according to patient size. FINDINGS: No pulmonary emboli are identified. The aorta as imaged shows no acute or suspicious finding. Cardiomegaly is evident without pericardial thickening or effusion. Left ventricular hypertrophy is suspected but is limited sensitivity on CT imaging. Cystic cavity with air-fluid level in the anterior superior left hemithorax is not significantly different from the August 06 study. There is a combination of pneumonia and atelectasis in the left lower lobe. Left-sided pleural fluid and pleural thickening changes are present also seen as stable. Moderately large right pleural effusion is present. There is partial atelectasis of the right lower lobe and minimal atelectasis of the right middle lobe. No acute finding in the right-sided lung parenchyma. No pneumothorax on the right. No mediastinal or hilar suspicious masses. No chest wall masses or abnormal axillary lymphadenopathy. IMPRESSION: No pulmonary emboli identified. Moderate right-sided pleural effusion with partial atelectasis right lower lobe and minimal atelectasis changes right middle lobe. Atelectasis and pneumonia findings are seen in the left lower lobe. Pattern is similar to August 06. Cystic cavity left apex with air-fluid level has not clearly changed. ECHO: Ejection fraction 50% DOPPLER/COLOR FLOW: MILD MITRAL AND TRICUPSID REGURGITATION. NORMAL RIGHT VENTRIUCLAR SYSTOLIC PRESSURE. IMPAIRED LEFT VENTRICULAR RELAXATION. COMMENTS: NORMAL LEFT VENTRICULAR EJECTION FRACTION. LEFT VENTRICULAR HYPERTROPHY. DILATED LEFT AND RIGHT ATRIUM. VERY SMALL PERCARDIAL EFFUSION. MILD MITRAL AND TRICUPSID REGURGITATION. IMPAIRED LEFT VENTRICULAR RELAXATION. NO CHANGE SINCE 05/11/2016. Venous doppler: COMPARISON: None. TECHNIQUE: Real-time sonographic evaluation of the bilateral lower extremity deep venous systems was performed. Grayscale and Doppler assessment performed. FINDINGS: Normal compressibility, flow augmentation, phasic flow and spontaneous flow are identified in the left and right lower extremity common femoral, superficial femoral and popliteal veins. Deep veins at the ankle are also clear. No intraluminal filling defects seen. IMPRESSION: No DVT in either lower extremity. 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 (2) Pneumonia Onset Date: 08/07/17 Current Visit: Yes Status: Acute Qualifiers: Pneumonia type: due to unspecified organism Laterality: left Lung location: lower lobe of lung Qualified Code(s): J18.1 - Lobar pneumonia, unspecified organism (3) Anemia Current Visit: No Status: Chronic Qualifiers: Anemia type: due to chronic kidney disease Chronic kidney disease stage: on chronic dialysis Qualified Code(s): N18.6 - End stage renal disease; D63.1 - Anemia in chronic kidney disease; Z99.2 - Dependence on renal dialysis (4) End stage renal disease Onset Date: 05/12/16 Current Visit: No Status: Chronic (5) HTN (hypertension) Onset Date: 06/25/17 Current Visit: No Status: Chronic Qualifiers: Hypertension type: essential hypertension Qualified Code(s): I10 - Essential (primary) hypertension (6) Pleural effusion Onset Date: 06/25/17 Current Visit: No Status: Acute (7) Hyperlipidemia Current Visit: Yes Status: Chronic Qualifiers: Hyperlipidemia type: unspecified Qualified Code(s): E78.5 - Hyperlipidemia , unspecified (8) Depression Current Visit: Yes Status: Chronic Qualifiers: Depression Type: unspecified Qualified Code(s): F32.9 - Major depressive disorder, single episode, unspecified (9) Abnormal CT scan Current Visit: Yes Status: Chronic (10) Bacteremia Current Visit: Yes Status: Acute (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 Patient had been recently hospitalized in transferred to [facility] for loculated pleural effusion. Patient had decortication of the pleural effusion on the left side. Patient was discharged. Since that time he has had some cough and congestion. Patient with diabetes, hypertension, hyperlipidemia, end-stage renal disease. Patient with history of noncompliance. On CT scan patient found to have left lower lobe pneumonia, right pleural effusion noted. Trapped lung also noted with atelectasis. Patient was admitted for further evaluation and treatment. Hospital Course: During the course of stay the patient was evaluated by pulmonology. Patient was started on IV Zosyn for his pneumonia. 1/2 blood cultures were positive for Gram-positive rods. During this time his condition improved. Patient still feeling weak at times. Physical therapy has worked with the patient. Physical therapy recommends inpatient rehab. Patient be transferred to inpatient rehab. Currently blood cultures are pending. Patient will continue with IV Zosyn. Blood cultures will need to be followed up by a vocational rehabilitation counselor. Patient can be transition to oral medication for his pneumonia and blood culture when this has been resulted. Pulmonology further evaluated the patient for possible pulmonary embolism. CT scan showed no pulmonary embolism. Right pleural effusion, bilateral atelectasis, left lower lobe pneumonia and left trapped lung noted. Venous Doppler of the lower ext showed no DVT. Patient will need to follow up with pulmonology as an outpatient to further monitor. Patient will continue with oxygen to maintain sats above 90%. This can be weaned off. Patient has diabetes. Patient non compliant in the past. Hemoglobin A1c elevated. Medications have been adjusted. Patient will no longer take glipizide due to risk of hypoglycemia. NPH has been adjusted to twice daily. At discharge to rehab patient will continue with insulin NPH 10 units in the morning and 5 units at night. Recommendation is to maintain blood sugars less than 140 fasting and less than 200 after meals. Further adjustment can be done by inpatient rehab. Patient has hypertension. Medications adjusted during his stay. Patient will continue with Norvasc 10 mg daily, carvedilol 6.25 mg 1 pill twice daily, and Cardura 1 mg 1 pill twice daily. Recommendation is to maintain blood pressures less 150/80. Further adjustment can be done by inpatient rehab. Patient has hyperlipidemia. Patient continue with Lipitor 40 mg daily. Patient has depression with anxiety. Patient will continue with Zoloft 50 mg daily. Remeron 7.5 mg at night as needed for insomnia. Patient has end-stage renal disease. Patient will continue with dialysis. Patient will continue with Renvela 1600 mg 1 pill 3 times a day. Patient with malnutrition. Patient will continue with oral supplementation. Encourage oral intake. Vital Signs/Physical Exam: Temp Pulse Resp BP Pulse Ox 98.7 F 101 H 18 149/78 H 98 08/10/17 09:38 08/10/17 09:38 08/10/17 09:38 08/10/17 09:38 08/10/17 09:38 General: Alert, In no apparent distress, Oriented x3, Cooperative, Cachectic HEENT: Atraumatic Neck: Supple Respiratory: Clear to auscultation bilaterally Cardiovascular: Normal pulses, Regular rate/rhythm Gastrointestinal: Normal bowel sounds, Soft and benign, Non-distended, No tenderness, No masses, No rebound, No guarding Musculoskeletal: No erythema, No tenderness, No warmth Integumentary: No tenderness/swelling, No erythema, No warmth, No cyanosis Neurological: Normal speech, Normal strength at 5/5 x4 extr, Normal tone, Normal affect Lymphatics: No axilla or inguinal lymphadenopathy Laboratory Data at Discharge: WBC 14.4 K/uL (4.3-10.9) H D 08/10/17 04:27 Hgb 10.3 g/dL (13.6-17.9) L 08/10/17 04:27 Hct 31.1 % (39.6-49.0) L 08/10/17 04:27 Plt Count 413 K/uL (152-406) H 08/10/17 04:27 PT 14.1 SECONDS (9.5-12.5) H 08/06/17 17:15 INR 1.19 08/06/17 17:15 Sodium 141 mmol/L (136-145) 08/10/17 04:27 Potassium 3.7 mmol/L (3.5-5.1) 08/10/17 04:27 BUN 21 mg/dL (7-18) H 08/10/17 04:27 Creatinine 3.30 mg/dL (0.55-1.3) H D 08/10/17 04:27 Glucose 57 mg/dL (74-106) L 08/10/17 04:27 Phosphorus 3.0 mg/dL (2.5-4.9) 08/07/17 04:27 Magnesium 2.1 mg/dL (1.8-2.4) 08/10/17 04:27 Total Bilirubin 0.3 mg/dL (0.2-1.0) 08/09/17 04:48 AST 14 U/L (15-37) L 08/09/17 04:48 ALT 33 U/L (12-78) 08/09/17 04:48 Alkaline Phosphatase 145 U/L (45-117) H 08/09/17 04:48 Triglycerides 59 mg/dL (<150) 08/07/17 04:27 Cholesterol 73 mg/dL (<200) 08/07/17 04:27 HDL Cholesterol 30 mg/dL (40-60) L 08/07/17 04:27 Cholesterol/HDL Ratio 2.43 08/07/17 04:27 Home Medications: Atorvastatin Calcium 40 mg PO DAILY 01/13/16 Insulin NPH Human [Novolin N (Humulin N)*] 10 units SQ SEECOM 01/13/16 Carvedilol [Coreg*] 6.25 mg PO BID #60 tab 05/16/16 Insulin NPH Human [Novolin N (Humulin N)*] 5 units SQ BEDTIME 08/07/17 Mirtazapine 1 tab PO DAILY 08/07/17 Sertraline HCl 1 tab PO DAILY 08/07/17 Tramadol HCl [Ultram] 50 mg PO TID PRN 08/07/17 Amlodipine [Norvasc*] 10 mg PO DAILY #30 tab 08/10/17 Doxazosin [Cardura*] 1 mg PO BID #60 tab 08/10/17 Nepro Shake [Nepro*] 237 ml PO BID #60 can 08/10/17 Sevelamer Carbonate [Renvela*] 1,600 mg PO TIDWM #90 tablet 08/10/17 New Medications: Amlodipine [Norvasc*] 10 mg PO DAILY #30 tab Doxazosin [Cardura*] 1 mg PO BID #60 tab Nepro Shake [Nepro*] 237 ml PO BID #60 can Sevelamer Carbonate [Renvela*] 1,600 mg PO TIDWM #90 tablet Patient Discharge Instructions: 1. Patient be transferred to inpatient rehab. 2. Patient presented with cough, congestion. Patient with recent history of loculated pleural effusions status post decortication. This was done at [facility] in [place]. CT scan showed no pulmonary embolism. Right pleural effusion, bilateral atelectasis, left lower lobe pneumonia and left trapped lung was noted. Patient was treated for pneumonia. Blood cultures positive 1/2 for Gram negative rods. Culture pending at this time. Venous Doppler of the lower ext showed no DVT. Patient evaluated by pulmonology. Patient will continue current IV antibiotic therapy-Zosyn 2.2 g every 8 hr. This will need to be continued Await results of blood culture. Patient can be transition to oral medication once results have been obtained. Patient continue with oxygen to maintain sats above 90%. This can be weaned off. 3. Patient has diabetes. Patient non compliant in the past. Hemoglobin A1c elevated. Medications have been adjusted. Patient will no longer take glipizide due to risk of hypoglycemia. NPH has been adjusted to twice daily. At discharge to rehab patient will continue with insulin NPH 10 units in the morning and 5 units at night. Recommendation is to maintain blood sugars less than 140 fasting and less than 200 after meals. Further adjustment can be done by inpatient rehab. 4. Patient has hypertension. Medications adjusted during his stay. Patient will continue with Norvasc 10 mg daily, carvedilol 6.25 mg 1 pill twice daily, and Cardura 1 mg 1 pill twice daily. Recommendation is to maintain blood pressures less 150/80. Further adjustment can be done by inpatient rehab. 5. Patient has hyperlipidemia. Patient continue with Lipitor 40 mg daily. 6. Patient has depression with anxiety. Patient will continue with Zoloft 50 mg daily. Remeron 7.5 mg at night as needed for insomnia. 7. Patient has end-stage renal disease. Patient will continue with dialysis. Patient will continue with Renvela 1600 mg 1 pill 3 times a day. 8. Patient with malnutrition. Patient will continue with oral supplementation. Encourage oral intake. 9. Patient may continue with tramadol as needed for pain. 10. Patient to continue with physical therapy. Diet: ADA Activity: Fall precautions Time spent managing pt's care (in minutes): 55
[2017-08-10 16:54] VITALS: BP 145/81; TEMP 97.7
[2017-08-10] MEDS: ENOXAPARIN 30 MG/0.3 ML SQ SCH (17:08)
--- NOTE | 2017-08-11 00:10 | PN ---
Date of Progress Note: 08/10/2017 Chief Complaint: End-stage renal disease, on dialysis. History Of Present Illness: The patient presented to the hospital because of severe weakness, shortness of breath. The patient has malnutrition, failure to thrive, and he was found to have pneumonia. He has been treated with antibiotics of broad spectrum. The patient has diabetes mellitus and is insulin dependent. Review of Systems: Denies chills. Denies nausea or vomiting. Physical Examination: Lungs: Diminished breath sounds at bases. Few crackles. Heart: S1, S2. Abdomen: Soft, benign. Extremities: No edema. Impression And Plan: 1. End-stage renal disease. The patient will continue dialysis 3 times a week. Dialysis will be done tomorrow. The patient is euvolemic. Continue low-sodium diet and low-potassium diet. 1. Renal osteodystrophy. Monitor phosphorus level and adjust binders. 2. Hypoalbuminemia, malnutrition. Increase p.o. protein intake. Advance protein supplements. 3. Hypertension. Continue current blood pressure medication. VIJAY/LON Voice ID: [id number] Report ID: [id number] MTDFlor
[2017-08-11] MEDS ORDERED: MIRTAZAPINE 15 MG TAB PO SCH (09:00)
== END 2017-08-10 17:50 | DRG 193 ==
LOC: ER 16:39 → ERHOLD 18:50 → 2ND 20:58
PROVIDERS: ADMIT Hospitalist; ATTEND Family Medicine
PROC: 5A1D70Z Performance of Urinary Filtration, Intermittent, Less than 6 Hours Per Day (ICD-10-PCS; principal; 2017-08-07)
PROC: 30233N1 Transfusion of Nonautologous Red Blood Cells into Peripheral Vein, Percutaneous Approach (ICD-10-PCS; 2017-08-07)
DX: J18.9 Pneumonia, unspecified organism (principal); N18.6 End stage renal disease; I12.0 Hypertensive chronic kidney disease with stage 5 chronic kidney disease or end stage renal disease; J90 Pleural effusion, not elsewhere classified; J98.11 Atelectasis; E44.0 Moderate protein-calorie malnutrition; R78.81 Bacteremia; Z68.1 Body mass index [BMI] 19.9 or less, adult; E11.22 Type 2 diabetes mellitus with diabetic chronic kidney disease; Z99.2 Dependence on renal dialysis; Z79.4 Long term (current) use of insulin; N25.0 Renal osteodystrophy; D63.1 Anemia in chronic kidney disease; E78.5 Hyperlipidemia, unspecified; Z91.19 Patient's noncompliance with other medical treatment and regimen; F41.8 Other specified anxiety disorders
CPT/HCPCS: 36415; 71045; 71046; 71250; 71275; 80048; 80053; 80061; 80076; 82805; 82962; 83735; 83880; 84100; 84145; 84484; 85025; 85610; 86704; 86706; 86803; 86850; 86900; 86901; 87040; 87205; 87340; 90935; 93005; 93306; 93970; 94640; 94760; 96365; 97163; 99284; J1650; J2543; P9016; Q9967

== ENCOUNTER 2017-08-10 13:49 | Inpatient (IN) | payer OTHER ==
--- NOTE | 2017-08-10 16:53 | R.PREADM ---
SCREENING DATE AND TIME 08/10/2017 14:28 (CDT) ANTICIPATED REHAB ADMISSION DATE 08/12/2017 REFERRING FACILITY [facility] REFERRAL DATE AND TIME 08/10/2017 14:28 (CDT) REFERRAL ROOM# 210 ACUTE ADMIT DATE 08/06/2017 Previous Rehabilitation(s): No. REFERRING PHYSICIAN DR. VARINDER WADDELL REHAB FACILITY [facility] CLINICAL LIAISON Artie Roblero PHYSICIAN REVIEWER Dr. Alessandro Khan M.D. MR# [id number] NAME JAH BARRERA ADDRESS [address] [place] ZIP [id number] DATE OF 1975 AGE 42 N# [id number] GENDER male MARITAL STATUS Single (Never ) RACE white ADMIT FROM 02 - [facility] PRE-HOSPITAL LIVING SETTING 01 - Home (private home/apt. board/care, assisted living, long-term, transitional living) HOME TYPE AND DETAILS Type of home: single family house # of levels in the residence: 1 # of steps within the residence: 0 # of steps to enter the residence: 0 PRE-HOSPITAL LIVING WITH Family/Relatives FAMILY SUPPORT Yes PRIMARY FAMILY CONTACT NAME Ana Barrera PRIMARY FAMILY CONTACT PHONE PRIMARY FAMILY CONTACT RELATIONSHIP Mother PHONE PRIMARY FAMILY CONTACT ON ADM.? no IS PRIMARY FAMILY CONTACT AUTH. REP.? no 1ST EMERGENCY CONTACT Ana Barrera 1ST CONTACT PHONE 1ST CONTACT RELATIONSHIP Mother PHONE 1ST CONTACT ON ADM. no IS 1ST CONTACT AUTH. REP.? no PHONE 2ND CONTACT ON ADM.? no PATIENT EMPLOYMENT STATUS Disabled PATIENT EMPLOYER No Employer PAYOR INFORMATION: 1ST PAYOR NAME MEDICARE 1ST PAYOR PHONE [phone] 1ST PAYOR INJURY/ILLNESS DUE TO ACCIDENT? No ANOTHER GREEN PARTY RESPONSIBLE? No PRIMARY REHAB/ACUTE DIAGNOSIS: CHF ONSET DATE 08/06/2017 REHAB IMPAIRMENT CATEGORY (ADRIENNE): 14 Cardiac does NOT meet 60% rule PRIMARY DIAGNOSIS-RELATED SURGERIES: N/A COMORBID REHAB/ACUTE DIAGNOSES: - Tier 1 Dependence on renal dialysis [Z992] - Tier 3 Pneumonia, unspecified organism [J189] - Non-Tiered Type 2 diabetes mellitus with diabetic neuropathy, unspecified [E1140] - N/A CKD ANEMIA ESRD PLEURAL EFFUSION PNEUMONIA RENAL OSTEODYSTROPHY HYPOALBUMINEMIA HTN INTERVENTIONS: - Pneumonia Cultures Fluid management Labs Oxygen Respiratory management X-rays RISK FOR COMPLICATIONS: - Pneumonia Respiratory failure Sepsis SUMMARY OF ACUTE HOSPITALIZATION: Pt. is a 42 yo Right-handed white male. On 08/06/2017 he was admitted to [facility] with diagnosis CHF. His impairment category is Cardiac 09 - Cardiac Disorders (09). Pre-morbidly, Pt. was independent/mod-I in Communication, Social Cognition, Self-Care, Locomotion, Sp hincter Control, and Transfers Control; and he had good Sphincter Control. Currently, he has deficits of Balance, Locomotion, Endurance, Safety Awareness, Transfers Control, an d Self-Care. Pt. is now referred to [facility] for acute in-patient rehabilitation in order to maximize patient's functional independence in activities of daily living, strength, ROM, and mobi lity. Patient has realistic goal of being discharged at assistance level 6-Yayo to reside at Home with Fam facundo/Relatives. PAST MEDICAL HISTORY ANEMIA CKD Dependence on renal dialysis [Z992] ESRD HTN HYPOALBUMINEMIA PLEURAL EFFUSION PNEUMONIA Pneumonia, unspecified organism [J189] RENAL OSTEODYSTROPHY Type 2 diabetes mellitus with diabetic neuropathy, unspecified [E1140] PAST SURGICAL HISTORY: AV fistula creation MEDICATION ALLERGIES: No Known Drug Allergies (NKDA) ENVIRONMENTAL ALLERGIES: None Known - Substance Allergies None Known - Other Allergies None Known CODE STATUS: Full code WEIGHT/HEIGHT/BMI: WEIGHT 84 lbs HEIGHT 5' 4" BMI 14.4 DIET: - Diet Type ADA 2000 jung - Diet - Solid Texture Regular - Diet - Liquid Texture Regular - Tube Feed N/A REVIEW OF SYSTEMS: - Gen Alert and awake Lying in bed No apparent distress Oriented to: person, time, and place - Vital Signs Temperature: 98.7 F SBP/DBP: 149/78 Pulse: 101 Resp: 18 Vital signs stable, afebrile - CVS RRR VITAL SIGNS Temperature: 98.7 F SBP/DBP: 149/78 Pulse: 101 Resp: 18 Vital signs stable, afebrile CURRENT SPHINCTER CONTROL: Pre-hospital bladder status: continent # of bladder accidents in the last 7 days prior to screenin Pre-hospital bowel status: continent # of bowel accidents in the last 7 days prior to screenin Last Bowel Movement Date: DETAILED CURRENT FUNCTIONAL STATUS: - Bladder accident frequency: Ind - No accidents in the past 7 days - Bowel accident frequency: Ind - No accidents in the past 7 days - Walking score based on distance walked: 3(>=150ft) - Wheelchair score based on distance traveled: 0(N/A) FUNCTIONAL STATUS: - Self-Care A. Eating Ind Ind B. Grooming Ind Yayo C. Bathing Ind sup D. Dressing - Upper Ind sup E. Dressing - Lower Ind sup F. Toileting Ind sup - Sphincter Control G: Bladder control Ind Ind H: Bowel control Ind Ind - Transfers Control I. Bed/Chair/Wheelchair Ind Luis J. Toilet Ind Luis K. Tub/Shower Ind ADNO - Locomotion L. Walk/Wheelchair (C) Ind Luis L. Walk/Wheelchair (W) Ind Luis M. Stairs Ind ADNO - Communication N. Comprehension (B) Ind Ind O. Expression (B) Ind Ind - Social Cognition P. Social Interaction Ind Ind Q. Problem Solving Ind Ind R. Memory Ind Ind - Endurance Fair - Balance Poor - Safety Awareness Fair CURRENT FUNC. DEFICITS: Balance, Locomotion, Endurance, Safety Awareness, Transfers Control, and Self-Care THERAPY NOTES FROM ACUTE CARE: Attached. SPECIAL NEEDS: - Safety Concerns Skin breakdown precautions needed due to skin breakdown risk PATIENT NEEDS ACTIVE AND ONGOING THERAPEUTIC INTERVENTION OF MULTIPLE THERAPY DISCIPLINES, INCLUDING: - Occupational Therapy Evaluate and Treat. - Physical Therapy Evaluate and Treat. PATIENT NEEDS CLOSE MEDICAL SUPERVISION BY A REHABILITATION PHYSICIAN FOR: Bowel and Bladder Management Coordination of Treatment Team Diabetes Management DVT Management Pain Management Medical and Co-Morbidity Management PATIENT REQUIRES 24X7 REHAB NURSING FOR MEDICAL AND FUNCTIONAL MGT. OF THE FOLLOWING DEFICITS: ADL's Ambulation Bowel and Bladder Management Communication Disease Management Medication Management Patient/Family Education Providing Safe Environment Transfers Pain Management PATIENT REQUIRES INTENSIVE, COORDINATED INTERDISCIPLINARY APPROACH TO REHAB: Arranging Home Equipment/Services Discharge Planning Family Intervention/Training [place]/Case Management PATIENT REHAB POTENTIAL: Expected level of measurable improvement will be of a practical value to patient's functional capacit y or adaptations to impairments Has a viable Discharge Plan Medically appropriate; condition is sufficiently stable to participate in intensive rehab program Patient is able and expected to receive 3 hours of individualized therapy daily on at least 5 of ever y 7 days Patient's prognosis for significant practical improvement within a reasonable period of time appears Good DISCHARGE PLAN: - Estimated Length of Stay (days) 10. - Consensus on plan Discharge plan has been discussed with primary caregiver. Patient/Family is in agreement with the cedric n. Primary caregiver is in agreement with the plan. - Patient/Family Goals Return home with assistance. - Planned Living Setting Upon Discharge Home, to live with Family/Relatives. RECOMMENDED CARE LEVEL: IRF RECOMMENDATION DETAILS: Recommended Admission to Comprehensive Rehabilitation Program to Increase Functional [place] SCREENER'S COMPLETENESS CONFIRMATION: - Screening Confirmation The patient data collection on this preadmission screening form is finished PHYSICIANS REVIEW AND ADMISSION DETERMINATION Admit - Based on my review of the Pre-Admission Screening results, in my medical judgment and experie nce, I concur with the findings and recommend admission to [facility], as this patient requires an IRF level of care. SIGNATURE PANEL: Clinical Liaison - [electronically] signed by Artie Roblero on 08/10/2017 at 15:09 (CDT) Physician Reviewer - [electronically] signed by Dr. Alessandro Khan M.D. on 08/10/2017 at 15:53 (CDT )
--- OUTSIDE RECORDS SUMMARY | 2017-08-10 18:17 | XMS REPORT | Clinical Summary ---
:1975 Author Organization [facility] Address [address] [place] [address] Phone Care Team Providers Name Role Phone [...] Pleural effusion 06/26/2017 ILD (interstitial lung disease) ([facility]) 02/23/2017 ESRD (end stage renal disease) on dialysis ([facility]) 06/30/2016 ESRD (end stage renal disease) ([facility]) 05/08/2016 ESRD on hemodialysis ([facility]) Encounters Date Type Specialty Care Team Description 07/05/2017 Orders Only General Internal Medicine 06/30/2017 Procedure Pass 06/30/2017 Surgery Guillermo Snow MD 06/29/2017 Anesthesia Event Austin Metcalf MD 06/26/2017 - Hospital Encounter Cardiology Hiro, ESRD (end stage 07/15/2017 MD Lashae renal disease) on Wilfred Wray dialysis ([facility]);ILD MD Jean Pierre (interstitial lung Gadicherla, Laura disease) MD Lance ([facility]);Pleural Shiekh Sroujieh, effusion;Empyema Rylee Ordoñez MD lung Guillermo Snow ([facility]);Sascha Eubanks MD 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 ([facility]);Chronic diastolic heart failure ([facility]);Acute respiratory insufficiency;Curre nt moderate episode of major depressive disorder without prior episode ([facility]) 05/02/2017 Telephone Transplant Rigo Callejas RN Follow-up [...] Callejas RN ESRD (end stage renal disease) ([facility]) (Primary Dx) 08/16/2016 Hospital Encounter Radiology Gaetano Tejeda ESRD (end stage B., MD renal disease) (HCC) 08/16/2016 Hospital Encounter Radiology Gaetano Tejeda ESRD (end stage B., MD renal disease) (HCC) 08/16/2016 Hospital Encounter Gaetano Tejeda ESRD (end stage B., MD renal disease) (HCC) 08/16/2016 Orders Only Transplant Gaetano Tejeda ESRD (end stage Hepatology B., MD renal disease) ([facility]) 08/16/2016 Office Visit Transplant Gaetano Tejeda MD Labrador, Florencia P, RN 08/16/2016 Committee Review Transplant Diane Murillo 08/11/2016 Orders Only Transplant Alexsandra Starr Pre-transplant Georgi RN evaluation for chronic kidney disease (Primary Dx) after 08/09/2016 Social History Tobacco Use Types Packs/Day Years [...] INFLUENZA VACCINE 11/05/2017 Implants Implanted Type Area Client Program Manager Device Expiration Model / Identifier Date Serial / Lot Matrix Floseal Hemo W/O Ndl5ml [id number] - [id number] Cement/Fi Left: Arm MCINTOSH:BIOSCI 08/04/2017 [id number] / Implanted: Qty: 1 on 05/08/2016 by Codie Lim MD ller/Daniel Lopez / xiomara [id number] Matrix Floseal Hemo W/O Ndl5ml [id number] - [id number] Cement/Fi Left: Arm MCINTOSH:BIOSCI 12/04/2017 [id number] / Implanted: Qty: 1 on 06/30/2016 by Codie Lim MD ller/Daniel Lopez / xiomara [id number] Procedures Procedure Name Priority Date/Time Associated Diagnosis Comments INSERTION,CHEST TUBE 06/30/2017 8:00 AM ESRD (end stage renal CDT disease) ([facility]) THORACOSCOPY 06/30/2017 8:00 AM ESRD (end stage renal (VATS),DECORTICATION CDT disease) ([facility]) BRONCHOSCOPY 06/30/2017 8:00 AM ESRD (end stage renal CDT disease) ([facility]) R & L CATH / CORONARY 02/23/2017 2:06 PM Q21.1 N18.6 ANGIOS / PCI MANUFACTURING FINANCE MANAGER Case Notes POP6 REQUESTING AM START TIME Special Needs REQUESTING AM START TIME after 08/09/2016 Results RHYTHM STRIP - SCAN (07/17/2017 11:10 AM)POC-Glucose meter (07/15/2017 11:54 AM) Only the most recent of75 resultswithin the time period is included. Component Value Ref Range POC-Glucose Meter 247 (H)Comment: TESTED AT [address] 70 - 110 mg/[place] [address] Specimen Performing Laboratory Blood [facility] [address] [address] XR chest 1 view portable / bedside [...] MD Report Verified Date/Time:07/15/2017 08:39:08 Reading Location: [facility] [id number] Ortho Consult Reading Room Procedure Note [...] Report Verified Date/Time: 07/15/2017 08:39:08 Reading Location: [facility] C013X Ortho Consult Reading Room with platelet [...] % Specimen Performing Laboratory Blood - Arm, [address] [address] aPTT (07/15/2017 5:48 AM)Only the most recent of16 resultswithin the time period is included. Component Value Ref Range PTT 40.2 (H) 22.5 - 36.0 seconds Specimen Performing Laboratory Blood - Arm, [address] [address] Prothrombin time/INR (07/15/2017 5:48 AM)Only the most recent of16 resultswithin the time period is included. Component Value Ref Range Protime 15.2 (H) 11.7 - 14.7 seconds INR 1.2 <=5.9 Specimen Performing Laboratory Blood - Arm, [address] [address] Narrative RECOMMENDED COUMADIN/WARFARIN INR THERAPY RANGES STANDARD [...] Status --------- ------ CBC with platelet count ...[[id number]]AbnormalFinal result Please view results for these tests on the individual orders. Phosphorus (07/15/2017 5:48 AM)Only the most recent of22 resultswithin the time period is included. Component Value Ref Range Phosphorus 3.2 2.3 - 4.7 mg/dL Specimen Performing Laboratory Blood - Arm, [address] [address] Magnesium (07/15/2017 5:48 AM)Only the most recent of21 resultswithin the time period is included. Component Value Ref Range Magnesium 2.1 1.6 - 2.6 mg/dL Specimen Performing Laboratory Blood - Arm, [address] [address] Basic Metabolic Panel (07/15/2017 5:48 AM)Only the [...] PATIENTS. Specimen Performing Laboratory Blood - Arm, [address] [address] Hemodialysis (07/14/2017 1:42 PM)Only the most recent [...] Platelet Conc Adequate Specimen [place] [address] Narrative Received comment: User comments: Slide comments: Protein, total (07/09/2017 4:30 AM) Component Value Ref Range Protein, Total 5.9 (L) 6.0 - 8.3 gm/dL Specimen Performing Laboratory Blood - Line, Arterial [address] [address] Prealbumin (07/09/2017 4:30 AM) Component Value Ref Range Prealbumin 12 (L) 14 - 45 mg/dL Specimen Performing Laboratory Blood - Line, Arterial [address] [address] Blood gas, arterial (07/09/2017 4:30 AM)Only the [...] Laboratory Blood, Arterial - Line, Arterial [facility] [address] [address] Albumin (07/09/2017 4:30 AM) Component Value Ref Range Albumin 2.6 (L) 3.5 - 5.0 g/dL Specimen Performing Laboratory Blood - Line, Arterial [address] [address] Urinalysis w/Microscopic + Reflex to Culture (07/05/2017 10:00 PM) Component Value Ref Range Color, UA Yellow Clarity, UA Hazy Specific Hurt, UA 1.016 1.001 - 1.035 pH, UA [...] Occasional Specimen Source Specimen Performing Laboratory Urine [address] [address] Blood culture (07/05/2017 12:09 PM) Component Value Ref Range Result No growth in 5 days Specimen Performing Laboratory Blood - Line, Arterial [address] [address] ECG 12 lead (07/05/2017 11:54 AM)Only the most recent of2 resultswithin the time period is included. Specimen Performing Laboratory GE MUSE Narrative Ventricular Rate 72 BPM Atrial Rate 72 BPM P-R Interval 174 ms QRS Duration 92 ms Q-T Interval 400 ms QTC Calculation(Bazett) 438 ms P [place] 75 degrees R [place] 74 degrees T [place] 117 degrees Normal sinus rhythm Nonspecific T wave abnormality Abnormal ECG When compared with ECG of 11-OCT-2016 10:45, Nonspecific T wave abnormality, worse in Inferior leads T wave inversion no longer evident in Lateral leads Confirmed by MD CARIDAD, CARLIE ([id number]) on 07/05/2017 3:12:57 PM Procedure Note Interface, External Ris In - 07/05/2017 3:13 PM CDT Ventricular Rate 72 BPM Atrial Rate 72 BPM P-R Interval 174 ms QRS Duration 92 ms Q-T Interval 400 ms QTC Calculation(Bazett) 438 ms P [place] 75 degrees R [place] 74 degrees T [place] 117 degrees Normal sinus rhythm Nonspecific T [...] Specimen Performing Laboratory Blood - Line, Arterial [address] [address] Narrative RECOMMENDED COUMADIN/WARFARIN INR THERAPY RANGES STANDARD [...] Specimen Performing Laboratory Blood - Line, Arterial [address] [address] Narrative Reference Range: No Normals Bronchial culture + gram stain (07/01/2017 2:23 PM) Component Value Ref Range Result 1+ Normal respiratory morelia present Gram Stain Result 1+ WBCs Gram Stain Result No organisms seen Specimen Performing Laboratory BAL - Lung, Left [address] [address] TRANSFUSION SERVICE REPORT - SCAN (06/30/2017 5:40 PM)Only the most recent of2 resultswithin the time period is included.Anaerobic culture (06/30/2017 1:36 PM )Only the most recent of8 resultswithin the time period is included. Component Value Ref Range Result No anaerobes isolated Specimen Performing Laboratory BAL - Lung, Right Lower Lobe [address] [address] Surgically obtained culture + gram stain (06/30/2017 1:36 PM)Only the most recent of8 resultswithin the time period is included. Component Value Ref Range Result 1+ Coagulase negative Staphylococcus (A) Gram Stain Result <1+ WBCs Gram Stain Result No organisms seen Specimen Performing Laboratory Tissue - Lung, Right Lower Lobe [address] [address] Organism Antibiotic Method Susceptibility Coagulase negative Clindamycin [...] Laboratory BAL - Lung, Right Lower Lobe [address] [address] Tissue Exam (06/30/2017 11:18 AM) Component Value Ref Range Case Report Surgical Pathology Report Case: [id number] Authorizing Provider:Guillermo Snow MD Collected: 06/30/2017 1118 Ordering Location: [address] Received: 07/03/2017 0751 Service Pathologist: Frantz Ruiz MD Specimens: A) - Lung, Left Lower Lobe, Left lower lobe peel B) - Lung, Left Upper Lobe, Left upper lobe peel DIAGNOSIS A. LUNG, LEFT LOWER LOBE, PLEURAL DECORTICATION: -ORGANIZING PLEURITIS -NEGATIVE FOR MALIGNANCY B.LUNG, LEFT LOWER LOBE, PLEURAL DECORTICATION: -ORGANIZING PLEURITIS -NEGATIVE FOR MALIGNANCY Signing Pathologist Direct Phone Line: [phone] CPT Code(s) 44770U4 CLINICAL HISTORY ILD pleural effusion SPECIMEN SOURCE [...] - Lung, Left Lower Lobe; Tissue - [facility] Lung, Left Upper Lobe [address] [place] [address] [facility] Critical Labs (ABG,NA,K,H&H,GLU) (06/30/2017 10:20 AM) Specimen Performing Laboratory Blood, Arterial Narrative The following orders were created for panel order [facility] Critical Labs (ABG,NA,K,H&H,GLU). Procedure Abnormality Status --------- ------ Blood gas, arterial[[id number]]AbnormalFinal result Sodium Na-Stat Lab[[id number]] AbnormalFinal result Potassium-Stat Lab[[id number]] NormalFinal result Glucose-Stat Lab[[id number]] AbnormalFinal result HGB/HCT (H&H)-Stat Lab[[id number]] Abnormal Final result Please view results for these tests on the individual orders. Potassium-Stat Lab (06/30/2017 10:20 AM) Component Value Ref Range Potassium 4.5 3.6 - 5.5 meq/L Specimen Performing Laboratory Blood, Arterial [address] [address] Sodium Na-Stat Lab (06/30/2017 10:20 AM) Component Value Ref Range Sodium 134 (L) 135 - 148 meq/L Specimen Performing Laboratory Blood, Arterial [address] [address] Glucose-Stat Lab (06/30/2017 10:20 AM) Component Value Ref Range Glucose 193 (H) 70 - 110 mg/dL Specimen Performing Laboratory Blood, Arterial [address] [address] HGB/HCT (H&H)-Stat Lab (06/30/2017 10:20 AM) Component Value Ref Range Hemoglobin 9.8 (L) 13.0 - 16.8 g/dL Hematocrit 29.0 (L) 40.0 - 50.0 % Specimen Performing Laboratory Blood, Arterial [address] [address] Type and screen, automated (06/29/2017 9:29 AM)Only the most recent of2 resultswithin the time period is included. Component Value Ref Range Ab Scrn NEGATIVEComment: Echo2 Specimen Performing Laboratory Blood [address] [address] ABORH, manual (06/29/2017 9:29 AM) Component Value Ref Range ABO Grouping AComment: pre-warm reverse Rh Factor POS Specimen Performing Laboratory Blood [address] [address] Histoplasma antigen, urine (06/28/2017 7:09 PM) Component [...] analytical performance characteristics have been determined by [facility]. It has not been cleared or approved by the U.S. Food and Drug Administration.The FDA has determined that such clearance or approval is not necessary. This assay has been validated pursuant to the CLIA regulations andis used for clinical purposes. Specimen Performing Laboratory Urine - Urine, Voided [facility] [address] [place] [address] Narrative Performing Lab *QDID [facility] [address] [place] [address] Kimberly Elliott MD pH, body fluid (06/28/2017 6:23 PM) Component Value Ref Range pH, Body Fluid 9.00 Specimen Performing Laboratory Body Fluid - Pleural, Left [address] [address] Glucose, body fluid (06/28/2017 6:23 PM) Component Value Ref Range Glucose, Body Fluid 108 70 - 110 mg/dL Specimen Performing Laboratory Body Fluid - Pleural, Left [address] [address] Narrative Absence of reference range indicates that [...] of this test have been [place]This test should not be used for diagnosis without confirmation by other medically established means. Specimen Performing Laboratory Body Fluid - Pleural, Left [facility] [address] [place] [address] Narrative Performing Lab [address] [facility], [address] [facility] [place], [place] John Avalos MD, PhD Body fluid culture + gram stain (06/28/2017 6:23 PM) Component Value Ref Range Result No growth Gram Stain Result No White blood cells seen Gram Stain Result No organisms seen Specimen Performing Laboratory Body Fluid - Pleural, Left [address] [address] Body fluid cell count with differential (06/28/2017 6:23 PM) Component Value Ref Range Appearance Bloody (A) Clear Color Red (A) Colorless, Straw RBCs [address] (H) <=1 /cu mm Adjusted WBC Count 255 (H) <=5 /cu mm Lining Cells 0 <=1 /cu mm % Segs 5 % % Lymphs 91 % % Monos 1 % % Eos 2 % % Baso 1 % Container Body Fluid EDTA Tube Specimen Performing Laboratory Body Fluid - Pleural, Left [address] [address] Protein, body fluid (06/28/2017 6:23 PM) Component Value Ref Range Protein, Fluid 1.5 Light's criteria identifies effusions if one or more are present: Pleural to serum protein ratio of more than 0.5; Pleural to Serum LDH of more than 0.6; Pleural LDH of more than two third of upper serum reference limit g/dL Specimen Performing Laboratory Body Fluid - Pleural, Left [address] [address] Narrative Absence of reference range indicates that [...] Performing Laboratory Body Fluid - Pleural, Left [address] [address] Narrative Absence of reference range indicates that normals have not been defined. Assay performance has not been validated for this type of specimen. Hepatitis B surface antigen (06/28/2017 9:56 AM)Only the most recent of3 resultswithin the time period is included. Component Value Ref Range hepatitis B Surface Ag Nonreactive Nonreactive Specimen Performing Laboratory Blood [address] [address] Potassium (06/28/2017 6:21 AM) Component Value Ref Range Potassium 5.9 (H) 3.5 - 5.1 meq/L Specimen Performing Laboratory Blood - Arm, Right [address] [address] T Spot TB (06/28/2017 4:44 AM)Only the most recent of3 resultswithin the time period is included. Component Value Ref Range T-Spot TB Negative Neg Ctrl Spot Count 0 Panel A Spot 0 Panel B Spot [address] 0 Scan Result Specimen Performing Laboratory Blood [facility] [address] [facility], [address] [place] [address] Coccidioides antibodies (06/28/2017 4:44 AM) Component Value [...] 1 year thereafter. Specimen Performing Laboratory Blood [facility] [address] [address] Narrative Performing Lab *QDID [facility] [address] [place] [address] Kimberly Elliott MD Brucella abortus antibodies (IgG, [...] analytical performance characteristics have been determined by [facility]. It has not been cleared or approved by the U.S. Food and Drug Administration.The FDA has determined that such clearance or approval is not necessary. This assay has been validated pursuant to the CLIA regulations and is used for clinical purposes. Specimen Performing Laboratory Blood [facility] [address] [place] [address] Narrative Performing Lab *QDID [facility] [address] [place] [address] chest without IV contrast (06/27/2017 10:08 PM) Specimen Performing Laboratory Right Skills Narrative FINAL REPORT CT scan of the [...] MD Report Verified Date/Time:06/27/2017 22:28:12 Reading Location: [address] Consult Reading Room Procedure Note Interface, [...] Report Verified Date/Time: 06/27/2017 22:28:12 Reading Location: [address] Consult Reading Room Iron, TIBC, % sat. (without ferritin) (06/27/2017 4:23 AM) Component Value Ref Range Iron 35 (L) 40 - 160 ug/dL TIBC 121 (L) 250 - 450 ug/dL Iron % Saturation 29 20 - 55 % Specimen Performing Laboratory Blood - Arm, [address] [address] Vitamin D, 25-Hydroxy (06/27/2017 4:23 AM) Component Value Ref Range Vitamin D 25-Hydroxy 15.7 6.6 - 49.9 ng/mL Specimen Performing Laboratory Blood - Arm, [address] [address] Narrative Effective 11/15/2016: Reference Range Change New: 6.6-49.9 ng/mL Previous: 13.0-47.8 ng/mL Recommended Vitamin D Target Range: 30.0-40.0 ng/mL PTH, intact (06/27/2017 4:23 AM)Only the most recent of3 resultswithin the time period is included. Component Value Ref Range PTH 330.0 (H) 8.5 - 72.5 pg/mL Specimen Performing Laboratory Blood - Arm, [address] [address] Hemoglobin A1c (06/27/2017 4:23 AM)Only the most recent of3 resultswithin the time period is included. Component Value Ref Range Hemoglobin A1C 7.0 (H) 4.3 - 6.1 % Specimen Performing Laboratory Blood - Arm, [address] [address] Ferritin (06/27/2017 4:23 AM) Component Value Ref Range Ferritin 1317 (H) 5 - 275 ng/mL Specimen Performing Laboratory Blood - Arm, [address] [address] CARDIAC CATH REPORT - SCAN (03/02/2017 9:22 PM)TSH (02/23/2017 8:48 AM) Component Value Ref Range TSH 3.60 0.35 - 4.94 uIU/mL Specimen Performing Laboratory [address] [address] B-type Natriuretic Factor (BNP) (02/23/2017 8:48 AM) Component Value Ref Range BNP 875 (H) 0 - 100 pg/mL Specimen Performing Laboratory Blood [address] [address] Hepatic function panel (02/23/2017 8:48 AM) Component Value Ref Range Protein, Total 7.8 6.0 - 8.3 gm/dL Albumin 3.9 3.5 - 5.0 g/dL Total Bilirubin 0.6 0.2 - 1.2 mg/dL Bilirubin, Direct 0.2 0.1 - 0.5 mg/dL Alkaline Phosphatase 112 40 - 150 U/L AST 12 5 - 34 U/L ALT 8 6 - 55 U/L Specimen Performing Laboratory Blood [address] [address] Lipid panel (02/23/2017 8:48 AM)Only the most recent of2 resultswithin the time period is included. Component Value Ref Range Triglycerides 102 mg/dL Cholesterol 166 mg/dL HDL 55 mg/dL LDL Calculated 91 mg/dL Specimen Performing Laboratory Blood [address] [address] Narrative Triglyceride Reference Range: Low Risk <150 [id number] High Risk 200-499 Very High Risk>=500 Cholesterol Reference Range: Low Risk <200 [id number] High Risk>240 HDL Cholesterol Reference Range: Low Risk >=60 High Risk <40 LDL Cholesterol Reference Range: Optimal<100 Near [id number] [id number] [id number] Very High >=190 ECHOCARDIOGRAM REPORT - SCAN (01/11/2017 5:10 PM)Only the most recent of2 resultswithin the time period is included.Transesophageal echo (01/11/2017 11: 00 AM) Component Value Ref Range Ejection Fraction Specimen Performing Laboratory [facility] ECHO [facility]ART[facility] Narrative Transesophageal Echocardiography Report (ROSIE) Demographics Patient Name JAH BARRERA Date of Study 01/11/2017 ASHLEY [id number] GenderMale Visit Number [id number] [id number] [id number] Number OP Number Date of Birth1975 Referring Physician Nicole Howard MD Age41 year(s) Anchor Operator Sebastián Blake, Physician MD Arnold Man MD [...] External Ris In - 01/11/2017 4:09 PM MANUFACTURING FINANCE MANAGER Transesophageal Echocardiography Report (ROSIE) Demographics Patient Name JAH BARRERA Date of Study 01/11/2017 ASHLEY Gender Male Visit Number [id number] Race Unknown Room Number OP Number Date of 1975 Referring Physician Nicole Howard MD Age 41 year(s) Anchor Operator Sebastián Llanes Interpreting Jaspreet Blake Physician MD [...] Component Value Ref Range Date of Serum 740087 Serum# [id number] Flow PRA Class I and II See Scanned Report Specimen Performing Laboratory Blood [facility] IMMUNE EVALUATION LAB [facility] María [facility] Maryann, MS:BCM [address] [place] [address] HLA Typing (11/17/2016 12:00 PM) Component Value Ref Range HLA Result See Scanned Report HLA-A AG1 HLA-A AG2 HLA-B AG1 HLA-B AG2 HLA-C AG1 HLA-C AG2 HLA-DR AG1 HLA-DR 2nd Antigen HLA-DQ AG1 HLA-DQ AG2 HLA-DRW Specimen Performing Laboratory Blood [facility] IMMUNE EVALUATION LAB [facility] One Solodina Wolf, MS:BCM [address] [place] [address] Urinalysis, Routine (11/17/2016 9:28 AM)Only the most recent of2 resultswithin the time period is included. Component Value Ref Range Color, UA Yellow Clarity, UA Clear Specific Hurt, UA 1.017 1.001 - 1.035 pH, UA [...] /LPF Specimen Source Specimen Performing Laboratory Urine [address] [address] Urine Culture (11/17/2016 9:28 AM)Only the most recent of2 resultswithin the time period is included. Component Value Ref Range Result No growth Specimen Performing Laboratory Urine - Urine, Unspecified Source [address] [address] Uric Acid (11/17/2016 9:28 AM)Only the most recent of2 resultswithin the time period is included. Component Value Ref Range Uric Acid 3.8 2.6 - 7.2 mg/dL Specimen Performing Laboratory Blood [address] [address] Lactate Dehydrogenase (LDH) (11/17/2016 9:28 AM)Only the most recent of2 resultswithin the time period is included. Component Value Ref Range LDH 252 (H) 125 - 220 U/L Specimen Performing Laboratory Blood [address] [address] Gamma Glutamyl Transferase (GGT) (11/17/2016 9:28 AM)Only the most recent of2 resultswithin the time period is included. Component Value Ref Range GGT 32 9 - 64 U/L Specimen Performing Laboratory Blood [address] [address] Comprehensive metabolic panel (11/17/2016 9:28 AM)Only the [...] FOR DIALYSIS PATIENTS. Specimen Performing Laboratory Blood [address] [address] HIV-1 Antigen with HIV-1/2 Antibody (11/17/2016 9:27 AM)Only the most recent of2 resultswithin the time period is included. Component Value Ref Range HIV-1 Antigen with HIV 1&2 Antibody Nonreactive Nonreactive Specimen Performing Laboratory Blood [address] [address] Hepatitis C Antibody (11/17/2016 9:27 AM)Only the most recent of2 resultswithin the time period is included. Component Value Ref Range Hepatitis C Ab Nonreactive Nonreactive Specimen Performing Laboratory Blood [address] [address] Cytomegalovirus antibody, IgM (11/17/2016 9:27 AM)Only the most recent of2 resultswithin the time period is included. Component Value Ref Range CMV IgM Negative Specimen Performing Laboratory Blood [address] [address] Hepatitis B core antibody, IgM (11/17/2016 9:27 AM)Only the most recent of2 resultswithin the time period is included. Component Value Ref Range Hep B C IgM Nonreactive Nonreactive Specimen Performing Laboratory Blood [address] [address] EBV-VCA antibody, IgM (11/17/2016 9:27 AM)Only the most recent of2 resultswithin the time period is included. Component Value Ref Range EBV VCA IgM Negative Specimen Performing Laboratory Blood [address] [address] EBV-VCA antibody, IgG (11/17/2016 9:27 AM)Only the most recent of2 resultswithin the time period is included. Component Value Ref Range EBV VCA IgG Positive Specimen Performing Laboratory Blood [address] [address] RPR (11/17/2016 9:27 AM)Only the most recent of2 resultswithin the time period is included. Component Value Ref Range RPR Nonreactive Nonreactive Specimen Performing Laboratory Blood [address] [address] Hepatitis B surface antibody (11/17/2016 9:27 AM)Only the most recent of2 resultswithin the time period is included. Component Value Ref Range Hep B S Ab 78.1 (H) <8.0 mIU/mL Specimen Performing Laboratory Blood [address] [address] Cytomegalovirus antibody, IgG (11/17/2016 9:27 AM)Only the most recent of2 resultswithin the time period is included. Component Value Ref Range CMV IgG Negative Specimen Performing Laboratory Blood [address] [address] Varicella Zoster Antibody, IgG (11/17/2016 9:27 AM)Only the most recent of2 resultswithin the time period is included. Component Value Ref Range Varicella IgG 3.0 Al Specimen Performing Laboratory Blood [address] [address] Narrative VARICELLA ZOSTER RESULT INTERPRETATIONS: <=0.8 AlNonreactive:Presumed non-immune to VZV 0.9-1.0 AlEquivocal >=1.1 AlReactive:Presumed immune to VZV Blood typing, automated (11/17/2016 9:26 AM) Component Value Ref Range ABO/RH AUTOMATED (BEAKER) A POSITIVE Specimen Performing Laboratory Blood [address] [address] Direct AHG (VARGHESE)/Direct Alexus (11/17/2016 9:26 AM)Only the most recent of2 resultswithin the time period is included. Component Value Ref Range Direct AHG-IGG NEGATIVEComment: Saline Control-neg Direct AHG-C3B, C3D NEGATVIE Specimen Performing Laboratory Blood [address] [address] Occult blood, stool (10/31/2016 3:00 PM)Only the most recent of2 resultswithin the time period is included. Component Value Ref Range Occult blood Negative Negative Specimen Performing Laboratory Stool [address] [address] [place] Cystogram Cine or Video Voiding (10/11/2016 [...] MD Report Verified Date/Time:10/11/2016 13:04:21 Reading Location: [address] Ortho Consult Reading Room Procedure Note [...] Report Verified Date/Time: 10/11/2016 13:04:21 Reading Location: [facility] C0[facility] Ortho Consult Reading Room myocardial perfusion PET (rest and stress) (10/11/2016 10:39 AM) Specimen Performing Laboratory [facility] FINAL REPORT PROCEDURE: Rest/Stress MYOCARDIAL PERFUSION PET with regadenoson\\XA9\\ CPT CODE: 25442 INDICATION: End-stage renal disease, preoperative evaluation for [...] stress.5. Normal extracardiac tracer distribution.6. No previous [facility] study for comparison. NONINVASIVE RISK STRATIFICATION: The above findings are considered low risk (<1% annual mortality rate) based on the following criterion: - Normal or small myocardial perfusion defect at rest or with stress (JACC. 2012;59(9):857-33.) Signed: Nicolas Kimble MD Report Verified Date/Time:10/11/2016 14:10:21 Reading Location: [address] Reading Room Procedure Note Interface, External Ris In - 10/16/2016 6:37 PM CDT FINAL REPORT PROCEDURE: Rest/Stress MYOCARDIAL PERFUSION PET with regadenoson\\XA9\\ CPT CODE: 82272 INDICATION: End-stage renal disease, preoperative evaluation for [...] Normal extracardiac tracer distribution. 6. No previous [facility] study for comparison. NONINVASIVE RISK STRATIFICATION: The above findings are considered low risk (<1% annual mortality rate) based on the following criterion: - Normal or small myocardial perfusion defect at rest or with stress (JACC. 2012;59(9):857-81.) Signed: Nicolas Kimble MD Report Verified Date/Time: 10/11/2016 14:10:21 Reading Location: [address] [id number] [facility] Reading Room Treadmill tolerance(Non-Nuclear Treadmill) (10/11/2016 10:23 AM) Specimen Performing Laboratory Epuls Narrative Protocol Name Regadenoson Time In Exercise [...] COREG CARDUA Confirmed by fellow Bill Bear ([id number]) on 10/11/2016 10:51:59 AM Confirmed by Herber [...] COREG CARDUA Confirmed by fellow Bill Bear ([id number]) on 10/11/2016 10:51:59 AM Confirmed by Herber MARY MICHAEL ([id number]) on 10/12/2016 7:42:39 AM 2D Echo W/Doppler(CW/PW/Color) (10/11/2016 7:59 AM) Component Value Ref Range Ejection Fraction Specimen Performing Laboratory [facility] ECHO HEARTLAB MKCKESSON CPACS Narrative Transthoracic Echocardiography Report (TTE) Demographics Patient NameJAH BARRERA Date of Study10/11/2016 SAHLEY Gender Male Visit [id number] Race Unknown Number Number Date of 1975 Referring Nikhil Guzman Physician Age 41 year(s) Anchor Operator Jac Carbone RCS Interpreting [facility] Needs to be Pre Physician [...] Study 10/11/2016 ASHLEY Gender Male Visit Number [id number] Race Unknown Room Number Number Date of 1975 Referring Nikhil Guzman Physician Age 41 year(s) Anchor Operator Jac ALFONSO Interpreting [facility] Needs to be [...] MD Report Verified Date/Time:08/16/2016 16:26:06 Reading Location: [address] Radiology Reading Room Procedure Note Interface, [...] Report Verified Date/Time: 08/16/2016 16:26:06 Reading Location: [address] Radiology Reading Room abdomen complete (08/16/2016 [...] MD Report Verified Date/Time:08/16/2016 15:24:57 Reading Location: [address] Radiology Reading Room Procedure Note Interface, [...] Report Verified Date/Time: 08/16/2016 15:24:57 Reading Location: [address] Radiology Reading Room chest 2 views [...] MD Report Verified Date/Time:08/16/2016 14:04:47 Reading Location: [address] Radiology Reading Room Procedure Note Interface, [...] Report Verified Date/Time: 08/16/2016 14:04:47 Reading Location: [address] Radiology Reading Room after 08/09/2016
--- OUTSIDE RECORDS SUMMARY | 2017-08-10 18:21 | XMS REPORT ---
:1975 [facility] Address [address] [place] [address] Dr. Flanagan [address] [place] [id number] Care Team Providers Name Role Phone JOHNSON [...] Value Reference Range Comments CULTURE (BEAKER) (test tmwj=6656) No fungus isolated in 28 days FUNGUS SMEAR (BEAKER) (test fkmn=5864) No fungi seen FUNGUS CULTURE + [id number] 16:40:00 Test Item Value Reference Range Comments CULTURE (BEAKER) (test No fungus isolated in 28 days lhbr=0342) FUNGUS SMEAR (BEAKER) (test No fungi seen cmpx=2250) FUNGUS CULTURE + [id number] 16:40:00 Test Item Value Reference Range Comments CULTURE (BEAKER) (test No fungus isolated in 28 days edtp=5874) FUNGUS SMEAR (BEAKER) (test No fungi seen nqnv=8098) FUNGUS CULTURE + [id number] 16:40:00 Test Item Value Reference Range Comments CULTURE (BEAKER) (test No fungus isolated in 28 days pdjw=0111) FUNGUS SMEAR (BEAKER) (test No fungi seen sgrq=7207) FUNGUS CULTURE + [id number] 16:40:00 Test Item Value Reference Range Comments CULTURE (BEAKER) (test No fungus isolated in 28 days hrms=6632) FUNGUS SMEAR (BEAKER) (test No fungi seen gdlb=6674) FUNGUS CULTURE + [id number] 16:40:00 Test Item Value Reference Range Comments CULTURE (BEAKER) (test No fungus isolated in 28 days gxtv=4915) FUNGUS SMEAR (BEAKER) (test No fungi seen vlnq=1421) FUNGUS CULTURE + [id number] 16:40:00 Test Item Value Reference Range Comments CULTURE (BEAKER) (test No fungus isolated in 28 days fbzj=2100) FUNGUS SMEAR (BEAKER) (test No fungi seen mkrk=4380) FUNGUS CULTURE + [id number] 16:40:00 Test Item Value Reference Range Comments CULTURE (BEAKER) (test No fungus isolated in 28 days gmhf=3155) FUNGUS SMEAR (BEAKER) (test No fungi seen bntr=8795) POCT-GLUCOSE [id number] 11:56:00 Test Item Value Reference Range Comments POC-GLUCOSE METER (BEAKER) 247 mg/dL 70-110 TESTED AT [address] (test qwrf=3035) [place] [address] RAD, CHEST, 1 VIEW, NON [id number] 08:39:00Reason for exam:->s/p decorticationShould this be performed [...] MDReport Verified Date/Time: 07/15/2017 08:39:08 Reading Location: [facility] C013X Ortho Consult Reading Room Electronically signed by: MERVIN CAMPBELL M.D. on 11/2017 08:39 AMPOCT-GLUCOSE [id number] 07:09:00 Test Item Value Reference Range Comments POC-GLUCOSE METER (BEAKER) 271 mg/dL 70-110 TESTED AT [address] (test hpts=3269) [place] [address] BASIC METABOLIC [id number] 06:41:00 Test Item Value Reference Range Comments SODIUM (BEAKER) (test 132 meq/L 136-145 zrhh=365) POTASSIUM (BEAKER) (test 4.8 meq/L 3.5-5.1 wcnm=758) CHLORIDE (BEAKER) (test 94 meq/L 98-107 rjvu=460) CO2 (BEAKER) (test 28 meq/L 22-29 fmdm=808) BLOOD UREA NITROGEN 25 mg/dL 7-21 (BEAKER) (test dhwe=582) CREATININE (BEAKER) (test 3.94 mg/dL 0.57-1.25 asyo=388) GLUCOSE RANDOM (BEAKER) 267 mg/dL 70-105 (test ncdj=242) CALCIUM (BEAKER) (test 9.3 mg/dL 8.4-10.2 apcx=309) EGFR (BEAKER) (test 17 mL/min/1.73 sq m ESTIMATED GFR IS NOT qgsq=0045) ACCURATE CREATININE CLEARANCE IN PREDICTING GLOMERULAR FILTRATION RATE. ESTIMATED GFR IS NOT APPLICABLE FOR DIALYSIS PATIENTS. [id number] 06:39:00 Test Item Value Reference Range Comments PHOSPHORUS (BEAKER) (test xxkk=146) 3.2 mg/dL 2.3-4.7 [id number] 06:39:00 Test Item Value Reference Range Comments MAGNESIUM (BEAKER) (test qbpo=632) 2.1 mg/dL 1.6-2.6 CBC W/PLT COUNT & AUTO [id number] 06:30:00 Test Item Value Reference Range Comments WHITE BLOOD CELL COUNT (BEAKER) (test ynjj=679) 14.5 K/ L 3.5-10.5 RED BLOOD CELL COUNT (BEAKER) (test fjyt=653) 3.41 M/ L 4.63-6.08 HEMOGLOBIN (BEAKER) (test rmby=037) 9.2 GM/DL 13.7-17.5 HEMATOCRIT (BEAKER) (test rjki=988) 31.3 % 40.1-51.0 MEAN CORPUSCULAR VOLUME (BEAKER) (test ggcy=210) 91.8 fL 79.0-92.2 MEAN CORPUSCULAR HEMOGLOBIN (BEAKER) (test 27.0 pg 25.7-32.2 ybzh=890) MEAN CORPUSCULAR HEMOGLOBIN CONC (BEAKER) (test 29.4 GM/DL 32.3-36.5 weyh=032) RED CELL DISTRIBUTION WIDTH (BEAKER) (test 19.3 % 11.6-14.4 ulye=813) PLATELET COUNT (BEAKER) (test eezs=499) 351 K/CU MM 150-450 MEAN PLATELET VOLUME (BEAKER) (test mqgs=444) 11.4 fL 9.4-12.4 NUCLEATED RED BLOOD CELLS (BEAKER) (test 0 /100 WBC 0-0 apxf=292) NEUTROPHILS RELATIVE PERCENT (BEAKER) (test 79 % sbts=383) LYMPHOCYTES RELATIVE PERCENT (BEAKER) (test 7 % zuym=904) MONOCYTES RELATIVE PERCENT (BEAKER) (test 10 % bweg=681) EOSINOPHILS RELATIVE PERCENT (BEAKER) (test 3 % owth=747) BASOPHILS RELATIVE PERCENT (BEAKER) (test 1 % ipft=135) NEUTROPHILS ABSOLUTE COUNT (BEAKER) (test 11.45 K/ L 1.78-5.38 fyuv=567) LYMPHOCYTES ABSOLUTE COUNT (BEAKER) (test 0.99 K/ L 1.32-3.57 zohb=709) MONOCYTES ABSOLUTE COUNT (BEAKER) (test 1.44 K/ L 0.30-0.82 imbq=672) EOSINOPHILS ABSOLUTE COUNT (BEAKER) (test 0.41 K/ L 0.04-0.54 xjap=119) BASOPHILS ABSOLUTE COUNT (BEAKER) (test 0.09 K/ L 0.01-0.08 yzbb=891) IMMATURE GRANULOCYTES-RELATIVE PERCENT (BEAKER) 1 % 0-1 (test ljmb=2227) [id number] 06:27:00 Test Item Value Reference Range Comments PARTIAL THROMBOPLASTIN TIME (BEAKER) (test 40.2 seconds 22.5-36.0 yejc=475) PROTHROMBIN [id number] 06:26:00 Test Item Value Reference Range Comments PROTIME (BEAKER) (test isec=725) 15.2 seconds 11.7-14.7 INR (BEAKER) (test igmb=761) 1.2 <=5.9 RECOMMENDED COUMADIN/WARFARIN INR THERAPY RANGESSTANDARD DOSE: 2.0 - 3.0 Includes: PROPHYLAXIS forvenous thrombosis, systemic embolization; TREATMENT for venous thrombosis and/or pulmonary embolus.HIGH RISK: Target INR is 2.5-3.5 for patients with mechanical heart valves.POCT-GLUCOSE [id number] 21:34:00 Test Item Value Reference Range Comments POC-GLUCOSE METER (BEAKER) 298 mg/dL 70-110 TESTED AT [address] (test tkae=5543) [place] [id number] POCT-GLUCOSE [id number] 17:38:00 Test Item Value Reference Range Comments POC-GLUCOSE METER (BEAKER) 274 mg/dL 70-110 TESTED AT [address] (test ppkx=6120) [place] [address] POCT-GLUCOSE [id number] 11:32:00 Test Item Value Reference Range Comments POC-GLUCOSE METER (BEAKER) 143 mg/dL 70-110 TESTED AT [address] (test kewj=1918) [place] [address] CBC W/PLT COUNT & AUTO [id number] 10:24:00 Test Item Value Reference Range Comments WHITE BLOOD CELL COUNT (BEAKER) (test vhlc=862) 16.9 K/ L 3.5-10.5 RED BLOOD CELL COUNT (BEAKER) (test tysc=882) 3.27 M/ L 4.63-6.08 HEMOGLOBIN (BEAKER) (test udup=325) 8.8 GM/DL 13.7-17.5 HEMATOCRIT (BEAKER) (test fsre=165) 29.5 % 40.1-51.0 MEAN CORPUSCULAR VOLUME (BEAKER) (test jkvu=492) 90.2 fL 79.0-92.2 MEAN CORPUSCULAR HEMOGLOBIN (BEAKER) (test 26.9 pg 25.7-32.2 hjmm=601) MEAN CORPUSCULAR HEMOGLOBIN CONC (BEAKER) (test 29.8 GM/DL 32.3-36.5 ivgp=033) RED CELL DISTRIBUTION WIDTH (BEAKER) (test 19.5 % 11.6-14.4 qwer=389) PLATELET COUNT (BEAKER) (test ranc=664) 360 K/CU MM 150-450 MEAN PLATELET VOLUME (BEAKER) (test kzpp=521) 11.6 fL 9.4-12.4 NUCLEATED RED BLOOD CELLS (BEAKER) (test 0 /100 WBC 0-0 lfhr=695) (CELLAVISION MANUAL DIFF)2017-07-14 10:24:00 Test Item Value Reference Range Comments NEUTROPHILS - REL (CELLAVISION)(BEAKER) (test 83 % czbv=4141) LYMPHOCYTES - REL (CELLAVISION)(BEAKER) (test 10 % btjo=7464) MONOCYTES - REL (CELLAVISION)(BEAKER) (test 1 % nbjf=9349) EOSINOPHILS - REL (CELLAVISION)(BEAKER) (test 6 % ocmw=9536) NEUTROPHILS - ABS (CELLAVISION)(BEAKER) (test 14.03 K/ul 1.78-5.38 uznp=5231) LYMPHOCYTES - ABS (CELLAVISION)(BEAKER) (test 1.69 K/ul 1.32-3.57 nbue=0911) MONOCYTES - ABS (CELLAVISION)(BEAKER) (test 0.17 K/uL 0.30-0.82 bvnp=3576) EOSINOPHILS - ABS (CELLAVISION)(BEAKER) (test 1.01 K/uL 0.04-0.54 civd=8815) TOTAL COUNTED (BEAKER) (test thsj=1999) 100 WBC MORPHOLOGY (BEAKER) (test pcpo=808) Normal PLT MORPHOLOGY (BEAKER) (test cwbb=584) Normal POLYCHROMATOPHILLIC RBCS(BEAKER) (test dqai=538) 1+ few ANISOCYTOSIS (BEAKER) (test zyff=221) 1+ few POIKILOCYTES (BEAKER) (test mruk=876) 1+ few ARTIFACT (CELLAVISION)(BEAKER) (test fqlz=7502) Present PLATELET CONCENTRATION (CELLAVISION)(BEAKER) Adequate (test nojh=8217) Received comment: User comments: Slide comments:[id number] 10:05:00 Test Item Value Reference Range Comments PARTIAL THROMBOPLASTIN TIME (BEAKER) (test 42.3 seconds 22.5-36.0 fipe=058) PROTHROMBIN [id number] 10:04:00 Test Item Value Reference Range Comments PROTIME (BEAKER) (test sqzj=118) 14.9 seconds 11.7-14.7 INR (BEAKER) (test xcay=488) 1.2 <=5.9 RECOMMENDED COUMADIN/WARFARIN INR THERAPY RANGESSTANDARD DOSE: 2.0 - 3.0 Includes: PROPHYLAXIS forvenous thrombosis, systemic embolization; TREATMENT for venous thrombosis and/or pulmonary embolus.HIGH RISK: Target INR is 2.5-3.5 for patients with mechanical heart valves.BASIC METABOLIC [id number] 10:01: 00 Test Item Value Reference Range Comments SODIUM (BEAKER) (test 134 meq/L 136-145 spfm=641) POTASSIUM (BEAKER) (test 4.8 meq/L 3.5-5.1 bine=076) CHLORIDE (BEAKER) (test 97 meq/L 98-107 tdwd=182) CO2 (BEAKER) (test 25 meq/L 22-29 sdzk=764) BLOOD UREA NITROGEN 40 mg/dL 7-21 (BEAKER) (test lwcw=602) CREATININE (BEAKER) (test 5.79 mg/dL 0.57-1.25 sbhw=876) GLUCOSE RANDOM (BEAKER) 156 mg/dL 70-105 (test lpxf=080) CALCIUM (BEAKER) (test 9.0 mg/dL 8.4-10.2 obiw=281) EGFR (BEAKER) (test 11 mL/min/1.73 sq m ESTIMATED GFR IS NOT yxda=5904) ACCURATE CREATININE CLEARANCE IN PREDICTING GLOMERULAR FILTRATION RATE. ESTIMATED GFR IS NOT APPLICABLE FOR DIALYSIS PATIENTS. [id number] 09:54:00 Test Item Value Reference Range Comments PHOSPHORUS (BEAKER) (test golw=745) 2.7 mg/dL 2.3-4.7 [id number] 09:54:00 Test Item Value Reference Range Comments MAGNESIUM (BEAKER) (test udht=350) 2.1 mg/dL 1.6-2.6 RAD, CHEST, 1 VIEW, NON [id number] 08:55:00Reason for exam:->s/p decorticationShould this be performed [...] MDReport Verified Date/Time: 07/14/2017 08:55:58 Reading Location: [facility] C013T Transitional Reading Room POCT-GLUCOSE [id number] 06:57:00 Test Item Value Reference Range Comments POC-GLUCOSE METER (BEAKER) 192 mg/dL 70-110 TESTED AT [address] (test hrsi=6299) [place] [address] POCT-GLUCOSE [id number] 20:47:00 Test Item Value Reference Range Comments POC-GLUCOSE METER (BEAKER) 210 mg/dL 70-110 TESTED AT [address] (test rfvt=3660) [place] [address] POCT-GLUCOSE [id number] 17:02:00 Test Item Value Reference Range Comments POC-GLUCOSE METER (BEAKER) 174 mg/dL 70-110 TESTED AT [address] (test sarv=1692) [facility] [address] RAD, CHEST, 1 VIEW, NON [id number] 16:29:00Reason for exam:->s/p right chest tube removalReason [...] MDReport Verified Date/Time: 07/13/2017 16:29:39 Reading Location: [facility] C013W Consult Reading Room POCT-GLUCOSE [id number] 11:30:00 Test Item Value Reference Range Comments POC-GLUCOSE METER (BEAKER) 221 mg/dL 70-110 TESTED AT [facility] [address] (test zkjd=9061) [facility] [address] CBC W/PLT COUNT & AUTO [id number] 10:16:00 Test Item Value Reference Range Comments WHITE BLOOD CELL COUNT (BEAKER) (test copt=573) 15.0 K/ L 3.5-10.5 RED BLOOD CELL COUNT (BEAKER) (test agkt=431) 3.46 M/ L 4.63-6.08 HEMOGLOBIN (BEAKER) (test uuls=765) 9.5 GM/DL 13.7-17.5 HEMATOCRIT (BEAKER) (test hwdd=162) 31.6 % 40.1-51.0 MEAN CORPUSCULAR VOLUME (BEAKER) (test lncf=576) 91.3 fL 79.0-92.2 MEAN CORPUSCULAR HEMOGLOBIN (BEAKER) (test 27.5 pg 25.7-32.2 iqoc=327) MEAN CORPUSCULAR HEMOGLOBIN CONC (BEAKER) (test 30.1 GM/DL 32.3-36.5 owpc=560) RED CELL DISTRIBUTION WIDTH (BEAKER) (test 19.9 % 11.6-14.4 qohk=524) PLATELET COUNT (BEAKER) (test fzkm=845) 272 K/CU MM 150-450 MEAN PLATELET VOLUME (BEAKER) (test isyx=062) 11.1 fL 9.4-12.4 NUCLEATED RED BLOOD CELLS (BEAKER) (test 0 /100 WBC 0-0 wqvv=993) (CELLAVISION MANUAL DIFF)2017-07-13 10:16:00 Test Item Value Reference Range Comments NEUTROPHILS - REL (CELLAVISION)(BEAKER) (test 74 % drjd=0098) LYMPHOCYTES - REL (CELLAVISION)(BEAKER) (test 6 % gpgu=9348) MONOCYTES - REL (CELLAVISION)(BEAKER) (test 12 % gelw=8570) EOSINOPHILS - REL (CELLAVISION)(BEAKER) (test 6 % eows=3258) BASOPHILS - REL (CELLAVISION)(BEAKER) (test 1 % eelr=5731) BANDS - REL (CELLAVISION)(BEAKER) (test 1 % 0-10 rvxx=3670) NEUTROPHILS - ABS (CELLAVISION)(BEAKER) (test 11.10 K/ul 1.78-5.38 igtz=8679) LYMPHOCYTES - ABS (CELLAVISION)(BEAKER) (test 0.90 K/ul 1.32-3.57 ddsd=6267) MONOCYTES - ABS (CELLAVISION)(BEAKER) (test 1.80 K/uL 0.30-0.82 xghv=2362) EOSINOPHILS - ABS (CELLAVISION)(BEAKER) (test 0.90 K/uL 0.04-0.54 raoo=7358) BASOPHILS - ABS (CELLAVISION)(BEAKER) (test 0.15 K/uL 0.01-0.08 pahd=5809) BANDS - ABS (CELLAVISION)(BEAKER) (test 0.15 K/uL 0.00-0.80 ulfc=8151) TOTAL COUNTED (BEAKER) (test xrfq=7794) 100 WBC MORPHOLOGY (BEAKER) (test eorf=624) Normal LARGE PLT(BEAKER) (test gdri=6121) Present POLYCHROMATOPHILLIC RBCS(BEAKER) (test ofqr=224) 1+ few BASOPHILIC STIPPLING (BEAKER) (test knbd=139) Present ARTIFACT (CELLAVISION)(BEAKER) (test ldbj=8693) Present PLATELET CONCENTRATION (CELLAVISION)(BEAKER) Adequate (test yhjd=0750) Received comment: User comments: Slide comments:RAD, CHEST, 1 VIEW, NON [id number] 07:39:00Reason for exam:->s/p decorticationShould this be [...] ALEXIS DESAI M.D. on 2017 07:39 AMPOCT-GLUCOSE [id number] 07:09:00 Test Item Value Reference Range Comments POC-GLUCOSE METER (BEAKER) 162 mg/dL 70-110 TESTED AT [facility] [address] [facility] (test ndfb=4501) [facility] [address] BASIC METABOLIC [id number] 06:27:00 Test Item Value Reference Range Comments SODIUM (BEAKER) (test 134 meq/L 136-145 jona=865) POTASSIUM (BEAKER) (test 4.3 meq/L 3.5-5.1 hndj=643) CHLORIDE (BEAKER) (test 98 meq/L 98-107 xfxd=653) CO2 (BEAKER) (test 26 meq/L 22-29 xshl=153) BLOOD UREA NITROGEN 20 mg/dL 7-21 (BEAKER) (test tzmn=755) CREATININE (BEAKER) (test 3.19 mg/dL 0.57-1.25 rkbm=213) GLUCOSE RANDOM (BEAKER) 189 mg/dL 70-105 (test abiv=145) CALCIUM (BEAKER) (test 8.6 mg/dL 8.4-10.2 wbws=381) EGFR (BEAKER) (test 22 mL/min/1.73 sq m ESTIMATED GFR IS NOT qual=8811) ACCURATE CREATININE CLEARANCE IN PREDICTING GLOMERULAR FILTRATION RATE. ESTIMATED GFR IS NOT APPLICABLE FOR DIALYSIS PATIENTS. [id number] 05:45:00 Test Item Value Reference Range Comments PHOSPHORUS (BEAKER) (test pnnw=658) 2.4 mg/dL 2.3-4.7 [id number] 05:45:00 Test Item Value Reference Range Comments MAGNESIUM (BEAKER) (test yksn=949) 2.2 mg/dL 1.6-2.6 [id number] 05:21:00 Test Item Value Reference Range Comments PARTIAL THROMBOPLASTIN TIME (BEAKER) (test 44.8 seconds 22.5-36.0 ndpy=700) PROTHROMBIN [id number] 05:20:00 Test Item Value Reference Range Comments PROTIME (BEAKER) (test gyoe=808) 15.6 seconds 11.7-14.7 INR (BEAKER) (test dima=409) 1.2 <=5.9 RECOMMENDED COUMADIN/WARFARIN INR THERAPY RANGESSTANDARD DOSE: 2.0 - 3.0 Includes: PROPHYLAXIS forvenous thrombosis, systemic embolization; TREATMENT for venous thrombosis and/or pulmonary embolus.HIGH RISK: Target INR is 2.5-3.5 for patients with mechanical heart valves.POCT-GLUCOSE [id number] 21:30:00 Test Item Value Reference Range Comments POC-GLUCOSE METER (BEAKER) 366 mg/dL 70-110 Will Repeat Test/TESTED AT (test byfo=0864) [place] [address] POCT-GLUCOSE [id number] 17:57:00 Test Item Value Reference Range Comments POC-GLUCOSE METER (BEAKER) 122 mg/dL 70-110 TESTED AT [address] (test gdyv=7046) [place] [address] RAD, CHEST, 1 VIEW, NON [id number] 12:57:00Reason for exam:->R CT clampedShould this be [...] [facility] Radiology Reading Room POCT-GLUCOSE [id number] 11:39:00 Test Item Value Reference Range Comments POC-GLUCOSE METER (BEAKER) 81 mg/dL 70-110 TESTED AT [address] (test nqaj=3219) [facility] [address] RAD, CHEST, 1 VIEW, NON [id number] 08:57:00Reason for exam:->s/p decorticationShould this be performed [...] by: ALEXIS DESAI M.D. on07/12/2017 08:57 AMPOCT-GLUCOSE [id number] 07:03:00 Test Item Value Reference Range Comments POC-GLUCOSE METER (BEAKER) 165 mg/dL 70-110 TESTED AT [address] (test ofbl=4206) [facility] [address] BASIC METABOLIC [id number] 05:10:00 Test Item Value Reference Range Comments SODIUM (BEAKER) (test 134 meq/L 136-145 pmsn=558) POTASSIUM (BEAKER) (test 4.2 meq/L 3.5-5.1 lefw=485) CHLORIDE (BEAKER) (test 99 meq/L 98-107 egfm=363) CO2 (BEAKER) (test 25 meq/L 22-29 fhip=712) BLOOD UREA NITROGEN 29 mg/dL 7-21 (BEAKER) (test woor=793) CREATININE (BEAKER) (test 4.75 mg/dL 0.57-1.25 allr=735) GLUCOSE RANDOM (BEAKER) 79 mg/dL 70-105 (test aatv=890) CALCIUM (BEAKER) (test 9.3 mg/dL 8.4-10.2 ddhy=999) EGFR (BEAKER) (test 14 mL/min/1.73 sq m ESTIMATED GFR IS NOT qciu=0526) ACCURATE CREATININE CLEARANCE IN PREDICTING GLOMERULAR FILTRATION RATE. ESTIMATED GFR IS NOT APPLICABLE FOR DIALYSIS PATIENTS. PROTHROMBIN TIME/[id number] 05:02:00 Test Item Value Reference Range Comments PROTIME (BEAKER) (test fiwg=732) 15.7 seconds 11.7-14.7 INR (BEAKER) (test wevy=979) 1.3 <=5.9 RECOMMENDED COUMADIN/WARFARIN INR THERAPY RANGESSTANDARD DOSE: 2.0 - 3.0 Includes: PROPHYLAXIS forvenous thrombosis, systemic embolization; TREATMENT for venous thrombosis and/or pulmonary embolus.HIGH RISK: Target INR is 2.5-3.5 for patients with mechanical heart valves.[id number] 05:02:00 Test Item Value Reference Range Comments PARTIAL THROMBOPLASTIN TIME (BEAKER) (test 45.4 seconds 22.5-36.0 ydbd=383) [id number] 04:50:00 Test Item Value Reference Range Comments PHOSPHORUS (BEAKER) (test kygp=193) 2.1 mg/dL 2.3-4.7 [id number] 04:50:00 Test Item Value Reference Range Comments MAGNESIUM (BEAKER) (test kqjz=967) 2.2 mg/dL 1.6-2.6 CBC W/PLT COUNT & AUTO [id number] 04:47:00 Test Item Value Reference Range Comments WHITE BLOOD CELL COUNT (BEAKER) (test rclv=073) 15.4 K/ L 3.5-10.5 RED BLOOD CELL COUNT (BEAKER) (test wrws=761) 3.74 M/ L 4.63-6.08 HEMOGLOBIN (BEAKER) (test cehp=324) 10.0 GM/DL 13.7-17.5 HEMATOCRIT (BEAKER) (test lcfy=795) 34.1 % 40.1-51.0 MEAN CORPUSCULAR VOLUME (BEAKER) (test qgzw=413) 91.2 fL 79.0-92.2 MEAN CORPUSCULAR HEMOGLOBIN (BEAKER) (test 26.7 pg 25.7-32.2 vshi=918) MEAN CORPUSCULAR HEMOGLOBIN CONC (BEAKER) (test 29.3 GM/DL 32.3-36.5 azhe=745) RED CELL DISTRIBUTION WIDTH (BEAKER) (test 19.3 % 11.6-14.4 dkpc=805) PLATELET COUNT (BEAKER) (test rcdm=761) 278 K/CU MM 150-450 MEAN PLATELET VOLUME (BEAKER) (test ryyu=400) 11.4 fL 9.4-12.4 NUCLEATED RED BLOOD CELLS (BEAKER) (test 0 /100 WBC 0-0 grvj=249) NEUTROPHILS RELATIVE PERCENT (BEAKER) (test 74 % hqdm=726) LYMPHOCYTES RELATIVE PERCENT (BEAKER) (test 8 % hdsi=995) MONOCYTES RELATIVE PERCENT (BEAKER) (test 11 % vyiu=494) EOSINOPHILS RELATIVE PERCENT (BEAKER) (test 5 % xnga=762) BASOPHILS RELATIVE PERCENT (BEAKER) (test 0 % bzzn=999) NEUTROPHILS ABSOLUTE COUNT (BEAKER) (test 11.48 K/ L 1.78-5.38 emzs=428) LYMPHOCYTES ABSOLUTE COUNT (BEAKER) (test 1.22 K/ L 1.32-3.57 nuaw=268) MONOCYTES ABSOLUTE COUNT (BEAKER) (test 1.68 K/ L 0.30-0.82 ckiw=413) EOSINOPHILS ABSOLUTE COUNT (BEAKER) (test 0.73 K/ L 0.04-0.54 grpr=369) BASOPHILS ABSOLUTE COUNT (BEAKER) (test 0.06 K/ L 0.01-0.08 gzzr=061) IMMATURE GRANULOCYTES-RELATIVE PERCENT (BEAKER) 2 % 0-1 (test vyjs=0474) POCT-GLUCOSE [id number] 21:09:00 Test Item Value Reference Range Comments POC-GLUCOSE METER (BEAKER) 162 mg/dL 70-110 TESTED AT [address] (test zapr=7421) [facility] [address] POCT-GLUCOSE [id number] 16:53:00 Test Item Value Reference Range Comments POC-GLUCOSE METER (BEAKER) 222 mg/dL 70-110 TESTED AT [address] (test pdix=9514) [place] [id number] POCT-GLUCOSE [id number] 15:26:00 Test Item Value Reference Range Comments POC-GLUCOSE METER (BEAKER) 141 mg/dL 70-110 TESTED AT [address] (test ndjd=1988) [place] [id number] POCT-GLUCOSE [id number] 15:04:00 Test Item Value Reference Range Comments POC-GLUCOSE METER (BEAKER) 49 mg/dL 70-110 Notified PERLA BARROW/TESTED AT [facility] (test zryf=2065) [address] [place] [id number] RAD, CHEST, 1 VIEW, NON [id number] 13:07:00Reason for exam:->CT removalShould this be performed [...] MDReport Verified Date/Time: 07/11/2017 13:07:52 Reading Location: [facility] Reading Room POCT-GLUCOSE [id number] 11:48:00 Test Item Value Reference Range Comments POC-GLUCOSE METER (BEAKER) 166 mg/dL 70-110 TESTED AT [address] (test qzkv=7801) [facility] [address] RAD, CHEST, 1 VIEW, NON [id number] 08:04:00Reason for exam:->s/p decorticationShould this be performed [...] ALEXIS DESAI M.D. on 2017 08:04 AMPOCT-GLUCOSE [id number] 07:31:00 Test Item Value Reference Range Comments POC-GLUCOSE METER (BEAKER) 144 mg/dL 70-110 TESTED AT [place] [id number] [facility] (test xmay=7895) [facility] [address] [id number] 06:13:00 Test Item Value Reference Range Comments PHOSPHORUS (BEAKER) (test ncbb=714) 1.7 mg/dL 2.3-4.7 [id number] 06:13:00 Test Item Value Reference Range Comments MAGNESIUM (BEAKER) (test xznd=266) 2.2 mg/dL 1.6-2.6 BASIC METABOLIC [id number] 06:13:00 Test Item Value Reference Range Comments SODIUM (BEAKER) (test 138 meq/L 136-145 hfcl=445) POTASSIUM (BEAKER) (test 3.5 meq/L 3.5-5.1 ycey=409) CHLORIDE (BEAKER) (test 100 meq/L 98-107 wqke=665) CO2 (BEAKER) (test 28 meq/L 22-29 hjel=357) BLOOD UREA NITROGEN 15 mg/dL 7-21 (BEAKER) (test kvly=594) CREATININE (BEAKER) (test 2.76 mg/dL 0.57-1.25 hhrw=858) GLUCOSE RANDOM (BEAKER) 42 mg/dL 70-105 (test subd=441) CALCIUM (BEAKER) (test 9.4 mg/dL 8.4-10.2 bxdo=121) EGFR (BEAKER) (test 26 mL/min/1.73 sq m ESTIMATED GFR IS NOT dked=3358) ACCURATE CREATININE CLEARANCE IN PREDICTING GLOMERULAR FILTRATION RATE. ESTIMATED GFR IS NOT APPLICABLE FOR DIALYSIS PATIENTS. POCT-GLUCOSE [id number] 06:02:00 Test Item Value Reference Range Comments POC-GLUCOSE METER (BEAKER) 94 mg/dL 70-110 TESTED AT [facility] [address] [facility] (test isxg=7731) [facility] [address] [id number] 06:01:00 Test Item Value Reference Range Comments PARTIAL THROMBOPLASTIN TIME (BEAKER) (test 33.5 seconds 22.5-36.0 hssa=578) PROTHROMBIN [id number] 06:00:00 Test Item Value Reference Range Comments PROTIME (BEAKER) (test sdyt=742) 15.9 seconds 11.7-14.7 INR (BEAKER) (test obwa=634) 1.3 <=5.9 RECOMMENDED COUMADIN/WARFARIN INR THERAPY RANGESSTANDARD DOSE: 2.0 - 3.0 Includes: PROPHYLAXIS forvenous thrombosis, systemic embolization; TREATMENT for venous thrombosis and/or pulmonary embolus.HIGH RISK: Target INR is 2.5-3.5 for patients with mechanical heart valves.CBC W/PLT COUNT & AUTO [id number] 05:55:00 Test Item Value Reference Range Comments WHITE BLOOD CELL COUNT (BEAKER) (test dalc=581) 14.7 K/ L 3.5-10.5 RED BLOOD CELL COUNT (BEAKER) (test hcsm=858) 3.90 M/ L 4.63-6.08 HEMOGLOBIN (BEAKER) (test zdko=044) 10.3 GM/DL 13.7-17.5 HEMATOCRIT (BEAKER) (test srxh=279) 33.9 % 40.1-51.0 MEAN CORPUSCULAR VOLUME (BEAKER) (test xvtl=790) 86.9 fL 79.0-92.2 MEAN CORPUSCULAR HEMOGLOBIN (BEAKER) (test 26.4 pg 25.7-32.2 hpjy=692) MEAN CORPUSCULAR HEMOGLOBIN CONC (BEAKER) (test 30.4 GM/DL 32.3-36.5 ubka=696) RED CELL DISTRIBUTION WIDTH (BEAKER) (test 18.6 % 11.6-14.4 hbcs=245) PLATELET COUNT (BEAKER) (test genl=360) 238 K/CU MM 150-450 MEAN PLATELET VOLUME (BEAKER) (test dmjt=988) 10.4 fL 9.4-12.4 NUCLEATED RED BLOOD CELLS (BEAKER) (test 0 /100 WBC 0-0 ikvc=084) NEUTROPHILS RELATIVE PERCENT (BEAKER) (test 72 % voxc=200) LYMPHOCYTES RELATIVE PERCENT (BEAKER) (test 6 % tfla=399) MONOCYTES RELATIVE PERCENT (BEAKER) (test 14 % oadt=644) EOSINOPHILS RELATIVE PERCENT (BEAKER) (test 5 % gxqa=499) BASOPHILS RELATIVE PERCENT (BEAKER) (test 1 % mqak=643) NEUTROPHILS ABSOLUTE COUNT (BEAKER) (test 10.56 K/ L 1.78-5.38 ciqa=045) LYMPHOCYTES ABSOLUTE COUNT (BEAKER) (test 0.94 K/ L 1.32-3.57 mvyp=383) MONOCYTES ABSOLUTE COUNT (BEAKER) (test 2.03 K/ L 0.30-0.82 ttju=863) EOSINOPHILS ABSOLUTE COUNT (BEAKER) (test 0.76 K/ L 0.04-0.54 mjhw=400) BASOPHILS ABSOLUTE COUNT (BEAKER) (test 0.07 K/ L 0.01-0.08 qvoj=723) IMMATURE GRANULOCYTES-RELATIVE PERCENT (BEAKER) 2 % 0-1 (test zptv=1226) POCT-GLUCOSE [id number] 05:36:00 Test Item Value Reference Range Comments POC-GLUCOSE METER (BEAKER) 37 mg/dL 70-110 TESTED AT [address] (test oytc=0092) [place] [address] POCT-GLUCOSE [id number] 22:37:00 Test Item Value Reference Range Comments POC-GLUCOSE METER (BEAKER) 136 mg/dL 70-110 TESTED AT [address] (test mcrw=0433) [place] [address] BLOOD [id number] 18:00:00 Test Item Value Reference Range Comments CULTURE (BEAKER) (test cxdu=7204) No growth in 5 days POCT-GLUCOSE [id number] 17:39:00 Test Item Value Reference Range Comments POC-GLUCOSE METER (BEAKER) 184 mg/dL 70-110 TESTED AT [address] (test bstc=8974) [place] [address] RAD, CHEST, 1 VIEW, NON [id number] 13:48:00Reason for exam:->s/p L ct removalShould this [...] Verified Date/Time: 07/10/2017 13 :48:20 Reading Location: [facility] Radiology Reading Room POCT-GLUCOSE [id number] 13 :19:00 Test Item Value Reference Range Comments POC-GLUCOSE METER (BEAKER) 193 mg/dL 70-110 TESTED AT [facility] [address] [facility] (test aryp=5670) [facility] [address] POCT-GLUCOSE [id number] 08:50:00 Test Item Value Reference Range Comments POC-GLUCOSE METER (BEAKER) 136 mg/dL 70-110 TESTED AT [address] (test qtrs=3537) [facility] [address] PROTHROMBIN [id number] 04:55:00 Test Item Value Reference Range Comments PROTIME (BEAKER) (test ybpj=881) 14.7 seconds 11.7-14.7 INR (BEAKER) (test kxjl=808) 1.2 <=5.9 RECOMMENDED COUMADIN/WARFARIN INR THERAPY RANGESSTANDARD DOSE: 2.0 - 3.0 Includes: PROPHYLAXIS forvenous thrombosis, systemic embolization; TREATMENT for venous thrombosis and/or pulmonary embolus.HIGH RISK: Target INR is 2.5-3.5 for patients with mechanical heart valves.[id number] 04:55:00 Test Item Value Reference Range Comments PARTIAL THROMBOPLASTIN TIME (BEAKER) (test 36.2 seconds 22.5-36.0 olrc=218) RAD, CHEST, 1 VIEW, NON [id number] 04:43:00Reason for exam:->s/p decorticationShould this be performed at the bedside?->YesFINAL REPORT Comparison exam: 07/09/2017 Medium-sized right pneumothorax, new when compared to the prior exam. This finding was called to the patient's nurse Lilia on 07/10/2017at 4:40 AM. She will contact the patient's physician. Stable cardiomediastinal contours. Appropriate position of the support hardware. Signed: Jamar Ley MDReport Verified Date/Time : 07/10/2017 04:43:24 Reading Location: [address] Reading Room BASIC METABOLIC [id number] 04:42:00 Test Item Value Reference Range Comments SODIUM (BEAKER) (test 128 meq/L 136-145 rfpm=465) POTASSIUM (BEAKER) (test 4.9 meq/L 3.5-5.1 kbws=155) CHLORIDE (BEAKER) (test 95 meq/L 98-107 lssu=858) CO2 (BEAKER) (test 18 meq/L 22-29 gxvg=798) BLOOD UREA NITROGEN 57 mg/dL 7-21 (BEAKER) (test kdjn=860) CREATININE (BEAKER) (test 6.01 mg/dL 0.57-1.25 tnzr=331) GLUCOSE RANDOM (BEAKER) 172 mg/dL 70-105 (test jtwv=705) CALCIUM (BEAKER) (test 9.4 mg/dL 8.4-10.2 xeuz=295) EGFR (BEAKER) (test 10 mL/min/1.73 sq m ESTIMATED GFR IS NOT twsp=9684) ACCURATE CREATININE CLEARANCE IN PREDICTING GLOMERULAR FILTRATION RATE. ESTIMATED GFR IS NOT APPLICABLE FOR DIALYSIS PATIENTS. Check Serum Phosphorus level 4 hours after IV phosphorus replacement or 8 hours after PO replacementcompleted.[id number] 04:40:00 Test Item Value Reference Range Comments PHOSPHORUS (BEAKER) (test ltgk=226) 3.9 mg/dL 2.3-4.7 Check Serum Phosphorus level 4 hours after IV phosphorus replacement or 8 hours after PO replacementcompleted.[id number] 04:40:00 Test Item Value Reference Range Comments MAGNESIUM (BEAKER) (test rdul=754) 2.6 mg/dL 1.6-2.6 Check Serum Phosphorus level 4 hours after IV phosphorus replacement or 8 hours after PO replacementcompleted.CBC W/PLT COUNT & AUTO [id number] 04:31:00 Test Item Value Reference Range Comments WHITE BLOOD CELL COUNT (BEAKER) (test eakb=561) 16.7 K/ L 3.5-10.5 RED BLOOD CELL COUNT (BEAKER) (test pmoz=921) 3.62 M/ L 4.63-6.08 HEMOGLOBIN (BEAKER) (test qils=132) 9.9 GM/DL 13.7-17.5 HEMATOCRIT (BEAKER) (test gckf=844) 33.2 % 40.1-51.0 MEAN CORPUSCULAR VOLUME (BEAKER) (test lpbf=413) 91.7 fL 79.0-92.2 MEAN CORPUSCULAR HEMOGLOBIN (BEAKER) (test 27.3 pg 25.7-32.2 gvos=821) MEAN CORPUSCULAR HEMOGLOBIN CONC (BEAKER) (test 29.8 GM/DL 32.3-36.5 yziz=395) RED CELL DISTRIBUTION WIDTH (BEAKER) (test 17.6 % 11.6-14.4 mpsb=560) PLATELET COUNT (BEAKER) (test zemq=238) 230 K/CU MM 150-450 MEAN PLATELET VOLUME (BEAKER) (test njmi=615) 10.8 fL 9.4-12.4 NUCLEATED RED BLOOD CELLS (BEAKER) (test 0 /100 WBC 0-0 lwil=567) NEUTROPHILS RELATIVE PERCENT (BEAKER) (test 70 % bvmz=433) LYMPHOCYTES RELATIVE PERCENT (BEAKER) (test 10 % qbhx=188) MONOCYTES RELATIVE PERCENT (BEAKER) (test 12 % zxij=570) EOSINOPHILS RELATIVE PERCENT (BEAKER) (test 5 % ntez=921) BASOPHILS RELATIVE PERCENT (BEAKER) (test 0 % ljgv=624) NEUTROPHILS ABSOLUTE COUNT (BEAKER) (test 11.68 K/ L 1.78-5.38 jddl=628) LYMPHOCYTES ABSOLUTE COUNT (BEAKER) (test 1.68 K/ L 1.32-3.57 nhqg=112) MONOCYTES ABSOLUTE COUNT (BEAKER) (test 1.97 K/ L 0.30-0.82 jooo=119) EOSINOPHILS ABSOLUTE COUNT (BEAKER) (test 0.75 K/ L 0.04-0.54 srle=761) BASOPHILS ABSOLUTE COUNT (BEAKER) (test 0.07 K/ L 0.01-0.08 wwyo=139) IMMATURE GRANULOCYTES-RELATIVE PERCENT (BEAKER) 4 % 0-1 (test bmvr=5174) POCT-GLUCOSE [id number] 23:54:00 Test Item Value Reference Range Comments POC-GLUCOSE METER (BEAKER) 446 mg/dL 70-110 TESTED AT [facility] [address] [facility] (test cfik=2355) [facility] [address] POCT-GLUCOSE [id number] 21:41:00 Test Item Value Reference Range Comments POC-GLUCOSE METER (BEAKER) 320 mg/dL 70-110 TESTED AT [address] (test owtu=7590) [facility] [address] POCT-GLUCOSE [id number] 18:09:00 Test Item Value Reference Range Comments POC-GLUCOSE METER (BEAKER) 320 mg/dL 70-110 Notified PERLA BARROW/TESTED AT [facility] (test lzxq=0172) [address] [place], [place] [id number] RAD, CHEST, 1 VIEW, NON [id number] 14:03:00Reason for exam:->CT removalShould this be performed [...] 2017 02:03 PMCBC W/PLT COUNT & AUTO [id number] 11:17:00 Test Item Value Reference Range Comments WHITE BLOOD CELL COUNT (BEAKER) (test dpyn=115) 15.2 K/ L 3.5-10.5 RED BLOOD CELL COUNT (BEAKER) (test mvsi=110) 3.31 M/ L 4.63-6.08 HEMOGLOBIN (BEAKER) (test fqom=742) 8.9 GM/DL 13.7-17.5 HEMATOCRIT (BEAKER) (test xsyq=331) 29.2 % 40.1-51.0 MEAN CORPUSCULAR VOLUME (BEAKER) (test zmlq=944) 88.2 fL 79.0-92.2 MEAN CORPUSCULAR HEMOGLOBIN (BEAKER) (test 26.9 pg 25.7-32.2 tmsy=640) MEAN CORPUSCULAR HEMOGLOBIN CONC (BEAKER) (test 30.5 GM/DL 32.3-36.5 fwpc=156) RED CELL DISTRIBUTION WIDTH (BEAKER) (test 17.0 % 11.6-14.4 jkke=090) PLATELET COUNT (BEAKER) (test hayg=856) 234 K/CU MM 150-450 MEAN PLATELET VOLUME (BEAKER) (test xfly=791) 11.0 fL 9.4-12.4 NUCLEATED RED BLOOD CELLS (BEAKER) (test 0 /100 WBC 0-0 fple=307) RAD, CHEST, 1 VIEW, NON [id number] 07:40:00Reason for exam:->s/p decorticationShould this be performed [...] [facility] BLOOD GAS, [id number] 06:35:00 Test Item Value Reference Range Comments PH ARTERIAL (BEAKER) (test rzzj=686) 7.36 7.35-7.45 PCO2 ARTERIAL (BEAKER) (test ckdx=493) 46 mmHg 35-45 PO2 ARTERIAL (BEAKER) (test eodg=351) 156 mmHg 80-90 O2 SATURATION ARTERIAL (BEAKER) (test nphj=226) 98.9 % 96.0-97.0 HCO3 ARTERIAL (BEAKER) (test gtlx=703) 25 mmol/L 21-29 BASE EXCESS ARTERIAL (BEAKER) (test alfr=625) -0.8 mmol/L -2.0-3.0 PATIENT TEMPERATURE (BEAKER) (test tqtx=2546) 37.0 C FIO2 (BEAKER) (test ltwb=3925) 24.0 % [id number] 05:56:00 Test Item Value Reference Range Comments PREALBUMIN (BEAKER) (test kwlb=158) 12 mg/dL 14-45 PROTHROMBIN [id number] 05:41:00 Test Item Value Reference Range Comments PROTIME (BEAKER) (test zdzs=734) 15.3 seconds 11.7-14.7 INR (BEAKER) (test eqdz=300) 1.2 <=5.9 RECOMMENDED COUMADIN/WARFARIN INR THERAPY RANGESSTANDARD DOSE: 2.0 - 3.0 Includes: PROPHYLAXIS forvenous thrombosis, systemic embolization; TREATMENT for venous thrombosis and/or pulmonary embolus.HIGH RISK: Target INR is 2.5-3.5 for patients with mechanical heart valves.[id number] 05:41:00 Test Item Value Reference Range Comments PARTIAL THROMBOPLASTIN TIME (BEAKER) (test 47.6 seconds 22.5-36.0 fgip=580) BASIC METABOLIC [id number] 05:37:00 Test Item Value Reference Range Comments SODIUM (BEAKER) (test 129 meq/L 136-145 owbh=183) POTASSIUM (BEAKER) (test 4.7 meq/L 3.5-5.1 xeav=503) CHLORIDE (BEAKER) (test 95 meq/L 98-107 gqxm=360) CO2 (BEAKER) (test 22 meq/L 22-29 zkmo=392) BLOOD UREA NITROGEN 41 mg/dL 7-21 (BEAKER) (test mnaz=496) CREATININE (BEAKER) (test 4.66 mg/dL 0.57-1.25 cwnm=845) GLUCOSE RANDOM (BEAKER) 305 mg/dL 70-105 (test wfei=854) CALCIUM (BEAKER) (test 9.1 mg/dL 8.4-10.2 tfvk=034) EGFR (BEAKER) (test 14 mL/min/1.73 sq m ESTIMATED GFR IS NOT ilfk=3882) ACCURATE CREATININE CLEARANCE IN PREDICTING GLOMERULAR FILTRATION RATE. ESTIMATED GFR IS NOT APPLICABLE FOR DIALYSIS PATIENTS. PROTEIN, [id number] 05:36:00 Test Item Value Reference Range Comments TOTAL PROTEIN (BEAKER) (test tmhn=357) 5.9 gm/dL 6.0-8.3 [id number] 05:36:00 Test Item Value Reference Range Comments MAGNESIUM (BEAKER) (test xhym=738) 2.5 mg/dL 1.6-2.6 [id number] 05:36:00 Test Item Value Reference Range Comments PHOSPHORUS (BEAKER) (test elkx=221) 3.6 mg/dL 2.3-4.7 [id number] 05:36:00 Test Item Value Reference Range Comments ALBUMIN (BEAKER) (test rhfs=7023) 2.6 g/dL 3.5-5.0 POCT-GLUCOSE [id number] 21:11:00 Test Item Value Reference Range Comments POC-GLUCOSE METER (BEAKER) 411 mg/dL 70-110 Notified PERLA BARROW/TESTED AT [facility] (test xipk=6014) [address] [facility] [address] POCT-GLUCOSE [id number] 17:23:00 Test Item Value Reference Range Comments POC-GLUCOSE METER (BEAKER) 277 mg/dL 70-110 TESTED AT [place] [address] [address] (test ymam=1060) [facility] [address] [id number] 15:36:00 Test Item Value Reference Range Comments MAGNESIUM (BEAKER) (test imyu=315) 2.6 mg/dL 1.6-2.6 CBC W/PLT COUNT & AUTO [id number] 12:20:00 Test Item Value Reference Range Comments WHITE BLOOD CELL COUNT (BEAKER) (test cypi=086) 13.6 K/ L 3.5-10.5 RED BLOOD CELL COUNT (BEAKER) (test jcze=237) 3.38 M/ L 4.63-6.08 HEMOGLOBIN (BEAKER) (test colh=848) 9.0 GM/DL 13.7-17.5 HEMATOCRIT (BEAKER) (test dryj=737) 29.9 % 40.1-51.0 MEAN CORPUSCULAR VOLUME (BEAKER) (test lamj=696) 88.5 fL 79.0-92.2 MEAN CORPUSCULAR HEMOGLOBIN (BEAKER) (test 26.6 pg 25.7-32.2 luhg=648) MEAN CORPUSCULAR HEMOGLOBIN CONC (BEAKER) (test 30.1 GM/DL 32.3-36.5 degy=358) RED CELL DISTRIBUTION WIDTH (BEAKER) (test 16.8 % 11.6-14.4 llod=935) PLATELET COUNT (BEAKER) (test ygic=061) 213 K/CU MM 150-450 MEAN PLATELET VOLUME (BEAKER) (test dxjl=351) 10.7 fL 9.4-12.4 NUCLEATED RED BLOOD CELLS (BEAKER) (test 0 /100 WBC 0-0 aoug=415) POCT-GLUCOSE [id number] 11:48:00 Test Item Value Reference Range Comments POC-GLUCOSE METER (BEAKER) 255 mg/dL 70-110 TESTED AT [address] (test skdv=8495) [facility] [address] POCT-GLUCOSE [id number] 08:25:00 Test Item Value Reference Range Comments POC-GLUCOSE METER (BEAKER) 307 mg/dL 70-110 Notified PERLA BARROW/TESTED AT [facility] (test csng=5625) [address] [place] [address] BLOOD GAS, [id number] 05:27:00 Test Item Value Reference Range Comments PH ARTERIAL (BEAKER) (test pjgk=602) 7.39 7.35-7.45 PCO2 ARTERIAL (BEAKER) (test xyxq=276) 48 mmHg 35-45 PO2 ARTERIAL (BEAKER) (test tlpq=329) 122 mmHg 80-90 O2 SATURATION ARTERIAL (BEAKER) (test vnve=350) 98.4 % 96.0-97.0 HCO3 ARTERIAL (BEAKER) (test onli=061) 28 mmol/L 21-29 BASE EXCESS ARTERIAL (BEAKER) (test oxlp=213) 2.4 mmol/L -2.0-3.0 PATIENT TEMPERATURE (BEAKER) (test xjbx=8049) 36.5 C FIO2 (BEAKER) (test qlys=4800) 21.0 % [id number] 05:20:00 Test Item Value Reference Range Comments PHOSPHORUS (BEAKER) (test mhhv=875) 1.3 mg/dL 2.3-4.7 BASIC METABOLIC [id number] 05:18:00 Test Item Value Reference Range Comments SODIUM (BEAKER) (test 133 meq/L 136-145 utnp=612) POTASSIUM (BEAKER) (test 4.5 meq/L 3.5-5.1 dqix=851) CHLORIDE (BEAKER) (test 97 meq/L 98-107 pyqk=515) CO2 (BEAKER) (test 25 meq/L 22-29 suhh=086) BLOOD UREA NITROGEN 20 mg/dL 7-21 (BEAKER) (test waqq=632) CREATININE (BEAKER) (test 2.87 mg/dL 0.57-1.25 rely=322) GLUCOSE RANDOM (BEAKER) 302 mg/dL 70-105 (test qcpj=207) CALCIUM (BEAKER) (test 9.0 mg/dL 8.4-10.2 jmty=663) EGFR (BEAKER) (test 24 mL/min/1.73 sq m ESTIMATED GFR IS NOT gzcn=4824) ACCURATE CREATININE CLEARANCE IN PREDICTING GLOMERULAR FILTRATION RATE. ESTIMATED GFR IS NOT APPLICABLE FOR DIALYSIS PATIENTS. [id number] 05:17:00 Test Item Value Reference Range Comments MAGNESIUM (BEAKER) (test lsnn=456) 1.9 mg/dL 1.6-2.6 RAD, CHEST, 1 VIEW, NON [id number] 05:01:00Reason for exam:->s/p decorticationShould this be performed at the bedside?->YesFINAL REPORT Comparison exam: 07/07/2017 Small bilateral pneumothoraces. Smallstable left pleural effusion. Stable cardiomediastinal contours. Appropriate position of the support hardware. Signed: Jamar Ley Verified Date/Time: 07/08/2017 05:01:59 Reading Location: [address] Reading Room [id number] 04:53:00 Test Item Value Reference Range Comments PARTIAL THROMBOPLASTIN TIME (BEAKER) (test 50.4 seconds 22.5-36.0 pbrq=404) PROTHROMBIN [id number] 04:52:00 Test Item Value Reference Range Comments PROTIME (BEAKER) (test jkra=212) 15.8 seconds 11.7-14.7 INR (BEAKER) (test xywh=808) 1.3 <=5.9 RECOMMENDED COUMADIN/WARFARIN INR THERAPY RANGESSTANDARD DOSE: 2.0 - 3.0 Includes: PROPHYLAXIS forvenous thrombosis, systemic embolization; TREATMENT for venous thrombosis and/or pulmonary embolus.HIGH RISK: Target INR is 2.5-3.5 for patients with mechanical heart valves.ANAEROBIC [id number] 01:38:00 Test Item Value Reference Range Comments CULTURE (BEAKER) (test siak=1959) No anaerobes isolated ANAEROBIC [id number] 01:38:00 Test Item Value Reference Range Comments CULTURE (BEAKER) (test ewer=3833) No anaerobes isolated ANAEROBIC [id number] 01:38:00 Test Item Value Reference Range Comments CULTURE (BEAKER) (test gbns=4995) No anaerobes isolated POCT-GLUCOSE [id number] 21:36:00 Test Item Value Reference Range Comments POC-GLUCOSE METER (BEAKER) 265 mg/dL 70-110 TESTED AT [address] (test ghyy=7146) [place] [address] POCT-GLUCOSE [id number] 16:24:00 Test Item Value Reference Range Comments POC-GLUCOSE METER (BEAKER) 119 mg/dL 70-110 TESTED AT [address] (test abrw=1461) [place] [address] CBC W/PLT COUNT & AUTO [id number] 15:44:00 Test Item Value Reference Range Comments WHITE BLOOD CELL COUNT (BEAKER) (test kvzb=542) 11.8 K/ L 3.5-10.5 RED BLOOD CELL COUNT (BEAKER) (test xktn=633) 3.20 M/ L 4.63-6.08 HEMOGLOBIN (BEAKER) (test pnje=076) 8.6 GM/DL 13.7-17.5 HEMATOCRIT (BEAKER) (test zcpk=870) 29.3 % 40.1-51.0 MEAN CORPUSCULAR VOLUME (BEAKER) (test ddae=792) 91.6 fL 79.0-92.2 MEAN CORPUSCULAR HEMOGLOBIN (BEAKER) (test 26.9 pg 25.7-32.2 qiup=511) MEAN CORPUSCULAR HEMOGLOBIN CONC (BEAKER) (test 29.4 GM/DL 32.3-36.5 xfra=716) RED CELL DISTRIBUTION WIDTH (BEAKER) (test 17.0 % 11.6-14.4 ytmm=842) PLATELET COUNT (BEAKER) (test oxca=327) 257 K/CU MM 150-450 MEAN PLATELET VOLUME (BEAKER) (test lrfc=181) 10.8 fL 9.4-12.4 NUCLEATED RED BLOOD CELLS (BEAKER) (test 0 /100 WBC 0-0 qvkm=123) POCT-GLUCOSE [id number] 12:13:00 Test Item Value Reference Range Comments POC-GLUCOSE METER (BEAKER) 195 mg/dL 70-110 TESTED AT [address] (test yctb=7824) [place] [address] POCT-GLUCOSE [id number] 09:31:00 Test Item Value Reference Range Comments POC-GLUCOSE METER (BEAKER) 76 mg/dL 70-110 TESTED AT [address] (test iurt=0618) [place] [address] POCT-GLUCOSE [id number] 09:12:00 Test Item Value Reference Range Comments POC-GLUCOSE METER (BEAKER) 60 mg/dL 70-110 Will Repeat Test/TESTED AT (test gkkt=9523) [address] [address] BLOOD GAS, [id number] 06:33:00 Test Item Value Reference Range Comments PH ARTERIAL (BEAKER) (test hzaj=561) 7.38 7.35-7.45 PCO2 ARTERIAL (BEAKER) (test pnta=168) 47 mmHg 35-45 PO2 ARTERIAL (BEAKER) (test ycju=386) 171 mmHg 80-90 O2 SATURATION ARTERIAL (BEAKER) (test lvtz=681) 99.1 % 96.0-97.0 HCO3 ARTERIAL (BEAKER) (test mcww=196) 28 mmol/L 21-29 BASE EXCESS ARTERIAL (BEAKER) (test xwsn=819) 2.1 mmol/L -2.0-3.0 PATIENT TEMPERATURE (BEAKER) (test wimd=3509) 37.0 C FIO2 (BEAKER) (test jnjt=5987) 28.0 % [id number] 06:10:00 Test Item Value Reference Range Comments PARTIAL THROMBOPLASTIN TIME (BEAKER) (test 47.3 seconds 22.5-36.0 lrgx=505) PROTHROMBIN [id number] 06:09:00 Test Item Value Reference Range Comments PROTIME (BEAKER) (test jfee=509) 14.6 seconds 11.7-14.7 INR (BEAKER) (test mpev=904) 1.1 <=5.9 RECOMMENDED COUMADIN/WARFARIN INR THERAPY RANGESSTANDARD DOSE: 2.0 - 3.0 Includes: PROPHYLAXIS forvenous thrombosis, systemic embolization; TREATMENT for venous thrombosis and/or pulmonary embolus.HIGH RISK: Target INR is 2.5-3.5 for patients with mechanical heart valves.BASIC METABOLIC [id number] 05:54: 00 Test Item Value Reference Range Comments SODIUM (BEAKER) (test 139 meq/L 136-145 yvsa=651) POTASSIUM (BEAKER) (test 3.9 meq/L 3.5-5.1 cksu=159) CHLORIDE (BEAKER) (test 103 meq/L 98-107 rhmp=461) CO2 (BEAKER) (test 26 meq/L 22-29 utmg=398) BLOOD UREA NITROGEN 39 mg/dL 7-21 (BEAKER) (test npge=906) CREATININE (BEAKER) (test 4.62 mg/dL 0.57-1.25 zpot=108) GLUCOSE RANDOM (BEAKER) 86 mg/dL 70-105 (test gmze=135) CALCIUM (BEAKER) (test 9.1 mg/dL 8.4-10.2 ejky=839) EGFR (BEAKER) (test 14 mL/min/1.73 sq m ESTIMATED GFR IS NOT frgz=8559) ACCURATE CREATININE CLEARANCE IN PREDICTING GLOMERULAR FILTRATION RATE. ESTIMATED GFR IS NOT APPLICABLE FOR DIALYSIS PATIENTS. [id number] 05:52:00 Test Item Value Reference Range Comments PHOSPHORUS (BEAKER) (test ttge=482) 2.0 mg/dL 2.3-4.7 [id number] 05:52:00 Test Item Value Reference Range Comments MAGNESIUM (BEAKER) (test fifp=015) 2.3 mg/dL 1.6-2.6 RAD, CHEST, 1 VIEW, NON [id number] 04:34:00Reason for exam:->s/p decorticationShould this be performed at the bedside?->YesFINAL REPORT Comparison exam: 07/06/2017 Interval improvement in the right pneumothorax. Small bilateral pneumothoraces remain. Left lower lobe atelectasis/consolidation, unchanged. Stable cardiomediastinal contours. Appropriate position of the support hardware. Signed: Jamar Ley Verified Date/Time: 07/07/2017 04:34:32 Reading Location: [address] Reading Room POCT-GLUCOSE [id number] 00:10:00 Test Item Value Reference Range Comments POC-GLUCOSE METER (BEAKER) 202 mg/dL 70-110 TESTED AT [address] (test uyor=7865) [facility] [address] POCT-GLUCOSE [id number] 18:01:00 Test Item Value Reference Range Comments POC-GLUCOSE METER (BEAKER) 364 mg/dL 70-110 TESTED AT [address] (test euac=2390) [facility] [address] RAD, CHEST, 1 VIEW, NON [id number] 14:24:00Reason for exam:->R CT to water sealShould [...] Ramirez Verified Date/Time: 07/06/2017 14:24:47 Reading Location: [facility] POCT-GLUCOSE [id number] 12:18 :00 Test Item Value Reference Range Comments POC-GLUCOSE METER (BEAKER) 254 mg/dL 70-110 TESTED AT [facility] [address] [facility] (test rygw=8607) [facility] [address] CBC W/PLT COUNT & AUTO [id number] 11:25:00 Test Item Value Reference Range Comments WHITE BLOOD CELL COUNT (BEAKER) (test pabg=710) 13.3 K/ L 3.5-10.5 RED BLOOD CELL COUNT (BEAKER) (test ytdx=419) 3.07 M/ L 4.63-6.08 HEMOGLOBIN (BEAKER) (test lxqv=261) 8.2 GM/DL 13.7-17.5 HEMATOCRIT (BEAKER) (test rinm=101) 27.2 % 40.1-51.0 MEAN CORPUSCULAR VOLUME (BEAKER) (test kiox=753) 88.6 fL 79.0-92.2 MEAN CORPUSCULAR HEMOGLOBIN (BEAKER) (test 26.7 pg 25.7-32.2 whma=616) MEAN CORPUSCULAR HEMOGLOBIN CONC (BEAKER) (test 30.1 GM/DL 32.3-36.5 ppoy=564) RED CELL DISTRIBUTION WIDTH (BEAKER) (test 16.9 % 11.6-14.4 owcx=209) PLATELET COUNT (BEAKER) (test chaf=475) 235 K/CU MM 150-450 MEAN PLATELET VOLUME (BEAKER) (test cjsk=361) 10.5 fL 9.4-12.4 NUCLEATED RED BLOOD CELLS (BEAKER) (test 0 /100 WBC 0-0 ftev=098) RAD, CHEST, 1 VIEW, NON [id number] 07:44:00Reason for exam:->s/p decorticationShould this be performed [...] CATA MONTANO M.D. on 02/2017 07:44 AMPOCT-GLUCOSE [id number] 06:46:00 Test Item Value Reference Range Comments POC-GLUCOSE METER (BEAKER) 123 mg/dL 70-110 TESTED AT [facility] [address] [facility] (test zrdt=5875) [facility] [address] BASIC METABOLIC [id number] 05:13:00 Test Item Value Reference Range Comments SODIUM (BEAKER) (test 140 meq/L 136-145 mbul=743) POTASSIUM (BEAKER) (test 4.0 meq/L 3.5-5.1 uqkq=099) CHLORIDE (BEAKER) (test 104 meq/L 98-107 mbzq=767) CO2 (BEAKER) (test 27 meq/L 22-29 rptx=583) BLOOD UREA NITROGEN 16 mg/dL 7-21 (BEAKER) (test cdqo=986) CREATININE (BEAKER) (test 2.62 mg/dL 0.57-1.25 azpk=325) GLUCOSE RANDOM (BEAKER) 115 mg/dL 70-105 (test kvfd=627) CALCIUM (BEAKER) (test 9.6 mg/dL 8.4-10.2 qdbi=148) EGFR (BEAKER) (test 27 mL/min/1.73 sq m ESTIMATED GFR IS NOT wwvm=8821) ACCURATE CREATININE CLEARANCE IN PREDICTING GLOMERULAR FILTRATION RATE. ESTIMATED GFR IS NOT APPLICABLE FOR DIALYSIS PATIENTS. [id number] 05:08:00 Test Item Value Reference Range Comments PHOSPHORUS (BEAKER) (test vvfe=488) 1.7 mg/dL 2.3-4.7 [id number] 05:08:00 Test Item Value Reference Range Comments MAGNESIUM (BEAKER) (test vrqj=958) 2.1 mg/dL 1.6-2.6 BLOOD GAS, [id number] 05:04:00 Test Item Value Reference Range Comments PH ARTERIAL (BEAKER) (test ogid=761) 7.53 7.35-7.45 PCO2 ARTERIAL (BEAKER) (test heuj=621) 35 mmHg 35-45 PO2 ARTERIAL (BEAKER) (test puue=998) 203 mmHg 80-90 O2 SATURATION ARTERIAL (BEAKER) (test hcvd=932) 99.5 % 96.0-97.0 HCO3 ARTERIAL (BEAKER) (test dpsm=320) 29 mmol/L 21-29 BASE EXCESS ARTERIAL (BEAKER) (test scxq=130) 5.6 mmol/L -2.0-3.0 PATIENT TEMPERATURE (BEAKER) (test wxdd=6101) 37.0 C FIO2 (BEAKER) (test upxa=6142) 30.0 % [id number] 04:42:00 Test Item Value Reference Range Comments PARTIAL THROMBOPLASTIN TIME (BEAKER) (test 45.3 seconds 22.5-36.0 mpho=006) PROTHROMBIN [id number] 04:41:00 Test Item Value Reference Range Comments PROTIME (BEAKER) (test yjap=087) 14.6 seconds 11.7-14.7 INR (BEAKER) (test fosa=604) 1.1 <=5.9 RECOMMENDED COUMADIN/WARFARIN INR THERAPY RANGESSTANDARD DOSE: 2.0 - 3.0 Includes: PROPHYLAXIS forvenous thrombosis, systemic embolization; TREATMENT for venous thrombosis and/or pulmonary embolus.HIGH RISK: Target INR is 2.5-3.5 for patients with mechanical heart valves.POCT-GLUCOSE [id number] 00:15:00 Test Item Value Reference Range Comments POC-GLUCOSE METER (BEAKER) 122 mg/dL 70-110 TESTED AT [facility] [address] [facility] (test gmqm=2029) [facility] [address] URINALYSIS W/ REFLEX URINE [id number] 23:02:00 Test Item Value Reference Range Comments COLOR (BEAKER) (test imtz=477) Yellow CLARITY (BEAKER) (test fbrh=584) Hazy SPECIFIC GRAVITY UA (BEAKER) (test nhyg=799) 1.016 1.001-1.035 PH UA (BEAKER) (test ipbp=229) 6.5 5.0-8.0 PROTEIN UA (BEAKER) (test eqnj=792) 600 mg/dL Negative GLUCOSE UA (BEAKER) (test keia=554) 500 mg/dL Negative KETONES UA (BEAKER) (test fwzj=044) Negative Negative BILIRUBIN UA (BEAKER) (test suay=865) Negative Negative BLOOD UA (BEAKER) (test iury=077) Negative Negative NITRITE UA (BEAKER) (test ouoz=631) Negative Negative LEUKOCYTE ESTERASE UA (BEAKER) (test vfga=435) Negative Negative UROBILINOGEN UA (BEAKER) (test kuly=835) 0.2 mg/dL 0.2-1.0 RBC UA (BEAKER) (test bjie=194) 4 /HPF WBC UA (BEAKER) (test izws=945) 2 /HPF BACTERIA (BEAKER) (test pevx=198) Occasional SOURCE(BEAKER) (test isln=5703) RAD, CHEST, 1 VIEW, NON [id number] 20:06:00Reason for exam:-> hypoxiaShould this be performed at the bedside?->YesFINAL REPORT Comparison exam: 07/05/2017 time 6:14 AM Small bilateral pneumothoraces, improved on the left when compared to the prior exam. Stable cardiomediastinal contours. Appropriate position of the support hardware. Signed: [facility] Verified Date/Time:07/05/2017 20:06:44 Reading Location: [address] Reading Room TISSUE [id number] 19:06: 00Surgical Pathology Report Case: [id number] Authorizing Provider: Guillermo Snow MD Collected : 06/30/2017 1118 Ordering Location: [address] Received: 07/03/2017 0751 Service Pathologist: Frantz Ruiz MD Specimens: A) - Lung, Left Lower Lobe, Left lower lobe peel B) -Lung, Left Upper Lobe, Left upper lobe peel A. LUNG, LEFT LOWER LOBE, PLEURAL DECORTICATION: - ORGANIZING PLEURITIS - NEGATIVE FOR MALIGNANCYB. LUNG, LEFT LOWER LOBE, PLEURAL DECORTICATION: - ORGANIZING PLEURITIS - NEGATIVE FOR MALIGNANCY Signing Pathologist Direct Phone Line: [phone] pleural effusionA. Left lower lobe peel; B. [...] entirely B1 to B3. CG/pl Performed.BLOOD GAS, [id number] 17:59:00 Test Item Value Reference Range Comments PH ARTERIAL (BEAKER) (test ivyn=314) 7.37 7.35-7.45 PCO2 ARTERIAL (BEAKER) (test cgrh=316) 47 mmHg 35-45 PO2 ARTERIAL (BEAKER) (test jnwx=042) 60 mmHg 80-90 O2 SATURATION ARTERIAL (BEAKER) (test ujxt=833) 91.7 % 96.0-97.0 HCO3 ARTERIAL (BEAKER) (test wnbv=311) 27 mmol/L 21-29 BASE EXCESS ARTERIAL (BEAKER) (test mpvd=051) 1.2 mmol/L -2.0-3.0 PATIENT TEMPERATURE (BEAKER) (test isto=9939) 35.8 C FIO2 (BEAKER) (test sezf=3271) 30.0 % POCT-GLUCOSE [id number] 17:50:00 Test Item Value Reference Range Comments POC-GLUCOSE METER (BEAKER) 198 mg/dL 70-110 TESTED AT [facility] [address] [facility] (test fhbs=3036) [place] [id number] POCT-GLUCOSE [id number] 13:56:00 Test Item Value Reference Range Comments POC-GLUCOSE METER (BEAKER) 204 mg/dL 70-110 TESTED AT [facility] [address] [facility] (test cjqu=2052) [facility] [address] ANAEROBIC [id number] 11:01:00 Test Item Value Reference Range Comments CULTURE (BEAKER) (test xhrk=0993) No anaerobes isolated ANAEROBIC [id number] 11:01:00 Test Item Value Reference Range Comments CULTURE (BEAKER) (test vtnh=4100) No anaerobes isolated ANAEROBIC [id number] 11:01:00 Test Item Value Reference Range Comments CULTURE (BEAKER) (test ttda=9601) No anaerobes isolated ANAEROBIC [id number] 11:00:00 Test Item Value Reference Range Comments CULTURE (BEAKER) (test nlvm=5986) No anaerobes isolated RAD, CHEST, 1 VIEW, NON [id number] 09:47:00Reason for exam:->s/p decorticationShould this be performed [...] [facility] Radiology Reading Room POCT-GLUCOSE [id number] 09:41:00 Test Item Value Reference Range Comments POC-GLUCOSE METER (BEAKER) 338 mg/dL 70-110 Notified PERLA BARROW/TESTED AT [facility] (test tifn=5986) [address] [facility] [address] CBC W/PLT COUNT & AUTO [id number] 06:31:00 Test Item Value Reference Range Comments WHITE BLOOD CELL COUNT (BEAKER) (test ssac=635) 17.6 K/ L 3.5-10.5 RED BLOOD CELL COUNT (BEAKER) (test llfp=267) 3.16 M/ L 4.63-6.08 HEMOGLOBIN (BEAKER) (test gnob=451) 8.4 GM/DL 13.7-17.5 HEMATOCRIT (BEAKER) (test eslh=736) 28.7 % 40.1-51.0 MEAN CORPUSCULAR VOLUME (BEAKER) (test omew=879) 90.8 fL 79.0-92.2 MEAN CORPUSCULAR HEMOGLOBIN (BEAKER) (test 26.6 pg 25.7-32.2 qmez=266) MEAN CORPUSCULAR HEMOGLOBIN CONC (BEAKER) (test 29.3 GM/DL 32.3-36.5 isjp=586) RED CELL DISTRIBUTION WIDTH (BEAKER) (test 17.2 % 11.6-14.4 tyjx=686) PLATELET COUNT (BEAKER) (test emda=617) 272 K/CU MM 150-450 MEAN PLATELET VOLUME (BEAKER) (test ugbu=909) 11.4 fL 9.4-12.4 NUCLEATED RED BLOOD CELLS (BEAKER) (test 0 /100 WBC 0-0 nzol=026) NEUTROPHILS RELATIVE PERCENT (BEAKER) (test 84 % muef=715) LYMPHOCYTES RELATIVE PERCENT (BEAKER) (test 4 % ujbo=797) MONOCYTES RELATIVE PERCENT (BEAKER) (test 9 % tyeg=218) EOSINOPHILS RELATIVE PERCENT (BEAKER) (test 2 % xuiy=175) BASOPHILS RELATIVE PERCENT (BEAKER) (test 0 % xiqk=379) NEUTROPHILS ABSOLUTE COUNT (BEAKER) (test 14.81 K/ L 1.78-5.38 dcwj=619) LYMPHOCYTES ABSOLUTE COUNT (BEAKER) (test 0.62 K/ L 1.32-3.57 ofro=667) MONOCYTES ABSOLUTE COUNT (BEAKER) (test 1.57 K/ L 0.30-0.82 xmkb=617) EOSINOPHILS ABSOLUTE COUNT (BEAKER) (test 0.31 K/ L 0.04-0.54 isqi=610) BASOPHILS ABSOLUTE COUNT (BEAKER) (test 0.07 K/ L 0.01-0.08 wbdf=502) IMMATURE GRANULOCYTES-RELATIVE PERCENT (BEAKER) 1 % 0-1 (test hqti=0197) [id number] 06:04:00 Test Item Value Reference Range Comments PROTIME (BEAKER) (test xjqv=988) 15.6 seconds 11.7-14.7 INR (BEAKER) (test haqn=187) 1.2 <=5.9 PARTIAL THROMBOPLASTIN TIME (BEAKER) (test 55.5 seconds 22.5-36.0 bmeo=025) RECOMMENDED COUMADIN/WARFARIN INR THERAPY RANGESSTANDARD DOSE: 2.0 - 3.0 Includes: PROPHYLAXIS forvenous thrombosis, systemic embolization; TREATMENT for venous thrombosis and/or pulmonary embolus.HIGH RISK: Target INR is 2.5-3.5 for patients with mechanical heart valves.BASIC METABOLIC [id number] 05:44: 00 Test Item Value Reference Range Comments SODIUM (BEAKER) (test 140 meq/L 136-145 wbtr=809) POTASSIUM (BEAKER) (test 4.6 meq/L 3.5-5.1 exxb=842) CHLORIDE (BEAKER) (test 101 meq/L 98-107 zjry=309) CO2 (BEAKER) (test 24 meq/L 22-29 uorz=732) BLOOD UREA NITROGEN 46 mg/dL 7-21 (BEAKER) (test tfjw=134) CREATININE (BEAKER) (test 6.35 mg/dL 0.57-1.25 wbmb=367) GLUCOSE RANDOM (BEAKER) 251 mg/dL 70-105 (test ydqw=496) CALCIUM (BEAKER) (test 8.2 mg/dL 8.4-10.2 zcau=455) EGFR (BEAKER) (test 10 mL/min/1.73 sq m ESTIMATED GFR IS NOT akkq=0240) ACCURATE CREATININE CLEARANCE IN PREDICTING GLOMERULAR FILTRATION RATE. ESTIMATED GFR IS NOT APPLICABLE FOR DIALYSIS PATIENTS. [id number] 05:22:00 Test Item Value Reference Range Comments PARTIAL THROMBOPLASTIN TIME (BEAKER) (test > seconds 22.5-36.0 pwop=006) [id number] 05:12:00 Test Item Value Reference Range Comments PHOSPHORUS (BEAKER) (test clcd=735) 6.1 mg/dL 2.3-4.7 [id number] 05:12:00 Test Item Value Reference Range Comments MAGNESIUM (BEAKER) (test dnre=249) 2.3 mg/dL 1.6-2.6 PROTHROMBIN [id number] 05:00:00 Test Item Value Reference Range Comments PROTIME (BEAKER) (test xmwe=388) 17.6 seconds 11.7-14.7 INR (BEAKER) (test yobm=322) 1.5 <=5.9 RECOMMENDED COUMADIN/WARFARIN INR THERAPY RANGESSTANDARD DOSE: 2.0 - 3.0 Includes: PROPHYLAXIS forvenous thrombosis, systemic embolization; TREATMENT for venous thrombosis and/or pulmonary embolus.HIGH RISK: Target INR is 2.5-3.5 for patients with mechanical heart valves.BLOOD GAS, [id number] 04:49:00 Test Item Value Reference Range Comments PH ARTERIAL (BEAKER) (test kqxh=828) 7.33 7.35-7.45 PCO2 ARTERIAL (BEAKER) (test fpcz=152) 51 mmHg 35-45 PO2 ARTERIAL (BEAKER) (test motb=310) 158 mmHg 80-90 O2 SATURATION ARTERIAL (BEAKER) (test xgbi=664) 98.9 % 96.0-97.0 HCO3 ARTERIAL (BEAKER) (test pkjt=089) 26 mmol/L 21-29 BASE EXCESS ARTERIAL (BEAKER) (test ysag=483) -0.1 mmol/L -2.0-3.0 PATIENT TEMPERATURE (BEAKER) (test jfdw=4725) 37.0 C FIO2 (BEAKER) (test vpgf=5829) 28.0 % POCT-GLUCOSE [id number] 21:51:00 Test Item Value Reference Range Comments POC-GLUCOSE METER (BEAKER) 292 mg/dL 70-110 TESTED AT [address] (test gcfx=2703) [place] [id number] POCT-GLUCOSE [id number] 18:49:00 Test Item Value Reference Range Comments POC-GLUCOSE METER (BEAKER) 248 mg/dL 70-110 TESTED AT [address] (test qkpc=2779) [facility] [address] RAD, CHEST, 1 VIEW, NON [id number] 14:39:00Reason for exam:->eval pneumo , suction to [...] the retrocardiac left low lung. Signed: Cata oMntano Verified Date/Time:07/04/2017 14:39:09 Reading Location: [facility] B1 C013W Consult Reading Room POCT-GLUCOSE [id number] 13:28:00 Test Item Value Reference Range Comments POC-GLUCOSE METER (BEAKER) 278 mg/dL 70-110 TESTED AT [address] (test kozk=6402) [facility] [address] BLOOD GAS, [id number] 09:41:00 Test Item Value Reference Range Comments PH ARTERIAL (BEAKER) (test nidl=347) 7.30 7.35-7.45 PCO2 ARTERIAL (BEAKER) (test fcgm=679) 56 mmHg 35-45 PO2 ARTERIAL (BEAKER) (test duao=736) 110 mmHg 80-90 O2 SATURATION ARTERIAL (BEAKER) (test fwqn=906) 97.4 % 96.0-97.0 HCO3 ARTERIAL (BEAKER) (test onwd=019) 27 mmol/L 21-29 BASE EXCESS ARTERIAL (BEAKER) (test durb=138) -0.3 mmol/L -2.0-3.0 PATIENT TEMPERATURE (BEAKER) (test okkl=9720) 37.0 C FIO2 (BEAKER) (test zddh=8296) 28.0 % POCT-GLUCOSE [id number] 09:16:00 Test Item Value Reference Range Comments POC-GLUCOSE METER (BEAKER) 161 mg/dL 70-110 TESTED AT [address] (test ctvk=2206) [place] [address] RAD, CHEST, 1 VIEW, NON [id number] 09:13:00Reason for exam:->s/p decorticationShould this be performed [...] [facility] BLOOD GAS, [id number] 04:33:00 Test Item Value Reference Range Comments PH ARTERIAL (BEAKER) (test umzq=342) 7.30 7.35-7.45 PCO2 ARTERIAL (BEAKER) (test bvnx=804) 57 mmHg 35-45 PO2 ARTERIAL (BEAKER) (test bpal=824) 97 mmHg 80-90 O2 SATURATION ARTERIAL (BEAKER) (test pyip=032) 96.6 % 96.0-97.0 HCO3 ARTERIAL (BEAKER) (test ptgg=348) 27 mmol/L 21-29 BASE EXCESS ARTERIAL (BEAKER) (test gvlv=702) 0.3 mmol/L -2.0-3.0 PATIENT TEMPERATURE (BEAKER) (test uaia=0756) 37.0 C FIO2 (BEAKER) (test bcol=6220) 28.0 % BASIC METABOLIC [id number] 04:18:00 Test Item Value Reference Range Comments SODIUM (BEAKER) (test 142 meq/L 136-145 ecep=599) POTASSIUM (BEAKER) (test 4.9 meq/L 3.5-5.1 xsjk=511) CHLORIDE (BEAKER) (test 101 meq/L 98-107 brsd=128) CO2 (BEAKER) (test 25 meq/L 22-29 sxed=768) BLOOD UREA NITROGEN 24 mg/dL 7-21 (BEAKER) (test apmk=239) CREATININE (BEAKER) (test 4.57 mg/dL 0.57-1.25 ursr=748) GLUCOSE RANDOM (BEAKER) 152 mg/dL 70-105 (test pmgt=757) CALCIUM (BEAKER) (test 8.9 mg/dL 8.4-10.2 xouc=497) EGFR (BEAKER) (test 14 mL/min/1.73 sq m ESTIMATED GFR IS NOT xrry=9365) ACCURATE CREATININE CLEARANCE IN PREDICTING GLOMERULAR FILTRATION RATE. ESTIMATED GFR IS NOT APPLICABLE FOR DIALYSIS PATIENTS. [id number] 04:15:00 Test Item Value Reference Range Comments PHOSPHORUS (BEAKER) (test efar=369) 6.5 mg/dL 2.3-4.7 [id number] 04:15:00 Test Item Value Reference Range Comments MAGNESIUM (BEAKER) (test pmer=455) 2.2 mg/dL 1.6-2.6 CBC W/PLT COUNT & AUTO [id number] 04:10:00 Test Item Value Reference Range Comments WHITE BLOOD CELL COUNT (BEAKER) (test pyaf=314) 18.0 K/ L 3.5-10.5 RED BLOOD CELL COUNT (BEAKER) (test eyis=949) 3.44 M/ L 4.63-6.08 HEMOGLOBIN (BEAKER) (test cmzs=316) 9.2 GM/DL 13.7-17.5 HEMATOCRIT (BEAKER) (test edlm=933) 31.5 % 40.1-51.0 MEAN CORPUSCULAR VOLUME (BEAKER) (test elyk=024) 91.6 fL 79.0-92.2 MEAN CORPUSCULAR HEMOGLOBIN (BEAKER) (test 26.7 pg 25.7-32.2 mbic=565) MEAN CORPUSCULAR HEMOGLOBIN CONC (BEAKER) (test 29.2 GM/DL 32.3-36.5 wpod=425) RED CELL DISTRIBUTION WIDTH (BEAKER) (test 17.5 % 11.6-14.4 qmqt=376) PLATELET COUNT (BEAKER) (test kmiq=972) 261 K/CU MM 150-450 MEAN PLATELET VOLUME (BEAKER) (test pgqs=126) 11.8 fL 9.4-12.4 NUCLEATED RED BLOOD CELLS (BEAKER) (test 0 /100 WBC 0-0 emix=389) NEUTROPHILS RELATIVE PERCENT (BEAKER) (test 88 % crek=398) LYMPHOCYTES RELATIVE PERCENT (BEAKER) (test 4 % qdjs=538) MONOCYTES RELATIVE PERCENT (BEAKER) (test 8 % xohm=586) EOSINOPHILS RELATIVE PERCENT (BEAKER) (test 0 % ucsn=549) BASOPHILS RELATIVE PERCENT (BEAKER) (test 0 % bfed=181) NEUTROPHILS ABSOLUTE COUNT (BEAKER) (test 15.84 K/ L 1.78-5.38 hdmo=633) LYMPHOCYTES ABSOLUTE COUNT (BEAKER) (test 0.63 K/ L 1.32-3.57 mxps=705) MONOCYTES ABSOLUTE COUNT (BEAKER) (test 1.36 K/ L 0.30-0.82 bdea=147) EOSINOPHILS ABSOLUTE COUNT (BEAKER) (test 0.05 K/ L 0.04-0.54 pjyp=763) BASOPHILS ABSOLUTE COUNT (BEAKER) (test 0.05 K/ L 0.01-0.08 utks=266) IMMATURE GRANULOCYTES-RELATIVE PERCENT (BEAKER) 1 % 0-1 (test fytn=9689) [id number] 04:10:00 Test Item Value Reference Range Comments PARTIAL THROMBOPLASTIN TIME (BEAKER) (test 54.7 seconds 22.5-36.0 aron=660) PROTHROMBIN [id number] 04:08:00 Test Item Value Reference Range Comments PROTIME (BEAKER) (test skay=952) 17.5 seconds 11.7-14.7 INR (BEAKER) (test ccbf=716) 1.4 <=5.9 RECOMMENDED COUMADIN/WARFARIN INR THERAPY RANGESSTANDARD DOSE: 2.0 - 3.0 Includes: PROPHYLAXIS forvenous thrombosis, systemic embolization; TREATMENT for venous thrombosis and/or pulmonary embolus.HIGH RISK: Target INR is 2.5-3.5 for patients with mechanical heart valves.POCT-GLUCOSE [id number] 22:23:00 Test Item Value Reference Range Comments POC-GLUCOSE METER (BEAKER) 125 mg/dL 70-110 TESTED AT [facility] [address] [facility] (test gevj=2137) [facility] [address] POCT-GLUCOSE [id number] 18:19:00 Test Item Value Reference Range Comments POC-GLUCOSE METER (BEAKER) 95 mg/dL 70-110 TESTED AT [place] [id number] [facility] (test cssy=1547) [facility] [address] RAD, CHEST, 1 VIEW, NON [id number] 17:14:00Reason for exam:->CT to water seal, extubationShould [...] Ramirez Verified Date/Time: 07/03/2017 17:14:23 Reading Location: [facility] Radiology Reading Room Electronically signed by: LIZ RAMIREZ on 2017 05:14 PMBLOOD GAS, [id number] 14:24:00 Test Item Value Reference Range Comments PH ARTERIAL (BEAKER) (test dyxz=092) 7.39 7.35-7.45 PCO2 ARTERIAL (BEAKER) (test lcxl=423) 49 mmHg 35-45 PO2 ARTERIAL (BEAKER) (test rffu=164) 191 mmHg 80-90 O2 SATURATION ARTERIAL (BEAKER) (test mruv=588) 99.3 % 96.0-97.0 HCO3 ARTERIAL (BEAKER) (test rhrk=024) 29 mmol/L 21-29 BASE EXCESS ARTERIAL (BEAKER) (test onte=347) 3.6 mmol/L -2.0-3.0 PATIENT TEMPERATURE (BEAKER) (test stxg=4155) 36.8 C FIO2 (BEAKER) (test fjmd=8451) 40.0 % ANAEROBIC [id number] 14:03:00 Test Item Value Reference Range Comments CULTURE (BEAKER) (test btkm=2567) No anaerobes isolated SURGICALLY OBTAINED CULTURE + GRAM [id number] 13:40:00 Test Item Value Reference Range Comments CULTURE (BEAKER) (test COAGULASE NEGATIVE 1+ Coagulase negative inlc=0036) STAPHYLOCOCCUS Staphylococcus Clindamycin (test code=10) Erythromycin (test code=4) Linezolid (test code=40) Nitrofurantoin (test code=23) Oxacillin (test code=14) Rifampin (test code=43) Tetracycline (test code=2) Trimethoprim + Sulfamethoxazole (test code=47) Vancomycin (test code=13) GRAM STAIN RESULT <1+ WBCs (BEAKER) (test ugvi=3454) GRAM STAIN RESULT No organisms seen (BEAKER) (test vefz=412042) POCT-GLUCOSE [id number] 13:22:00 Test Item Value Reference Range Comments POC-GLUCOSE METER (BEAKER) 103 mg/dL 70-110 TESTED AT [facility] [address] (test tcee=5462) [facility] [address] POCT-GLUCOSE [id number] 12:44:00 Test Item Value Reference Range Comments POC-GLUCOSE METER (BEAKER) 66 mg/dL 70-110 Notified PERLA BARROW/TESTED AT [facility] (test sowv=1221) [address] [facility] [address] BRONCHIAL CULTURE + GRAM [id number] 11:47:00 Test Item Value Reference Range Comments CULTURE (BEAKER) (test 1+ Normal respiratory morelia cebe=3972) present GRAM STAIN RESULT (BEAKER) 1+ WBCs (test cykh=7459) GRAM STAIN RESULT (BEAKER) No organisms seen (test uqmh=18436) RAD, CHEST, 1 VIEW, NON [id number] 11:17:00Reason for exam:->s/p decorticationShould this be performed [...] [facility] Radiology Reading Room POCT-GLUCOSE [id number] 08:54:00 Test Item Value Reference Range Comments POC-GLUCOSE METER (BEAKER) 194 mg/dL 70-110 TESTED AT [address] (test zwsq=8443) [facility] [address] SURGICALLY OBTAINED CULTURE + GRAM [id number] 08:42:00 Test Item Value Reference Range Comments CULTURE (BEAKER) (test xydi=5039) No growth GRAM STAIN RESULT (BEAKER) (test <1+ WBCs bqco=9452) GRAM STAIN RESULT (BEAKER) (test No organisms seen valx=57100) SURGICALLY OBTAINED CULTURE + GRAM [id number] 08:41:00 Test Item Value Reference Range Comments CULTURE (BEAKER) (test bxsq=4375) No growth GRAM STAIN RESULT (BEAKER) (test <1+ WBCs bgxn=3840) GRAM STAIN RESULT (BEAKER) (test No organisms seen chri=88194) SURGICALLY OBTAINED CULTURE + GRAM [id number] 08:41:00 Test Item Value Reference Range Comments CULTURE (BEAKER) (test rvht=7926) No growth GRAM STAIN RESULT (BEAKER) (test <1+ WBCs sdqr=7471) GRAM STAIN RESULT (BEAKER) (test No organisms seen zoul=09358) SURGICALLY OBTAINED CULTURE + GRAM [id number] 08:40:00 Test Item Value Reference Range Comments CULTURE (BEAKER) (test tuul=5315) No growth GRAM STAIN RESULT (BEAKER) (test <1+ WBCs iwry=7546) GRAM STAIN RESULT (BEAKER) (test No organisms seen rkbb=30778) SURGICALLY OBTAINED CULTURE + GRAM [id number] 08:40:00 Test Item Value Reference Range Comments CULTURE (BEAKER) (test fvpc=3286) No growth GRAM STAIN RESULT (BEAKER) (test <1+ WBCs xpkw=5620) GRAM STAIN RESULT (BEAKER) (test No organisms seen vwgx=00349) SURGICALLY OBTAINED CULTURE + GRAM [id number] 08:40:00 Test Item Value Reference Range Comments CULTURE (BEAKER) (test alcp=5855) No growth GRAM STAIN RESULT (BEAKER) (test <1+ WBCs yjuz=3852) GRAM STAIN RESULT (BEAKER) (test No organisms seen laoe=22272) SURGICALLY OBTAINED CULTURE + GRAM [id number] 08:39:00 Test Item Value Reference Range Comments CULTURE (BEAKER) (test sgcg=4144) No growth GRAM STAIN RESULT (BEAKER) (test <1+ WBCs qsih=2708) GRAM STAIN RESULT (BEAKER) (test No organisms seen podu=07557) VANCOMYCIN LEVEL, [id number] 04:12:00 Test Item Value Reference Range Comments VANCOMYCIN RANDOM (BEAKER) (test zlgp=601) 12.7 ug/mL Reference Range: No NormalsBLOOD GAS, [id number] 04:10:00 Test Item Value Reference Range Comments PH ARTERIAL (BEAKER) (test lqbv=989) 7.36 7.35-7.45 PCO2 ARTERIAL (BEAKER) (test ncie=454) 42 mmHg 35-45 PO2 ARTERIAL (BEAKER) (test axqh=096) 199 mmHg 80-90 O2 SATURATION ARTERIAL (BEAKER) (test gczx=772) 99.3 % 96.0-97.0 HCO3 ARTERIAL (BEAKER) (test cxzb=155) 23 mmol/L 21-29 BASE EXCESS ARTERIAL (BEAKER) (test mzdu=820) -2.5 mmol/L -2.0-3.0 PATIENT TEMPERATURE (BEAKER) (test vigl=7524) 37.0 C FIO2 (BEAKER) (test lnpz=7541) 40.0 % BASIC METABOLIC [id number] 04:05:00 Test Item Value Reference Range Comments SODIUM (BEAKER) (test 142 meq/L 136-145 ofba=747) POTASSIUM (BEAKER) (test 4.4 meq/L 3.5-5.1 rhbr=870) CHLORIDE (BEAKER) (test 101 meq/L 98-107 fgfu=554) CO2 (BEAKER) (test 19 meq/L 22-29 quxk=057) BLOOD UREA NITROGEN 43 mg/dL 7-21 (BEAKER) (test cjwd=444) CREATININE (BEAKER) (test 7.14 mg/dL 0.57-1.25 puzv=538) GLUCOSE RANDOM (BEAKER) 146 mg/dL 70-105 (test gqti=954) CALCIUM (BEAKER) (test 9.2 mg/dL 8.4-10.2 sxhk=461) EGFR (BEAKER) (test 9 mL/min/1.73 sq m ESTIMATED GFR IS NOT ixlu=1589) ACCURATE CREATININE CLEARANCE IN PREDICTING GLOMERULAR FILTRATION RATE. ESTIMATED GFR IS NOT APPLICABLE FOR DIALYSIS PATIENTS. [id number] 03:51:00 Test Item Value Reference Range Comments PHOSPHORUS (BEAKER) (test tdji=220) 7.4 mg/dL 2.3-4.7 [id number] 03:51:00 Test Item Value Reference Range Comments MAGNESIUM (BEAKER) (test icjg=729) 2.5 mg/dL 1.6-2.6 [id number] 03:46:00 Test Item Value Reference Range Comments PARTIAL THROMBOPLASTIN TIME (BEAKER) (test 49.4 seconds 22.5-36.0 obwr=153) CBC W/PLT COUNT & AUTO [id number] 03:46:00 Test Item Value Reference Range Comments WHITE BLOOD CELL COUNT (BEAKER) (test tmxv=731) 14.4 K/ L 3.5-10.5 RED BLOOD CELL COUNT (BEAKER) (test kxrf=698) 3.21 M/ L 4.63-6.08 HEMOGLOBIN (BEAKER) (test zyfw=628) 8.6 GM/DL 13.7-17.5 HEMATOCRIT (BEAKER) (test wask=636) 28.6 % 40.1-51.0 MEAN CORPUSCULAR VOLUME (BEAKER) (test uiip=041) 89.1 fL 79.0-92.2 MEAN CORPUSCULAR HEMOGLOBIN (BEAKER) (test 26.8 pg 25.7-32.2 wrep=315) MEAN CORPUSCULAR HEMOGLOBIN CONC (BEAKER) (test 30.1 GM/DL 32.3-36.5 eabw=584) RED CELL DISTRIBUTION WIDTH (BEAKER) (test 17.2 % 11.6-14.4 bxqt=216) PLATELET COUNT (BEAKER) (test lhfn=349) 243 K/CU MM 150-450 MEAN PLATELET VOLUME (BEAKER) (test hmzz=631) 12.3 fL 9.4-12.4 NUCLEATED RED BLOOD CELLS (BEAKER) (test 0 /100 WBC 0-0 ymeh=548) NEUTROPHILS RELATIVE PERCENT (BEAKER) (test 80 % ozza=148) LYMPHOCYTES RELATIVE PERCENT (BEAKER) (test 7 % ftfx=218) MONOCYTES RELATIVE PERCENT (BEAKER) (test 7 % hlns=202) EOSINOPHILS RELATIVE PERCENT (BEAKER) (test 5 % nrdu=439) BASOPHILS RELATIVE PERCENT (BEAKER) (test 0 % ycwn=980) NEUTROPHILS ABSOLUTE COUNT (BEAKER) (test 11.50 K/ L 1.78-5.38 wakv=055) LYMPHOCYTES ABSOLUTE COUNT (BEAKER) (test 1.03 K/ L 1.32-3.57 grgl=647) MONOCYTES ABSOLUTE COUNT (BEAKER) (test 0.96 K/ L 0.30-0.82 jumn=162) EOSINOPHILS ABSOLUTE COUNT (BEAKER) (test 0.71 K/ L 0.04-0.54 wxdv=452) BASOPHILS ABSOLUTE COUNT (BEAKER) (test 0.06 K/ L 0.01-0.08 yqwd=862) IMMATURE GRANULOCYTES-RELATIVE PERCENT (BEAKER) 1 % 0-1 (test umsn=8700) PROTHROMBIN [id number] 03:45:00 Test Item Value Reference Range Comments PROTIME (BEAKER) (test zipq=228) 16.2 seconds 11.7-14.7 INR (BEAKER) (test lrbv=070) 1.3 <=5.9 RECOMMENDED COUMADIN/WARFARIN INR THERAPY RANGESSTANDARD DOSE: 2.0 - 3.0 Includes: PROPHYLAXIS forvenous thrombosis, systemic embolization; TREATMENT for venous thrombosis and/or pulmonary embolus.HIGH RISK: Target INR is 2.5-3.5 for patients with mechanical heart valves.POCT-GLUCOSE [id number] 23:23:00 Test Item Value Reference Range Comments POC-GLUCOSE METER (BEAKER) 123 mg/dL 70-110 TESTED AT [address] (test bzki=1749) [facility] [id number] POCT-GLUCOSE [id number] 17:45:00 Test Item Value Reference Range Comments POC-GLUCOSE METER (BEAKER) 182 mg/dL 70-110 TESTED AT [address] (test oclk=8172) [facility] [id number] POCT-GLUCOSE [id number] 12:28:00 Test Item Value Reference Range Comments POC-GLUCOSE METER (BEAKER) 159 mg/dL 70-110 TESTED AT [address] (test scnc=4159) [facility] [address] POCT-GLUCOSE [id number] 09:44:00 Test Item Value Reference Range Comments POC-GLUCOSE METER (BEAKER) 209 mg/dL 70-110 TESTED AT [address] (test uajz=3582) [facility] [address] BASIC METABOLIC [id number] 04:58:00 Test Item Value Reference Range Comments SODIUM (BEAKER) (test 140 meq/L 136-145 jcqj=448) POTASSIUM (BEAKER) (test 3.6 meq/L 3.5-5.1 trkf=066) CHLORIDE (BEAKER) (test 100 meq/L 98-107 qxaq=527) CO2 (BEAKER) (test 20 meq/L 22-29 jzdf=502) BLOOD UREA NITROGEN 27 mg/dL 7-21 (BEAKER) (test uhbk=186) CREATININE (BEAKER) (test 5.17 mg/dL 0.57-1.25 sqrr=901) GLUCOSE RANDOM (BEAKER) 160 mg/dL 70-105 (test cddk=491) CALCIUM (BEAKER) (test 9.0 mg/dL 8.4-10.2 xvme=093) EGFR (BEAKER) (test 12 mL/min/1.73 sq m ESTIMATED GFR IS NOT mcjl=2350) ACCURATE CREATININE CLEARANCE IN PREDICTING GLOMERULAR FILTRATION RATE. ESTIMATED GFR IS NOT APPLICABLE FOR DIALYSIS PATIENTS. [id number] 04:57:00 Test Item Value Reference Range Comments PHOSPHORUS (BEAKER) (test orik=220) 4.7 mg/dL 2.3-4.7 [id number] 04:57:00 Test Item Value Reference Range Comments MAGNESIUM (BEAKER) (test svbw=834) 2.3 mg/dL 1.6-2.6 RAD, CHEST, 1 VIEW, NON [id number] 04:40:00Reason for exam:->s/p thoracic surgeryShould this be [...] MDReport Verified Date/Time: 07/02 04:40:28 Reading Location: [address] Body Reading Room [id number] 04:23:00 Test Item Value Reference Range Comments PARTIAL THROMBOPLASTIN TIME (BEAKER) (test 47.6 seconds 22.5-36.0 tite=295) PROTHROMBIN [id number] 04:22:00 Test Item Value Reference Range Comments PROTIME (BEAKER) (test iewt=177) 15.7 seconds 11.7-14.7 INR (BEAKER) (test hyil=873) 1.3 <=5.9 RECOMMENDED COUMADIN/WARFARIN INR THERAPY RANGESSTANDARD DOSE: 2.0 - 3.0 Includes: PROPHYLAXIS forvenous thrombosis, systemic embolization; TREATMENT for venous thrombosis and/or pulmonary embolus.HIGH RISK: Target INR is 2.5-3.5 for patients with mechanical heart valves.CBC W/PLT COUNT & AUTO [id number] 04:20:00 Test Item Value Reference Range Comments WHITE BLOOD CELL COUNT (BEAKER) (test akcm=113) 12.3 K/ L 3.5-10.5 RED BLOOD CELL COUNT (BEAKER) (test jpzs=369) 3.28 M/ L 4.63-6.08 HEMOGLOBIN (BEAKER) (test vpxb=351) 8.7 GM/DL 13.7-17.5 HEMATOCRIT (BEAKER) (test rlxg=183) 28.1 % 40.1-51.0 MEAN CORPUSCULAR VOLUME (BEAKER) (test nkyo=857) 85.7 fL 79.0-92.2 MEAN CORPUSCULAR HEMOGLOBIN (BEAKER) (test 26.5 pg 25.7-32.2 tyql=214) MEAN CORPUSCULAR HEMOGLOBIN CONC (BEAKER) (test 31.0 GM/DL 32.3-36.5 yljc=100) RED CELL DISTRIBUTION WIDTH (BEAKER) (test 16.5 % 11.6-14.4 xjcm=375) PLATELET COUNT (BEAKER) (test lgsb=229) 243 K/CU MM 150-450 MEAN PLATELET VOLUME (BEAKER) (test ookg=267) 13.0 fL 9.4-12.4 NUCLEATED RED BLOOD CELLS (BEAKER) (test 0 /100 WBC 0-0 xsqc=371) NEUTROPHILS RELATIVE PERCENT (BEAKER) (test 76 % gjzu=315) LYMPHOCYTES RELATIVE PERCENT (BEAKER) (test 11 % bryl=592) MONOCYTES RELATIVE PERCENT (BEAKER) (test 7 % bwbc=708) EOSINOPHILS RELATIVE PERCENT (BEAKER) (test 5 % xcws=781) BASOPHILS RELATIVE PERCENT (BEAKER) (test 1 % fuiw=120) NEUTROPHILS ABSOLUTE COUNT (BEAKER) (test 9.38 K/ L 1.78-5.38 shiq=903) LYMPHOCYTES ABSOLUTE COUNT (BEAKER) (test 1.31 K/ L 1.32-3.57 rpio=092) MONOCYTES ABSOLUTE COUNT (BEAKER) (test 0.88 K/ L 0.30-0.82 uirj=614) EOSINOPHILS ABSOLUTE COUNT (BEAKER) (test 0.59 K/ L 0.04-0.54 njrt=855) BASOPHILS ABSOLUTE COUNT (BEAKER) (test 0.07 K/ L 0.01-0.08 atwa=477) IMMATURE GRANULOCYTES-RELATIVE PERCENT (BEAKER) 1 % 0-1 (test tstm=9989) BLOOD GAS, [id number] 04:02:00 Test Item Value Reference Range Comments PH ARTERIAL (BEAKER) (test tpqq=758) 7.52 7.35-7.45 PCO2 ARTERIAL (BEAKER) (test hvrr=884) 28 mmHg 35-45 PO2 ARTERIAL (BEAKER) (test wagg=042) 232 mmHg 80-90 O2 SATURATION ARTERIAL (BEAKER) (test earj=337) 99.6 % 96.0-97.0 HCO3 ARTERIAL (BEAKER) (test pqmk=706) 23 mmol/L 21-29 BASE EXCESS ARTERIAL (BEAKER) (test hlbv=003) 0.5 mmol/L -2.0-3.0 PATIENT TEMPERATURE (BEAKER) (test eeqw=5078) 37.0 C FIO2 (BEAKER) (test larl=3762) 40.0 % POCT-GLUCOSE [id number] 23:22:00 Test Item Value Reference Range Comments POC-GLUCOSE METER (BEAKER) 139 mg/dL 70-110 TESTED AT [address] (test uruc=6465) [place] [address] POCT-GLUCOSE [id number] 17:28:00 Test Item Value Reference Range Comments POC-GLUCOSE METER (BEAKER) 178 mg/dL 70-110 TESTED AT [address] (test cfqj=4252) [place] [address] POCT-GLUCOSE [id number] 12:46:00 Test Item Value Reference Range Comments POC-GLUCOSE METER (BEAKER) 255 mg/dL 70-110 TESTED AT [address] (test otsy=0050) [place] [address] BODY FLUID CULTURE + GRAM [id number] 10:59:00 Test Item Value Reference Range Comments CULTURE (BEAKER) (test upvo=7651) No growth GRAM STAIN RESULT (BEAKER) (test No White blood cells seen mdxs=1428) GRAM STAIN RESULT (BEAKER) (test No organisms seen vvhm=83363) POCT-GLUCOSE [id number] 09:09:00 Test Item Value Reference Range Comments POC-GLUCOSE METER (BEAKER) 213 mg/dL 70-110 TESTED AT [address] (test fdpf=0224) [place] [address] BASIC METABOLIC [id number] 05:51:00 Test Item Value Reference Range Comments SODIUM (BEAKER) (test 144 meq/L 136-145 esoj=770) POTASSIUM (BEAKER) (test 4.0 meq/L 3.5-5.1 ggwq=859) CHLORIDE (BEAKER) (test 102 meq/L 98-107 tymy=372) CO2 (BEAKER) (test 17 meq/L 22-29 ydpu=642) BLOOD UREA NITROGEN 13 mg/dL 7-21 (BEAKER) (test mfhf=952) CREATININE (BEAKER) (test 3.54 mg/dL 0.57-1.25 nbil=370) GLUCOSE RANDOM (BEAKER) 157 mg/dL 70-105 (test gsqd=763) CALCIUM (BEAKER) (test 8.7 mg/dL 8.4-10.2 uunh=409) EGFR (BEAKER) (test 19 mL/min/1.73 sq m ESTIMATED GFR IS NOT zzfp=3553) ACCURATE CREATININE CLEARANCE IN PREDICTING GLOMERULAR FILTRATION RATE. ESTIMATED GFR IS NOT APPLICABLE FOR DIALYSIS PATIENTS. [id number] 05:50:00 Test Item Value Reference Range Comments PHOSPHORUS (BEAKER) (test xxuw=196) 4.2 mg/dL 2.3-4.7 [id number] 05:50:00 Test Item Value Reference Range Comments MAGNESIUM (BEAKER) (test kemt=352) 2.3 mg/dL 1.6-2.6 CBC W/PLT COUNT & AUTO [id number] 05:31:00 Test Item Value Reference Range Comments WHITE BLOOD CELL COUNT (BEAKER) (test yigu=998) 12.5 K/ L 3.5-10.5 RED BLOOD CELL COUNT (BEAKER) (test dxfv=826) 3.37 M/ L 4.63-6.08 HEMOGLOBIN (BEAKER) (test foia=103) 8.9 GM/DL 13.7-17.5 HEMATOCRIT (BEAKER) (test gmsj=570) 29.0 % 40.1-51.0 MEAN CORPUSCULAR VOLUME (BEAKER) (test bftj=298) 86.1 fL 79.0-92.2 MEAN CORPUSCULAR HEMOGLOBIN (BEAKER) (test 26.4 pg 25.7-32.2 knaf=945) MEAN CORPUSCULAR HEMOGLOBIN CONC (BEAKER) (test 30.7 GM/DL 32.3-36.5 vcxg=692) RED CELL DISTRIBUTION WIDTH (BEAKER) (test 15.8 % 11.6-14.4 spzl=031) PLATELET COUNT (BEAKER) (test yghb=408) 228 K/CU MM 150-450 MEAN PLATELET VOLUME (BEAKER) (test fvzp=251) 13.0 fL 9.4-12.4 NUCLEATED RED BLOOD CELLS (BEAKER) (test 0 /100 WBC 0-0 nauw=028) NEUTROPHILS RELATIVE PERCENT (BEAKER) (test 80 % nvrw=489) LYMPHOCYTES RELATIVE PERCENT (BEAKER) (test 10 % dhno=278) MONOCYTES RELATIVE PERCENT (BEAKER) (test 7 % zvbn=987) EOSINOPHILS RELATIVE PERCENT (BEAKER) (test 2 % dgxa=719) BASOPHILS RELATIVE PERCENT (BEAKER) (test 1 % glik=620) NEUTROPHILS ABSOLUTE COUNT (BEAKER) (test 9.94 K/ L 1.78-5.38 kqas=107) LYMPHOCYTES ABSOLUTE COUNT (BEAKER) (test 1.27 K/ L 1.32-3.57 egjl=124) MONOCYTES ABSOLUTE COUNT (BEAKER) (test 0.87 K/ L 0.30-0.82 mdyp=382) EOSINOPHILS ABSOLUTE COUNT (BEAKER) (test 0.19 K/ L 0.04-0.54 sdaf=687) BASOPHILS ABSOLUTE COUNT (BEAKER) (test 0.07 K/ L 0.01-0.08 fdyq=479) IMMATURE GRANULOCYTES-RELATIVE PERCENT (BEAKER) 1 % 0-1 (test roan=9155) PROTHROMBIN [id number] 05:26:00 Test Item Value Reference Range Comments PROTIME (BEAKER) (test njrv=329) 15.4 seconds 11.7-14.7 INR (BEAKER) (test wiuf=293) 1.2 <=5.9 RECOMMENDED COUMADIN/WARFARIN INR THERAPY RANGESSTANDARD DOSE: 2.0 - 3.0 Includes: PROPHYLAXIS forvenous thrombosis, systemic embolization; TREATMENT for venous thrombosis and/or pulmonary embolus.HIGH RISK: Target INR is 2.5-3.5 for patients with mechanical heart valves.[id number] 05:26:00 Test Item Value Reference Range Comments PARTIAL THROMBOPLASTIN TIME (BEAKER) (test 38.6 seconds 22.5-36.0 yzua=288) BLOOD GAS, [id number] 04:31:00 Test Item Value Reference Range Comments PH ARTERIAL (BEAKER) (test acdk=612) 7.46 7.35-7.45 PCO2 ARTERIAL (BEAKER) (test nfbv=366) 24 mmHg 35-45 PO2 ARTERIAL (BEAKER) (test nvmf=317) 280 mmHg 80-90 O2 SATURATION ARTERIAL (BEAKER) (test lvly=711) 99.7 % 96.0-97.0 HCO3 ARTERIAL (BEAKER) (test wkkd=472) 17 mmol/L 21-29 BASE EXCESS ARTERIAL (BEAKER) (test hvlw=976) -5.8 mmol/L -2.0-3.0 PATIENT TEMPERATURE (BEAKER) (test hckq=1120) 37.0 C FIO2 (BEAKER) (test nbsa=6979) 50.0 % RAD, CHEST, 1 VIEW, NON [id number] 04:31:00Reason for exam:->s/p thoracic surgeryShould this be [...] MDReport Verified Date/Time: 07/01/2017 04:31:20 Reading Location: [address] Body Reading Room 04: 31 AMBLOOD GAS, [id number] 20:48:00 Test Item Value Reference Range Comments PH ARTERIAL (BEAKER) (test ersi=699) 7.52 7.35-7.45 PCO2 ARTERIAL (BEAKER) (test pkli=535) 26 mmHg 35-45 PO2 ARTERIAL (BEAKER) (test cvnv=577) 267 mmHg 80-90 O2 SATURATION ARTERIAL (BEAKER) (test usvv=812) 99.7 % 96.0-97.0 HCO3 ARTERIAL (BEAKER) (test lqgb=550) 21 mmol/L 21-29 BASE EXCESS ARTERIAL (BEAKER) (test kayo=164) -1.2 mmol/L -2.0-3.0 PATIENT TEMPERATURE (BEAKER) (test ywpn=4620) 37.0 C FIO2 (BEAKER) (test zvhv=2370) 50.0 % PROTHROMBIN [id number] 15:11:00 Test Item Value Reference Range Comments PROTIME (BEAKER) (test zbym=729) 15.1 seconds 11.7-14.7 INR (BEAKER) (test xiyw=859) 1.2 <=5.9 RECOMMENDED COUMADIN/WARFARIN INR THERAPY RANGESSTANDARD DOSE: 2.0 - 3.0 Includes: PROPHYLAXIS forvenous thrombosis, systemic embolization; TREATMENT for venous thrombosis and/or pulmonary embolus.HIGH RISK: Target INR is 2.5-3.5 for patients with mechanical heart valves.[id number] 15:11:00 Test Item Value Reference Range Comments PARTIAL THROMBOPLASTIN TIME (BEAKER) (test 30.9 seconds 22.5-36.0 byxf=719) RAD, CHEST, 1 VIEW, NON [id number] 15:11:00Reason for exam:->s/p thoracic surgeryShould this be [...] MDReport Verified Date/Time: 06/30/2017 15:11:38 Reading Location: [address] Reading Room CBC W/PLT COUNT & AUTO [id number] 15:01:00 Test Item Value Reference Range Comments WHITE BLOOD CELL COUNT (BEAKER) (test cjjo=581) 9.1 K/ L 3.5-10.5 RED BLOOD CELL COUNT (BEAKER) (test geax=084) 3.19 M/ L 4.63-6.08 HEMOGLOBIN (BEAKER) (test nvtx=758) 8.4 GM/DL 13.7-17.5 HEMATOCRIT (BEAKER) (test uxzi=304) 27.2 % 40.1-51.0 MEAN CORPUSCULAR VOLUME (BEAKER) (test gupo=527) 85.3 fL 79.0-92.2 MEAN CORPUSCULAR HEMOGLOBIN (BEAKER) (test 26.3 pg 25.7-32.2 ufpz=049) MEAN CORPUSCULAR HEMOGLOBIN CONC (BEAKER) (test 30.9 GM/DL 32.3-36.5 odcu=148) RED CELL DISTRIBUTION WIDTH (BEAKER) (test 14.7 % 11.6-14.4 keas=364) PLATELET COUNT (BEAKER) (test sbqr=948) 214 K/CU MM 150-450 MEAN PLATELET VOLUME (BEAKER) (test nxhs=012) 13.0 fL 9.4-12.4 NUCLEATED RED BLOOD CELLS (BEAKER) (test 0 /100 WBC 0-0 rjaj=069) NEUTROPHILS RELATIVE PERCENT (BEAKER) (test 85 % lgve=231) LYMPHOCYTES RELATIVE PERCENT (BEAKER) (test 6 % dutf=001) MONOCYTES RELATIVE PERCENT (BEAKER) (test 6 % terb=966) EOSINOPHILS RELATIVE PERCENT (BEAKER) (test 2 % pfll=823) BASOPHILS RELATIVE PERCENT (BEAKER) (test 1 % vffp=405) NEUTROPHILS ABSOLUTE COUNT (BEAKER) (test 7.68 K/ L 1.78-5.38 cegk=341) LYMPHOCYTES ABSOLUTE COUNT (BEAKER) (test 0.56 K/ L 1.32-3.57 myqk=838) MONOCYTES ABSOLUTE COUNT (BEAKER) (test 0.52 K/ L 0.30-0.82 eglp=358) EOSINOPHILS ABSOLUTE COUNT (BEAKER) (test 0.18 K/ L 0.04-0.54 lsbu=673) BASOPHILS ABSOLUTE COUNT (BEAKER) (test 0.05 K/ L 0.01-0.08 hjeg=914) IMMATURE GRANULOCYTES-RELATIVE PERCENT (BEAKER) 1 % 0-1 (test mxii=7668) BASIC METABOLIC [id number] 14:57:00 Test Item Value Reference Range Comments SODIUM (BEAKER) (test 137 meq/L 136-145 oawf=989) POTASSIUM (BEAKER) (test 5.1 meq/L 3.5-5.1 bwij=495) CHLORIDE (BEAKER) (test 99 meq/L 98-107 mcam=242) CO2 (BEAKER) (test 15 meq/L 22-29 phrp=875) BLOOD UREA NITROGEN 36 mg/dL 7-21 (BEAKER) (test mfcu=594) CREATININE (BEAKER) (test 7.10 mg/dL 0.57-1.25 woeb=057) GLUCOSE RANDOM (BEAKER) 235 mg/dL 70-105 (test abtz=628) CALCIUM (BEAKER) (test 8.8 mg/dL 8.4-10.2 ymvl=367) EGFR (BEAKER) (test 9 mL/min/1.73 sq m ESTIMATED GFR IS NOT xkhe=3532) ACCURATE CREATININE CLEARANCE IN PREDICTING GLOMERULAR FILTRATION RATE. ESTIMATED GFR IS NOT APPLICABLE FOR DIALYSIS PATIENTS. [id number] 14:54:00 Test Item Value Reference Range Comments MAGNESIUM (BEAKER) (test fgjp=841) 2.1 mg/dL 1.6-2.6 BLOOD GAS, [id number] 14:28:00 Test Item Value Reference Range Comments PH ARTERIAL (BEAKER) (test lgwt=972) 7.53 7.35-7.45 PCO2 ARTERIAL (BEAKER) (test wujh=500) 21 mmHg 35-45 PO2 ARTERIAL (BEAKER) (test drfj=900) 336 mmHg 80-90 O2 SATURATION ARTERIAL (BEAKER) (test usit=356) 99.8 % 96.0-97.0 HCO3 ARTERIAL (BEAKER) (test nusj=898) 17 mmol/L 21-29 BASE EXCESS ARTERIAL (BEAKER) (test htkn=228) -5.0 mmol/L -2.0-3.0 PATIENT TEMPERATURE (BEAKER) (test ooqj=5750) 36.1 C FIO2 (BEAKER) (test mekd=2566) 60.0 % BLOOD GAS, [id number] 10:25:00 Test Item Value Reference Range Comments PH ARTERIAL (BEAKER) (test ylyr=609) 7.50 7.35-7.45 PCO2 ARTERIAL (BEAKER) (test qjyg=954) 31 mmHg 35-45 PO2 ARTERIAL (BEAKER) (test xydw=595) 570 mmHg 80-90 O2 SATURATION ARTERIAL (BEAKER) (test enwf=825) 99.9 % 96.0-97.0 HCO3 ARTERIAL (BEAKER) (test misf=260) 24 mmol/L 21-29 BASE EXCESS ARTERIAL (BEAKER) (test mwqg=982) 0.5 mmol/L -2.0-3.0 PATIENT TEMPERATURE (BEAKER) (test lvvd=1613) 34.6 C FIO2 (BEAKER) (test bnoi=0653) 100.0 % SODIUM NA-STAT [id number] 10:25:00 Test Item Value Reference Range Comments SODIUM (BEAKER) (test mudo=458) 134 meq/L 135-148 GLUCOSE-STAT [id number] 10:25:00 Test Item Value Reference Range Comments GLUCOSE RANDOM (BEAKER) (test xqie=017) 193 mg/dL 70-110 HGB/HCT (H&H) - STAT [id number] 10:25:00 Test Item Value Reference Range Comments HEMOGLOBIN (BEAKER) (test irun=522) 9.8 g/dL 13.0-16.8 HEMATOCRIT (BEAKER) (test fzjr=961) 29.0 % 40.0-50.0 POTASSIUM-STAT [id number] 10:23:00 Test Item Value Reference Range Comments POTASSIUM (BEAKER) (test eozd=438) 4.5 meq/L 3.6-5.5 POCT-GLUCOSE [id number] 07:34:00 Test Item Value Reference Range Comments POC-GLUCOSE METER (BEAKER) 163 mg/dL 70-110 TESTED AT [facility] [address] [facility] (test sfdb=7617) [facility] [address] [id number] 05:59:00 Test Item Value Reference Range Comments MAGNESIUM (BEAKER) (test 2.5 mg/dL 1.6-2.6 Specimen slightly hemolyzed vpgi=687) [id number] 05:59:00 Test Item Value Reference Range Comments PHOSPHORUS (BEAKER) (test 4.5 mg/dL 2.3-4.7 Specimen slightly hemolyzed irgn=517) BASIC METABOLIC [id number] 05:59:00 Test Item Value Reference Range Comments SODIUM (BEAKER) (test 137 meq/L 136-145 amqv=930) POTASSIUM (BEAKER) (test 4.9 meq/L 3.5-5.1 Specimen slightly wwls=373) hemolyzed CHLORIDE (BEAKER) (test 97 meq/L 98-107 npxi=803) CO2 (BEAKER) (test 22 meq/L 22-29 enhv=477) BLOOD UREA NITROGEN 33 mg/dL 7-21 (BEAKER) (test ghsf=160) CREATININE (BEAKER) (test 6.63 mg/dL 0.57-1.25 Specimen slightly blwj=749) hemolyzed GLUCOSE RANDOM (BEAKER) 173 mg/dL 70-105 (test lvvz=015) CALCIUM (BEAKER) (test 9.3 mg/dL 8.4-10.2 yckm=680) EGFR (BEAKER) (test 9 mL/min/1.73 sq m ESTIMATED GFR IS NOT kqjh=7825) ACCURATE CREATININE CLEARANCE IN PREDICTING GLOMERULAR FILTRATION RATE. ESTIMATED GFR IS NOT APPLICABLE FOR DIALYSIS PATIENTS. CBC W/PLT COUNT & AUTO [id number] 05:56:00 Test Item Value Reference Range Comments WHITE BLOOD CELL COUNT (BEAKER) (test kjne=973) 8.2 K/ L 3.5-10.5 RED BLOOD CELL COUNT (BEAKER) (test bvgo=931) 3.86 M/ L 4.63-6.08 HEMOGLOBIN (BEAKER) (test mzwi=167) 10.3 GM/DL 13.7-17.5 HEMATOCRIT (BEAKER) (test uexv=260) 33.3 % 40.1-51.0 MEAN CORPUSCULAR VOLUME (BEAKER) (test dotr=375) 86.3 fL 79.0-92.2 MEAN CORPUSCULAR HEMOGLOBIN (BEAKER) (test 26.7 pg 25.7-32.2 pqzr=157) MEAN CORPUSCULAR HEMOGLOBIN CONC (BEAKER) (test 30.9 GM/DL 32.3-36.5 cmpv=986) RED CELL DISTRIBUTION WIDTH (BEAKER) (test 14.8 % 11.6-14.4 dsbg=667) PLATELET COUNT (BEAKER) (test fgjx=310) 251 K/CU MM 150-450 MEAN PLATELET VOLUME (BEAKER) (test buzo=130) 12.8 fL 9.4-12.4 NUCLEATED RED BLOOD CELLS (BEAKER) (test 0 /100 WBC 0-0 eurb=651) NEUTROPHILS RELATIVE PERCENT (BEAKER) (test 63 % ybwa=761) LYMPHOCYTES RELATIVE PERCENT (BEAKER) (test 18 % hctq=503) MONOCYTES RELATIVE PERCENT (BEAKER) (test 8 % zmrv=245) EOSINOPHILS RELATIVE PERCENT (BEAKER) (test 9 % simq=370) BASOPHILS RELATIVE PERCENT (BEAKER) (test 1 % dmkk=092) NEUTROPHILS ABSOLUTE COUNT (BEAKER) (test 5.19 K/ L 1.78-5.38 mskx=497) LYMPHOCYTES ABSOLUTE COUNT (BEAKER) (test 1.50 K/ L 1.32-3.57 qwqg=968) MONOCYTES ABSOLUTE COUNT (BEAKER) (test 0.65 K/ L 0.30-0.82 adzb=522) EOSINOPHILS ABSOLUTE COUNT (BEAKER) (test 0.70 K/ L 0.04-0.54 howx=171) BASOPHILS ABSOLUTE COUNT (BEAKER) (test 0.11 K/ L 0.01-0.08 poxe=888) IMMATURE GRANULOCYTES-RELATIVE PERCENT (BEAKER) 1 % 0-1 (test kwde=1228) POCT-GLUCOSE [id number] 21:18:00 Test Item Value Reference Range Comments POC-GLUCOSE METER (BEAKER) 194 mg/dL 70-110 TESTED AT [facility] [address] [facility] (test ovds=6805) [facility] [address] RAD, CHEST, 1 VIEW, NON [id number] 19:48:00Reason for exam:->chest tube removalReason for exam:->chest [...] MDReport Verified Date/Time: 06/29/2017 19:48:42 Reading Location: [address] Reading Room POCT-GLUCOSE [id number] 17:25:00 Test Item Value Reference Range Comments POC-GLUCOSE METER (BEAKER) 166 mg/dL 70-110 TESTED AT [address] (test jeji=0407) [place] [address] [id number] 09:50:00 Test Item Value Reference Range Comments PROTIME (BEAKER) (test dgli=009) 13.1 seconds 11.7-14.7 INR (BEAKER) (test ciap=136) 1.0 <=5.9 PARTIAL THROMBOPLASTIN TIME (BEAKER) (test 29.4 seconds 22.5-36.0 qdpj=569) RECOMMENDED COUMADIN/WARFARIN INR THERAPY RANGESSTANDARD DOSE: 2.0 - 3.0 Includes: PROPHYLAXIS forvenous thrombosis, systemic embolization; TREATMENT for venous thrombosis and/or pulmonary embolus.HIGH RISK: Target INR is 2.5-3.5 for patients with mechanical heart valves.POCT-GLUCOSE [id number] 07:13:00 Test Item Value Reference Range Comments POC-GLUCOSE METER (BEAKER) 132 mg/dL 70-110 TESTED AT [address] (test swps=6466) [place] [id number] BASIC METABOLIC [id number] 04:59:00 Test Item Value Reference Range Comments SODIUM (BEAKER) (test 139 meq/L 136-145 hutw=502) POTASSIUM (BEAKER) (test 4.1 meq/L 3.5-5.1 nzhj=819) CHLORIDE (BEAKER) (test 100 meq/L 98-107 ujju=343) CO2 (BEAKER) (test 26 meq/L 22-29 yiit=499) BLOOD UREA NITROGEN 17 mg/dL 7-21 (BEAKER) (test qrkz=406) CREATININE (BEAKER) (test 4.77 mg/dL 0.57-1.25 vujk=833) GLUCOSE RANDOM (BEAKER) 114 mg/dL 70-105 (test ireg=158) CALCIUM (BEAKER) (test 8.7 mg/dL 8.4-10.2 eofu=984) EGFR (BEAKER) (test 14 mL/min/1.73 sq m ESTIMATED GFR IS NOT oyrj=0654) ACCURATE CREATININE CLEARANCE IN PREDICTING GLOMERULAR FILTRATION RATE. ESTIMATED GFR IS NOT APPLICABLE FOR DIALYSIS PATIENTS. [id number] 04:54:00 Test Item Value Reference Range Comments PHOSPHORUS (BEAKER) (test mjmd=755) 3.2 mg/dL 2.3-4.7 [id number] 04:54:00 Test Item Value Reference Range Comments MAGNESIUM (BEAKER) (test wkfv=477) 2.0 mg/dL 1.6-2.6 CBC W/PLT COUNT & AUTO [id number] 04:35:00 Test Item Value Reference Range Comments WHITE BLOOD CELL COUNT (BEAKER) (test ejnn=982) 8.1 K/ L 3.5-10.5 RED BLOOD CELL COUNT (BEAKER) (test smed=768) 3.48 M/ L 4.63-6.08 HEMOGLOBIN (BEAKER) (test nxfr=623) 9.4 GM/DL 13.7-17.5 HEMATOCRIT (BEAKER) (test ermq=399) 30.4 % 40.1-51.0 MEAN CORPUSCULAR VOLUME (BEAKER) (test puyj=742) 87.4 fL 79.0-92.2 MEAN CORPUSCULAR HEMOGLOBIN (BEAKER) (test 27.0 pg 25.7-32.2 vojd=083) MEAN CORPUSCULAR HEMOGLOBIN CONC (BEAKER) (test 30.9 GM/DL 32.3-36.5 zfct=282) RED CELL DISTRIBUTION WIDTH (BEAKER) (test 14.6 % 11.6-14.4 tcec=684) PLATELET COUNT (BEAKER) (test fxcg=053) 196 K/CU MM 150-450 MEAN PLATELET VOLUME (BEAKER) (test orpm=522) 12.7 fL 9.4-12.4 NUCLEATED RED BLOOD CELLS (BEAKER) (test 0 /100 WBC 0-0 jflz=458) NEUTROPHILS RELATIVE PERCENT (BEAKER) (test 63 % fbut=136) LYMPHOCYTES RELATIVE PERCENT (BEAKER) (test 18 % hupj=680) MONOCYTES RELATIVE PERCENT (BEAKER) (test 8 % asmo=083) EOSINOPHILS RELATIVE PERCENT (BEAKER) (test 9 % ojtl=273) BASOPHILS RELATIVE PERCENT (BEAKER) (test 1 % halh=337) NEUTROPHILS ABSOLUTE COUNT (BEAKER) (test 5.11 K/ L 1.78-5.38 jgie=575) LYMPHOCYTES ABSOLUTE COUNT (BEAKER) (test 1.44 K/ L 1.32-3.57 dvvv=555) MONOCYTES ABSOLUTE COUNT (BEAKER) (test 0.67 K/ L 0.30-0.82 yqch=387) EOSINOPHILS ABSOLUTE COUNT (BEAKER) (test 0.72 K/ L 0.04-0.54 wyji=555) BASOPHILS ABSOLUTE COUNT (BEAKER) (test 0.10 K/ L 0.01-0.08 ldtd=387) IMMATURE GRANULOCYTES-RELATIVE PERCENT (BEAKER) 0 % 0-1 (test rofd=7617) POCT-GLUCOSE [id number] 21:16:00 Test Item Value Reference Range Comments POC-GLUCOSE METER (BEAKER) 136 mg/dL 70-110 TESTED AT [address] (test jdgp=3022) [facility] [address] BODY FLUID CELL COUNT WITH [id number] 19:37:00 Test Item Value Reference Range Comments APPEARANCE FLUID (BEAKER) (test evwo=571) Bloody Clear COLOR FLUID (BEAKER) (test kjbp=021) Red Colorless, Straw RBC FLUID (BEAKER) (test vkrv=045) [address] /cu mm <=1 ADJUSTED WBC FLUID (BEAKER) (test chja=0679) 255 /cu mm <=5 LINING CELLS (BEAKER) (test ufay=7477) 0 /cu mm <=1 NEUTROPHILS FLUID (BEAKER) (test mpzd=0124) 5 % LYMPHS FLUID (BEAKER) (test rvpr=261) 91 % MONO/MACROPHAGE FLUID (BEAKER) (test jgao=144) 1 % EOSINOPHILS FLUID (BEAKER) (test alui=574) 2 % BASO FLUID (BEAKER) (test sial=776) 1 % CONTAINER BODY FLUID (BEAKER) (test emoa=7360) EDTA Tube PH, BODY [id number] 19:09:00 Test Item Value Reference Range Comments PH, BODY FLUID (BEAKER) (test yldu=2971) 9.00 LACTATE DEHYDROGENASE (LDH), BODY [id number] 19:06:00 Test Item Value Reference Range Comments LACTATE DEHYDROGENASE FLUID (BEAKER) 100 U/L Light's criteria identifies (test ctik=890) effusions if one or more are pre Absence of reference range indicates that normals have not been defined.Assay performance has not been validated for this type of specimen.PROTEIN, BODY [id number] 19:06:00 Test Item Value Reference Range Comments PROTEIN FLUID (BEAKER) (test 1.5 g/dL Light's criteria identifies vhqa=158) effusions if one or more are pre Absence of reference range indicates that normals have not been defined.Assay performance has not been validated for this type of specimen.GLUCOSE, BODY [id number] 19:06:00 Test Item Value Reference Range Comments GLUCOSE, BODY FLUID (BEAKER) (test rkwp=2794) 108 mg/dL 70-110 Absence of reference range indicates that normals have not been defined.Assay performance has not been validated for this type of specimen.POCT-GLUCOSE [id number] 17:15:00 Test Item Value Reference Range Comments POC-GLUCOSE METER (BEAKER) 75 mg/dL 70-110 TESTED AT [address] (test vkqh=4342) [place] [address] POCT-GLUCOSE [id number] 13:05:00 Test Item Value Reference Range Comments POC-GLUCOSE METER (BEAKER) 112 mg/dL 70-110 TESTED AT [address] (test sjfg=2839) [place] [address] HEPATITIS B SURFACE [id number] 10:55:00 Test Item Value Reference Range Comments HEPATITIS B SURFACE ANTIGEN (2) (BEAKER) (test Nonreactive Nonreactive cvkg=2671) POCT-GLUCOSE [id number] 08:37:00 Test Item Value Reference Range Comments POC-GLUCOSE METER (BEAKER) 193 mg/dL 70-110 TESTED AT [address] (test tvks=1228) [place] [address] [id number] 07:16:00 Test Item Value Reference Range Comments PHOSPHORUS (BEAKER) (test nhik=487) 5.9 mg/dL 2.3-4.7 [id number] 07:16:00 Test Item Value Reference Range Comments POTASSIUM (BEAKER) (test cxcw=222) 5.9 meq/L 3.5-5.1 BASIC METABOLIC [id number] 05:42:00 Test Item Value Reference Range Comments SODIUM (BEAKER) (test 139 meq/L 136-145 mzyn=378) POTASSIUM (BEAKER) (test 5.7 meq/L 3.5-5.1 otfo=416) CHLORIDE (BEAKER) (test 98 meq/L 98-107 gble=031) CO2 (BEAKER) (test 23 meq/L 22-29 wvkz=031) BLOOD UREA NITROGEN 38 mg/dL 7-21 (BEAKER) (test asoc=013) CREATININE (BEAKER) (test 7.91 mg/dL 0.57-1.25 lqmz=835) GLUCOSE RANDOM (BEAKER) 177 mg/dL 70-105 (test shai=223) CALCIUM (BEAKER) (test 8.6 mg/dL 8.4-10.2 ypjn=466) EGFR (BEAKER) (test 8 mL/min/1.73 sq m ESTIMATED GFR IS NOT okid=0857) ACCURATE CREATININE CLEARANCE IN PREDICTING GLOMERULAR FILTRATION RATE. ESTIMATED GFR IS NOT APPLICABLE FOR DIALYSIS PATIENTS. [id number] 05:34:00 Test Item Value Reference Range Comments PHOSPHORUS (BEAKER) (test voul=804) 5.9 mg/dL 2.3-4.7 [id number] 05:34:00 Test Item Value Reference Range Comments MAGNESIUM (BEAKER) (test dvyg=074) 2.3 mg/dL 1.6-2.6 CBC W/PLT COUNT & AUTO [id number] 05:07:00 Test Item Value Reference Range Comments WHITE BLOOD CELL COUNT (BEAKER) (test vnyl=223) 8.6 K/ L 3.5-10.5 RED BLOOD CELL COUNT (BEAKER) (test viib=883) 3.42 M/ L 4.63-6.08 HEMOGLOBIN (BEAKER) (test dkgv=750) 9.2 GM/DL 13.7-17.5 HEMATOCRIT (BEAKER) (test nhwf=651) 30.7 % 40.1-51.0 MEAN CORPUSCULAR VOLUME (BEAKER) (test kmnk=976) 89.8 fL 79.0-92.2 MEAN CORPUSCULAR HEMOGLOBIN (BEAKER) (test 26.9 pg 25.7-32.2 qvyt=900) MEAN CORPUSCULAR HEMOGLOBIN CONC (BEAKER) (test 30.0 GM/DL 32.3-36.5 tofj=968) RED CELL DISTRIBUTION WIDTH (BEAKER) (test 14.5 % 11.6-14.4 uwlq=863) PLATELET COUNT (BEAKER) (test angl=735) 213 K/CU MM 150-450 MEAN PLATELET VOLUME (BEAKER) (test lplw=135) 13.6 fL 9.4-12.4 NUCLEATED RED BLOOD CELLS (BEAKER) (test 0 /100 WBC 0-0 nsvz=896) NEUTROPHILS RELATIVE PERCENT (BEAKER) (test 71 % xqts=847) LYMPHOCYTES RELATIVE PERCENT (BEAKER) (test 13 % nyfh=154) MONOCYTES RELATIVE PERCENT (BEAKER) (test 7 % ksvg=326) EOSINOPHILS RELATIVE PERCENT (BEAKER) (test 7 % atto=419) BASOPHILS RELATIVE PERCENT (BEAKER) (test 1 % abnr=764) NEUTROPHILS ABSOLUTE COUNT (BEAKER) (test 6.11 K/ L 1.78-5.38 hgfa=394) LYMPHOCYTES ABSOLUTE COUNT (BEAKER) (test 1.15 K/ L 1.32-3.57 ngfg=755) MONOCYTES ABSOLUTE COUNT (BEAKER) (test 0.60 K/ L 0.30-0.82 tmft=668) EOSINOPHILS ABSOLUTE COUNT (BEAKER) (test 0.62 K/ L 0.04-0.54 vsia=165) BASOPHILS ABSOLUTE COUNT (BEAKER) (test 0.10 K/ L 0.01-0.08 yimk=092) IMMATURE GRANULOCYTES-RELATIVE PERCENT (BEAKER) 0 % 0-1 (test kewr=8832) CT, CHEST, WITHOUT [id number] 22:28:00FINAL REPORT CT scan of the chest. [...] Verified Date/Time: 06/27/2017 22:28 :12 Reading Location: [address] Consult Reading Room POCT-GLUCOSE [id number] 21:41:00 Test Item Value Reference Range Comments POC-GLUCOSE METER (BEAKER) 184 mg/dL 70-110 TESTED AT [address] (test msld=4516) [facility] [address] POCT-GLUCOSE [id number] 17:20:00 Test Item Value Reference Range Comments POC-GLUCOSE METER (BEAKER) 124 mg/dL 70-110 TESTED AT [address] (test cfjh=5556) [facility] [address] POCT-GLUCOSE [id number] 12:06:00 Test Item Value Reference Range Comments POC-GLUCOSE METER (BEAKER) 122 mg/dL 70-110 TESTED AT [address] (test sahm=2436) [place] [id number] HEMOGLOBIN [id number] 11:32:00 Test Item Value Reference Range Comments HEMOGLOBIN A1C (BEAKER) (test nxjr=527) 7.0 % 4.3-6.1 RAD, CHEST, 1 VIEW, NON [id number] 08:02:00Reason for exam:->Eval pleural effusionShould this be [...] Location: [facility] Radiology Reading Room [id number] 05:48:00 Test Item Value Reference Range Comments FERRITIN (BEAKER) (test nydb=944) 1317 ng/mL 5-275 VITAMIN D, [id number] 05:48:00 Test Item Value Reference Range Comments VITAMIN D 25-OH (BEAKER) (test zqpt=6747) 15.7 ng/mL 6.6-49.9 Effective 11/15/2016: Reference Range ChangeNew: 6.6-49.9 ng/mL Previous: 13.0 -47.8 ng/mLRecommended Vitamin D Target Range: 30.0-40.0 ng/mLBASIC METABOLIC [id number] 05:38:00 Test Item Value Reference Range Comments SODIUM (BEAKER) (test 140 meq/L 136-145 ymuc=982) POTASSIUM (BEAKER) (test 4.8 meq/L 3.5-5.1 eyrf=177) CHLORIDE (BEAKER) (test 100 meq/L 98-107 meit=449) CO2 (BEAKER) (test 26 meq/L 22-29 jzmz=569) BLOOD UREA NITROGEN 21 mg/dL 7-21 (BEAKER) (test eron=824) CREATININE (BEAKER) (test 5.97 mg/dL 0.57-1.25 xnjc=706) GLUCOSE RANDOM (BEAKER) 98 mg/dL 70-105 (test oprp=648) CALCIUM (BEAKER) (test 8.5 mg/dL 8.4-10.2 ctbu=733) EGFR (BEAKER) (test 10 mL/min/1.73 sq m ESTIMATED GFR IS NOT pljd=8923) ACCURATE CREATININE CLEARANCE IN PREDICTING GLOMERULAR FILTRATION RATE. ESTIMATED GFR IS NOT APPLICABLE FOR DIALYSIS PATIENTS. [id number] 05:35:00 Test Item Value Reference Range Comments PHOSPHORUS (BEAKER) (test zqur=825) 3.8 mg/dL 2.3-4.7 [id number] 05:35:00 Test Item Value Reference Range Comments MAGNESIUM (BEAKER) (test fuwi=461) 2.2 mg/dL 1.6-2.6 VANCOMYCIN LEVEL, [id number] 05:27:00 Test Item Value Reference Range Comments VANCOMYCIN RANDOM (BEAKER) (test kdkx=204) < ug/mL Reference Range: No NormalsPTH, [id number] 05:27:00 Test Item Value Reference Range Comments PARATHYROID HORMONE INTACT (BEAKER) (test 330.0 pg/mL 8.5-72.5 hthy=185) IRON, TIBC, % SAT. (WITHOUT FERRITIN)2017-06-27 05:26:00 Test Item Value Reference Range Comments IRON (BEAKER) (test ggfh=076) 35 ug/dL 40-160 TOTAL IRON BINDING CAPACITY (BEAKER) (test 121 ug/dL 250-450 tlwd=788) IRON % SATURATION (2) (BEAKER) (test yazc=2484) 29 % 20-55 CBC W/PLT COUNT & AUTO [id number] 05:05:00 Test Item Value Reference Range Comments WHITE BLOOD CELL COUNT (BEAKER) (test fnar=742) 8.8 K/ L 3.5-10.5 RED BLOOD CELL COUNT (BEAKER) (test otmz=618) 3.30 M/ L 4.63-6.08 HEMOGLOBIN (BEAKER) (test knay=652) 8.7 GM/DL 13.7-17.5 HEMATOCRIT (BEAKER) (test xxjl=876) 29.2 % 40.1-51.0 MEAN CORPUSCULAR VOLUME (BEAKER) (test aofd=627) 88.5 fL 79.0-92.2 MEAN CORPUSCULAR HEMOGLOBIN (BEAKER) (test 26.4 pg 25.7-32.2 ikhq=268) MEAN CORPUSCULAR HEMOGLOBIN CONC (BEAKER) (test 29.8 GM/DL 32.3-36.5 wazq=948) RED CELL DISTRIBUTION WIDTH (BEAKER) (test 14.6 % 11.6-14.4 kxwm=615) PLATELET COUNT (BEAKER) (test vqcl=461) 181 K/CU MM 150-450 MEAN PLATELET VOLUME (BEAKER) (test xmdz=937) 13.5 fL 9.4-12.4 NUCLEATED RED BLOOD CELLS (BEAKER) (test 0 /100 WBC 0-0 bixz=791) NEUTROPHILS RELATIVE PERCENT (BEAKER) (test 74 % yize=395) LYMPHOCYTES RELATIVE PERCENT (BEAKER) (test 12 % ghjf=072) MONOCYTES RELATIVE PERCENT (BEAKER) (test 7 % vacy=710) EOSINOPHILS RELATIVE PERCENT (BEAKER) (test 7 % hwwu=441) BASOPHILS RELATIVE PERCENT (BEAKER) (test 1 % nuqo=500) NEUTROPHILS ABSOLUTE COUNT (BEAKER) (test 6.43 K/ L 1.78-5.38 fsmh=236) LYMPHOCYTES ABSOLUTE COUNT (BEAKER) (test 1.03 K/ L 1.32-3.57 pdvj=731) MONOCYTES ABSOLUTE COUNT (BEAKER) (test 0.59 K/ L 0.30-0.82 tgzo=482) EOSINOPHILS ABSOLUTE COUNT (BEAKER) (test 0.60 K/ L 0.04-0.54 tdlu=268) BASOPHILS ABSOLUTE COUNT (BEAKER) (test 0.08 K/ L 0.01-0.08 uadm=303) IMMATURE GRANULOCYTES-RELATIVE PERCENT (BEAKER) 0 % 0-1 (test lwuv=0546) POCT-GLUCOSE [id number] 23:38:00 Test Item Value Reference Range Comments POC-GLUCOSE METER (BEAKER) 99 mg/dL 70-110 TESTED AT [address] (test johh=9343) [facility] [address] [id number] 12:02:00 Test Item Value Reference Range Comments THYROID STIMULATING HORMONE (BEAKER) (test 3.60 uIU/mL 0.35-4.94 xrog=687) BASIC METABOLIC [id number] 10:05:00 Test Item Value Reference Range Comments SODIUM (BEAKER) (test 137 meq/L 136-145 fpgv=821) POTASSIUM (BEAKER) (test 4.8 meq/L 3.5-5.1 mpdl=850) CHLORIDE (BEAKER) (test 97 meq/L 98-107 qrft=126) CO2 (BEAKER) (test 26 meq/L 22-29 lgsv=829) BLOOD UREA NITROGEN 29 mg/dL 7-21 (BEAKER) (test muil=086) CREATININE (BEAKER) (test 5.65 mg/dL 0.57-1.25 rvoz=866) GLUCOSE RANDOM (BEAKER) 194 mg/dL 70-105 (test xdzv=080) CALCIUM (BEAKER) (test 9.3 mg/dL 8.4-10.2 bvuh=928) EGFR (BEAKER) (test 11 mL/min/1.73 sq m ESTIMATED GFR IS NOT bzok=4411) ACCURATE CREATININE CLEARANCE IN PREDICTING GLOMERULAR FILTRATION RATE. ESTIMATED GFR IS NOT APPLICABLE FOR DIALYSIS PATIENTS. B-TYPE NATRIURETIC FACTOR (BNP)2017-02-23 09:58:00 Test Item Value Reference Range Comments B-TYPE NATRIURETIC PEPTIDE (BEAKER) (test 875 pg/mL 0-100 ugom=732) LIPID [id number] 09:55:00 Test Item Value Reference Range Comments TRIGLYCERIDES (BEAKER) (test qokh=650) 102 mg/dL CHOLESTEROL (BEAKER) (test wlfa=631) 166 mg/dL HDL CHOLESTEROL (BEAKER) (test fvkv=471) 55 mg/dL LDL CHOLESTEROL CALCULATED (BEAKER) (test 91 mg/dL qett=360) Triglyceride Reference Range: Low Risk <150 Borderline 150- 199 High Risk 200-499 Very High Risk >=500Cholesterol Reference Range: Low Risk <200 Borderline 200-239 High Risk > 240HDL Cholesterol Reference Range: Low Risk >=60 High Risk <40LDL Cholesterol Reference Range: Optimal <100 Near Optimal 100-129 Borderline 130-159 High 160-189 Very High >=190HEPATIC FUNCTION [id number] 09:55:00 Test Item Value Reference Range Comments TOTAL PROTEIN (BEAKER) (test pjbs=156) 7.8 gm/dL 6.0-8.3 ALBUMIN (BEAKER) (test yatl=3580) 3.9 g/dL 3.5-5.0 BILIRUBIN TOTAL (BEAKER) (test mkam=135) 0.6 mg/dL 0.2-1.2 BILIRUBIN DIRECT (BEAKER) (test oqnb=225) 0.2 mg/dL 0.1-0.5 ALKALINE PHOSPHATASE (BEAKER) (test rzuk=083) 112 U/L 40-150 AST (SGOT) (BEAKER) (test ukan=232) 12 U/L 5-34 ALT (SGPT) (BEAKER) (test gumf=932) 8 U/L 6-55 CBC W/PLT COUNT & AUTO [id number] 09:04:00 Test Item Value Reference Range Comments WHITE BLOOD CELL COUNT (BEAKER) (test vkxo=513) 8.7 K/ L 3.5-10.5 RED BLOOD CELL COUNT (BEAKER) (test szln=188) 4.15 M/ L 4.63-6.08 HEMOGLOBIN (BEAKER) (test plcp=283) 11.7 GM/DL 13.7-17.5 HEMATOCRIT (BEAKER) (test gedi=011) 35.8 % 40.1-51.0 MEAN CORPUSCULAR VOLUME (BEAKER) (test bloj=480) 86.3 fL 79.0-92.2 MEAN CORPUSCULAR HEMOGLOBIN (BEAKER) (test 28.2 pg 25.7-32.2 mzej=343) MEAN CORPUSCULAR HEMOGLOBIN CONC (BEAKER) (test 32.7 GM/DL 32.3-36.5 pchx=927) RED CELL DISTRIBUTION WIDTH (BEAKER) (test 13.2 % 11.6-14.4 ivwm=702) PLATELET COUNT (BEAKER) (test fxso=804) 174 K/CU MM 150-450 MEAN PLATELET VOLUME (BEAKER) (test iidw=392) 12.4 fL 9.4-12.4 NUCLEATED RED BLOOD CELLS (BEAKER) (test 0 /100 WBC 0-0 rhxw=821) NEUTROPHILS RELATIVE PERCENT (BEAKER) (test 65 % lwyz=016) LYMPHOCYTES RELATIVE PERCENT (BEAKER) (test 21 % wsdp=283) MONOCYTES RELATIVE PERCENT (BEAKER) (test 9 % atgs=872) EOSINOPHILS RELATIVE PERCENT (BEAKER) (test 4 % knkr=517) BASOPHILS RELATIVE PERCENT (BEAKER) (test 1 % bgov=969) NEUTROPHILS ABSOLUTE COUNT (BEAKER) (test 5.66 K/ L 1.78-5.38 uevv=824) LYMPHOCYTES ABSOLUTE COUNT (BEAKER) (test 1.78 K/ L 1.32-3.57 rshc=603) MONOCYTES ABSOLUTE COUNT (BEAKER) (test 0.80 K/ L 0.30-0.82 xtff=673) EOSINOPHILS ABSOLUTE COUNT (BEAKER) (test 0.30 K/ L 0.04-0.54 akiw=965) BASOPHILS ABSOLUTE COUNT (BEAKER) (test 0.09 K/ L 0.01-0.08 iofd=714) IMMATURE GRANULOCYTES-RELATIVE PERCENT (BEAKER) 1 % 0-1 (test xxld=7675) HLA [id number] 15:01:00 Test Item Value Reference Range Comments HLA RESULT (BEAKER) (test wflw=4810) See Scanned Report HLA-A AG1 (BEAKER) (test somu=5290) HLA-A AG2 (BEAKER) (test fzcz=1865) HLA-B AG1 (BEAKER) (test ewnu=3745) HLA-B AG2 (BEAKER) (test arir=7911) HLA-C AG1 (BEAKER) (test pkgm=2334) HLA-C AG2 (BEAKER) (test jmtf=9308) HLA-DR AG1 (BEAKER) (test ardb=2101) HLA-DR AG2 (BEAKER) (test wucy=9870) HLA-DQ AG1 (BEAKER) (test repd=2809) HLA-DQ AG2 (BEAKER) (test ljdo=4619) HLA-DRW (BEAKER) (test nmzt=2057) FLOW PRA CLASS I AND [id number] 08:31:00 Test Item Value Reference Range Comments DATE OF SERUM (BEAKER) (test fmbq=1825) [id number] SERUM # (BEAKER) (test pzih=6665) [id number] FLOW PRA CLASS I AND II (test rojl=1252) See Scanned Report VARICELLA ZOSTER ANTIBODY, [id number] 10:13:00 Test Item Value Reference Range Comments VARICELLA ZOSTER IGG (AL) (BEAKER) (test wsws=7418) 3.0 Al VARICELLA ZOSTER RESULT INTERPRETATIONS: <=0.8 Al Nonreactive: Presumed non-immune to VZV 0.9-1.0 Al Equivocal >=1.1 Al Reactive: Presumed immune to VZVCYTOMEGALOVIRUS ANTIBODY, [id number] 10:04:00 Test Item Value Reference Range Comments CYTOMEGALOVIRUS IGG ANTIBODY (BEAKER) (test Negative uftg=647) CYTOMEGALOVIRUS ANTIBODY, [id number] 10:04:00 Test Item Value Reference Range Comments CYTOMEGALOVIRUS IGM ANTIBODY (BEAKER) (test Negative bubu=511) EBV-VCA ANTIBODY, [id number] 10:04:00 Test Item Value Reference Range Comments PAULY-BOB VCA IGG (BEAKER) (test fpbt=477) Positive EBV-VCA ANTIBODY, [id number] 10:04:00 Test Item Value Reference Range Comments PAULY-BOB VCA IGM (BEAKER) (test ieqd=819) Negative URINE [id number] 13:00:00 Test Item Value Reference Range Comments CULTURE (BEAKER) (test xmvu=1612) No growth [id number] 06:05:00 Test Item Value Reference Range Comments RPR SCREEN (BEAKER) (test ydsj=763) Nonreactive Nonreactive HEMOGLOBIN [id number] 14:45:00 Test Item Value Reference Range Comments HEMOGLOBIN A1C (BEAKER) (test xdtj=429) 7.9 % 4.3-6.1 URINALYSIS W/ [id number] 11:34:00 Test Item Value Reference Range Comments COLOR (BEAKER) (test ejge=352) Yellow CLARITY (BEAKER) (test etig=601) Clear SPECIFIC GRAVITY UA (BEAKER) (test rsvu=264) 1.017 1.001-1.035 PH UA (BEAKER) (test dyrn=359) 8.5 5.0-8.0 PROTEIN UA (BEAKER) (test pzwq=893) >600 mg/dL Negative GLUCOSE UA (BEAKER) (test iqhx=368) 200 mg/dL Negative KETONES UA (BEAKER) (test bjiu=995) Negative Negative BILIRUBIN UA (BEAKER) (test kgoh=550) Negative Negative BLOOD UA (BEAKER) (test hsiu=210) Small Negative NITRITE UA (BEAKER) (test cojq=662) Negative Negative LEUKOCYTE ESTERASE UA (BEAKER) (test uhlh=621) Negative Negative UROBILINOGEN UA (BEAKER) (test mhnp=335) 0.2 mg/dL 0.2-1.0 RBC UA (BEAKER) (test dflj=114) 21 /HPF WBC UA (BEAKER) (test ajis=865) 2 /HPF HYALINE CASTS (BEAKER) (test ibxv=813) 5 /LPF SOURCE(BEAKER) (test pmav=4705) HEPATITIS B SURFACE [id number] 11:03:00 Test Item Value Reference Range Comments HEPATITIS B SURFACE ANTIGEN (2) (BEAKER) (test Nonreactive Nonreactive hfvu=5003) HEPATITIS B SURFACE [id number] 11:03:00 Test Item Value Reference Range Comments HEPATITIS B SURFACE ANTIBODY (BEAKER) (test 78.1 mIU/mL <8.0 ixiv=506) HEPATITIS B CORE ANTIBODY, [id number] 11:03:00 Test Item Value Reference Range Comments HEPATITIS B CORE IGM ANTIBODY (BEAKER) (test Nonreactive Nonreactive rqts=130) HEPATITIS C [id number] 11:03:00 Test Item Value Reference Range Comments HEPATITIS C ANTIBODY (BEAKER) (test hvwf=710) Nonreactive Nonreactive HIV-1 ANTIGEN WITH HIV-1/2 [id number] 11:03:00 Test Item Value Reference Range Comments HIV-1 ANTIGEN WITH HIV 1\\T\\2 ANTIBODY (2) Nonreactive Nonreactive (BEAKER) (test ccmv=9908) COMPREHENSIVE METABOLIC [id number] 10:45:00 Test Item Value Reference Range Comments TOTAL PROTEIN (BEAKER) 7.3 gm/dL 6.0-8.3 (test fxac=028) ALBUMIN (BEAKER) (test 3.8 g/dL 3.5-5.0 hlrn=9844) ALKALINE PHOSPHATASE 119 U/L 40-150 (BEAKER) (test xtmj=382) BILIRUBIN TOTAL (BEAKER) 0.5 mg/dL 0.2-1.2 (test yeqg=736) SODIUM (BEAKER) (test 140 meq/L 136-145 dpgh=570) POTASSIUM (BEAKER) (test 4.1 meq/L 3.5-5.1 quyx=014) CHLORIDE (BEAKER) (test 98 meq/L 98-107 rqna=144) CO2 (BEAKER) (test 34 meq/L 22-29 kxbm=291) BLOOD UREA NITROGEN 17 mg/dL 7-21 (BEAKER) (test kjrx=262) CREATININE (BEAKER) (test 5.48 mg/dL 0.57-1.25 jbyh=437) GLUCOSE RANDOM (BEAKER) 102 mg/dL 70-105 (test fgrx=115) CALCIUM (BEAKER) (test 9.4 mg/dL 8.4-10.2 gumo=359) AST (SGOT) (BEAKER) (test 13 U/L 5-34 ohsv=415) ALT (SGPT) (BEAKER) (test 8 U/L 6-55 mouh=758) EGFR (BEAKER) (test 12 mL/min/1.73 sq m ESTIMATED GFR IS NOT aixh=9024) ACCURATE CREATININE CLEARANCE IN PREDICTING GLOMERULAR FILTRATION RATE. ESTIMATED GFR IS NOT APPLICABLE FOR DIALYSIS PATIENTS. PTH, [id number] 10:33:00 Test Item Value Reference Range Comments PARATHYROID HORMONE INTACT (BEAKER) (test 335.9 pg/mL 8.5-72.5 hepw=753) URIC [id number] 10:27:00 Test Item Value Reference Range Comments URIC ACID (BEAKER) (test yckv=044) 3.8 mg/dL 2.6-7.2 [id number] 10:27:00 Test Item Value Reference Range Comments PHOSPHORUS (BEAKER) (test ymmr=891) 2.9 mg/dL 2.3-4.7 LIPID [id number] 10:27:00 Test Item Value Reference Range Comments TRIGLYCERIDES (BEAKER) (test venu=242) 79 mg/dL CHOLESTEROL (BEAKER) (test qszc=025) 156 mg/dL HDL CHOLESTEROL (BEAKER) (test odot=317) 49 mg/dL LDL CHOLESTEROL CALCULATED (BEAKER) (test 91 mg/dL mysc=892) Triglyceride Reference Range: Low Risk <150 Borderline [...] Range Comments GAMMA GLUTAMYL TRANSFERASE (BEAKER) (test dgpm=180) 32 U/L 9-64 LACTATE DEHYDROGENASE (LDH)2016-11-17 10:27:00 Test Item Value Reference Range Comments LACTATE DEHYDROGENASE (BEAKER) (test cjin=853) 252 U/L 125-220 [id number] 10:11:00 Test Item Value Reference Range Comments PROTIME (BEAKER) (test qzjt=161) 14.3 seconds 11.7-14.7 INR (BEAKER) (test ytja=232) 1.1 <=5.9 PARTIAL THROMBOPLASTIN TIME (BEAKER) (test 32.2 seconds 22.5-36.0 mvwx=493) RECOMMENDED COUMADIN/WARFARIN INR THERAPY RANGESSTANDARD DOSE: 2.0 - 3.0 Includes: PROPHYLAXIS forvenous thrombosis, systemic embolization; TREATMENT for venous thrombosis and/or pulmonary embolus.HIGH RISK: Target INR is 2.5-3.5 for patients with mechanical heart valves.CBC W/PLT COUNT & AUTO [id number] 10:05:00 Test Item Value Reference Range Comments WHITE BLOOD CELL COUNT (BEAKER) (test keys=384) 7.0 K/ L 3.5-10.5 RED BLOOD CELL COUNT (BEAKER) (test wqyw=506) 4.06 M/ L 4.63-6.08 HEMOGLOBIN (BEAKER) (test lmnd=013) 11.5 GM/DL 13.7-17.5 HEMATOCRIT (BEAKER) (test escm=407) 36.6 % 40.1-51.0 MEAN CORPUSCULAR VOLUME (BEAKER) (test jcub=419) 90.1 fL 79.0-92.2 MEAN CORPUSCULAR HEMOGLOBIN (BEAKER) (test 28.3 pg 25.7-32.2 mqos=717) MEAN CORPUSCULAR HEMOGLOBIN CONC (BEAKER) (test 31.4 GM/DL 32.3-36.5 bcyg=815) RED CELL DISTRIBUTION WIDTH (BEAKER) (test 15.1 % 11.6-14.4 fuwc=888) PLATELET COUNT (BEAKER) (test dxej=890) 222 K/CU MM 150-450 MEAN PLATELET VOLUME (BEAKER) (test vzjt=837) 12.7 fL 9.4-12.4 NUCLEATED RED BLOOD CELLS (BEAKER) (test 0 /100 WBC 0-0 xfki=628) NEUTROPHILS RELATIVE PERCENT (BEAKER) (test 61 % hloo=679) LYMPHOCYTES RELATIVE PERCENT (BEAKER) (test 24 % jmsz=413) MONOCYTES RELATIVE PERCENT (BEAKER) (test 9 % zeoq=484) EOSINOPHILS RELATIVE PERCENT (BEAKER) (test 6 % qriq=097) BASOPHILS RELATIVE PERCENT (BEAKER) (test 1 % qego=015) NEUTROPHILS ABSOLUTE COUNT (BEAKER) (test 4.23 K/ L 1.78-5.38 gerh=795) LYMPHOCYTES ABSOLUTE COUNT (BEAKER) (test 1.66 K/ L 1.32-3.57 crft=225) MONOCYTES ABSOLUTE COUNT (BEAKER) (test 0.62 K/ L 0.30-0.82 qcjr=375) EOSINOPHILS ABSOLUTE COUNT (BEAKER) (test 0.40 K/ L 0.04-0.54 rfrb=426) BASOPHILS ABSOLUTE COUNT (BEAKER) (test 0.08 K/ L 0.01-0.08 uafi=907) IMMATURE GRANULOCYTES-RELATIVE PERCENT (BEAKER) 0 % 0-1 (test oxkz=9921) OCCULT BLOOD, [id number] 23:03:00 Test Item Value Reference Range Comments FECAL OCCULT BLOOD (BEAKER) (test ytkd=860) Negative Negative OCCULT BLOOD, [id number] 23:03:00 Test Item Value Reference Range Comments FECAL OCCULT BLOOD (BEAKER) (test oswa=170) Negative Negative PET, CARDIAC PERFUSION MULTIPLE STUDIES, REST AND [id number] 14:10: 00Reason for Exam:->ESRD/KIDNEY TRANSPLANT EVALFINAL REPORT PROCEDURE: Rest/Stress MYOCARDIAL PERFUSION PET with regadenoson\\ XA9\\ CPT CODE: 41132 INDICATION: End-stage renal disease, preoperative evaluation for [...] Normal extracardiac tracer distribution. 6. No previous [facility] study for comparison. NONINVASIVE RISK STRATIFICATION: The above findings are considered low risk(<1% annual mortality rate) based on the following criterion:- Normal or small myocardial perfusion defect at rest or with stress( JACC. 2012;59(9):857-81.) Signed: Nicolas Kimble Verified Date/Time: 14:10:21 Reading Location: [address] Reading Room [place], CYSTOGRAM, CINE OR VIDEO, [id number] 13:04:00Reason for Exam:->kidney transplant evaluationFINAL REPORT VCUG: [...] noted. Impression: Normal VCUG Signed: Kevin Almanza MDReport Verified Date/Time: 10/11/2016 13:04:21 Reading Location: [facility] C013X [facility] Consult Reading Room Electronically signed by: KEVIN ALMANZA M.D. on 2016 01:04 PMVARICELLA ZOSTER ANTIBODY, [id number] 16:40:00 Test Item Value Reference Range Comments VARICELLA ZOSTER IGG (AL) (BEAKER) (test kwmc=8626) 2.8 Al VARICELLA ZOSTER RESULT INTERPRETATIONS: <=0.8 Al Nonreactive: Presumed non-immune to VZV 0.9-1.0 Al Equivocal >=1.1 Al Reactive: Presumed immune to VZVCYTOMEGALOVIRUS ANTIBODY, [id number] 06:52:00 Test Item Value Reference Range Comments CYTOMEGALOVIRUS IGG ANTIBODY (BEAKER) (test Negative lrvf=176) CYTOMEGALOVIRUS ANTIBODY, [id number] 06:52:00 Test Item Value Reference Range Comments CYTOMEGALOVIRUS IGM ANTIBODY (BEAKER) (test Negative eaou=583) EBV-VCA ANTIBODY, [id number] 06:52:00 Test Item Value Reference Range Comments PAULY-BOB VCA IGG (BEAKER) (test ycxn=466) Positive EBV-VCA ANTIBODY, [id number] 06:52:00 Test Item Value Reference Range Comments PAULY-BOB VCA IGM (BEAKER) (test igfq=644) Negative URINE [id number] 12:59:00 Test Item Value Reference Range Comments CULTURE (BEAKER) (test ysbx=1050) No growth HEPATITIS B SURFACE [id number] 13:18:00 Test Item Value Reference Range Comments HEPATITIS B SURFACE ANTIGEN Reactive Nonreactive Reactive Hepatitis B Surface (2) (BEAKER) (test Antigen result; Confirmed by fkuk=2889) Hepatitis B Surface Antigen Neutralization testing. [id number] 11:51:00 Test Item Value Reference Range Comments RPR SCREEN (BEAKER) (test wtbr=720) Nonreactive Nonreactive HEMOGLOBIN [id number] 11:05:00 Test Item Value Reference Range Comments HEMOGLOBIN A1C (BEAKER) (test zwcl=797) 8.2 % 4.3-6.1 HEPATITIS B SURFACE [id number] 10:37:00 Test Item Value Reference Range Comments HEPATITIS B SURFACE ANTIBODY (BEAKER) (test < mIU/mL <8.0 xmej=334) PTH, [id number] 10:24:00 Test Item Value Reference Range Comments PARATHYROID HORMONE INTACT (BEAKER) (test 424.7 pg/mL 8.5-72.5 xjke=068) Effective 12/23/2013: Reference Range ChangeNew: 8.5-72.5 Previous: 15.0- 90.0URINALYSIS W/ [id number] 10:19:00 Test Item Value Reference Range Comments COLOR (BEAKER) (test piev=990) Yellow CLARITY (BEAKER) (test gfwz=578) Clear SPECIFIC GRAVITY UA (BEAKER) (test ojrz=554) 1.013 1.001-1.035 PH UA (BEAKER) (test pzza=565) 7.5 5.0-8.0 PROTEIN UA (BEAKER) (test lqqi=885) 600 mg/dL Negative GLUCOSE UA (BEAKER) (test fxrk=725) >1000 mg/dL Negative KETONES UA (BEAKER) (test drhl=976) Negative Negative BILIRUBIN UA (BEAKER) (test ruqw=883) Negative Negative BLOOD UA (BEAKER) (test kcna=201) Moderate Negative NITRITE UA (BEAKER) (test qzpq=610) Negative Negative LEUKOCYTE ESTERASE UA (BEAKER) (test fgeh=763) Negative Negative UROBILINOGEN UA (BEAKER) (test zrev=444) 0.2 mg/dL 0.2-1.0 RBC UA (BEAKER) (test lcfz=851) 9 /HPF WBC UA (BEAKER) (test rvtr=352) 3 /HPF HYALINE CASTS (BEAKER) (test kzjb=899) 2 /LPF SOURCE(BEAKER) (test rkvh=3800) HEPATITIS B CORE ANTIBODY, [id number] 09:46:00 Test Item Value Reference Range Comments HEPATITIS B CORE IGM ANTIBODY (BEAKER) (test Nonreactive Nonreactive gjuw=645) HEPATITIS C [id number] 09:46:00 Test Item Value Reference Range Comments HEPATITIS C ANTIBODY (BEAKER) (test qzzl=851) Nonreactive Nonreactive HIV-1 ANTIGEN WITH HIV-1/2 [id number] 09:46:00 Test Item Value Reference Range Comments HIV-1 ANTIGEN WITH HIV 1\\T\\2 ANTIBODY (2) Nonreactive Nonreactive (BEAKER) (test alxh=5502) COMPREHENSIVE METABOLIC [id number] 09:33:00 Test Item Value Reference Range Comments TOTAL PROTEIN (BEAKER) 6.5 gm/dL 6.0-8.3 (test ogsa=781) ALBUMIN (BEAKER) (test 3.4 g/dL 3.5-5.0 gwfl=9390) ALKALINE PHOSPHATASE 97 U/L 40-150 (BEAKER) (test pmlm=713) BILIRUBIN TOTAL (BEAKER) 0.5 mg/dL 0.2-1.2 (test tdzt=243) SODIUM (BEAKER) (test 136 meq/L 136-145 ylfn=852) POTASSIUM (BEAKER) (test 3.1 meq/L 3.5-5.1 gyef=495) CHLORIDE (BEAKER) (test 97 meq/L 98-107 gbto=075) CO2 (BEAKER) (test 28 meq/L 22-29 vbjl=833) BLOOD UREA NITROGEN 31 mg/dL 7-21 (BEAKER) (test tzyr=047) CREATININE (BEAKER) (test 5.55 mg/dL 0.57-1.25 jpkl=230) GLUCOSE RANDOM (BEAKER) 226 mg/dL 70-105 (test qful=282) CALCIUM (BEAKER) (test 8.5 mg/dL 8.4-10.2 nxww=036) AST (SGOT) (BEAKER) (test 14 U/L 5-34 rkay=297) ALT (SGPT) (BEAKER) (test 8 U/L 6-55 iwoh=547) EGFR (BEAKER) (test 11 mL/min/1.73 sq m ESTIMATED GFR IS NOT wqas=3089) ACCURATE CREATININE CLEARANCE IN PREDICTING GLOMERULAR FILTRATION RATE. ESTIMATED GFR IS NOT APPLICABLE FOR DIALYSIS PATIENTS. [id number] 09:30:00 Test Item Value Reference Range Comments PROTIME (BEAKER) (test erhi=296) 13.7 seconds 11.7-14.7 INR (BEAKER) (test maff=918) 1.1 <=5.9 PARTIAL THROMBOPLASTIN TIME (BEAKER) (test 28.7 seconds 22.5-36.0 uipu=185) RECOMMENDED COUMADIN/WARFARIN INR THERAPY RANGESSTANDARD DOSE: 2.0 - 3.0 Includes: PROPHYLAXIS forvenous thrombosis, systemic embolization; TREATMENT for venous thrombosis and/or pulmonary embolus.HIGH RISK: Target INR is 2.5-3.5 for patients with mechanical heart valves.URIC [id number] 09:27:00 Test Item Value Reference Range Comments URIC ACID (BEAKER) (test jvzi=211) 3.9 mg/dL 2.6-7.2 [id number] 09:27:00 Test Item Value Reference Range Comments PHOSPHORUS (BEAKER) (test qerb=084) 3.9 mg/dL 2.3-4.7 GAMMA GLUTAMYL TRANSFERASE (GGT)2016-08-16 09:27:00 Test Item Value Reference Range Comments GAMMA GLUTAMYL TRANSFERASE (BEAKER) (test nhlr=631) 34 U/L 9-64 LACTATE DEHYDROGENASE (LDH)2016-08-16 09:27:00 Test Item Value Reference Range Comments LACTATE DEHYDROGENASE (BEAKER) (test qrxj=946) 237 U/L 125-220 CBC W/PLT COUNT & AUTO [id number] 09:23:00 Test Item Value Reference Range Comments WHITE BLOOD CELL COUNT (BEAKER) (test joph=917) 7.3 K/ L 4.0-10.0 RED BLOOD CELL COUNT (BEAKER) (test fbkj=594) 4.49 M/ L 4.20-5.80 HEMOGLOBIN (BEAKER) (test wxou=964) 13.8 GM/DL 13.0-16.8 HEMATOCRIT (BEAKER) (test lmdj=826) 41.0 % 40.0-50.0 MEAN CORPUSCULAR VOLUME (BEAKER) (test wxoa=112) 91.3 fL 82.0-98.0 MEAN CORPUSCULAR HEMOGLOBIN (BEAKER) (test 30.7 pg 27.0-33.0 sxgu=418) MEAN CORPUSCULAR HEMOGLOBIN CONC (BEAKER) (test 33.7 GM/DL 32.0-36.0 rcso=656) RED CELL DISTRIBUTION WIDTH (BEAKER) (test 15.5 % 10.3-14.2 dats=577) PLATELET COUNT (BEAKER) (test xdhi=958) 169 K/CU MM 150-430 MEAN PLATELET VOLUME (BEAKER) (test nbcj=457) 10.9 fL 6.5-10.5 NUCLEATED RED BLOOD CELLS (BEAKER) (test 0 /100 WBC 0-0 rrss=296) NEUTROPHILS RELATIVE PERCENT (BEAKER) (test 64 % duyg=711) LYMPHOCYTES RELATIVE PERCENT (BEAKER) (test 23 % epvz=245) MONOCYTES RELATIVE PERCENT (BEAKER) (test 8 % eduw=060) EOSINOPHILS RELATIVE PERCENT (BEAKER) (test 4 % wrjm=290) BASOPHILS RELATIVE PERCENT (BEAKER) (test 1 % jjkr=173) NEUTROPHILS ABSOLUTE COUNT (BEAKER) (test 4.68 K/ L 1.80-8.00 scad=080) LYMPHOCYTES ABSOLUTE COUNT (BEAKER) (test 1.66 K/ L 1.48-4.50 nwpk=635) MONOCYTES ABSOLUTE COUNT (BEAKER) (test 0.57 K/ L 0.00-1.30 jrao=988) EOSINOPHILS ABSOLUTE COUNT (BEAKER) (test 0.30 K/ L 0.00-0.50 vyxo=436) BASOPHILS ABSOLUTE COUNT (BEAKER) (test 0.06 K/ L 0.00-0.20 uzqn=112) [id number] 10:56:00 Test Item Value Reference Range Comments POC-POTASSIUM (BEAKER) (test 4.4 meq/L 3.6-5.5 TESTED AT [address] bime=8294) [facility] [address] POCT-GLUCOSE [id number] 10:52:00 Test Item Value Reference Range Comments POC-GLUCOSE METER (BEAKER) 223 mg/dL 70-110 TESTED AT [address] (test afsh=0410) [facility] [address] BUN AND [id number] 14:13:00 Test Item Value Reference Range Comments BLOOD UREA NITROGEN 36 mg/dL 7-21 (BEAKER) (test egwk=650) CREATININE (BEAKER) (test 4.50 mg/dL 0.57-1.25 gwcu=951) EGFR (BEAKER) (test 15 mL/min/1.73 sq m ESTIMATED GFR IS NOT uvyu=1838) ACCURATE CREATININE CLEARANCE IN PREDICTING GLOMERULAR FILTRATION RATE. ESTIMATED GFR IS NOT APPLICABLE FOR DIALYSIS PATIENTS. [id number] 14:03:00 Test Item Value Reference Range Comments SODIUM (BEAKER) (test xuoy=639) 139 meq/L 136-145 POTASSIUM (BEAKER) (test dskw=837) 4.2 meq/L 3.5-5.1 CHLORIDE (BEAKER) (test lxgh=565) 104 meq/L 98-107 CO2 (BEAKER) (test hnco=559) 27 meq/L 22-29 [id number] 14:00:00 Test Item Value Reference Range Comments GLUCOSE RANDOM (BEAKER) (test jlxl=873) 77 mg/dL 70-105 Effective 12/23/2013: Reference Range Change-Adult onlyNew: 70-105 Previous : [id number] 13:51:00 Test Item Value Reference Range Comments HEMOGLOBIN (BEAKER) (test utfc=857) 9.9 GM/DL 13.0-16.8 PLATELET [id number] 13:44:00 Test Item Value Reference Range Comments PLATELET COUNT (BEAKER) (test ydcc=324) 131 K/CU MM 150-430 POCT-GLUCOSE [id number] 09:51:00 Test Item Value Reference Range Comments POC-GLUCOSE METER (BEAKER) 210 mg/dL 70-110 TESTED AT [address] (test jlwz=3157) [facility] [address] POCT-GLUCOSE [id number] 07:49:00 Test Item Value Reference Range Comments POC-GLUCOSE METER (BEAKER) 214 mg/dL 70-110 TESTED AT [address] (test thqq=9640) [facility] [address] [id number] 07:19:00 Test Item Value Reference Range Comments POC-POTASSIUM (BEAKER) (test 5.1 meq/L 3.6-5.5 TESTED AT [facility] [address] lnmp=4766) [place] [address] BUN AND [id number] 12:34:00 Test Item Value Reference Range Comments BLOOD UREA NITROGEN 70 mg/dL 7-21 (BEAKER) (test fnpt=689) CREATININE (BEAKER) (test 8.17 mg/dL 0.57-1.25 wyjx=103) EGFR (BEAKER) (test 7 mL/min/1.73 sq m ESTIMATED GFR IS NOT bjmc=1331) ACCURATE CREATININE CLEARANCE IN PREDICTING GLOMERULAR FILTRATION RATE. ESTIMATED GFR IS NOT APPLICABLE FOR DIALYSIS PATIENTS. [id number] 12:34:00 Test Item Value Reference Range Comments SODIUM (BEAKER) (test crya=307) 137 meq/L 136-145 POTASSIUM (BEAKER) (test ibwz=577) 5.1 meq/L 3.5-5.1 CHLORIDE (BEAKER) (test ltfa=659) 111 meq/L 98-107 CO2 (BEAKER) (test mdlu=911) 15 meq/L 22-29 [id number] 12:29:00 Test Item Value Reference Range Comments GLUCOSE RANDOM (BEAKER) (test qxiu=873) 186 mg/dL 70-105 Effective 12/23/2013: Reference Range Change-Adult onlyNew: 70-105 Previous : [id number] 12:21:00 Test Item Value Reference Range Comments HEMOGLOBIN (BEAKER) (test amuq=144) 9.3 GM/DL 13.0-16.8 PLATELET [id number] 12:19:00 Test Item Value Reference Range Comments PLATELET COUNT (BEAKER) (test xopj=113) 254 K/CU MM 150-430
[2017-08-10] MEDS ORDERED: GLUCAGON 1 MG/VIAL IM PRN ×2 (18:57→19:00)
[2017-08-10] MEDS ORDERED: D50W 25 GM/50 ML SYRINGE IV PRN ×2 (18:57→19:00)
[2017-08-10] MEDS: INSULIN -REGULAR HUMAN 50 UNIT/0.5 ML ML SQ SCH (21:00)
[2017-08-10] MEDS: ATORVASTATIN 40 MG TAB PO SCH (21:54)
[2017-08-10] MEDS: DOXAZOSIN 2 MG TAB PO SCH (21:54)
[2017-08-10] MEDS: CARVEDILOL 6.25 MG TAB PO SCH (21:55)
[2017-08-10] MEDS: MIRTAZAPINE 15 MG TAB PO SCH (21:56)
[2017-08-10] MEDS: NEPRO SHAKE 237 ML CAN PO SCH (21:56)
[2017-08-10] MEDS: TRAMADOL HCL 50 MG TAB PO PRN (23:41)
[2017-08-11] MEDS: PIPER/TAZO/NS 2.25gm 2.25 GM/50 ML BAG IVPB SCH ×3 (01:59→17:03)
[2017-08-11 05:15] VITALS: BMI 14.7
[2017-08-11 06:25] LABS: Albumin 1.9 g/dL (3.4-5.0); Magnesium 2.2 mg/dL (1.8-2.4); Potassium 4.8 mmol/L (3.5-5.1); Prealbumin 10.7 mg/dL (20-40)
[2017-08-11 06:27] LABS: Absolute Lymphocytes (CBC) 1.2 K/uL (0.7-4.9); Absolute Neutrophil 11.4 K/uL (1.8-8.0); Basophils % 0.9 % (0-1.3); Eosinophils % 1.6 % (0-4.4); Hematocrit 31.2 % (39.6-49.0); Lymphocytes % 8.8 % (15.3-44.8); MCH 28.9 pg (27.0-35.0); MCV 87.7 fL (80-100); MPV 8.6 fL (7.6-11.3); Monocytes % 6.9 % (3.3-12.3); RBC Red Blood Cell Count 3.55 M/uL (4.33-5.43)
[2017-08-11] MEDS: INSULIN -REGULAR HUMAN 50 UNIT/0.5 ML ML SQ SCH ×4 (07:30→20:47)
[2017-08-11] MEDS ORDERED: PNEUMOCOCCAL VACCINE 0.5 ML IMVAC ONE (08:00)
[2017-08-11] MEDS: AMLODIPINE 10 MG TAB PO SCH (08:00)
[2017-08-11] MEDS: NPH (HUMAN) 100 UNITS/ML INSULIN SQ SCH ×2 (08:00→17:00)
[2017-08-11] MEDS: SEVELAMER CARBONATE 800 MG TABLET PO SCH ×3 (08:23→17:05)
[2017-08-11] MEDS: DOXAZOSIN 2 MG TAB PO SCH ×2 (08:23→20:46)
[2017-08-11] MEDS: SERTRALINE HCL 50 MG TAB PO SCH (08:24)
[2017-08-11] MEDS: CARVEDILOL 6.25 MG TAB PO SCH ×2 (10:04→20:46)
[2017-08-11] MEDS: NEPRO SHAKE 237 ML CAN PO SCH ×3 (10:04→20:45)
--- NOTE | 2017-08-11 10:47 | FAST ---
ENCOUNTER DATE AND TIME: 08/11/2017 08:00 (CDT) NAME JAH PAALCIOS DATE OF : 1975 DATE OF ADMISSION: 08/10/2017 18:14 (CDT) PHONE: AGE: 42 N# [id number] GENDER: Male ENCOUNTER PHYSICIAN: Dr. Alessandro Khan M.D. ADMISSION DIAGNOSIS: - Cardiac 09 - Cardiac Disorders () CHF. EATING: Activity did not occur on this shift EATING - SCORE: 0-UNK GROOMING: Comb/brush hair Oral care Wash, rinse, and dry face Wash, rinse, and dry hands GROOMING - STEP 1: Does the patient require assistance when grooming? Yes. GROOMING - STEP 2: Does the patient require the assistance of a helper? No. The patient only requires an assistive devic e, OR takes more than reasonable time to groom, OR there is a concern for safety as the patient groom s GROOMING - SCORE: 6-PHILLIP BATHING: Abdomen Buttocks Chest Left arm Left lower leg and foot Left upper leg Perineal area Right arm Right lower leg and foot Right upper leg BATHING - STEP 1: Does the patient require assistance when bathing? Yes. BATHING - STEP 2: Does the patient require the assistance of a helper? Yes. BATHING - STEP 3: How much assistance does the patient require from the helper? Only prior preparation such as putting bathing equipment within reach, turning on water, checking water temperature BATHING - SCORE: 5-SUP DRESSING - UPPER BODY: T-shirt/pullover shirt (four steps) ARTICLES SCORE Total number of steps: 4 DRESSING - UPPER BODY - STEP 1: Does the patient require help when dressing above the waist? Yes. DRESSING - UPPER BODY - STEP 2: Does the patient require the assistance of a helper? Yes. DRESSING - UPPER BODY - STEP 3: Does the helper touch the patient while dressing? No. DRESSING - UPPER BODY - SCORE: 5-SUP DRESSING - LOWER BODY: Elastic waist pants (three steps) Slip-on shoe - Left foot (one step) Slip-on shoe - Right foot (one step) Sock - Left foot (one step) Sock - Right foot (one step) Underwear (three steps) ARTICLES SCORE Total number of steps: 10 DRESSING - LOWER BODY - STEP 1: Does the patient require help when dressing below the waist? Yes. DRESSING - LOWER BODY - STEP 2: Does the patient require the assistance of a helper? Yes. DRESSING - LOWER BODY - STEP 3: Does the helper touch the patient while dressing? No. DRESSING - LOWER BODY - SCORE: 5-SUP TOILETING: Activity did not occur on this shift TOILETING - SCORE: 0-UNK BLADDER MANAGEMENT: Activity did not occur on this shift BLADDER MANAGEMENT - SCORE: 7-IND BOWEL MANAGEMENT: Activity did not occur on this shift BOWEL MANAGEMENT - SCORE: 7-IND TRANSFERS: BED, CHAIR, WHEELCHAIR: Activity did not occur on this shift TRANSFERS: BED, CHAIR, WHEELCHAIR - SCORE: 0-UNK TRANSFERS: TOILET: Activity did not occur on this shift TRANSFERS: TOILET - SCORE: 0-UNK TRANSFERS: SHOWER: TRANSFERS: SHOWER - STEP 1: Does the patient require assistance with shower transfers? Yes. TRANSFERS: SHOWER - STEP 2: Does the patient require the assistance of a helper? Yes. TRANSFERS: SHOWER - STEP 3: How much assistance does the patient require from the helper? Only supervision, cuing, coaxing, or he lp to set out transfer equipment or to lock brakes and/or lift foot rests TRANSFERS: SHOWER - SCORE: 5-SUP TRANSFERS: TUB: Activity did not occur on this shift TRANSFERS: TUB - SCORE: 0-UNK LOCOMOTION: WALK: Activity did not occur on this shift LOCOMOTION: WALK - SCORE: 0-UNK LOCOMOTION: WHEELCHAIR: Activity did not occur on this shift LOCOMOTION: WHEELCHAIR - SCORE: 0-UNK LOCOMOTION: STAIRS: Activity did not occur on this shift LOCOMOTION: STAIRS - SCORE: 0-UNK COMPREHENSION: COMPREHENSION: TYPE: Both COMPREHENSION - STEP 1: Does the patient require help to understand complex and abstract ideas (such as current events, finan edenilson, discharge planning, medical issues, relationships, etc)? No. COMPREHENSION - STEP 2: Does the patient need extra time, require an assistive device (such as glasses, hearing aids, or an a ugmentative communication system), OR does s/he have mild difficulty expressing complex and abstract ideas (including mild dysarthria or mild word-finding problems)? No. COMPREHENSION - SCORE: 7-IND EXPRESSION EXPRESSION: TYPE: Both EXPRESSION - STEP 1: Does the patient require help expressing complex and abstract ideas (such as current events, finances , discharge planning, medical issues, relationships, etc)? No. EXPRESSION - STEP 2: Does the patient need extra time, require an assistive device (such as augmentive communication syste m or a communication board), OR does s/he have mild difficulty expressing complex and abstract ideas (including mild dysarthria or mild word-find problems)? No. EXPRESSION - SCORE: 7-IND SOCIAL INTERACTION: SOCIAL INTERACTION - STEP 1: Does the patient require a helper to interact with others in social and therapeutic situations? No. SOCIAL INTERACTION - STEP 2: Does the patient need extra time in social situations, OR does s/he interact with staff, other patien ts, and family members ONLY in structured environments, OR does s/he require medication for social in teraction? No. SOCIAL INTERACTION - SCORE: 7-IND PROBLEM SOLVING: PROBLEM SOLVING - STEP 1: Does the patient need help to solve complex problems such as managing a checking account or confronti ng interpersonal problems? No. PROBLEM SOLVING - STEP 2: Does the patient require extra time to make decisions or solve problems, OR does s/he have slight dif ficulty reading, initiating, or self-correcting in unfamiliar situations? No. PROBLEM SOLVING - SCORE: 7-IND MEMORY: MEMORY - STEP 1: Does the patient need help to remember frequently encountered people, daily routines, and executing r equests? No. MEMORY - STEP 2: Does the patient have slight difficulty recognizing frequently encountered people, daily routines, or executing requests without the need for repetition or using self-initiated or environmental cues to remember? No. MEMORY - SCORE: 7-IND SIGNATURE PANEL: The following modified sections: Eating - Score, Grooming - Score, Bathing - Score, Dressing - Upper Body - Score, Dressing - Lower Body - Score, Toileting - Score, Transfers: Bed, Chair, Wheelchair - S core, Transfers: Toilet - Score, Transfers: Tub - Score, Transfers: Shower - Score, Comprehension - S core, Expression - Score, Social Interaction - Score, Problem Solving - Score, Memory - Score were [e lectronically] signed by Ana Laura Carlisle OT on SunAug 11 2017 09:47:51 T-0500 (Central Daylight T karly)
--- NOTE | 2017-08-11 11:53 | FAST ---
ENCOUNTER DATE AND TIME: 08/11/2017 08:00 (CDT) NAME JAH PALACIOS DATE OF : 1975 DATE OF ADMISSION: 08/10/2017 18:14 (CDT) PHONE: AGE: 42 N# [id number] GENDER: Male ENCOUNTER PHYSICIAN: Dr. Alessandro Khan M.D. ADMISSION DIAGNOSIS: - Cardiac 09 - Cardiac Disorders () CHF. EATING: Activity did not occur on this shift EATING - SCORE: 0-UNK GROOMING: Activity did not occur on this shift GROOMING - SCORE: 0-UNK BATHING: Activity did not occur on this shift BATHING - SCORE: 0-UNK DRESSING - UPPER BODY: Activity did not occur on this shift Patient is not dressing in public clothing ARTICLES SCORE Total number of steps: 0 DRESSING - UPPER BODY - SCORE: 0-UNK DRESSING - LOWER BODY: Activity did not occur on this shift Patient is not dressing in public clothing ARTICLES SCORE Total number of steps: 0 DRESSING - LOWER BODY - SCORE: 0-UNK TOILETING: Activity did not occur on this shift TOILETING - SCORE: 0-UNK BLADDER MANAGEMENT: Activity did not occur on this shift BLADDER MANAGEMENT - SCORE: 7-IND BOWEL MANAGEMENT: Activity did not occur on this shift BOWEL MANAGEMENT - SCORE: 7-IND TRANSFERS: BED, CHAIR, WHEELCHAIR: TRANSFERS: BED, CHAIR, WHEELCHAIR - STEP 1: Does the patient require assistance with bed, chair, or wheelchair transfers? Yes. TRANSFERS: BED, CHAIR, WHEELCHAIR - STEP 2: Does the patient require the assistance of a helper? Yes. TRANSFERS: BED, CHAIR, WHEELCHAIR - STEP 3: How much assistance does the patient require from the helper? Only supervision TRANSFERS: BED, CHAIR, WHEELCHAIR - SCORE: 5-SUP TRANSFERS: TOILET: Activity did not occur on this shift TRANSFERS: TOILET - SCORE: 0-UNK TRANSFERS: SHOWER: Activity did not occur on this shift TRANSFERS: SHOWER - SCORE: 0-UNK TRANSFERS: TUB: Activity did not occur on this shift TRANSFERS: TUB - SCORE: 0-UNK LOCOMOTION: WALK: LOCOMOTION: WALK - STEP 1: Does the patient need help to walk 150 feet? Yes. LOCOMOTION: WALK - STEP 2: How much assistance does the patient require to walk a minimum of 150 feet? Only incidental help such as contact guarding or steadying LOCOMOTION: WALK - SCORE: 4-MIN LOCOMOTION: WALK - COMMENTS: Min assist w/ FWW x 250ft. w 02 1.5 LPM via nc LOCOMOTION: WHEELCHAIR: LOCOMOTION: WHEELCHAIR - STEP 1: Does the patient need help to go 150 feet in a wheelchair? Yes. LOCOMOTION: WHEELCHAIR - STEP 2: How much assistance does the patient need from the helper? Patient goes less than 150 feet - but more than 50 feet - with the assistance of only one helper LOCOMOTION: WHEELCHAIR - SCORE: 2-MAX LOCOMOTION: STAIRS: Activity did not occur on this shift LOCOMOTION: STAIRS - SCORE: 0-UNK COMPREHENSION: COMPREHENSION: TYPE: Auditory COMPREHENSION - SCORE: 0-UNK EXPRESSION EXPRESSION - SCORE: 0-UNK SOCIAL INTERACTION: SOCIAL INTERACTION - SCORE: 0-UNK PROBLEM SOLVING: PROBLEM SOLVING - SCORE: 0-UNK MEMORY: MEMORY - SCORE: 0-UNK SIGNATURE PANEL: The following modified sections: Transfers: Bed, Chair, Wheelchair - Score, Transfers: Toilet - Score , Locomotion: Walk - Score, Locomotion: Wheelchair - Score, Locomotion: Walk - Comments:, Locomotion: Stairs - Score, Comprehension - Score were [electronically] signed by Richard Chawla PT on Sat Aug 11 201 8 10:53:07 [facility]-0500 (Central Daylight Time)
[2017-08-11] MEDS ORDERED: ONDANSETRON 4 MG (ODT) TAB PO PRN (12:42)
--- NOTE | 2017-08-11 15:22 | FAST ---
SHIFT START DATE/TIME: 08/11/2017 07:00 (CDT) SHIFT END DATE/TIME: 08/11/2017 19:00 (CDT) NAME JAH PALACIOS DATE OF : 1975 DATE OF ADMISSION: 08/10/2017 18:14 (CDT) PHONE: AGE: 42 N# [id number] GENDER: Male ENCOUNTER PHYSICIAN: Dr. Alessandro Khan M.D. ADMISSION DIAGNOSIS: - Cardiac 09 - Cardiac Disorders () CHF. EATING: EATING - STEP 1: Does the patient require assistance when eating? Yes. EATING - STEP 2: Does the patient require the assistance of a helper? No, patient only requires an assistive device, O R s/he takes more than reasonable time to eat, OR there is a safety concern, OR s/he requires modifie d food consistency EATING - SCORE: 6-PHILLIP GROOMING: Activity did not occur on this shift GROOMING - SCORE: 0-UNK BATHING: Activity did not occur on this shift BATHING - SCORE: 0-UNK DRESSING - UPPER BODY: Activity did not occur on this shift ARTICLES SCORE Total number of steps: 0 DRESSING - UPPER BODY - SCORE: 0-UNK DRESSING - LOWER BODY: Activity did not occur on this shift ARTICLES SCORE Total number of steps: 0 DRESSING - LOWER BODY - SCORE: 0-UNK TOILETING: TOILETING - STEP 1: Does the patient require assistance with toileting? Yes. TOILETING - STEP 2: Does the patient require the assistance of a helper? Yes. TOILETING - STEP 3: How much assistance does the patient require from the helper? Only supervision TOILETING - SCORE: 5-SUP BLADDER MANAGEMENT: Patient is on renal dialysis or peritoneal dialysis and no voiding activity BLADDER MANAGEMENT - SCORE: 7-IND BLADDER MANAGEMENT - FREQUENCY OF ACCIDENTS: BLADDER MANAGEMENT(FA) - STEP 1: How many accidents has the patient had during the current shift? 0 BOWEL MANAGEMENT: Activity did not occur on this shift BOWEL MANAGEMENT - SCORE: 7-IND BOWEL MANAGEMENT - FREQUENCY OF ACCIDENTS: BOWEL MANAGEMENT(FA) - STEP 1: How many accidents has the patient had during the current shift? 0 TRANSFERS: BED, CHAIR, WHEELCHAIR: TRANSFERS: BED, CHAIR, WHEELCHAIR - STEP 1: Does the patient require assistance with bed, chair, or wheelchair transfers? Yes. TRANSFERS: BED, CHAIR, WHEELCHAIR - STEP 2: Does the patient require the assistance of a helper? Yes. TRANSFERS: BED, CHAIR, WHEELCHAIR - STEP 3: How much assistance does the patient require from the helper? Only supervision TRANSFERS: BED, CHAIR, WHEELCHAIR - SCORE: 5-SUP TRANSFERS: TOILET: TRANSFERS: TOILET - STEP 1: Does the patient require assistance with toilet transfers? Yes. TRANSFERS: TOILET - STEP 2: Does the patient require the assistance of a helper? Yes. TRANSFERS: TOILET - STEP 3: How much assistance does the patient require from the helper? Patient performs half or more of the tr ansferring tasks TRANSFERS: TOILET - STEP 4: Does the patient need only incidental help such as contact guard or steadying during toilet transfer? Yes. TRANSFERS: TOILET - SCORE: 4-MIN TRANSFERS: SHOWER: Activity did not occur on this shift TRANSFERS: SHOWER - SCORE: 0-UNK TRANSFERS: TUB: Activity did not occur on this shift TRANSFERS: TUB - SCORE: 0-UNK LOCOMOTION: WALK: Activity did not occur on this shift LOCOMOTION: WALK - SCORE: 0-UNK LOCOMOTION: WHEELCHAIR: LOCOMOTION: WHEELCHAIR - STEP 1: Does the patient need help to go 150 feet in a wheelchair? Yes. LOCOMOTION: WHEELCHAIR - STEP 2: How much assistance does the patient need from the helper? Only supervision, cuing, or coaxing LOCOMOTION: WHEELCHAIR - SCORE: 5-SUP COMPREHENSION: COMPREHENSION: TYPE: Both COMPREHENSION - STEP 1: Does the patient require help to understand complex and abstract ideas (such as current events, finan edenilson, discharge planning, medical issues, relationships, etc)? No. COMPREHENSION - STEP 2: Does the patient need extra time, require an assistive device (such as glasses, hearing aids, or an a ugmentative communication system), OR does s/he have mild difficulty expressing complex and abstract ideas (including mild dysarthria or mild word-finding problems)? No. COMPREHENSION - SCORE: 7-IND EXPRESSION EXPRESSION: TYPE: Both EXPRESSION - STEP 1: Does the patient require help expressing complex and abstract ideas (such as current events, finances , discharge planning, medical issues, relationships, etc)? No. EXPRESSION - STEP 2: Does the patient need extra time, require an assistive device (such as augmentive communication syste m or a communication board), OR does s/he have mild difficulty expressing complex and abstract ideas (including mild dysarthria or mild word-find problems)? No. EXPRESSION - SCORE: 7-IND SOCIAL INTERACTION: SOCIAL INTERACTION - STEP 1: Does the patient require a helper to interact with others in social and therapeutic situations? No. SOCIAL INTERACTION - STEP 2: Does the patient need extra time in social situations, OR does s/he interact with staff, other patien ts, and family members ONLY in structured environments, OR does s/he require medication for social in teraction? No. SOCIAL INTERACTION - SCORE: 7-IND PROBLEM SOLVING: PROBLEM SOLVING - STEP 1: Does the patient need help to solve complex problems such as managing a checking account or confronti ng interpersonal problems? No. PROBLEM SOLVING - STEP 2: Does the patient require extra time to make decisions or solve problems, OR does s/he have slight dif ficulty reading, initiating, or self-correcting in unfamiliar situations? No. PROBLEM SOLVING - SCORE: 7-IND MEMORY: MEMORY - STEP 1: Does the patient need help to remember frequently encountered people, daily routines, and executing r equests? No. MEMORY - STEP 2: Does the patient have slight difficulty recognizing frequently encountered people, daily routines, or executing requests without the need for repetition or using self-initiated or environmental cues to remember? No. MEMORY - SCORE: 7-IND SIGNATURE PANEL: The following modified sections: Eating - Score, Grooming - Score, Bathing - Score, Dressing - Upper Body - Score, Dressing - Lower Body - Score, Toileting - Score, Bladder Management - Score, Bowel Man agement - Score, Transfers: Bed, Chair, Wheelchair - Score, Transfers: Toilet - Score, Transfers: Mary Beth wer - Score, Transfers: Tub - Score, Locomotion: Walk - Score, Locomotion: Wheelchair - Score, Compre hension - Score, Expression - Score, Social Interaction - Score, Problem Solving - Score, Memory - Sc ore were [electronically] signed by Eli Ogden C.N.A. on SunAug 11 2017 14:22:18 GMT-0500 (Cent[place] Daylight Time)
[2017-08-11] MEDS: HEPARIN 5000 UNIT/ML 1 ML VIAL SQ SCH (18:25)
[2017-08-11] MEDS: ATORVASTATIN 40 MG TAB PO SCH (20:46)
[2017-08-11] MEDS: MIRTAZAPINE 15 MG TAB PO SCH (20:47)
[2017-08-12] MEDS: PIPER/TAZO/NS 2.25gm 2.25 GM/50 ML BAG IVPB SCH ×3 (00:34→17:29)
--- NOTE | 2017-08-12 01:21 | PN ---
Date of Progress Note: 08/11/2017 Chief Complaint: End-stage renal disease, on dialysis. History Of Present Illness: The patient is undergoing treatment with dialysis 3 times per week. The patient is scheduled to have dialysis today. The patient is complaining of shortness of breath. Ultrafiltration will be obtained to control volemia. The patient has pneumonia, malnutrition, and is on antibiotics for pneumonia. The patient is undergoing rehab for deconditioning. The patient has a history of diabetes mellitus, is on insulin. Blood glucose is up to 246, fasting glucose 76. Review of Systems: Denies complaints. Physical Examination: Lungs: Clear to auscultation bilaterally. Heart: S1, S2. Abdomen: Soft, benign. Extremities: Minimal edema. Laboratory Data: Hemoglobin 10.3, WBC 13.9, platelet count 362,000. Sodium 137 , potassium 4.8, chloride 103, CO2 29, BUN 32, creatinine 4.3, prealbumin 10.7, albumin 1.9, magnesium 2.2, calcium 8.5. Impression And Plan: 1. End-stage renal disease. Dialysis is scheduled for today with ultrafiltration. Monitor blood pressure closely during dialysis and modify his ultrafiltration goal as needed. Plan is to hold ultrafiltration if systolic blood pressure is below 100. 2. Hypertension. Continue blood pressure medication. 3. Insulin-dependent diabetes mellitus. Continue insulin. Monitor blood glucose. Adjust treatment per sliding scale. 4. Hypoalbuminemia. Increase p.o. protein intake. 5. Renal osteodystrophy. Continue renal diet. Monitor phosphorus level. Adjust binders as needed. Monitor calcium and phosphorus level. 6. Anemia due to chronic kidney disease. Hemoglobin level is satisfactory. Monitor hemoglobin and adjust RADHIKA if hemoglobin is below 10. VIJAY/MODL Voice ID: [id number] Report ID: [id number] NICHOLAS
--- NOTE | 2017-08-12 03:04 | FAST ---
SHIFT START DATE/TIME: 08/11/2017 19:00 (CDT) SHIFT END DATE/TIME: 08/12/2017 07:00 (CDT) NAME JAH PALACIOS DATE OF : 1975 DATE OF ADMISSION: 08/10/2017 18:14 (CDT) PHONE: AGE: 42 N# [id number] GENDER: Male ENCOUNTER PHYSICIAN: Dr. Alessandro Khan M.D. ADMISSION DIAGNOSIS: - Cardiac 09 - Cardiac Disorders () CHF. EATING: Activity did not occur on this shift EATING - SCORE: 0-UNK GROOMING: Activity did not occur on this shift GROOMING - SCORE: 0-UNK BATHING: Activity did not occur on this shift BATHING - SCORE: 0-UNK DRESSING - UPPER BODY: Activity did not occur on this shift ARTICLES SCORE Total number of steps: 0 DRESSING - UPPER BODY - SCORE: 0-UNK DRESSING - LOWER BODY: Activity did not occur on this shift ARTICLES SCORE Total number of steps: 0 DRESSING - LOWER BODY - SCORE: 0-UNK TOILETING: TOILETING - STEP 1: Does the patient require assistance with toileting? Yes. TOILETING - STEP 2: Does the patient require the assistance of a helper? Yes. TOILETING - STEP 3: How much assistance does the patient require from the helper? Only supervision TOILETING - SCORE: 5-SUP BLADDER MANAGEMENT: Patient is on renal dialysis or peritoneal dialysis and no voiding activity BLADDER MANAGEMENT - SCORE: 7-IND BOWEL MANAGEMENT: Activity did not occur on this shift BOWEL MANAGEMENT - SCORE: 7-IND TRANSFERS: BED, CHAIR, WHEELCHAIR: TRANSFERS: BED, CHAIR, WHEELCHAIR - STEP 1: Does the patient require assistance with bed, chair, or wheelchair transfers? Yes. TRANSFERS: BED, CHAIR, WHEELCHAIR - STEP 2: Does the patient require the assistance of a helper? Yes. TRANSFERS: BED, CHAIR, WHEELCHAIR - STEP 3: How much assistance does the patient require from the helper? Only supervision TRANSFERS: BED, CHAIR, WHEELCHAIR - SCORE: 5-SUP TRANSFERS: TOILET: Activity did not occur on this shift TRANSFERS: TOILET - SCORE: 0-UNK TRANSFERS: SHOWER: Activity did not occur on this shift TRANSFERS: SHOWER - SCORE: 0-UNK TRANSFERS: TUB: Activity did not occur on this shift TRANSFERS: TUB - SCORE: 0-UNK LOCOMOTION: WALK: Activity did not occur on this shift LOCOMOTION: WALK - SCORE: 0-UNK LOCOMOTION: WHEELCHAIR: Activity did not occur on this shift LOCOMOTION: WHEELCHAIR - SCORE: 0-UNK COMPREHENSION: COMPREHENSION: TYPE: Both COMPREHENSION - STEP 1: Does the patient require help to understand complex and abstract ideas (such as current events, finan edenilson, discharge planning, medical issues, relationships, etc)? No. COMPREHENSION - STEP 2: Does the patient need extra time, require an assistive device (such as glasses, hearing aids, or an a ugmentative communication system), OR does s/he have mild difficulty expressing complex and abstract ideas (including mild dysarthria or mild word-finding problems)? Yes. COMPREHENSION - SCORE: 6-PHILLIP EXPRESSION EXPRESSION: TYPE: Both EXPRESSION - STEP 1: Does the patient require help expressing complex and abstract ideas (such as current events, finances , discharge planning, medical issues, relationships, etc)? No. EXPRESSION - STEP 2: Does the patient need extra time, require an assistive device (such as augmentive communication syste m or a communication board), OR does s/he have mild difficulty expressing complex and abstract ideas (including mild dysarthria or mild word-find problems)? No. EXPRESSION - SCORE: 7-IND SOCIAL INTERACTION: SOCIAL INTERACTION - STEP 1: Does the patient require a helper to interact with others in social and therapeutic situations? No. SOCIAL INTERACTION - STEP 2: Does the patient need extra time in social situations, OR does s/he interact with staff, other patien ts, and family members ONLY in structured environments, OR does s/he require medication for social in teraction? No. SOCIAL INTERACTION - SCORE: 7-IND PROBLEM SOLVING: PROBLEM SOLVING - STEP 1: Does the patient need help to solve complex problems such as managing a checking account or confronti ng interpersonal problems? No. PROBLEM SOLVING - STEP 2: Does the patient require extra time to make decisions or solve problems, OR does s/he have slight dif ficulty reading, initiating, or self-correcting in unfamiliar situations? No. PROBLEM SOLVING - SCORE: 7-IND MEMORY: MEMORY - STEP 1: Does the patient need help to remember frequently encountered people, daily routines, and executing r equests? No. MEMORY - STEP 2: Does the patient have slight difficulty recognizing frequently encountered people, daily routines, or executing requests without the need for repetition or using self-initiated or environmental cues to remember? No. MEMORY - SCORE: 7-IND
[2017-08-12] MEDS: INSULIN -REGULAR HUMAN 50 UNIT/0.5 ML ML SQ SCH ×5 (07:30→20:30)
[2017-08-12] MEDS: NEPRO SHAKE 237 ML CAN PO SCH ×2 (08:00→20:00)
[2017-08-12] MEDS: NPH (HUMAN) 100 UNITS/ML INSULIN SQ SCH ×2 (08:00→17:30)
[2017-08-12] MEDS: HEPARIN 5000 UNIT/ML 1 ML VIAL SQ SCH ×2 (08:00→20:00)
[2017-08-12] MEDS: DOXAZOSIN 2 MG TAB PO SCH ×2 (08:41→20:16)
[2017-08-12] MEDS: SEVELAMER CARBONATE 800 MG TABLET PO SCH ×3 (08:41→17:30)
[2017-08-12] MEDS: CARVEDILOL 6.25 MG TAB PO SCH ×2 (08:42→20:17)
[2017-08-12] MEDS: SERTRALINE HCL 50 MG TAB PO SCH (08:42)
[2017-08-12] MEDS: AMLODIPINE 10 MG TAB PO SCH (12:46)
--- NOTE | 2017-08-12 15:04 | FAST ---
SHIFT START DATE/TIME: 08/12/2017 07:00 (CDT) SHIFT END DATE/TIME: 08/12/2017 19:00 (CDT) NAME JAH PALACIOS DATE OF : 1975 DATE OF ADMISSION: 08/10/2017 18:14 (CDT) PHONE: AGE: 42 N# [id number] GENDER: Male ENCOUNTER PHYSICIAN: Dr. Alessandro Khan M.D. ADMISSION DIAGNOSIS: - Cardiac 09 - Cardiac Disorders () CHF. EATING: EATING - STEP 1: Does the patient require assistance when eating? Yes. EATING - STEP 2: Does the patient require the assistance of a helper? No, patient only requires an assistive device, O R s/he takes more than reasonable time to eat, OR there is a safety concern, OR s/he requires modifie d food consistency EATING - SCORE: 6-PHILLIP GROOMING: Activity did not occur on this shift GROOMING - SCORE: 0-UNK BATHING: Activity did not occur on this shift BATHING - SCORE: 0-UNK DRESSING - UPPER BODY: Activity did not occur on this shift ARTICLES SCORE Total number of steps: 0 DRESSING - UPPER BODY - SCORE: 0-UNK DRESSING - LOWER BODY: Activity did not occur on this shift ARTICLES SCORE Total number of steps: 0 DRESSING - LOWER BODY - SCORE: 0-UNK TOILETING: Activity did not occur on this shift TOILETING - SCORE: 0-UNK BLADDER MANAGEMENT: BLADDER MANAGEMENT - STEP 1: Does the patient control the bladder completely and intentionally without equipment or devices or med ications, and is always continent? No. BLADDER MANAGEMENT - STEP 2: Does the patient require the assistance of a helper? No, patient requires and independently uses an a ssistive device, such as a urinal, bedpan, bedside commode, catheter, absorbent pad, or collecting de vice BLADDER MANAGEMENT - SCORE: 6-PHILLIP BLADDER MANAGEMENT - FREQUENCY OF ACCIDENTS: BLADDER MANAGEMENT(FA) - STEP 1: How many accidents has the patient had during the current shift? 0 BOWEL MANAGEMENT: Activity did not occur on this shift BOWEL MANAGEMENT - SCORE: 7-IND BOWEL MANAGEMENT - FREQUENCY OF ACCIDENTS: BOWEL MANAGEMENT(FA) - STEP 1: How many accidents has the patient had during the current shift? 0 TRANSFERS: BED, CHAIR, WHEELCHAIR: TRANSFERS: BED, CHAIR, WHEELCHAIR - STEP 1: Does the patient require assistance with bed, chair, or wheelchair transfers? Yes. TRANSFERS: BED, CHAIR, WHEELCHAIR - STEP 2: Does the patient require the assistance of a helper? Yes. TRANSFERS: BED, CHAIR, WHEELCHAIR - STEP 3: How much assistance does the patient require from the helper? Only supervision TRANSFERS: BED, CHAIR, WHEELCHAIR - SCORE: 5-SUP TRANSFERS: TOILET: TRANSFERS: TOILET - STEP 1: Does the patient require assistance with toilet transfers? Yes. TRANSFERS: TOILET - STEP 2: Does the patient require the assistance of a helper? Yes. TRANSFERS: TOILET - STEP 3: How much assistance does the patient require from the helper? Patient performs half or more of the tr ansferring tasks TRANSFERS: TOILET - STEP 4: Does the patient need only incidental help such as contact guard or steadying during toilet transfer? Yes. TRANSFERS: TOILET - SCORE: 4-MIN TRANSFERS: SHOWER: Activity did not occur on this shift TRANSFERS: SHOWER - SCORE: 0-UNK TRANSFERS: TUB: Activity did not occur on this shift TRANSFERS: TUB - SCORE: 0-UNK LOCOMOTION: WALK: Activity did not occur on this shift LOCOMOTION: WALK - SCORE: 0-UNK LOCOMOTION: WHEELCHAIR: LOCOMOTION: WHEELCHAIR - STEP 1: Does the patient need help to go 150 feet in a wheelchair? Yes. LOCOMOTION: WHEELCHAIR - STEP 2: How much assistance does the patient need from the helper? Only supervision, cuing, or coaxing LOCOMOTION: WHEELCHAIR - SCORE: 5-SUP COMPREHENSION: COMPREHENSION: TYPE: Both COMPREHENSION - STEP 1: Does the patient require help to understand complex and abstract ideas (such as current events, finan edenilson, discharge planning, medical issues, relationships, etc)? No. COMPREHENSION - STEP 2: Does the patient need extra time, require an assistive device (such as glasses, hearing aids, or an a ugmentative communication system), OR does s/he have mild difficulty expressing complex and abstract ideas (including mild dysarthria or mild word-finding problems)? No. COMPREHENSION - SCORE: 7-IND EXPRESSION EXPRESSION: TYPE: Both EXPRESSION - STEP 1: Does the patient require help expressing complex and abstract ideas (such as current events, finances , discharge planning, medical issues, relationships, etc)? No. EXPRESSION - STEP 2: Does the patient need extra time, require an assistive device (such as augmentive communication syste m or a communication board), OR does s/he have mild difficulty expressing complex and abstract ideas (including mild dysarthria or mild word-find problems)? No. EXPRESSION - SCORE: 7-IND SOCIAL INTERACTION: SOCIAL INTERACTION - STEP 1: Does the patient require a helper to interact with others in social and therapeutic situations? No. SOCIAL INTERACTION - STEP 2: Does the patient need extra time in social situations, OR does s/he interact with staff, other patien ts, and family members ONLY in structured environments, OR does s/he require medication for social in teraction? No. SOCIAL INTERACTION - SCORE: 7-IND PROBLEM SOLVING: PROBLEM SOLVING - STEP 1: Does the patient need help to solve complex problems such as managing a checking account or confronti ng interpersonal problems? No. PROBLEM SOLVING - STEP 2: Does the patient require extra time to make decisions or solve problems, OR does s/he have slight dif ficulty reading, initiating, or self-correcting in unfamiliar situations? No. PROBLEM SOLVING - SCORE: 7-IND MEMORY: MEMORY - STEP 1: Does the patient need help to remember frequently encountered people, daily routines, and executing r equests? No. MEMORY - STEP 2: Does the patient have slight difficulty recognizing frequently encountered people, daily routines, or executing requests without the need for repetition or using self-initiated or environmental cues to remember? No. MEMORY - SCORE: 7-IND SIGNATURE PANEL: The following modified sections: Eating - Score, Grooming - Score, Bathing - Score, Dressing - Upper Body - Score, Dressing - Lower Body - Score, Toileting - Score, Bladder Management - Score, Bowel Man agement - Score, Transfers: Bed, Chair, Wheelchair - Score, Transfers: Toilet - Score, Transfers: Mary Beth wer - Score, Transfers: Tub - Score, Locomotion: Walk - Score, Locomotion: Wheelchair - Score, Compre hension - Score, Expression - Score, Social Interaction - Score, Problem Solving - Score, Memory - Sc ore, Comments: were [electronically] signed by Eli Ogden C.N.A. on SunAug 12 2017 14:04:28 GMT-0 500 (Central Daylight Time)
[2017-08-12] MEDS: MIRTAZAPINE 15 MG TAB PO SCH (20:17)
[2017-08-12] MEDS: ATORVASTATIN 40 MG TAB PO SCH (20:17)
--- NOTE | 2017-08-12 22:45 | PN ---
Date of Progress Note: 08/12/2017 Chief Complaint: The patient has multiple medical problems including failure to thrive, hypoalbumine otto, malnutrition. He was found to have severe deconditioning, pneumonia. He is undergoing treatmen t with antibiotics. He has history of diabetes. Blood glucose is fluctuating. The patient is on insulin. Review of Systems: Denies complaints. Physical Examination: Lungs: Clear to auscultation bilaterally. Heart: S1, S2. Abdomen: Soft, benign. Extremities: Minimal edema. Laboratory Data: Hemoglobin 10.3, WBC 13.9, potassium 4.8, BUN 32, creatinine 4.3, pre-albumin 10.7, magnesium 2.2, calcium 8.5, albumin 1.9. Impression And Plan: 1.End-stage renal disease. Dialysis was done yesterday with ultrafiltration. The patient is euvole juventino. Continue low-sodium diet and p.o. fluid restriction. 2.Diabetes mellitus. Continue insulin. 3.Hypoalbuminemia. Increase p.o. protein intake. Advance protein supplements. 4.Renal osteodystrophy. Monitor renal diet. Monitor phosphorus level. Adjust binders. 5.Anemia due to chronic kidney disease. Adjust RADHIKA as needed. Monitor hemoglobin level. VIJAY/LON Voice ID: [id number] Report ID: [id number]
[2017-08-13] MEDS: PIPER/TAZO/NS 2.25gm 2.25 GM/50 ML BAG IVPB SCH ×3 (00:52→17:39)
--- NOTE | 2017-08-13 03:28 | FAST ---
SHIFT START DATE/TIME: 08/12/2017 19:00 (CDT) SHIFT END DATE/TIME: 08/13/2017 07:00 (CDT) NAME JAH PALACIOS DATE OF : 1975 DATE OF ADMISSION: 08/10/2017 18:14 (CDT) PHONE: AGE: 42 N# [id number] GENDER: Male ENCOUNTER PHYSICIAN: Dr. Alessandro Khan M.D. ADMISSION DIAGNOSIS: - Cardiac 09 - Cardiac Disorders () CHF. EATING: Activity did not occur on this shift EATING - SCORE: 0-UNK GROOMING: Activity did not occur on this shift GROOMING - SCORE: 0-UNK BATHING: Activity did not occur on this shift BATHING - SCORE: 0-UNK DRESSING - UPPER BODY: Activity did not occur on this shift ARTICLES SCORE Total number of steps: 0 DRESSING - UPPER BODY - SCORE: 0-UNK DRESSING - LOWER BODY: Activity did not occur on this shift ARTICLES SCORE Total number of steps: 0 DRESSING - LOWER BODY - SCORE: 0-UNK TOILETING: Activity did not occur on this shift TOILETING - SCORE: 0-UNK BLADDER MANAGEMENT: Patient is on renal dialysis or peritoneal dialysis and no voiding activity BLADDER MANAGEMENT - SCORE: 7-IND BLADDER MANAGEMENT - FREQUENCY OF ACCIDENTS: BLADDER MANAGEMENT(FA) - STEP 1: How many accidents has the patient had during the current shift? 0 BOWEL MANAGEMENT: Activity did not occur on this shift BOWEL MANAGEMENT - SCORE: 7-IND BOWEL MANAGEMENT - FREQUENCY OF ACCIDENTS: BOWEL MANAGEMENT(FA) - STEP 1: How many accidents has the patient had during the current shift? 0 TRANSFERS: BED, CHAIR, WHEELCHAIR: TRANSFERS: BED, CHAIR, WHEELCHAIR - STEP 1: Does the patient require assistance with bed, chair, or wheelchair transfers? Yes. TRANSFERS: BED, CHAIR, WHEELCHAIR - STEP 2: Does the patient require the assistance of a helper? Yes. TRANSFERS: BED, CHAIR, WHEELCHAIR - STEP 3: How much assistance does the patient require from the helper? Only supervision TRANSFERS: BED, CHAIR, WHEELCHAIR - SCORE: 5-SUP TRANSFERS: TOILET: Activity did not occur on this shift TRANSFERS: TOILET - SCORE: 0-UNK TRANSFERS: SHOWER: Activity did not occur on this shift TRANSFERS: SHOWER - SCORE: 0-UNK TRANSFERS: TUB: Activity did not occur on this shift TRANSFERS: TUB - SCORE: 0-UNK LOCOMOTION: WALK: Activity did not occur on this shift LOCOMOTION: WALK - SCORE: 0-UNK LOCOMOTION: WHEELCHAIR: Activity did not occur on this shift LOCOMOTION: WHEELCHAIR - SCORE: 0-UNK COMPREHENSION: COMPREHENSION: TYPE: Both COMPREHENSION - STEP 1: Does the patient require help to understand complex and abstract ideas (such as current events, finan edenilson, discharge planning, medical issues, relationships, etc)? No. COMPREHENSION - STEP 2: Does the patient need extra time, require an assistive device (such as glasses, hearing aids, or an a ugmentative communication system), OR does s/he have mild difficulty expressing complex and abstract ideas (including mild dysarthria or mild word-finding problems)? Yes. COMPREHENSION - SCORE: 6-PHILLIP EXPRESSION EXPRESSION: TYPE: Both EXPRESSION - STEP 1: Does the patient require help expressing complex and abstract ideas (such as current events, finances , discharge planning, medical issues, relationships, etc)? No. EXPRESSION - STEP 2: Does the patient need extra time, require an assistive device (such as augmentive communication syste m or a communication board), OR does s/he have mild difficulty expressing complex and abstract ideas (including mild dysarthria or mild word-find problems)? No. EXPRESSION - SCORE: 7-IND SOCIAL INTERACTION: SOCIAL INTERACTION - STEP 1: Does the patient require a helper to interact with others in social and therapeutic situations? No. SOCIAL INTERACTION - STEP 2: Does the patient need extra time in social situations, OR does s/he interact with staff, other patien ts, and family members ONLY in structured environments, OR does s/he require medication for social in teraction? Yes, patient requires medication for social interaction SOCIAL INTERACTION - SCORE: 6-PHILLIP PROBLEM SOLVING: PROBLEM SOLVING - STEP 1: Does the patient need help to solve complex problems such as managing a checking account or confronti ng interpersonal problems? No. PROBLEM SOLVING - STEP 2: Does the patient require extra time to make decisions or solve problems, OR does s/he have slight dif ficulty reading, initiating, or self-correcting in unfamiliar situations? Yes, patient needs extra ti me. PROBLEM SOLVING - SCORE: 6-PHILLIP MEMORY: MEMORY - STEP 1: Does the patient need help to remember frequently encountered people, daily routines, and executing r equests? No. MEMORY - STEP 2: Does the patient have slight difficulty recognizing frequently encountered people, daily routines, or executing requests without the need for repetition or using self-initiated or environmental cues to remember? Yes. MEMORY - SCORE: 6-PHILLIP SIGNATURE PANEL: The following modified sections: Eating - Score, Grooming - Score, Bathing - Score, Dressing - Upper Body - Score, Dressing - Lower Body - Score, Toileting - Score, Bladder Management - Score, Bowel Man agement - Score, Transfers: Bed, Chair, Wheelchair - Score, Transfers: Toilet - Score, Transfers: Mary Beth wer - Score, Transfers: Tub - Score, Locomotion: Walk - Score, Locomotion: Wheelchair - Score, Compre hension - Score, Expression - Score, Social Interaction - Score, Problem Solving - Score, Memory - Sc ore were [electronically] signed by Jodi Bear RN on SunAug 13 2017 02:28:40 GMT-0500 (Centra l Daylight Time)
[2017-08-13 05:54] LABS: Absolute Lymphocytes (CBC) 1.3 K/uL (0.7-4.9); Absolute Monocytes 0.9 K/uL (0.1-1.3); Absolute Neutrophil 11.4 K/uL (1.8-8.0); Basophils % 1.1 % (0-1.3); Hematocrit 28.5 % (39.6-49.0); MCH 28.1 pg (27.0-35.0); MCV 86.8 fL (80-100); MPV 9.2 fL (7.6-11.3); Monocytes % 6.8 % (3.3-12.3); RBC Red Blood Cell Count 3.29 M/uL (4.33-5.43)
[2017-08-13 06:12] LABS: Potassium 3.9 mmol/L (3.5-5.1)
[2017-08-13] MEDS: INSULIN -REGULAR HUMAN 50 UNIT/0.5 ML ML SQ SCH ×4 (07:30→20:52)
[2017-08-13] MEDS: NEPRO SHAKE 237 ML CAN PO SCH ×2 (08:00→20:00)
[2017-08-13] MEDS: NPH (HUMAN) 100 UNITS/ML INSULIN SQ SCH ×3 (08:00→17:00)
[2017-08-13] MEDS: HEPARIN 5000 UNIT/ML 1 ML VIAL SQ SCH ×2 (08:50→20:30)
[2017-08-13] MEDS: SEVELAMER CARBONATE 800 MG TABLET PO SCH ×3 (08:52→17:38)
[2017-08-13] MEDS: DOXAZOSIN 2 MG TAB PO SCH ×2 (08:52→20:48)
[2017-08-13] MEDS: TRAMADOL HCL 50 MG TAB PO PRN (08:53)
[2017-08-13] MEDS: SERTRALINE HCL 50 MG TAB PO SCH (08:54)
[2017-08-13] MEDS: CARVEDILOL 6.25 MG TAB PO SCH ×2 (08:54→20:49)
[2017-08-13] MEDS: AMLODIPINE 10 MG TAB PO SCH (08:54)
--- NOTE | 2017-08-13 11:05 | R.HP ---
FACILITY: [facility] ENCOUNTER DATE AND TIME: 08/13/2017 10:00 (CDT) MR#: [id number] NAME JAH PALACIOS ADDRESS: [address] [place] [address] CITY: [place]IP [id number] PHONE: DATE OF : 1975 AGE: 42 SSN# [id number] GENDER: Male DEXTERITY Right-handed MARITAL STATUS Single (Never ) RACE White PRE-HOSPITAL LIVING SETTING 01 - Home (private home/apt. board/care, assisted living, detention, transitional living) PRE-HOSPITAL LIVING WITH Family/Relatives ENCOUNTER PHYSICIAN: Dr. Alessandro Khan M.D. REFERRING DOCTOR: DR. VARINDER WADDELL DATE OF ADMISSION: 08/10/2017 18:14 (CDT) REFERRING FACILITY [facility] HOME TYPE AND DETAILS: Type of home: single family house # of levels in the residence: 1 # of steps within the residence: 0 # of steps to enter the residence: 0 ADMISSION DIAGNOSIS: CHF ONSET DATE: 08/06/2017 PRIMARY DIAGNOSIS-RELATED SURGERIES: N/A SECONDARY/COMORBID DIAGNOSES (TIERED): - Tier 1 Dependence on renal dialysis [Z992] - Tier 3 Pneumonia, unspecified organism [J189] - Non-Tiered Type 2 diabetes mellitus with diabetic neuropathy, unspecified [E1140] - N/A CKD ANEMIA ESRD PLEURAL EFFUSION PNEUMONIA RENAL OSTEODYSTROPHY HYPOALBUMINEMIA HTN HISTORY OF PRESENT ILLNESS (HPI): Pt. is a 42 yo Right-handed white male. On 08/06/2017 he was admitted to [facility] with diagnosis CHF. His impairment category is Cardiac 09 - Cardiac Disorders (09). Pre-morbidly, Pt. was independent/mod-I in Communication, Social Cognition, Self-Care, Locomotion, Sp hincter Control, and Transfers Control; and he had good Sphincter Control. Currently, he has deficits of Balance, Locomotion, Endurance, Safety Awareness, Transfers Control, an d Self-Care. Pt. is now referred to [facility] for acute in-patient rehabilitation in order to maximize patient's functional independence in activities of daily living, strength, ROM, and mobi lity. Patient has realistic goal of being discharged at assistance level 6-Yayo to reside at Home with Fam facundo/Relatives. MEDICATION ALLERGIES: No Known Drug Allergies (NKDA) ENVIRONMENTAL ALLERGIES: None Known - Substance Allergies None Known - Other Allergies None Known PAST MEDICAL HISTORY: ANEMIA CKD Dependence on renal dialysis [Z992] ESRD HTN HYPOALBUMINEMIA PLEURAL EFFUSION PNEUMONIA Pneumonia, unspecified organism [J189] RENAL OSTEODYSTROPHY Type 2 diabetes mellitus with diabetic neuropathy, unspecified [E1140] PAST SURGICAL HISTORY: AV fistula creation FAMILY HISTORY: Family history is not contributory. SOCIAL HISTORY: - Home Living Family/Relatives REVIEW OF SYSTEMS: - Gen No Chills No Fatigue No Fever - Eyes No Double Vision No itchiness - ENMT No Difficulty Swallowing - CVS No Chest Discomfort No Chest Pain No Fatigue No Weight Gain - Resp No Cough No Shortness of Breath - GI Continent No Abdominal Pain No Constipation No Diarrhea - Continent No Kidney Pain No Painful Urination No Urinary Urgency - MSK No Joint Pain No Muscle Cramps Stiffness - Skin No Itching No Rash No Suspicious Lesions - Neuro Coordination Difficulty No Difficulty with Concentration No Memory Loss No Seizures Weakness - Psych No Anxiety No Depression No HIV Exposure No Persistent Infections No Seasonal Allergies - Endo No Cold/Heat Intolerance No Excessive Hunger No Excessive Thirst No Excessive Urination PHYSICAL EXAM - Gen Alert and awake Lying in bed No apparent distress Oriented to: person, time, and place - Skin No skin breakdown. Normacephalic - Eyes No abnormalities - ENMT No abnormalities - Neck No abnormalities - CVS RRR - Chest mild decrease in breath sounds - Resp Decreased at the bases bilaterally - Abd Soft - GI Non distended Deferred - No abnormalities - Ext No significant edema - MSK 4/5 weakness in both lower extremities. - Neuro 4/5 strength right upper and lower extremities. - Psych No abnormalities VITAL SIGNS Temperature: 98.1 F SBP/DBP: 150/86 Pulse: 74 Resp: 15 NURSING: - Shower allowing shower - Lab Results blood Sugar Check ACHS ACTIVITIES OOB only with supervision FUNCTIONAL STATUS: - Self-Care A. Eating Ind Ind B. Grooming Ind Yayo C. Bathing Ind sup D. Dressing - Upper Ind sup E. Dressing - Lower Ind sup F. Toileting Ind sup - Sphincter Control G: Bladder control Ind Ind H: Bowel control Ind Ind - Transfers Control I. Bed/Chair/Wheelchair Ind Luis J. Toilet Ind Luis K. Tub/Shower Ind ADNO - Locomotion L. Walk/Wheelchair (C) Ind Luis L. Walk/Wheelchair (W) Ind Luis M. Stairs Ind ADNO - Communication N. Comprehension (B) Ind Ind O. Expression (B) Ind Ind - Social Cognition P. Social Interaction Ind Ind Q. Problem Solving Ind Ind R. Memory Ind Ind - Endurance Fair - Balance Poor - Safety Awareness Fair CURRENT FUNC. DEFICITS: Balance, Locomotion, Endurance, Safety Awareness, Transfers Control, and Self-Care ASSESSMENT: Pt. is a 42 yo Right-handed white male.On 08/06/2017 he was admitted to [facility] with diagnosis CHF.His impairment category is Cardiac 09 - Cardiac Disorders ().Pre-morbidly, Pt. was independent/mod-I in Communication, Social Cognition, Self-Care, Locomotion, Sphincter Contro l, and Transfers Control; and he had good Sphincter Control.Currently, he has deficits of Balance, Lo comotion, Endurance, Safety Awareness, Transfers Control, and Self-Care.Pt. is now referred to [facility] for acute in-patient rehabilitation in order to maximize patient's functi onal independence in activities of daily living, strength, ROM, and mobility.- Rehab Goal Patient has realistic goal of being discharged at assistance level 6-Yayo to reside at Home with Fam facundo/Relatives. REHAB PLAN: - Physical Therapy Gait dysfunction - to improve, our physical therapists will perform initial evaluation of pt's status upon admission and devise an individualized program for Gait Training, and Wheel Chair mobility Inability to transfer - to improve, our physical therapists will perform initial evaluation of pt's s tatus upon admission and devise an individualized program for Bed mobility Need for home safety evaluation - to improve, our physical therapists will perform initial evaluation of pt's status upon admission and devise an individualized program for Home Evaluation Need in caregiver upon discharge - to improve, our physical therapists will perform initial evaluatio n of pt's status upon admission and devise an individualized program for Caregiver Training New precaution - to improve, our physical therapists will perform initial evaluation of pt's status u [place] admission and devise an individualized program for Patient precaution education Edema - to improve, our physical therapists will perform initial evaluation of pt's status upon admi ssion and devise an individualized program for Elevation Training, and Lymphedema Therapy Poor balance - to improve, our physical therapists will perform initial evaluation of pt's status upo n admission and devise an individualized program for Balance Training Poor endurance - to improve, our physical therapists will perform initial evaluation of pt's status u [place] admission and devise an individualized program for Endurance Training Weakness - to improve, our physical therapists will perform initial evaluation of pt's status upon ad mission and devise an individualized program for Aquatic Therapy, Neuromuscular Reeducation, and Stre ngthening Achieving independence - to improve, our physical therapists will perform initial evaluation of pt's status upon admission and devise an individualized program for Community Reintegration Activities - Occupational Therapy ADL deficits - to improve, our occupation therapists will perform initial evaluation of pt's status u [place] admission and devise an individualized program for Bathing, Bed mobility, Community Reintegration , Cooking, Dressing, Eating, Fine Motor Skills, Grooming, Homemaking, Kitchen Mobility, Laundry, Holly ent Education, Safety Awareness, Splinting - Positioning, Transfers(Toilet, Tub, Shower), and Wheel C hair Management Need for healthcare administration internship - to improve, our occupation therapists will perform initial evaluation of pt's s tatus upon admission and devise an individualized program for Caregiver Training Weakness - to improve, our occupation therapists will perform initial evaluation of pt's status upon admission and devise an individualized program for Aquatic Therapy, Balance, Endurance, UE ROM, and U E strengthening MEDICAL PLAN: - Diet Type Start ADA 2000 jung - Diet - Liquid Texture Start Regular - Tube Feed Start N/A - Lab Results blood Sugar Check ACHS - Diet - Solid Texture Regular - Shower shower DISCHARGE PLAN: - Estimated Length of Stay (days) 10. - Consensus on plan Discharge plan has been discussed with primary caregiver. Patient/Family is in agreement with the cedric n. Primary caregiver is in agreement with the plan. - Patient/Family Goals Return home with assistance. - Planned Living Setting Upon Discharge Home, to live with Family/Relatives. SIGNATURE PANEL: (CDT)
--- NOTE | 2017-08-13 11:08 | PAPE ---
PATIENT: [facility] MR# [id number] REFERRING DOCTOR DR. VARINDER WADDELL EVALUATION DATE AND TIME 08/13/2017 10:05 (CDT) NAME JAH PALACIOS DATE OF 1975 AGE 42 PHONE SSN# [id number] GENDER male EVALUATING PHYSICIAN Dr. Alessandro Khan M.D. ADMISSION DIAGNOSIS: CHF ONSET DATE 08/06/2017 SECONDARY/COMORBID DIAGNOSES TIERED: - Tier 1 Dependence on renal dialysis [Z992] - Tier 3 Pneumonia, unspecified organism [J189] - Non-Tiered Type 2 diabetes mellitus with diabetic neuropathy, unspecified [E1140] - N/A CKD ANEMIA ESRD PLEURAL EFFUSION PNEUMONIA RENAL OSTEODYSTROPHY HYPOALBUMINEMIA HTN POST-ADMISSION FUNCTIONAL/MEDICAL STATUS: - Bladder Same accident frequency: Ind - No accidents in the past 7 days - Bowel Same accident frequency: Ind - No accidents in the past 7 days - Walking Same score based on distance walked: 3(>=150ft) - Wheelchair Same score based on distance traveled: 0(N/A) STATUS CHANGE EVALUATION: No change in Functional or Medical Status is identified compared with Pre-Admission screening. PATIENT NEEDS CLOSE MEDICAL SUPERVISION BY A REHABILITATION PHYSICIAN FOR: Bowel and Bladder Management Coordination of Treatment Team Diabetes Management DVT Management Pain Management Medical and Co-Morbidity Management PATIENT REQUIRES 24X7 REHAB NURSING FOR MEDICAL AND FUNCTIONAL MGT. OF THE FOLLOWING DEFICITS: ADL's Ambulation Bowel and Bladder Management Communication Disease Management Medication Management Patient/Family Education Providing Safe Environment Transfers Pain Management PATIENT REQUIRES INTENSIVE, COORDINATED INTERDISCIPLINARY APPROACH TO REHAB: Arranging Home Equipment/Services Discharge Planning Family Intervention/Training Mis Manager/Case Management LIST OF IDENTIFIED AND POTENTIAL PROBLEMS: Alteration in leisure activities Bladder, Incontinence Bowel, Incontinence Diabetes, Hyperglycemia/hypoglycemia Issues Infection, Actual or Potential Mobility Impaired Pain, Alteration in Comfort Self Care Deficit Skin Integrity, Actual or Potential Urinary Tract Infection (UTI), Actual or Potential RISK FOR COMPLICATIONS - Pneumonia Respiratory failure. Sepsis. INTERVENTIONS - Pneumonia Cultures. Fluid management. Labs. Oxygen. Respiratory management. X-rays. PATIENT COULD BE AT RISK FOR COMPLICATIONS FROM ADVERSE MEDICAL CONDITIONS DUE TO HIS/HER COMORBIDITI ES AND THE RIGORS OF THE INTENSIVE REHABILLITATION PROGRAM. METHODS OR INTERVENTIONS TO AVOID COMPLIC ATIONS INCLUDE: - Deep Vein Thrombosis (DVT) Prophylaxis therapy for prevention . Sequential Compression Device (SCD). TE D Hose. - Infection Clinical staff to assess and manage the signs and symptoms of infection including fever, redness, war mth, etc. - Urinary Tract Infection - Falls Patient will be evaluated for Fall Precautions and will be placed on Fall Precautions as indicated pe r protocol. - Skin Breakdown Nursing will assess skin daily using assessment tool and will place on Skin Breakdown Precautions as indicated per protocol. - Pain Clinical staff may employ non-medication methods such as massage, distraction, decrease stimulus, etc . as needed. Clinical staff will assess patient's pain level every shift per protocol to assess and e nsure pain management effectiveness. Medications will be given and the pain level re-assessed. PRELIMINARY PLAN OF CARE: - Physical Therapy Patient needs Physical Therapy for a daily minimum of 1.5 hours at least 5 out of 7 days, to improve: Mobility, Strengthening, Transfers, Stretching, ROM, Endurance, Ability to manage stairs, Gait, and Balance. - Rehabilitation Nursing Patient requires 24x7 Rehabilitation Nursing for: Pain Issues, Identifying and preventing risk factor s, Monitoring and reporting current medical conditions, Assisting with ambulation and transfer, Kusum ting with all ADL-s, Teaching patients about disease process and medications, Family teaching, Provid ing safe environment, Bowel and Bladder Issues, Skin Integrity, and Medication Management. Patient needs Mis Manager and/or Case Management for: Discharge Planning, Arranging Home Equipmen t or Services, and Family Interventions. - Dietary and Nutrition Services Patient needs Dietary and Nutrition Services for: Adequate Nutrition, Nutritional Supplements, and Nu tritional Education. - Occupational Therapy Patient needs Occupational Therapy for a daily minimum of 1.5 hours at least 5 out of 7 days, to impr ove Activities of Daily Living, including: Eating, Grooming, Bathing, Dressing, Toileting, Toilet Tra nsfers, Community Reintegration, Higher functional activities, Adaptive Equipment, Splinting, Househo ld Tasks, and Other activities as determined. POTENTIAL FUNCTIONAL GOALS FOR PATIENT TO ACHIEVE BY DISCHARGE: - Safety Precaution Patient will remain free from falls or injury at time of discharge. - Bed Mobility Patient will perform bed mobility at 4-Lius level of assistance. - Transfers Patient will complete transfers from bed to chair at 4-Luis level of assistance. - Mobility Patient will ambulate 150 ft with 4-Luis level of assistance with RW. PATIENT REHAB POTENTIAL Expected level of measurable improvement will be of a practical value to patient's functional capacit y or adaptations to impairments Has a viable Discharge Plan Medically appropriate; condition is sufficiently stable to participate in intensive rehab program Patient is able and expected to receive 3 hours of individualized therapy daily on at least 5 of ever y 7 days Patient's prognosis for significant practical improvement within a reasonable period of time appears Good DISCHARGE PLAN: - Estimated Length of Stay (days) 10. - Consensus on plan Discharge plan has been discussed with primary caregiver. Patient/Family is in agreement with the cedric n. Primary caregiver is in agreement with the plan. - Patient/Family Goals Return home with assistance. - Planned Living Setting Upon Discharge Home, to live with Family/Relatives. CONCLUSION ON REHABILITATION NECESSITY: I have evaluated patient's pre-admission functional status and, comparing it to the patient's post-ad mission functional status now, I conclude that the pre-admission assessment was accurate. Patient's c ondition on admission supports the medical necessity of admission to IRF. It is safe to proceed with patient's therapy program. SIGNATURE PANEL: (CDT)
--- NOTE | 2017-08-13 16:39 | FAST ---
ENCOUNTER DATE AND TIME: 08/13/2017 08:00 (CDT) NAME JAH PALACIOS DATE OF : 1975 DATE OF ADMISSION: 08/10/2017 18:14 (CDT) PHONE: AGE: 42 N# [id number] GENDER: Male ENCOUNTER PHYSICIAN: Dr. Alessandro Khan M.D. ADMISSION DIAGNOSIS: - Cardiac 09 - Cardiac Disorders () CHF. EATING: EATING - STEP 1: Does the patient require assistance when eating? No. EATING - SCORE: 7-IND GROOMING: Comb/brush hair Wash, rinse, and dry face Wash, rinse, and dry hands GROOMING - STEP 1: Does the patient require assistance when grooming? No. GROOMING - SCORE: 7-IND BATHING: Abdomen Buttocks Chest Left arm Left lower leg and foot Left upper leg Perineal area Right arm Right lower leg and foot Right upper leg BATHING - STEP 1: Does the patient require assistance when bathing? Yes. BATHING - STEP 2: Does the patient require the assistance of a helper? No. The patient only requires an assistive devic e such as a bath mehran, OR the patient takes more than reasonable time to bathe, OR there is a concern for safety such as regulating water temperature as the patient bathes. BATHING - SCORE: 6-PHILLIP DRESSING - UPPER BODY: T-shirt/pullover shirt (four steps) ARTICLES SCORE Total number of steps: 4 DRESSING - UPPER BODY - STEP 1: Does the patient require help when dressing above the waist? No. DRESSING - UPPER BODY - SCORE: 7-IND DRESSING - LOWER BODY: ARTICLES SCORE Total number of steps: 0 DRESSING - LOWER BODY - STEP 1: Does the patient require help when dressing below the waist? Yes. DRESSING - LOWER BODY - STEP 2: Does the patient require the assistance of a helper? No. Patient requires an assistive device such as a orthopaedic physician assistant. OR s/he takes more than reasonable time as s/he dresses the lower body, OR there is a con cern for safety when s/he dresses the lower body DRESSING - LOWER BODY - SCORE: 6-PHILLIP TOILETING: TOILETING - STEP 1: Does the patient require assistance with toileting? Yes. TOILETING - STEP 2: Does the patient require the assistance of a helper? No. TOILETING - SCORE: 6-PHILLIP BLADDER MANAGEMENT: Activity did not occur on this shift BLADDER MANAGEMENT - SCORE: 7-IND BOWEL MANAGEMENT: Activity did not occur on this shift BOWEL MANAGEMENT - SCORE: 7-IND TRANSFERS: BED, CHAIR, WHEELCHAIR: Activity did not occur on this shift TRANSFERS: BED, CHAIR, WHEELCHAIR - SCORE: 0-UNK TRANSFERS: TOILET: Activity did not occur on this shift TRANSFERS: TOILET - SCORE: 0-UNK TRANSFERS: SHOWER: TRANSFERS: SHOWER - STEP 1: Does the patient require assistance with shower transfers? No. TRANSFERS: SHOWER - SCORE: 7-IND TRANSFERS: TUB: Activity did not occur on this shift TRANSFERS: TUB - SCORE: 0-UNK LOCOMOTION: WALK: Activity did not occur on this shift LOCOMOTION: WALK - SCORE: 0-UNK LOCOMOTION: WHEELCHAIR: Activity did not occur on this shift LOCOMOTION: WHEELCHAIR - SCORE: 0-UNK LOCOMOTION: STAIRS: Activity did not occur on this shift LOCOMOTION: STAIRS - SCORE: 0-UNK COMPREHENSION: COMPREHENSION: TYPE: Both COMPREHENSION - STEP 1: Does the patient require help to understand complex and abstract ideas (such as current events, finan edenilson, discharge planning, medical issues, relationships, etc)? No. COMPREHENSION - STEP 2: Does the patient need extra time, require an assistive device (such as glasses, hearing aids, or an a ugmentative communication system), OR does s/he have mild difficulty expressing complex and abstract ideas (including mild dysarthria or mild word-finding problems)? No. COMPREHENSION - SCORE: 7-IND EXPRESSION EXPRESSION: TYPE: Both EXPRESSION - STEP 1: Does the patient require help expressing complex and abstract ideas (such as current events, finances , discharge planning, medical issues, relationships, etc)? No. EXPRESSION - STEP 2: Does the patient need extra time, require an assistive device (such as augmentive communication syste m or a communication board), OR does s/he have mild difficulty expressing complex and abstract ideas (including mild dysarthria or mild word-find problems)? No. EXPRESSION - SCORE: 7-IND SOCIAL INTERACTION: SOCIAL INTERACTION - STEP 1: Does the patient require a helper to interact with others in social and therapeutic situations? No. SOCIAL INTERACTION - STEP 2: Does the patient need extra time in social situations, OR does s/he interact with staff, other patien ts, and family members ONLY in structured environments, OR does s/he require medication for social in teraction? No. SOCIAL INTERACTION - SCORE: 7-IND PROBLEM SOLVING: PROBLEM SOLVING - STEP 1: Does the patient need help to solve complex problems such as managing a checking account or confronti ng interpersonal problems? No. PROBLEM SOLVING - STEP 2: Does the patient require extra time to make decisions or solve problems, OR does s/he have slight dif ficulty reading, initiating, or self-correcting in unfamiliar situations? No. PROBLEM SOLVING - SCORE: 7-IND MEMORY: MEMORY - STEP 1: Does the patient need help to remember frequently encountered people, daily routines, and executing r equests? No. MEMORY - STEP 2: Does the patient have slight difficulty recognizing frequently encountered people, daily routines, or executing requests without the need for repetition or using self-initiated or environmental cues to remember? No. MEMORY - SCORE: 7-IND SIGNATURE PANEL: The following modified sections: Memory - Score, Problem Solving - Score, Social Interaction - Score, Expression - Score, Comprehension - Score, Transfers: Bed, Chair, Wheelchair - Score, Transfers: Randy let - Score, Transfers: Tub - Score, Transfers: Shower - Score, Eating - Score, Grooming - Score, Bat luca - Score, Dressing - Upper Body - Score, Dressing - Lower Body - Score, Toileting - Score were [e lectronically] signed by Ana Laura Carlisle OT on SunAug 13 2017 15:39:14 T-0500 ([facility] T karly)
--- NOTE | 2017-08-13 17:41 | FAST ---
SHIFT START DATE/TIME: 08/13/2017 07:00 (CDT) SHIFT END DATE/TIME: 08/13/2017 19:00 (CDT) NAME JAH PALACIOS DATE OF : 1975 DATE OF ADMISSION: 08/10/2017 18:14 (CDT) PHONE: AGE: 42 [facility]# [id number] GENDER: Male ENCOUNTER PHYSICIAN: Dr. Alessandro Khan M.D. ADMISSION DIAGNOSIS: - Cardiac 09 - Cardiac Disorders () CHF. EATING: EATING - STEP 1: Does the patient require assistance when eating? Yes. EATING - STEP 2: Does the patient require the assistance of a helper? Yes. EATING - STEP 3: Does the patient perform half or more of the eating tasks? Yes. EATING - STEP 4: Does the patient need only supervision, cuing, coaxing OR help to apply an orthosis OR help to cut fo od, open containers, pour liquids, or butter bread? Yes. EATING - SCORE: 5-SUP GROOMING: Comb/brush hair Oral care Wash, rinse, and dry hands GROOMING - STEP 1: Does the patient require assistance when grooming? Yes. GROOMING - STEP 2: Does the patient require the assistance of a helper? Yes. GROOMING - STEP 3: How much assistance does the patient require from the helper? Only prior equipment preparation/set up from the helper GROOMING - SCORE: 5-SUP BATHING: Activity did not occur on this shift BATHING - SCORE: 0-UNK DRESSING - UPPER BODY: Activity did not occur on this shift ARTICLES SCORE Total number of steps: 0 DRESSING - UPPER BODY - SCORE: 0-UNK DRESSING - LOWER BODY: Activity did not occur on this shift ARTICLES SCORE Total number of steps: 0 DRESSING - LOWER BODY - SCORE: 0-UNK TOILETING: TOILETING - STEP 1: Does the patient require assistance with toileting? Yes. TOILETING - STEP 2: Does the patient require the assistance of a helper? Yes. TOILETING - STEP 3: How much assistance does the patient require from the helper? Hands-on assistance from the helper TOILETING - STEP 4: Of the 3 tasks: 1) Adjusting clothing prior to use, 2) Cleansing of perineal area, 3) Adjusting clot luca after use; How many tasks does the patient perform WITHOUT assistance of the helper? Three tasks with steadying assistance from the helper TOILETING - SCORE: 4-MIN BLADDER MANAGEMENT: Patient is on renal dialysis or peritoneal dialysis and no voiding activity BLADDER MANAGEMENT - SCORE: 7-IND BOWEL MANAGEMENT: BOWEL MANAGEMENT - STEP 1: Does the patient control bowels completely and intentionally without equipment devices or medications AND is always continent? No. BOWEL MANAGEMENT - STEP 2: Does the patient require the assistance of a helper? No, patient requires and manages independently a n assistive device such as a bedpan, bedside commode, absorbent pad, incontinent device, or collectin g device BOWEL MANAGEMENT - SCORE: 6-PHILLIP TRANSFERS: BED, CHAIR, WHEELCHAIR: TRANSFERS: BED, CHAIR, WHEELCHAIR - STEP 1: Does the patient require assistance with bed, chair, or wheelchair transfers? Yes. TRANSFERS: BED, CHAIR, WHEELCHAIR - STEP 2: Does the patient require the assistance of a helper? Yes. TRANSFERS: BED, CHAIR, WHEELCHAIR - STEP 3: How much assistance does the patient require from the helper? Steadying/guiding assistance TRANSFERS: BED, CHAIR, WHEELCHAIR - SCORE: 4-MIN TRANSFERS: TOILET: TRANSFERS: TOILET - STEP 1: Does the patient require assistance with toilet transfers? Yes. TRANSFERS: TOILET - STEP 2: Does the patient require the assistance of a helper? Yes. TRANSFERS: TOILET - STEP 3: How much assistance does the patient require from the helper? Patient performs half or more of the tr ansferring tasks TRANSFERS: TOILET - STEP 4: Does the patient need only incidental help such as contact guard or steadying during toilet transfer? Yes. TRANSFERS: TOILET - SCORE: 4-MIN TRANSFERS: SHOWER: Activity did not occur on this shift TRANSFERS: SHOWER - SCORE: 0-UNK TRANSFERS: TUB: Activity did not occur on this shift TRANSFERS: TUB - SCORE: 0-UNK LOCOMOTION: WALK: Activity did not occur on this shift LOCOMOTION: WALK - SCORE: 0-UNK LOCOMOTION: WHEELCHAIR: Activity did not occur on this shift LOCOMOTION: WHEELCHAIR - SCORE: 0-UNK COMPREHENSION: COMPREHENSION - SCORE: 0-UNK EXPRESSION EXPRESSION - SCORE: 0-UNK SOCIAL INTERACTION: SOCIAL INTERACTION - SCORE: 0-UNK PROBLEM SOLVING: PROBLEM SOLVING - SCORE: 0-UNK MEMORY: MEMORY - SCORE: 0-UNK SIGNATURE PANEL: The following modified sections: Eating - Score, Grooming - Score, Bathing - Score, Dressing - Upper Body - Score, Dressing - Lower Body - Score, Toileting - Score, Bladder Management - Score, Bowel Man agement - Score, Transfers: Bed, Chair, Wheelchair - Score, Transfers: Toilet - Score, Transfers: Mary Beth wer - Score, Transfers: Tub - Score, Locomotion: Walk - Score, Locomotion: Wheelchair - Score, Compre hension - Score, Expression - Score, Social Interaction - Score, Problem Solving - Score, Memory - Sc ore were [electronically] signed by Jaun Nunez on SunAug 13 2017 16:41:04 GMT-0500 (Central Daylight Time)
[2017-08-13] MEDS: ATORVASTATIN 40 MG TAB PO SCH (20:47)
[2017-08-13] MEDS: MIRTAZAPINE 15 MG TAB PO SCH (20:48)
[2017-08-13] MEDS ORDERED: EPOETIN ALFA 10,000 UNIT/ML VIAL SQ SCH (22:30)
[2017-08-14] MEDS: PIPER/TAZO/NS 2.25gm 2.25 GM/50 ML BAG IVPB SCH ×2 (02:21→08:45)
--- NOTE | 2017-08-14 02:31 | PN ---
Date of Progress Note: 08/13/2017 Chief Complaint: 1. End-stage renal disease, on dialysis. 2. Pneumonia, the patient is on antibiotics. 3. Malnutrition. P.o. intake is improving. 4. Deconditioning. The patient is undergoing rehab. Review of Systems: The patient is more alert today and denies complaints. Physical Examination: Lungs: Clear to auscultation bilaterally. Heart: S1, S2. Abdomen: Soft, benign. Extremities: No edema. Vital Signs: Blood pressure 146/82, heart rate 87, temperature 96.8. Laboratory Data: Hemoglobin 9.2, WBC 14.0, platelet count is 314,000. Chemistry; sodium 141, potassium 3.9, chloride 104, CO2 29, BUN 37, creatinine 4.3, calcium 8.4. Impression And Plan: 1. Diabetes mellitus. Continue insulin. 2. End-stage renal disease. Next dialysis tomorrow. 3. Renal osteodystrophy. Continue renal diet and binders. 4. Hypoalbuminemia, failure to thrive. Continue p.o. protein supplements and high protein intake. 5. Renal osteodystrophy. Monitor phosphorus level. VIJAY/MODMonica Voice ID: [id number] Report ID: [id number] NICHOLAS
--- NOTE | 2017-08-14 04:36 | FAST ---
SHIFT START DATE/TIME: 08/13/2017 19:00 (CDT) SHIFT END DATE/TIME: 08/14/2017 07:00 (CDT) NAME JAH PALACIOS DATE OF : 1975 DATE OF ADMISSION: 08/10/2017 18:14 (CDT) PHONE: AGE: 42 N# [id number] GENDER: Male ENCOUNTER PHYSICIAN: Dr. Alessandro Khan M.D. ADMISSION DIAGNOSIS: - Cardiac 09 - Cardiac Disorders () CHF. EATING: Activity did not occur on this shift EATING - SCORE: 0-UNK GROOMING: Activity did not occur on this shift GROOMING - SCORE: 0-UNK BATHING: Activity did not occur on this shift BATHING - SCORE: 0-UNK DRESSING - UPPER BODY: Activity did not occur on this shift ARTICLES SCORE Total number of steps: 0 DRESSING - UPPER BODY - SCORE: 0-UNK DRESSING - LOWER BODY: Activity did not occur on this shift ARTICLES SCORE Total number of steps: 0 DRESSING - LOWER BODY - SCORE: 0-UNK TOILETING: TOILETING - STEP 1: Does the patient require assistance with toileting? No. TOILETING - SCORE: 7-IND BLADDER MANAGEMENT: Activity did not occur on this shift BLADDER MANAGEMENT - SCORE: 7-IND BOWEL MANAGEMENT: Activity did not occur on this shift BOWEL MANAGEMENT - SCORE: 7-IND TRANSFERS: BED, CHAIR, WHEELCHAIR: TRANSFERS: BED, CHAIR, WHEELCHAIR - STEP 1: Does the patient require assistance with bed, chair, or wheelchair transfers? Yes. TRANSFERS: BED, CHAIR, WHEELCHAIR - STEP 2: Does the patient require the assistance of a helper? Yes. TRANSFERS: BED, CHAIR, WHEELCHAIR - STEP 3: How much assistance does the patient require from the helper? Steadying/guiding assistance TRANSFERS: BED, CHAIR, WHEELCHAIR - SCORE: 4-MIN TRANSFERS: TOILET: Activity did not occur on this shift TRANSFERS: TOILET - SCORE: 0-UNK TRANSFERS: SHOWER: Activity did not occur on this shift TRANSFERS: SHOWER - SCORE: 0-UNK TRANSFERS: TUB: Activity did not occur on this shift TRANSFERS: TUB - SCORE: 0-UNK LOCOMOTION: WALK: Activity did not occur on this shift LOCOMOTION: WALK - SCORE: 0-UNK LOCOMOTION: WHEELCHAIR: Activity did not occur on this shift LOCOMOTION: WHEELCHAIR - SCORE: 0-UNK COMPREHENSION: COMPREHENSION - STEP 1: Does the patient require help to understand complex and abstract ideas (such as current events, finan edenilson, discharge planning, medical issues, relationships, etc)? Yes. COMPREHENSION - STEP 2: Does the patient require help to understand questions or statements about basic needs or ideas (such as hunger, thirst, sleep, safety, daily schedule, room location, or discomfort) half or more of the t karly? Yes. COMPREHENSION - STEP 3: Is the patient basically able to understand and respond appropriately and consistently? Yes. COMPREHENSION - SCORE: 2-MAX EXPRESSION EXPRESSION - SCORE: 0-UNK SOCIAL INTERACTION: SOCIAL INTERACTION - SCORE: 0-UNK PROBLEM SOLVING: PROBLEM SOLVING - SCORE: 0-UNK MEMORY: MEMORY - STEP 1: Does the patient need help to remember frequently encountered people, daily routines, and executing r equests? No. MEMORY - STEP 2: Does the patient have slight difficulty recognizing frequently encountered people, daily routines, or executing requests without the need for repetition or using self-initiated or environmental cues to remember? No. MEMORY - SCORE: 0-UNK SIGNATURE PANEL: The following modified sections: Eating - Score, Grooming - Score, Bathing - Score, Dressing - Upper Body - Score, Dressing - Lower Body - Score, Toileting - Score, Bladder Management - Score, Bowel Man agement - Score, Transfers: Bed, Chair, Wheelchair - Score, Transfers: Toilet - Score, Transfers: Mary Beth wer - Score, Transfers: Tub - Score, Locomotion: Walk - Score, Locomotion: Wheelchair - Score, Proble m Solving - Score, Memory - Score, Social Interaction - Score, Expression - Score, Comprehension - Sc ore were [electronically] signed by Kelli Glasgow on SunAug 14 2017 03:36:49 GMT-0500 (Central Day light Time)
[2017-08-14] MEDS: INSULIN -REGULAR HUMAN 50 UNIT/0.5 ML ML SQ SCH ×4 (07:30→21:00)
[2017-08-14] MEDS: CARVEDILOL 6.25 MG TAB PO SCH ×2 (08:00→21:24)
[2017-08-14] MEDS: AMLODIPINE 10 MG TAB PO SCH (08:00)
[2017-08-14] MEDS: NEPRO SHAKE 237 ML CAN PO SCH ×2 (08:14→20:00)
[2017-08-14] MEDS: SEVELAMER CARBONATE 800 MG TABLET PO SCH ×3 (08:15→17:00)
[2017-08-14] MEDS: DOXAZOSIN 2 MG TAB PO SCH ×2 (08:15→21:23)
[2017-08-14] MEDS: NPH (HUMAN) 100 UNITS/ML INSULIN SQ SCH ×2 (08:17→17:00)
[2017-08-14] MEDS: FOLIC ACID 1 MG TABLET PO SCH (08:17)
[2017-08-14] MEDS: SERTRALINE HCL 50 MG TAB PO SCH (08:17)
[2017-08-14] MEDS: HEPARIN 5000 UNIT/ML 1 ML VIAL SQ SCH ×2 (08:35→21:34)
[2017-08-14] MEDS ORDERED: EPOETIN ALFA 4000 UNIT/1 ML VIAL SQ SCH (14:15)
--- NOTE | 2017-08-14 15:02 | FAST ---
SHIFT START DATE/TIME: 08/14/2017 07:00 (CDT) SHIFT END DATE/TIME: 08/14/2017 19:00 (CDT) NAME JAH PALACIOS DATE OF : 1975 DATE OF ADMISSION: 08/10/2017 18:14 (CDT) PHONE: AGE: 42 N# [id number] GENDER: Male ENCOUNTER PHYSICIAN: Dr. Alessandro Khan M.D. ADMISSION DIAGNOSIS: - Cardiac 09 - Cardiac Disorders () CHF. EATING: EATING - STEP 1: Does the patient require assistance when eating? Yes. EATING - STEP 2: Does the patient require the assistance of a helper? No, patient only requires an assistive device, O R s/he takes more than reasonable time to eat, OR there is a safety concern, OR s/he requires modifie d food consistency EATING - SCORE: 6-PHILLIP GROOMING: Activity did not occur on this shift GROOMING - SCORE: 0-UNK BATHING: Activity did not occur on this shift BATHING - SCORE: 0-UNK DRESSING - UPPER BODY: Patient is not dressing in public clothing ARTICLES SCORE Total number of steps: 0 DRESSING - UPPER BODY - SCORE: 0-UNK DRESSING - LOWER BODY: Patient is not dressing in public clothing ARTICLES SCORE Total number of steps: 0 DRESSING - LOWER BODY - SCORE: 0-UNK TOILETING: TOILETING - STEP 1: Does the patient require assistance with toileting? Yes. TOILETING - STEP 2: Does the patient require the assistance of a helper? Yes. TOILETING - STEP 3: How much assistance does the patient require from the helper? Only supervision TOILETING - SCORE: 5-SUP BLADDER MANAGEMENT: Patient is on renal dialysis or peritoneal dialysis and no voiding activity BLADDER MANAGEMENT - SCORE: 7-IND BOWEL MANAGEMENT: Activity did not occur on this shift BOWEL MANAGEMENT - SCORE: 7-IND TRANSFERS: BED, CHAIR, WHEELCHAIR: TRANSFERS: BED, CHAIR, WHEELCHAIR - STEP 1: Does the patient require assistance with bed, chair, or wheelchair transfers? Yes. TRANSFERS: BED, CHAIR, WHEELCHAIR - STEP 2: Does the patient require the assistance of a helper? Yes. TRANSFERS: BED, CHAIR, WHEELCHAIR - STEP 3: How much assistance does the patient require from the helper? Only supervision TRANSFERS: BED, CHAIR, WHEELCHAIR - SCORE: 5-SUP TRANSFERS: TOILET: TRANSFERS: TOILET - STEP 1: Does the patient require assistance with toilet transfers? Yes. TRANSFERS: TOILET - STEP 2: Does the patient require the assistance of a helper? Yes. TRANSFERS: TOILET - STEP 3: How much assistance does the patient require from the helper? Only supervision, cuing, coaxing, OR he lp to set out transfer equipment or to lock brakes and/or lift foot rests TRANSFERS: TOILET - SCORE: 5-SUP TRANSFERS: SHOWER: Activity did not occur on this shift TRANSFERS: SHOWER - SCORE: 0-UNK TRANSFERS: TUB: Activity did not occur on this shift TRANSFERS: TUB - SCORE: 0-UNK LOCOMOTION: WALK: Activity did not occur on this shift LOCOMOTION: WALK - SCORE: 0-UNK LOCOMOTION: WHEELCHAIR: Activity did not occur on this shift LOCOMOTION: WHEELCHAIR - SCORE: 0-UNK COMPREHENSION: COMPREHENSION - SCORE: 0-UNK EXPRESSION EXPRESSION - SCORE: 0-UNK SOCIAL INTERACTION: SOCIAL INTERACTION - SCORE: 0-UNK PROBLEM SOLVING: PROBLEM SOLVING - SCORE: 0-UNK MEMORY: MEMORY - SCORE: 0-UNK SIGNATURE PANEL: The following modified sections: Eating - Score, Grooming - Score, Bathing - Score, Dressing - Upper Body - Score, Dressing - Lower Body - Score, Toileting - Score, Bladder Management - Score, Bowel Man agement - Score, Transfers: Bed, Chair, Wheelchair - Score, Transfers: Toilet - Score, Transfers: Mary Beth wer - Score, Transfers: Tub - Score, Locomotion: Walk - Score, Locomotion: Wheelchair - Score, Compre hension - Score, Expression - Score, Social Interaction - Score, Problem Solving - Score, Memory - Sc ore were [electronically] signed by Jaun Nunez on SunAug 14 2017 14:02:43 GMT-0500 (Central Daylight Time)
--- NOTE | 2017-08-14 17:08 | FAST ---
ENCOUNTER DATE AND TIME: 08/14/2017 08:00 (CDT) NAME JAH PALACIOS DATE OF : 1975 DATE OF ADMISSION: 08/10/2017 18:14 (CDT) PHONE: AGE: 42 N# [id number] GENDER: Male ENCOUNTER PHYSICIAN: Dr. Alessandro Khan M.D. ADMISSION DIAGNOSIS: - Cardiac 09 - Cardiac Disorders () CHF. EATING: Activity did not occur on this shift EATING - SCORE: 0-UNK GROOMING: Activity did not occur on this shift GROOMING - SCORE: 0-UNK BATHING: Activity did not occur on this shift BATHING - SCORE: 0-UNK DRESSING - UPPER BODY: Activity did not occur on this shift Patient is not dressing in public clothing ARTICLES SCORE Total number of steps: 0 DRESSING - UPPER BODY - SCORE: 0-UNK DRESSING - LOWER BODY: Activity did not occur on this shift Patient is not dressing in public clothing ARTICLES SCORE Total number of steps: 0 DRESSING - LOWER BODY - SCORE: 0-UNK TOILETING: Activity did not occur on this shift TOILETING - SCORE: 0-UNK BLADDER MANAGEMENT: Activity did not occur on this shift BLADDER MANAGEMENT - SCORE: 7-IND BOWEL MANAGEMENT: Activity did not occur on this shift BOWEL MANAGEMENT - SCORE: 7-IND TRANSFERS: BED, CHAIR, WHEELCHAIR: TRANSFERS: BED, CHAIR, WHEELCHAIR - STEP 1: Does the patient require assistance with bed, chair, or wheelchair transfers? Yes. TRANSFERS: BED, CHAIR, WHEELCHAIR - STEP 2: Does the patient require the assistance of a helper? Yes. TRANSFERS: BED, CHAIR, WHEELCHAIR - STEP 3: How much assistance does the patient require from the helper? Only supervision TRANSFERS: BED, CHAIR, WHEELCHAIR - SCORE: 5-SUP TRANSFERS: TOILET: Activity did not occur on this shift TRANSFERS: TOILET - SCORE: 0-UNK TRANSFERS: SHOWER: Activity did not occur on this shift TRANSFERS: SHOWER - SCORE: 0-UNK TRANSFERS: TUB: Activity did not occur on this shift TRANSFERS: TUB - SCORE: 0-UNK LOCOMOTION: WALK: LOCOMOTION: WALK - STEP 1: Does the patient need help to walk 150 feet? Yes. LOCOMOTION: WALK - STEP 2: How much assistance does the patient require to walk a minimum of 150 feet? Only supervision, cuing, or coaxing LOCOMOTION: WALK - SCORE: 5-SUP LOCOMOTION: WHEELCHAIR: Activity did not occur on this shift LOCOMOTION: WHEELCHAIR - SCORE: 0-UNK LOCOMOTION: STAIRS: LOCOMOTION: STAIRS - STEP 1: Does the patient need help to go up and down 12 to 14 stairs? Yes. LOCOMOTION: STAIRS - STEP 2: How much assistance does the patient need from the helper to go a minimum of 12 to 14 stairs? Only luis pervision, cuing, or coaxing LOCOMOTION: STAIRS - SCORE: 5-SUP COMPREHENSION: COMPREHENSION - SCORE: 0-UNK EXPRESSION EXPRESSION - SCORE: 0-UNK SOCIAL INTERACTION: SOCIAL INTERACTION - SCORE: 0-UNK PROBLEM SOLVING: PROBLEM SOLVING - SCORE: 0-UNK MEMORY: MEMORY - SCORE: 0-UNK SIGNATURE PANEL: The following modified sections: Transfers: Bed, Chair, Wheelchair - Score, Transfers: Toilet - Score , Locomotion: Walk - Score, Locomotion: Wheelchair - Score, Locomotion: Stairs - Score were [akila [email or web address]] signed by Crissy Berg PTA on SunAug 14 2017 16:08:05 GMT-0500 (Central Daylight Time)
--- NOTE | 2017-08-14 18:47 | R.PN ---
ENCOUNTER DATE AND TIME: 08/14/2017 17:43 (CDT) NAME JAH PALACIOS DATE OF : 1975 DATE OF ADMISSION: 08/10/2017 18:14 (CDT) CHFCHIEF COMPLAINT: Cardiac debility, congestive heart failure SUBJECTIVE: Pt denied any Shortness of Breath. Pt denied any depression. Ambulated 330' with contact guard assistance without an assisted device. Up and down 15 steps with c ontact guard assistance using both handrails. VITAL SIGNS Temperature: 97.6 F SBP/DBP: 151/87 Pulse: 89 Resp: 15 MEDICATION ALLERGIES: No Known Drug Allergies (NKDA) ENVIRONMENTAL ALLERGIES: None Known - Substance Allergies None Known - Other Allergies None Known NURSING: - Shower allowing shower - Lab Results blood Sugar Check ACHS ACTIVITIES OOB only with supervision THERAPIES: - Occupational Therapy Evaluate and Treat. - Physical Therapy Evaluate and Treat. PHYSICAL EXAM - Gen Alert and awake Lying in bed No apparent distress Oriented to: person, time, and place - Skin No skin breakdown. Normacephalic - Eyes No abnormalities - ENMT No abnormalities - Neck No abnormalities - CVS RRR - Chest mild decrease in breath sounds - Resp Decreased at the bases bilaterally - Abd Soft - GI Non distended Deferred - No abnormalities - Ext No significant edema - MSK 4/5 weakness in both lower extremities. - Neuro 4/5 strength right upper and lower extremities. - Psych No abnormalities ASSESSMENT: Pt. is a 42 yo Right-handed white male.On 08/06/2017 he was admitted to [facility] with diagnosis CHF.His impairment category is Cardiac 09 - Cardiac Disorders (09).Pre-morbidly, Pt. was independent/mod-I in Communication, Social Cognition, Self-Care, Locomotion, Sphincter Contro l, and Transfers Control; and he had good Sphincter Control.Currently, he has deficits of Balance, Lo comotion, Endurance, Safety Awareness, Transfers Control, and Self-Care.Pt. is now referred to [facility] for acute in-patient rehabilitation in order to maximize patient's functi onal independence in activities of daily living, strength, ROM, and mobility.- Rehab Goal Patient has realistic goal of being discharged at assistance level 6-Yayo to reside at Home with Fam facundo/Relatives. MDM/PLAN: - Diet Type Continue ADA 1999 jung - Physical Therapy Gait dysfunction - to improve, our physical therapists will perform initial evaluation of pt's statu s upon admission and devise an individualized program for Gait Training, and Wheel Chair mobility Inability to transfer - to improve, our physical therapists will perform initial evaluation of pt's status upon admission and devise an individualized program for Bed mobility Need for home safety evaluation - to improve, our physical therapists will perform initial evaluatio n of pt's status upon admission and devise an individualized program for Home Evaluation Need in caregiver upon discharge - to improve, our physical therapists will perform initial evaluati on of pt's status upon admission and devise an individualized program for Caregiver Training New precaution - to improve, our physical therapists will perform initial evaluation of pt's status upon admission and devise an individualized program for Patient precaution education Edema - to improve, our physical therapists will perform initial evaluation of pt's status upon admis doroteo and devise an individualized program for Elevation Training, and Lymphedema Therapy Poor balance - to improve, our physical therapists will perform initial evaluation of pt's status up on admission and devise an individualized program for Balance Training Poor endurance - to improve, our physical therapists will perform initial evaluation of pt's status upon admission and devise an individualized program for Endurance Training Weakness - to improve, our physical therapists will perform initial evaluation of pt's status upon a dmission and devise an individualized program for Aquatic Therapy, Neuromuscular Reeducation, and Str engthening Achieving independence - to improve, our physical therapists will perform initial evaluation of pt's status upon admission and devise an individualized program for Community Reintegration Activities - Diet - Liquid Texture Continue Regular - Tube Feed Continue N/A - Lab Results blood Sugar Check ACHS - Diet - Solid Texture Continue Regular - Shower allowing shower - Occupational Therapy ADL deficits - to improve, our occupation therapists will perform initial evaluation of pt's status upon admission and devise an individualized program for Bathing, Bed mobility, Community Reintegratio n, Cooking, Dressing, Eating, Fine Motor Skills, Grooming, Homemaking, Kitchen Mobility, Laundry, Pat ient Education, Safety Awareness, Splinting - Positioning, Transfers(Toilet, Tub, Shower), and Wheel Chair Management Need for rn acute care - to improve, our occupation therapists will perform initial evaluation of pt's status upon admission and devise an individualized program for Caregiver Training Weakness - to improve, our occupation therapists will perform initial evaluation of pt's status upon admission and devise an individualized program for Aquatic Therapy, Balance, Endurance, UE ROM, and UE strengthening FUNCTIONAL STATUS: UPDATED AT WEEKLY TEAM CONFERENCE - Bladder Same accident frequency: 7-Ind - No accidents in the past 7 days - Bowel Same accident frequency: 7-Ind - No accidents in the past 7 days - Walking Same score based on distance walked: 3(>=150ft) - Wheelchair Same score based on distance traveled: 0(N/A) FUNCTIONAL STATUS: - Self-Care A. Eating Ind B. Grooming Yayo C. Bathing sup D. Dressing - Upper sup E. Dressing - Lower sup F. Toileting sup - Sphincter Control G: Bladder control Ind H: Bowel control Ind - Transfers Control I. Bed/Chair/Wheelchair Luis J. Toilet Luis K. Tub/Shower ADNO - Locomotion L. Walk/Wheelchair (C) Luis L. Walk/Wheelchair (W) Luis M. Stairs ADNO - Communication N. Comprehension (B) Ind O. Expression (B) Ind - Social Cognition P. Social Interaction Ind Q. Problem Solving Ind R. Memory Ind - Endurance Fair - Balance Poor - Safety Awareness Fair [facility] DEFICITS: Balance, Locomotion, Endurance, Safety Awareness, Transfers Control, and Self-Care SIGNATURE PANEL: (CDT)
[2017-08-14] MEDS: MIRTAZAPINE 15 MG TAB PO SCH (21:23)
[2017-08-14] MEDS: ATORVASTATIN 40 MG TAB PO SCH (21:23)
--- NOTE | 2017-08-15 03:04 | FAST ---
SHIFT START DATE/TIME: 08/14/2017 19:00 (CDT) SHIFT END DATE/TIME: 08/15/2017 07:00 (CDT) NAME JAH PALACIOS DATE OF : 1975 DATE OF ADMISSION: 08/10/2017 18:14 (CDT) PHONE: AGE: 42 N# [id number] GENDER: Male ENCOUNTER PHYSICIAN: Dr. Alessandro Khan M.D. ADMISSION DIAGNOSIS: - Cardiac 09 - Cardiac Disorders () CHF. EATING: Activity did not occur on this shift EATING - SCORE: 0-UNK GROOMING: Activity did not occur on this shift GROOMING - SCORE: 0-UNK BATHING: Activity did not occur on this shift BATHING - SCORE: 0-UNK DRESSING - UPPER BODY: Activity did not occur on this shift ARTICLES SCORE Total number of steps: 0 DRESSING - UPPER BODY - SCORE: 0-UNK DRESSING - LOWER BODY: Activity did not occur on this shift ARTICLES SCORE Total number of steps: 0 DRESSING - LOWER BODY - SCORE: 0-UNK TOILETING: Activity did not occur on this shift TOILETING - SCORE: 0-UNK BLADDER MANAGEMENT: Activity did not occur on this shift Patient is on renal dialysis or peritoneal dialysis and no voiding activity BLADDER MANAGEMENT - SCORE: 7-IND BOWEL MANAGEMENT: Activity did not occur on this shift BOWEL MANAGEMENT - SCORE: 7-IND TRANSFERS: BED, CHAIR, WHEELCHAIR: TRANSFERS: BED, CHAIR, WHEELCHAIR - STEP 1: Does the patient require assistance with bed, chair, or wheelchair transfers? No. TRANSFERS: BED, CHAIR, WHEELCHAIR - SCORE: 7-IND TRANSFERS: TOILET: Activity did not occur on this shift TRANSFERS: TOILET - SCORE: 0-UNK TRANSFERS: SHOWER: Activity did not occur on this shift TRANSFERS: SHOWER - SCORE: 0-UNK TRANSFERS: TUB: Activity did not occur on this shift TRANSFERS: TUB - SCORE: 0-UNK LOCOMOTION: WALK: Activity did not occur on this shift LOCOMOTION: WALK - SCORE: 0-UNK LOCOMOTION: WHEELCHAIR: Activity did not occur on this shift LOCOMOTION: WHEELCHAIR - SCORE: 0-UNK COMPREHENSION: COMPREHENSION - SCORE: 0-UNK EXPRESSION EXPRESSION - SCORE: 0-UNK SOCIAL INTERACTION: SOCIAL INTERACTION - SCORE: 0-UNK PROBLEM SOLVING: PROBLEM SOLVING - SCORE: 0-UNK MEMORY: MEMORY - SCORE: 0-UNK SIGNATURE PANEL: The following modified sections: Eating - Score, Grooming - Score, Bathing - Score, Dressing - Upper Body - Score, Dressing - Lower Body - Score, Toileting - Score, Bladder Management - Score, Bowel Man agement - Score, Transfers: Bed, Chair, Wheelchair - Score, Transfers: Toilet - Score, Transfers: Mary Beth wer - Score, Transfers: Tub - Score, Locomotion: Walk - Score, Locomotion: Wheelchair - Score, Compre hension - Score, Expression - Score, Social Interaction - Score, Problem Solving - Score, Memory - Sc ore were [electronically] signed by Kelli Glasgow on SunAug 15 2017 02:04:58 GMT-0500 (Central Day light Time)
[2017-08-15] MEDS: HEPARIN 5000 UNIT/ML 1 ML VIAL SQ SCH (07:23)
[2017-08-15] MEDS: INSULIN -REGULAR HUMAN 50 UNIT/0.5 ML ML SQ SCH (07:30)
[2017-08-15 07:42] VITALS: TEMP 98.4
[2017-08-15] MEDS: SEVELAMER CARBONATE 800 MG TABLET PO SCH (08:00)
[2017-08-15] MEDS: NEPRO SHAKE 237 ML CAN PO SCH (08:00)
[2017-08-15] MEDS: NPH (HUMAN) 100 UNITS/ML INSULIN SQ SCH (08:00)
[2017-08-15] MEDS ORDERED: levoFLOXacin 250 MG TAB PO SCH (08:00)
[2017-08-15] MEDS ORDERED: levoFLOXacin 500 MG TAB PO ONE (08:00)
[2017-08-15] MEDS: DOXAZOSIN 2 MG TAB PO SCH (08:22)
[2017-08-15] MEDS: FOLIC ACID 1 MG TABLET PO SCH (08:23)
[2017-08-15] MEDS: CARVEDILOL 6.25 MG TAB PO SCH (08:23)
[2017-08-15] MEDS: SERTRALINE HCL 50 MG TAB PO SCH (08:24)
[2017-08-15 09:24] VITALS: O2SAT 91
[2017-08-15] MEDS: AMLODIPINE 10 MG TAB PO SCH (10:47)
[2017-08-15 10:48] VITALS: BP 151/88
--- NOTE | 2017-08-15 12:04 | FAST ---
SHIFT START DATE/TIME: 08/15/2017 07:00 (CDT) SHIFT END DATE/TIME: 08/15/2017 19:00 (CDT) NAME JAH PALACIOS DATE OF : 1975 DATE OF ADMISSION: 08/10/2017 18:14 (CDT) PHONE: AGE: 42 N# [id number] GENDER: Male ENCOUNTER PHYSICIAN: Dr. Alessandro Khan M.D. ADMISSION DIAGNOSIS: - Cardiac 09 - Cardiac Disorders () CHF. EATING: EATING - STEP 1: Does the patient require assistance when eating? No. EATING - SCORE: 7-IND GROOMING: GROOMING - STEP 1: Does the patient require assistance when grooming? No. GROOMING - SCORE: 7-IND BATHING: Activity did not occur on this shift BATHING - SCORE: 0-UNK DRESSING - UPPER BODY: ARTICLES SCORE Total number of steps: 0 DRESSING - UPPER BODY - STEP 1: Does the patient require help when dressing above the waist? No. DRESSING - UPPER BODY - SCORE: 7-IND DRESSING - LOWER BODY: ARTICLES SCORE Total number of steps: 0 DRESSING - LOWER BODY - STEP 1: Does the patient require help when dressing below the waist? Yes. DRESSING - LOWER BODY - STEP 2: Does the patient require the assistance of a helper? No. Patient requires an assistive device such as a planer operator / grader. OR s/he takes more than reasonable time as s/he dresses the lower body, OR there is a con cern for safety when s/he dresses the lower body DRESSING - LOWER BODY - SCORE: 6-PHILLIP TOILETING: TOILETING - STEP 1: Does the patient require assistance with toileting? No. TOILETING - SCORE: 7-IND BLADDER MANAGEMENT: BLADDER MANAGEMENT - STEP 1: Does the patient control the bladder completely and intentionally without equipment or devices or med ications, and is always continent? Yes. BLADDER MANAGEMENT - SCORE: 7-IND BLADDER MANAGEMENT - FREQUENCY OF ACCIDENTS: BLADDER MANAGEMENT(FA) - STEP 1: How many accidents has the patient had during the current shift? 0 BOWEL MANAGEMENT: Activity did not occur on this shift BOWEL MANAGEMENT - SCORE: 7-IND BOWEL MANAGEMENT - FREQUENCY OF ACCIDENTS: BOWEL MANAGEMENT(FA) - STEP 1: How many accidents has the patient had during the current shift? 0 TRANSFERS: BED, CHAIR, WHEELCHAIR: TRANSFERS: BED, CHAIR, WHEELCHAIR - STEP 1: Does the patient require assistance with bed, chair, or wheelchair transfers? No. TRANSFERS: BED, CHAIR, WHEELCHAIR - SCORE: 7-IND TRANSFERS: TOILET: TRANSFERS: TOILET - STEP 1: Does the patient require assistance with toilet transfers? No. TRANSFERS: TOILET - SCORE: 7-IND TRANSFERS: SHOWER: Activity did not occur on this shift TRANSFERS: SHOWER - SCORE: 0-UNK TRANSFERS: TUB: Activity did not occur on this shift TRANSFERS: TUB - SCORE: 0-UNK LOCOMOTION: WALK: LOCOMOTION: WALK - STEP 1: Does the patient need help to walk 150 feet? Yes. LOCOMOTION: WALK - STEP 2: How much assistance does the patient require to walk a minimum of 150 feet? Only supervision, cuing, or coaxing LOCOMOTION: WALK - SCORE: 5-SUP LOCOMOTION: WHEELCHAIR: LOCOMOTION: WHEELCHAIR - STEP 1: Does the patient need help to go 150 feet in a wheelchair? No. LOCOMOTION: WHEELCHAIR - SCORE: 6-PHILLIP COMPREHENSION: COMPREHENSION - STEP 1: Does the patient require help to understand complex and abstract ideas (such as current events, finan edenilson, discharge planning, medical issues, relationships, etc)? No. COMPREHENSION - STEP 2: Does the patient need extra time, require an assistive device (such as glasses, hearing aids, or an a ugmentative communication system), OR does s/he have mild difficulty expressing complex and abstract ideas (including mild dysarthria or mild word-finding problems)? No. COMPREHENSION - SCORE: 7-IND EXPRESSION EXPRESSION: TYPE: Both EXPRESSION - STEP 1: Does the patient require help expressing complex and abstract ideas (such as current events, finances , discharge planning, medical issues, relationships, etc)? No. EXPRESSION - STEP 2: Does the patient need extra time, require an assistive device (such as augmentive communication syste m or a communication board), OR does s/he have mild difficulty expressing complex and abstract ideas (including mild dysarthria or mild word-find problems)? No. EXPRESSION - SCORE: 7-IND SOCIAL INTERACTION: SOCIAL INTERACTION - STEP 1: Does the patient require a helper to interact with others in social and therapeutic situations? No. SOCIAL INTERACTION - STEP 2: Does the patient need extra time in social situations, OR does s/he interact with staff, other patien ts, and family members ONLY in structured environments, OR does s/he require medication for social in teraction? No. SOCIAL INTERACTION - SCORE: 7-IND PROBLEM SOLVING: PROBLEM SOLVING - STEP 1: Does the patient need help to solve complex problems such as managing a checking account or confronti ng interpersonal problems? No. PROBLEM SOLVING - STEP 2: Does the patient require extra time to make decisions or solve problems, OR does s/he have slight dif ficulty reading, initiating, or self-correcting in unfamiliar situations? No. PROBLEM SOLVING - SCORE: 7-IND MEMORY: MEMORY - STEP 1: Does the patient need help to remember frequently encountered people, daily routines, and executing r equests? No. MEMORY - STEP 2: Does the patient have slight difficulty recognizing frequently encountered people, daily routines, or executing requests without the need for repetition or using self-initiated or environmental cues to remember? No. MEMORY - SCORE: 7-IND SIGNATURE PANEL: The following modified sections: Eating - Score, Grooming - Score, Bathing - Score, Dressing - Upper Body - Score, Dressing - Lower Body - Score, Toileting - Score, Bladder Management - Score, Bowel Man agement - Score, Transfers: Bed, Chair, Wheelchair - Score, Transfers: Toilet - Score, Transfers: Mary Beth wer - Score, Transfers: Tub - Score, Locomotion: Walk - Score, Locomotion: Wheelchair - Score, Compre hension - Score, Expression - Score, Social Interaction - Score, Problem Solving - Score, Memory - Sc ore were [electronically] signed by Eli Ogden C.N.A. on SunAug 15 2017 11:04:31 T-0500 (Centra l Daylight Time)
--- NOTE | 2017-08-15 15:32 | FAST ---
ENCOUNTER DATE AND TIME: 08/13/2017 08:00 (CDT) NAME JAH PALACIOS DATE OF : 1975 DATE OF ADMISSION: 08/10/2017 18:14 (CDT) PHONE: AGE: 42 N# [id number] GENDER: Male ENCOUNTER PHYSICIAN: Dr. Alessandro Khan M.D. ADMISSION DIAGNOSIS: - Cardiac 09 - Cardiac Disorders () CHF. EATING: Activity did not occur on this shift EATING - SCORE: 0-UNK GROOMING: Activity did not occur on this shift GROOMING - SCORE: 0-UNK BATHING: Activity did not occur on this shift BATHING - SCORE: 0-UNK DRESSING - UPPER BODY: Activity did not occur on this shift Patient is not dressing in public clothing ARTICLES SCORE Total number of steps: 0 DRESSING - UPPER BODY - SCORE: 0-UNK DRESSING - LOWER BODY: Activity did not occur on this shift Patient is not dressing in public clothing ARTICLES SCORE Total number of steps: 0 DRESSING - LOWER BODY - SCORE: 0-UNK TOILETING: Activity did not occur on this shift TOILETING - SCORE: 0-UNK BLADDER MANAGEMENT: Activity did not occur on this shift BLADDER MANAGEMENT - SCORE: 7-IND BOWEL MANAGEMENT: Activity did not occur on this shift BOWEL MANAGEMENT - SCORE: 7-IND TRANSFERS: BED, CHAIR, WHEELCHAIR: TRANSFERS: BED, CHAIR, WHEELCHAIR - STEP 1: Does the patient require assistance with bed, chair, or wheelchair transfers? Yes. TRANSFERS: BED, CHAIR, WHEELCHAIR - STEP 2: Does the patient require the assistance of a helper? Yes. TRANSFERS: BED, CHAIR, WHEELCHAIR - STEP 3: How much assistance does the patient require from the helper? Only supervision TRANSFERS: BED, CHAIR, WHEELCHAIR - SCORE: 5-SUP TRANSFERS: TOILET: Activity did not occur on this shift TRANSFERS: TOILET - SCORE: 0-UNK TRANSFERS: SHOWER: Activity did not occur on this shift TRANSFERS: SHOWER - SCORE: 0-UNK TRANSFERS: TUB: Activity did not occur on this shift TRANSFERS: TUB - SCORE: 0-UNK LOCOMOTION: WALK: LOCOMOTION: WALK - STEP 1: Does the patient need help to walk 150 feet? Yes. LOCOMOTION: WALK - STEP 2: How much assistance does the patient require to walk a minimum of 150 feet? Only supervision, cuing, or coaxing LOCOMOTION: WALK - SCORE: 5-SUP LOCOMOTION: WHEELCHAIR: Activity did not occur on this shift LOCOMOTION: WHEELCHAIR - SCORE: 0-UNK LOCOMOTION: STAIRS: LOCOMOTION: STAIRS - STEP 1: Does the patient need help to go up and down 12 to 14 stairs? Yes. LOCOMOTION: STAIRS - STEP 2: How much assistance does the patient need from the helper to go a minimum of 12 to 14 stairs? Only luis pervision, cuing, or coaxing LOCOMOTION: STAIRS - SCORE: 5-SUP COMPREHENSION: COMPREHENSION - SCORE: 0-UNK EXPRESSION EXPRESSION - SCORE: 0-UNK SOCIAL INTERACTION: SOCIAL INTERACTION - SCORE: 0-UNK PROBLEM SOLVING: PROBLEM SOLVING - SCORE: 0-UNK MEMORY: MEMORY - SCORE: 0-UNK SIGNATURE PANEL: The following modified sections: Transfers: Bed, Chair, Wheelchair - Score, Transfers: Toilet - Score , Locomotion: Walk - Score, Locomotion: Wheelchair - Score, Locomotion: Stairs - Score were [electron kvng] signed by Pj Camargo PTA on SunAug 15 2017 14:32:07 T-0500 (Central Daylight Time)
--- NOTE | 2017-08-15 15:32 | FAST ---
ENCOUNTER DATE AND TIME: 08/15/2017 08:00 (CDT) NAME JAH PALACIOS DATE OF : 1975 DATE OF ADMISSION: 08/10/2017 18:14 (CDT) PHONE: AGE: 42 N# [id number] GENDER: Male ENCOUNTER PHYSICIAN: Dr. Alessandro Khan M.D. ADMISSION DIAGNOSIS: - Cardiac 09 - Cardiac Disorders () CHF. EATING: Activity did not occur on this shift EATING - SCORE: 0-UNK GROOMING: Activity did not occur on this shift GROOMING - SCORE: 0-UNK BATHING: Activity did not occur on this shift BATHING - SCORE: 0-UNK DRESSING - UPPER BODY: Activity did not occur on this shift Patient is not dressing in public clothing ARTICLES SCORE Total number of steps: 0 DRESSING - UPPER BODY - SCORE: 0-UNK DRESSING - LOWER BODY: Activity did not occur on this shift Patient is not dressing in public clothing ARTICLES SCORE Total number of steps: 0 DRESSING - LOWER BODY - SCORE: 0-UNK TOILETING: Activity did not occur on this shift TOILETING - SCORE: 0-UNK BLADDER MANAGEMENT: Activity did not occur on this shift BLADDER MANAGEMENT - SCORE: 7-IND BOWEL MANAGEMENT: Activity did not occur on this shift BOWEL MANAGEMENT - SCORE: 7-IND TRANSFERS: BED, CHAIR, WHEELCHAIR: TRANSFERS: BED, CHAIR, WHEELCHAIR - STEP 1: Does the patient require assistance with bed, chair, or wheelchair transfers? Yes. TRANSFERS: BED, CHAIR, WHEELCHAIR - STEP 2: Does the patient require the assistance of a helper? No. Patient only requires an assistive device fo r bed, chair, wheelchair transfers such as a sliding board, grab bar, or brace, OR s/he takes more th an reasonable time, OR there is a safety concern when s/he performs the transfers TRANSFERS: BED, CHAIR, WHEELCHAIR - SCORE: 6-PHILLIP TRANSFERS: TOILET: Activity did not occur on this shift TRANSFERS: TOILET - SCORE: 0-UNK TRANSFERS: SHOWER: Activity did not occur on this shift TRANSFERS: SHOWER - SCORE: 0-UNK TRANSFERS: TUB: Activity did not occur on this shift TRANSFERS: TUB - SCORE: 0-UNK LOCOMOTION: WALK: LOCOMOTION: WALK - STEP 1: Does the patient need help to walk 150 feet? Yes. LOCOMOTION: WALK - STEP 2: How much assistance does the patient require to walk a minimum of 150 feet? Only supervision, cuing, or coaxing LOCOMOTION: WALK - SCORE: 5-SUP LOCOMOTION: WHEELCHAIR: LOCOMOTION: WHEELCHAIR - STEP 1: Does the patient need help to go 150 feet in a wheelchair? No. LOCOMOTION: WHEELCHAIR - SCORE: 6-PHILLIP LOCOMOTION: STAIRS: LOCOMOTION: STAIRS - STEP 1: Does the patient need help to go up and down 12 to 14 stairs? Yes. LOCOMOTION: STAIRS - STEP 2: How much assistance does the patient need from the helper to go a minimum of 12 to 14 stairs? Only luis pervision, cuing, or coaxing LOCOMOTION: STAIRS - SCORE: 5-SUP COMPREHENSION: COMPREHENSION - SCORE: 0-UNK EXPRESSION EXPRESSION - SCORE: 0-UNK SOCIAL INTERACTION: SOCIAL INTERACTION - SCORE: 0-UNK PROBLEM SOLVING: PROBLEM SOLVING - SCORE: 0-UNK MEMORY: MEMORY - SCORE: 0-UNK SIGNATURE PANEL: The following modified sections: Transfers: Bed, Chair, Wheelchair - Score, Transfers: Toilet - Score , Locomotion: Walk - Score, Locomotion: Wheelchair - Score, Locomotion: Stairs - Score were [electron ically] signed by Pj Camargo PTA on SunAug 15 2017 14:32:58 GMT-0500 (Central Daylight Time)
--- NOTE | 2017-08-15 16:57 | PN ---
Date of Progress Note: 08/15/2017 Subjective: The patient doing well. Been on rehab, tolerated rehab. The patient had dialysis yeste rday. We have 1500 ultrafiltration. Physical Examination: Vital Signs: Blood pressure 151/88, pulse of 86, afebrile. Chest: Clear to auscultation. Heart: S1, S2. Regular. Abdomen: Soft, nontender. Extremities: No edema. Laboratory Data: WBC 14, H and H 9.2/28.5, platelets 314. Sodium 141, potassium 3.1, bicarb 29, BUN 37, creatinine 4.3. Assessment And Plan: 1.End-stage renal disease. Normal volume. We will continue dialysis TTS. The patient cleared from the renal standpoint for discharge planning. 2.Hypertension, controlled, optimal. Continue current medication. 3.Deconditioning. Continue PT/OT. 4.Anemia. Continue Epogen. The patient cleared from the renal standpoint for discharge planning. Current Medication: Include; 1.Atorvastatin. 2.Amlodipine 10. 3.Cardura 1 mg b.i.d. 4.Epogen. 5.Levaquin 250 daily. 6.Zofran. 7.Zosyn. 8.Renvela. Follow this patient. DI/LON Voice ID: [id number] Report ID: [id number]
--- NOTE | 2017-08-16 18:57 | FAST ---
ENCOUNTER DATE AND TIME: 08/15/2017 08:00 (CDT) NAME JAH PALACIOS DATE OF : 1975 DATE OF ADMISSION: 08/10/2017 18:14 (CDT) PHONE: AGE: 42 N# [id number] GENDER: Male ENCOUNTER PHYSICIAN: Dr. Alessandro Khan M.D. ADMISSION DIAGNOSIS: - Cardiac 09 - Cardiac Disorders () CHF. EATING: EATING - STEP 1: Does the patient require assistance when eating? No. EATING - SCORE: 7-IND GROOMING: Comb/brush hair Oral care Wash, rinse, and dry face Wash, rinse, and dry hands GROOMING - STEP 1: Does the patient require assistance when grooming? No. GROOMING - SCORE: 7-IND BATHING: Abdomen Buttocks Chest Left arm Left lower leg and foot Left upper leg Perineal area Right arm Right lower leg and foot Right upper leg BATHING - STEP 1: Does the patient require assistance when bathing? No. BATHING - SCORE: 7-IND DRESSING - UPPER BODY: T-shirt/pullover shirt (four steps) ARTICLES SCORE Total number of steps: 4 DRESSING - UPPER BODY - STEP 1: Does the patient require help when dressing above the waist? No. DRESSING - UPPER BODY - SCORE: 7-IND DRESSING - LOWER BODY: Elastic waist pants (three steps) Sock - Left foot (one step) Sock - Right foot (one step) Tied or buckled shoe - Right foot (two steps) Underwear (three steps) ARTICLES SCORE Total number of steps: 10 DRESSING - LOWER BODY - STEP 1: Does the patient require help when dressing below the waist? No. DRESSING - LOWER BODY - SCORE: 7-IND TOILETING: TOILETING - STEP 1: Does the patient require assistance with toileting? Yes. TOILETING - STEP 2: Does the patient require the assistance of a helper? No. TOILETING - SCORE: 6-PHILLIP BLADDER MANAGEMENT: Activity did not occur on this shift BLADDER MANAGEMENT - SCORE: 7-IND BOWEL MANAGEMENT: Activity did not occur on this shift BOWEL MANAGEMENT - SCORE: 7-IND TRANSFERS: BED, CHAIR, WHEELCHAIR: TRANSFERS: BED, CHAIR, WHEELCHAIR - STEP 1: Does the patient require assistance with bed, chair, or wheelchair transfers? No. TRANSFERS: BED, CHAIR, WHEELCHAIR - SCORE: 7-IND TRANSFERS: TOILET: TRANSFERS: TOILET - STEP 1: Does the patient require assistance with toilet transfers? Yes. TRANSFERS: TOILET - STEP 2: Does the patient require the assistance of a helper? No. Patient only requires an assistive device luis ch as a grab bar or special seat, OR s/he takes more than reasonable time to perform toilet transfers , OR there is a safety concern when s/he performs toilet transfers. TRANSFERS: TOILET - SCORE: 6-PHILLIP TRANSFERS: SHOWER: TRANSFERS: SHOWER - STEP 1: Does the patient require assistance with shower transfers? Yes. TRANSFERS: SHOWER - STEP 2: Does the patient require the assistance of a helper? No. The patient only uses an assistive device, t akes more than reasonable time, OR there is a concern for safety when s/he performs transfers. TRANSFERS: SHOWER - SCORE: 6-PHILLIP TRANSFERS: TUB: Activity did not occur on this shift TRANSFERS: TUB - SCORE: 0-UNK LOCOMOTION: WALK: Activity did not occur on this shift LOCOMOTION: WALK - SCORE: 0-UNK LOCOMOTION: WHEELCHAIR: Activity did not occur on this shift LOCOMOTION: WHEELCHAIR - SCORE: 0-UNK LOCOMOTION: STAIRS: Activity did not occur on this shift LOCOMOTION: STAIRS - SCORE: 0-UNK COMPREHENSION: COMPREHENSION: TYPE: Both COMPREHENSION - STEP 1: Does the patient require help to understand complex and abstract ideas (such as current events, finan edenilson, discharge planning, medical issues, relationships, etc)? No. COMPREHENSION - STEP 2: Does the patient need extra time, require an assistive device (such as glasses, hearing aids, or an a ugmentative communication system), OR does s/he have mild difficulty expressing complex and abstract ideas (including mild dysarthria or mild word-finding problems)? Yes. COMPREHENSION - SCORE: 6-PHILLIP EXPRESSION EXPRESSION: TYPE: Both EXPRESSION - STEP 1: Does the patient require help expressing complex and abstract ideas (such as current events, finances , discharge planning, medical issues, relationships, etc)? No. EXPRESSION - STEP 2: Does the patient need extra time, require an assistive device (such as augmentive communication syste m or a communication board), OR does s/he have mild difficulty expressing complex and abstract ideas (including mild dysarthria or mild word-find problems)? No. EXPRESSION - SCORE: 7-IND SOCIAL INTERACTION: SOCIAL INTERACTION - STEP 1: Does the patient require a helper to interact with others in social and therapeutic situations? No. SOCIAL INTERACTION - STEP 2: Does the patient need extra time in social situations, OR does s/he interact with staff, other patien ts, and family members ONLY in structured environments, OR does s/he require medication for social in teraction? Yes, patient needs extra time SOCIAL INTERACTION - SCORE: 6-PHILLIP PROBLEM SOLVING: PROBLEM SOLVING - STEP 1: Does the patient need help to solve complex problems such as managing a checking account or confronti ng interpersonal problems? No. PROBLEM SOLVING - STEP 2: Does the patient require extra time to make decisions or solve problems, OR does s/he have slight dif ficulty reading, initiating, or self-correcting in unfamiliar situations? No. PROBLEM SOLVING - SCORE: 7-IND MEMORY: MEMORY - STEP 1: Does the patient need help to remember frequently encountered people, daily routines, and executing r equests? No. MEMORY - STEP 2: Does the patient have slight difficulty recognizing frequently encountered people, daily routines, or executing requests without the need for repetition or using self-initiated or environmental cues to remember? No. MEMORY - SCORE: 7-IND SIGNATURE PANEL: The following modified sections: Eating - Score, Grooming - Score, Bathing - Score, Dressing - Upper Body - Score, Dressing - Lower Body - Score, Toileting - Score, Transfers: Bed, Chair, Wheelchair - S core, Transfers: Toilet - Score, Transfers: Tub - Score, Transfers: Shower - Score, Comprehension - S core, Expression - Score, Social Interaction - Score, Problem Solving - Score, Memory - Score were [e lectronically] signed by Ana Laura Carlisle OT on SunAug 16 2017 17:57:47 GMT-0500 (Central Daylight T karly)
[2017-08-17] MEDS ORDERED: levoFLOXacin 250 MG TAB PO SCH (08:00)
--- NOTE | 2017-09-07 13:46 | R.DS ---
FACILITY [facility] MR# [id number] NAME JAH PALACIOS ADDRESS [address] [place] [address] [address]IP [address] PHONE DATE OF 1975 AGE 42 SSN# [id number] GENDER Male DEXTERITY Right-handed MARITAL STATUS Single (Never ) RACE White ENCOUNTER PHYSICIAN Dr. Alessandro Khan M.D. REFERRING DOCTOR DR. VARINDER WADDELL REFERRING FACILITY [facility] DISCHARGE DIAGNOSIS: - Cardiac 09 - Cardiac Disorders () CHF. DISCHARGE COMORBIDITIES: - Tier 1 Dependence on renal dialysis [Z992] - Tier 3 Pneumonia, unspecified organism [J189] - Non-Tiered Type 2 diabetes mellitus with diabetic neuropathy, unspecified [E1140] - N/A CKD ANEMIA ESRD PLEURAL EFFUSION PNEUMONIA RENAL OSTEODYSTROPHY HYPOALBUMINEMIA HTN DATE OF ADMISSION 08/10/2017 18:14 (CDT) MEDICATION ALLERGIES: No Known Drug Allergies (NKDA) ENVIRONMENTAL ALLERGIES: None Known - Substance Allergies None Known - Other Allergies None Known NURSING: - Shower allowing shower - Lab Results blood Sugar Check ACHS ACTIVITIES OOB only with supervision THERAPIES: - Occupational Therapy Evaluate and Treat - Physical Therapy Evaluate and Treat HISTORY OF PRESENT ILLNESS: Pt. is a 42 yo Right-handed white male.On 08/06/2017 he was admitted to [facility] with diagnosis CHF.His impairment category is Cardiac 09 - Cardiac Disorders ().Pre-morbidly, Pt. was independent/mod-I in Self-Care, Sphincter Control, Communication, and Social Cognition; and h e had good Sphincter Control.Currently, he has deficits of Balance, Locomotion, Endurance, Safety Bernie reness, Transfers Control, and Self-Care.Pt. is now referred to [facility] for acute in-patient rehabilitation in order to maximize patient's functional independence in activities of daily living, strength, ROM, and mobility.- Rehab Goal Patient has realistic goal of being discharged at assistance level 6-Yayo to reside at Home with Fam facundo/Relatives. HOSPITAL COURSE: DIET TYPE: On 08/10/2017 Pt was changed to ADA 2000 jung Diet Type. DIET - LIQUID TEXTURE: On 08/10/2017 Pt was upgraded to Regular Diet - Liquid Texture. DIET - SOLID TEXTURE: On 08/10/2017 Pt was upgraded to Regular Diet - Solid Texture. TUBE FEED: On 08/10/2017 Pt was changed to N/A Tube Feed. DISCHARGE PHYSICAL EXAM - Gen Alert and awake Lying in bed No apparent distress Oriented to: person, time, and place - Skin No skin breakdown. Normacephalic - Eyes No abnormalities - ENMT No abnormalities - Neck No abnormalities - CVS RRR - Chest mild decrease in breath sounds - Resp Decreased at the bases bilaterally - Abd Soft - GI Non distended Deferred - No abnormalities - Ext No significant edema - MSK 4/5 weakness in both lower extremities. - Neuro 4/5 strength right upper and lower extremities. - Psych No abnormalities FUNCTIONAL STATUS: - Self-Care A. Eating 7-Ind 7-Ind B. Grooming 6-Yayo 7-Ind C. Bathing 5-sup 6-Yayo D. Dressing - Upper 5-sup 7-Ind E. Dressing - Lower 5-sup 7-Ind F. Toileting 5-sup 6-Yayo - Sphincter Control G: Bladder control 7-Ind 7-Ind H: Bowel control 7-Ind 7-Ind - Transfers Control I. Bed/Chair/Wheelchair 4-Luis 6-Yayo J. Toilet 4-Luis 6-Yayo K. Tub/Shower 0-ADNO 6-Yayo - Locomotion L. Walk/Wheelchair (C) 4-Luis 5-sup L. Walk/Wheelchair (W) 4-Luis 6-Yayo M. Stairs 0-ADNO 5-sup - Communication N. Comprehension (B) 7-Ind 7-Ind O. Expression (B) 7-Ind 7-Ind - Social Cognition P. Social Interaction 7-Ind 7-Ind Q. Problem Solving 7-Ind 7-Ind R. Memory 7-Ind 7-Ind - Endurance Fair - Balance Poor - Safety Awareness Fair DISCHARGE INSTRUCTIONS: - N/A Levofloxacin 250 mg every 48 hours for 6 days. DISCHARGE PLAN, FOLLOW UP CARE PROVISIONS: - Estimated Length of Stay (days) 10. - Consensus on plan Discharge plan has been discussed with primary caregiver. Patient/Family is in agreement with the cedric n. Primary caregiver is in agreement with the plan. - Patient/Family Goals Return home with assistance. - Planned Living Setting Upon Discharge Home, to live with Family/Relatives. SIGNATURE PANEL: (CDT)
== END 2017-08-15 11:25 | disposition home or self-care (01) | DRG 291 ==
LOC: 5TH 18:14
PROVIDERS: ADMIT Psychiatry & Neurology Neurology with Special Qualifications in Child Neurology; ATTEND Psychiatry & Neurology Neurology with Special Qualifications in Child Neurology
PROC: 5A1D70Z Performance of Urinary Filtration, Intermittent, Less than 6 Hours Per Day (ICD-10-PCS; principal; 2017-08-11)
PROC: 5A1D70Z Performance of Urinary Filtration, Intermittent, Less than 6 Hours Per Day (ICD-10-PCS; 2017-08-14)
DX: I13.2 Hypertensive heart and chronic kidney disease with heart failure and with stage 5 chronic kidney disease, or end stage renal disease (principal); N18.6 End stage renal disease; J18.9 Pneumonia, unspecified organism; E46 Unspecified protein-calorie malnutrition; Z68.1 Body mass index [BMI] 19.9 or less, adult; I50.9 Heart failure, unspecified; N25.0 Renal osteodystrophy; E11.22 Type 2 diabetes mellitus with diabetic chronic kidney disease; D63.1 Anemia in chronic kidney disease; D64.9 Anemia, unspecified; Z99.2 Dependence on renal dialysis
CPT/HCPCS: 36415; 80048; 82040; 82962; 83735; 84134; 85025; 90935; J1644; Q4081

== ENCOUNTER 2018-10-26 06:34 | Emergency (ER) | payer OTHER ==
--- OUTSIDE RECORDS SUMMARY | 2018-10-26 06:37 | XMS REPORT | Clinical Summary ---
:1975 Author Organization [facility] Address [address] [place] [id number] Care Team Providers Name Role Phone Asked, No Pcp Primary Care Provider Unavailable Allergies No Known Allergies Medications Medication Sig Dispensed Refills Start Date End Date Status calcium acetate Take 2 capsules by 3 05/17/2018 Active (PHOSLO) 667 mg mouth 2 (two) capsule times a day. carvedilol (COREG) Take 1 mg by mouth 11 06/27/2018 Active 6.25 MG tablet 2 (two) times a day. TRADJENTA 5 mg tablet Take 1 tablet by 0 06/03/2018 Active mouth daily. mirtazapine (REMERON) Take 1 tablet by 0 06/03/2018 Active 7.5 MG tablet mouth nightly. ondansetron (ZOFRAN) 4 Take 1 tablet by 0 06/03/2018 Active MG tablet mouth as needed. Active Problems No known active problems Encounters Date Type Specialty Care Team Description 07/04/2018 Anesthesia Event General Surgery Jimy Lancaster MD 07/04/2018 Surgery General Surgery Ibrahima Sheth Left Upper Extremity MD Quinn Fistulogram 07/04/2018 Emergency General Surgery Sunday Ewing, Clotted dialysis access, initial encounter (HCC) (Primary Dx); Hypoglycemia; Yanet Durán MD Elevated troponin after 10/25/2017 Social History Tobacco Use Types Packs/Day Years Used Date Never Smoker Smokeless Tobacco: Never Used Alcohol Use Drinks/Week oz/Week Comments Never Alcohol Habits Answer Date Recorded How often do you have a drink containing alcohol? Never 07/04/2018 How many drinks containing alcohol do you have on a typical Not asked day when you are drinking? How often do you have six or more drinks on one occasion? Not asked Sex Assigned at Date Recorded Not on file Job Start Date Occupation Industry Not on file Not on file Not on file Travel History Travel Start Travel End No recent travel history available. Last Filed Vital Signs Vital Sign Reading Time Taken Comments Blood Pressure 132/80 07/04/2018 7:00 PM CDT Pulse 72 07/04/2018 7:00 PM CDT Temperature 36.4 C (97.6 F) 07/04/2018 6:45 PM CDT Respiratory Rate 18 07/04/2018 7:00 PM CDT Oxygen Saturation 98% 07/04/2018 7:00 PM CDT Inhaled Oxygen Concentration - - Weight 39.5 kg (87 lb 2 oz) 07/04/2018 3:41 PM CDT Height 165.1 cm (5' 5") 07/04/2018 3:41 PM CDT Body Mass Index 14.5 07/04/2018 3:41 PM CDT Plan of Treatment Health Maintenance Due Date Last Done Comments INFLUENZA VACCINE 09/05/2018 Procedures Procedure Name Priority Date/Time Associated Comments Diagnosis POC GLUCOSE Routine 07/04/2018 6:13 Results for this PM CDT procedure are in the results section. OR FL < 1 HOUR Routine 07/04/2018 6:05 Results for this PM CDT procedure are in the results section. IA AN ELECTIVE Routine 07/04/2018 5:42 SUPRAGLOTTIC AIRWAY PM CDT Procedure Note - Jimy Lancaster MD - 07/04/2018 5:42 PM CDT Airway Date/Time: 07/04/2018 5:42 PM Performed by: Jimy Lancaster MD Authorized by: Jimy Lancaster MD Location: OR Urgency: Elective Difficult Airway: No Anesthesiologist: Jimy Lancaster MD Resident/ANESTHESIA TECHNICIAN/AA: Qing Sarah CRNA Performed by: resident/ANESTHESIA TECHNICIAN/AA Preoxygenated with 100% O2: Yes C-spine Precautions Maintained Throughout: Yes Mask Ventilation: Easy mask Final Airway Type: Supraglottic airway Final LMA: I-Gel LMA Size: 4 Number of Attempts at Approach: 1 POC GLUCOSE Routine 07/04/2018 4:14 PM CDT POC GLUCOSE Routine 07/04/2018 2:18 PM CDT POC GLUCOSE Routine 07/04/2018 12:58 PM CDT TROPONIN Routine 07/04/2018 12:52 PM CDT ECG 12-LEAD STAT 07/04/2018 12:45 PM CDT XR CHEST 1 VW PORTABLE STAT 07/04/2018 12:41 PM CDT ESTIMATED GFR STAT 07/04/2018 12:27 PM CDT HC COMPLETE BLD COUNT W/AUTO STAT 07/04/2018 12:27 PM CDT Results for this DIFF procedure are in the results section. COMPREHENSIVE METABOLIC STAT 07/04/2018 12:27 PM CDT Results for this PANEL procedure are in the results section. POC GLUCOSE Routine 07/04/2018 12:24 PM CDT ECG ED PRELIMINARY Routine 07/04/2018 12:13 PM CDT Results for this INTERPRETATION procedure are in the results section. after 10/25/2017 Results POC glucose (07/04/2018 6:13 PM CDT)Only the most recent of5 resultswithin the time period is included. POC glucose 122 (H) 65 - 99 mg/dL [facility] Comment: [facility] RN Notified Meter ID: [id number] Sat Instructor: Angelo Conklin Specimen Performing Organization Address City/State/Zipcode Phone Number [facility] DEPARTMENT OF PATHOLOGY [address] [place] [address] AND GENOMIC MEDICINE [facility] [address] [place] [address] HOSPITAL OR FL < 1 Hour (07/04/2018 6:05 PM CDT) Specimen Narrative Performed At EXAMINATION:OR FL 1 HOUR [facility] CLINICAL HISTORY:Pain IMPRESSION: Fluoroscopy was provided. No radiologist present.Please see procedure report for discussion of procedure, findings. [facility]-[id number] Procedure Note Hm Interface, Radiology Results Incoming - 07/04/2018 6:09 PM CDT EXAMINATION: OR FL 1 HOUR CLINICAL HISTORY: Pain IMPRESSION: Fluoroscopy was provided. No radiologist present. Please see procedure report for discussion of procedure, findings. [facility]-[id number] Performing Organization Address City/[facility]/Zipcode Phone Number [facility] [address] [place] [address] Troponin (07/04/2018 12:52 PM CDT) Troponin 0.232 (H) 0.000 - 0.040 [facility] Comment: ng/mL [facility] changed methodology effective: HOSPITAL 06/11/2018 at 10:00 am The new method has a 99th percentile cutoff of 0.040 ng/mL Specimen Plasma specimen Performing Organization Address City/State/Zipcode Phone Number [facility] DEPARTMENT OF PATHOLOGY [address] [place] [address] AND GENOMIC MEDICINE [facility] [address] ECG 12 lead (07/04/2018 12:45 PM CDT) Ventricular rate 77 [facility]USE Atrial rate 77 [facility]USE IA interval 206 [facility] QRSD interval 104 [facility] QT interval 400 [facility] QTC interval 452 [facility] MUSE P axis 1 76 [facility] MUSE QRS axis 1 69 [facility] MUSE T wave axis 253 [facility] MUSE EKG impression Normal sinus rhythm-Possible Left atrial enlargement- Incomplete right bundle branch block-Left ventricular hypertrophy with repolarization abnormality-Abnormal ECG-No previous ECGs available-Electronica [facility] MUSE lly Signed By Mario Johansen MD ([id number]) on 07/05/2018 12:55:19 PM Specimen Narrative Performed At Performing Organization Address City/[facility] Phone Number [facility] [employer] [address] [place] [address] XR Chest 1 Vw Portable (07/04/2018 12:41 PM CDT) Specimen Narrative Performed At EXAMINATION:XR CHEST 1 VW PORTABLE [facility] CLINICAL HISTORY:Missed dialysis COMPARISON:None. IMPRESSION: 1.Borderline vascular congestion and possible mild edema. 2.Trace bilateral pleural effusions. 3.Mild cardiomegaly. 4.Left axillary and left upper arm vascular stents. 5.No acute osseous abnormality. [id number] Procedure Note Interface, Radiology Results Incoming - 07/04/2018 12:49 PM CDT EXAMINATION: XR CHEST 1 VW PORTABLE CLINICAL HISTORY: Missed dialysis COMPARISON: None. IMPRESSION: 1. Borderline vascular congestion and possible mild edema. 2. Trace bilateral pleural effusions. 3. Mild cardiomegaly. 4. Left axillary and left upper arm vascular stents. 5. No acute osseous abnormality. [id number] Performing Organization Address City/State/Zipcode Phone Number [facility] [address] [place] [address] Estimated GFR (07/04/2018 12:27 PM CDT) Estimated GFR 7 (A) mL/min/1.73 [facility] Comment: m2 SCH[facility]Z CatergoryUnitsInterpretation HOSPITAL G1 >=90 Normal or high G2 60-89Mildly decreased [id number] to moderately decreased [id number] to severely decreased G4 15-29Severely decreased G5 <15Kidney failure The eGFR was calculated using the Chronic Kidney Disease Epidemiology Collaboration (CKD-EPI) equation. Interpretation is based on recommendations of the National Kidney Foundation-Kidney Disease Outcomes Quality Initiative (NKF-KDOQI) published in 2014. Specimen Plasma specimen Performing Organization Address City/[facility]/Zipcode Phone Number [facility] DEPARTMENT OF PATHOLOGY [address] [place] [address] AND GENOMIC MEDICINE [facility] [address] CBC with platelet and differential (07/04/2018 12:27 PM CDT) WBC 7.2 4.5 - 11.0 k/uL [facility] RBC 3.69 (L) 4.40 - 6.00 [facility] m/uL [facility] HGB 11.0 (L) 14.0 - 18.0 [facility] g/dL [facility] HCT 35.0 (L) 41.0 - 51.0 % [facility] MCV 94.9 82.0 - 100.0 fL [facility] MCH 29.8 27.0 - 34.0 pg [facility] MCHC 31.4 31.0 - 37.0 [facility] g/dL [facility] RDW - SD 47.4 37.0 - 55.0 fL [facility] MPV 12.9 (H) 6.9 - 11.0 fL [facility] Platelet count 169 150 - 400 K/uL [facility] Nucleated RBC 0.00 /100 WBC [facility] Neutrophils 67.5 39.0 - 69.0 % [facility] Lymphocytes 13.4 (L) 25.0 - 45.0 % [facility] Monocytes 11.0 (H) 0.0 - 10.0 % [facility] Eosinophils 6.5 (H) 0.0 - 5.0 % [facility] Basophils 1.2 (H) 0.0 - 1.0 % [facility] Immature granulocytes 0.4 0.0 - 1.0 % [facility] Specimen Blood Performing Organization Address City/State/Zipcode Phone Number [facility] DEPARTMENT OF PATHOLOGY [address] [place] [address] AND GENOMIC MEDICINE [facility] [address] Comprehensive metabolic panel (07/04/2018 12:27 PM CDT) Sodium 137 135 - 148 [facility] mEq/L [facility] Potassium 5.3 (H) 3.5 - 5.0 [facility] mEq/L [facility] Chloride 96 (L) 98 - 112 [facility] mEq/L [facility] CO2 27 24 - 31 mEq/L [facility] Anion gap 14@ANIO 7 - 15 mEq/L [facility] BUN 57 (H) 6 - 20 mg/dL [facility] Creatinine 8.21 (H) 0.70 - 1.20 [facility] mg/dL [facility] Glucose 44 (LL) 65 - 99 mg/dL [facility] Comment: SCHERTZ Final results called to and read back by John Mesa/BACILIO07/04/2018 HOSPITAL 13:04 KL Calcium 9.5 8.3 - 10.2 [facility] mg/dL [facility] Protein 7.3 6.3 - 8.3 [facility] g/dL [facility] Albumin 3.7 3.5 - 5.0 [facility] g/dL [facility] A/G ratio 1.0 0.7 - 3.8 [facility] Alkaline phosphatase 122 40 - 129 U/L [facility] AST 18 10 - 50 U/L [facility] ALT 12 5 - 50 U/L [facility] Total bilirubin 0.4 0.2 - 1.2 [facility] mg/dL [facility] Specimen Plasma specimen Performing Organization Address City/State/Zipcode Phone Number [facility] DEPARTMENT OF PATHOLOGY [address] [place] [address] AND GENOMIC MEDICINE [facility] [address] [place] [address] [facility] ECG ED Preliminary Interpretation - Not an Order (07/04/2018 12:13 PM CDT) Narrative Performed At Aquiles Mariano NP 07/04/20182:30 PM ECG ED Preliminary Interpretation - Not an Order Performed by: Aquiles Mariano NP Authorized by: Sunday Ewing MD ECG reviewed by ED Physician in the absence of a clam treader: yes Interpretation: Interpretation: abnormal Rate: ECG rate:77 ECG rate assessment: normal Rhythm: Rhythm: sinus rhythm Ectopy: Ectopy: none QRS: QRS axis:Normal QRS intervals:Normal ST segments: ST segments:Non-specific T waves: T waves: inverted Inverted:V4, V5, V6, II, III and aVF after 10/25/2017 Insurance Payer Benefit Plan / Subscriber ID Effective Dates Phone Address Type Group MEDICARE MEDICARE PART A xxxxxxxxxxx 2016-Present [place], [place] Medicare AND B (Home) [place] [address] Advance Directives For more information, please contact: [phone] Type Date Recorded 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
--- OUTSIDE RECORDS SUMMARY | 2018-10-26 06:38 | XMS REPORT | Clinical Summary ---
:1975 Author Organization [facility] Address [address] [place] [address] Care Team Providers Name Role Phone Kurt Luisito Reed Primary Care Provider Allergies No Known Allergies Medications Medication Sig Dispensed Refills Start Date End Date Status INSULIN NPH Inject 7 Units 0 Active HUM/REG INSULIN subcutaneously 2 HM (NOVOLIN 70/30 (two) times daily SUBQ) PATIENT TAKES 7 UNITS IN AM AND 5 UNITS IN PM. carvedilol Take 12.5 mg by 0 Active (COREG) 6.25 MG mouth 2 (two) times tablet daily with breakfast and dinner . calcium acetate Take 667 mg by 0 Active (PHOSLO) 667 mg mouth 3 (three) capsule times daily with meals. mirtazapine Take 7.5 mg by 0 Active (REMERON) 7.5 MG mouth nightly. tablet ondansetron Take 4 mg by mouth 0 Active (ZOFRAN) 4 MG 2 (two) times daily tablet as needed for Nausea. pravastatin Take 40 mg by mouth 0 Active (PRAVACHOL) 40 MG daily. tablet folic Take 1 tablet by 0 Active acid-multivitamin mouth daily. s (NEPHRO-PARRIS) 0.8 mg Tab tablet linaGLIPtin Take 5 mg by mouth 0 Active (TRADJENTA) 5 mg daily. Tab amLODIPine Take 10 mg by mouth 0 09/12/19 Discontinued (NORVASC) 10 MG daily. 19 tablet doxazosin Take 2 mg by mouth 0 09/12/19 Discontinued (CARDURA) 2 MG 2 (two) times daily 19 tablet . atorvastatin Take 40 mg by mouth 0 09/12/19 Discontinued (LIPITOR) 80 MG daily. 19 tablet amLODIPine Take 1 tablet (10 30 tablet 07/16/2017 07/17/19 (NORVASC) 10 MG mg total) by mouth 19 tablet daily. carvedilol Take 1 tablet (6.25 60 tablet 07/15/2017 07/16/19 (COREG) 6.25 MG mg total) by mouth 19 tablet 2 (two) times daily with breakfast and dinner. 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, unspecified HF chronicity (HCC) 09/27/2018 Telephone Transplant Rigo Callejas, Follow-up RN 09/23/2018 Hospital Encounter Cardiology Nikhil, ESRD (end stage renal disease) ([facility]); Gaetano Guzman II, Pre-transplant evaluation for end stage renal disease; Pre-operative cardiovascular examination 09/11/2018 Orders Only Transplant [place], Pre-transplant evaluation for chronic kidney disease; Hepatology Prisca Herrera MD Abnormal levels of other serum enzymes ; Abnormal coagulation profile ; Abnormal results of liver function studies ; Abnormal finding in urine 09/11/2018 Evaluation Transplant [place], Pre-transplant Prisca Herrera MD evaluation for end Adriana Fierro MD stage renal disease (Primary Dx) 09/11/2018 Evaluation Transplant Fab[place], Pre-transplant Prisca Herrera MD evaluation for end stage renal disease (Primary Dx) 09/11/2018 Orders Only Transplant Leyla Stringer RN Pre-transplant evaluation for chronic kidney disease (Primary Dx); Abnormal levels of other serum enzymes ; Abnormal results of liver function studies ; Abnormal findings on diagnostic imaging of other abdominal regions, including retroperitoneum ; Abnormal coagulation profile ; Abnormal finding in urine 08/28/2018 Hospital Encounter Radiology Lee Rivera, ASD (atrial septal defect); End stage renal disease (HCC) 08/27/2018 Outside Orders Central Scheduling Lee Rivera, ASD (atrial septal defect) (Primary Dx); End stage renal disease (HCC) 08/26/2018 Telephone Transplant Britta Laurajuan joseisidoro, Follow-up RN 08/14/2018 Orders Only Transplant [place]Laurajuan joseisidoro, ESRD (end stage renal disease) (HCC) (Primary Dx); RN Pre-transplant evaluation for end stage renal disease; Pre-operative cardiovascular examination 07/24/2018 Telephone Transplant [place] Rigo, Follow-up RN 07/23/2018 Telephone Transplant [place] Laurabelisidoro, Follow-up RN 07/12/2018 Telephone Transplant [place] Laurajuan joseisidoro, Follow-up RN 06/25/2018 Hospital Encounter Radiology Lee Rivera, End stage renal MD disease (HCC) 06/20/2018 Outside Orders Central Scheduling Lee Rivera, End stage renal MD disease (HCC) (Primary Dx) 11/23/2017 Telephone Transplant Rigo Callejas, RN after 10/25/2017 Social History Tobacco Use Types [...] Vital Sign Reading Time Taken Blood Pressure 152/85 10/11/2018 2:44 PM CDT Pulse 71 10/11/2018 2:44 PM CDT Temperature 36.4 C (97.5 F) 10/11/2018 6:52 AM CDT Respiratory Rate 16 10/11/2018 2:44 PM CDT Oxygen Saturation 100% 10/11/2018 2:11 PM CDT Inhaled Oxygen Concentration - - Weight 38.7 kg (85 lb 4.8 oz) 10/11/2018 6:52 AM CDT Height 165.1 cm (5' 5") 10/11/2018 6:52 AM CDT Body Mass Index 14.19 10/11/2018 6:52 AM CDT Plan of Treatment Health Maintenance Due Date Last Done Comments HEMOGLOBIN A1C 12/28/2017 06/27/2017, 11/17/2016, 08/16/2016 Implants Implanted Type Area Lone Lead Lineman Device Shelf Model / Identifier Expiration Serial / Date Lot Matrix Floseal Hemo W/O [id number] - [id number] Cement/Fi Left: Arm MCINTOSH:BIOSCI 08/04/2017 [id number] / Implanted: Qty: 1 on 05/08/2016 by Codie Lim MD ller/Daniel Lopez / [employer] [id number] Matrix Floseal Hemo W/O [id number] - [id number] Cement/Fi Left: Arm MCINTOSH:BIOSCI 12/04/2017 [id number] / Implanted: Qty: 1 on 06/30/2016 by Codie Lim MD ller/Daniel Lopez / [employer] [id number] Procedures Procedure Name Priority Date/Time Associated Diagnosis Comments CARDIAC CATH REPORT - 10/15/2018 9:33 AM SCAN CDT R CATH 10/11/2018 10:51 AM 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 CBC W/PLT COUNT & AUTO Routine 10/11/2018 8:04 Results for this DIFFERENTIAL AM CDT procedure are in the results section. HEPATIC FUNCTION PANEL Routine 10/11/2018 8:04 Results for this AM CDT procedure are in the results section. BASIC METABOLIC PANEL Routine 10/11/2018 8:04 Results for this (7) AM CDT procedure are in the results section. PERIPHERAL VASCULAR 09/24/2018 9:20 REPORT - SCAN PM CDT STRESS ECHO W/ TRACING Routine 09/23/2018 2:24 ESRD (end stage renal Results for this W/O CONTRAST PM CDT disease) (HCC) procedure are in Pre-transplant the results evaluation for end section. stage renal disease Pre-operative cardiovascular examination TRANSFUSION SERVICE 09/12/2018 6:05 REPORT - SCAN PM CDT CBC W/PLT COUNT & AUTO Routine 09/11/2018 9:59 Pre-transplant Results for this DIFFERENTIAL AM CDT evaluation for procedure are in chronic kidney the results disease section. ABORH, MANUAL Routine 09/11/2018 9:59 Pre-transplant Results for this AM CDT evaluation for procedure are in chronic kidney the results disease section. DIRECT AHG (VARGHESE)/DIRECT Routine 09/11/2018 9:59 Pre-transplant Results for this ALEXUS AM CDT evaluation for procedure are in chronic kidney the results disease section. PSA Routine 09/11/2018 9:59 Pre-transplant Results for this AM CDT evaluation for procedure are in chronic kidney the results disease section. VARICELLA ZOSTER Routine 09/11/2018 9:59 Pre-transplant Results for this ANTIBODY, IGG AM CDT evaluation for procedure are in chronic kidney the results disease section. URINALYSIS W/ Routine 09/11/2018 9:59 Pre-transplant Results for this MICROSCOPIC AM CDT evaluation for procedure are in chronic kidney the results disease section. URIC ACID Routine 09/11/2018 9:59 Pre-transplant Results for this AM CDT evaluation for procedure are in chronic kidney the results disease section. T SPOT TB Routine 09/11/2018 9:59 Pre-transplant Results for this AM CDT evaluation for procedure are in chronic kidney the results disease section. RPR Routine 09/11/2018 9:59 Pre-transplant Results for this AM CDT evaluation for procedure are in chronic kidney the results disease section. PROTHROMBIN TIME/INR Routine 09/11/2018 9:59 Abnormal results of Results for this AM CDT liver function procedure are in studies the results Pre-transplant section. evaluation for chronic kidney disease PT/APTT Routine 09/11/2018 9:59 Abnormal coagulation Results for this AM CDT profile procedure are in Abnormal results of the results liver function section. studies Pre-transplant evaluation for chronic kidney disease PTH, INTACT Routine 09/11/2018 9:59 Pre-transplant Results for this AM CDT evaluation for procedure are in chronic kidney the results disease section. PHOSPHORUS Routine 09/11/2018 9:59 Pre-transplant Results for this AM CDT evaluation for procedure are in chronic kidney the results disease section. LACTATE DEHYDROGENASE Routine 09/11/2018 9:59 Pre-transplant Results for this (LDH) AM CDT evaluation for procedure are in chronic kidney the results disease section. HIV-1 ANTIGEN WITH Routine 09/11/2018 9:59 Pre-transplant Results for this HIV-1/2 ANTIBODY AM CDT evaluation for procedure are in chronic kidney the results disease section. HEPATITIS C ANTIBODY Routine 09/11/2018 9:59 Pre-transplant Results for this AM CDT evaluation for procedure are in chronic kidney the results disease section. HEPATITIS B CORE Routine 09/11/2018 9:59 Pre-transplant Results for this ANTIBODY, IGM AM CDT evaluation for procedure are in chronic kidney the results disease section. HEPATITIS B SURFACE Routine 09/11/2018 9:59 Pre-transplant Results for this ANTIGEN AM CDT evaluation for procedure are in chronic kidney the results disease section. HEPATITIS B SURFACE Routine 09/11/2018 9:59 Pre-transplant Results for this ANTIBODY AM CDT evaluation for procedure are in chronic kidney the results disease section. GAMMA GLUTAMYL Routine 09/11/2018 9:59 Abnormal levels of Results for this TRANSFERASE (GGT) AM CDT other serum enzymes procedure are in Pre-transplant the results evaluation for section. chronic kidney disease EBV ANTIBODY, IGM Routine 09/11/2018 9:59 Pre-transplant Results for this AM CDT evaluation for procedure are in chronic kidney the results disease section. EBV ANTIBODY, IGG Routine 09/11/2018 9:59 Pre-transplant Results for this AM CDT evaluation for procedure are in chronic kidney the results disease section. COMPREHENSIVE METABOLIC Routine 09/11/2018 9:59 Pre-transplant Results for this PANEL AM CDT evaluation for procedure are in chronic kidney the results disease section. CYTOMEGALOVIRUS Routine 09/11/2018 9:59 Pre-transplant Results for this ANTIBODY, IGM AM CDT evaluation for procedure are in chronic kidney the results disease section. CYTOMEGALOVIRUS Routine 09/11/2018 9:59 Pre-transplant Results for this ANTIBODY, IGG AM CDT evaluation for procedure are in chronic kidney the results disease section. CBC W/PLT COUNT & AUTO Routine 09/11/2018 9:59 Pre-transplant Results for this DIFFERENTIAL AM CDT evaluation for procedure are in chronic kidney the results disease section. URINE CULTURE Routine 09/11/2018 9:59 Abnormal finding in Results for this AM CDT urine procedure are in Pre-transplant the results evaluation for section. chronic kidney disease NM MYOCARDIAL PERFUSION Routine 08/28/2018 1:24 ASD (atrial septal Results for this SPECT, PHARM(LEXISCAN) PM CDT defect) procedure are in End stage renal the results disease (HCC) section. TREADMILL Routine 08/28/2018 11:39 Results for this TOLERANCE(NON-NUCLEAR AM CDT procedure are in TREADMILL) the results section. ECG 12-LEAD Routine 08/28/2018 11:30 Results for this AM CDT procedure are in the results section. ECG 12-LEAD Routine 08/28/2018 11:30 AM CDT Procedure Note - Interface, External Ris In - 08/28/2018 11:53 AM CDT Ventricular Rate 71 BPM Atrial Rate 71 BPM P-R Interval 188 ms QRS Duration 94 ms Q-T Interval 404 ms QTC Calculation(Bazett) 439 ms P [place] 80 degrees R [place] 85 degrees T [place] -74 degrees Normal sinus rhythm Left ventricular hypertrophy with repolarization abnormality Abnormal ECG CT/CTA AAA AND Routine 06/25/2018 9:43 AM End stage renal Results for this RUNOFF CDT disease (HCC) procedure are in the results section. RHYTHM STRIP - 01/09/2018 5:40 AM SCAN COST CONTROL ANALYST after 10/25/2017 Results CARDIAC CATH REPORT - SCAN (10/15/2018 9:33 AM CDT) Narrative Performed At CBC with platelet count + automated diff (10/11/2018 8:04 AM CDT)Only the most recent of2 resultswithin the time period is included. WBC 6.6 3.5 - 10.5 K/L [facility] RBC 4.14 (L) 4.63 - 6.08 M/L [facility] Hemoglobin 12.6 (L) 13.7 - 17.5 GM/DL [facility] Hematocrit 40.2 40.1 - 51.0 % [facility] MCV 97.1 (H) 79.0 - 92.2 fL [facility] MCH 30.4 25.7 - 32.2 pg [facility] MCHC 31.3 (L) 32.3 - 36.5 GM/DL [facility] RDW 13.9 11.6 - 14.4 % [facility] Platelets 146 (L) 150 - 450 K/CU MM [facility] MPV 13.1 (H) 9.4 - 12.4 fL [facility] nRBC 0 0 - 0 /100 WBC [facility] % Neutros 69 % [facility] % Lymphs 13 % [facility] % Monos 12 % [facility] % Eos 6 % [facility] % Baso 1 % [facility] # Neutros 4.57 1.78 - 5.38 K/L [facility] # Lymphs 0.84 (L) 1.32 - 3.57 K/L [facility] # Monos 0.76 0.30 - 0.82 K/L [facility] # Eos 0.38 0.04 - 0.54 K/L [facility] # Baso 0.05 0.01 - 0.08 K/L [facility] Immature Granulocytes-Relative 1 0 - 1 % [facility] Specimen Blood Performing Organization Address City/[facility] Phone Number [address] [address] [phone] [place] Hepatic function panel (10/11/2018 8:04 AM CDT) Protein, Total 7.4 6.0 - 8.3 gm/dL [facility] Albumin 3.9 3.5 - 5.0 g/dL [facility] Total Bilirubin 0.6 0.2 - 1.2 mg/dL [facility] Bilirubin, Direct 0.3 0.1 - 0.5 mg/dL [facility] Alkaline Phosphatase 128 40 - 150 U/L [facility] AST 14 5 - 34 U/L [facility] ALT 12 6 - 55 U/L [facility] Specimen Blood Performing Organization Address City/[facility] Phone Number [address] [address] CENTER Basic metabolic panel (10/11/2018 8:04 AM CDT) Sodium 135 (L) 136 - 145 meq/L [facility] Potassium 5.0 3.5 - 5.1 meq/L [facility] Chloride 97 (L) 98 - 107 meq/L [facility] CO2 27 22 - 29 meq/L [facility] BUN 49 (H) 7 - 21 mg/dL [facility] Creatinine 6.52 (H) 0.57 - 1.25 mg/dL [facility] Glucose 207 (H) 70 - 105 mg/dL [facility] Calcium 9.4 8.4 - 10.2 mg/dL [facility] EGFR 9Comment: ESTIMATED GFR IS mL/min/1.73 sq m [facility] NOT ACCURATE CREATININE [facility] CLEARANCE IN PREDICTING GLOMERULAR FILTRATION RATE. ESTIMATED GFR IS NOT APPLICABLE FOR DIALYSIS PATIENTS. Specimen Blood Performing Organization Address City/State/Zipcode Phone Number [facility] [address] [place] [address] [phone] CENTER PERIPHERAL VASCULAR REPORT - SCAN (09/24/2018 9:20 PM CDT) Narrative Performed At Stress echo/pharm w/contrast & tracing (09/23/2018 2:24 PM CDT) Ejection Fraction [facility] [place] Specimen Narrative Performed At Stress Echocardiography Report [facility] [place] [facility] Demographics Patient NameJAH BARRERA Date of Study09/23/2018 ASHLEY Gender Male Visit [id number] Race Unknown Number Number Date of 1975 Nicole Guzman Physician Age 43 year(s) SonographEryn Escobedo Interpreting Nicole Laguna FEL Procedure Type of Study Stress procedure:STRESS ECHO/PHARM W/DOP&TRAC (Routine) Indications:Pre-surgical evaluation of organ transplant. Clinical History CHF ASD/PFO HTN DM ESRD Height: 66 inches Weight: 39.46 kg (87 lbs) BSA: 1.4 m^2 BMI: 14.04 kg/m^2 HR: 75 bpm BP: 160/65 mmHg Rest ECG Stress echo indication: pre-transplant evaluation . Baseline ECG notable for normal sinus rhythm with HR of 78 bpm. ECG notable for LVH with repolarization abnormalities leading to diffuse TWI. no significant ST elevations or depressions at baseline. Stress Predicted HR: 177 bpm Stress Interpretation Non-diagnostic stress ECG due to inability to reach 85% MPHR and given baseline LVH with repolarization abnormalities. Non-diagnostic stress TTE as patient not able to meet >60% MPHR or >85% of MPHR and no stress images obtained. Results Global LVEF (rest): Mildly depressed (LVEF 40-50%) ECG Stress ECG notable for maximal HR of 102 bpm (57% of maximal predicted HR). Patient developed persistent hypertension with maximum dobutamine dosing of 20 mcg/kg/min leading to early termination of stress test. No significant ST changes during submaximal stress. Arrhythmias occasional PVCs during stress. Test aborted early. Symptoms Sensation of heart palpitations and pounding heart. No chest pain. Summary Stress echo indication: pre-transplant evaluation . Stress testing was non-diagnostic given inability to perform stress TTE due to BP elevations. Limited 2D views performed during silo painter imaging. Interpretation demonstrates reduced LVEF and worsening diastolic dysfunction compared to prior ROSIE performed 01/11/17. PFO noted during ROSIE on 01/11/17 not assessed during this limited study. No significant valve disease detected. Signature Findings Technical Quality: Technically adequate exam. Left Ventricle The left ventricle is chamber size (by vol index) is normal (male - LVED vol - 34-74ml/m2). LV septal thickness is moderately increased (1 .5-1.6cm). LV posterior wall thickness is mildly in creased (1.2-1.4cm) . Al l of the LV segments contract normally . LV EF by Restrepo's method of disk assessment is mi ldly reduced (45-49%) . Gr dejan 3 diastolic dysfunction (marked elevated LA pr essure). Left AtriumLA is well visualized. LA size is severely enlarged (>48 ml/m2) . Right VentricleThe right ventricular chamber size and systolic fu nction are within normal limits. Right Atrium RA size is normal. Aortic Valve Normal AoV structure and function by limited views an d Doppler. Mitral Valve Normal MV structure and function by available views an d Doppler. Tr gerry mitral regurgitation. Tricuspid ValveNormal TV structure and function by available views an d Doppler. Mi [id number]-vgigegap tricuspid regurgitation. Es timated peak systolic PA pressure is 60-65 mmHg . Pulmonic Valve Normal PV structure and function by limited views an d Doppler. PericardiumNo significant pericardial effusion is visualized. IVC/SVC/PA/PV/PleuralThe inferior vena cava size is normal . Chambers/Structures Left Atrium LA Volume: 73.9 mlLA Area: 20.77 cm^2 LA Vol. Index: 53 ml/m^2 Left Ventricle LVIDd: 4.7 cm LVIDs: 3.67 cm LV Septum Diastolic: 1.49 cm LV PW Diastolic: 1.4 cm LV FS: 21.9 % LVEDV Restrepo's:119.74 ml LVESV Restrepo's:69.78 mlLVEDVI: 86 ml/m^2 LVEF Restrepo's: 41.7 %LVESV I: 50 ml/m^2 LVOT Diameter: 1.93 cm Aorta Ao Root S of Yaquelin.: 2.57 cm Doppler/Quantitative Measurements Mitral Valve MV Peak E-Wave: 1.1 m/s MV Peak A-Wave: 0.54 m/s E/A Ratio: 2.03 Peak Gradient: 4.87 mmHg Deceleration Time: 132.2 msec MV Merlin. Peak: Aortic Valve Peak Velocity: 1.23 m/sMean Velocity: 0.8 m/s Peak Gradient: 6.03 mmHg Mean Gradient: 2.93 mmHg AV Area (continuity): 2.06 cm^2 AV VTI: 23.15 cm AV DVI: 0.71 LVOT Peak Velocity: 0.97 m/s Peak Gradient: 3.8 mmHg Mean Velocity: 0.58 m/s Mean Gradient: 1.66 mmHg LVOT Diameter: 1.93 cmLVOT VTI: 16.33 cm LVOT Area: 2.93 cm^2LVOT SV:47.75 ml LVOT CO: 3.58 l/min LVOT CI: 2.56 l/min/m^2 Tricuspid Valve TR Velocity: 3.9 m/s TR Gradient: 60.73 mmHg Procedure Note Interface, External Ris In - 09/24/2018 9:59 AM CDT Stress Echocardiography Report Demographics Patient Name JAH BARRERA Date of Study 09/23/2018 ASHLEY Gender Male Visit Number [id number] Race Unknown Room Number Number Date of 1975 Referring Nikhil Guzman Physician Age 43 year(s) Mexican Food Cook Sebastián Escobedo Interpreting Arnold Man, Physician MD Fellow SUSANA Michaud Procedure Type of Study Stress procedure:STRESS ECHO/PHARM W/DOP&TRAC (Routine) Indications:Pre-surgical evaluation of organ transplant. Clinical History CHF ASD/PFO HTN DM ESRD Height: 66 inches Weight: 39.46 kg (87 lbs) BSA: 1.4 m^2 BMI: 14.04 kg/m^2 HR: 75 bpm BP: 160/65 mmHg Rest ECG Stress echo indication: pre-transplant evaluation . Baseline ECG notable for normal sinus rhythm with HR of 78 bpm. ECG notable for LVH with repolarization abnormalities leading to diffuse TWI. no significant ST elevations or depressions at baseline. Stress Predicted HR: 177 bpm Stress Interpretation Non-diagnostic stress ECG due to inability to reach 85% MPHR and given baseline LVH with repolarization abnormalities. Non-diagnostic stress TTE as patient not able to meet >60% MPHR or >85% of MPHR and no stress images obtained. Results Global LVEF (rest): Mildly depressed (LVEF 40-50%) ECG Stress ECG notable for maximal HR of 102 bpm (57% of maximal predicted HR). Patient developed persistent hypertension with maximum dobutamine dosing of 20 mcg/kg/min leading to early termination of stress test. No significant ST changes during submaximal stress. Arrhythmias occasional PVCs during stress. Test aborted early. Symptoms Sensation of heart palpitations and pounding heart. No chest pain. Summary Stress echo indication: pre-transplant evaluation . Stress testing was non-diagnostic given inability to perform stress TTE due to BP elevations. Limited 2D views performed during silo painter imaging. Interpretation demonstrates reduced LVEF and worsening diastolic dysfunction compared to prior ROSIE performed 01/11/17. PFO noted during ROSIE on 01/11/17 not assessed during this limited study. No significant valve disease detected. Signature Findings Technical Quality: Technically adequate exam. Left Ventricle The left ventricle is chamber size (by vol index) is normal (male - LVED vol - 34-74ml/m2). LV septal thickness is moderately increased (1.5-1.6cm). LV posterior wall thickness is mildly increased (1.2-1.4cm) . All of the LV segments contract normally . LVEF by Restrepo's method of disk assessment is mildly reduced (45-49%) . Grade 3 diastolic dysfunction (marked elevated LA pressure). Left Atrium LA is well visualized. LA size is severely enlarged (>48 ml/m2) . Right Ventricle The right ventricular chamber size and systolic function are within normal limits. Right Atrium RA size is normal. Aortic Valve Normal AoV structure and function by limited views and Doppler. Mitral Valve Normal MV structure and function by available views and Doppler. Trace mitral regurgitation. Tricuspid Valve Normal TV structure and function by available views and Doppler. Rkup-on-hbkotndy tricuspid regurgitation. Estimated peak systolic PA pressure is 60-65 mmHg . Pulmonic Valve Normal PV structure and function by limited views and Doppler. Pericardium No significant pericardial effusion is visualized. IVC/SVC/PA/PV/Pleural The inferior vena cava size is normal . Chambers/Structures Left Atrium LA Volume: 73.9 ml LA Area: 20.77 cm^2 LA Vol. Index: 53 ml/m^2 Left Ventricle LVIDd: 4.7 cm LVIDs: 3.67 cm LV Septum Diastolic: 1.49 cm LV PW Diastolic: 1.4 cm LV FS: 21.9 % LVEDV Restrepo's:119.74 ml LVESV Restrepo's:69.78 ml LVEDVI: 86 ml/m^2 LVEF Restrepo's: 41.7 % LVESVI: 50 ml/m^2 LVOT Diameter: 1.93 cm Aorta Ao Root S of [place].: 2.57 cm Doppler/Quantitative Measurements Mitral Valve MV Peak E-Wave: 1.1 m/s MV Peak A-Wave: 0.54 m/s E/A Ratio: 2.03 Peak Gradient: 4.87 mmHg Deceleration Time: 132.2 msec MV Merlin. Peak: Aortic Valve Peak Velocity: 1.23 m/s Mean Velocity: 0.8 m/s Peak Gradient: 6.03 mmHg Mean Gradient: 2.93 mmHg AV Area (continuity): 2.06 cm^2 AV VTI: 23.15 cm AV DVI: 0.71 LVOT Peak Velocity: 0.97 m/s Peak Gradient: 3.8 mmHg Mean Velocity: 0.58 m/s Mean Gradient: 1.66 mmHg LVOT Diameter: 1.93 cm LVOT VTI: 16.33 cm LVOT Area: 2.93 cm^2 LVOT SV:47.75 ml LVOT CO: 3.58 l/min LVOT CI: 2.56 l/min/m^2 Tricuspid Valve TR Velocity: 3.9 m/s TR Gradient: 60.73 mmHg Performing Organization Address City/State/Zipcode Phone Number [facility] [place] [facility] [employer] TRANSFUSION SERVICE REPORT - SCAN (09/12/2018 6:05 PM CDT) Narrative Performed At ABORKimberly, manual (09/11/2018 9:59 AM CDT) ABO Grouping A [facility] Rh Factor POS [facility] Specimen Blood Performing Organization Address City/State/Zipcode Phone Number [address] [address] T Spot TB (09/11/2018 9:59 AM CDT) T-Spot TB Negative [facility] Neg Ctrl Spot Count 0 [facility] Panel A Spot 0 [facility] Panel B Spot 1 [facility] Pos Ctrl Spot Ct 0 [facility] Scan Result [facility] Specimen Blood Narrative Performed At Performing Organization Address City/[facility]/Zipcode Phone Number [facility] [address] [place] [address] LAB[address]ATORIES [address] PT/aPTT (09/11/2018 9:59 AM CDT) Protime 13.9 11.9 - 14.2 seconds [facility] INR 1.1 <=5.9 [facility] PTT 32.5 22.5 - 36.0 seconds [facility] Specimen Blood Narrative Performed At Effective 07/03/2018: PT Reference Range [facility] Change New: 11.9-14.2Previous: 11.7-14.7 RECOMMENDED COUMADIN/WARFARIN INR THERAPY RANGES STANDARD DOSE: 2.0-3.0Includes: PROPHYLAXIS for venous thrombosis, systemic embolization; TREATMENT for venous thrombosis and/or pulmonary embolus. HIGH RISK: Target INR is 2.5-3.5 for patients wiht mechanical heart valves. Performing Organization Address City/State/Zipcode Phone Number [address] [address] CENTER HIV-1 Antigen with HIV-1/2 Antibody (09/11/2018 9:59 AM CDT) HIV-1 Antigen with HIV 1&2 Nonreactive Nonreactive [facility] Antibody [facility] Specimen Blood Performing Organization Address City/State/Zipcode Phone Number [address] [address] [place] Hepatitis C Antibody (09/11/2018 9:59 AM CDT) Hepatitis C Ab Nonreactive Nonreactive [facility] Specimen Blood Performing Organization Address City/[facility] Phone Number [address] [phone] [place] Cytomegalovirus antibody, IgM (09/11/2018 9:59 AM CDT) CMV IGM Negative Negative, Equivocal [facility] Specimen Blood Narrative Performed At CMV IgM Result Interpretation: [facility] </=0.8 Al Negative 0.9-1.0 Al Equivocal >/=1.1 Al Positive Performing Organization Address [facility] Phone Number [address] [address] [place] Hepatitis B core antibody, IgM (09/11/2018 9:59 AM CDT) Hep B C IgM Nonreactive Nonreactive [facility] Specimen Blood Performing Organization Address City/[facility] Phone Number [address] [address] [place] EBV-VCA antibody, IgM (09/11/2018 9:59 AM CDT) DELFIN BOB VIRAL CAPSID Negative Negative, Equivocal [facility] ANTIGEN IGM [facility] Specimen Blood Narrative Performed At Delfin Bob Viral Capsid Antigen IgM Result [facility] Interpretation: </=0.8 Al Negative 0.9-1.0 Al Equivocal >/=1.1 Al Positive Performing Organization Address City/[facility] Centercode Phone Number [address] [address] [phone] CENTER EBV-VCA antibody, IgG (09/11/2018 9:59 AM CDT) DELFIN BOB VIRAL CAPSID Positive (A) Negative, Equivocal [facility] ANTIGEN [facility] Specimen Blood Narrative Performed At Delfin Bob Viral Capsid Antigen IgG Result [facility] Interpretation: </=0.8 Al Negative 0.9-1.0 Al Equivocal >/=1.1 Al Positive Performing Organization Address [facility] Phone Number [address] [phone] [place] RPR (09/11/2018 9:59 AM CDT) RPR Nonreactive Nonreactive [facility] Specimen Blood Performing Organization Address [facility] Phone Number [address] [phone] [place] Hepatitis B surface antibody (09/11/2018 9:59 AM CDT) Hep B S Ab 114.8 (H) <8.0 mIU/mL [facility] Specimen Blood Performing Organization Address [facility] Phone Number [address] [address] [place] Hepatitis B surface antigen (09/11/2018 9:59 AM CDT) hepatitis B Surface Ag Nonreactive Nonreactive [facility] Specimen Blood Performing Organization Address [facility] Phone Number [address] [phone] [place] Cytomegalovirus antibody, IgG (09/11/2018 9:59 AM CDT) CYTOMEGALOVIRUS, IGG Negative Negative, Equivocal [facility] Specimen Blood Narrative Performed At CMV IgG Result Interpretation: [facility] </=0.8 Al Negative 0.9-1.0 Al Equivocal >/=1.1 AlPositive Performing Organization Address [facility] Phone Number [address] [address] [phone] [place] Urinalysis, Routine (09/11/2018 9:59 AM CDT) Color, UA Yellow [facility] Clarity, UA Hazy [facility] Specific [place], UA 1.011 1.001 - 1.035 [facility] pH, UA 6.5 5.0 - 8.0 [facility] Protein, UA 600 mg/dL (A) Negative [facility] Glucose, UA 500 mg/dL (A) Negative [facility] Ketones, UA Negative Negative [facility] Bilirubin, UA Negative Negative [facility] Blood, UA Small (A) Negative [facility] Nitrite, UA Negative Negative [facility] Leukocytes, UA Negative Negative [facility] Urobilinogen, UA 0.2 0.2 - 1.0 mg/dL [facility] RBC, UA 11 /HPF [facility] WBC, UA 3 /HPF [facility] Bacteria, UA Rare [facility] Casts 8 /LPF [facility] Specimen Source [facility] Specimen Urine Performing Organization Address City/State/Zipcode Phone Number [facility] [address] [place] [address] CENTER Prothrombin time/INR (09/11/2018 9:59 AM CDT) Protime 13.9 11.9 - 14.2 seconds [facility] INR 1.1 <=5.9 [facility] Specimen Blood Narrative Performed At Effective 07/03/2018: PT Reference Range [facility] Change New: 11.9-14.2Previous: 11.7-14.7 RECOMMENDED COUMADIN/WARFARIN INR THERAPY RANGES STANDARD DOSE: 2.0-3.0Includes: PROPHYLAXIS for venous thrombosis, systemic embolization; TREATMENT for venous thrombosis and/or pulmonary embolus. HIGH RISK: Target INR is 2.5-3.5 for patients wiht mechanical heart valves. Performing Organization Address [facility] Centercode Phone Number [address] [address] [phone] CENTER Direct [facility]HG (VARGHESE)/Direct Alexus (09/11/2018 9:59 AM CDT) Direct [facility]-IGG NEGATIVE [facility] Direct [facility]HG-C3B, C3D NEGATVIE [facility] Specimen Blood Performing Organization Address [facility] Centercode Phone Number [address] [address] [phone] Urine Culture (09/11/2018 9:59 AM CDT) Result 20-29,000 col/mL Enterococcus [facility] species (A) MEDICAL [facility]ENTER Specimen Urine Narrative Performed At <10,000 col/mL skin morelia [facility] Organism Antibiotic Method Susceptibility Enterococcus species Ampicillin <=2: Susceptible Enterococcus species Linezolid 2: Susceptible Enterococcus species Nitrofurantoin <=16: Susceptible Enterococcus species Tetracycline >=16: Resistant Enterococcus species Vancomycin 1: Susceptible Performing Organization Address [facility] Phone Number [address] [address] [place] Varicella Zoster Antibody, IgG (09/11/2018 9:59 AM CDT) Varicella IgG 4.5 [facility] Specimen Blood Narrative Performed At VARICELLA ZOSTER RESULT INTERPRETATIONS: [facility] <=0.8 AlNonreactive:Presumed non-immune to VZV 0.9-1.0 AlEquivocal >=1.1 AlReactive:Presumed immune to VZV Performing Organization Address [facility]conc Phone Number [address] [address] [phone] CENTER Uric Acid (09/11/2018 9:59 AM CDT) Uric Acid 3.6 2.6 - 7.2 mg/dL [facility] Specimen Blood Performing Organization Address City/[facility] Centercode Phone Number [address] [address] [place] PSA (09/11/2018 9:59 AM CDT) PSA 0.4 0.0 - 4.0 ng/mL [facility] Specimen Blood Performing Organization Address City/[facility] Phone Number [address] [address] [place] Phosphorus (09/11/2018 9:59 AM CDT) Phosphorus 3.8 2.3 - 4.7 mg/dL [facility] Specimen Blood Performing Organization Address [facility] Phone Number [address] [address] [place] PTH, Intact (09/11/2018 9:59 AM CDT) PTH 258.2 (H) 8.5 - 72.5 pg/mL [facility] Specimen Blood Performing Organization Address [facility] Phone Number [address] [address] [place] Lactate Dehydrogenase (LDH) (09/11/2018 9:59 AM CDT) LDH 232 (H) 125 - 220 U/L [facility] Specimen Blood Performing Organization Address City/[facility] Phone Number [address] [address] [phone] CENTER Gamma Glutamyl Transferase (GGT) (09/11/2018 9:59 AM CDT) GGT 93 (H) 9 - 64 U/L [facility] Specimen Blood Performing Organization Address [facility] Phone Number [address] [address] [place] Comprehensive metabolic panel (09/11/2018 9:59 AM CDT) Protein, Total 8.0 6.0 - 8.3 gm/dL [facility] Albumin 4.1 3.5 - 5.0 g/dL [facility] Alkaline Phosphatase 143 40 - 150 U/L [facility] Total Bilirubin 0.7 0.2 - 1.2 mg/dL [facility] Sodium 133 (L) 136 - 145 meq/L [facility] Potassium 5.3 (H) 3.5 - 5.1 meq/L [facility] Chloride 93 (L) 98 - 107 meq/L [facility] CO2 27 22 - 29 meq/L [facility] BUN 46 (H) 7 - 21 mg/dL [facility] Creatinine 7.16 (H) 0.57 - 1.25 mg/dL [facility] Glucose 181 (H) 70 - 105 mg/dL [facility] Calcium 9.9 8.4 - 10.2 mg/dL [facility] AST 10 5 - 34 U/L [facility] ALT 10 6 - 55 U/L [facility] EGFR 8Comment: ESTIMATED GFR mL/min/1.73 sq m [facility] IS NOT ACCURATE [facility] CREATININE CLEARANCE IN PREDICTING GLOMERULAR FILTRATION RATE. ESTIMATED GFR IS NOT APPLICABLE FOR DIALYSIS PATIENTS. Specimen Blood Performing Organization Address City/State/Zipcode Phone Number [facility] [address] [place] [address] CENTER NM myocardial perfusion SPECT, pharm(Lexiscan) (08/28/2018 1:24 PM CDT) Specimen Narrative Performed At FINAL REPORT [email or web address] PROCEDURE: MYOCARDIAL PERFUSION SPECT IMAGING (Rest/Stress) CPT CODE: 00685 INDICATION: Q 21.1, N 18.6 CARDIOVASCULAR PROFILE: CAD History: None Symptoms: None Risk Factors: Diabetes, hypertension, dyslipidemia BMI: 12.6 Medications: Carvedilol, pravastatin, insulin STRESS PROTOCOL: Pharmacologic stress was achieved with a 10-second intravenous infusion of regadenoson 0.4 mg. The radiopharmaceutical was administered 30 seconds after the start of the regadenoson infusion. IMAGING PROTOCOL: 10.4 mCi of Tc-99m sestamibi was injected intravenously at rest, and non-gated SPECT images were obtained. Then, 29.0 mCi of Tc-99m sestamibi was injected intravenously at peak stress, and gated SPECT images were obtained. REST FINDINGS: HR: 68/min BP: 135/84 mmHg Prelim. EKG: Normal sinus rhythm, incomplete right bundle branch block, inferolateral T-wave inversions. Perfusion: Normal. LV Volume: Normal. RV Volume: Normal. STRESS FINDINGS: HR: 83/min (46% of MPHR) BP: 145/67 mmHg Prelim. EKG: No ischemic changes. Symptoms: Flushing (treatment not required). Perfusion: Normal. Wall Motion: There is moderate hypokinesis of the global LV (LVEF 37%). LV Volume: Not significantly changed from rest. IMPRESSION: 1. Abnormal study. 2. Normal myocardial perfusion. 3. Abnormal LVEF of 37% with stress. 4. Normal extracardiac tracer distribution. 5. The prior study dated 10/11/2016 showed normal perfusion and normal LVEF of 54%. Compared to prior study LVEF is now reduced. Signed: Nicolas Kimble MD Report Verified Date/Time:08/28/2018 15:00:13 Reading Location: [address] Reading Room Procedure Note Interface, External Ris In - 08/28/2018 3:02 PM CDT FINAL REPORT PROCEDURE: MYOCARDIAL PERFUSION SPECT IMAGING (Rest/Stress) CPT CODE: 11312 INDICATION: Q 21.1, N 18.6 CARDIOVASCULAR PROFILE: CAD History: None Symptoms: None Risk Factors: Diabetes, hypertension, dyslipidemia BMI: 12.6 Medications: Carvedilol, pravastatin, insulin STRESS PROTOCOL: Pharmacologic stress was achieved with a 10-second intravenous infusion of regadenoson 0.4 mg. The radiopharmaceutical was administered 30 seconds after the start of the regadenoson infusion. IMAGING PROTOCOL: 10.4 mCi of Tc-99m sestamibi was injected intravenously at rest, and non-gated SPECT images were obtained. Then, 29.0 mCi of Tc-99m sestamibi was injected intravenously at peak stress, and gated SPECT images were obtained. REST FINDINGS: HR: 68/min BP: 135/84 mmHg Prelim. EKG: Normal sinus rhythm, incomplete right bundle branch block, inferolateral T-wave inversions. Perfusion: Normal. LV Volume: Normal. RV Volume: Normal. STRESS FINDINGS: HR: 83/min (46% of MPHR) BP: 145/67 mmHg Prelim. EKG: No ischemic changes. Symptoms: Flushing (treatment not required). Perfusion: Normal. Wall Motion: There is moderate hypokinesis of the global LV (LVEF 37%). LV Volume: Not significantly changed from rest. IMPRESSION: 1. Abnormal study. 2. Normal myocardial perfusion. 3. Abnormal LVEF of 37% with stress. 4. Normal extracardiac tracer distribution. 5. The prior study dated 10/11/2016 showed normal perfusion and normal LVEF of 54%. Compared to prior study LVEF is now reduced. Signed: Nicolas Kimble MD Report Verified Date/Time: 08/28/2018 15:00:13 Reading Location: [address] Reading Room Performing Organization Address City/State/Zipcode Phone Number [email or web address] Treadmill tolerance(Non-Nuclear Treadmill) (08/28/2018 11:39 AM CDT) Specimen Narrative Performed At Protocol Name [email or web address] Socii Time In Exercise Phase 00:01:00 Max. Systolic BP 145 mmHg Max Diastolic BP 67 mmHg Max Heart Rate 83 BPM Max Predicted Heart Rate 177 BPM Reason For Termination Predetermined end point Reason for Test Pre-Op Evaluation RENAL TX Target HR Formula (220 - Age)*100% Arrhythmias Sinus Pause Resting ECG Normal sinus rhythm Incomplete Right bundle branch block left ventricular hypertrophy ST Changes No Significant Changes Overall Impression Indeterminate due to pharmacological stress Chest Pain none HR Response To Exercise BP Response To Exercise NORVASC COREG CARDURA Atorvastatin Confirmed by fellow Jb Goode ([id number]) on 08/28/2018 1:09:35 PM Confirmed by MD MCLEAN JORGE ([id number]) on 09/26/2018 10:44:00 AM Procedure Note Interface, External Ris In - 09/26/2018 10:44 AM CDT Protocol Name [email or web address] Time In Exercise Phase 00:01:00 Max. Systolic BP 145 mmHg Max Diastolic BP 67 mmHg Max Heart Rate 83 BPM Max Predicted Heart Rate 177 BPM Reason For Termination Predetermined end point Reason for Test Pre-Op Evaluation RENAL TX Target HR Formula (220 - Age)*100% Arrhythmias Sinus Pause Resting ECG Normal sinus rhythm Incomplete Right bundle branch block left ventricular hypertrophy ST Changes No Significant Changes Overall Impression Indeterminate due to pharmacological stress Chest Pain none HR Response To Exercise BP Response To Exercise NORVASC COREG CARDURA Atorvastatin Confirmed by fellow Jb Goode ([id number]) on 08/28/2018 1:09:35 PM Confirmed by MD MCLEAN JORGE ([id number]) on 09/26/2018 10:44:00 AM Performing Organization Address City/[facility] Phone Number [employer] MUSE ECG 12 lead (08/28/2018 11:30 AM CDT) Specimen Narrative Performed At Ventricular Rate 71 BPM GE MUSE Atrial Rate 71 BPM P-R Interval 188 ms QRS Duration 94 ms Q-T Interval 404 ms QTC Calculation(Bazett) 439 ms P [place] 80 degrees R [place] 85 degrees T [place] -74 degrees Normal sinus rhythm Left ventricular hypertrophy with repolarization abnormality Abnormal ECG Confirmed by MD Heard Roberto ([id number]) on 08/29/2018 10:33:04 AM Procedure Note Interface, External Ris In - 08/29/2018 10:33 AM CDT Ventricular Rate 71 BPM Atrial Rate 71 BPM P-R Interval 188 ms QRS Duration 94 ms Q-T Interval 404 ms QTC Calculation(Bazett) 439 ms P [place] 80 degrees R [place] 85 degrees T [place] -74 degrees Normal sinus rhythm Left ventricular hypertrophy with repolarization abnormality Abnormal ECG Confirmed by MD Heard Roberto ([id number]) on 08/29/2018 10:33:04 AM Performing Organization Address City/[facility] Phone Number GE MUSE CTA AAA and Runoff (06/25/2018 9:43 AM CDT) Specimen Narrative Performed At Addendum Begins GE RIS REPORT STATUS:A ADDENDUM: Study reviewed by radiology. Agree with the nonvascular findings as described below. Signed: Austin Hebert MD Report Verified Date/Time:06/26/2018 17:55:39 Reading Location: [place] [id number] Angio Body Reading Room Addendum Ends FINAL REPORT CT angiography of the abdominal aorta and runoff, 25 Jun 2018 INDICATION: This is a 42 year old male with with a diagnosis of peripheral vascular disease, and end-stage renal disease, presents for assessment. There is a concern for peripheral vascular disease. This study is performed in an attempt to avoid an invasive procedure. TECHNIQUE: Spiral acquisition before and during intravenous contrast administration using a Siemens CT scanner. Images were obtained before and during the dynamic passage of intravenous contrast material.Multi-planar 3-D volume-rendering reconstruction was performed using an independent workstation interactively by the interpreting physician as well as the 3-D specialist for optimal visualisation of the abdominal aorta, pelvic arteries, and its proximal branches. Please refer to the contrast sheet scanned in the EPIC system for the amount and route of contrast given. This exam was performed according to our departmental dose-optimisation programme, which includes automated exposure control, adjustment of the mA and/or kV according to patient size and/or use of iterative reconstruction technique. Dose modulation, iterative reconstruction, and/or weight based adjustment of the mA/kV was utilized to reduce the radiation dose to as low as reasonably achievable. FINDINGS: VASCULAR: The abdominal aorta is normal in course, calibre and contour. Only minimal atherosclerosis identified infrarenal abdominal aorta. No ectasia or aneurysmal dilation is seen. There is no evidence of acute aortic pathology, specifically, there is no dissection, intramural hematoma, or contained rupture. The coeliac axis, SMA, CÉSAR are widely patent. Patient has end-stage renal disease, and the renal arteries are small in calibre. Quantitative dimensions of the abdominal aorta are as follows: 1.4 cm at the mesenteric segment; 1.3 cm at the renal segment,; and 1.1 cm at the aortic bifurcation. The common iliac, external iliac, common femoral, and the visualized superficial femoral arteries, bilaterally, are widely patent, and no obvious atherosclerosis is present. Dairy Equipment Mechanic dimensions of the left and the right external iliac arteries are 4 and 4 mm, respectively. Similarly, the associated pelvic veins are patent with no venous thrombosis identified.[employer]airy [employer] Mechanic dimensions of the left and the right external iliac veins 8 - 9 mm, bilaterally. The Hounsfield unit of the pelvic veins are approximately 100, bilaterally. In the left, the left SFA are widely patent, with only minimal luminal irregularities present. No stenosis is seen. The profunda system is unremarkable. The left popliteal artery is also patent with no obstructive lesion identified. In the left lower extremity, the left tibioperoneal trunk has some luminal regularities identified with no stenosis present. The left anterior tibial artery is widely patent, and the dorsalis pedis artery is well seen. Both in the first and second dynamic data set, diffuse atherosclerosis is identified in the course of the left posterior tibial artery, and there is various area of significant stenosis along the course of the artery. The plantar arch is seen distally. In the right, the right SFA is seen to be patent, with no obstructive lesion identified. Minimal atherosclerosis is seen. The right profunda system is unremarkable. The right popliteal artery is widely patent. In the right lower extremity, the right tibioperoneal trunk is widely patent. The right anterior tibial artery has no obstructive lesion identified, well seen down to level of the ankle and the dorsalis pedis artery is well seen. The right peroneal artery is also well seen down to level of the ankle and become a small calibre vessel distally. Diffuse atherosclerosis is identified along the course of the right posterior tibial artery and there are also scattered focal lesions identified. The plantar arch is well seen distally. NON-VASCULAR: Right basal pleural effusion is identified. Some dependent changes are seen. In the abdomen, the liver and spleen appears unremarkable. The liver edge is smooth. No abnormal enhancing structure is identified. The gallbladder, adrenal glands, and pancreas appears unremarkable. No acute renal pathology is seen and no hydronephrosis or perirenal fluid collection is identified. Subcentimeter hypodensity is identified in the posterior aspect of the left kidney, at image 42, too small to characterize likely represent a tiny renal cyst. Bowel is not well assessed by CT angiography as enteric contrast is not given. No obvious bowel dilation is identified. No free air free fluid seen abdomen and pelvis. No significant retroperitoneal adenopathy is identified. Some small lymph nodes are seen in both groins, considered nonspecific in nature. The prostate gland the bladder appears unremarkable. In the bony windows, no acute bony pathology is identified. CONCLUSIONS: 1.The abdominal aorta is normal in course, calibre and contour. Minimal atherosclerosis identified. No ectasia or aneurysmal dilation is seen.There is no evidence of acute aortic pathology, specifically, there is no dissection, intramural hematoma, or contained rupture. Quantitative dimension of the abdominal aorta are as noted. The pelvic arteries and veins are widely patent with no arterial stenosis or venous thrombosis identified. Dairy Equipment Mechanic dimensions of the left and the right external iliac arteries and veins are as described above. 2. Widely patent mesenteric arteries. 3. Status of the peripheral vasculature is as described above. 4. Other findings as described above. 5. An addendum will be dictated regarding the non-vascular findings by the Custom Stock Maker Radiologist. Signed: Justyn Gilliland MD Report Verified Date/Time:06/25/2018 10:00:02 Reading Location: [facility] P047 Cardiology MRI Procedure Note Interface, External Ris In - 06/26/2018 5:57 PM CDT Addendum Begins REPORT STATUS:A ADDENDUM: Study reviewed by radiology. Agree with the nonvascular findings as described below. Signed: Austin Hebert MD Report Verified Date/Time: 06/26/2018 17:55:39 Reading Location: [facility] P048 Angio Body Reading Room Addendum Ends FINAL REPORT CT angiography of the abdominal aorta and runoff, 25 Jun 2018 INDICATION: This is a 42 year old male with with a diagnosis of peripheral vascular disease, and end-stage renal disease, presents for assessment. There is a concern for peripheral vascular disease. This study is performed in an attempt to avoid an invasive procedure. TECHNIQUE: Spiral acquisition before and during intravenous contrast administration using a Siemens CT scanner. Images were obtained before and during the dynamic passage of intravenous contrast material. Multi-planar 3-D volume-rendering reconstruction was performed using an independent workstation interactively by the interpreting physician as well as the 3-D specialist for optimal visualisation of the abdominal aorta, pelvic arteries, and its proximal branches. Please refer to the contrast sheet scanned in the EPIC system for the amount and route of contrast given. This exam was performed according to our departmental dose-optimisation programme, which includes automated exposure control, adjustment of the mA and/or kV according to patient size and/or use of iterative reconstruction technique. Dose modulation, iterative reconstruction, and/or weight based adjustment of the mA/kV was utilized to reduce the radiation dose to as low as reasonably achievable. FINDINGS: VASCULAR: The abdominal aorta is normal in course, calibre and contour. Only minimal atherosclerosis identified infrarenal abdominal aorta. No ectasia or aneurysmal dilation is seen. There is no evidence of acute aortic pathology, specifically, there is no dissection, intramural hematoma, or contained rupture. The coeliac axis, SMA, CÉSAR are widely patent. Patient has end-stage renal disease, and the renal arteries are small in calibre. Quantitative dimensions of the abdominal aorta are as follows: 1.4 cm at the mesenteric segment; 1.3 cm at the renal segment,; and 1.1 cm at the aortic bifurcation. The common iliac, external iliac, common femoral, and the visualized superficial femoral arteries, bilaterally, are widely patent, and no obvious atherosclerosis is present. Dairy Equipment Mechanic dimensions of the left and the right external iliac arteries are 4 and 4 mm, respectively. Similarly, the associated pelvic veins are patent with no venous thrombosis identified. Dairy Equipment Mechanic dimensions of the left and the right external iliac veins 8 - 9 mm, bilaterally. The Hounsfield unit of the pelvic veins are approximately 100, bilaterally. In the left, the left SFA are widely patent, with only minimal luminal irregularities present. No stenosis is seen. The profunda system is unremarkable. The left popliteal artery is also patent with no obstructive lesion identified. In the left lower extremity, the left tibioperoneal trunk has some luminal regularities identified with no stenosis present. The left anterior tibial artery is widely patent, and the dorsalis pedis artery is well seen. Both in the first and second dynamic data set, diffuse atherosclerosis is identified in the course of the left posterior tibial artery, and there is various area of significant stenosis along the course of the artery. The plantar arch is seen distally. In the right, the right SFA is seen to be patent, with no obstructive lesion identified. Minimal atherosclerosis is seen. The right profunda system is unremarkable. The right popliteal artery is widely patent. In the right lower extremity, the right tibioperoneal trunk is widely patent. The right anterior tibial artery has no obstructive lesion identified, well seen down to level of the ankle and the dorsalis pedis artery is well seen. The right peroneal artery is also well seen down to level of the ankle and become a small calibre vessel distally. Diffuse atherosclerosis is identified along the course of the right posterior tibial artery and there are also scattered focal lesions identified. The plantar arch is well seen distally. NON-VASCULAR: Right basal pleural effusion is identified. Some dependent changes are seen. In the abdomen, the liver and spleen appears unremarkable. The liver edge is smooth. No abnormal enhancing structure is identified. The gallbladder, adrenal glands, and pancreas appears unremarkable. No acute renal pathology is seen and no hydronephrosis or perirenal fluid collection is identified. Subcentimeter hypodensity is identified in the posterior aspect of the left kidney, at image 42, too small to characterize likely represent a tiny renal cyst. Bowel is not well assessed by CT angiography as enteric contrast is not given. No obvious bowel dilation is identified. No free air free fluid seen abdomen and pelvis. No significant retroperitoneal adenopathy is identified. Some small lymph nodes are seen in both groins, considered nonspecific in nature. The prostate gland the bladder appears unremarkable. In the bony windows, no acute bony pathology is identified. CONCLUSIONS: 1. The abdominal aorta is normal in course, calibre and contour. Minimal atherosclerosis identified. No ectasia or aneurysmal dilation is seen. There is no evidence of acute aortic pathology, specifically, there is no dissection, intramural hematoma, or contained rupture. Quantitative dimension of the abdominal aorta are as noted. The pelvic arteries and veins are widely patent with no arterial stenosis or venous thrombosis identified. Dairy Equipment Mechanic dimensions of the left and the right external iliac arteries and veins are as described above. 2. Widely patent mesenteric arteries. 3. Status of the peripheral vasculature is as described above. 4. Other findings as described above. 5. An addendum will be dictated regarding the non-vascular findings by the Custom Stock Maker Radiologist. 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 [phone] Code Status Date Activated Date Inactivated Comments Full Code 10/11/2018 7:16 AM 10/11/2018 5:46 PM This code status was determined by: Patient Full Code 06/26/2017 10:35 PM 07/15/2017 5:25 PM This code status was determined by: Patient Full Code 02/23/2017 8:00 AM 02/23/2017 8:59 PM This code status was determined by: Patient Full Code 05/08/2016 6:36 AM 05/08/2016 2:30 PM This code status was determined by: Patient
--- OUTSIDE RECORDS SUMMARY | 2018-10-26 06:42 | XMS REPORT ---
:1975 [facility] [address] [place] [address] Care Team Providers Name Role Phone JAZMYNE ACEVES Unavailable Unavailable FERCHO MAGALLON Unavailable Unavailable JOHNSON GARCIA Unavailable Unavailable OSCAR LEVY Unavailable Unavailable BENY VALLES Unavailable Unavailable Problems This patient has no known problems. Allergies, Adverse Reactions, Alerts This patient has no known allergies or adverse reactions. Medications This patient has no known medications. Results Test Description Test Time Test Comments Text Results Atomic Results Result Comments BASIC METABOLIC PANEL 2018-10-11 08:50:00 Test Item Value Reference Range Comments SODIUM (BEAKER) (test 135 meq/L 136-145 zgii=973) POTASSIUM (BEAKER) (test 5.0 meq/L 3.5-5.1 bfwd=024) CHLORIDE (BEAKER) (test 97 meq/L 98-107 cxlu=671) CO2 (BEAKER) (test iyjh=103) 27 meq/L 22-29 BLOOD UREA NITROGEN (BEAKER) 49 mg/dL 7-21 (test vtzq=118) CREATININE (BEAKER) (test 6.52 mg/dL 0.57-1.25 vhvx=487) GLUCOSE RANDOM (BEAKER) 207 mg/dL 70-105 (test wvmv=679) CALCIUM (BEAKER) (test 9.4 mg/dL 8.4-10.2 esgz=754) EGFR (BEAKER) (test 9 mL/min/1.73 sq m ESTIMATED GFR IS NOT tmuc=9131) ACCURATE CREATININE CLEARANCE IN PREDICTING GLOMERULAR FILTRATION RATE. ESTIMATED GFR IS NOT APPLICABLE FOR DIALYSIS PATIENTS. HEPATIC FUNCTION [id number] 08:42:00 Test Item Value Reference Range Comments TOTAL PROTEIN (BEAKER) (test lwnn=431) 7.4 gm/dL 6.0-8.3 ALBUMIN (BEAKER) (test noaz=2213) 3.9 g/dL 3.5-5.0 BILIRUBIN TOTAL (BEAKER) (test wvyp=161) 0.6 mg/dL 0.2-1.2 BILIRUBIN DIRECT (BEAKER) (test ldht=423) 0.3 mg/dL 0.1-0.5 ALKALINE PHOSPHATASE (BEAKER) (test fmtz=753) 128 U/L 40-150 AST (SGOT) (BEAKER) (test oztw=296) 14 U/L 5-34 ALT (SGPT) (BEAKER) (test givb=037) 12 U/L 6-55 CBC W/PLT COUNT & AUTO [id number] 08:24:00 Test Item Value Reference Range Comments WHITE BLOOD CELL COUNT (BEAKER) (test btis=384) 6.6 K/ L 3.5-10.5 RED BLOOD CELL COUNT (BEAKER) (test rnli=182) 4.14 M/ L 4.63-6.08 HEMOGLOBIN (BEAKER) (test bwra=106) 12.6 GM/DL 13.7-17.5 HEMATOCRIT (BEAKER) (test rkgl=372) 40.2 % 40.1-51.0 MEAN CORPUSCULAR VOLUME (BEAKER) (test qjrj=325) 97.1 fL 79.0-92.2 MEAN CORPUSCULAR HEMOGLOBIN (BEAKER) (test 30.4 pg 25.7-32.2 twcf=657) MEAN CORPUSCULAR HEMOGLOBIN CONC (BEAKER) (test 31.3 GM/DL 32.3-36.5 omrg=317) RED CELL DISTRIBUTION WIDTH (BEAKER) (test 13.9 % 11.6-14.4 bsnr=424) PLATELET COUNT (BEAKER) (test trxj=420) 146 K/CU MM 150-450 MEAN PLATELET VOLUME (BEAKER) (test rejk=335) 13.1 fL 9.4-12.4 NUCLEATED RED BLOOD CELLS (BEAKER) (test 0 /100 WBC 0-0 ubcw=501) NEUTROPHILS RELATIVE PERCENT (BEAKER) (test 69 % kacx=354) LYMPHOCYTES RELATIVE PERCENT (BEAKER) (test 13 % vzfq=830) MONOCYTES RELATIVE PERCENT (BEAKER) (test 12 % cwdn=809) EOSINOPHILS RELATIVE PERCENT (BEAKER) (test 6 % ulbt=437) BASOPHILS RELATIVE PERCENT (BEAKER) (test 1 % mcyi=109) NEUTROPHILS ABSOLUTE COUNT (BEAKER) (test 4.57 K/ L 1.78-5.38 jyhl=481) LYMPHOCYTES ABSOLUTE COUNT (BEAKER) (test 0.84 K/ L 1.32-3.57 equc=509) MONOCYTES ABSOLUTE COUNT (BEAKER) (test 0.76 K/ L 0.30-0.82 qmjs=993) EOSINOPHILS ABSOLUTE COUNT (BEAKER) (test 0.38 K/ L 0.04-0.54 wrou=494) BASOPHILS ABSOLUTE COUNT (BEAKER) (test 0.05 K/ L 0.01-0.08 zqzj=771) IMMATURE GRANULOCYTES-RELATIVE PERCENT (BEAKER) 1 % 0-1 (test etrw=7296) URINE [id number] 14:09:00 Test Item Value Reference Range Comments CULTURE (BEAKER) (test ENTEROCOCCUS SPECIES 20-29,000 col/mL qont=2021) Enterococcus species Ampicillin (test code=26) Linezolid (test code=40) Nitrofurantoin (test code=23) Tetracycline (test code=2) Vancomycin (test code=13) <10,000 col/mL skin floraCYTOMEGALOVIRUS ANTIBODY, [id number] 15:13:00 Test Item Value Reference Range Comments CYTOMEGALOVIRUS IGM ANTIBODY (BEAKER) (test Negative Negative, Equivocal ijpz=2864) CMV IgM Result Interpretation: </=0.8 Al Negative 0.9-1.0 Al Equivocal >/=1.1 Al PositiveCYTOMEGALOVIRUS ANTIBODY, [id number] 14:29:00 Test Item Value Reference Range Comments CYTOMEGALOVIRUS, IGG (BEAKER) (test bffj=8193) Negative Negative, Equivocal CMV IgG Result Interpretation: </=0.8 Al Negative 0.9-1.0 Al Equivocal &gt ;/=1.1 Al PositiveEBV ANTIBODY, [id number] 14:29:00 Test Item Value Reference Range Comments DELFIN BOB VIRAL CAPSID ANTIGEN IGG (BEAKER) Positive Negative, Equivocal (test cdgy=0160) Delfin Bob Viral Capsid Antigen IgG Result Interpretation: </=0.8 Al Negative 0.9-1.0 Al Equivocal >/=1.1 Al PositiveEBV ANTIBODY, [id number] 14:29:00 Test Item Value Reference Range Comments DELFIN BOB VIRAL CAPSID ANTIGEN IGM (BEAKER) Negative Negative, Equivocal (test tjfu=4215) Delfin Bob Viral Capsid Antigen IgM Result Interpretation: </=0.8 Al Negative 0.9-1.0 Al Equivocal >/=1.1 Al [id number] 11:06:00 Test Item Value Reference Range Comments RPR SCREEN (BEAKER) (test klkv=069) Nonreactive Nonreactive VARICELLA ZOSTER ANTIBODY, [id number] 09:46:00 Test Item Value Reference Range Comments VARICELLA ZOSTER IGG (AL) (BEAKER) (test feqf=0789) 4.5 VARICELLA ZOSTER RESULT INTERPRETATIONS: <=0.8 Al Nonreactive: Presumed non-immune to VZV 0.9-1.0 Al Equivocal >=1.1 Al Reactive: Presumed immune to [id number] 14:12:00 Test Item Value Reference Range Comments PROSTATE SPECIFIC ANTIGEN (BEAKER) (test zogn=987) 0.4 ng/mL 0.0-4.0 HEPATITIS B SURFACE [id number] 13:35:00 Test Item Value Reference Range Comments HEPATITIS B SURFACE ANTIGEN (2) (BEAKER) (test Nonreactive Nonreactive ogrm=6010) HEPATITIS B SURFACE [id number] 13:35:00 Test Item Value Reference Range Comments HEPATITIS B SURFACE ANTIBODY (BEAKER) (test 114.8 mIU/mL <8.0 kfck=715) HEPATITIS B CORE ANTIBODY, [id number] 13:35:00 Test Item Value Reference Range Comments HEPATITIS B CORE IGM ANTIBODY (BEAKER) (test Nonreactive Nonreactive axfx=024) HEPATITIS C [id number] 13:35:00 Test Item Value Reference Range Comments HEPATITIS C ANTIBODY (BEAKER) (test wnkr=437) Nonreactive Nonreactive HIV-1 ANTIGEN WITH HIV-1/2 [id number] 13:35:00 Test Item Value Reference Range Comments HIV-1 ANTIGEN WITH HIV 1\\T\\2 ANTIBODY (2) Nonreactive Nonreactive (BEAKER) (test iwwy=8995) COMPREHENSIVE METABOLIC [id number] 13:24:00 Test Item Value Reference Range Comments TOTAL PROTEIN (BEAKER) 8.0 gm/dL 6.0-8.3 (test fnxj=128) ALBUMIN (BEAKER) (test 4.1 g/dL 3.5-5.0 krvh=4327) ALKALINE PHOSPHATASE 143 U/L 40-150 (BEAKER) (test nehn=890) BILIRUBIN TOTAL (BEAKER) 0.7 mg/dL 0.2-1.2 (test pany=804) SODIUM (BEAKER) (test 133 meq/L 136-145 ygwt=645) POTASSIUM (BEAKER) (test 5.3 meq/L 3.5-5.1 nbnh=226) CHLORIDE (BEAKER) (test 93 meq/L 98-107 fumf=545) CO2 (BEAKER) (test 27 meq/L 22-29 mamf=508) BLOOD UREA NITROGEN 46 mg/dL 7-21 (BEAKER) (test tnse=969) CREATININE (BEAKER) (test 7.16 mg/dL 0.57-1.25 pjcp=523) GLUCOSE RANDOM (BEAKER) 181 mg/dL 70-105 (test pmqt=591) CALCIUM (BEAKER) (test 9.9 mg/dL 8.4-10.2 fsel=284) AST (SGOT) (BEAKER) (test 10 U/L 5-34 vsyp=691) ALT (SGPT) (BEAKER) (test 10 U/L 6-55 guel=907) EGFR (BEAKER) (test 8 mL/min/1.73 sq m ESTIMATED GFR IS NOT znrs=3832) ACCURATE CREATININE CLEARANCE IN PREDICTING GLOMERULAR FILTRATION RATE. ESTIMATED GFR IS NOT APPLICABLE FOR DIALYSIS PATIENTS. URIC [id number] 13:23:00 Test Item Value Reference Range Comments URIC ACID (BEAKER) (test abmc=573) 3.6 mg/dL 2.6-7.2 [id number] 13:23:00 Test Item Value Reference Range Comments PHOSPHORUS (BEAKER) (test wsot=543) 3.8 mg/dL 2.3-4.7 GAMMA GLUTAMYL TRANSFERASE (GGT)2018-09-11 13:23:00 Test Item Value Reference Range Comments GAMMA GLUTAMYL TRANSFERASE (BEAKER) (test wdst=787) 93 U/L 9-64 LACTATE DEHYDROGENASE (LDH)2018-09-11 13:23:00 Test Item Value Reference Range Comments LACTATE DEHYDROGENASE (BEAKER) (test cmcb=084) 232 U/L 125-220 PTH, [id number] 13:20:00 Test Item Value Reference Range Comments PARATHYROID HORMONE INTACT (BEAKER) (test 258.2 pg/mL 8.5-72.5 bdxi=772) URINALYSIS W/ [id number] 13:17:00 Test Item Value Reference Range Comments COLOR (BEAKER) (test faio=855) Yellow CLARITY (BEAKER) (test xlcs=816) Hazy SPECIFIC GRAVITY UA (BEAKER) (test sdul=555) 1.011 1.001-1.035 PH UA (BEAKER) (test rwjk=832) 6.5 5.0-8.0 PROTEIN UA (BEAKER) (test qryf=332) 600 mg/dL Negative GLUCOSE UA (BEAKER) (test gmcw=938) 500 mg/dL Negative KETONES UA (BEAKER) (test vout=865) Negative Negative BILIRUBIN UA (BEAKER) (test mgof=411) Negative Negative BLOOD UA (BEAKER) (test eftj=237) Small Negative NITRITE UA (BEAKER) (test zwzx=279) Negative Negative LEUKOCYTE ESTERASE UA (BEAKER) (test lrcx=138) Negative Negative UROBILINOGEN UA (BEAKER) (test rfnz=418) 0.2 mg/dL 0.2-1.0 RBC UA (BEAKER) (test zmgs=104) 11 /HPF WBC UA (BEAKER) (test nodi=213) 3 /HPF BACTERIA (BEAKER) (test hfgr=496) Rare CASTS (BEAKER) (test skyi=9204) 8 /LPF SOURCE(BEAKER) (test qjoh=7460) PROTHROMBIN TIME/[id number] 12:53:00 Test Item Value Reference Range Comments PROTIME (BEAKER) (test maxv=808) 13.9 seconds 11.9-14.2 INR (BEAKER) (test gwic=943) 1.1 <=5.9 Effective 07/03/2018: PT Reference Range ChangeNew: 11.9-14.2 Previous: 11.7- 14.7RECOMMENDED COUMADIN/WARFARIN INR THERAPY RANGESSTANDARD DOSE: 2.0-3.0 Includes: PROPHYLAXIS for venous thrombosis, systemic embolization; TREATMENT for venous thrombosis and/or pulmonary embolus.HIGH RISK: Target INR is2.5-3.5 for patients wiht mechanical heart valves.PT/[id number] 12:53:00 Test Item Value Reference Range Comments PROTIME (BEAKER) (test nvrn=540) 13.9 seconds 11.9-14.2 INR (BEAKER) (test qvhp=742) 1.1 <=5.9 PARTIAL THROMBOPLASTIN TIME (BEAKER) (test 32.5 seconds 22.5-36.0 koyy=339) Effective 07/03/2018: PT Reference Range ChangeNew: 11.9-14.2 Previous: 11.7- 14.7RECOMMENDED COUMADIN/WARFARIN INR THERAPY RANGESSTANDARD DOSE: 2.0-3.0 Includes: PROPHYLAXIS for venous thrombosis, systemic embolization; TREATMENT for venous thrombosis and/or pulmonary embolus.HIGH RISK: Target INR is2.5-3.5 for patients wiht mechanical heart valves.CBC W/PLT COUNT & AUTO [id number] 12:46:00 Test Item Value Reference Range Comments WHITE BLOOD CELL COUNT (BEAKER) (test ufjt=896) 7.1 K/ L 3.5-10.5 RED BLOOD CELL COUNT (BEAKER) (test zrds=863) 4.42 M/ L 4.63-6.08 HEMOGLOBIN (BEAKER) (test htef=402) 13.4 GM/DL 13.7-17.5 HEMATOCRIT (BEAKER) (test unvs=132) 43.1 % 40.1-51.0 MEAN CORPUSCULAR VOLUME (BEAKER) (test rssn=749) 97.5 fL 79.0-92.2 MEAN CORPUSCULAR HEMOGLOBIN (BEAKER) (test 30.3 pg 25.7-32.2 avdf=396) MEAN CORPUSCULAR HEMOGLOBIN CONC (BEAKER) (test 31.1 GM/DL 32.3-36.5 xyfe=731) RED CELL DISTRIBUTION WIDTH (BEAKER) (test 13.3 % 11.6-14.4 qhbs=100) PLATELET COUNT (BEAKER) (test qbvf=341) 150 K/CU MM 150-450 MEAN PLATELET VOLUME (BEAKER) (test spie=615) 12.8 fL 9.4-12.4 NUCLEATED RED BLOOD CELLS (BEAKER) (test 0 /100 WBC 0-0 npme=216) NEUTROPHILS RELATIVE PERCENT (BEAKER) (test 60 % fkhs=877) LYMPHOCYTES RELATIVE PERCENT (BEAKER) (test 18 % fffc=002) MONOCYTES RELATIVE PERCENT (BEAKER) (test 12 % omnv=472) EOSINOPHILS RELATIVE PERCENT (BEAKER) (test 8 % bhvg=122) BASOPHILS RELATIVE PERCENT (BEAKER) (test 1 % pvjw=351) NEUTROPHILS ABSOLUTE COUNT (BEAKER) (test 4.28 K/ L 1.78-5.38 toik=273) LYMPHOCYTES ABSOLUTE COUNT (BEAKER) (test 1.29 K/ L 1.32-3.57 qacn=689) MONOCYTES ABSOLUTE COUNT (BEAKER) (test 0.84 K/ L 0.30-0.82 eoko=552) EOSINOPHILS ABSOLUTE COUNT (BEAKER) (test 0.55 K/ L 0.04-0.54 pfsh=799) BASOPHILS ABSOLUTE COUNT (BEAKER) (test 0.10 K/ L 0.01-0.08 uorw=178) IMMATURE GRANULOCYTES-RELATIVE PERCENT (BEAKER) 0 % 0-1 (test jads=5069) [facility] IMAGING, MULTI, PHARM, [id number] 15:00:00FINAL REPORT PROCEDURE: MYOCARDIAL PERFUSION SPECT IMAGING (Rest/Stress)CPT CODE : 42167 INDICATION: Q 21.1, N 18.6 CARDIOVASCULAR PROFILE:CAD History: NoneSymptoms: NoneRisk Factors: Diabetes, hypertension, dyslipidemiaBMI: 12.6Medications: Carvedilol, pravastatin, insulin STRESS PROTOCOL:Pharmacologic stress was achieved with a 10-second intravenous infusion of regadenoson 0.4mg. The radiopharmaceutical was administered 30 seconds after the start of the regadenoson infusion.IMAGING PROTOCOL:10.4 mCi of Tc-99m sestamibi was injected intravenously at rest, and non-gated SPECT images were obtained. Then, 29.0 mCi of Tc-99m sestamibi was injected intravenously at peak stress,and gated SPECT images were obtained. REST FINDINGS:HR: 68/minBP: 135/84 mmHgPrelim. EKG: Normal sinus rhythm, incomplete right bundle branch block, inferolateral T-wave inversions.Perfusion: Normal.LVVolume: Normal.RV Volume: Normal. STRESS FINDINGS :HR: 83/min (46% of MPHR)BP: 145/67 mmHgPrelim. EKG: No ischemic changes.Symptoms: Flushing (treatment not required).Perfusion: Normal.Wall Motion: There is moderate hypokinesis of the global LV (LVEF 37%).LV Volume: Not significantly changed from rest.IMPRESSION:1. Abnormal study.2. Normal myocardial perfusion. 3. Abnormal LVEF of 37% with stress.4. Normal extracardiac tracer distribution.5. The prior study dated 10/11/2016 showed normal perfusion andnormal LVEF of 54%. Compared to prior study LVEF is now reduced. Signed: Nicolas Kimble MDReport Verified Date/Time: 08/28/2018 15:00: 13 Reading Location: [address] [address] Nuc Med Reading Room CT, CTA AAA, W/ PARKER.EXT.[id number] 17:55:00Addendum BeginsREPORT STATUS:A ADDENDUM: Study reviewed by radiology. Agree with the nonvascular findings as described below. Signed: EmileeAustin MDReport Verified Date/ Time: 06/26/2018 17:55:39 Reading Location: [place] [address] Angio Body Reading RoomAddendum EndsFINAL REPORT CT angiography of the abdominal aorta and runoff, 25 Jun 2018 INDICATION:This is a 42 year old male with with a diagnosis of peripheral vascular disease, and end-stage renaldisease , presents for assessment. There is a concern for peripheral vascular disease. This study is performed in an attempt to avoid an invasive procedure. TECHNIQUE : Spiral acquisition before and during intravenous contrast administration using a Siemens CT scanner. Images were obtained before and during the dynamic passage of intravenous contrast material. Multi-planar 3-D volume-rendering reconstruction was performed using an independent workstation interactively by the interpreting physician aswell as the 3-D specialist for optimal visualisation of the abdominal aorta, pelvic arteries, and its proximal branches. Please refer to the contrast sheet scanned in the EPIC system for the amount androute of contrast given. This exam was performed [...] patent, and no obvious atherosclerosis is present. Director Of Loss Prevention dimensions of the left and the right external iliac arteries are 4 and 4 mm, respectively. Similarly, the associated pelvic veins are patent with no venous thrombosis identified. Director Of Loss Prevention dimensions of the left and the right external iliac veins 8 - 9 mm, bilaterally. The Hounsfield unit of the pelvic veins are approximately 100, bilaterally. In the left, the left SFA are widely patent, with only minimal luminal irregularities present. No stenosis is seen. The profunda system is unremarkable. The left popliteal artery is also patent with no obstructive lesion identified.In the left lower extremity, the left tibioperoneal [...] of the ankle and become a small calibrevessel distally. Diffuse atherosclerosis is identified along the [...] rupture. Quantitative dimension of the abdominal aorta areas noted. The pelvic arteries and veins are widely patent with no arterial stenosis or venous thrombosis identified. Director Of Loss Prevention dimensions of the left and the right external iliac arteries and veins are as described above. 2. Widely patent mesenteric arteries. 3. Status of the peripheral vasculature is as described above. 4. Other findings as described above. 5. An addendum will be dictated regarding the non-vascular findings by the Scraper Operator Radiologist. Signed: Justyn Gilliland MDReport Verified Date/Time: 06/25/2018 10:00:02 Reading Location: [place] [address] Cardiology MRI AFB CULTURE + [id number] 14:21: 00 Test Item Value Reference Range Comments CULTURE (BEAKER) (test No acid-fast bacilli isolated pddh=3411) in 42 days AFB SMEAR (BEAKER) (test No acid fast bacilli seen zkbe=596) AFB CULTURE + [id number] 14:21:00 Test Item Value Reference Range Comments CULTURE (BEAKER) (test No acid-fast bacilli isolated nptc=7517) in 42 days AFB SMEAR (BEAKER) (test No acid fast bacilli seen uquy=368) AFB CULTURE + [id number] 14:21:00 Test Item Value Reference Range Comments CULTURE (BEAKER) (test No acid-fast bacilli isolated pdfb=7721) in 42 days AFB SMEAR (BEAKER) (test No acid fast bacilli seen yfmk=474) AFB CULTURE + [id number] 14:21:00 Test Item Value Reference Range Comments CULTURE (BEAKER) (test No acid-fast bacilli isolated jopt=5319) in 42 days AFB SMEAR (BEAKER) (test No acid fast bacilli seen fhjm=689) AFB CULTURE + [id number] 14:21:00 Test Item Value Reference Range Comments CULTURE (BEAKER) (test No acid-fast bacilli isolated hbkd=5986) in 42 days AFB SMEAR (BEAKER) (test No acid fast bacilli seen mucb=935) AFB CULTURE + [id number] 14:21:00 Test Item Value Reference Range Comments CULTURE (BEAKER) (test No acid-fast bacilli isolated jecz=2476) in 42 days AFB SMEAR (BEAKER) (test No acid fast bacilli seen aavd=710) AFB CULTURE + [id number] 14:21:00 Test Item Value Reference Range Comments CULTURE (BEAKER) (test No acid-fast bacilli isolated hhll=0419) in 42 days AFB SMEAR (BEAKER) (test No acid fast bacilli seen rfxx=673) AFB CULTURE + [id number] 14:21:00 Test Item Value Reference Range Comments CULTURE (BEAKER) (test No acid-fast bacilli isolated gyrg=0176) in 42 days AFB SMEAR (BEAKER) (test No acid fast bacilli seen ujqu=956) FUNGUS CULTURE + [id number] 16:40:00 Test Item Value Reference Range Comments CULTURE (BEAKER) (test No fungus isolated in 28 days bvzh=5071) FUNGUS SMEAR (BEAKER) (test No fungi seen idlw=9798) FUNGUS CULTURE + [id number] 16:40:00 Test Item Value Reference Range Comments CULTURE (BEAKER) (test No fungus isolated in 28 days lumw=9624) FUNGUS SMEAR (BEAKER) (test No fungi seen aiwc=1672) FUNGUS CULTURE + [id number] 16:40:00 Test Item Value Reference Range Comments CULTURE (BEAKER) (test No fungus isolated in 28 days kljp=8612) FUNGUS SMEAR (BEAKER) (test No fungi seen cniu=4192) FUNGUS CULTURE + [id number] 16:40:00 Test Item Value Reference Range Comments CULTURE (BEAKER) (test No fungus isolated in 28 days kffy=5893) FUNGUS SMEAR (BEAKER) (test No fungi seen dizv=8083) FUNGUS CULTURE + [id number] 16:40:00 Test Item Value Reference Range Comments CULTURE (BEAKER) (test No fungus isolated in 28 days flsw=0201) FUNGUS SMEAR (BEAKER) (test No fungi seen dedm=2739) FUNGUS CULTURE + [id number] 16:40:00 Test Item Value Reference Range Comments CULTURE (BEAKER) (test No fungus isolated in 28 days lwql=8266) FUNGUS SMEAR (BEAKER) (test No fungi seen tsiz=7886) FUNGUS CULTURE + [id number] 16:40:00 Test Item Value Reference Range Comments CULTURE (BEAKER) (test No fungus isolated in 28 days lwml=0557) FUNGUS SMEAR (BEAKER) (test No fungi seen xmjh=3303) FUNGUS CULTURE + [id number] 16:40:00 Test Item Value Reference Range Comments CULTURE (BEAKER) (test No fungus isolated in 28 days evij=9453) FUNGUS SMEAR (BEAKER) (test No fungi seen eicq=2967) POCT-GLUCOSE [id number] 11:56:00 Test Item Value Reference Range Comments POC-GLUCOSE METER (BEAKER) 247 mg/dL 70-110 TESTED AT [address] (test tqmn=6032) [facility] [address] RAD, CHEST, 1 VIEW, NON [id number] 08:39:00Reason for exam:->s/p decorticationShould this be performed [...] MDReport Verified Date/Time: 07/15/2017 08:39:08 Reading Location: [facility] [id number] Ortho Consult Reading Room Electronically signed by: MERVIN CAMPBELL M.D. on 11/2017 08:39 AMPOCT-GLUCOSE [id number] 07:09:00 Test Item Value Reference Range Comments POC-GLUCOSE METER (BEAKER) 271 mg/dL 70-110 TESTED AT [facility] [address] (test alsb=1205) [facility] [address] BASIC METABOLIC [id number] 06:41:00 Test Item Value Reference Range Comments SODIUM (BEAKER) (test 132 meq/L 136-145 uxwh=680) POTASSIUM (BEAKER) (test 4.8 meq/L 3.5-5.1 olyc=612) CHLORIDE (BEAKER) (test 94 meq/L 98-107 zmtf=028) CO2 (BEAKER) (test 28 meq/L 22-29 jxfi=932) BLOOD UREA NITROGEN 25 mg/dL 7-21 (BEAKER) (test rkyo=446) CREATININE (BEAKER) (test 3.94 mg/dL 0.57-1.25 urac=380) GLUCOSE RANDOM (BEAKER) 267 mg/dL 70-105 (test eeyt=691) CALCIUM (BEAKER) (test 9.3 mg/dL 8.4-10.2 emfs=677) EGFR (BEAKER) (test 17 mL/min/1.73 sq m ESTIMATED GFR IS NOT wnmi=1571) ACCURATE CREATININE CLEARANCE IN PREDICTING GLOMERULAR FILTRATION RATE. ESTIMATED GFR IS NOT APPLICABLE FOR DIALYSIS PATIENTS. [id number] 06:39:00 Test Item Value Reference Range Comments PHOSPHORUS (BEAKER) (test dwcb=376) 3.2 mg/dL 2.3-4.7 [id number] 06:39:00 Test Item Value Reference Range Comments MAGNESIUM (BEAKER) (test hwct=640) 2.1 mg/dL 1.6-2.6 CBC W/PLT COUNT & AUTO [id number] 06:30:00 Test Item Value Reference Range Comments WHITE BLOOD CELL COUNT (BEAKER) (test iatk=829) 14.5 K/ L 3.5-10.5 RED BLOOD CELL COUNT (BEAKER) (test fdgt=406) 3.41 M/ L 4.63-6.08 HEMOGLOBIN (BEAKER) (test avin=803) 9.2 GM/DL 13.7-17.5 HEMATOCRIT (BEAKER) (test info=785) 31.3 % 40.1-51.0 MEAN CORPUSCULAR VOLUME (BEAKER) (test uamh=900) 91.8 fL 79.0-92.2 MEAN CORPUSCULAR HEMOGLOBIN (BEAKER) (test 27.0 pg 25.7-32.2 wrwm=260) MEAN CORPUSCULAR HEMOGLOBIN CONC (BEAKER) (test 29.4 GM/DL 32.3-36.5 xtdh=849) RED CELL DISTRIBUTION WIDTH (BEAKER) (test 19.3 % 11.6-14.4 vkxu=151) PLATELET COUNT (BEAKER) (test mpqj=794) 351 K/CU MM 150-450 MEAN PLATELET VOLUME (BEAKER) (test pxoa=391) 11.4 fL 9.4-12.4 NUCLEATED RED BLOOD CELLS (BEAKER) (test 0 /100 WBC 0-0 xumb=134) NEUTROPHILS RELATIVE PERCENT (BEAKER) (test 79 % mspz=117) LYMPHOCYTES RELATIVE PERCENT (BEAKER) (test 7 % bndf=544) MONOCYTES RELATIVE PERCENT (BEAKER) (test 10 % mzkl=060) EOSINOPHILS RELATIVE PERCENT (BEAKER) (test 3 % oiap=001) BASOPHILS RELATIVE PERCENT (BEAKER) (test 1 % gucf=184) NEUTROPHILS ABSOLUTE COUNT (BEAKER) (test 11.45 K/ L 1.78-5.38 nolv=559) LYMPHOCYTES ABSOLUTE COUNT (BEAKER) (test 0.99 K/ L 1.32-3.57 mejb=335) MONOCYTES ABSOLUTE COUNT (BEAKER) (test 1.44 K/ L 0.30-0.82 fsnf=660) EOSINOPHILS ABSOLUTE COUNT (BEAKER) (test 0.41 K/ L 0.04-0.54 htrg=944) BASOPHILS ABSOLUTE COUNT (BEAKER) (test 0.09 K/ L 0.01-0.08 bvea=197) IMMATURE GRANULOCYTES-RELATIVE PERCENT (BEAKER) 1 % 0-1 (test xerp=9280) [id number] 06:27:00 Test Item Value Reference Range Comments PARTIAL THROMBOPLASTIN TIME (BEAKER) (test 40.2 seconds 22.5-36.0 extb=119) PROTHROMBIN [id number] 06:26:00 Test Item Value Reference Range Comments PROTIME (BEAKER) (test moxh=142) 15.2 seconds 11.7-14.7 INR (BEAKER) (test yfbz=802) 1.2 <=5.9 RECOMMENDED COUMADIN/WARFARIN INR THERAPY RANGESSTANDARD DOSE: 2.0 - 3.0 Includes: PROPHYLAXIS forvenous thrombosis, systemic embolization; TREATMENT for venous thrombosis and/or pulmonary embolus.HIGH RISK: Target INR is 2.5-3.5 for patients with mechanical heart valves.POCT-GLUCOSE [id number] 21:34:00 Test Item Value Reference Range Comments POC-GLUCOSE METER (BEAKER) 298 mg/dL 70-110 TESTED AT [address] (test pbsy=1168) [place] [id number] POCT-GLUCOSE [id number] 17:38:00 Test Item Value Reference Range Comments POC-GLUCOSE METER (BEAKER) 274 mg/dL 70-110 TESTED AT [address] (test jvnx=3425) [place] [id number] POCT-GLUCOSE [id number] 11:32:00 Test Item Value Reference Range Comments POC-GLUCOSE METER (BEAKER) 143 mg/dL 70-110 TESTED AT [address] (test lrem=2860) [place] [id number] CBC W/PLT COUNT & AUTO [id number] 10:24:00 Test Item Value Reference Range Comments WHITE BLOOD CELL COUNT (BEAKER) (test dhfv=926) 16.9 K/ L 3.5-10.5 RED BLOOD CELL COUNT (BEAKER) (test korq=622) 3.27 M/ L 4.63-6.08 HEMOGLOBIN (BEAKER) (test eokp=889) 8.8 GM/DL 13.7-17.5 HEMATOCRIT (BEAKER) (test cppi=725) 29.5 % 40.1-51.0 MEAN CORPUSCULAR VOLUME (BEAKER) (test rkkh=431) 90.2 fL 79.0-92.2 MEAN CORPUSCULAR HEMOGLOBIN (BEAKER) (test 26.9 pg 25.7-32.2 azgy=488) MEAN CORPUSCULAR HEMOGLOBIN CONC (BEAKER) (test 29.8 GM/DL 32.3-36.5 xmge=332) RED CELL DISTRIBUTION WIDTH (BEAKER) (test 19.5 % 11.6-14.4 aarv=619) PLATELET COUNT (BEAKER) (test tcce=249) 360 K/CU MM 150-450 MEAN PLATELET VOLUME (BEAKER) (test blbf=577) 11.6 fL 9.4-12.4 NUCLEATED RED BLOOD CELLS (BEAKER) (test 0 /100 WBC 0-0 gxjx=161) (CELLAVISION MANUAL DIFF)2017-07-14 10:24:00 Test Item Value Reference Range Comments NEUTROPHILS - REL (CELLAVISION)(BEAKER) (test 83 % qquj=3256) LYMPHOCYTES - REL (CELLAVISION)(BEAKER) (test 10 % eaqf=1714) MONOCYTES - REL (CELLAVISION)(BEAKER) (test 1 % tyve=2684) EOSINOPHILS - REL (CELLAVISION)(BEAKER) (test 6 % piuu=2865) NEUTROPHILS - ABS (CELLAVISION)(BEAKER) (test 14.03 K/ul 1.78-5.38 rpsb=3677) LYMPHOCYTES - ABS (CELLAVISION)(BEAKER) (test 1.69 K/ul 1.32-3.57 ndon=5019) MONOCYTES - ABS (CELLAVISION)(BEAKER) (test 0.17 K/uL 0.30-0.82 rtbu=7992) EOSINOPHILS - ABS (CELLAVISION)(BEAKER) (test 1.01 K/uL 0.04-0.54 vhtl=1726) TOTAL COUNTED (BEAKER) (test ldgq=9971) 100 WBC MORPHOLOGY (BEAKER) (test pfet=055) Normal PLT MORPHOLOGY (BEAKER) (test qble=717) Normal POLYCHROMATOPHILLIC RBCS(BEAKER) (test egix=856) 1+ few ANISOCYTOSIS (BEAKER) (test xeyd=419) 1+ few POIKILOCYTES (BEAKER) (test sirr=705) 1+ few ARTIFACT (CELLAVISION)(BEAKER) (test dosa=3127) Present PLATELET CONCENTRATION (CELLAVISION)(BEAKER) Adequate (test jmil=0656) Received comment: User comments: Slide comments:[id number] 10:05:00 Test Item Value Reference Range Comments PARTIAL THROMBOPLASTIN TIME (BEAKER) (test 42.3 seconds 22.5-36.0 owlt=900) PROTHROMBIN [id number] 10:04:00 Test Item Value Reference Range Comments PROTIME (BEAKER) (test spic=411) 14.9 seconds 11.7-14.7 INR (BEAKER) (test kwxz=509) 1.2 <=5.9 RECOMMENDED COUMADIN/WARFARIN INR THERAPY RANGESSTANDARD DOSE: 2.0 - 3.0 Includes: PROPHYLAXIS forvenous thrombosis, systemic embolization; TREATMENT for venous thrombosis and/or pulmonary embolus.HIGH RISK: Target INR is 2.5-3.5 for patients with mechanical heart valves.BASIC METABOLIC [id number] 10:01: 00 Test Item Value Reference Range Comments SODIUM (BEAKER) (test 134 meq/L 136-145 rkuv=759) POTASSIUM (BEAKER) (test 4.8 meq/L 3.5-5.1 enxg=925) CHLORIDE (BEAKER) (test 97 meq/L 98-107 aswk=157) CO2 (BEAKER) (test 25 meq/L 22-29 mpjd=076) BLOOD UREA NITROGEN 40 mg/dL 7-21 (BEAKER) (test vemc=545) CREATININE (BEAKER) (test 5.79 mg/dL 0.57-1.25 bqsz=046) GLUCOSE RANDOM (BEAKER) 156 mg/dL 70-105 (test qyii=311) CALCIUM (BEAKER) (test 9.0 mg/dL 8.4-10.2 lqaq=159) EGFR (BEAKER) (test 11 mL/min/1.73 sq m ESTIMATED GFR IS NOT popl=4478) ACCURATE CREATININE CLEARANCE IN PREDICTING GLOMERULAR FILTRATION RATE. ESTIMATED GFR IS NOT APPLICABLE FOR DIALYSIS PATIENTS. [id number] 09:54:00 Test Item Value Reference Range Comments PHOSPHORUS (BEAKER) (test uvwl=306) 2.7 mg/dL 2.3-4.7 [id number] 09:54:00 Test Item Value Reference Range Comments MAGNESIUM (BEAKER) (test lviy=908) 2.1 mg/dL 1.6-2.6 RAD, CHEST, 1 VIEW, NON [id number] 08:55:00Reason for exam:->s/p decorticationShould this be performed [...] MDReport Verified Date/Time: 07/14/2017 08:55:58 Reading Location: [address] Transitional Reading Room POCT-GLUCOSE [id number] 06:57:00 Test Item Value Reference Range Comments POC-GLUCOSE METER (BEAKER) 192 mg/dL 70-110 TESTED AT [address] (test fcra=0355) [facility] [address] POCT-GLUCOSE [id number] 20:47:00 Test Item Value Reference Range Comments POC-GLUCOSE METER (BEAKER) 210 mg/dL 70-110 TESTED AT [address] (test vrdt=7632) [facility] [address] POCT-GLUCOSE [id number] 17:02:00 Test Item Value Reference Range Comments POC-GLUCOSE METER (BEAKER) 174 mg/dL 70-110 TESTED AT [address] (test kmix=7172) [facility] [address] RAD, CHEST, 1 VIEW, NON [id number] 16:29:00Reason for exam:->s/p right chest tube removalReason [...] MDReport Verified Date/Time: 07/13/2017 16:29:39 Reading Location: [facility] C013 Consult Reading Room POCT-GLUCOSE [id number] 11:30:00 Test Item Value Reference Range Comments POC-GLUCOSE METER (BEAKER) 221 mg/dL 70-110 TESTED AT [address] (test pyab=2960) [facility] [address] CBC W/PLT COUNT & AUTO [id number] 10:16:00 Test Item Value Reference Range Comments WHITE BLOOD CELL COUNT (BEAKER) (test hnfl=358) 15.0 K/ L 3.5-10.5 RED BLOOD CELL COUNT (BEAKER) (test ushl=022) 3.46 M/ L 4.63-6.08 HEMOGLOBIN (BEAKER) (test ntwn=491) 9.5 GM/DL 13.7-17.5 HEMATOCRIT (BEAKER) (test zmfy=242) 31.6 % 40.1-51.0 MEAN CORPUSCULAR VOLUME (BEAKER) (test orfs=209) 91.3 fL 79.0-92.2 MEAN CORPUSCULAR HEMOGLOBIN (BEAKER) (test 27.5 pg 25.7-32.2 vbkw=300) MEAN CORPUSCULAR HEMOGLOBIN CONC (BEAKER) (test 30.1 GM/DL 32.3-36.5 baef=859) RED CELL DISTRIBUTION WIDTH (BEAKER) (test 19.9 % 11.6-14.4 vqhl=340) PLATELET COUNT (BEAKER) (test kkkg=243) 272 K/CU MM 150-450 MEAN PLATELET VOLUME (BEAKER) (test hlud=834) 11.1 fL 9.4-12.4 NUCLEATED RED BLOOD CELLS (BEAKER) (test 0 /100 WBC 0-0 ftyy=437) (CELLAVISION MANUAL DIFF)2017-07-13 10:16:00 Test Item Value Reference Range Comments NEUTROPHILS - REL (CELLAVISION)(BEAKER) (test 74 % ghgw=9572) LYMPHOCYTES - REL (CELLAVISION)(BEAKER) (test 6 % rmvu=2180) MONOCYTES - REL (CELLAVISION)(BEAKER) (test 12 % ylei=0274) EOSINOPHILS - REL (CELLAVISION)(BEAKER) (test 6 % bdkp=2825) BASOPHILS - REL (CELLAVISION)(BEAKER) (test 1 % rtsq=1326) BANDS - REL (CELLAVISION)(BEAKER) (test 1 % 0-10 bavq=7946) NEUTROPHILS - ABS (CELLAVISION)(BEAKER) (test 11.10 K/ul 1.78-5.38 ydru=4811) LYMPHOCYTES - ABS (CELLAVISION)(BEAKER) (test 0.90 K/ul 1.32-3.57 ynnr=6149) MONOCYTES - ABS (CELLAVISION)(BEAKER) (test 1.80 K/uL 0.30-0.82 cfmf=3536) EOSINOPHILS - ABS (CELLAVISION)(BEAKER) (test 0.90 K/uL 0.04-0.54 bruy=7270) BASOPHILS - ABS (CELLAVISION)(BEAKER) (test 0.15 K/uL 0.01-0.08 wwcb=7188) BANDS - ABS (CELLAVISION)(BEAKER) (test 0.15 K/uL 0.00-0.80 ykiu=8824) TOTAL COUNTED (BEAKER) (test jmqo=4689) 100 WBC MORPHOLOGY (BEAKER) (test hmvh=565) Normal LARGE PLT(BEAKER) (test pwxh=3326) Present POLYCHROMATOPHILLIC RBCS(BEAKER) (test iljy=110) 1+ few BASOPHILIC STIPPLING (BEAKER) (test etur=815) Present ARTIFACT (CELLAVISION)(BEAKER) (test nchw=0289) Present PLATELET CONCENTRATION (CELLAVISION)(BEAKER) Adequate (test jbhx=7369) Received comment: User comments: Slide comments:RAD, CHEST, 1 VIEW, NON [id number] 07:39:00Reason for exam:->s/p decorticationShould this be [...] MDReport Verified Date/Time: 07/13/2017 07:39:01 Reading Location: [facility] Radiology Reading Room Electronically signed by: ALEXIS DESAI M.D. on 2017 07:39 AMPOCT-GLUCOSE [id number] 07:09:00 Test Item Value Reference Range Comments POC-GLUCOSE METER (BEAKER) 162 mg/dL 70-110 TESTED AT [facility] [address] [place] [address] (test hfqz=6258) [facility] [address] BASIC METABOLIC [id number] 06:27:00 Test Item Value Reference Range Comments SODIUM (BEAKER) (test 134 meq/L 136-145 mosf=520) POTASSIUM (BEAKER) (test 4.3 meq/L 3.5-5.1 otzb=554) CHLORIDE (BEAKER) (test 98 meq/L 98-107 mtwj=497) CO2 (BEAKER) (test 26 meq/L 22-29 jwqm=563) BLOOD UREA NITROGEN 20 mg/dL 7-21 (BEAKER) (test remj=546) CREATININE (BEAKER) (test 3.19 mg/dL 0.57-1.25 gswy=239) GLUCOSE RANDOM (BEAKER) 189 mg/dL 70-105 (test dcwm=346) CALCIUM (BEAKER) (test 8.6 mg/dL 8.4-10.2 rzlm=415) EGFR (BEAKER) (test 22 mL/min/1.73 sq m ESTIMATED GFR IS NOT ruts=5530) ACCURATE CREATININE CLEARANCE IN PREDICTING GLOMERULAR FILTRATION RATE. ESTIMATED GFR IS NOT APPLICABLE FOR DIALYSIS PATIENTS. [id number] 05:45:00 Test Item Value Reference Range Comments PHOSPHORUS (BEAKER) (test qoiz=269) 2.4 mg/dL 2.3-4.7 [id number] 05:45:00 Test Item Value Reference Range Comments MAGNESIUM (BEAKER) (test wfgt=916) 2.2 mg/dL 1.6-2.6 [id number] 05:21:00 Test Item Value Reference Range Comments PARTIAL THROMBOPLASTIN TIME (BEAKER) (test 44.8 seconds 22.5-36.0 rdpv=278) PROTHROMBIN [id number] 05:20:00 Test Item Value Reference Range Comments PROTIME (BEAKER) (test jfnr=225) 15.6 seconds 11.7-14.7 INR (BEAKER) (test dktg=580) 1.2 <=5.9 RECOMMENDED COUMADIN/WARFARIN INR THERAPY RANGESSTANDARD DOSE: 2.0 - 3.0 Includes: PROPHYLAXIS forvenous thrombosis, systemic embolization; TREATMENT for venous thrombosis and/or pulmonary embolus.HIGH RISK: Target INR is 2.5-3.5 for patients with mechanical heart valves.POCT-GLUCOSE [id number] 21:30:00 Test Item Value Reference Range Comments POC-GLUCOSE METER (BEAKER) 366 mg/dL 70-110 Will Repeat Test/TESTED AT (test qzyv=0398) [facility] [address] [facility] [address] POCT-GLUCOSE [id number] 17:57:00 Test Item Value Reference Range Comments POC-GLUCOSE METER (BEAKER) 122 mg/dL 70-110 TESTED AT [address] (test wmnm=2244) [facility] [address] RAD, CHEST, 1 VIEW, NON [id number] 12:57:00Reason for exam:->R CT clampedShould this be [...] MDReport Verified Date/Time: 07/12/2017 12:57:51 Reading Location: [facility] Radiology Reading Room POCT-GLUCOSE [id number] 11:39:00 Test Item Value Reference Range Comments POC-GLUCOSE METER (BEAKER) 81 mg/dL 70-110 TESTED AT [address] (test vbxg=0478) [facility] [address] RAD, CHEST, 1 VIEW, NON [id number] 08:57:00Reason for exam:->s/p decorticationShould this be performed [...] MDReport Verified Date/Time: 07/12/2017 08:57:27 Reading Location: [facility] Radiology Reading Room Electronically signed by: ALEXIS DESAI M.D. on07/12/2017 08:57 AMPOCT-GLUCOSE [id number] 07:03:00 Test Item Value Reference Range Comments POC-GLUCOSE METER (BEAKER) 165 mg/dL 70-110 TESTED AT [address] (test cbro=7920) [facility] [address] BASIC METABOLIC [id number] 05:10:00 Test Item Value Reference Range Comments SODIUM (BEAKER) (test 134 meq/L 136-145 pcqn=305) POTASSIUM (BEAKER) (test 4.2 meq/L 3.5-5.1 ahsr=777) CHLORIDE (BEAKER) (test 99 meq/L 98-107 phax=235) CO2 (BEAKER) (test 25 meq/L 22-29 nzga=416) BLOOD UREA NITROGEN 29 mg/dL 7-21 (BEAKER) (test cvsk=862) CREATININE (BEAKER) (test 4.75 mg/dL 0.57-1.25 bmbb=001) GLUCOSE RANDOM (BEAKER) 79 mg/dL 70-105 (test pgav=192) CALCIUM (BEAKER) (test 9.3 mg/dL 8.4-10.2 gwzr=793) EGFR (BEAKER) (test 14 mL/min/1.73 sq m ESTIMATED GFR IS NOT ihgx=1353) ACCURATE CREATININE CLEARANCE IN PREDICTING GLOMERULAR FILTRATION RATE. ESTIMATED GFR IS NOT APPLICABLE FOR DIALYSIS PATIENTS. PROTHROMBIN [id number] 05:02:00 Test Item Value Reference Range Comments PROTIME (BEAKER) (test zxfn=228) 15.7 seconds 11.7-14.7 INR (BEAKER) (test scnt=501) 1.3 <=5.9 RECOMMENDED COUMADIN/WARFARIN INR THERAPY RANGESSTANDARD DOSE: 2.0 - 3.0 Includes: PROPHYLAXIS forvenous thrombosis, systemic embolization; TREATMENT for venous thrombosis and/or pulmonary embolus.HIGH RISK: Target INR is 2.5-3.5 for patients with mechanical heart valves.[id number] 05:02:00 Test Item Value Reference Range Comments PARTIAL THROMBOPLASTIN TIME (BEAKER) (test 45.4 seconds 22.5-36.0 ptgy=242) [id number] 04:50:00 Test Item Value Reference Range Comments PHOSPHORUS (BEAKER) (test dvlk=745) 2.1 mg/dL 2.3-4.7 [id number] 04:50:00 Test Item Value Reference Range Comments MAGNESIUM (BEAKER) (test dfys=818) 2.2 mg/dL 1.6-2.6 CBC W/PLT COUNT & AUTO [id number] 04:47:00 Test Item Value Reference Range Comments WHITE BLOOD CELL COUNT (BEAKER) (test gbsy=069) 15.4 K/ L 3.5-10.5 RED BLOOD CELL COUNT (BEAKER) (test qzlq=738) 3.74 M/ L 4.63-6.08 HEMOGLOBIN (BEAKER) (test rtlg=229) 10.0 GM/DL 13.7-17.5 HEMATOCRIT (BEAKER) (test jovh=250) 34.1 % 40.1-51.0 MEAN CORPUSCULAR VOLUME (BEAKER) (test iktn=078) 91.2 fL 79.0-92.2 MEAN CORPUSCULAR HEMOGLOBIN (BEAKER) (test 26.7 pg 25.7-32.2 edlb=540) MEAN CORPUSCULAR HEMOGLOBIN CONC (BEAKER) (test 29.3 GM/DL 32.3-36.5 kxvj=857) RED CELL DISTRIBUTION WIDTH (BEAKER) (test 19.3 % 11.6-14.4 hghj=134) PLATELET COUNT (BEAKER) (test khns=258) 278 K/CU MM 150-450 MEAN PLATELET VOLUME (BEAKER) (test lphn=185) 11.4 fL 9.4-12.4 NUCLEATED RED BLOOD CELLS (BEAKER) (test 0 /100 WBC 0-0 qsqa=728) NEUTROPHILS RELATIVE PERCENT (BEAKER) (test 74 % jndj=947) LYMPHOCYTES RELATIVE PERCENT (BEAKER) (test 8 % ubii=453) MONOCYTES RELATIVE PERCENT (BEAKER) (test 11 % hlfp=886) EOSINOPHILS RELATIVE PERCENT (BEAKER) (test 5 % xjgb=177) BASOPHILS RELATIVE PERCENT (BEAKER) (test 0 % ayms=815) NEUTROPHILS ABSOLUTE COUNT (BEAKER) (test 11.48 K/ L 1.78-5.38 xnac=860) LYMPHOCYTES ABSOLUTE COUNT (BEAKER) (test 1.22 K/ L 1.32-3.57 cyxo=222) MONOCYTES ABSOLUTE COUNT (BEAKER) (test 1.68 K/ L 0.30-0.82 wsqx=792) EOSINOPHILS ABSOLUTE COUNT (BEAKER) (test 0.73 K/ L 0.04-0.54 xmfe=002) BASOPHILS ABSOLUTE COUNT (BEAKER) (test 0.06 K/ L 0.01-0.08 hkat=588) IMMATURE GRANULOCYTES-RELATIVE PERCENT (BEAKER) 2 % 0-1 (test ukbd=3322) POCT-GLUCOSE [id number] 21:09:00 Test Item Value Reference Range Comments POC-GLUCOSE METER (BEAKER) 162 mg/dL 70-110 TESTED AT [address] (test bhib=2074) [facility] [address] POCT-GLUCOSE [id number] 16:53:00 Test Item Value Reference Range Comments POC-GLUCOSE METER (BEAKER) 222 mg/dL 70-110 TESTED AT [address] (test jsan=5294) [facility] [address] POCT-GLUCOSE [id number] 15:26:00 Test Item Value Reference Range Comments POC-GLUCOSE METER (BEAKER) 141 mg/dL 70-110 TESTED AT [address] (test ohqb=9506) [facility] [address] POCT-GLUCOSE [id number] 15:04:00 Test Item Value Reference Range Comments POC-GLUCOSE METER (BEAKER) 49 mg/dL 70-110 Notified PERLA BARROW/TESTED AT [facility] (test dptt=7316) [address] [place] [address] RAD, CHEST, 1 VIEW, NON [id number] 13:07:00Reason for exam:->CT removalShould this be performed [...] improved. Cardiomediastinal contours are stable. Signed: Williams Ramirezepvictoria Verified Date/Time: 07/11/2017 13:07:52 Reading Location: [facility] Reading Room POCT-GLUCOSE [id number] 11:48:00 Test Item Value Reference Range Comments POC-GLUCOSE METER (BEAKER) 166 mg/dL 70-110 TESTED AT [facility] [address] [facility] (test tzij=3871) [facility] [address] RAD, CHEST, 1 VIEW, NON [id number] 08:04:00Reason for exam:->s/p decorticationShould this be performed [...] MDReport Verified Date/Time: 07/11/2017 08:04:08 Reading Location: [facility] Radiology Reading Room Electronically signed by: ALEXIS DESAI M.D. on 2017 08:04 AMPOCT-GLUCOSE [id number] 07:31:00 Test Item Value Reference Range Comments POC-GLUCOSE METER (BEAKER) 144 mg/dL 70-110 TESTED AT [address] (test sghs=7530) [place] [address] [id number] 06:13:00 Test Item Value Reference Range Comments PHOSPHORUS (BEAKER) (test zbgv=868) 1.7 mg/dL 2.3-4.7 [id number] 06:13:00 Test Item Value Reference Range Comments MAGNESIUM (BEAKER) (test quow=760) 2.2 mg/dL 1.6-2.6 BASIC METABOLIC [id number] 06:13:00 Test Item Value Reference Range Comments SODIUM (BEAKER) (test 138 meq/L 136-145 iein=891) POTASSIUM (BEAKER) (test 3.5 meq/L 3.5-5.1 xwxn=972) CHLORIDE (BEAKER) (test 100 meq/L 98-107 itsu=920) CO2 (BEAKER) (test 28 meq/L 22-29 ahah=575) BLOOD UREA NITROGEN 15 mg/dL 7-21 (BEAKER) (test yyjl=110) CREATININE (BEAKER) (test 2.76 mg/dL 0.57-1.25 ngsl=731) GLUCOSE RANDOM (BEAKER) 42 mg/dL 70-105 (test kmke=818) CALCIUM (BEAKER) (test 9.4 mg/dL 8.4-10.2 vamm=038) EGFR (BEAKER) (test 26 mL/min/1.73 sq m ESTIMATED GFR IS NOT qqzs=2250) ACCURATE CREATININE CLEARANCE IN PREDICTING GLOMERULAR FILTRATION RATE. ESTIMATED GFR IS NOT APPLICABLE FOR DIALYSIS PATIENTS. POCT-GLUCOSE [id number] 06:02:00 Test Item Value Reference Range Comments POC-GLUCOSE METER (BEAKER) 94 mg/dL 70-110 TESTED AT [facility] [address] [facility] (test nazf=0891) [facility] [address] [id number] 06:01:00 Test Item Value Reference Range Comments PARTIAL THROMBOPLASTIN TIME (BEAKER) (test 33.5 seconds 22.5-36.0 tvnk=444) PROTHROMBIN [id number] 06:00:00 Test Item Value Reference Range Comments PROTIME (BEAKER) (test ibxp=782) 15.9 seconds 11.7-14.7 INR (BEAKER) (test lllz=757) 1.3 <=5.9 RECOMMENDED COUMADIN/WARFARIN INR THERAPY RANGESSTANDARD DOSE: 2.0 - 3.0 Includes: PROPHYLAXIS forvenous thrombosis, systemic embolization; TREATMENT for venous thrombosis and/or pulmonary embolus.HIGH RISK: Target INR is 2.5-3.5 for patients with mechanical heart valves.CBC W/PLT COUNT & AUTO [id number] 05:55:00 Test Item Value Reference Range Comments WHITE BLOOD CELL COUNT (BEAKER) (test cdum=132) 14.7 K/ L 3.5-10.5 RED BLOOD CELL COUNT (BEAKER) (test hqmf=909) 3.90 M/ L 4.63-6.08 HEMOGLOBIN (BEAKER) (test avml=920) 10.3 GM/DL 13.7-17.5 HEMATOCRIT (BEAKER) (test xsld=772) 33.9 % 40.1-51.0 MEAN CORPUSCULAR VOLUME (BEAKER) (test zfhl=087) 86.9 fL 79.0-92.2 MEAN CORPUSCULAR HEMOGLOBIN (BEAKER) (test 26.4 pg 25.7-32.2 tnbd=619) MEAN CORPUSCULAR HEMOGLOBIN CONC (BEAKER) (test 30.4 GM/DL 32.3-36.5 tiyj=396) RED CELL DISTRIBUTION WIDTH (BEAKER) (test 18.6 % 11.6-14.4 tuic=167) PLATELET COUNT (BEAKER) (test qmup=459) 238 K/CU MM 150-450 MEAN PLATELET VOLUME (BEAKER) (test ppni=630) 10.4 fL 9.4-12.4 NUCLEATED RED BLOOD CELLS (BEAKER) (test 0 /100 WBC 0-0 vbci=201) NEUTROPHILS RELATIVE PERCENT (BEAKER) (test 72 % epwy=403) LYMPHOCYTES RELATIVE PERCENT (BEAKER) (test 6 % btpv=876) MONOCYTES RELATIVE PERCENT (BEAKER) (test 14 % kqob=964) EOSINOPHILS RELATIVE PERCENT (BEAKER) (test 5 % ijtf=445) BASOPHILS RELATIVE PERCENT (BEAKER) (test 1 % ttui=992) NEUTROPHILS ABSOLUTE COUNT (BEAKER) (test 10.56 K/ L 1.78-5.38 eruj=177) LYMPHOCYTES ABSOLUTE COUNT (BEAKER) (test 0.94 K/ L 1.32-3.57 gyyc=781) MONOCYTES ABSOLUTE COUNT (BEAKER) (test 2.03 K/ L 0.30-0.82 zoql=236) EOSINOPHILS ABSOLUTE COUNT (BEAKER) (test 0.76 K/ L 0.04-0.54 ymsd=313) BASOPHILS ABSOLUTE COUNT (BEAKER) (test 0.07 K/ L 0.01-0.08 glah=009) IMMATURE GRANULOCYTES-RELATIVE PERCENT (BEAKER) 2 % 0-1 (test khiq=8513) POCT-GLUCOSE [id number] 05:36:00 Test Item Value Reference Range Comments POC-GLUCOSE METER (BEAKER) 37 mg/dL 70-110 TESTED AT [facility] [address] (test kzym=5990) [facility] [address] POCT-GLUCOSE [id number] 22:37:00 Test Item Value Reference Range Comments POC-GLUCOSE METER (BEAKER) 136 mg/dL 70-110 TESTED AT [address] (test qhpo=3489) [place] [id number] BLOOD [id number] 18:00:00 Test Item Value Reference Range Comments CULTURE (BEAKER) (test qbnu=6002) No growth in 5 days POCT-GLUCOSE [id number] 17:39:00 Test Item Value Reference Range Comments POC-GLUCOSE METER (BEAKER) 184 mg/dL 70-110 TESTED AT [address] (test qlaa=3508) [place] [address] RAD, CHEST, 1 VIEW, NON [id number] 13:48:00Reason for exam:->s/p L ct removalShould this [...] Verified Date/Time: 07/10/2017 13 :48:20 Reading Location: [facility] Radiology Reading Room POCT-GLUCOSE [id number] 13 :19:00 Test Item Value Reference Range Comments POC-GLUCOSE METER (BEAKER) 193 mg/dL 70-110 TESTED AT [address] (test hcty=1577) [place] [id number] POCT-GLUCOSE [id number] 08:50:00 Test Item Value Reference Range Comments POC-GLUCOSE METER (BEAKER) 136 mg/dL 70-110 TESTED AT [address] (test gtvp=8026) [place] [id number] PROTHROMBIN [id number] 04:55:00 Test Item Value Reference Range Comments PROTIME (BEAKER) (test buqy=999) 14.7 seconds 11.7-14.7 INR (BEAKER) (test bkcu=447) 1.2 <=5.9 RECOMMENDED COUMADIN/WARFARIN INR THERAPY RANGESSTANDARD DOSE: 2.0 - 3.0 Includes: PROPHYLAXIS forvenous thrombosis, systemic embolization; TREATMENT for venous thrombosis and/or pulmonary embolus.HIGH RISK: Target INR is 2.5-3.5 for patients with mechanical heart valves.[id number] 04:55:00 Test Item Value Reference Range Comments PARTIAL THROMBOPLASTIN TIME (BEAKER) (test 36.2 seconds 22.5-36.0 ykrp=062) RAD, CHEST, 1 VIEW, NON [id number] 04:43:00Reason for exam:->s/p decorticationShould this be performed at the bedside?->YesFINAL REPORT Comparison exam: 07/09/2017 Medium-sized right pneumothorax, new when compared to the prior exam. This finding was called to the patient's nurse Lilia on 07/10/2017at 4:40 AM. She will contact the patient's physician. Stable cardiomediastinal contours. Appropriate position of the support hardware. Signed: Jamar Ley MDReport Verified Date/Time : 07/10/2017 04:43:24 Reading Location: [address] Reading Room BASIC METABOLIC [id number] 04:42:00 Test Item Value Reference Range Comments SODIUM (BEAKER) (test 128 meq/L 136-145 tfxy=527) POTASSIUM (BEAKER) (test 4.9 meq/L 3.5-5.1 cpcc=757) CHLORIDE (BEAKER) (test 95 meq/L 98-107 ojiu=564) CO2 (BEAKER) (test 18 meq/L 22-29 ffll=569) BLOOD UREA NITROGEN 57 mg/dL 7-21 (BEAKER) (test rdwr=790) CREATININE (BEAKER) (test 6.01 mg/dL 0.57-1.25 dzba=070) GLUCOSE RANDOM (BEAKER) 172 mg/dL 70-105 (test ijil=729) CALCIUM (BEAKER) (test 9.4 mg/dL 8.4-10.2 viph=119) EGFR (BEAKER) (test 10 mL/min/1.73 sq m ESTIMATED GFR IS NOT txxt=4961) ACCURATE CREATININE CLEARANCE IN PREDICTING GLOMERULAR FILTRATION RATE. ESTIMATED GFR IS NOT APPLICABLE FOR DIALYSIS PATIENTS. Check Serum Phosphorus level 4 hours after IV phosphorus replacement or 8 hours after PO replacementcompleted.[id number] 04:40:00 Test Item Value Reference Range Comments PHOSPHORUS (BEAKER) (test rrep=567) 3.9 mg/dL 2.3-4.7 Check Serum Phosphorus level 4 hours after IV phosphorus replacement or 8 hours after PO replacementcompleted.[id number] 04:40:00 Test Item Value Reference Range Comments MAGNESIUM (BEAKER) (test avvl=553) 2.6 mg/dL 1.6-2.6 Check Serum Phosphorus level 4 hours after IV phosphorus replacement or 8 hours after PO replacementcompleted.CBC W/PLT COUNT & AUTO [id number] 04:31:00 Test Item Value Reference Range Comments WHITE BLOOD CELL COUNT (BEAKER) (test odsa=519) 16.7 K/ L 3.5-10.5 RED BLOOD CELL COUNT (BEAKER) (test nkbt=240) 3.62 M/ L 4.63-6.08 HEMOGLOBIN (BEAKER) (test atiq=842) 9.9 GM/DL 13.7-17.5 HEMATOCRIT (BEAKER) (test vlnw=442) 33.2 % 40.1-51.0 MEAN CORPUSCULAR VOLUME (BEAKER) (test gobi=872) 91.7 fL 79.0-92.2 MEAN CORPUSCULAR HEMOGLOBIN (BEAKER) (test 27.3 pg 25.7-32.2 mnvj=326) MEAN CORPUSCULAR HEMOGLOBIN CONC (BEAKER) (test 29.8 GM/DL 32.3-36.5 mqql=154) RED CELL DISTRIBUTION WIDTH (BEAKER) (test 17.6 % 11.6-14.4 qrpa=796) PLATELET COUNT (BEAKER) (test lkpr=017) 230 K/CU MM 150-450 MEAN PLATELET VOLUME (BEAKER) (test wsar=647) 10.8 fL 9.4-12.4 NUCLEATED RED BLOOD CELLS (BEAKER) (test 0 /100 WBC 0-0 algb=859) NEUTROPHILS RELATIVE PERCENT (BEAKER) (test 70 % dnbd=030) LYMPHOCYTES RELATIVE PERCENT (BEAKER) (test 10 % rzwy=123) MONOCYTES RELATIVE PERCENT (BEAKER) (test 12 % edfg=112) EOSINOPHILS RELATIVE PERCENT (BEAKER) (test 5 % dalb=580) BASOPHILS RELATIVE PERCENT (BEAKER) (test 0 % frxt=657) NEUTROPHILS ABSOLUTE COUNT (BEAKER) (test 11.68 K/ L 1.78-5.38 qkxq=464) LYMPHOCYTES ABSOLUTE COUNT (BEAKER) (test 1.68 K/ L 1.32-3.57 xcvd=666) MONOCYTES ABSOLUTE COUNT (BEAKER) (test 1.97 K/ L 0.30-0.82 vguv=655) EOSINOPHILS ABSOLUTE COUNT (BEAKER) (test 0.75 K/ L 0.04-0.54 mlhi=190) BASOPHILS ABSOLUTE COUNT (BEAKER) (test 0.07 K/ L 0.01-0.08 hpag=072) IMMATURE GRANULOCYTES-RELATIVE PERCENT (BEAKER) 4 % 0-1 (test ptjx=7990) POCT-GLUCOSE [id number] 23:54:00 Test Item Value Reference Range Comments POC-GLUCOSE METER (BEAKER) 446 mg/dL 70-110 TESTED AT [address] (test jcib=5027) [place] [id number] POCT-GLUCOSE [id number] 21:41:00 Test Item Value Reference Range Comments POC-GLUCOSE METER (BEAKER) 320 mg/dL 70-110 TESTED AT [address] (test bcdi=9623) [place] [id number] POCT-GLUCOSE [id number] 18:09:00 Test Item Value Reference Range Comments POC-GLUCOSE METER (BEAKER) 320 mg/dL 70-110 Notified PERLA BARROW/TESTED AT [facility] (test yjfg=0045) [address] [place], [place] [id number] RAD, CHEST, 1 VIEW, NON [id number] 14:03:00Reason for exam:->CT removalShould this be performed [...] MDReport Verified Date/Time: 07/09/2017 14:03:19 Reading Location: [facility] Radiology Reading Room Electronically signed by: ALEXIS DESAI M.D. on 2017 02:03 PMCBC W/PLT COUNT & AUTO [id number] 11:17:00 Test Item Value Reference Range Comments WHITE BLOOD CELL COUNT (BEAKER) (test qxyc=645) 15.2 K/ L 3.5-10.5 RED BLOOD CELL COUNT (BEAKER) (test ckyr=566) 3.31 M/ L 4.63-6.08 HEMOGLOBIN (BEAKER) (test seoy=985) 8.9 GM/DL 13.7-17.5 HEMATOCRIT (BEAKER) (test sxlu=176) 29.2 % 40.1-51.0 MEAN CORPUSCULAR VOLUME (BEAKER) (test omnz=625) 88.2 fL 79.0-92.2 MEAN CORPUSCULAR HEMOGLOBIN (BEAKER) (test 26.9 pg 25.7-32.2 jlwk=574) MEAN CORPUSCULAR HEMOGLOBIN CONC (BEAKER) (test 30.5 GM/DL 32.3-36.5 yrlt=675) RED CELL DISTRIBUTION WIDTH (BEAKER) (test 17.0 % 11.6-14.4 mcer=507) PLATELET COUNT (BEAKER) (test hqbu=579) 234 K/CU MM 150-450 MEAN PLATELET VOLUME (BEAKER) (test pfmw=966) 11.0 fL 9.4-12.4 NUCLEATED RED BLOOD CELLS (BEAKER) (test 0 /100 WBC 0-0 sohn=302) RAD, CHEST, 1 VIEW, NON [id number] 07:40:00Reason for exam:->s/p decorticationShould this be performed [...] MDReport Verified Date/Time: 07/09/2017 07:40:46 Reading Location: [facility] Radiology Reading Room BLOOD GAS, [id number] 06:35:00 Test Item Value Reference Range Comments PH ARTERIAL (BEAKER) (test lvhx=917) 7.36 7.35-7.45 PCO2 ARTERIAL (BEAKER) (test eizl=032) 46 mmHg 35-45 PO2 ARTERIAL (BEAKER) (test spxo=737) 156 mmHg 80-90 O2 SATURATION ARTERIAL (BEAKER) (test kzvv=065) 98.9 % 96.0-97.0 HCO3 ARTERIAL (BEAKER) (test okkr=687) 25 mmol/L 21-29 BASE EXCESS ARTERIAL (BEAKER) (test qsdv=195) -0.8 mmol/L -2.0-3.0 PATIENT TEMPERATURE (BEAKER) (test ldmu=2304) 37.0 C FIO2 (BEAKER) (test fxun=1255) 24.0 % [id number] 05:56:00 Test Item Value Reference Range Comments PREALBUMIN (BEAKER) (test aeib=502) 12 mg/dL 14-45 PROTHROMBIN TIME/[id number] 05:41:00 Test Item Value Reference Range Comments PROTIME (BEAKER) (test lfow=114) 15.3 seconds 11.7-14.7 INR (BEAKER) (test fvaa=847) 1.2 <=5.9 RECOMMENDED COUMADIN/WARFARIN INR THERAPY RANGESSTANDARD DOSE: 2.0 - 3.0 Includes: PROPHYLAXIS forvenous thrombosis, systemic embolization; TREATMENT for venous thrombosis and/or pulmonary embolus.HIGH RISK: Target INR is 2.5-3.5 for patients with mechanical heart valves.[id number] 05:41:00 Test Item Value Reference Range Comments PARTIAL THROMBOPLASTIN TIME (BEAKER) (test 47.6 seconds 22.5-36.0 zvwt=421) BASIC METABOLIC [id number] 05:37:00 Test Item Value Reference Range Comments SODIUM (BEAKER) (test 129 meq/L 136-145 juoy=547) POTASSIUM (BEAKER) (test 4.7 meq/L 3.5-5.1 oycn=917) CHLORIDE (BEAKER) (test 95 meq/L 98-107 pzog=542) CO2 (BEAKER) (test 22 meq/L 22-29 cddx=682) BLOOD UREA NITROGEN 41 mg/dL 7-21 (BEAKER) (test oleq=602) CREATININE (BEAKER) (test 4.66 mg/dL 0.57-1.25 yuay=444) GLUCOSE RANDOM (BEAKER) 305 mg/dL 70-105 (test tvpw=710) CALCIUM (BEAKER) (test 9.1 mg/dL 8.4-10.2 hgrl=306) EGFR (BEAKER) (test 14 mL/min/1.73 sq m ESTIMATED GFR IS NOT wcbc=4155) ACCURATE CREATININE CLEARANCE IN PREDICTING GLOMERULAR FILTRATION RATE. ESTIMATED GFR IS NOT APPLICABLE FOR DIALYSIS PATIENTS. PROTEIN, [id number] 05:36:00 Test Item Value Reference Range Comments TOTAL PROTEIN (BEAKER) (test jtrv=205) 5.9 gm/dL 6.0-8.3 [id number] 05:36:00 Test Item Value Reference Range Comments MAGNESIUM (BEAKER) (test haad=849) 2.5 mg/dL 1.6-2.6 [id number] 05:36:00 Test Item Value Reference Range Comments PHOSPHORUS (BEAKER) (test fppk=724) 3.6 mg/dL 2.3-4.7 [id number] 05:36:00 Test Item Value Reference Range Comments ALBUMIN (BEAKER) (test vlfj=2339) 2.6 g/dL 3.5-5.0 POCT-GLUCOSE [id number] 21:11:00 Test Item Value Reference Range Comments POC-GLUCOSE METER (BEAKER) 411 mg/dL 70-110 Notified PERLA BARROW/TESTED AT [facility] (test kwdy=2746) [address] [place] [address] POCT-GLUCOSE [id number] 17:23:00 Test Item Value Reference Range Comments POC-GLUCOSE METER (BEAKER) 277 mg/dL 70-110 TESTED AT [address] (test djow=7700) [facility] [address] [id number] 15:36:00 Test Item Value Reference Range Comments MAGNESIUM (BEAKER) (test vtok=104) 2.6 mg/dL 1.6-2.6 CBC W/PLT COUNT & AUTO [id number] 12:20:00 Test Item Value Reference Range Comments WHITE BLOOD CELL COUNT (BEAKER) (test zvjb=428) 13.6 K/ L 3.5-10.5 RED BLOOD CELL COUNT (BEAKER) (test gyet=155) 3.38 M/ L 4.63-6.08 HEMOGLOBIN (BEAKER) (test kxmi=043) 9.0 GM/DL 13.7-17.5 HEMATOCRIT (BEAKER) (test sszm=207) 29.9 % 40.1-51.0 MEAN CORPUSCULAR VOLUME (BEAKER) (test hmul=393) 88.5 fL 79.0-92.2 MEAN CORPUSCULAR HEMOGLOBIN (BEAKER) (test 26.6 pg 25.7-32.2 ppuv=276) MEAN CORPUSCULAR HEMOGLOBIN CONC (BEAKER) (test 30.1 GM/DL 32.3-36.5 cqna=157) RED CELL DISTRIBUTION WIDTH (BEAKER) (test 16.8 % 11.6-14.4 ulvc=622) PLATELET COUNT (BEAKER) (test krcx=658) 213 K/CU MM 150-450 MEAN PLATELET VOLUME (BEAKER) (test fzzp=295) 10.7 fL 9.4-12.4 NUCLEATED RED BLOOD CELLS (BEAKER) (test 0 /100 WBC 0-0 ljdh=346) POCT-GLUCOSE [id number] 11:48:00 Test Item Value Reference Range Comments POC-GLUCOSE METER (BEAKER) 255 mg/dL 70-110 TESTED AT [address] (test vwpv=7225) [facility] [address] POCT-GLUCOSE [id number] 08:25:00 Test Item Value Reference Range Comments POC-GLUCOSE METER (BEAKER) 307 mg/dL 70-110 Notified PERLA BARROW/TESTED AT [facility] (test pplk=4239) [address] [place] [address] BLOOD GAS, [id number] 05:27:00 Test Item Value Reference Range Comments PH ARTERIAL (BEAKER) (test vzsu=442) 7.39 7.35-7.45 PCO2 ARTERIAL (BEAKER) (test gsyg=459) 48 mmHg 35-45 PO2 ARTERIAL (BEAKER) (test umlk=984) 122 mmHg 80-90 O2 SATURATION ARTERIAL (BEAKER) (test lhtu=565) 98.4 % 96.0-97.0 HCO3 ARTERIAL (BEAKER) (test lpwm=636) 28 mmol/L 21-29 BASE EXCESS ARTERIAL (BEAKER) (test nvsk=083) 2.4 mmol/L -2.0-3.0 PATIENT TEMPERATURE (BEAKER) (test bnvb=9090) 36.5 C FIO2 (BEAKER) (test arsi=8246) 21.0 % [id number] 05:20:00 Test Item Value Reference Range Comments PHOSPHORUS (BEAKER) (test dfrh=901) 1.3 mg/dL 2.3-4.7 BASIC METABOLIC [id number] 05:18:00 Test Item Value Reference Range Comments SODIUM (BEAKER) (test 133 meq/L 136-145 ywze=083) POTASSIUM (BEAKER) (test 4.5 meq/L 3.5-5.1 svcq=497) CHLORIDE (BEAKER) (test 97 meq/L 98-107 nurc=027) CO2 (BEAKER) (test 25 meq/L 22-29 remv=214) BLOOD UREA NITROGEN 20 mg/dL 7-21 (BEAKER) (test myss=603) CREATININE (BEAKER) (test 2.87 mg/dL 0.57-1.25 viai=761) GLUCOSE RANDOM (BEAKER) 302 mg/dL 70-105 (test vasy=313) CALCIUM (BEAKER) (test 9.0 mg/dL 8.4-10.2 mtqc=334) EGFR (BEAKER) (test 24 mL/min/1.73 sq m ESTIMATED GFR IS NOT mtud=0077) ACCURATE CREATININE CLEARANCE IN PREDICTING GLOMERULAR FILTRATION RATE. ESTIMATED GFR IS NOT APPLICABLE FOR DIALYSIS PATIENTS. [id number] 05:17:00 Test Item Value Reference Range Comments MAGNESIUM (BEAKER) (test tpga=187) 1.9 mg/dL 1.6-2.6 RAD, CHEST, 1 VIEW, NON [id number] 05:01:00Reason for exam:->s/p decorticationShould this be performed at the bedside?->YesFINAL REPORT Comparison exam: 07/07/2017 Small bilateral pneumothoraces. Smallstable left pleural effusion. Stable cardiomediastinal contours. Appropriate position of the support hardware. Signed: Jamar Ley Verified Date/Time: 07/08/2017 05:01:59 Reading Location: [address] Reading Room [id number] 04:53:00 Test Item Value Reference Range Comments PARTIAL THROMBOPLASTIN TIME (BEAKER) (test 50.4 seconds 22.5-36.0 duzz=505) PROTHROMBIN [id number] 04:52:00 Test Item Value Reference Range Comments PROTIME (BEAKER) (test egag=337) 15.8 seconds 11.7-14.7 INR (BEAKER) (test lgcw=571) 1.3 <=5.9 RECOMMENDED COUMADIN/WARFARIN INR THERAPY RANGESSTANDARD DOSE: 2.0 - 3.0 Includes: PROPHYLAXIS forvenous thrombosis, systemic embolization; TREATMENT for venous thrombosis and/or pulmonary embolus.HIGH RISK: Target INR is 2.5-3.5 for patients with mechanical heart valves.ANAEROBIC [id number] 01:38:00 Test Item Value Reference Range Comments CULTURE (BEAKER) (test pdrw=3535) No anaerobes isolated ANAEROBIC [id number] 01:38:00 Test Item Value Reference Range Comments CULTURE (BEAKER) (test vexs=6576) No anaerobes isolated ANAEROBIC [id number] 01:38:00 Test Item Value Reference Range Comments CULTURE (BEAKER) (test qvoz=7973) No anaerobes isolated POCT-GLUCOSE [id number] 21:36:00 Test Item Value Reference Range Comments POC-GLUCOSE METER (BEAKER) 265 mg/dL 70-110 TESTED AT [address] (test ifzh=8848) [facility] [address] POCT-GLUCOSE [id number] 16:24:00 Test Item Value Reference Range Comments POC-GLUCOSE METER (BEAKER) 119 mg/dL 70-110 TESTED AT [address] (test xzkz=0788) [facility] [address] CBC W/PLT COUNT & AUTO [id number] 15:44:00 Test Item Value Reference Range Comments WHITE BLOOD CELL COUNT (BEAKER) (test tpjz=637) 11.8 K/ L 3.5-10.5 RED BLOOD CELL COUNT (BEAKER) (test ihvv=512) 3.20 M/ L 4.63-6.08 HEMOGLOBIN (BEAKER) (test ovpi=094) 8.6 GM/DL 13.7-17.5 HEMATOCRIT (BEAKER) (test gwoh=545) 29.3 % 40.1-51.0 MEAN CORPUSCULAR VOLUME (BEAKER) (test jmwd=657) 91.6 fL 79.0-92.2 MEAN CORPUSCULAR HEMOGLOBIN (BEAKER) (test 26.9 pg 25.7-32.2 mgua=697) MEAN CORPUSCULAR HEMOGLOBIN CONC (BEAKER) (test 29.4 GM/DL 32.3-36.5 ffbz=361) RED CELL DISTRIBUTION WIDTH (BEAKER) (test 17.0 % 11.6-14.4 omwi=342) PLATELET COUNT (BEAKER) (test xbiv=875) 257 K/CU MM 150-450 MEAN PLATELET VOLUME (BEAKER) (test peaq=197) 10.8 fL 9.4-12.4 NUCLEATED RED BLOOD CELLS (BEAKER) (test 0 /100 WBC 0-0 flup=704) POCT-GLUCOSE [id number] 12:13:00 Test Item Value Reference Range Comments POC-GLUCOSE METER (BEAKER) 195 mg/dL 70-110 TESTED AT [address] (test ccpl=6987) [facility] [address] POCT-GLUCOSE [id number] 09:31:00 Test Item Value Reference Range Comments POC-GLUCOSE METER (BEAKER) 76 mg/dL 70-110 TESTED AT [address] (test foxo=9551) [facility] [address] POCT-GLUCOSE [id number] 09:12:00 Test Item Value Reference Range Comments POC-GLUCOSE METER (BEAKER) 60 mg/dL 70-110 Will Repeat Test/TESTED AT (test mpfe=4024) [facility] [address] [facility] [address] BLOOD GAS, [id number] 06:33:00 Test Item Value Reference Range Comments PH ARTERIAL (BEAKER) (test czye=073) 7.38 7.35-7.45 PCO2 ARTERIAL (BEAKER) (test horu=739) 47 mmHg 35-45 PO2 ARTERIAL (BEAKER) (test ykgd=653) 171 mmHg 80-90 O2 SATURATION ARTERIAL (BEAKER) (test jfas=841) 99.1 % 96.0-97.0 HCO3 ARTERIAL (BEAKER) (test hzzb=264) 28 mmol/L 21-29 BASE EXCESS ARTERIAL (BEAKER) (test elly=487) 2.1 mmol/L -2.0-3.0 PATIENT TEMPERATURE (BEAKER) (test yqhn=9650) 37.0 C FIO2 (BEAKER) (test amdt=4968) 28.0 % [id number] 06:10:00 Test Item Value Reference Range Comments PARTIAL THROMBOPLASTIN TIME (BEAKER) (test 47.3 seconds 22.5-36.0 etke=883) PROTHROMBIN [id number] 06:09:00 Test Item Value Reference Range Comments PROTIME (BEAKER) (test jstr=171) 14.6 seconds 11.7-14.7 INR (BEAKER) (test pwjy=846) 1.1 <=5.9 RECOMMENDED COUMADIN/WARFARIN INR THERAPY RANGESSTANDARD DOSE: 2.0 - 3.0 Includes: PROPHYLAXIS forvenous thrombosis, systemic embolization; TREATMENT for venous thrombosis and/or pulmonary embolus.HIGH RISK: Target INR is 2.5-3.5 for patients with mechanical heart valves.BASIC METABOLIC [id number] 05:54: 00 Test Item Value Reference Range Comments SODIUM (BEAKER) (test 139 meq/L 136-145 ycwd=053) POTASSIUM (BEAKER) (test 3.9 meq/L 3.5-5.1 yxnw=629) CHLORIDE (BEAKER) (test 103 meq/L 98-107 vetd=614) CO2 (BEAKER) (test 26 meq/L 22-29 hcxo=863) BLOOD UREA NITROGEN 39 mg/dL 7-21 (BEAKER) (test lwvs=466) CREATININE (BEAKER) (test 4.62 mg/dL 0.57-1.25 tvgn=770) GLUCOSE RANDOM (BEAKER) 86 mg/dL 70-105 (test kjmf=758) CALCIUM (BEAKER) (test 9.1 mg/dL 8.4-10.2 npye=514) EGFR (BEAKER) (test 14 mL/min/1.73 sq m ESTIMATED GFR IS NOT jono=9232) ACCURATE CREATININE CLEARANCE IN PREDICTING GLOMERULAR FILTRATION RATE. ESTIMATED GFR IS NOT APPLICABLE FOR DIALYSIS PATIENTS. [id number] 05:52:00 Test Item Value Reference Range Comments PHOSPHORUS (BEAKER) (test vbrs=704) 2.0 mg/dL 2.3-4.7 [id number] 05:52:00 Test Item Value Reference Range Comments MAGNESIUM (BEAKER) (test cyuk=422) 2.3 mg/dL 1.6-2.6 RAD, CHEST, 1 VIEW, NON [id number] 04:34:00Reason for exam:->s/p decorticationShould this be performed at the bedside?->YesFINAL REPORT Comparison exam: 07/06/2017 Interval improvement in the right pneumothorax. Small bilateral pneumothoraces remain. Left lower lobe atelectasis/consolidation, unchanged. Stable cardiomediastinal contours. Appropriate position of the support hardware. Signed: Jamar Ley MDReport Verified Date/Time: 07/07/2017 04:34:32 Reading Location: [address] Reading Room POCT-GLUCOSE [id number] 00:10:00 Test Item Value Reference Range Comments POC-GLUCOSE METER (BEAKER) 202 mg/dL 70-110 TESTED AT [facility] [address] [facility] (test xkkc=8818) [facility] [address] POCT-GLUCOSE [id number] 18:01:00 Test Item Value Reference Range Comments POC-GLUCOSE METER (BEAKER) 364 mg/dL 70-110 TESTED AT [address] (test uczo=4364) [place] [address] RAD, CHEST, 1 VIEW, NON [id number] 14:24:00Reason for exam:->R CT to water sealShould [...] are stable and partially obscured. Signed: Williams Ramirezeport Verified Date/Time: 07/06/2017 14:24:47 Reading Location: [facility] POCT-GLUCOSE [id number] 12:18 :00 Test Item Value Reference Range Comments POC-GLUCOSE METER (BEAKER) 254 mg/dL 70-110 TESTED AT [address] (test htkz=2544) [place] [id number] CBC W/PLT COUNT & AUTO [id number] 11:25:00 Test Item Value Reference Range Comments WHITE BLOOD CELL COUNT (BEAKER) (test yskh=373) 13.3 K/ L 3.5-10.5 RED BLOOD CELL COUNT (BEAKER) (test mahv=280) 3.07 M/ L 4.63-6.08 HEMOGLOBIN (BEAKER) (test oxku=770) 8.2 GM/DL 13.7-17.5 HEMATOCRIT (BEAKER) (test fpno=001) 27.2 % 40.1-51.0 MEAN CORPUSCULAR VOLUME (BEAKER) (test yvbd=178) 88.6 fL 79.0-92.2 MEAN CORPUSCULAR HEMOGLOBIN (BEAKER) (test 26.7 pg 25.7-32.2 lzqo=880) MEAN CORPUSCULAR HEMOGLOBIN CONC (BEAKER) (test 30.1 GM/DL 32.3-36.5 olcw=050) RED CELL DISTRIBUTION WIDTH (BEAKER) (test 16.9 % 11.6-14.4 vikp=313) PLATELET COUNT (BEAKER) (test upwp=338) 235 K/CU MM 150-450 MEAN PLATELET VOLUME (BEAKER) (test dfqq=188) 10.5 fL 9.4-12.4 NUCLEATED RED BLOOD CELLS (BEAKER) (test 0 /100 WBC 0-0 eanu=321) RAD, CHEST, 1 VIEW, NON [id number] 07:44:00Reason for exam:->s/p decorticationShould this be performed at the bedside?->YesFINAL REPORT Chest one view compared to July 05 Discussion: Small upper chest pneumothoraces are grossly similar. Bilateral chest tubes in place. Left effusion and ill-defined left lung airspace opacities are noted. Mild pulmonary congestion. IMPRESSIONS: No change Signed: Cata Montano Verified Date/Time: 07/06/2017 07:44:08 Reading Location: [facility] Radiology Reading Room Electronically signed by: CATA MONTANO M.D. on 02/2017 07:44 AMPOCT-GLUCOSE [id number] 06:46:00 Test Item Value Reference Range Comments POC-GLUCOSE METER (BEAKER) 123 mg/dL 70-110 TESTED AT [facility] [address] [facility] (test keel=7136) [facility] [address] BASIC METABOLIC [id number] 05:13:00 Test Item Value Reference Range Comments SODIUM (BEAKER) (test 140 meq/L 136-145 htdb=510) POTASSIUM (BEAKER) (test 4.0 meq/L 3.5-5.1 npko=964) CHLORIDE (BEAKER) (test 104 meq/L 98-107 npmc=952) CO2 (BEAKER) (test 27 meq/L 22-29 lrwt=353) BLOOD UREA NITROGEN 16 mg/dL 7-21 (BEAKER) (test yply=370) CREATININE (BEAKER) (test 2.62 mg/dL 0.57-1.25 avgi=810) GLUCOSE RANDOM (BEAKER) 115 mg/dL 70-105 (test ipns=730) CALCIUM (BEAKER) (test 9.6 mg/dL 8.4-10.2 lveb=488) EGFR (BEAKER) (test 27 mL/min/1.73 sq m ESTIMATED GFR IS NOT igsc=0578) ACCURATE CREATININE CLEARANCE IN PREDICTING GLOMERULAR FILTRATION RATE. ESTIMATED GFR IS NOT APPLICABLE FOR DIALYSIS PATIENTS. [id number] 05:08:00 Test Item Value Reference Range Comments PHOSPHORUS (BEAKER) (test iqta=277) 1.7 mg/dL 2.3-4.7 [id number] 05:08:00 Test Item Value Reference Range Comments MAGNESIUM (BEAKER) (test kaad=674) 2.1 mg/dL 1.6-2.6 BLOOD GAS, [id number] 05:04:00 Test Item Value Reference Range Comments PH ARTERIAL (BEAKER) (test mswx=683) 7.53 7.35-7.45 PCO2 ARTERIAL (BEAKER) (test viir=371) 35 mmHg 35-45 PO2 ARTERIAL (BEAKER) (test fsfv=669) 203 mmHg 80-90 O2 SATURATION ARTERIAL (BEAKER) (test ybtx=784) 99.5 % 96.0-97.0 HCO3 ARTERIAL (BEAKER) (test vdvi=675) 29 mmol/L 21-29 BASE EXCESS ARTERIAL (BEAKER) (test jyqt=478) 5.6 mmol/L -2.0-3.0 PATIENT TEMPERATURE (BEAKER) (test lvfi=8401) 37.0 C FIO2 (BEAKER) (test avlq=9498) 30.0 % [id number] 04:42:00 Test Item Value Reference Range Comments PARTIAL THROMBOPLASTIN TIME (BEAKER) (test 45.3 seconds 22.5-36.0 aizf=196) PROTHROMBIN TIME/[id number] 04:41:00 Test Item Value Reference Range Comments PROTIME (BEAKER) (test namd=649) 14.6 seconds 11.7-14.7 INR (BEAKER) (test vgeg=978) 1.1 <=5.9 RECOMMENDED COUMADIN/WARFARIN INR THERAPY RANGESSTANDARD DOSE: 2.0 - 3.0 Includes: PROPHYLAXIS forvenous thrombosis, systemic embolization; TREATMENT for venous thrombosis and/or pulmonary embolus.HIGH RISK: Target INR is 2.5-3.5 for patients with mechanical heart valves.POCT-GLUCOSE [id number] 00:15:00 Test Item Value Reference Range Comments POC-GLUCOSE METER (BEAKER) 122 mg/dL 70-110 TESTED AT [facility] [address] [facility] (test ukdr=5016) [facility] [address] URINALYSIS W/ REFLEX URINE [id number] 23:02:00 Test Item Value Reference Range Comments COLOR (BEAKER) (test kxst=691) Yellow CLARITY (BEAKER) (test etza=635) Hazy SPECIFIC GRAVITY UA (BEAKER) (test czqg=952) 1.016 1.001-1.035 PH UA (BEAKER) (test ewxe=887) 6.5 5.0-8.0 PROTEIN UA (BEAKER) (test eiyg=197) 600 mg/dL Negative GLUCOSE UA (BEAKER) (test mgks=282) 500 mg/dL Negative KETONES UA (BEAKER) (test bbch=251) Negative Negative BILIRUBIN UA (BEAKER) (test bsfl=227) Negative Negative BLOOD UA (BEAKER) (test ihdt=031) Negative Negative NITRITE UA (BEAKER) (test duzw=458) Negative Negative LEUKOCYTE ESTERASE UA (BEAKER) (test dnot=868) Negative Negative UROBILINOGEN UA (BEAKER) (test snbn=106) 0.2 mg/dL 0.2-1.0 RBC UA (BEAKER) (test dvdh=687) 4 /HPF WBC UA (BEAKER) (test ywko=181) 2 /HPF BACTERIA (BEAKER) (test afib=660) Occasional SOURCE(BEAKER) (test azkd=7285) RAD, CHEST, 1 VIEW, NON [id number] 20:06:00Reason for exam:-> hypoxiaShould this be performed at the bedside?->YesFINAL REPORT Comparison exam: 07/05/2017 time 6:14 AM Small bilateral pneumothoraces, improved on the left when compared to the prior exam. Stable cardiomediastinal contours. Appropriate position of the support hardware. Signed: Jamar Ley Verified Date/Time:07/05/2017 20:06:44 Reading Location: [address] Reading Room TISSUE [id number] 19:06: 00Surgical Pathology Report Case: [id number] Authorizing Provider: Guillermo Snow MD Collected : 06/30/2017 1118 Ordering Location: [address] Received: 07/03/2017 0751 Service Pathologist: Frantz Ruiz MD Specimens: A) - Lung, Left Lower Lobe, Left lower lobe peel B) -Lung, Left Upper Lobe, Left upper lobe peel A. LUNG, LEFT LOWER LOBE, PLEURAL DECORTICATION: - ORGANIZING PLEURITIS - NEGATIVE FOR MALIGNANCYB. LUNG, LEFT LOWER LOBE, PLEURAL DECORTICATION: - ORGANIZING PLEURITIS - NEGATIVE FOR MALIGNANCY Signing Pathologist Direct Phone Line: [phone] signed by Frantz Ruiz MD on 07/05/2017 at 7:06 [id number] pleural effusionA. Left lower lobe peel; B. [...] entirely B1 to B3. CG/pl Performed.BLOOD GAS, [id number] 17:59:00 Test Item Value Reference Range Comments PH ARTERIAL (BEAKER) (test nsmx=852) 7.37 7.35-7.45 PCO2 ARTERIAL (BEAKER) (test lnpa=689) 47 mmHg 35-45 PO2 ARTERIAL (BEAKER) (test qikb=498) 60 mmHg 80-90 O2 SATURATION ARTERIAL (BEAKER) (test zowl=487) 91.7 % 96.0-97.0 HCO3 ARTERIAL (BEAKER) (test kmiy=317) 27 mmol/L 21-29 BASE EXCESS ARTERIAL (BEAKER) (test vxrp=977) 1.2 mmol/L -2.0-3.0 PATIENT TEMPERATURE (BEAKER) (test scrb=8538) 35.8 C FIO2 (BEAKER) (test hemx=7843) 30.0 % POCT-GLUCOSE [id number] 17:50:00 Test Item Value Reference Range Comments POC-GLUCOSE METER (BEAKER) 198 mg/dL 70-110 TESTED AT [place] [id number] [facility] (test hqft=0885) [facility] [address] POCT-GLUCOSE [id number] 13:56:00 Test Item Value Reference Range Comments POC-GLUCOSE METER (BEAKER) 204 mg/dL 70-110 TESTED AT [place] [id number] [facility] (test cqhn=4338) [facility] [address] ANAEROBIC [id number] 11:01:00 Test Item Value Reference Range Comments CULTURE (BEAKER) (test kuvo=2228) No anaerobes isolated ANAEROBIC [id number] 11:01:00 Test Item Value Reference Range Comments CULTURE (BEAKER) (test gjnw=0953) No anaerobes isolated ANAEROBIC [id number] 11:01:00 Test Item Value Reference Range Comments CULTURE (BEAKER) (test jctc=6695) No anaerobes isolated ANAEROBIC [id number] 11:00:00 Test Item Value Reference Range Comments CULTURE (BEAKER) (test alca=9263) No anaerobes isolated RAD, CHEST, 1 VIEW, NON [id number] 09:47:00Reason for exam:->s/p decorticationShould this be performed [...] Montano Verified Date/Time: 07/05/2017 09:47:43 Reading Location: [facility] Radiology Reading Room POCT-GLUCOSE [id number] 09:41:00 Test Item Value Reference Range Comments POC-GLUCOSE METER (BEAKER) 338 mg/dL 70-110 Notified PERLA BARROW/TESTED AT [facility] (test uyrx=5377) [address] [place] [address] CBC W/PLT COUNT & AUTO [id number] 06:31:00 Test Item Value Reference Range Comments WHITE BLOOD CELL COUNT (BEAKER) (test pfml=027) 17.6 K/ L 3.5-10.5 RED BLOOD CELL COUNT (BEAKER) (test wcvy=823) 3.16 M/ L 4.63-6.08 HEMOGLOBIN (BEAKER) (test pyml=980) 8.4 GM/DL 13.7-17.5 HEMATOCRIT (BEAKER) (test pmti=758) 28.7 % 40.1-51.0 MEAN CORPUSCULAR VOLUME (BEAKER) (test scvg=303) 90.8 fL 79.0-92.2 MEAN CORPUSCULAR HEMOGLOBIN (BEAKER) (test 26.6 pg 25.7-32.2 hmac=446) MEAN CORPUSCULAR HEMOGLOBIN CONC (BEAKER) (test 29.3 GM/DL 32.3-36.5 alvm=958) RED CELL DISTRIBUTION WIDTH (BEAKER) (test 17.2 % 11.6-14.4 uyfu=468) PLATELET COUNT (BEAKER) (test dbas=895) 272 K/CU MM 150-450 MEAN PLATELET VOLUME (BEAKER) (test zlhr=635) 11.4 fL 9.4-12.4 NUCLEATED RED BLOOD CELLS (BEAKER) (test 0 /100 WBC 0-0 pnko=947) NEUTROPHILS RELATIVE PERCENT (BEAKER) (test 84 % ptwd=305) LYMPHOCYTES RELATIVE PERCENT (BEAKER) (test 4 % bdzs=263) MONOCYTES RELATIVE PERCENT (BEAKER) (test 9 % piiq=794) EOSINOPHILS RELATIVE PERCENT (BEAKER) (test 2 % fgfw=715) BASOPHILS RELATIVE PERCENT (BEAKER) (test 0 % glyb=270) NEUTROPHILS ABSOLUTE COUNT (BEAKER) (test 14.81 K/ L 1.78-5.38 pmoc=738) LYMPHOCYTES ABSOLUTE COUNT (BEAKER) (test 0.62 K/ L 1.32-3.57 ufvn=317) MONOCYTES ABSOLUTE COUNT (BEAKER) (test 1.57 K/ L 0.30-0.82 vfhx=126) EOSINOPHILS ABSOLUTE COUNT (BEAKER) (test 0.31 K/ L 0.04-0.54 qvls=453) BASOPHILS ABSOLUTE COUNT (BEAKER) (test 0.07 K/ L 0.01-0.08 hmbi=555) IMMATURE GRANULOCYTES-RELATIVE PERCENT (BEAKER) 1 % 0-1 (test fekh=0241) [id number] 06:04:00 Test Item Value Reference Range Comments PROTIME (BEAKER) (test lmgf=659) 15.6 seconds 11.7-14.7 INR (BEAKER) (test ibyg=142) 1.2 <=5.9 PARTIAL THROMBOPLASTIN TIME (BEAKER) (test 55.5 seconds 22.5-36.0 isjs=317) RECOMMENDED COUMADIN/WARFARIN INR THERAPY RANGESSTANDARD DOSE: 2.0 - 3.0 Includes: PROPHYLAXIS forvenous thrombosis, systemic embolization; TREATMENT for venous thrombosis and/or pulmonary embolus.HIGH RISK: Target INR is 2.5-3.5 for patients with mechanical heart valves.BASIC METABOLIC [id number] 05:44: 00 Test Item Value Reference Range Comments SODIUM (BEAKER) (test 140 meq/L 136-145 ltma=296) POTASSIUM (BEAKER) (test 4.6 meq/L 3.5-5.1 atsh=347) CHLORIDE (BEAKER) (test 101 meq/L 98-107 idjm=940) CO2 (BEAKER) (test 24 meq/L 22-29 ihhn=453) BLOOD UREA NITROGEN 46 mg/dL 7-21 (BEAKER) (test ydhp=398) CREATININE (BEAKER) (test 6.35 mg/dL 0.57-1.25 pbdb=674) GLUCOSE RANDOM (BEAKER) 251 mg/dL 70-105 (test qmkh=516) CALCIUM (BEAKER) (test 8.2 mg/dL 8.4-10.2 asur=576) EGFR (BEAKER) (test 10 mL/min/1.73 sq m ESTIMATED GFR IS NOT qvzq=0082) ACCURATE CREATININE CLEARANCE IN PREDICTING GLOMERULAR FILTRATION RATE. ESTIMATED GFR IS NOT APPLICABLE FOR DIALYSIS PATIENTS. [id number] 05:22:00 Test Item Value Reference Range Comments PARTIAL THROMBOPLASTIN TIME (BEAKER) (test > seconds 22.5-36.0 qfuj=511) [id number] 05:12:00 Test Item Value Reference Range Comments PHOSPHORUS (BEAKER) (test ioce=942) 6.1 mg/dL 2.3-4.7 [id number] 05:12:00 Test Item Value Reference Range Comments MAGNESIUM (BEAKER) (test klot=633) 2.3 mg/dL 1.6-2.6 PROTHROMBIN [id number] 05:00:00 Test Item Value Reference Range Comments PROTIME (BEAKER) (test vqoy=570) 17.6 seconds 11.7-14.7 INR (BEAKER) (test ekbh=071) 1.5 <=5.9 RECOMMENDED COUMADIN/WARFARIN INR THERAPY RANGESSTANDARD DOSE: 2.0 - 3.0 Includes: PROPHYLAXIS forvenous thrombosis, systemic embolization; TREATMENT for venous thrombosis and/or pulmonary embolus.HIGH RISK: Target INR is 2.5-3.5 for patients with mechanical heart valves.BLOOD GAS, [id number] 04:49:00 Test Item Value Reference Range Comments PH ARTERIAL (BEAKER) (test gabu=289) 7.33 7.35-7.45 PCO2 ARTERIAL (BEAKER) (test nzjm=934) 51 mmHg 35-45 PO2 ARTERIAL (BEAKER) (test kpcm=213) 158 mmHg 80-90 O2 SATURATION ARTERIAL (BEAKER) (test djje=256) 98.9 % 96.0-97.0 HCO3 ARTERIAL (BEAKER) (test xmnt=891) 26 mmol/L 21-29 BASE EXCESS ARTERIAL (BEAKER) (test rqus=163) -0.1 mmol/L -2.0-3.0 PATIENT TEMPERATURE (BEAKER) (test papm=1555) 37.0 C FIO2 (BEAKER) (test kcth=9640) 28.0 % POCT-GLUCOSE [id number] 21:51:00 Test Item Value Reference Range Comments POC-GLUCOSE METER (BEAKER) 292 mg/dL 70-110 TESTED AT [address] (test rxgy=1326) [facility] [address] POCT-GLUCOSE [id number] 18:49:00 Test Item Value Reference Range Comments POC-GLUCOSE METER (BEAKER) 248 mg/dL 70-110 TESTED AT [address] (test dzkb=4310) [place] [address] RAD, CHEST, 1 VIEW, NON [id number] 14:39:00Reason for exam:->eval pneumo , suction to [...] Cata Montano Verified Date/Time:07/04/2017 14:39:09 Reading Location: [facility] [id number] Consult Reading Room POCT-GLUCOSE [id number] 13:28:00 Test Item Value Reference Range Comments POC-GLUCOSE METER (BEAKER) 278 mg/dL 70-110 TESTED AT [address] (test yitz=4819) [place] [address] BLOOD GAS, [id number] 09:41:00 Test Item Value Reference Range Comments PH ARTERIAL (BEAKER) (test ewoc=139) 7.30 7.35-7.45 PCO2 ARTERIAL (BEAKER) (test gphf=656) 56 mmHg 35-45 PO2 ARTERIAL (BEAKER) (test scqa=853) 110 mmHg 80-90 O2 SATURATION ARTERIAL (BEAKER) (test litv=572) 97.4 % 96.0-97.0 HCO3 ARTERIAL (BEAKER) (test vrsd=066) 27 mmol/L 21-29 BASE EXCESS ARTERIAL (BEAKER) (test yylh=767) -0.3 mmol/L -2.0-3.0 PATIENT TEMPERATURE (BEAKER) (test yzil=1213) 37.0 C FIO2 (BEAKER) (test jprp=4550) 28.0 % POCT-GLUCOSE [id number] 09:16:00 Test Item Value Reference Range Comments POC-GLUCOSE METER (BEAKER) 161 mg/dL 70-110 TESTED AT [address] (test kggn=9510) [place] [id number] RAD, CHEST, 1 VIEW, NON [id number] 09:13:00Reason for exam:->s/p decorticationShould this be performed [...] Verified Date/Time : 07/04/2017 09:13:48 Reading Location: [facility] Radiology Reading Room BLOOD GAS, [id number] 04:33:00 Test Item Value Reference Range Comments PH ARTERIAL (BEAKER) (test gqoy=649) 7.30 7.35-7.45 PCO2 ARTERIAL (BEAKER) (test cwha=705) 57 mmHg 35-45 PO2 ARTERIAL (BEAKER) (test ftxh=086) 97 mmHg 80-90 O2 SATURATION ARTERIAL (BEAKER) (test fchi=654) 96.6 % 96.0-97.0 HCO3 ARTERIAL (BEAKER) (test fbzd=723) 27 mmol/L 21-29 BASE EXCESS ARTERIAL (BEAKER) (test yobi=990) 0.3 mmol/L -2.0-3.0 PATIENT TEMPERATURE (BEAKER) (test dhpi=3677) 37.0 C FIO2 (BEAKER) (test jnwx=1095) 28.0 % BASIC METABOLIC [id number] 04:18:00 Test Item Value Reference Range Comments SODIUM (BEAKER) (test 142 meq/L 136-145 kway=821) POTASSIUM (BEAKER) (test 4.9 meq/L 3.5-5.1 xwwo=264) CHLORIDE (BEAKER) (test 101 meq/L 98-107 rtkv=221) CO2 (BEAKER) (test 25 meq/L 22-29 uxug=240) BLOOD UREA NITROGEN 24 mg/dL 7-21 (BEAKER) (test bjex=406) CREATININE (BEAKER) (test 4.57 mg/dL 0.57-1.25 krkn=060) GLUCOSE RANDOM (BEAKER) 152 mg/dL 70-105 (test tvmj=560) CALCIUM (BEAKER) (test 8.9 mg/dL 8.4-10.2 mbro=781) EGFR (BEAKER) (test 14 mL/min/1.73 sq m ESTIMATED GFR IS NOT lics=2678) ACCURATE CREATININE CLEARANCE IN PREDICTING GLOMERULAR FILTRATION RATE. ESTIMATED GFR IS NOT APPLICABLE FOR DIALYSIS PATIENTS. [id number] 04:15:00 Test Item Value Reference Range Comments PHOSPHORUS (BEAKER) (test uynx=997) 6.5 mg/dL 2.3-4.7 [id number] 04:15:00 Test Item Value Reference Range Comments MAGNESIUM (BEAKER) (test kugg=282) 2.2 mg/dL 1.6-2.6 CBC W/PLT COUNT & AUTO [id number] 04:10:00 Test Item Value Reference Range Comments WHITE BLOOD CELL COUNT (BEAKER) (test bden=701) 18.0 K/ L 3.5-10.5 RED BLOOD CELL COUNT (BEAKER) (test jddf=773) 3.44 M/ L 4.63-6.08 HEMOGLOBIN (BEAKER) (test uswt=687) 9.2 GM/DL 13.7-17.5 HEMATOCRIT (BEAKER) (test mpbf=989) 31.5 % 40.1-51.0 MEAN CORPUSCULAR VOLUME (BEAKER) (test xbhr=592) 91.6 fL 79.0-92.2 MEAN CORPUSCULAR HEMOGLOBIN (BEAKER) (test 26.7 pg 25.7-32.2 wyfr=210) MEAN CORPUSCULAR HEMOGLOBIN CONC (BEAKER) (test 29.2 GM/DL 32.3-36.5 tnhr=719) RED CELL DISTRIBUTION WIDTH (BEAKER) (test 17.5 % 11.6-14.4 xjep=453) PLATELET COUNT (BEAKER) (test rnpl=007) 261 K/CU MM 150-450 MEAN PLATELET VOLUME (BEAKER) (test yglc=442) 11.8 fL 9.4-12.4 NUCLEATED RED BLOOD CELLS (BEAKER) (test 0 /100 WBC 0-0 xper=672) NEUTROPHILS RELATIVE PERCENT (BEAKER) (test 88 % latl=533) LYMPHOCYTES RELATIVE PERCENT (BEAKER) (test 4 % kawq=297) MONOCYTES RELATIVE PERCENT (BEAKER) (test 8 % gnpd=924) EOSINOPHILS RELATIVE PERCENT (BEAKER) (test 0 % kazx=608) BASOPHILS RELATIVE PERCENT (BEAKER) (test 0 % cfos=762) NEUTROPHILS ABSOLUTE COUNT (BEAKER) (test 15.84 K/ L 1.78-5.38 hbzd=437) LYMPHOCYTES ABSOLUTE COUNT (BEAKER) (test 0.63 K/ L 1.32-3.57 fksr=745) MONOCYTES ABSOLUTE COUNT (BEAKER) (test 1.36 K/ L 0.30-0.82 fdhf=728) EOSINOPHILS ABSOLUTE COUNT (BEAKER) (test 0.05 K/ L 0.04-0.54 gmjj=747) BASOPHILS ABSOLUTE COUNT (BEAKER) (test 0.05 K/ L 0.01-0.08 nknp=176) IMMATURE GRANULOCYTES-RELATIVE PERCENT (BEAKER) 1 % 0-1 (test hrqp=3353) [id number] 04:10:00 Test Item Value Reference Range Comments PARTIAL THROMBOPLASTIN TIME (BEAKER) (test 54.7 seconds 22.5-36.0 dhoe=290) PROTHROMBIN [id number] 04:08:00 Test Item Value Reference Range Comments PROTIME (BEAKER) (test kjxz=465) 17.5 seconds 11.7-14.7 INR (BEAKER) (test ptsm=112) 1.4 <=5.9 RECOMMENDED COUMADIN/WARFARIN INR THERAPY RANGESSTANDARD DOSE: 2.0 - 3.0 Includes: PROPHYLAXIS forvenous thrombosis, systemic embolization; TREATMENT for venous thrombosis and/or pulmonary embolus.HIGH RISK: Target INR is 2.5-3.5 for patients with mechanical heart valves.POCT-GLUCOSE [id number] 22:23:00 Test Item Value Reference Range Comments POC-GLUCOSE METER (BEAKER) 125 mg/dL 70-110 TESTED AT [address] (test ufof=0181) [place] [id number] POCT-GLUCOSE [id number] 18:19:00 Test Item Value Reference Range Comments POC-GLUCOSE METER (BEAKER) 95 mg/dL 70-110 TESTED AT [address] (test fsdk=4982) [facility] [address] RAD, CHEST, 1 VIEW, NON [id number] 17:14:00Reason for exam:->CT to water seal, extubationShould [...] Ramirez Verified Date/Time: 07/03/2017 17:14:23 Reading Location: [facility] Radiology Reading Room Electronically signed by: LIZ RAMIREZ on 2017 05:14 PMBLOOD GAS, [id number] 14:24:00 Test Item Value Reference Range Comments PH ARTERIAL (BEAKER) (test rkpe=488) 7.39 7.35-7.45 PCO2 ARTERIAL (BEAKER) (test qprz=614) 49 mmHg 35-45 PO2 ARTERIAL (BEAKER) (test mkcg=866) 191 mmHg 80-90 O2 SATURATION ARTERIAL (BEAKER) (test xmjj=758) 99.3 % 96.0-97.0 HCO3 ARTERIAL (BEAKER) (test ubda=041) 29 mmol/L 21-29 BASE EXCESS ARTERIAL (BEAKER) (test tvqp=669) 3.6 mmol/L -2.0-3.0 PATIENT TEMPERATURE (BEAKER) (test hzue=8261) 36.8 C FIO2 (BEAKER) (test guhc=1250) 40.0 % ANAEROBIC [id number] 14:03:00 Test Item Value Reference Range Comments CULTURE (BEAKER) (test qkcp=5123) No anaerobes isolated SURGICALLY OBTAINED CULTURE + GRAM [id number] 13:40:00 Test Item Value Reference Range Comments CULTURE (BEAKER) (test COAGULASE NEGATIVE 1+ Coagulase negative jqkf=7145) STAPHYLOCOCCUS Staphylococcus Clindamycin (test code=10) Erythromycin (test code=4) Linezolid (test code=40) Nitrofurantoin (test code=23) Oxacillin (test code=14) Rifampin (test code=43) Tetracycline (test code=2) Trimethoprim + Sulfamethoxazole (test code=47) Vancomycin (test code=13) GRAM STAIN RESULT <1+ WBCs (BEAKER) (test lsfr=9703) GRAM STAIN RESULT No organisms seen (BEAKER) (test rpka=474384) POCT-GLUCOSE [id number] 13:22:00 Test Item Value Reference Range Comments POC-GLUCOSE METER (BEAKER) 103 mg/dL 70-110 TESTED AT [address] (test glwu=1683) [facility] [address] POCT-GLUCOSE [id number] 12:44:00 Test Item Value Reference Range Comments POC-GLUCOSE METER (BEAKER) 66 mg/dL 70-110 Notified PERLA BARROW/TESTED AT [facility] (test mqfq=0675) [address] [place] [address] BRONCHIAL CULTURE + GRAM [id number] 11:47:00 Test Item Value Reference Range Comments CULTURE (BEAKER) (test 1+ Normal respiratory morelia slhn=1238) present GRAM STAIN RESULT (BEAKER) 1+ WBCs (test ltda=3233) GRAM STAIN RESULT (BEAKER) No organisms seen (test fmbo=79400) RAD, CHEST, 1 VIEW, NON [id number] 11:17:00Reason for exam:->s/p decorticationShould this be performed at the bedside?->YesFINAL REPORT Chest one view compared to July 02 Discussion: Bilateral chest tubes in place. There persistent small pneumothoraces left more than right at the apices, unchanged. Ill-defined interstitial opacities left lung are stable. Support tubes in place. IMPRESSIONS: No significant change Signed: Cata Montano Verified Date/Time: 07/03/2017 11:17:09 Reading Location: [facility] Radiology Reading Room POCT-GLUCOSE [id number] 08:54:00 Test Item Value Reference Range Comments POC-GLUCOSE METER (BEAKER) 194 mg/dL 70-110 TESTED AT [address] (test ykxr=7371) [facility] [address] SURGICALLY OBTAINED CULTURE + GRAM [id number] 08:42:00 Test Item Value Reference Range Comments CULTURE (BEAKER) (test ilhe=6070) No growth GRAM STAIN RESULT (BEAKER) (test <1+ WBCs jvmo=6276) GRAM STAIN RESULT (BEAKER) (test No organisms seen ouuu=84183) SURGICALLY OBTAINED CULTURE + GRAM [id number] 08:41:00 Test Item Value Reference Range Comments CULTURE (BEAKER) (test rdue=6141) No growth GRAM STAIN RESULT (BEAKER) (test <1+ WBCs dvfr=1146) GRAM STAIN RESULT (BEAKER) (test No organisms seen awnx=50005) SURGICALLY OBTAINED CULTURE + GRAM [id number] 08:41:00 Test Item Value Reference Range Comments CULTURE (BEAKER) (test afjp=1436) No growth GRAM STAIN RESULT (BEAKER) (test <1+ WBCs kcek=0659) GRAM STAIN RESULT (BEAKER) (test No organisms seen task=42854) SURGICALLY OBTAINED CULTURE + GRAM [id number] 08:40:00 Test Item Value Reference Range Comments CULTURE (BEAKER) (test ucum=4683) No growth GRAM STAIN RESULT (BEAKER) (test <1+ WBCs qxnt=7913) GRAM STAIN RESULT (BEAKER) (test No organisms seen nltk=63830) SURGICALLY OBTAINED CULTURE + GRAM [id number] 08:40:00 Test Item Value Reference Range Comments CULTURE (BEAKER) (test vejn=9862) No growth GRAM STAIN RESULT (BEAKER) (test <1+ WBCs zype=8725) GRAM STAIN RESULT (BEAKER) (test No organisms seen mnxg=17075) SURGICALLY OBTAINED CULTURE + GRAM [id number] 08:40:00 Test Item Value Reference Range Comments CULTURE (BEAKER) (test lwrz=4933) No growth GRAM STAIN RESULT (BEAKER) (test <1+ WBCs vwkd=1970) GRAM STAIN RESULT (BEAKER) (test No organisms seen tqxy=50800) SURGICALLY OBTAINED CULTURE + GRAM [id number] 08:39:00 Test Item Value Reference Range Comments CULTURE (BEAKER) (test qlea=4927) No growth GRAM STAIN RESULT (BEAKER) (test <1+ WBCs ozep=4119) GRAM STAIN RESULT (BEAKER) (test No organisms seen voyc=33608) VANCOMYCIN LEVEL, [id number] 04:12:00 Test Item Value Reference Range Comments VANCOMYCIN RANDOM (BEAKER) (test ctof=178) 12.7 ug/mL Reference Range: No NormalsBLOOD GAS, [id number] 04:10:00 Test Item Value Reference Range Comments PH ARTERIAL (BEAKER) (test thsn=717) 7.36 7.35-7.45 PCO2 ARTERIAL (BEAKER) (test gjks=133) 42 mmHg 35-45 PO2 ARTERIAL (BEAKER) (test szvy=232) 199 mmHg 80-90 O2 SATURATION ARTERIAL (BEAKER) (test axaa=395) 99.3 % 96.0-97.0 HCO3 ARTERIAL (BEAKER) (test cisu=057) 23 mmol/L 21-29 BASE EXCESS ARTERIAL (BEAKER) (test pmnd=924) -2.5 mmol/L -2.0-3.0 PATIENT TEMPERATURE (BEAKER) (test mhiv=6974) 37.0 C FIO2 (BEAKER) (test pcjf=6390) 40.0 % BASIC METABOLIC [id number] 04:05:00 Test Item Value Reference Range Comments SODIUM (BEAKER) (test 142 meq/L 136-145 npqf=557) POTASSIUM (BEAKER) (test 4.4 meq/L 3.5-5.1 mcyr=142) CHLORIDE (BEAKER) (test 101 meq/L 98-107 roci=381) CO2 (BEAKER) (test 19 meq/L 22-29 zwdo=333) BLOOD UREA NITROGEN 43 mg/dL 7-21 (BEAKER) (test lgst=371) CREATININE (BEAKER) (test 7.14 mg/dL 0.57-1.25 lhze=051) GLUCOSE RANDOM (BEAKER) 146 mg/dL 70-105 (test hkom=806) CALCIUM (BEAKER) (test 9.2 mg/dL 8.4-10.2 gtdx=038) EGFR (BEAKER) (test 9 mL/min/1.73 sq m ESTIMATED GFR IS NOT ldae=5246) ACCURATE CREATININE CLEARANCE IN PREDICTING GLOMERULAR FILTRATION RATE. ESTIMATED GFR IS NOT APPLICABLE FOR DIALYSIS PATIENTS. [id number] 03:51:00 Test Item Value Reference Range Comments PHOSPHORUS (BEAKER) (test jizk=254) 7.4 mg/dL 2.3-4.7 [id number] 03:51:00 Test Item Value Reference Range Comments MAGNESIUM (BEAKER) (test dezf=856) 2.5 mg/dL 1.6-2.6 [id number] 03:46:00 Test Item Value Reference Range Comments PARTIAL THROMBOPLASTIN TIME (BEAKER) (test 49.4 seconds 22.5-36.0 evpj=900) CBC W/PLT COUNT & AUTO [id number] 03:46:00 Test Item Value Reference Range Comments WHITE BLOOD CELL COUNT (BEAKER) (test kzpu=153) 14.4 K/ L 3.5-10.5 RED BLOOD CELL COUNT (BEAKER) (test bqfm=956) 3.21 M/ L 4.63-6.08 HEMOGLOBIN (BEAKER) (test zqzw=751) 8.6 GM/DL 13.7-17.5 HEMATOCRIT (BEAKER) (test jzho=457) 28.6 % 40.1-51.0 MEAN CORPUSCULAR VOLUME (BEAKER) (test grxo=357) 89.1 fL 79.0-92.2 MEAN CORPUSCULAR HEMOGLOBIN (BEAKER) (test 26.8 pg 25.7-32.2 wnmr=190) MEAN CORPUSCULAR HEMOGLOBIN CONC (BEAKER) (test 30.1 GM/DL 32.3-36.5 dmok=888) RED CELL DISTRIBUTION WIDTH (BEAKER) (test 17.2 % 11.6-14.4 towu=889) PLATELET COUNT (BEAKER) (test gagv=197) 243 K/CU MM 150-450 MEAN PLATELET VOLUME (BEAKER) (test alan=549) 12.3 fL 9.4-12.4 NUCLEATED RED BLOOD CELLS (BEAKER) (test 0 /100 WBC 0-0 npnk=582) NEUTROPHILS RELATIVE PERCENT (BEAKER) (test 80 % ydvf=243) LYMPHOCYTES RELATIVE PERCENT (BEAKER) (test 7 % gtgy=437) MONOCYTES RELATIVE PERCENT (BEAKER) (test 7 % oukp=833) EOSINOPHILS RELATIVE PERCENT (BEAKER) (test 5 % xhed=412) BASOPHILS RELATIVE PERCENT (BEAKER) (test 0 % lprq=178) NEUTROPHILS ABSOLUTE COUNT (BEAKER) (test 11.50 K/ L 1.78-5.38 znbh=943) LYMPHOCYTES ABSOLUTE COUNT (BEAKER) (test 1.03 K/ L 1.32-3.57 cgyo=275) MONOCYTES ABSOLUTE COUNT (BEAKER) (test 0.96 K/ L 0.30-0.82 zzgi=899) EOSINOPHILS ABSOLUTE COUNT (BEAKER) (test 0.71 K/ L 0.04-0.54 rqmu=432) BASOPHILS ABSOLUTE COUNT (BEAKER) (test 0.06 K/ L 0.01-0.08 kfoh=701) IMMATURE GRANULOCYTES-RELATIVE PERCENT (BEAKER) 1 % 0-1 (test malr=5547) PROTHROMBIN TIME/[id number] 03:45:00 Test Item Value Reference Range Comments PROTIME (BEAKER) (test oejq=720) 16.2 seconds 11.7-14.7 INR (BEAKER) (test hnie=049) 1.3 <=5.9 RECOMMENDED COUMADIN/WARFARIN INR THERAPY RANGESSTANDARD DOSE: 2.0 - 3.0 Includes: PROPHYLAXIS forvenous thrombosis, systemic embolization; TREATMENT for venous thrombosis and/or pulmonary embolus.HIGH RISK: Target INR is 2.5-3.5 for patients with mechanical heart valves.POCT-GLUCOSE [id number] 23:23:00 Test Item Value Reference Range Comments POC-GLUCOSE METER (BEAKER) 123 mg/dL 70-110 TESTED AT [address] (test paam=7764) [place] [address] POCT-GLUCOSE [id number] 17:45:00 Test Item Value Reference Range Comments POC-GLUCOSE METER (BEAKER) 182 mg/dL 70-110 TESTED AT [address] (test nmug=4754) [place] [id number] POCT-GLUCOSE [id number] 12:28:00 Test Item Value Reference Range Comments POC-GLUCOSE METER (BEAKER) 159 mg/dL 70-110 TESTED AT [address] (test vezn=9207) [place] [id number] POCT-GLUCOSE [id number] 09:44:00 Test Item Value Reference Range Comments POC-GLUCOSE METER (BEAKER) 209 mg/dL 70-110 TESTED AT [address] (test kxfo=8416) [place] [id number] BASIC METABOLIC [id number] 04:58:00 Test Item Value Reference Range Comments SODIUM (BEAKER) (test 140 meq/L 136-145 mwol=413) POTASSIUM (BEAKER) (test 3.6 meq/L 3.5-5.1 nqvj=502) CHLORIDE (BEAKER) (test 100 meq/L 98-107 oyhk=020) CO2 (BEAKER) (test 20 meq/L 22-29 cuyz=795) BLOOD UREA NITROGEN 27 mg/dL 7-21 (BEAKER) (test vixd=256) CREATININE (BEAKER) (test 5.17 mg/dL 0.57-1.25 wvgw=320) GLUCOSE RANDOM (BEAKER) 160 mg/dL 70-105 (test mgky=953) CALCIUM (BEAKER) (test 9.0 mg/dL 8.4-10.2 dwqx=286) EGFR (BEAKER) (test 12 mL/min/1.73 sq m ESTIMATED GFR IS NOT gyak=0872) ACCURATE CREATININE CLEARANCE IN PREDICTING GLOMERULAR FILTRATION RATE. ESTIMATED GFR IS NOT APPLICABLE FOR DIALYSIS PATIENTS. [id number] 04:57:00 Test Item Value Reference Range Comments PHOSPHORUS (BEAKER) (test aauu=171) 4.7 mg/dL 2.3-4.7 [id number] 04:57:00 Test Item Value Reference Range Comments MAGNESIUM (BEAKER) (test yteo=820) 2.3 mg/dL 1.6-2.6 RAD, CHEST, 1 VIEW, NON [id number] 04:40:00Reason for exam:->s/p thoracic surgeryShould this be performed at the bedside?->YesFINAL REPORT RAD, CHEST, 1 VIEW, NON DEPT INDICATION: s/p thoracic surgery COMPARISON: Prior day's exam TECHNIQUE: Portable frontal view of the chest. IMPRESSION: Lines and tubes stable.Cardiomediastinal silhouette stable.Improved but persistent bilateral pneumothoraces, trace on the right and small on the left.Stable interstitial opacities in the left lung.No acute osseous abnormality. Signed: Angus Koehler MDReport Verified Date/Time: 07/02 04:40:28 Reading Location: [facility] C013 CT Body Reading Room [id number] 04:23:00 Test Item Value Reference Range Comments PARTIAL THROMBOPLASTIN TIME (BEAKER) (test 47.6 seconds 22.5-36.0 yofs=632) PROTHROMBIN [id number] 04:22:00 Test Item Value Reference Range Comments PROTIME (BEAKER) (test hkjq=014) 15.7 seconds 11.7-14.7 INR (BEAKER) (test giup=682) 1.3 <=5.9 RECOMMENDED COUMADIN/WARFARIN INR THERAPY RANGESSTANDARD DOSE: 2.0 - 3.0 Includes: PROPHYLAXIS forvenous thrombosis, systemic embolization; TREATMENT for venous thrombosis and/or pulmonary embolus.HIGH RISK: Target INR is 2.5-3.5 for patients with mechanical heart valves.CBC W/PLT COUNT & AUTO [id number] 04:20:00 Test Item Value Reference Range Comments WHITE BLOOD CELL COUNT (BEAKER) (test tzyv=078) 12.3 K/ L 3.5-10.5 RED BLOOD CELL COUNT (BEAKER) (test gwlu=065) 3.28 M/ L 4.63-6.08 HEMOGLOBIN (BEAKER) (test fdzw=105) 8.7 GM/DL 13.7-17.5 HEMATOCRIT (BEAKER) (test dwmm=491) 28.1 % 40.1-51.0 MEAN CORPUSCULAR VOLUME (BEAKER) (test fuco=822) 85.7 fL 79.0-92.2 MEAN CORPUSCULAR HEMOGLOBIN (BEAKER) (test 26.5 pg 25.7-32.2 hsmq=609) MEAN CORPUSCULAR HEMOGLOBIN CONC (BEAKER) (test 31.0 GM/DL 32.3-36.5 hwew=894) RED CELL DISTRIBUTION WIDTH (BEAKER) (test 16.5 % 11.6-14.4 dzfl=447) PLATELET COUNT (BEAKER) (test nech=562) 243 K/CU MM 150-450 MEAN PLATELET VOLUME (BEAKER) (test ilzb=882) 13.0 fL 9.4-12.4 NUCLEATED RED BLOOD CELLS (BEAKER) (test 0 /100 WBC 0-0 idxq=292) NEUTROPHILS RELATIVE PERCENT (BEAKER) (test 76 % khes=927) LYMPHOCYTES RELATIVE PERCENT (BEAKER) (test 11 % tcow=984) MONOCYTES RELATIVE PERCENT (BEAKER) (test 7 % ghvw=232) EOSINOPHILS RELATIVE PERCENT (BEAKER) (test 5 % gxxf=895) BASOPHILS RELATIVE PERCENT (BEAKER) (test 1 % guda=933) NEUTROPHILS ABSOLUTE COUNT (BEAKER) (test 9.38 K/ L 1.78-5.38 cilg=126) LYMPHOCYTES ABSOLUTE COUNT (BEAKER) (test 1.31 K/ L 1.32-3.57 nvxp=422) MONOCYTES ABSOLUTE COUNT (BEAKER) (test 0.88 K/ L 0.30-0.82 dqyf=195) EOSINOPHILS ABSOLUTE COUNT (BEAKER) (test 0.59 K/ L 0.04-0.54 wozs=480) BASOPHILS ABSOLUTE COUNT (BEAKER) (test 0.07 K/ L 0.01-0.08 hvxy=186) IMMATURE GRANULOCYTES-RELATIVE PERCENT (BEAKER) 1 % 0-1 (test ngad=9884) BLOOD GAS, [id number] 04:02:00 Test Item Value Reference Range Comments PH ARTERIAL (BEAKER) (test gikk=279) 7.52 7.35-7.45 PCO2 ARTERIAL (BEAKER) (test vpwp=478) 28 mmHg 35-45 PO2 ARTERIAL (BEAKER) (test qfvo=798) 232 mmHg 80-90 O2 SATURATION ARTERIAL (BEAKER) (test ajos=786) 99.6 % 96.0-97.0 HCO3 ARTERIAL (BEAKER) (test kyfc=134) 23 mmol/L 21-29 BASE EXCESS ARTERIAL (BEAKER) (test gvxe=446) 0.5 mmol/L -2.0-3.0 PATIENT TEMPERATURE (BEAKER) (test cdtk=9044) 37.0 C FIO2 (BEAKER) (test xtni=5890) 40.0 % POCT-GLUCOSE [id number] 23:22:00 Test Item Value Reference Range Comments POC-GLUCOSE METER (BEAKER) 139 mg/dL 70-110 TESTED AT [facility] [address] (test vdwd=8120) [facility] [address] POCT-GLUCOSE [id number] 17:28:00 Test Item Value Reference Range Comments POC-GLUCOSE METER (BEAKER) 178 mg/dL 70-110 TESTED AT [address] (test dfey=6298) [place] [id number] POCT-GLUCOSE [id number] 12:46:00 Test Item Value Reference Range Comments POC-GLUCOSE METER (BEAKER) 255 mg/dL 70-110 TESTED AT [address] (test lqzm=8933) [place] [id number] BODY FLUID CULTURE + GRAM [id number] 10:59:00 Test Item Value Reference Range Comments CULTURE (BEAKER) (test jprx=2853) No growth GRAM STAIN RESULT (BEAKER) (test No White blood cells seen dubg=4132) GRAM STAIN RESULT (BEAKER) (test No organisms seen bniz=87606) POCT-GLUCOSE [id number] 09:09:00 Test Item Value Reference Range Comments POC-GLUCOSE METER (BEAKER) 213 mg/dL 70-110 TESTED AT [address] (test tzoy=1227) [place] [id number] BASIC METABOLIC [id number] 05:51:00 Test Item Value Reference Range Comments SODIUM (BEAKER) (test 144 meq/L 136-145 zxwa=077) POTASSIUM (BEAKER) (test 4.0 meq/L 3.5-5.1 afod=526) CHLORIDE (BEAKER) (test 102 meq/L 98-107 bsee=126) CO2 (BEAKER) (test 17 meq/L 22-29 bgua=480) BLOOD UREA NITROGEN 13 mg/dL 7-21 (BEAKER) (test ntlo=355) CREATININE (BEAKER) (test 3.54 mg/dL 0.57-1.25 ddyy=949) GLUCOSE RANDOM (BEAKER) 157 mg/dL 70-105 (test ikbg=169) CALCIUM (BEAKER) (test 8.7 mg/dL 8.4-10.2 gzlb=282) EGFR (BEAKER) (test 19 mL/min/1.73 sq m ESTIMATED GFR IS NOT jatb=2462) ACCURATE CREATININE CLEARANCE IN PREDICTING GLOMERULAR FILTRATION RATE. ESTIMATED GFR IS NOT APPLICABLE FOR DIALYSIS PATIENTS. [id number] 05:50:00 Test Item Value Reference Range Comments PHOSPHORUS (BEAKER) (test opex=845) 4.2 mg/dL 2.3-4.7 [id number] 05:50:00 Test Item Value Reference Range Comments MAGNESIUM (BEAKER) (test glwj=137) 2.3 mg/dL 1.6-2.6 CBC W/PLT COUNT & AUTO [id number] 05:31:00 Test Item Value Reference Range Comments WHITE BLOOD CELL COUNT (BEAKER) (test sxgi=370) 12.5 K/ L 3.5-10.5 RED BLOOD CELL COUNT (BEAKER) (test zgvf=652) 3.37 M/ L 4.63-6.08 HEMOGLOBIN (BEAKER) (test ycpe=946) 8.9 GM/DL 13.7-17.5 HEMATOCRIT (BEAKER) (test ysra=576) 29.0 % 40.1-51.0 MEAN CORPUSCULAR VOLUME (BEAKER) (test oyye=444) 86.1 fL 79.0-92.2 MEAN CORPUSCULAR HEMOGLOBIN (BEAKER) (test 26.4 pg 25.7-32.2 rxyj=385) MEAN CORPUSCULAR HEMOGLOBIN CONC (BEAKER) (test 30.7 GM/DL 32.3-36.5 iwfv=607) RED CELL DISTRIBUTION WIDTH (BEAKER) (test 15.8 % 11.6-14.4 wtkg=285) PLATELET COUNT (BEAKER) (test ergt=304) 228 K/CU MM 150-450 MEAN PLATELET VOLUME (BEAKER) (test fzwc=504) 13.0 fL 9.4-12.4 NUCLEATED RED BLOOD CELLS (BEAKER) (test 0 /100 WBC 0-0 hbme=442) NEUTROPHILS RELATIVE PERCENT (BEAKER) (test 80 % upec=595) LYMPHOCYTES RELATIVE PERCENT (BEAKER) (test 10 % puxi=159) MONOCYTES RELATIVE PERCENT (BEAKER) (test 7 % piws=016) EOSINOPHILS RELATIVE PERCENT (BEAKER) (test 2 % tnpd=056) BASOPHILS RELATIVE PERCENT (BEAKER) (test 1 % ouub=986) NEUTROPHILS ABSOLUTE COUNT (BEAKER) (test 9.94 K/ L 1.78-5.38 ptsh=653) LYMPHOCYTES ABSOLUTE COUNT (BEAKER) (test 1.27 K/ L 1.32-3.57 dwyo=886) MONOCYTES ABSOLUTE COUNT (BEAKER) (test 0.87 K/ L 0.30-0.82 xdkd=398) EOSINOPHILS ABSOLUTE COUNT (BEAKER) (test 0.19 K/ L 0.04-0.54 iftg=794) BASOPHILS ABSOLUTE COUNT (BEAKER) (test 0.07 K/ L 0.01-0.08 kwtq=439) IMMATURE GRANULOCYTES-RELATIVE PERCENT (BEAKER) 1 % 0-1 (test tozc=6610) PROTHROMBIN [id number] 05:26:00 Test Item Value Reference Range Comments PROTIME (BEAKER) (test xrrt=671) 15.4 seconds 11.7-14.7 INR (BEAKER) (test dlgq=599) 1.2 <=5.9 RECOMMENDED COUMADIN/WARFARIN INR THERAPY RANGESSTANDARD DOSE: 2.0 - 3.0 Includes: PROPHYLAXIS forvenous thrombosis, systemic embolization; TREATMENT for venous thrombosis and/or pulmonary embolus.HIGH RISK: Target INR is 2.5-3.5 for patients with mechanical heart valves.[id number] 05:26:00 Test Item Value Reference Range Comments PARTIAL THROMBOPLASTIN TIME (BEAKER) (test 38.6 seconds 22.5-36.0 dhir=926) BLOOD GAS, [id number] 04:31:00 Test Item Value Reference Range Comments PH ARTERIAL (BEAKER) (test ynnl=013) 7.46 7.35-7.45 PCO2 ARTERIAL (BEAKER) (test uxgi=766) 24 mmHg 35-45 PO2 ARTERIAL (BEAKER) (test pjag=784) 280 mmHg 80-90 O2 SATURATION ARTERIAL (BEAKER) (test kzri=657) 99.7 % 96.0-97.0 HCO3 ARTERIAL (BEAKER) (test susz=566) 17 mmol/L 21-29 BASE EXCESS ARTERIAL (BEAKER) (test npny=383) -5.8 mmol/L -2.0-3.0 PATIENT TEMPERATURE (BEAKER) (test jmeg=7036) 37.0 C FIO2 (BEAKER) (test xmzn=9924) 50.0 % RAD, CHEST, 1 VIEW, NON [id number] 04:31:00Reason for exam:->s/p thoracic surgeryShould this be performed at the bedside?->YesFINAL REPORT RAD, CHEST, 1 VIEW, NON DEPT INDICATION: s/p thoracic surgery COMPARISON: Prior day's exam TECHNIQUE: Portable frontal view of the chest. IMPRESSION: Lines and tubes stable.Stable cardiomegaly.Stable bilateral pneumothoraces, left greater than right.Stable interstitial opacities in the left lung.No acute osseous abnormality. Signed: Angus Koehler MDReport Verified Date/Time: 07/01/2017 04:31:20 Reading Location: [facility] C013Y CT Body Reading Room 04: 31 AMBLOOD GAS, [id number] 20:48:00 Test Item Value Reference Range Comments PH ARTERIAL (BEAKER) (test fija=227) 7.52 7.35-7.45 PCO2 ARTERIAL (BEAKER) (test jrho=014) 26 mmHg 35-45 PO2 ARTERIAL (BEAKER) (test ibtt=280) 267 mmHg 80-90 O2 SATURATION ARTERIAL (BEAKER) (test jame=002) 99.7 % 96.0-97.0 HCO3 ARTERIAL (BEAKER) (test hkot=356) 21 mmol/L 21-29 BASE EXCESS ARTERIAL (BEAKER) (test nhdn=851) -1.2 mmol/L -2.0-3.0 PATIENT TEMPERATURE (BEAKER) (test teec=6808) 37.0 C FIO2 (BEAKER) (test qgox=5735) 50.0 % PROTHROMBIN [id number] 15:11:00 Test Item Value Reference Range Comments PROTIME (BEAKER) (test uqok=734) 15.1 seconds 11.7-14.7 INR (BEAKER) (test naxa=126) 1.2 <=5.9 RECOMMENDED COUMADIN/WARFARIN INR THERAPY RANGESSTANDARD DOSE: 2.0 - 3.0 Includes: PROPHYLAXIS forvenous thrombosis, systemic embolization; TREATMENT for venous thrombosis and/or pulmonary embolus.HIGH RISK: Target INR is 2.5-3.5 for patients with mechanical heart valves.[id number] 15:11:00 Test Item Value Reference Range Comments PARTIAL THROMBOPLASTIN TIME (BEAKER) (test 30.9 seconds 22.5-36.0 ytic=995) RAD, CHEST, 1 VIEW, NON [id number] 15:11:00Reason for exam:->s/p thoracic surgeryShould this be [...] MDReport Verified Date/Time: 06/30/2017 15:11:38 Reading Location: [address] Transitional Reading Room CBC W/PLT COUNT & AUTO [id number] 15:01:00 Test Item Value Reference Range Comments WHITE BLOOD CELL COUNT (BEAKER) (test bhzr=231) 9.1 K/ L 3.5-10.5 RED BLOOD CELL COUNT (BEAKER) (test fhuw=498) 3.19 M/ L 4.63-6.08 HEMOGLOBIN (BEAKER) (test nqui=391) 8.4 GM/DL 13.7-17.5 HEMATOCRIT (BEAKER) (test geat=513) 27.2 % 40.1-51.0 MEAN CORPUSCULAR VOLUME (BEAKER) (test grya=855) 85.3 fL 79.0-92.2 MEAN CORPUSCULAR HEMOGLOBIN (BEAKER) (test 26.3 pg 25.7-32.2 bfbl=573) MEAN CORPUSCULAR HEMOGLOBIN CONC (BEAKER) (test 30.9 GM/DL 32.3-36.5 ryks=680) RED CELL DISTRIBUTION WIDTH (BEAKER) (test 14.7 % 11.6-14.4 gyjl=686) PLATELET COUNT (BEAKER) (test iaxq=181) 214 K/CU MM 150-450 MEAN PLATELET VOLUME (BEAKER) (test baic=334) 13.0 fL 9.4-12.4 NUCLEATED RED BLOOD CELLS (BEAKER) (test 0 /100 WBC 0-0 pvbl=051) NEUTROPHILS RELATIVE PERCENT (BEAKER) (test 85 % paad=083) LYMPHOCYTES RELATIVE PERCENT (BEAKER) (test 6 % lnnz=376) MONOCYTES RELATIVE PERCENT (BEAKER) (test 6 % aqaw=792) EOSINOPHILS RELATIVE PERCENT (BEAKER) (test 2 % kwsp=500) BASOPHILS RELATIVE PERCENT (BEAKER) (test 1 % vtar=760) NEUTROPHILS ABSOLUTE COUNT (BEAKER) (test 7.68 K/ L 1.78-5.38 xrjl=979) LYMPHOCYTES ABSOLUTE COUNT (BEAKER) (test 0.56 K/ L 1.32-3.57 drec=512) MONOCYTES ABSOLUTE COUNT (BEAKER) (test 0.52 K/ L 0.30-0.82 smxl=996) EOSINOPHILS ABSOLUTE COUNT (BEAKER) (test 0.18 K/ L 0.04-0.54 dqtb=268) BASOPHILS ABSOLUTE COUNT (BEAKER) (test 0.05 K/ L 0.01-0.08 wffm=128) IMMATURE GRANULOCYTES-RELATIVE PERCENT (BEAKER) 1 % 0-1 (test mszs=5590) BASIC METABOLIC [id number] 14:57:00 Test Item Value Reference Range Comments SODIUM (BEAKER) (test 137 meq/L 136-145 crek=805) POTASSIUM (BEAKER) (test 5.1 meq/L 3.5-5.1 xtfy=025) CHLORIDE (BEAKER) (test 99 meq/L 98-107 jdum=632) CO2 (BEAKER) (test 15 meq/L 22-29 hpzz=204) BLOOD UREA NITROGEN 36 mg/dL 7-21 (BEAKER) (test ernk=555) CREATININE (BEAKER) (test 7.10 mg/dL 0.57-1.25 guee=664) GLUCOSE RANDOM (BEAKER) 235 mg/dL 70-105 (test wlql=139) CALCIUM (BEAKER) (test 8.8 mg/dL 8.4-10.2 sptg=683) EGFR (BEAKER) (test 9 mL/min/1.73 sq m ESTIMATED GFR IS NOT near=0832) ACCURATE CREATININE CLEARANCE IN PREDICTING GLOMERULAR FILTRATION RATE. ESTIMATED GFR IS NOT APPLICABLE FOR DIALYSIS PATIENTS. [id number] 14:54:00 Test Item Value Reference Range Comments MAGNESIUM (BEAKER) (test bdrr=135) 2.1 mg/dL 1.6-2.6 BLOOD GAS, [id number] 14:28:00 Test Item Value Reference Range Comments PH ARTERIAL (BEAKER) (test aavi=223) 7.53 7.35-7.45 PCO2 ARTERIAL (BEAKER) (test yxvz=109) 21 mmHg 35-45 PO2 ARTERIAL (BEAKER) (test wihx=830) 336 mmHg 80-90 O2 SATURATION ARTERIAL (BEAKER) (test dpbr=182) 99.8 % 96.0-97.0 HCO3 ARTERIAL (BEAKER) (test hkbe=343) 17 mmol/L 21-29 BASE EXCESS ARTERIAL (BEAKER) (test fdbz=858) -5.0 mmol/L -2.0-3.0 PATIENT TEMPERATURE (BEAKER) (test tgax=2408) 36.1 C FIO2 (BEAKER) (test psyb=4799) 60.0 % BLOOD GAS, [id number] 10:25:00 Test Item Value Reference Range Comments PH ARTERIAL (BEAKER) (test whws=841) 7.50 7.35-7.45 PCO2 ARTERIAL (BEAKER) (test ndzx=863) 31 mmHg 35-45 PO2 ARTERIAL (BEAKER) (test xnga=484) 570 mmHg 80-90 O2 SATURATION ARTERIAL (BEAKER) (test xmey=224) 99.9 % 96.0-97.0 HCO3 ARTERIAL (BEAKER) (test ztkh=944) 24 mmol/L 21-29 BASE EXCESS ARTERIAL (BEAKER) (test pyud=701) 0.5 mmol/L -2.0-3.0 PATIENT TEMPERATURE (BEAKER) (test isyz=3818) 34.6 C FIO2 (BEAKER) (test ufee=3459) 100.0 % SODIUM NA-STAT [id number] 10:25:00 Test Item Value Reference Range Comments SODIUM (BEAKER) (test fwsf=206) 134 meq/L 135-148 GLUCOSE-STAT [id number] 10:25:00 Test Item Value Reference Range Comments GLUCOSE RANDOM (BEAKER) (test ylto=137) 193 mg/dL 70-110 HGB/HCT (H&H) - STAT [id number] 10:25:00 Test Item Value Reference Range Comments HEMOGLOBIN (BEAKER) (test pzxm=067) 9.8 g/dL 13.0-16.8 HEMATOCRIT (BEAKER) (test dwed=510) 29.0 % 40.0-50.0 POTASSIUM-STAT [id number] 10:23:00 Test Item Value Reference Range Comments POTASSIUM (BEAKER) (test jtkt=094) 4.5 meq/L 3.6-5.5 POCT-GLUCOSE [id number] 07:34:00 Test Item Value Reference Range Comments POC-GLUCOSE METER (BEAKER) 163 mg/dL 70-110 TESTED AT [facility] [address] [facility] (test pauh=9446) [facility] [address] [id number] 05:59:00 Test Item Value Reference Range Comments MAGNESIUM (BEAKER) (test 2.5 mg/dL 1.6-2.6 Specimen slightly hemolyzed klze=462) [id number] 05:59:00 Test Item Value Reference Range Comments PHOSPHORUS (BEAKER) (test 4.5 mg/dL 2.3-4.7 Specimen slightly hemolyzed kazc=061) BASIC METABOLIC [id number] 05:59:00 Test Item Value Reference Range Comments SODIUM (BEAKER) (test 137 meq/L 136-145 clbz=376) POTASSIUM (BEAKER) (test 4.9 meq/L 3.5-5.1 Specimen slightly kxcl=743) hemolyzed CHLORIDE (BEAKER) (test 97 meq/L 98-107 mqla=078) CO2 (BEAKER) (test 22 meq/L 22-29 bvpm=626) BLOOD UREA NITROGEN 33 mg/dL 7-21 (BEAKER) (test spye=642) CREATININE (BEAKER) (test 6.63 mg/dL 0.57-1.25 Specimen slightly cnim=197) hemolyzed GLUCOSE RANDOM (BEAKER) 173 mg/dL 70-105 (test krvz=538) CALCIUM (BEAKER) (test 9.3 mg/dL 8.4-10.2 kwtc=186) EGFR (BEAKER) (test 9 mL/min/1.73 sq m ESTIMATED GFR IS NOT thnt=8045) ACCURATE CREATININE CLEARANCE IN PREDICTING GLOMERULAR FILTRATION RATE. ESTIMATED GFR IS NOT APPLICABLE FOR DIALYSIS PATIENTS. CBC W/PLT COUNT & AUTO [id number] 05:56:00 Test Item Value Reference Range Comments WHITE BLOOD CELL COUNT (BEAKER) (test zheu=025) 8.2 K/ L 3.5-10.5 RED BLOOD CELL COUNT (BEAKER) (test nynr=057) 3.86 M/ L 4.63-6.08 HEMOGLOBIN (BEAKER) (test mmoq=366) 10.3 GM/DL 13.7-17.5 HEMATOCRIT (BEAKER) (test uurh=280) 33.3 % 40.1-51.0 MEAN CORPUSCULAR VOLUME (BEAKER) (test xqra=538) 86.3 fL 79.0-92.2 MEAN CORPUSCULAR HEMOGLOBIN (BEAKER) (test 26.7 pg 25.7-32.2 uxlc=664) MEAN CORPUSCULAR HEMOGLOBIN CONC (BEAKER) (test 30.9 GM/DL 32.3-36.5 xpwh=373) RED CELL DISTRIBUTION WIDTH (BEAKER) (test 14.8 % 11.6-14.4 sdgw=129) PLATELET COUNT (BEAKER) (test nmlm=498) 251 K/CU MM 150-450 MEAN PLATELET VOLUME (BEAKER) (test hiyz=510) 12.8 fL 9.4-12.4 NUCLEATED RED BLOOD CELLS (BEAKER) (test 0 /100 WBC 0-0 fdhx=765) NEUTROPHILS RELATIVE PERCENT (BEAKER) (test 63 % mlnj=299) LYMPHOCYTES RELATIVE PERCENT (BEAKER) (test 18 % uiil=068) MONOCYTES RELATIVE PERCENT (BEAKER) (test 8 % kpog=172) EOSINOPHILS RELATIVE PERCENT (BEAKER) (test 9 % afei=971) BASOPHILS RELATIVE PERCENT (BEAKER) (test 1 % naus=098) NEUTROPHILS ABSOLUTE COUNT (BEAKER) (test 5.19 K/ L 1.78-5.38 hirt=552) LYMPHOCYTES ABSOLUTE COUNT (BEAKER) (test 1.50 K/ L 1.32-3.57 kyos=279) MONOCYTES ABSOLUTE COUNT (BEAKER) (test 0.65 K/ L 0.30-0.82 zxsw=302) EOSINOPHILS ABSOLUTE COUNT (BEAKER) (test 0.70 K/ L 0.04-0.54 fwqr=275) BASOPHILS ABSOLUTE COUNT (BEAKER) (test 0.11 K/ L 0.01-0.08 hszc=010) IMMATURE GRANULOCYTES-RELATIVE PERCENT (BEAKER) 1 % 0-1 (test gpap=2314) POCT-GLUCOSE [id number] 21:18:00 Test Item Value Reference Range Comments POC-GLUCOSE METER (BEAKER) 194 mg/dL 70-110 TESTED AT [place] [id number] [facility] (test cemk=7283) [facility] [address] RAD, CHEST, 1 VIEW, NON [id number] 19:48:00Reason for exam:->chest tube removalReason for exam:->chest [...] Continued imaging surveillance recommended. Signed: Ganesh Anderson Verified Date/Time: 06/29/2017 19:48:42 Reading Location: [address] Reading Room POCT-GLUCOSE [id number] 17:25:00 Test Item Value Reference Range Comments POC-GLUCOSE METER (BEAKER) 166 mg/dL 70-110 TESTED AT [address] (test eotn=0038) [facility] [address] [id number] 09:50:00 Test Item Value Reference Range Comments PROTIME (BEAKER) (test gjrr=807) 13.1 seconds 11.7-14.7 INR (BEAKER) (test qoab=196) 1.0 <=5.9 PARTIAL THROMBOPLASTIN TIME (BEAKER) (test 29.4 seconds 22.5-36.0 dmlj=574) RECOMMENDED COUMADIN/WARFARIN INR THERAPY RANGESSTANDARD DOSE: 2.0 - 3.0 Includes: PROPHYLAXIS forvenous thrombosis, systemic embolization; TREATMENT for venous thrombosis and/or pulmonary embolus.HIGH RISK: Target INR is 2.5-3.5 for patients with mechanical heart valves.POCT-GLUCOSE [id number] 07:13:00 Test Item Value Reference Range Comments POC-GLUCOSE METER (BEAKER) 132 mg/dL 70-110 TESTED AT [facility] [address] [facility] (test kxmm=2283) [facility] [address] BASIC METABOLIC [id number] 04:59:00 Test Item Value Reference Range Comments SODIUM (BEAKER) (test 139 meq/L 136-145 trqa=930) POTASSIUM (BEAKER) (test 4.1 meq/L 3.5-5.1 gpdm=660) CHLORIDE (BEAKER) (test 100 meq/L 98-107 fcxf=408) CO2 (BEAKER) (test 26 meq/L 22-29 xesn=444) BLOOD UREA NITROGEN 17 mg/dL 7-21 (BEAKER) (test dfmu=711) CREATININE (BEAKER) (test 4.77 mg/dL 0.57-1.25 epdt=739) GLUCOSE RANDOM (BEAKER) 114 mg/dL 70-105 (test zwiu=982) CALCIUM (BEAKER) (test 8.7 mg/dL 8.4-10.2 cnhp=777) EGFR (BEAKER) (test 14 mL/min/1.73 sq m ESTIMATED GFR IS NOT fdpx=3405) ACCURATE CREATININE CLEARANCE IN PREDICTING GLOMERULAR FILTRATION RATE. ESTIMATED GFR IS NOT APPLICABLE FOR DIALYSIS PATIENTS. [id number] 04:54:00 Test Item Value Reference Range Comments PHOSPHORUS (BEAKER) (test fcij=049) 3.2 mg/dL 2.3-4.7 [id number] 04:54:00 Test Item Value Reference Range Comments MAGNESIUM (BEAKER) (test ggjp=615) 2.0 mg/dL 1.6-2.6 CBC W/PLT COUNT & AUTO [id number] 04:35:00 Test Item Value Reference Range Comments WHITE BLOOD CELL COUNT (BEAKER) (test fqca=914) 8.1 K/ L 3.5-10.5 RED BLOOD CELL COUNT (BEAKER) (test uada=859) 3.48 M/ L 4.63-6.08 HEMOGLOBIN (BEAKER) (test qegi=317) 9.4 GM/DL 13.7-17.5 HEMATOCRIT (BEAKER) (test knxs=354) 30.4 % 40.1-51.0 MEAN CORPUSCULAR VOLUME (BEAKER) (test rgxv=422) 87.4 fL 79.0-92.2 MEAN CORPUSCULAR HEMOGLOBIN (BEAKER) (test 27.0 pg 25.7-32.2 ghbb=744) MEAN CORPUSCULAR HEMOGLOBIN CONC (BEAKER) (test 30.9 GM/DL 32.3-36.5 fgnd=382) RED CELL DISTRIBUTION WIDTH (BEAKER) (test 14.6 % 11.6-14.4 ntjx=404) PLATELET COUNT (BEAKER) (test gygj=758) 196 K/CU MM 150-450 MEAN PLATELET VOLUME (BEAKER) (test wqme=033) 12.7 fL 9.4-12.4 NUCLEATED RED BLOOD CELLS (BEAKER) (test 0 /100 WBC 0-0 pipm=869) NEUTROPHILS RELATIVE PERCENT (BEAKER) (test 63 % ishr=634) LYMPHOCYTES RELATIVE PERCENT (BEAKER) (test 18 % nyri=712) MONOCYTES RELATIVE PERCENT (BEAKER) (test 8 % tqje=891) EOSINOPHILS RELATIVE PERCENT (BEAKER) (test 9 % yjcj=683) BASOPHILS RELATIVE PERCENT (BEAKER) (test 1 % kdbl=228) NEUTROPHILS ABSOLUTE COUNT (BEAKER) (test 5.11 K/ L 1.78-5.38 drvg=234) LYMPHOCYTES ABSOLUTE COUNT (BEAKER) (test 1.44 K/ L 1.32-3.57 ueph=699) MONOCYTES ABSOLUTE COUNT (BEAKER) (test 0.67 K/ L 0.30-0.82 xaju=015) EOSINOPHILS ABSOLUTE COUNT (BEAKER) (test 0.72 K/ L 0.04-0.54 lkkk=889) BASOPHILS ABSOLUTE COUNT (BEAKER) (test 0.10 K/ L 0.01-0.08 chsd=842) IMMATURE GRANULOCYTES-RELATIVE PERCENT (BEAKER) 0 % 0-1 (test bcqs=6008) POCT-GLUCOSE [id number] 21:16:00 Test Item Value Reference Range Comments POC-GLUCOSE METER (BEAKER) 136 mg/dL 70-110 TESTED AT [facility] [address] [facility] (test jwoj=5387) [facility] [address] BODY FLUID CELL COUNT WITH [id number] 19:37:00 Test Item Value Reference Range Comments APPEARANCE FLUID (BEAKER) (test fxbz=333) Bloody Clear COLOR FLUID (BEAKER) (test rsal=044) Red Colorless, Straw RBC FLUID (BEAKER) (test daml=753) [address] /cu mm <=1 ADJUSTED WBC FLUID (BEAKER) (test mgnt=0901) 255 /cu mm <=5 LINING CELLS (BEAKER) (test hbwk=5546) 0 /cu mm <=1 NEUTROPHILS FLUID (BEAKER) (test epfh=2849) 5 % LYMPHS FLUID (BEAKER) (test uutp=370) 91 % MONO/MACROPHAGE FLUID (BEAKER) (test xwkv=215) 1 % EOSINOPHILS FLUID (BEAKER) (test swsi=595) 2 % BASO FLUID (BEAKER) (test tzci=203) 1 % CONTAINER BODY FLUID (BEAKER) (test hehu=1144) EDTA Tube PH, BODY [id number] 19:09:00 Test Item Value Reference Range Comments PH, BODY FLUID (BEAKER) (test emcb=0647) 9.00 LACTATE DEHYDROGENASE (LDH), BODY [id number] 19:06:00 Test Item Value Reference Range Comments LACTATE DEHYDROGENASE FLUID (BEAKER) 100 U/L Light's criteria identifies (test bfda=074) effusions if one or more are pre Absence of reference range indicates that normals have not been defined.Assay performance has not been validated for this type of specimen.PROTEIN, BODY [id number] 19:06:00 Test Item Value Reference Range Comments PROTEIN FLUID (BEAKER) (test 1.5 g/dL Light's criteria identifies xmia=511) effusions if one or more are pre Absence of reference range indicates that normals have not been defined.Assay performance has not been validated for this type of specimen.GLUCOSE, BODY [id number] 19:06:00 Test Item Value Reference Range Comments GLUCOSE, BODY FLUID (BEAKER) (test sljq=7614) 108 mg/dL 70-110 Absence of reference range indicates that normals have not been defined.Assay performance has not been validated for this type of specimen.POCT-GLUCOSE [id number] 17:15:00 Test Item Value Reference Range Comments POC-GLUCOSE METER (BEAKER) 75 mg/dL 70-110 TESTED AT [address] (test gvme=5766) [place] [id number] POCT-GLUCOSE [id number] 13:05:00 Test Item Value Reference Range Comments POC-GLUCOSE METER (BEAKER) 112 mg/dL 70-110 TESTED AT [address] (test pijk=3208) [place] [address] HEPATITIS B SURFACE [id number] 10:55:00 Test Item Value Reference Range Comments HEPATITIS B SURFACE ANTIGEN (2) (BEAKER) (test Nonreactive Nonreactive viii=0558) POCT-GLUCOSE [id number] 08:37:00 Test Item Value Reference Range Comments POC-GLUCOSE METER (BEAKER) 193 mg/dL 70-110 TESTED AT [address] (test nukq=9599) [place] [address] [id number] 07:16:00 Test Item Value Reference Range Comments PHOSPHORUS (BEAKER) (test fgsp=179) 5.9 mg/dL 2.3-4.7 [id number] 07:16:00 Test Item Value Reference Range Comments POTASSIUM (BEAKER) (test mgru=025) 5.9 meq/L 3.5-5.1 BASIC METABOLIC [id number] 05:42:00 Test Item Value Reference Range Comments SODIUM (BEAKER) (test 139 meq/L 136-145 ylah=441) POTASSIUM (BEAKER) (test 5.7 meq/L 3.5-5.1 twkl=724) CHLORIDE (BEAKER) (test 98 meq/L 98-107 tvoa=796) CO2 (BEAKER) (test 23 meq/L 22-29 nntu=675) BLOOD UREA NITROGEN 38 mg/dL 7-21 (BEAKER) (test myjq=124) CREATININE (BEAKER) (test 7.91 mg/dL 0.57-1.25 gvcs=968) GLUCOSE RANDOM (BEAKER) 177 mg/dL 70-105 (test dzaa=457) CALCIUM (BEAKER) (test 8.6 mg/dL 8.4-10.2 xgoa=203) EGFR (BEAKER) (test 8 mL/min/1.73 sq m ESTIMATED GFR IS NOT lwvs=2070) ACCURATE CREATININE CLEARANCE IN PREDICTING GLOMERULAR FILTRATION RATE. ESTIMATED GFR IS NOT APPLICABLE FOR DIALYSIS PATIENTS. [id number] 05:34:00 Test Item Value Reference Range Comments PHOSPHORUS (BEAKER) (test zztd=674) 5.9 mg/dL 2.3-4.7 [id number] 05:34:00 Test Item Value Reference Range Comments MAGNESIUM (BEAKER) (test eusm=290) 2.3 mg/dL 1.6-2.6 CBC W/PLT COUNT & AUTO [id number] 05:07:00 Test Item Value Reference Range Comments WHITE BLOOD CELL COUNT (BEAKER) (test qikg=764) 8.6 K/ L 3.5-10.5 RED BLOOD CELL COUNT (BEAKER) (test dgjo=058) 3.42 M/ L 4.63-6.08 HEMOGLOBIN (BEAKER) (test tstv=960) 9.2 GM/DL 13.7-17.5 HEMATOCRIT (BEAKER) (test dqme=322) 30.7 % 40.1-51.0 MEAN CORPUSCULAR VOLUME (BEAKER) (test untj=457) 89.8 fL 79.0-92.2 MEAN CORPUSCULAR HEMOGLOBIN (BEAKER) (test 26.9 pg 25.7-32.2 dkmg=431) MEAN CORPUSCULAR HEMOGLOBIN CONC (BEAKER) (test 30.0 GM/DL 32.3-36.5 krqk=763) RED CELL DISTRIBUTION WIDTH (BEAKER) (test 14.5 % 11.6-14.4 isfk=762) PLATELET COUNT (BEAKER) (test yqal=536) 213 K/CU MM 150-450 MEAN PLATELET VOLUME (BEAKER) (test uovt=720) 13.6 fL 9.4-12.4 NUCLEATED RED BLOOD CELLS (BEAKER) (test 0 /100 WBC 0-0 jcvi=268) NEUTROPHILS RELATIVE PERCENT (BEAKER) (test 71 % snut=487) LYMPHOCYTES RELATIVE PERCENT (BEAKER) (test 13 % xxcm=950) MONOCYTES RELATIVE PERCENT (BEAKER) (test 7 % hybx=384) EOSINOPHILS RELATIVE PERCENT (BEAKER) (test 7 % mjxs=768) BASOPHILS RELATIVE PERCENT (BEAKER) (test 1 % vuuy=345) NEUTROPHILS ABSOLUTE COUNT (BEAKER) (test 6.11 K/ L 1.78-5.38 grui=444) LYMPHOCYTES ABSOLUTE COUNT (BEAKER) (test 1.15 K/ L 1.32-3.57 tdez=969) MONOCYTES ABSOLUTE COUNT (BEAKER) (test 0.60 K/ L 0.30-0.82 zvcp=134) EOSINOPHILS ABSOLUTE COUNT (BEAKER) (test 0.62 K/ L 0.04-0.54 axzq=586) BASOPHILS ABSOLUTE COUNT (BEAKER) (test 0.10 K/ L 0.01-0.08 ykxf=007) IMMATURE GRANULOCYTES-RELATIVE PERCENT (BEAKER) 0 % 0-1 (test xmym=0822) CT, CHEST, WITHOUT [id number] 22:28:00FINAL REPORT CT scan of the chest. [...] Verified Date/Time: 06/27/2017 22:28 :12 Reading Location: [facility] B1 [id number] Consult Reading Room POCT-GLUCOSE [id number] 21:41:00 Test Item Value Reference Range Comments POC-GLUCOSE METER (BEAKER) 184 mg/dL 70-110 TESTED AT [address] (test uqwn=0902) [facility] [address] POCT-GLUCOSE [id number] 17:20:00 Test Item Value Reference Range Comments POC-GLUCOSE METER (BEAKER) 124 mg/dL 70-110 TESTED AT [address] (test ueki=5220) [facility] [address] POCT-GLUCOSE [id number] 12:06:00 Test Item Value Reference Range Comments POC-GLUCOSE METER (BEAKER) 122 mg/dL 70-110 TESTED AT [address] (test moff=6326) [facility] [address] HEMOGLOBIN [id number] 11:32:00 Test Item Value Reference Range Comments HEMOGLOBIN A1C (BEAKER) (test gtao=726) 7.0 % 4.3-6.1 RAD, CHEST, 1 VIEW, NON [id number] 08:02:00Reason for exam:->Eval pleural effusionShould this be [...] The bones appear intact. Signed: Alexis Desai Verified Date/Time: 06/27/2017 08:02:11 Reading Location: [facility] Radiology Reading Room [id number] 05:48:00 Test Item Value Reference Range Comments FERRITIN (BEAKER) (test hnsl=002) 1317 ng/mL 5-275 VITAMIN D, [id number] 05:48:00 Test Item Value Reference Range Comments VITAMIN D 25-OH (BEAKER) (test qutg=1911) 15.7 ng/mL 6.6-49.9 Effective 11/15/2016: Reference Range ChangeNew: 6.6-49.9 ng/mL Previous: 13.0 -47.8 ng/mLRecommended Vitamin D Target Range: 30.0-40.0 ng/mLBASIC METABOLIC [id number] 05:38:00 Test Item Value Reference Range Comments SODIUM (BEAKER) (test 140 meq/L 136-145 vxds=605) POTASSIUM (BEAKER) (test 4.8 meq/L 3.5-5.1 txuk=797) CHLORIDE (BEAKER) (test 100 meq/L 98-107 naxi=354) CO2 (BEAKER) (test 26 meq/L 22-29 lxdv=029) BLOOD UREA NITROGEN 21 mg/dL 7-21 (BEAKER) (test dduz=836) CREATININE (BEAKER) (test 5.97 mg/dL 0.57-1.25 nkyy=488) GLUCOSE RANDOM (BEAKER) 98 mg/dL 70-105 (test tprv=482) CALCIUM (BEAKER) (test 8.5 mg/dL 8.4-10.2 vbaw=896) EGFR (BEAKER) (test 10 mL/min/1.73 sq m ESTIMATED GFR IS NOT ylae=8576) ACCURATE CREATININE CLEARANCE IN PREDICTING GLOMERULAR FILTRATION RATE. ESTIMATED GFR IS NOT APPLICABLE FOR DIALYSIS PATIENTS. [id number] 05:35:00 Test Item Value Reference Range Comments PHOSPHORUS (BEAKER) (test doia=972) 3.8 mg/dL 2.3-4.7 [id number] 05:35:00 Test Item Value Reference Range Comments MAGNESIUM (BEAKER) (test vmgq=878) 2.2 mg/dL 1.6-2.6 VANCOMYCIN LEVEL, [id number] 05:27:00 Test Item Value Reference Range Comments VANCOMYCIN RANDOM (BEAKER) (test sjyg=998) < ug/mL Reference Range: No NormalsPTH, [id number] 05:27:00 Test Item Value Reference Range Comments PARATHYROID HORMONE INTACT (BEAKER) (test 330.0 pg/mL 8.5-72.5 riwz=918) IRON, TIBC, % SAT. (WITHOUT FERRITIN)2017-06-27 05:26:00 Test Item Value Reference Range Comments IRON (BEAKER) (test hjho=621) 35 ug/dL 40-160 TOTAL IRON BINDING CAPACITY (BEAKER) (test 121 ug/dL 250-450 bfuq=799) IRON % SATURATION (2) (BEAKER) (test nxyv=6044) 29 % 20-55 CBC W/PLT COUNT & AUTO [id number] 05:05:00 Test Item Value Reference Range Comments WHITE BLOOD CELL COUNT (BEAKER) (test rheg=043) 8.8 K/ L 3.5-10.5 RED BLOOD CELL COUNT (BEAKER) (test mghj=068) 3.30 M/ L 4.63-6.08 HEMOGLOBIN (BEAKER) (test bnep=188) 8.7 GM/DL 13.7-17.5 HEMATOCRIT (BEAKER) (test ucli=465) 29.2 % 40.1-51.0 MEAN CORPUSCULAR VOLUME (BEAKER) (test iypp=165) 88.5 fL 79.0-92.2 MEAN CORPUSCULAR HEMOGLOBIN (BEAKER) (test 26.4 pg 25.7-32.2 wiob=109) MEAN CORPUSCULAR HEMOGLOBIN CONC (BEAKER) (test 29.8 GM/DL 32.3-36.5 qets=326) RED CELL DISTRIBUTION WIDTH (BEAKER) (test 14.6 % 11.6-14.4 wrvm=019) PLATELET COUNT (BEAKER) (test tvkk=814) 181 K/CU MM 150-450 MEAN PLATELET VOLUME (BEAKER) (test sxty=578) 13.5 fL 9.4-12.4 NUCLEATED RED BLOOD CELLS (BEAKER) (test 0 /100 WBC 0-0 rvis=017) NEUTROPHILS RELATIVE PERCENT (BEAKER) (test 74 % cmqh=157) LYMPHOCYTES RELATIVE PERCENT (BEAKER) (test 12 % fvlv=931) MONOCYTES RELATIVE PERCENT (BEAKER) (test 7 % emfe=163) EOSINOPHILS RELATIVE PERCENT (BEAKER) (test 7 % juep=069) BASOPHILS RELATIVE PERCENT (BEAKER) (test 1 % bqgk=897) NEUTROPHILS ABSOLUTE COUNT (BEAKER) (test 6.43 K/ L 1.78-5.38 siqm=312) LYMPHOCYTES ABSOLUTE COUNT (BEAKER) (test 1.03 K/ L 1.32-3.57 jydt=318) MONOCYTES ABSOLUTE COUNT (BEAKER) (test 0.59 K/ L 0.30-0.82 nojf=334) EOSINOPHILS ABSOLUTE COUNT (BEAKER) (test 0.60 K/ L 0.04-0.54 jxjz=220) BASOPHILS ABSOLUTE COUNT (BEAKER) (test 0.08 K/ L 0.01-0.08 kejk=935) IMMATURE GRANULOCYTES-RELATIVE PERCENT (BEAKER) 0 % 0-1 (test ndre=1262) POCT-GLUCOSE [id number] 23:38:00 Test Item Value Reference Range Comments POC-GLUCOSE METER (BEAKER) 99 mg/dL 70-110 TESTED AT [facility] [address] [facility] (test udmb=4539) [facility] [address] [id number] 12:02:00 Test Item Value Reference Range Comments THYROID STIMULATING HORMONE (BEAKER) (test 3.60 uIU/mL 0.35-4.94 fssg=166) BASIC METABOLIC [id number] 10:05:00 Test Item Value Reference Range Comments SODIUM (BEAKER) (test 137 meq/L 136-145 umpu=677) POTASSIUM (BEAKER) (test 4.8 meq/L 3.5-5.1 dsku=398) CHLORIDE (BEAKER) (test 97 meq/L 98-107 rlyh=216) CO2 (BEAKER) (test 26 meq/L 22-29 vjii=706) BLOOD UREA NITROGEN 29 mg/dL 7-21 (BEAKER) (test yxdz=758) CREATININE (BEAKER) (test 5.65 mg/dL 0.57-1.25 fqvj=336) GLUCOSE RANDOM (BEAKER) 194 mg/dL 70-105 (test ioxx=553) CALCIUM (BEAKER) (test 9.3 mg/dL 8.4-10.2 vmgg=462) EGFR (BEAKER) (test 11 mL/min/1.73 sq m ESTIMATED GFR IS NOT yzrg=4222) ACCURATE CREATININE CLEARANCE IN PREDICTING GLOMERULAR FILTRATION RATE. ESTIMATED GFR IS NOT APPLICABLE FOR DIALYSIS PATIENTS. B-TYPE NATRIURETIC FACTOR (BNP)2017-02-23 09:58:00 Test Item Value Reference Range Comments B-TYPE NATRIURETIC PEPTIDE (BEAKER) (test 875 pg/mL 0-100 pkwj=296) LIPID [id number] 09:55:00 Test Item Value Reference Range Comments TRIGLYCERIDES (BEAKER) (test dket=731) 102 mg/dL CHOLESTEROL (BEAKER) (test yyua=425) 166 mg/dL HDL CHOLESTEROL (BEAKER) (test lxib=070) 55 mg/dL LDL CHOLESTEROL CALCULATED (BEAKER) (test 91 mg/dL uzls=968) Triglyceride Reference Range: Low Risk <150 Borderline 150- 199 High Risk 200-499 Very High Risk >=500Cholesterol Reference Range: Low Risk <200 Borderline 200-239 High Risk > 240HDL Cholesterol Reference Range: Low Risk >=60 High Risk <40LDL Cholesterol Reference Range: Optimal <100 Near Optimal 100-129 Borderline 130-159 High 160-189 Very High >=190HEPATIC FUNCTION [id number] 09:55:00 Test Item Value Reference Range Comments TOTAL PROTEIN (BEAKER) (test jxib=257) 7.8 gm/dL 6.0-8.3 ALBUMIN (BEAKER) (test velm=2228) 3.9 g/dL 3.5-5.0 BILIRUBIN TOTAL (BEAKER) (test losm=803) 0.6 mg/dL 0.2-1.2 BILIRUBIN DIRECT (BEAKER) (test eklo=426) 0.2 mg/dL 0.1-0.5 ALKALINE PHOSPHATASE (BEAKER) (test oyoh=540) 112 U/L 40-150 AST (SGOT) (BEAKER) (test jrjr=357) 12 U/L 5-34 ALT (SGPT) (BEAKER) (test zpfy=569) 8 U/L 6-55 CBC W/PLT COUNT & AUTO [id number] 09:04:00 Test Item Value Reference Range Comments WHITE BLOOD CELL COUNT (BEAKER) (test hcag=405) 8.7 K/ L 3.5-10.5 RED BLOOD CELL COUNT (BEAKER) (test ewhm=429) 4.15 M/ L 4.63-6.08 HEMOGLOBIN (BEAKER) (test sidu=839) 11.7 GM/DL 13.7-17.5 HEMATOCRIT (BEAKER) (test ucss=893) 35.8 % 40.1-51.0 MEAN CORPUSCULAR VOLUME (BEAKER) (test fwts=647) 86.3 fL 79.0-92.2 MEAN CORPUSCULAR HEMOGLOBIN (BEAKER) (test 28.2 pg 25.7-32.2 ujjp=791) MEAN CORPUSCULAR HEMOGLOBIN CONC (BEAKER) (test 32.7 GM/DL 32.3-36.5 hojq=955) RED CELL DISTRIBUTION WIDTH (BEAKER) (test 13.2 % 11.6-14.4 vuru=665) PLATELET COUNT (BEAKER) (test wwhe=899) 174 K/CU MM 150-450 MEAN PLATELET VOLUME (BEAKER) (test qwix=063) 12.4 fL 9.4-12.4 NUCLEATED RED BLOOD CELLS (BEAKER) (test 0 /100 WBC 0-0 scyp=201) NEUTROPHILS RELATIVE PERCENT (BEAKER) (test 65 % citc=139) LYMPHOCYTES RELATIVE PERCENT (BEAKER) (test 21 % menx=492) MONOCYTES RELATIVE PERCENT (BEAKER) (test 9 % mqrx=446) EOSINOPHILS RELATIVE PERCENT (BEAKER) (test 4 % jxkc=222) BASOPHILS RELATIVE PERCENT (BEAKER) (test 1 % auyf=923) NEUTROPHILS ABSOLUTE COUNT (BEAKER) (test 5.66 K/ L 1.78-5.38 htvs=231) LYMPHOCYTES ABSOLUTE COUNT (BEAKER) (test 1.78 K/ L 1.32-3.57 ujrc=546) MONOCYTES ABSOLUTE COUNT (BEAKER) (test 0.80 K/ L 0.30-0.82 mslo=950) EOSINOPHILS ABSOLUTE COUNT (BEAKER) (test 0.30 K/ L 0.04-0.54 pvcq=820) BASOPHILS ABSOLUTE COUNT (BEAKER) (test 0.09 K/ L 0.01-0.08 rlpl=216) IMMATURE GRANULOCYTES-RELATIVE PERCENT (BEAKER) 1 % 0-1 (test yipy=3217) HLA [id number] 15:01:00 Test Item Value Reference Range Comments HLA RESULT (BEAKER) (test tfwv=2141) See Scanned Report HLA-A AG1 (BEAKER) (test csyt=1234) HLA-A AG2 (BEAKER) (test swul=8918) HLA-B AG1 (BEAKER) (test htlz=4877) HLA-B AG2 (BEAKER) (test enjw=0786) HLA-C AG1 (BEAKER) (test wref=6267) HLA-C AG2 (BEAKER) (test klbm=1881) HLA-DR AG1 (BEAKER) (test zijq=8207) HLA-DR AG2 (BEAKER) (test kkth=0767) HLA-DQ AG1 (BEAKER) (test tcvv=2682) HLA-DQ AG2 (BEAKER) (test yxkg=1743) HLA-DRW (BEAKER) (test ddym=2774) FLOW PRA CLASS I AND [id number] 08:31:00 Test Item Value Reference Range Comments DATE OF SERUM (BEAKER) (test rjlb=8957) [id number] SERUM # (CASIMIROAKER) (test docj=2963) [id number] FLOW PRA CLASS I AND II (test stpb=1384) See Scanned Report VARICELLA ZOSTER ANTIBODY, [id number] 10:13:00 Test Item Value Reference Range Comments VARICELLA ZOSTER IGG (AL) (BEAKER) (test rbfs=8133) 3.0 Al VARICELLA ZOSTER RESULT INTERPRETATIONS: <=0.8 Al Nonreactive: Presumed non-immune to VZV 0.9-1.0 Al Equivocal >=1.1 Al Reactive: Presumed immune to VZVCYTOMEGALOVIRUS ANTIBODY, [id number] 10:04:00 Test Item Value Reference Range Comments CYTOMEGALOVIRUS IGG ANTIBODY (BEAKER) (test Negative zruu=563) CYTOMEGALOVIRUS ANTIBODY, [id number] 10:04:00 Test Item Value Reference Range Comments CYTOMEGALOVIRUS IGM ANTIBODY (BEAKER) (test Negative aapw=752) EBV-VCA ANTIBODY, [id number] 10:04:00 Test Item Value Reference Range Comments DELFIN-BOB VCA IGG (BEAKER) (test ysqc=723) Positive EBV-VCA ANTIBODY, [id number] 10:04:00 Test Item Value Reference Range Comments DELFIN-BOB VCA IGM (BEAKER) (test kmws=505) Negative URINE [id number] 13:00:00 Test Item Value Reference Range Comments CULTURE (BEAKER) (test kmyh=2654) No growth [id number] 06:05:00 Test Item Value Reference Range Comments RPR SCREEN (BEAKER) (test ydgv=675) Nonreactive Nonreactive HEMOGLOBIN [id number] 14:45:00 Test Item Value Reference Range Comments HEMOGLOBIN A1C (BEAKER) (test jequ=605) 7.9 % 4.3-6.1 URINALYSIS W/ [id number] 11:34:00 Test Item Value Reference Range Comments COLOR (BEAKER) (test jlik=014) Yellow CLARITY (BEAKER) (test dcjt=383) Clear SPECIFIC GRAVITY UA (BEAKER) (test qiye=192) 1.017 1.001-1.035 PH UA (BEAKER) (test nhsx=887) 8.5 5.0-8.0 PROTEIN UA (BEAKER) (test knnc=960) >600 mg/dL Negative GLUCOSE UA (BEAKER) (test pdxu=003) 200 mg/dL Negative KETONES UA (BEAKER) (test pfqf=232) Negative Negative BILIRUBIN UA (BEAKER) (test hiww=680) Negative Negative BLOOD UA (BEAKER) (test cfoq=975) Small Negative NITRITE UA (BEAKER) (test uqem=740) Negative Negative LEUKOCYTE ESTERASE UA (BEAKER) (test yjnq=486) Negative Negative UROBILINOGEN UA (BEAKER) (test unnh=818) 0.2 mg/dL 0.2-1.0 RBC UA (BEAKER) (test zjtk=128) 21 /HPF WBC UA (BEAKER) (test phdc=334) 2 /HPF HYALINE CASTS (BEAKER) (test qqak=882) 5 /LPF SOURCE(BEAKER) (test zeds=3105) HEPATITIS B SURFACE [id number] 11:03:00 Test Item Value Reference Range Comments HEPATITIS B SURFACE ANTIGEN (2) (BEAKER) (test Nonreactive Nonreactive avnx=9582) HEPATITIS B SURFACE [id number] 11:03:00 Test Item Value Reference Range Comments HEPATITIS B SURFACE ANTIBODY (BEAKER) (test 78.1 mIU/mL <8.0 nmqy=078) HEPATITIS B CORE ANTIBODY, [id number] 11:03:00 Test Item Value Reference Range Comments HEPATITIS B CORE IGM ANTIBODY (BEAKER) (test Nonreactive Nonreactive lrvg=027) HEPATITIS C [id number] 11:03:00 Test Item Value Reference Range Comments HEPATITIS C ANTIBODY (BEAKER) (test jovu=404) Nonreactive Nonreactive HIV-1 ANTIGEN WITH HIV-1/2 [id number] 11:03:00 Test Item Value Reference Range Comments HIV-1 ANTIGEN WITH HIV 1\\T\\2 ANTIBODY (2) Nonreactive Nonreactive (BEAKER) (test glwm=8194) COMPREHENSIVE METABOLIC [id number] 10:45:00 Test Item Value Reference Range Comments TOTAL PROTEIN (BEAKER) 7.3 gm/dL 6.0-8.3 (test tqgo=644) ALBUMIN (BEAKER) (test 3.8 g/dL 3.5-5.0 tbrt=4050) ALKALINE PHOSPHATASE 119 U/L 40-150 (BEAKER) (test keid=862) BILIRUBIN TOTAL (BEAKER) 0.5 mg/dL 0.2-1.2 (test kyng=018) SODIUM (BEAKER) (test 140 meq/L 136-145 xzul=565) POTASSIUM (BEAKER) (test 4.1 meq/L 3.5-5.1 olum=613) CHLORIDE (BEAKER) (test 98 meq/L 98-107 pqpe=572) CO2 (BEAKER) (test 34 meq/L 22-29 wgdk=335) BLOOD UREA NITROGEN 17 mg/dL 7-21 (BEAKER) (test kzzz=309) CREATININE (BEAKER) (test 5.48 mg/dL 0.57-1.25 rehg=188) GLUCOSE RANDOM (BEAKER) 102 mg/dL 70-105 (test bfvi=208) CALCIUM (BEAKER) (test 9.4 mg/dL 8.4-10.2 pmtg=568) AST (SGOT) (BEAKER) (test 13 U/L 5-34 onez=887) ALT (SGPT) (BEAKER) (test 8 U/L 6-55 kzdx=121) EGFR (BEAKER) (test 12 mL/min/1.73 sq m ESTIMATED GFR IS NOT ddvv=0202) ACCURATE CREATININE CLEARANCE IN PREDICTING GLOMERULAR FILTRATION RATE. ESTIMATED GFR IS NOT APPLICABLE FOR DIALYSIS PATIENTS. PTH, [id number] 10:33:00 Test Item Value Reference Range Comments PARATHYROID HORMONE INTACT (BEAKER) (test 335.9 pg/mL 8.5-72.5 dxmj=098) URIC [id number] 10:27:00 Test Item Value Reference Range Comments URIC ACID (BEAKER) (test myti=682) 3.8 mg/dL 2.6-7.2 [id number] 10:27:00 Test Item Value Reference Range Comments PHOSPHORUS (BEAKER) (test tquz=465) 2.9 mg/dL 2.3-4.7 LIPID [id number] 10:27:00 Test Item Value Reference Range Comments TRIGLYCERIDES (BEAKER) (test doef=765) 79 mg/dL CHOLESTEROL (BEAKER) (test sekh=279) 156 mg/dL HDL CHOLESTEROL (BEAKER) (test hofm=457) 49 mg/dL LDL CHOLESTEROL CALCULATED (BEAKER) (test 91 mg/dL kgia=603) Triglyceride Reference Range: Low Risk <150 Borderline [...] Range Comments GAMMA GLUTAMYL TRANSFERASE (BEAKER) (test back=155) 32 U/L 9-64 LACTATE DEHYDROGENASE (LDH)[id number] 10:27:00 Test Item Value Reference Range Comments LACTATE DEHYDROGENASE (BEAKER) (test ssus=190) 252 U/L 125-220 [id number] 10:11:00 Test Item Value Reference Range Comments PROTIME (BEAKER) (test finx=026) 14.3 seconds 11.7-14.7 INR (BEAKER) (test xzst=949) 1.1 <=5.9 PARTIAL THROMBOPLASTIN TIME (BEAKER) (test 32.2 seconds 22.5-36.0 fary=729) RECOMMENDED COUMADIN/WARFARIN INR THERAPY RANGESSTANDARD DOSE: 2.0 - 3.0 Includes: PROPHYLAXIS forvenous thrombosis, systemic embolization; TREATMENT for venous thrombosis and/or pulmonary embolus.HIGH RISK: Target INR is 2.5-3.5 for patients with mechanical heart valves.CBC W/PLT COUNT & AUTO [id number] 10:05:00 Test Item Value Reference Range Comments WHITE BLOOD CELL COUNT (BEAKER) (test dpgn=130) 7.0 K/ L 3.5-10.5 RED BLOOD CELL COUNT (BEAKER) (test jvrp=173) 4.06 M/ L 4.63-6.08 HEMOGLOBIN (BEAKER) (test fjsq=988) 11.5 GM/DL 13.7-17.5 HEMATOCRIT (BEAKER) (test poft=140) 36.6 % 40.1-51.0 MEAN CORPUSCULAR VOLUME (BEAKER) (test fanp=621) 90.1 fL 79.0-92.2 MEAN CORPUSCULAR HEMOGLOBIN (BEAKER) (test 28.3 pg 25.7-32.2 elav=246) MEAN CORPUSCULAR HEMOGLOBIN CONC (BEAKER) (test 31.4 GM/DL 32.3-36.5 hkvj=643) RED CELL DISTRIBUTION WIDTH (BEAKER) (test 15.1 % 11.6-14.4 estz=528) PLATELET COUNT (BEAKER) (test brif=122) 222 K/CU MM 150-450 MEAN PLATELET VOLUME (BEAKER) (test lqrm=591) 12.7 fL 9.4-12.4 NUCLEATED RED BLOOD CELLS (BEAKER) (test 0 /100 WBC 0-0 qxog=060) NEUTROPHILS RELATIVE PERCENT (BEAKER) (test 61 % csyv=164) LYMPHOCYTES RELATIVE PERCENT (BEAKER) (test 24 % trrr=546) MONOCYTES RELATIVE PERCENT (BEAKER) (test 9 % aiym=366) EOSINOPHILS RELATIVE PERCENT (BEAKER) (test 6 % avps=565) BASOPHILS RELATIVE PERCENT (BEAKER) (test 1 % dmwr=783) NEUTROPHILS ABSOLUTE COUNT (BEAKER) (test 4.23 K/ L 1.78-5.38 ayti=833) LYMPHOCYTES ABSOLUTE COUNT (BEAKER) (test 1.66 K/ L 1.32-3.57 bnmq=991) MONOCYTES ABSOLUTE COUNT (BEAKER) (test 0.62 K/ L 0.30-0.82 gpoh=266) EOSINOPHILS ABSOLUTE COUNT (BEAKER) (test 0.40 K/ L 0.04-0.54 gnsq=494) BASOPHILS ABSOLUTE COUNT (BEAKER) (test 0.08 K/ L 0.01-0.08 ujwo=316) IMMATURE GRANULOCYTES-RELATIVE PERCENT (BEAKER) 0 % 0-1 (test tkad=8018) OCCULT BLOOD, [id number] 23:03:00 Test Item Value Reference Range Comments FECAL OCCULT BLOOD (BEAKER) (test webk=134) Negative Negative OCCULT BLOOD, [id number] 23:03:00 Test Item Value Reference Range Comments FECAL OCCULT BLOOD (BEAKER) (test rcpw=883) Negative Negative PET, CARDIAC PERFUSION MULTIPLE STUDIES, REST AND [id number] 14:10: 00Reason for Exam:->ESRD/KIDNEY TRANSPLANT EVALFINAL REPORT PROCEDURE: Rest/Stress MYOCARDIAL PERFUSION PET with regadenoson\\ XA9\\ CPT CODE: [id number] INDICATION: End-stage renal disease, preoperative evaluation for [...] Normal extracardiac tracer distribution. 6. No previous [facility] study for comparison. NONINVASIVE RISK STRATIFICATION: The above findings are considered low risk(<1% annual mortality rate) based on the following criterion:- Normal or small myocardial perfusion defect at rest or with stress( JACC. 2012;59(9):857-81.) Signed: Nicolas Kimbleort Verified Date/Time: 14:10:21 Reading Location: [address] P327[address] [facility] [place], CYSTOGRAM, CINE OR VIDEO, [id number] 13:04:00Reason for Exam:->kidney transplant evaluationFINAL REPORT VCUG: [...] MDReport Verified Date/Time: 10/11/2016 13:04:21 Reading Location: [facility] B1 [id number] Ortho Consult Reading Room Electronically signed by: KEVIN ALMANZA M.D. on 2016 01:04 PMVARICELLA ZOSTER ANTIBODY, [id number] 16:40:00 Test Item Value Reference Range Comments VARICELLA ZOSTER IGG (AL) (CELESTINA) (test ksql=9101) 2.8 Al VARICELLA ZOSTER RESULT INTERPRETATIONS: <=0.8 Al Nonreactive: Presumed non-immune to VZV 0.9-1.0 Al Equivocal >=1.1 Al Reactive: Presumed immune to VZVCYTOMEGALOVIRUS ANTIBODY, [id number] 06:52:00 Test Item Value Reference Range Comments CYTOMEGALOVIRUS IGG ANTIBODY (BEAKER) (test Negative wtmu=942) CYTOMEGALOVIRUS ANTIBODY, [id number] 06:52:00 Test Item Value Reference Range Comments CYTOMEGALOVIRUS IGM ANTIBODY (BEAKER) (test Negative lywx=715) EBV-VCA ANTIBODY, [id number] 06:52:00 Test Item Value Reference Range Comments DELFIN-BOB VCA IGG (BEAKER) (test przm=838) Positive EBV-VCA ANTIBODY, [id number] 06:52:00 Test Item Value Reference Range Comments DELFIN-BOB VCA IGM (BEAKER) (test cjwq=623) Negative URINE [id number] 12:59:00 Test Item Value Reference Range Comments CULTURE (BEAKER) (test dbbw=0925) No growth HEPATITIS B SURFACE [id number] 13:18:00 Test Item Value Reference Range Comments HEPATITIS B SURFACE ANTIGEN Reactive Nonreactive Reactive Hepatitis B Surface (2) (BEAKER) (test Antigen result; Confirmed by qgka=5250) Hepatitis B Surface Antigen Neutralization testing. [id number] 11:51:00 Test Item Value Reference Range Comments RPR SCREEN (BEAKER) (test aetl=903) Nonreactive Nonreactive HEMOGLOBIN [id number] 11:05:00 Test Item Value Reference Range Comments HEMOGLOBIN A1C (BEAKER) (test rakx=243) 8.2 % 4.3-6.1 HEPATITIS B SURFACE [id number] 10:37:00 Test Item Value Reference Range Comments HEPATITIS B SURFACE ANTIBODY (BEAKER) (test < mIU/mL <8.0 zsij=743) PTH, [id number] 10:24:00 Test Item Value Reference Range Comments PARATHYROID HORMONE INTACT (BEAKER) (test 424.7 pg/mL 8.5-72.5 ngav=017) Effective 12/23/2013: Reference Range ChangeNew: 8.5-72.5 Previous: 15.0- 90.0URINALYSIS W/ [id number] 10:19:00 Test Item Value Reference Range Comments COLOR (BEAKER) (test phqd=326) Yellow CLARITY (BEAKER) (test hnkw=577) Clear SPECIFIC GRAVITY UA (BEAKER) (test jzra=204) 1.013 1.001-1.035 PH UA (BEAKER) (test jjiu=072) 7.5 5.0-8.0 PROTEIN UA (BEAKER) (test ptir=749) 600 mg/dL Negative GLUCOSE UA (BEAKER) (test wsxj=430) >1000 mg/dL Negative KETONES UA (BEAKER) (test zjvf=115) Negative Negative BILIRUBIN UA (BEAKER) (test nzao=114) Negative Negative BLOOD UA (BEAKER) (test vdwh=778) Moderate Negative NITRITE UA (BEAKER) (test rgyx=991) Negative Negative LEUKOCYTE ESTERASE UA (BEAKER) (test wbar=897) Negative Negative UROBILINOGEN UA (BEAKER) (test vhcs=078) 0.2 mg/dL 0.2-1.0 RBC UA (BEAKER) (test pldk=275) 9 /HPF WBC UA (BEAKER) (test nmgp=320) 3 /HPF HYALINE CASTS (BEAKER) (test znkz=435) 2 /LPF SOURCE(BEAKER) (test ucqu=7078) HEPATITIS B CORE ANTIBODY, [id number] 09:46:00 Test Item Value Reference Range Comments HEPATITIS B CORE IGM ANTIBODY (BEAKER) (test Nonreactive Nonreactive shsc=988) HEPATITIS C [id number] 09:46:00 Test Item Value Reference Range Comments HEPATITIS C ANTIBODY (BEAKER) (test wuai=114) Nonreactive Nonreactive HIV-1 ANTIGEN WITH HIV-1/2 [id number] 09:46:00 Test Item Value Reference Range Comments HIV-1 ANTIGEN WITH HIV 1\\T\\2 ANTIBODY (2) Nonreactive Nonreactive (BEAKER) (test nuhp=4148) COMPREHENSIVE METABOLIC [id number] 09:33:00 Test Item Value Reference Range Comments TOTAL PROTEIN (BEAKER) 6.5 gm/dL 6.0-8.3 (test ywds=133) ALBUMIN (BEAKER) (test 3.4 g/dL 3.5-5.0 mkof=1057) ALKALINE PHOSPHATASE 97 U/L 40-150 (BEAKER) (test cgtc=120) BILIRUBIN TOTAL (BEAKER) 0.5 mg/dL 0.2-1.2 (test uvbn=314) SODIUM (BEAKER) (test 136 meq/L 136-145 afkn=767) POTASSIUM (BEAKER) (test 3.1 meq/L 3.5-5.1 vpts=291) CHLORIDE (BEAKER) (test 97 meq/L 98-107 udys=381) CO2 (BEAKER) (test 28 meq/L 22-29 cipj=163) BLOOD UREA NITROGEN 31 mg/dL 7-21 (BEAKER) (test ukfd=865) CREATININE (BEAKER) (test 5.55 mg/dL 0.57-1.25 pueh=051) GLUCOSE RANDOM (BEAKER) 226 mg/dL 70-105 (test qrhv=641) CALCIUM (BEAKER) (test 8.5 mg/dL 8.4-10.2 jzsf=202) AST (SGOT) (BEAKER) (test 14 U/L 5-34 rpcq=554) ALT (SGPT) (BEAKER) (test 8 U/L 6-55 mvfw=904) EGFR (BEAKER) (test 11 mL/min/1.73 sq m ESTIMATED GFR IS NOT tkzg=2066) ACCURATE CREATININE CLEARANCE IN PREDICTING GLOMERULAR FILTRATION RATE. ESTIMATED GFR IS NOT APPLICABLE FOR DIALYSIS PATIENTS. [id number] 09:30:00 Test Item Value Reference Range Comments PROTIME (BEAKER) (test lyvx=218) 13.7 seconds 11.7-14.7 INR (BEAKER) (test smvo=381) 1.1 <=5.9 PARTIAL THROMBOPLASTIN TIME (BEAKER) (test 28.7 seconds 22.5-36.0 kigx=491) RECOMMENDED COUMADIN/WARFARIN INR THERAPY RANGESSTANDARD DOSE: 2.0 - 3.0 Includes: PROPHYLAXIS forvenous thrombosis, systemic embolization; TREATMENT for venous thrombosis and/or pulmonary embolus.HIGH RISK: Target INR is 2.5-3.5 for patients with mechanical heart valves.URIC [id number] 09:27:00 Test Item Value Reference Range Comments URIC ACID (BEAKER) (test nlmo=382) 3.9 mg/dL 2.6-7.2 [id number] 09:27:00 Test Item Value Reference Range Comments PHOSPHORUS (BEAKER) (test ndso=820) 3.9 mg/dL 2.3-4.7 GAMMA GLUTAMYL TRANSFERASE (GGT)2016-08-16 09:27:00 Test Item Value Reference Range Comments GAMMA GLUTAMYL TRANSFERASE (BEAKER) (test clnl=793) 34 U/L 9-64 LACTATE DEHYDROGENASE (LDH)2016-08-16 09:27:00 Test Item Value Reference Range Comments LACTATE DEHYDROGENASE (BEAKER) (test qxnu=026) 237 U/L 125-220 CBC W/PLT COUNT & AUTO [id number] 09:23:00 Test Item Value Reference Range Comments WHITE BLOOD CELL COUNT (BEAKER) (test hkeq=708) 7.3 K/ L 4.0-10.0 RED BLOOD CELL COUNT (BEAKER) (test dcll=919) 4.49 M/ L 4.20-5.80 HEMOGLOBIN (BEAKER) (test umaz=830) 13.8 GM/DL 13.0-16.8 HEMATOCRIT (BEAKER) (test bpfp=887) 41.0 % 40.0-50.0 MEAN CORPUSCULAR VOLUME (BEAKER) (test aiic=125) 91.3 fL 82.0-98.0 MEAN CORPUSCULAR HEMOGLOBIN (BEAKER) (test 30.7 pg 27.0-33.0 zalk=191) MEAN CORPUSCULAR HEMOGLOBIN CONC (BEAKER) (test 33.7 GM/DL 32.0-36.0 xirn=693) RED CELL DISTRIBUTION WIDTH (BEAKER) (test 15.5 % 10.3-14.2 tbqn=137) PLATELET COUNT (BEAKER) (test nicj=340) 169 K/CU MM 150-430 MEAN PLATELET VOLUME (BEAKER) (test vgkj=053) 10.9 fL 6.5-10.5 NUCLEATED RED BLOOD CELLS (BEAKER) (test 0 /100 WBC 0-0 kbaf=288) NEUTROPHILS RELATIVE PERCENT (BEAKER) (test 64 % eero=727) LYMPHOCYTES RELATIVE PERCENT (BEAKER) (test 23 % snjq=873) MONOCYTES RELATIVE PERCENT (BEAKER) (test 8 % nslx=995) EOSINOPHILS RELATIVE PERCENT (BEAKER) (test 4 % vwmi=876) BASOPHILS RELATIVE PERCENT (BEAKER) (test 1 % dwhf=652) NEUTROPHILS ABSOLUTE COUNT (BEAKER) (test 4.68 K/ L 1.80-8.00 tsym=706) LYMPHOCYTES ABSOLUTE COUNT (BEAKER) (test 1.66 K/ L 1.48-4.50 bdry=384) MONOCYTES ABSOLUTE COUNT (BEAKER) (test 0.57 K/ L 0.00-1.30 hxrw=479) EOSINOPHILS ABSOLUTE COUNT (BEAKER) (test 0.30 K/ L 0.00-0.50 buhw=355) BASOPHILS ABSOLUTE COUNT (BEAKER) (test 0.06 K/ L 0.00-0.20 yeqp=452) [id number] 10:56:00 Test Item Value Reference Range Comments POC-POTASSIUM (BEAKER) (test 4.4 meq/L 3.6-5.5 TESTED AT [address] pjvg=1223) [place] [address] POCT-GLUCOSE [id number] 10:52:00 Test Item Value Reference Range Comments POC-GLUCOSE METER (BEAKER) 223 mg/dL 70-110 TESTED AT [address] (test ryii=3477) [place] [address] BUN AND [id number] 14:13:00 Test Item Value Reference Range Comments BLOOD UREA NITROGEN 36 mg/dL 7-21 (BEAKER) (test ngsw=389) CREATININE (BEAKER) (test 4.50 mg/dL 0.57-1.25 lkxa=515) EGFR (BEAKER) (test 15 mL/min/1.73 sq m ESTIMATED GFR IS NOT tapu=3349) ACCURATE CREATININE CLEARANCE IN PREDICTING GLOMERULAR FILTRATION RATE. ESTIMATED GFR IS NOT APPLICABLE FOR DIALYSIS PATIENTS. [id number] 14:03:00 Test Item Value Reference Range Comments SODIUM (BEAKER) (test ojrt=765) 139 meq/L 136-145 POTASSIUM (BEAKER) (test qwcn=265) 4.2 meq/L 3.5-5.1 CHLORIDE (BEAKER) (test sufz=236) 104 meq/L 98-107 CO2 (BEAKER) (test xlxo=764) 27 meq/L 22-29 [id number] 14:00:00 Test Item Value Reference Range Comments GLUCOSE RANDOM (BEAKER) (test lfwc=587) 77 mg/dL 70-105 Effective 12/23/2013: Reference Range Change-Adult onlyNew: 70-105 Previous : [id number] 13:51:00 Test Item Value Reference Range Comments HEMOGLOBIN (BEAKER) (test luse=320) 9.9 GM/DL 13.0-16.8 PLATELET [id number] 13:44:00 Test Item Value Reference Range Comments PLATELET COUNT (BEAKER) (test zdfc=637) 131 K/CU MM 150-430 POCT-GLUCOSE [id number] 09:51:00 Test Item Value Reference Range Comments POC-GLUCOSE METER (BEAKER) 210 mg/dL 70-110 TESTED AT [address] (test bxjw=0798) [place] [address] POCT-GLUCOSE [id number] 07:49:00 Test Item Value Reference Range Comments POC-GLUCOSE METER (BEAKER) 214 mg/dL 70-110 TESTED AT [address] (test egkg=1346) [place] [address] [id number] 07:19:00 Test Item Value Reference Range Comments POC-POTASSIUM (BEAKER) (test 5.1 meq/L 3.6-5.5 TESTED AT [address] lkml=6951) [place] [address] BUN AND [id number] 12:34:00 Test Item Value Reference Range Comments BLOOD UREA NITROGEN 70 mg/dL 7-21 (BEAKER) (test pimj=106) CREATININE (BEAKER) (test 8.17 mg/dL 0.57-1.25 bzgy=953) EGFR (BEAKER) (test 7 mL/min/1.73 sq m ESTIMATED GFR IS NOT qkjx=5738) ACCURATE CREATININE CLEARANCE IN PREDICTING GLOMERULAR FILTRATION RATE. ESTIMATED GFR IS NOT APPLICABLE FOR DIALYSIS PATIENTS. [id number] 12:34:00 Test Item Value Reference Range Comments SODIUM (BEAKER) (test ijjh=930) 137 meq/L 136-145 POTASSIUM (BEAKER) (test ihoe=236) 5.1 meq/L 3.5-5.1 CHLORIDE (BEAKER) (test hzsk=325) 111 meq/L 98-107 CO2 (BEAKER) (test yxef=373) 15 meq/L 22-29 [id number] 12:29:00 Test Item Value Reference Range Comments GLUCOSE RANDOM (BEAKER) (test vxst=476) 186 mg/dL 70-105 Effective 12/23/2013: Reference Range Change-Adult onlyNew: 70-105 Previous : [id number] 12:21:00 Test Item Value Reference Range Comments HEMOGLOBIN (BEAKER) (test yfvz=882) 9.3 GM/DL 13.0-16.8 PLATELET [id number] 12:19:00 Test Item Value Reference Range Comments PLATELET COUNT (BEAKER) (test hzfi=468) 254 K/CU MM 150-430
--- OUTSIDE RECORDS SUMMARY | 2018-10-26 06:43 | XMS REPORT | Summary of Care ---
:1975 Author Organization [facility] [place] [address] Care Team Providers Name Role Phone Krystyna Barney MD Primary Care Provider Reason for Visit Reason Comments Cardiomyopathy Encounter Details Date Type Department Care Team Description 09/16/2018 Office Visit [facility] Jazmyne Aceves MD Cardiomyopathy Cardiology [address] [facility] [address] [place] [address] [place] [address] [phone] Allergies No Known Allergiesdocumented as of this encounter (statuses as of 10/01/2018) Medications Medication Sig Dispensed Refills Start Date End Date Status Insulin NPH Inject into 0 Active Isophane & Regular the skin. (NOVOLIN 70/30 SC) calcium acetate Take 667 mg 0 Active (PHOSLO) 667 MG by mouth 3 capsule times daily (with meals). mirtazapine Take 7.5 mg 0 Active (REMERON) 15 MG by mouth tablet nightly. pravastatin Take 40 mg by 0 Active (PRAVACHOL) 40 MG mouth daily. tablet promethazine Take 12.5 mg 0 Active (PHENERGAN) 12.5 MG by mouth tablet every 6 hours as needed for Nausea. ondansetron Take 1 Tab by 0 06/03/2018 Active (ZOFRAN) 4 MG mouth every 8 tablet hours as needed. linaGLIPtin Take 1 Tab by 0 Active (TRADJENTA) 5 MG mouth daily. TABS carvedilol (COREG) Take 1 Tab by 180 Tab 3 09/16/2018 Active 12.5 MG tablet mouth two times daily. amlodipine Take 10 mg by 0 09/16/2018 Discontinued (NORVASC) 10 MG mouth daily. tablet atorvastatin Take 40 mg by 0 09/16/2018 Discontinued (LIPITOR) 40 MG mouth daily. tablet carvedilol (COREG) Take 6.25 mg 0 09/16/2018 Discontinued 6.25 MG tablet by mouth 2 times daily (with meals). documented as of this encounter (statuses as of 10/01/2018) Active Problems Problem Noted Date ASD (atrial septal defect), ostium secundum 12/18/2016 documented as of this encounter (statuses as of 10/01/2018) Social History Tobacco Use Types Packs/Day Years Used Date Former Smoker Smokeless Tobacco: Never Used Alcohol Use Drinks/Week oz/Week Comments No Sex Assigned at Date Recorded Not on file Job Start Date Occupation Industry Not on file Not on file Not on file Travel History Travel Start Travel End No recent travel history available. documented as of this encounter Last Filed Vital Signs Vital Sign Reading Time Taken Comments Blood Pressure 143/88 09/16/2018 3:35 PM CDT Pulse 71 09/16/2018 3:35 PM CDT Temperature - - Respiratory Rate 16 09/16/2018 3:35 PM CDT Oxygen Saturation 99% 09/16/2018 3:35 PM CDT Inhaled Oxygen Concentration - - Weight 39.9 kg (88 lb) 09/16/2018 3:35 PM CDT Height 160 cm (5' 3") 09/16/2018 3:35 PM CDT Body Mass Index 15.59 09/16/2018 3:35 PM CDT documented in this encounter Progress Notes Jazmyne Aceves MD - 09/16/2018 3:40 PM CDT Jazmyne Aceves MD Section of Cardiology [address] [facility] [address] [place] [address] email: [email or web address] Date: September 16, 2018 Patient Name: Vance Barrera Patient Date of : 1975 Chief Complaint: Pre-renal transplantation History: History of Present Illness: Vance Barrera is a 43 y.o. male with a history of ESRD on HD and type 1 diabetes mellitus whopresents for cardiac evaluation. He is undergoing evaluation for renal transplantation. Mr Barrera has ESRD likely secondary to diabetes mellitus. He has been on insulin therapy since hisyouth. He has no significant cardiac complaints and denies chest pain, dyspnea on exertion, palpitations, orthopnea, or syncope. He has been evaluated by Dr Tejeda. An echocardiogram in Oct-2016 demonstrated a possible ASD and therefore he was referred for further evaluation. The shunt fraction appears negligible by TTE and the RV size and function were normal. Clinic visit: 04/01/2018 After his initial visit Mr Barrera underwent a left and right heart catheterization. There was no evidence of a step-up on the catheterization and he did not have significant coronary artery disease. He has remained relatively stable since that time. Mr. Barrera denies chest pain, palpitations, syncope, dyspnea on exertion, orthopnea, paroxysmalnocturnal dysfunction, or lower extremity edema. Clinic visit: 09/16/2018 After his initial visit Mr Barrera underwent a left and right heart catheterization. There was no evidence of a step-up on the catheterization and he did not have significant coronary artery disease. He has remained relatively stable since that time. Mr. Barrera denies chest pain, palpitations, syncope, dyspnea on exertion, orthopnea, paroxysmalnocturnal dysfunction, or lower extremity edema. Current Medications: Current Outpatient Medications Medication Sig Dispense Refill calcium acetate (PHOSLO) 667 MG capsule Take 667 mg by mouth 3 times daily ( with meals). carvedilol (COREG) 6.25 MG tablet Take 6.25 mg by mouth 2 times daily (with meals). Insulin NPH Isophane & Regular (NOVOLIN 70/30 SC) Inject into the skin. linaGLIPtin (TRADJENTA) 5 MG TABS Take 1 Tab by mouth daily. mirtazapine (REMERON) 15 MG tablet Take 7.5 mg by mouth nightly. ondansetron (ZOFRAN) 4 MG tablet Take 1 Tab by mouth every 8 hours as needed. pravastatin (PRAVACHOL) 40 MG tablet Take 40 mg by mouth daily. promethazine (PHENERGAN) 12.5 MG tablet Take 12.5 mg by mouth every 6 hours as needed for Nausea. No current facility-administered medications for this visit. Allergies: No Known Allergies Past Medical History: Past Medical History: Diagnosis Date Hypertension Type 2 diabetes mellitus without complication Past Surgical History: No past surgical history on file. Social History: Social History Tobacco Use Smoking status: Former Smoker Smokeless tobacco: Never Used Substance Use Topics Alcohol use: No Family History: No family history on file. Review of Systems: A full 10-system review of systems was performed and was negative unless stated otherwise in the HPI. Examination: BP 143/88 | Pulse 71 | Resp 16 | Ht 5' 3" (1.6 m) | Wt 88 lb (39.9 kg) | SpO2 99% | BMI 15.59 kg/m General appearance alert, cooperative, no distress, appears stated age Head Normocephalic, without obvious abnormality, atraumatic Eyes conjunctivae/corneas clear. PERRL, EOM's intact. Fundi benign Neck supple, symmetrical, trachea midline, no adenopathy, thyroid: not enlarged , symmetric, no tenderness/mass/nodules, no carotid bruit and no JVD Lungs clear to auscultation bilaterally Chest wall no tenderness Heart regular rate and rhythm, S1, S2 normal, no murmur, click, rub or gallop Abdomen soft, non-tender. Bowel sounds normal. No masses, No organomegaly Extremities extremities normal, atraumatic, no cyanosis or edema Pulses 2+ and symmetric Skin Skin color, texture, turgor normal. No rashes or lesions Neurologic Normal Data: Laboratory Testing: Results for orders placed or performed in visit on 07/31/18 ECHO, COMPLETE Result Value Ref Range REPORT [facility] Echocardiography Report Pat.Name: VANCE BARRERA Pat.ID: [id number] St.Date: 07/31/2018 Refer.: JAZMYNE ACEVES Exam Time: 8:49:00 AM Study Type:Routine Echo Height: 63in Weight: 85lb BSA: 1.35 m2 Age: 6 1975,43Y Sex: MALE BP: 124/84 HR: 77 bpm Sonogrphr: Tatum Hernández RDCS, RVT Echo Event ID:[id number] [facility] Order ID: [id number] Reason for Study:Cardiac evaluation History / Clinical:ASD, ESRD Procedures:[id number],COMPL ETE ++++++++++++++++++++++++++++++++++++ SUMMARY: ++++++++++++++++++++++++++++++++++++ 1. Left ventricular chamber size (by vol index) is moderately enlarged (male - LVED vol - 90-100 ml/m2). Mild concentric LV hypertrophy. All of the LV segments are moderately hypokinetic. Estimated LVEF by qualitative assessment is moderately reduced (35-39%). Grade 3 diastolic dysfunction (markedly elevated LA pressure). 2. RV chamber size is mildly enlarged. Global RV systolic function is mildly reduced. 3. LA size is mildly enlarged. RA cavity size is normal. Suboptimal evaluation of IAS. Please consider repeat limited study with IV saline contrast if clinically indicated. 4. A trace of tricuspid regurgitation. Peak systolic PA pressure may be underestimated; partial TR signal. Estimated Peak systolic pressure is at least 55-60 mm Hg. The estimated RA pressure by IVC dynamics 5-10 mm Hg. In comparison with the prior exam on 04/05/18, no significant changes noted. ++++++++++++++++++++++++++++++++++++ FINDINGS: ++++++++++++++++++++++++++++++++++++ Rhythm/BP: Regular sinus rhythm during the exam. LV: All of the LV segments are moderately hypokinetic. Mild concentric LV hypertrophy. Left ventricular chamber size (by vol index) is moderately enlarged (male - LVED vol - 90-100 ml/m2). Estimated LVEF by qualitative assessment is moderately reduced (35-39%). Grade 3 diastolic dysfunction (markedly elevated LA pressure). LA: LA size is mildly enlarged. RV: RV chamber size is mildly enlarged. Global RV systolic function is mildly reduced. RA: RA cavity size is normal. IAS: Suboptimal evaluation of IAS. Please consider repeat limited study with IV saline contrast if clinically indicated. AV: Mild AoV cusp thickening. A trace of aortic regurgitation. Tri-leaflet Aortic Valve. MV: Moderate MV leaf let thickening. A trace of mitral regurgitation. TV: A trace of tricuspid regurgitation. Mild TV leaflet thickening. Estimated Peak systolic pressure is at least 55-60 mmHg. Peak systolic PA pressure may be underestimated; partial TR signal. PV: Mild pulmonary regurgitation. PV is not well visualized. AO: Aortic root size (Sinus of Valsalva diameter) is normal. Proximal ascending aorta size is normal. Pericard: No pericardial effusion is visualized. Systemic Veins: The inferior vena cava size is normal but does not collapse >50%. The estimated RA pressure by IVC dynamics 5-10 mmHg. Comparison: In comparison with the prior exam on 04/05/18, no significant changes noted. Quality: Technically adequate exam. ++++++++++++++++++++++++++++++++++++ MEASUREMENTS: ++++++++++++++++++++++++++++++++++++ 2D LV EF Biplane LVEDV 122 ml (65-193) LV CI 2.5 l/m/m2 LVESV 77.7 ml LV SV 44.3 ml LV EF 36.3 % (63-77) HR 75 bpm LV CO 3.3 l/min LA Sng Plane LA Vol 50.7 ml Index 37.6 ml/m2 LA LngAx 4.9 cm LA Area 17.1 cm2 (8.8-23.4) RA Sng Plane RA Vol 37.8 ml RA LngAx 3.9 cm RA Area 13.3 cm2 (8.3-19.5) LVOT LVOT 1.8 cm Parasternal Long [place] Ao Rtd 3 cm LV%fs 24 % IVSd 1.2 cm LVPWd 1.1 cm LVIDd 4.9 cm LA Ds 3.7 cm LVIDs 3.8 cm LV Wmn 1.1 cm Ascending aorta Asce Dim 3 cm Right Ventricle RV Dim 4.5 cm DOPPLER AV For Flow/Valve Asses s AV pkVel 88.8 cm/s (100-170) AVpkAcRt 9745.1 cm/s2 AV mnVel 61 cm/s AV TVI 14.4 cm AV pkPG 3.2 mmHg AV ET 236 msec AV mnPG 1.8 mmHg AV AC 79 msec (83-118) AV AC/ET 0.3 AV Area-Cont. Eq. LVOT Area 2.5 cm2 Area (TVI) 2.7 cm2 (3-5) LVOT TVI 15.2 cm LVOTpkV 97.3 cm/s AV SV 38.7 ml AV pkVel 88.8 cm/s AV TVI 14.4 cm Area (Merlin) 2.8 cm2 MV E/A Ratio MV pkE 112.6 cm/s (60-130) MV E/A 3 MV pkA 37.1 cm/s TV PA Sys Press TI merlin 338.1 cm/s RA Press 10 mmHg RV-RA PG 45.7 mmHg SysP TV 55.7 mmHg Left Ventricle LaLat Em 7 cm/s LaSep Em 4.8 cm/s LV Diastology E/Em Ratio LaLat E/Em 15.6 LaSep E/E m 23.2 Right Ventricle RaAnt Sm 8 cm/s MMODE TAPSE TAPS Dim 1.6 cm Signed 07/31/2018 10:52 AM Radha Castillo M.D. EJECTION FRACTION RESULT Result Value Ref Range Ejection Fraction 37 (A) 55 - 75 % Cardiology Studies: Electrocardiogram: Sinus Rhythm. Right atrial enlargement. Voltage criteria for LVH (S(V1)+R(V6 ) exceeds 3.50 mV). Diffuse nonspecific T-abnormality. Echocardiogram: 07/31/2018 1. Left ventricular chamber size (by vol index) is moderately enlarged (male - LVED vol - 90-100 ml/m2). Mild concentric LV hypertrophy. All of the LV segments are moderately hypokinetic. Estimated LVEF by qualitative assessment is moderately reduced (35-39%). Grade 3 diastolic dysfunction (markedly elevated LA pressure). 2. RV chamber size is mildly enlarged. Global RV systolic function is mildly reduced. 3. LA size is mildly enlarged. RA cavity size is normal. Suboptimal evaluation of IAS. Please consider repeat limited study with IV saline contrast if clinically indicated. 4. A trace of tricuspid regurgitation. Peak systolic PA pressure may be underestimated; partial TR signal. Estimated Peak systolic pressure is at least 55-60 mm Hg. The estimated RA pressure by IVC dynamics 5-10 mm Hg. Echocardiogram: (Oct-2016) A secundum type atrial septal defect (ASD) is present with L-->R flow by color Doppler with Qp:Qs1.0. Consider ROSIE for further anatomic delineation. Normal LV chamber size. LV septal thickness is mildly increased (1.2-1.4cm). LV posterior wall thickness is normal (0.6-1.1cm). Normal LV systolic function with LVEF 55-60%. Restrictive mitral fillingpattern (grade III diastolic dysfunction). Trace pericardial effusion is visualized. Large left sided pleural effusion with atelectatic lung is seen. Systolic blunting of pulmonary venous flow. RAP 5-10mmHg. The right ventricular chamber size and systolic function are within normal limits. Mildly thickened TV leaflets with mild TR. PASP 35-40mmHg + RAP. Cardiac Stress Testin Perfusion: Normal. Wall Motion: There is moderate hypokinesis of the global LV (LVEF 37%). LV Volume: Not significantly changed from rest. IMPRESSION: 1. Abnormal study. 2. Normal myocardial perfusion. 3. Abnormal LVEF of 37% with stress. 4. Normal extracardiac tracer distribution. 5. The prior study dated 10/11/2016 showed normal perfusion and normal LVEF of 54%. Compared to prior study LVEF is now reduced. Cardiac Stress Testin10/11/2016 IMAGING FINDINGS: Study quality is good. Images obtained after rest and stress injections show normal LV activity. LV and RV volumes appear normal. Gated images obtained at rest and with stressshow normal LV wall motion and thickening. LVEF at rest is 53%. LVEF at stress is 54%. IMPRESSION: 1. Normal study.2. Appropriate pharmacologic stress. 3. Normal myocardialperfusion.4. Normal resting LV function. No deterioration of function is noted with pharmacologic stress.5. Normal extracardiac tracer distribution.6. No previous [facility] study for comparison. Cardiac Catheterization: 03/02/2017 Selective Coronary Angiogram Findings: Dominance: Right Anomalies: none Left Main normal LAD Narrow vessels,mild diffuse disease in distal LAD and D1 LCx Narrow vessel, small Cx High OM vs Ramus with mild-moderate disease in the proximal OM RCA No stenosis SUMMARY OF FINDINGS: Hemoglobin 11.7g/dL Body surface area is 1.41 meters squared. Heart Rate:84 Baseline Pressures (mmHg) Saturations (%) AO (mmHg) 125/73/96 96% LV (mmHg) 124/4; LVEDP 13 RA (a/v/mean) 14/8/ 79% IVC 75% RV (systolic/EDP) 35/1 RVEDP 5 76% PA (systolic/diastolic/mean) 76% PCWP (a/v/mean) Transpulmonary gradient 16 Hali Thermodilution Hali Cardiac Output (L/min) 5.45 Hali Cardiac Index (L/min/m2) 3.73 SVR (dynes*sec*cm-5) 1360 PVR (Omer Units) 2.8 Radiology Studies: CT AAA: 06/25/2018 1. The abdominal aorta is normal in [...] no arterial stenosis or venous thrombosis identified. Production Sanitizer dimensions of the left and the right external iliac arteries and veins are as described above. 2. Widely patent mesenteric arteries. Impression: Vance Barrera is a 43 y.o. male with a history of likely secundum ASD with a Qp:Qs of 1:1 by TTE, ESRD/HD and type 1 diabetes mellitus. He has diminished LV function since his last visit. The etiology is not clear but likely related to renal disease. Plan: 1. Will plan for right heart catheterization due to decline in LV function and reassess shunt fraction again. 2. Will need to optimize guideline-directed medical therapy. Increase carvedilol. If blood pressuresremains elevated would consider for Entresto ( after discussion w/ Nephrology) versus hydralazine / isosorbide. 3. Etiology of ventricular dysfunction likely to be a combination of chronic nani-cardiac syndrome (Type 4 cardiorenal syndrome) and hypertension. 4. If additional reassurance is required after catheterization can consider for cardiopulmonary exercise testing but not entirely necessary at this time. 5. Previously noted to have an ASD. ASD Closure: Class I recommendations : if there is evidence of RA or RV enlargement. In this case, the patient has no indication of either. A shunt fraction may be helpful, but as the Qp:Qs is 1:1 by TTE, it is unlikely to be higher by ROSIE (and not close to 2:1 where there would be an automatic indication for closure). No significant shunt identified by catheterization. 6. Cardiac catheterization : Normal coronaries. There was no evidence of left to right shunt. 7. CT w/ run-off as part of transplant assessment completed and patent vessels. 8. Will reassess candidacy after repeat studies. Follow-Up : 3 Months Thank you for referring this patient for consultation and allowing me to participate in his care. Please do not hesitate to call with any questions. Jazmyne Aceves MD [facility] Data Acquisition Technicianexecutive producer promos, Section of Cardiology Pager: [phone] [phone] Office: [phone] Recommendations for ASD closure: UpToDate documented in this encounter Plan of Treatment Date Type Specialty Care Team Description 10/31/2018 Office Visit Cardiology Jazmyne Aceves MD [address] [place] [address] [phone] Health Maintenance Due Date Last Done Comments MEDICARE AWV 1975 TETANUS SHOT (ADULT) 07/17/1990 BMI FOLLOW UP PLAN 07/17/1993 HIV SCREENING 07/17/1993 FLU VACCINE > 6 MONTHS 09/05/2018 documented as of this encounter Results Not on filedocumented in this encounter Visit Diagnoses Diagnosis Chronic combined systolic and diastolic congestive heart failure - Primary Chronic combined systolic and diastolic heart failure documented in this encounter Insurance Payer Benefit Plan / Subscriber ID Effective Dates Phone Address Type Group MEDICARE MEDICARE PART A xxxxxxxxxxx 2016-Present [address] Medicare [place] [address] (Home) [place] [address] documented as of this encounter
[2018-10-26 07:34] LABS: Absolute Lymphocytes (CBC) 0.6 K/uL (0.7-4.9); Basophils % 0.6 % (0-1.3); Hematocrit 36.6 % (39.6-49.0); MPV 11.5 fL (7.6-11.3); RBC Red Blood Cell Count 3.89 M/uL (4.33-5.43)
[2018-10-26 07:37] LABS: Protime INR 1.09
[2018-10-26 08:36] LABS: Albumin 3.7 g/dL (3.4-5.0); Bilirubin Direct 0.3 mg/dL (0-0.2); Bilirubin Total 0.7 mg/dL (0.2-1.0); Magnesium 2.6 mg/dL (1.8-2.4); Phosphorus 3.3 mg/dL (2.5-4.9); Troponin (Emerg Dept Use Only) 0.2 ng/mL (0.0-0.045)
[2018-10-26 08:39] LABS: Potassium 6.7 mmol/L (3.5-5.1)
--- NOTE | 2018-10-26 08:45 | ER ---
Nurse's Notes [facility] Name: Vance Barrera Age: 43 yrs Sex: Male : 1975 Arrival Date: 10/26/2018 Time: 06:36 Bed 19 Private MD: Diagnosis: Hyperkalemia;Missed dialysis today - dc to dialysis Presentation: 10/26 06:40 Presenting complaint: Patient states: that for the past 2 days he has been having abd fc pain and frequent small amt. Denies any nausea and vomiting. Pt voids small amts occasionally, Has dialysis Tues/Th/Sat. Fistula to left upper inner arm. Transition of care: patient was not received from another setting of care. Onset of symptoms was October 24, 2018. Risk Assessment: Do you want to hurt yourself or someone else? Patient reports no desire to harm self or others. Initial Sepsis Screen: Does the patient meet any 2 criteria? No. Patient's initial sepsis screen is negative. Does the patient have a suspected source of infection? No. Patient's initial sepsis screen is negative. Care prior to arrival: None. 06:40 Method Of Arrival: Ambulatory fc 06:40 Acuity: DENY 3 fc Historical: - Allergies: 07:00 No Known Allergies; fc - Home Meds: 07:00 calcium acetate 667 mg Oral cap 2 caps 3 times per day [Active]; Suzanna-Gaudencio 0.8 mg oral fc tab daily [Active]; mirtazapine 7.5 mg Oral tab 1 tabs nightly [Active]; Tradjenta 5 mg oral tab 1 tab once daily [Active]; pravastatin 40 mg Oral tab 1 tab once daily [Active]; carvedilol 12.5 mg oral tab 1 tab 2 times per day [Active]; - PMHx: 07:00 Diabetes - IDDM; ESRD; pleural effusions; Pneumonia; High Cholesterol; fc - PSHx: 07:00 Left arm fistula; fc - Immunization history:: Last tetanus immunization: unknown. - Social history:: Smoking status: Patient/guardian denies using tobacco, Patient/guardian denies using alcohol, street drugs. - Ebola Screening: : Patient negative for fever greater than or equal to 101.5 degrees Fahrenheit, and additional compatible Ebola Virus Disease symptoms Patient denies exposure to infectious person Patient denies travel to an Ebola-affected area in the 21 days before illness onset. Screenin:05 Abuse screen: Denies threats or abuse. Nutritional screening: No deficits noted. em Tuberculosis screening: No symptoms or risk factors identified. Fall Risk None identified. Assessment: 07:10 General: Appears in no apparent distress. comfortable, Behavior is calm, cooperative, em Denies fever. Pain: Complains of pain in suprapubic area Pain does not radiate. Pain currently is 4 out of 10 on a pain scale. Pain began 2-3 days ago. Neuro: Level of Consciousness is awake, alert, obeys commands, Oriented to person, place, time, situation. Cardiovascular: Denies chest pain, Capillary refill < 3 seconds Patient's skin is warm and dry. Respiratory: Airway is patent Respiratory effort is even, unlabored, Respiratory pattern is regular, symmetrical. GI: Abdomen is flat, Bowel sounds present X 4 quads. Abd is soft X 4 quads Abdomen is tender to palpation in suprapubic area, right lower quadrant and left lower quadrant Reports constipation, Patient currently denies nausea, vomiting. Derm: Skin is intact, is healthy with good turgor, Skin is pink, warm \T\ dry. Musculoskeletal: Capillary refill < 3 seconds, Range of motion: intact in all extremities. 07:10 Reassessment: I agree with assessment completed by Junior Miranda LVN . aa5 08:00 Reassessment: Patient appears in no apparent distress at this time. Patient and/or em family updated on plan of care and expected duration. Pain level reassessed. Patient is alert, oriented x 3, equal unlabored respirations, skin warm/dry/pink. 08:55 Reassessment: pending administration of meds before being discharged. em 09:01 Reassessment: Pt c/o nausea, pt vomited once, DIRECTOR TARGETED MARKETING was notified. . aa5 Vital Signs: 06:40 BP 138 / 83; Pulse 78; Resp 18; Temp 98.3(O); Pulse Ox 99% on R/A; Weight 39.01 kg (R); fc Height 5 ft. 5 in. (165.10 cm) (R); Pain 4/10; 07:39 BP 147 / 89; Pulse 76; Resp 18; Pulse Ox 98% on R/A; Pain 4/10; em 09:26 BP 165 / 86; Pulse 92; Resp 20; Pulse Ox 99% on R/A; em 06:40 Body Mass Index 14.31 (39.01 kg, 165.10 cm) ED Course: 06:36 Patient arrived in ED. ds1 06:40 Arm band placed on Patient placed in an exam room, on a stretcher. fc 06:50 Loco Mckinney MD is Attending Physician. rickie 06:52 [facility]ahl[facility] Driscoll [facility]-C [facility]. snw 06:57 Triage completed. fc 07:05 Patient has correct armband on for positive identification. Placed in gown. Bed in low em position. Call light in reach. Adult w/ patient. surveillance system monitor on. Pulse ox on. NIBP on. 07:05 Initial lab(s) drawn, by me, sent to lab. Inserted saline lock: 22 gauge in right em antecubital area, using aseptic technique. Blood collected. 07:06 Junior Miranda LVN is Primary Nurse. em 07:20 XRAY Chest (1 view) In Process Unspecified. EDMS 09:41 No provider procedures requiring assistance completed. IV discontinued, intact, em bleeding controlled, No redness/swelling at site. Pressure dressing applied. Administered Medications: 08:45 Drug: Calcium Chloride 10% 10 ml Route: IVP; Site: right antecubital; aa5 09:00 Follow up: Response: c/o nausea aa5 08:55 Drug: D50W 25 ml Route: IVP; Site: right antecubital; aa5 09:00 Follow up: c/o nausea aa5 09:00 Drug: Insulin Regular Human 10 units {Co-Signature: em (Junior Miranda LVN).} Route: IVP; aa5 Site: right antecubital; 09:00 Follow up: c/o nausea aa5 09:02 Drug: Phenergan 6.25 mg Route: IVP; Site: right antecubital; aa5 09:29 Follow up: Response: No adverse reaction; Nausea is decreased em 09:14 Drug: Albuterol 2.5 mg Route: Inhalation; em 09:29 Follow up: Response: No adverse reaction em 09:29 Drug: Kayexalate 30 grams Route: PO; em 09:41 Follow up: Response: No adverse reaction em Point of Care Testing: Blood Glucose: 07:25 Blood Glucose: 243 mg/dL; em Ranges: Intake: Outcome: 08:44 Discharge ordered by MD. colin 09:41 Discharged to home ambulatory, with family. em 09:41 Condition: good 09:41 Discharge instructions given to patient, family, Instructed on discharge instructions, follow up and referral plans. medication usage, report to dialysis after being discharged Demonstrated understanding of instructions, follow-up care, medications, Prescriptions given X 1. 09:41 Condition: Pt instructed to go to Dialysis right after d/c from ER, pt and pt's mother aa5 verbalized understanding and importance of dialysis. 09:42 Patient left the ED. em Signatures: Dispatcher [employer] Loco Her MD MD cha Therrien, Shelly, SAFETY BELT INSTALLER-C SAFETY BELT INSTALLER-Csnw Liana Marie, RN Junior Sams LVN [employer]OLD [employer]LL P[employer]ER [employer] em Gracy William ds1 Henny Leigh RN RN aa5 Junior Miranda LVN em
--- NOTE | 2018-10-26 08:45 | EDPHYS ---
Physician Documentation [facility] Name: Vance Barrera Age: 43 yrs Sex: Male : 1975 Arrival Date: 10/26/2018 Time: 06:36 Bed 19 Private MD: PRASHANT Physician Loco Mckinney HPI: 10/26 07:11 This 43 yrs old Male presents to ER via Ambulatory with complaints of snw Abdominal Pain. 07:11 The patient presents with abd cramps, frequent stools, preventing pt from having snw dialysis today as his bathroom visits are too frequent. Onset: The symptoms/episode began/occurred suddenly, 3 day(s) ago, and became persistent. The symptoms do not radiate. Associated signs and symptoms: Pertinent positives: anorexia, diarrhea, nausea. The symptoms are described as crampy. Severity of pain: At its worst the pain was moderate. It is unknown whether or not the patient has had similar symptoms in the past. The patient has not recently seen a physician, the patient's primary care provider is Dr. Dr. Hicks. Historical: - Allergies: 07:00 No Known Allergies; fc - Home Meds: 07:00 calcium acetate 667 mg Oral cap 2 caps 3 times per day [Active]; Suzanna-Gaudencio 0.8 mg oral fc tab daily [Active]; mirtazapine 7.5 mg Oral tab 1 tabs nightly [Active]; Tradjenta 5 mg oral tab 1 tab once daily [Active]; pravastatin 40 mg Oral tab 1 tab once daily [Active]; carvedilol 12.5 mg oral tab 1 tab 2 times per day [Active]; - PMHx: 07:00 Diabetes - IDDM; ESRD; pleural effusions; Pneumonia; High Cholesterol; fc - PSHx: 07:00 Left arm fistula; fc - Immunization history:: Last tetanus immunization: unknown. - Social history:: Smoking status: Patient/guardian denies using tobacco, Patient/guardian denies using alcohol, street drugs. - Ebola Screening: : Patient negative for fever greater than or equal to 101.5 degrees Fahrenheit, and additional compatible Ebola Virus Disease symptoms Patient denies exposure to infectious person Patient denies travel to an Ebola-affected area in the 21 days before illness onset. ROS: 07:11 Eyes: Negative for injury, pain, redness, and discharge, ENT: Negative for injury, snw pain, and discharge, Neck: Negative for injury, pain, and swelling, Cardiovascular: Negative for chest pain, palpitations, and edema, Respiratory: Negative for shortness of breath, cough, wheezing, and pleuritic chest pain, Back: Negative for injury and pain, : Negative for injury, bleeding, discharge, and swelling, MS/Extremity: Negative for injury and deformity, Skin: Negative for injury, rash, and discoloration, Neuro: Negative for headache, weakness, numbness, tingling, and seizure, Psych: Negative for depression, anxiety, suicide ideation, homicidal ideation, and hallucinations. 07:11 Constitutional: Positive for fatigue, malaise, poor PO intake. 07:11 Abdomen/GI: Positive for nausea, abdominal cramps, frequent stools. Exam: 07:09 Head/Face: Normocephalic, atraumatic. Eyes: Pupils equal round and reactive to light, snw extra-ocular motions intact. Lids and lashes normal. Conjunctiva and sclera are mildly icteric and not injected. Cornea within normal limits. Periorbital areas with no swelling, redness, or edema. ENT: Nares patent. No nasal discharge, no septal abnormalities noted. Tympanic membranes are normal and external auditory canals are clear. Oropharynx with no redness, swelling, or masses, exudates, or evidence of obstruction, uvula midline. Mucous membranes moist. Neck: Trachea midline, no thyromegaly or masses palpated, and no cervical lymphadenopathy. Supple, full range of motion without nuchal rigidity, or vertebral point tenderness. No Meningismus. Chest/axilla: Normal chest wall appearance and motion. Nontender with no deformity. No lesions are appreciated. 07:09 Respiratory: Lungs have equal breath sounds bilaterally, clear to auscultation and percussion. No rales, rhonchi or wheezes noted. No increased work of breathing, no retractions or nasal flaring. 07:09 Back: No spinal tenderness. No costovertebral tenderness. Full range of motion. Skin: Warm, dry with normal turgor. Normal color with no rashes, no lesions, and no evidence of cellulitis. MS/ Extremity: Pulses equal, no cyanosis. Neurovascular intact. Full, normal range of motion. 07:09 Constitutional: The patient appears awake, frail, cachectic 07:09 Cardiovascular: Rate: normal, Rhythm: regular, Pulses: no pulse deficits are appreciated, Heart sounds: murmur, S3, increased, Edema: is not appreciated. 07:09 Abdomen/GI: Inspection: abdomen appears normal, Bowel sounds: diminished, in all quadrants, Palpation: soft, in all quadrants. 07:09 Neuro: hard of hearing. Vital Signs: 06:40 BP 138 / 83; Pulse 78; Resp 18; Temp 98.3(O); Pulse Ox 99% on R/A; Weight 39.01 kg (R); fc Height 5 ft. 5 in. (165.10 cm) (R); Pain 4/10; 07:39 BP 147 / 89; Pulse 76; Resp 18; Pulse Ox 98% on R/A; Pain 4/10; em 09:26 BP 165 / 86; Pulse 92; Resp 20; Pulse Ox 99% on R/A; em 06:40 Body Mass Index 14.31 (39.01 kg, 165.10 cm) fc MDM: 06:50 Patient medically screened. rickie 08:45 Data reviewed: vital signs, nurses notes. Data interpreted: Pulse oximetry: on room air snw is 98 %. Interpretation: normal. Counseling: I had a detailed discussion with the patient and/or guardian regarding: the historical points, exam findings, and any diagnostic results supporting the discharge/admit diagnosis, the presence of at least one elevated blood pressure reading (>120/80) during this emergency department visit, lab results, radiology results, the need for outpatient follow up, dialysis today. Response to treatment: the patient's symptoms have mildly improved after treatment. 10/26 06:50 Order name: Basic Metabolic Panel; Complete Time: 08:40 snw 10/26 06:50 Order name: CBC with Diff; Complete Time: 07:46 snw 10/26 06:50 Order name: LFT's; Complete Time: 08:40 snw 10/26 06:50 Order name: Magnesium; Complete Time: 08:40 snw 10/26 06:50 Order name: NT PRO-BNP; Complete Time: 08:40 snw 10/26 06:50 Order name: PT-INR; Complete Time: 07:46 snw 10/26 06:50 Order name: Troponin (emerg Dept Use Only); Complete Time: 08:40 snw 10/26 06:50 Order name: XRAY Chest (1 view) 10/26 06:50 Order name: Phosphorus; Complete Time: 08:40 snw 10/26 06:50 Order name: EKG; Complete Time: 06:53 10/26 06:50 Order name: Cardiac monitoring; Complete Time: 07:13 10/26 06:50 Order name: EKG - Nurse/Tech; Complete Time: 07:13 10/26 06:50 Order name: IV Saline Lock; Complete Time: 07:13 10/26 06:50 Order name: Labs collected and sent; Complete Time: 07:28 10/26 06:50 Order name: O2 Per Protocol; Complete Time: 07:13 10/26 06:50 Order name: O2 Sat Monitoring; Complete Time: 07:13 10/26 06:50 Order name: FSBS; Complete Time: 07:28 snw Administered Medications: 08:45 Drug: Calcium Chloride 10% 10 ml Route: IVP; Site: right antecubital; aa5 09:00 Follow up: Response: c/o nausea aa5 08:55 Drug: D50W 25 ml Route: IVP; Site: right antecubital; aa5 09:00 Follow up: c/o nausea aa5 09:00 Drug: Insulin Regular Human 10 units {Co-Signature: em (Junior Miranda LVN).} Route: IVP; aa5 Site: right antecubital; 09:00 Follow up: c/o nausea aa5 09:02 Drug: Phenergan 6.25 mg Route: IVP; Site: right antecubital; aa5 09:29 Follow up: Response: No adverse reaction; Nausea is decreased em 09:14 Drug: Albuterol 2.5 mg Route: Inhalation; em 09:29 Follow up: Response: No adverse reaction em 09:29 Drug: Kayexalate 30 grams Route: PO; em 09:41 Follow up: Response: No adverse reaction em Point of Care Testing: Blood Glucose: 07:25 Blood Glucose: 243 mg/dL; em Ranges: Critical Glucose Levels:Adult <50 mg/dl or >400 mg/dl <40 mg/dl or >180 mg/dl Disposition: 10/26/18 08:44 Discharged to Home. Impression: Hyperkalemia, Missed dialysis today - dc to dialysis. - Condition is Stable. - Discharge Instructions: Abdominal Pain, Adult, Hyperkalemia, Dialysis, Dialysis Diet. - Prescriptions for Bentyl 20 mg Oral Tablet - take 1 tablet by ORAL route every 6 hours As needed; 20 tablet. - Medication Reconciliation Form, Thank You Letter, Antibiotic Education, Prescription Opioid Use form. - Follow up: Private Physician; When: Upon discharge from the Emergency Department; Reason: To dialysis. Follow up: Emergency Department; When: As needed; Reason: Worsening of condition. - Notes: Avoid pepto-bismol Addendum: 10/28/2018 09:17 Co-signature as Attending Physician, Loco Mckinney MD I agree with the assessment and c kuo plan of care. Signatures: Dispatcher [employer] oLco Her MD MD cha Therrien, Shelly, COMMERCIAL REVIEW APPRAISER-C COMMERCIAL REVIEW APPRAISER-Csnw Liana Maire, RN RN Junior Miranda LVN GUNSTOCK REPAIRER em Henny Leigh RN PERLA aa5 Junior Miranda GUNSTOCK REPAIRER em Corrections: (The following items were deleted from the chart) 10/26 09:42 08:44 10/26/2018 08:44 Discharged to Home. Impression: Hyperkalemia; Missed dialysis em today - dc to dialysis. Condition is Stable. Forms are Medication Reconciliation Form, Thank You Letter, Antibiotic Education, Prescription Opioid Use. Follow up: Private Physician; When: Upon discharge from the Emergency Department; Reason: To dialysis. Follow up: Emergency Department; When: As needed; Reason: Worsening of condition. snw
[2018-10-26] MEDS ORDERED: SOD POLYSTYREN SUL 15 GM/60 ML UCUP ONE (08:50)
[2018-10-26] MEDS ORDERED: ALBUTEROL 2.5 MG/3 ML NEB SOL ONE (08:50)
[2018-10-26] MEDS ORDERED: INSULIN -REGULAR HUMAN 50 UNIT/0.5 ML ML ONE (08:50)
[2018-10-26] MEDS ORDERED: D50W 25 GM/50 ML SYRINGE IV ONE (08:50)
[2018-10-26] MEDS ORDERED: Caclcium Chloride 10% INJ SYR IV ONE (08:51)
[2018-10-26] MEDS ORDERED: PROMETHAZINE 25 MG/ML VIAL ONE (09:04)
[2018-10-26 09:54] VITALS: TEMP 98.3
[2018-10-26 09:57] VITALS: BP 165/86; O2SAT 99
--- NOTE | 2018-10-26 11:01 | RAD REPORT ---
EXAM DESCRIPTION: RAD - Chest Single View - 10/26/2018 7:19 am CLINICAL HISTORY: abd pain Chest pain. COMPARISON: Chest Pa And Lat (2 Views) dated 08/24/2017; Chest Pa And Lat (2 Views) dated 08/08/2017; C hest Single View dated 08/06/2017; Chest Single View dated 06/25/2017 FINDINGS: Portable technique limits examination quality. Mild interstitial pulmonary edema is present. Bilateral pleural effusions are noted. The heart is mil dly enlarged in size. Stents are noted in the upper left arm. IMPRESSION: Mild CHF versus volume overload pattern.
--- NOTE | 2018-10-27 13:21 | EKG ---
Test Date: 2018-10-26 Test Time: 07:11:08 Weight Loss Counselor: SHOLA MEASUREMENT RESULTS: Intervals: Rate: 77 NJ: 188 QRSD: 100 QT: 376 QTc: 425 Blanket: P: 76 NJ: 188 QRS: 64 T: -68 INTERPRETIVE STATEMENTS: Normal sinus rhythm Left atrial enlargement RSR' or QR pattern in V1 suggests right ventricular conduction delay Left ventricular hypertrophy ST & T wave abnormality, consider inferolateral ischemia Abnormal ECG Compared to ECG 08/06/2017 17:44:38 RSR' in V1 or V2 now present Left ventricular hypertrophy now present ST (T wave) deviation now present T-wave abnormality no longer present Possible ischemia still present Electronically Signed On 10-27-18 13:19:03 CDT by Mark Manning
== END 2018-10-26 09:42 | disposition home or self-care (01) ==
LOC: ER 06:34
DX: E87.5 Hyperkalemia (principal); E11.22 Type 2 diabetes mellitus with diabetic chronic kidney disease; N18.6 End stage renal disease; E78.00 Pure hypercholesterolemia, unspecified; Z99.2 Dependence on renal dialysis; Z91.15 Patient's noncompliance with renal dialysis
CPT/HCPCS: 93005; 85025; 80048; 36415; 83735; 84100; 85610; 82962; 80076; 84484; 83880; 71045; 96375; 96374; 99285; J2550

== ENCOUNTER 2018-10-31 13:35 | Emergency (ER) | payer OTHER ==
--- NOTE | 2018-10-31 16:21 | RAD REPORT ---
EXAM DESCRIPTION: RAD - Pelvis - 10/31/2018 3:37 pm CLINICAL HISTORY: PAIN COMPARISON: Hip Left 2 View dated 10/31/2018 FINDINGS: Mild osteoarthritic changes are present. No fracture is suspected.
--- NOTE | 2018-10-31 16:32 | RAD REPORT ---
EXAM DESCRIPTION: RAD - Hip Left 2 View - 10/31/2018 3:42 pm CLINICAL HISTORY: PAIN COMPARISON: <Comparisons> FINDINGS: Mild arthritic changes are present. No fracture, dislocation or AVN.
--- NOTE | 2018-10-31 16:34 | RAD REPORT ---
EXAM DESCRIPTION: RAD - Lumbar Spine 3 Views - 10/31/2018 3:42 pm CLINICAL HISTORY: PAIN Radiculopathy COMPARISON: No comparisons FINDINGS: Vertebral body heights appear maintained. No compression fracture noted. Disc spaces are m aintained. 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 Mild lumbar dextroscoliosis noted. IMPRESSION: Mild lumbar dextroscoliosis.
--- NOTE | 2018-10-31 17:30 | EDPHYS ---
Physician Documentation [facility] Name: Vance Barrera Age: 43 yrs Sex: Male : 1975 Arrival Date: 10/31/2018 Time: 13:37 Bed 27 Private MD: Luisito Hicks ED Physician Andrew Douglass HPI: 10/31 17:05 This 43 yrs old Male presents to ER via Ambulatory with complaints of Repeated gs Falls- Leg/Hip Pain. 17:05 Details of fall: The patient fell from an upright position. Onset: The symptoms/episode gs began/occurred today, yesterday. Associated injuries: The patient sustained 17:25 Severity of symptoms: At their worst the symptoms were moderate, in the emergency gs department the symptoms are unchanged. The patient has experienced similar episodes in the past, several times. Historical: - Allergies: 13:49 No Known Allergies; sg - PMHx: 13:49 Diabetes - IDDM; ESRD; High Cholesterol; pleural effusions; Pneumonia; sg - PSHx: 13:49 Left arm fistula; sg - Immunization history:: Adult Immunizations up to date. - Social history:: Smoking status: Patient/guardian denies using tobacco. - Ebola Screening: : Patient negative for fever greater than or equal to 101.5 degrees Fahrenheit, and additional compatible Ebola Virus Disease symptoms Patient denies exposure to infectious person Patient denies travel to an Ebola-affected area in the 21 days before illness onset No symptoms or risks identified at this time. ROS: 17:25 All other systems are negative. gs Exam: 17:25 Head/Face: Normocephalic, atraumatic. Eyes: Pupils equal round and reactive to light, gs extra-ocular motions intact. Lids and lashes normal. Conjunctiva and sclera are non-icteric and not injected. Cornea within normal limits. Periorbital areas with no swelling, redness, or edema. ENT: Nares patent. No nasal discharge, no septal abnormalities noted. Tympanic membranes are normal and external auditory canals are clear. Oropharynx with no redness, swelling, or masses, exudates, or evidence of obstruction, uvula midline. Mucous membranes moist. Neck: Trachea midline, no thyromegaly or masses palpated, and no cervical lymphadenopathy. Supple, full range of motion without nuchal rigidity, or vertebral point tenderness. No Meningismus. Chest/axilla: Normal chest wall appearance and motion. Nontender with no deformity. No lesions are appreciated. Cardiovascular: Regular rate and rhythm with a normal S1 and S2. No gallops, murmurs, or rubs. Normal PMI, no JVD. No pulse deficits. Respiratory: Lungs have equal breath sounds bilaterally, clear to auscultation and percussion. No rales, rhonchi or wheezes noted. No increased work of breathing, no retractions or nasal flaring. Abdomen/GI: Soft, non-tender, with normal bowel sounds. No distension or tympany. No guarding or rebound. No evidence of tenderness throughout. Skin: Warm, dry with normal turgor. Normal color with no rashes, no lesions, and no evidence of cellulitis. Neuro: Awake and alert, GCS 15, oriented to person, place, time, and situation. Cranial nerves II-XII grossly intact. Motor strength 5/5 in all extremities. Sensory grossly intact. Cerebellar exam normal. Normal gait. 17:25 Constitutional: The patient appears alert, awake, uncomfortable. 17:25 Back: pain, that is mild, of the lumbar area. 17:25 Musculoskeletal/extremity: Extremities: noted in the left hip: pain, ROM: no acute changes, Perfusion: the patient is normally perfused throughout, Sensation intact. Vital Signs: 13:52 BP 142 / 78; Pulse 85; Resp 20; Temp 98.8(O); Pulse Ox 100% ; lt1 15:24 BP 142 / 81; Pulse 100; Resp 16; Pulse Ox 100% on R/A; tr5 16:07 BP 145 / 79; Pulse 83; Resp 18; Pulse Ox 97% on R/A; tr5 17:13 BP 146 / 87; Pulse 83; Resp 17; Pulse Ox 98% on R/A; tr5 MDM: 14:45 Patient medically screened. 17:25 Differential diagnosis: contusion, fracture. Data reviewed: vital signs, nurses notes, gs radiologic studies. Counseling: I had a detailed discussion with the patient and/or guardian regarding: the historical points, exam findings, and any diagnostic results supporting the discharge/admit diagnosis, radiology results. 10/31 14:46 Order name: Pelvis XRAY; Complete Time: 17:04 10/31 14:46 Order name: Lumbar Spine (3 Views) XRAY; Complete Time: 17:04 10/31 14:46 Order name: Hip Left 2 View XRAY; Complete Time: 17:04 Administered Medications: No medications were administered Disposition: 10/31/18 17:29 Discharged to Home. Impression: Contusion of lower back and pelvis, Contusion of left hip. - Condition is Stable. - Discharge Instructions: Contusion. - Medication Reconciliation Form, Thank You Letter, Antibiotic Education, Prescription Opioid Use form. - Follow up: Private Physician; When: 2 - 3 days; Reason: Re-evaluation by your physician. Signatures: Dispatcher [employer] EDNilson Dial RN RN sg Andrew Douglass MD MD gs Rodriguez, Tommie, RN RN tr5 Corrections: (The following items were deleted from the chart) 17:56 17:29 10/31/2018 17:29 Discharged to Home. Impression: Contusion of lower back and tr5 pelvis; Contusion of left hip. Condition is Stable. Forms are Medication Reconciliation Form, Thank You Letter, Antibiotic Education, Prescription Opioid Use. Follow up: Private Physician; When: 2 - 3 days; Reason: Re-evaluation by your physician.
--- NOTE | 2018-10-31 17:30 | ER ---
Nurse's Notes [facility] Name: Vance Barrera Age: 43 yrs Sex: Male : 1975 Arrival Date: 10/31/2018 Time: 13:37 Bed 27 Private MD: Luisito Hicks Diagnosis: Contusion of lower back and pelvis;Contusion of left hip Presentation: 10/31 13:50 Presenting complaint: Patient states: Has been feeling week for several days, reports sg having a fall yesterday and this morning having pain in the hips and legs at this time, reports is able to walk but experiences pain with ambulation, is able to stand from wheelchair to get into bed, but it is painful. Denies N/v//d/fever at this time. Transition of care: patient was not received from another setting of care. Onset of symptoms was October 31, 2018. Risk Assessment: Do you want to hurt yourself or someone else? Patient reports no desire to harm self or others. Initial Sepsis Screen: Does the patient meet any 2 criteria? No. Patient's initial sepsis screen is negative. Does the patient have a suspected source of infection? No. Patient's initial sepsis screen is negative. Care prior to arrival: None. 13:50 Method Of Arrival: Ambulatory sg 13:50 Acuity: DENY 3 sg Historical: - Allergies: 13:49 No Known Allergies; sg - PMHx: 13:49 Diabetes - IDDM; ESRD; High Cholesterol; pleural effusions; Pneumonia; sg - PSHx: 13:49 Left arm fistula; sg - Immunization history:: Adult Immunizations up to date. - Social history:: Smoking status: Patient/guardian denies using tobacco. - Ebola Screening: : Patient negative for fever greater than or equal to 101.5 degrees Fahrenheit, and additional compatible Ebola Virus Disease symptoms Patient denies exposure to infectious person Patient denies travel to an Ebola-affected area in the 21 days before illness onset No symptoms or risks identified at this time. Screenin:05 Abuse screen: Denies threats or abuse. Nutritional screening: No deficits noted. tr5 Tuberculosis screening: No symptoms or risk factors identified. Fall Risk Fall in past 12 months (25 points). No secondary diagnosis (0 pts). No IV (0 pts). Ambulatory Aid- None/Bed Rest/Nurse Assist (0 pts). Gait- Weak (10 pts.). Mental Status- Oriented to own ability (0 pts). Total Driscoll Fall Scale indicates Low Risk Score (25-44 pts). Fall prevention measures have been instituted. Side Rails Up X 2 Frequent Obs/Assesments occuring Family Present and informed to notify staff if they need to leave bedside. Assessment: 14:05 General: Appears in no apparent distress. Behavior is calm, cooperative. Pain: Denies tr5 pain. Neuro: Level of Consciousness is awake, alert, Oriented to person, place, time, Butter Wrapper are equal bilaterally Weakness Gait is unsteady, Speech is normal, Facial symmetry appears normal, Reports dizziness, weakness. Cardiovascular: Heart tones present Capillary refill < 3 seconds Pulses are all present. Respiratory: Airway is patent Respiratory effort is even, unlabored, Respiratory pattern is regular, symmetrical. GI: Reports vomiting, Loss of appetite. : No signs and/or symptoms were reported regarding the genitourinary system. EENT: No signs and/or symptoms were reported regarding the EENT system. Derm: Skin is intact, Skin is dry, Skin is normal. Musculoskeletal: Capillary refill < 3 seconds, Range of motion: intact in all extremities. 15:00 Reassessment: Patient appears in no apparent distress at this time. Patient and/or tr5 family updated on plan of care and expected duration. Pain level reassessed. Patient is alert, oriented x 3, equal unlabored respirations, skin warm/dry/pink. 16:07 Reassessment: Patient appears in no apparent distress at this time. Patient and/or tr5 family updated on plan of care and expected duration. Pain level reassessed. Patient is alert, oriented x 3, equal unlabored respirations, skin warm/dry/pink. 17:13 Reassessment: Patient appears in no apparent distress at this time. Patient and/or tr5 family updated on plan of care and expected duration. Pain level reassessed. Patient is alert, oriented x 3, equal unlabored respirations, skin warm/dry/pink. Vital Signs: 13:52 BP 142 / 78; Pulse 85; Resp 20; Temp 98.8(O); Pulse Ox 100% ; lt1 15:24 BP 142 / 81; Pulse 100; Resp 16; Pulse Ox 100% on R/A; tr5 16:07 BP 145 / 79; Pulse 83; Resp 18; Pulse Ox 97% on R/A; tr5 17:13 BP 146 / 87; Pulse 83; Resp 17; Pulse Ox 98% on R/A; tr5 ED Course: 13:37 Patient arrived in ED. as 13:38 Luisito Hicks MD is Private Physician. as 13:48 Arm band placed on. sg 13:52 Triage completed. sg 13:58 Marcellus David, RN is Primary Nurse. tr5 14:05 Awaiting ED provider evaluation. tr5 14:05 Bed in low position. Call light in reach. Adult w/ patient. Pulse ox on. NIBP on. tr5 14:21 Andrew Douglass MD is Attending Physician. gs 15:00 Awaiting for x-ray. tr5 15:00 Patient moved to radiology. tr5 15:37 Pelvis XRAY In Process Unspecified. EDMS 15:48 Lumbar Spine (3 Views) XRAY In Process Unspecified. EDMS 15:48 Hip Left 2 View XRAY In Process Unspecified. EDMS 17:55 No provider procedures requiring assistance completed. Patient did not have IV access tr5 during this emergency room visit. Administered Medications: No medications were administered Outcome: 17:29 Discharge ordered by . 17:55 Discharged to home via wheelchair. tr5 17:55 Condition: stable 17:55 Discharge instructions given to patient, Instructed on discharge instructions, follow up and referral plans. Demonstrated understanding of instructions, follow-up care. 17:56 Patient left the ED. tr5 Signatures: Dispatcher [employer] EDMS Nilson Brady, RN RN Anusha Orellana as Andrew Douglass MD MD [place] [id number] Marcellus David, PERLA RN tr5
[2018-10-31 18:15] VITALS: TEMP 98.8
[2018-10-31 18:19] VITALS: BP 146/87; O2SAT 98
== END 2018-10-31 17:56 | disposition home or self-care (01) ==
LOC: ER 13:35
DX: S30.0XXA Contusion of lower back and pelvis, initial encounter (principal); S70.02XA Contusion of left hip, initial encounter; W19.XXXA Unspecified fall, initial encounter; Y93.9 Activity, unspecified; Y92.9 Unspecified place or not applicable
CPT/HCPCS: 72100; 72170; 99283

== ENCOUNTER → 2019-01-31 | Emergency (ER) | payer OTHER ==
[~2019-01-31] MED LIST: ACETAMINOPHEN 325 MG TABLET PO PRN; ALBUTEROL 2.5 MG/3 ML NEB SOL NEB PRN; AMLODIPINE 10 MG TAB PO SCH; AZITHROMYCIN 250 MG TAB PO SCH; CEFTRIAXONE/SWI 1gm 1 GM/10 ML SYR IV SCH; CEFTRIAXONE/SWI 1gm 1 GM/10 ML SYR ONE; D50W 25 GM/50 ML SYRINGE/VIAL IV PRN; DOXAZOSIN 2 MG TAB PO SCH; EPOETIN ALFA 4000 UNIT/1 ML VIAL SQ SCH; FAMOTIDINE 20 MG TAB PO SCH; FUROSEMIDE 40 MG/4 ML VIAL IV ONE; GLUCAGON 1 MG/VIAL IM PRN; GUAIFENESIN/DM 5 ML UCUP PO PRN; HEPARIN 5000 UNIT/ML 1 ML VIAL SQ SCH; HYDRALAZINE HCL 20 MG/ML VIAL IV PRN; INSULIN -REGULAR HUMAN 100 UNIT in NA CHLORIDE 0.9% 100 ML IV SCH; INSULIN -REGULAR HUMAN 50 UNIT/0.5 ML ML ONE; INSULIN -REGULAR HUMAN 50 UNIT/0.5 ML ML SQ SCH; IPRATROPIUM BROM 0.5MG/2.5ML NEB SCH; IPRATROPIUM BROM 0.5MG/2.5ML ONE; NA CHLORIDE 0.9% 100 ML IV ONE; NEPRO SHAKE 237 ML CAN PO SCH; NPH (HUMAN) 100 UNITS/ML INSULIN SQ SCH; ONDANSETRON 4 MG/2 ML VIAL ONE; SEVELAMER CARBONATE 800 MG TABLET PO SCH; SOD POLYSTYREN SUL 15 GM/60 ML UCUP ONE; carvediloL 6.25 MG TAB PO SCH
--- OUTSIDE RECORDS SUMMARY | 2019-01-31 09:13 | XMS REPORT ---
:1975 [facility] Address [address] [place] [address] [address]. Flan[address] [place] [address] Care Team Providers Name Role Phone JAZMYNE [...] Comments SODIUM (BEAKER) (test 135 meq/L 136-145 ojnt=093) POTASSIUM (BEAKER) (test 5.0 meq/L 3.5-5.1 vktg=875) CHLORIDE (BEAKER) (test 97 meq/L 98-107 xyzl=530) CO2 (BEAKER) (test ozbp=273) 27 meq/L 22-29 BLOOD UREA NITROGEN (BEAKER) 49 mg/dL 7-21 (test uvwp=001) CREATININE (BEAKER) (test 6.52 mg/dL 0.57-1.25 xegw=853) GLUCOSE RANDOM (BEAKER) 207 mg/dL 70-105 (test wxlw=327) CALCIUM (BEAKER) (test 9.4 mg/dL 8.4-10.2 ksoj=627) EGFR (BEAKER) (test 9 mL/min/1.73 sq m ESTIMATED GFR IS NOT qjtx=2310) ACCURATE CREATININE CLEARANCE IN PREDICTING GLOMERULAR FILTRATION RATE. ESTIMATED GFR IS NOT APPLICABLE FOR DIALYSIS PATIENTS. HEPATIC FUNCTION [id number] 08:42:00 Test Item Value Reference Range Comments TOTAL PROTEIN (BEAKER) (test oruh=806) 7.4 gm/dL 6.0-8.3 ALBUMIN (BEAKER) (test hfvn=3787) 3.9 g/dL 3.5-5.0 BILIRUBIN TOTAL (BEAKER) (test kwgq=617) 0.6 mg/dL 0.2-1.2 BILIRUBIN DIRECT (BEAKER) (test awgu=543) 0.3 mg/dL 0.1-0.5 ALKALINE PHOSPHATASE (BEAKER) (test abnq=710) 128 U/L 40-150 AST (SGOT) (BEAKER) (test gmzb=903) 14 U/L 5-34 ALT (SGPT) (BEAKER) (test mwas=940) 12 U/L 6-55 CBC W/PLT COUNT & AUTO [id number] 08:24:00 Test Item Value Reference Range Comments WHITE BLOOD CELL COUNT (BEAKER) (test iogk=366) 6.6 K/ L 3.5-10.5 RED BLOOD CELL COUNT (BEAKER) (test mztd=165) 4.14 M/ L 4.63-6.08 HEMOGLOBIN (BEAKER) (test kcsp=332) 12.6 GM/DL 13.7-17.5 HEMATOCRIT (BEAKER) (test jgyd=098) 40.2 % 40.1-51.0 MEAN CORPUSCULAR VOLUME (BEAKER) (test eofy=032) 97.1 fL 79.0-92.2 MEAN CORPUSCULAR HEMOGLOBIN (BEAKER) (test 30.4 pg 25.7-32.2 tmbz=934) MEAN CORPUSCULAR HEMOGLOBIN CONC (BEAKER) (test 31.3 GM/DL 32.3-36.5 xixa=461) RED CELL DISTRIBUTION WIDTH (BEAKER) (test 13.9 % 11.6-14.4 egar=925) PLATELET COUNT (BEAKER) (test qkua=665) 146 K/CU MM 150-450 MEAN PLATELET VOLUME (BEAKER) (test uxzh=189) 13.1 fL 9.4-12.4 NUCLEATED RED BLOOD CELLS (BEAKER) (test 0 /100 WBC 0-0 poyy=465) NEUTROPHILS RELATIVE PERCENT (BEAKER) (test 69 % veaj=405) LYMPHOCYTES RELATIVE PERCENT (BEAKER) (test 13 % kqgj=551) MONOCYTES RELATIVE PERCENT (BEAKER) (test 12 % qrmm=945) EOSINOPHILS RELATIVE PERCENT (BEAKER) (test 6 % vizc=042) BASOPHILS RELATIVE PERCENT (BEAKER) (test 1 % nxrc=825) NEUTROPHILS ABSOLUTE COUNT (BEAKER) (test 4.57 K/ L 1.78-5.38 gkhd=114) LYMPHOCYTES ABSOLUTE COUNT (BEAKER) (test 0.84 K/ L 1.32-3.57 oqtl=676) MONOCYTES ABSOLUTE COUNT (BEAKER) (test 0.76 K/ L 0.30-0.82 jlid=834) EOSINOPHILS ABSOLUTE COUNT (BEAKER) (test 0.38 K/ L 0.04-0.54 hiix=819) BASOPHILS ABSOLUTE COUNT (BEAKER) (test 0.05 K/ L 0.01-0.08 atls=589) IMMATURE GRANULOCYTES-RELATIVE PERCENT (BEAKER) 1 % 0-1 (test aluv=7484) URINE [id number] 14:09:00 Test Item Value Reference Range Comments CULTURE (BEAKER) (test ENTEROCOCCUS SPECIES 20-29,000 col/mL tfjw=1352) Enterococcus species Ampicillin (test code=26) Linezolid (test code=40) Nitrofurantoin (test code=23) Tetracycline (test code=2) Vancomycin (test code=13) <10,000 col/mL skin floraCYTOMEGALOVIRUS ANTIBODY, [id number] 15:13:00 Test Item Value Reference Range Comments CYTOMEGALOVIRUS IGM ANTIBODY (BEAKER) (test Negative Negative, Equivocal vjbw=6295) CMV IgM Result Interpretation: </=0.8 Al Negative 0.9-1.0 Al Equivocal >/=1.1 Al PositiveCYTOMEGALOVIRUS ANTIBODY, [id number] 14:29:00 Test Item Value Reference Range Comments CYTOMEGALOVIRUS, IGG (BEAKER) (test jnbm=8495) Negative Negative, Equivocal CMV IgG Result Interpretation: </=0.8 Al Negative 0.9-1.0 Al Equivocal &gt ;/=1.1 Al PositiveEBV ANTIBODY, [id number] 14:29:00 Test Item Value Reference Range Comments DELFIN BOB VIRAL CAPSID ANTIGEN IGG (BEAKER) Positive Negative, Equivocal (test kuie=7015) Delfin Bob Viral Capsid Antigen IgG Result Interpretation: </=0.8 Al Negative 0.9-1.0 Al Equivocal >/=1.1 Al PositiveEBV ANTIBODY, [id number] 14:29:00 Test Item Value Reference Range Comments DELFIN BOB VIRAL CAPSID ANTIGEN IGM (BEAKER) Negative Negative, Equivocal (test qarl=9491) Delfin Bob Viral Capsid Antigen IgM Result Interpretation: </=0.8 Al Negative 0.9-1.0 Al Equivocal >/=1.1 Al [id number] 11:06:00 Test Item Value Reference Range Comments RPR SCREEN (BEAKER) (test dejz=212) Nonreactive Nonreactive VARICELLA ZOSTER ANTIBODY, [id number] 09:46:00 Test Item Value Reference Range Comments VARICELLA ZOSTER IGG (AL) (BEAKER) (test jmgp=0578) 4.5 VARICELLA ZOSTER RESULT INTERPRETATIONS: <=0.8 Al Nonreactive: Presumed non-immune to VZV 0.9-1.0 Al Equivocal >=1.1 Al Reactive: Presumed immune to [id number] 14:12:00 Test Item Value Reference Range Comments PROSTATE SPECIFIC ANTIGEN (BEAKER) (test pkcg=103) 0.4 ng/mL 0.0-4.0 HEPATITIS B SURFACE [id number] 13:35:00 Test Item Value Reference Range Comments HEPATITIS B SURFACE ANTIGEN (2) (BEAKER) (test Nonreactive Nonreactive pyfh=3564) HEPATITIS B SURFACE [id number] 13:35:00 Test Item Value Reference Range Comments HEPATITIS B SURFACE ANTIBODY (BEAKER) (test 114.8 mIU/mL <8.0 kabi=311) HEPATITIS B CORE ANTIBODY, [id number] 13:35:00 Test Item Value Reference Range Comments HEPATITIS B CORE IGM ANTIBODY (BEAKER) (test Nonreactive Nonreactive oakr=060) HEPATITIS C [id number] 13:35:00 Test Item Value Reference Range Comments HEPATITIS C ANTIBODY (BEAKER) (test qjzc=627) Nonreactive Nonreactive HIV-1 ANTIGEN WITH HIV-1/2 [id number] 13:35:00 Test Item Value Reference Range Comments HIV-1 ANTIGEN WITH HIV 1\\T\\2 ANTIBODY (2) Nonreactive Nonreactive (BEAKER) (test cngo=0147) COMPREHENSIVE METABOLIC [id number] 13:24:00 Test Item Value Reference Range Comments TOTAL PROTEIN (BEAKER) 8.0 gm/dL 6.0-8.3 (test unno=213) ALBUMIN (BEAKER) (test 4.1 g/dL 3.5-5.0 hrrw=8734) ALKALINE PHOSPHATASE 143 U/L 40-150 (BEAKER) (test ogpg=633) BILIRUBIN TOTAL (BEAKER) 0.7 mg/dL 0.2-1.2 (test ezwd=786) SODIUM (BEAKER) (test 133 meq/L 136-145 dxpe=458) POTASSIUM (BEAKER) (test 5.3 meq/L 3.5-5.1 oqqf=053) CHLORIDE (BEAKER) (test 93 meq/L 98-107 zkdg=158) CO2 (BEAKER) (test 27 meq/L 22-29 xlxi=278) BLOOD UREA NITROGEN 46 mg/dL 7-21 (BEAKER) (test hait=073) CREATININE (BEAKER) (test 7.16 mg/dL 0.57-1.25 ewio=033) GLUCOSE RANDOM (BEAKER) 181 mg/dL 70-105 (test uibx=974) CALCIUM (BEAKER) (test 9.9 mg/dL 8.4-10.2 kiml=410) AST (SGOT) (BEAKER) (test 10 U/L 5-34 luyd=557) ALT (SGPT) (BEAKER) (test 10 U/L 6-55 dgie=170) EGFR (BEAKER) (test 8 mL/min/1.73 sq m ESTIMATED GFR IS NOT aptm=0589) ACCURATE CREATININE CLEARANCE IN PREDICTING GLOMERULAR FILTRATION RATE. ESTIMATED GFR IS NOT APPLICABLE FOR DIALYSIS PATIENTS. URIC [id number] 13:23:00 Test Item Value Reference Range Comments URIC ACID (BEAKER) (test vpik=218) 3.6 mg/dL 2.6-7.2 [id number] 13:23:00 Test Item Value Reference Range Comments PHOSPHORUS (BEAKER) (test hofk=519) 3.8 mg/dL 2.3-4.7 GAMMA GLUTAMYL TRANSFERASE (GGT)2018-09-11 13:23:00 Test Item Value Reference Range Comments GAMMA GLUTAMYL TRANSFERASE (BEAKER) (test hacv=145) 93 U/L 9-64 LACTATE DEHYDROGENASE (LDH)2018-09-11 13:23:00 Test Item Value Reference Range Comments LACTATE DEHYDROGENASE (BEAKER) (test gcfx=716) 232 U/L 125-220 PTH, [id number] 13:20:00 Test Item Value Reference Range Comments PARATHYROID HORMONE INTACT (BEAKER) (test 258.2 pg/mL 8.5-72.5 nxpq=399) URINALYSIS W/ [id number] 13:17:00 Test Item Value Reference Range Comments COLOR (BEAKER) (test smnz=083) Yellow CLARITY (BEAKER) (test qyqg=995) Hazy SPECIFIC GRAVITY UA (BEAKER) (test lgkc=862) 1.011 1.001-1.035 PH UA (BEAKER) (test hhos=890) 6.5 5.0-8.0 PROTEIN UA (BEAKER) (test abeo=693) 600 mg/dL Negative GLUCOSE UA (BEAKER) (test axlf=921) 500 mg/dL Negative KETONES UA (BEAKER) (test akft=535) Negative Negative BILIRUBIN UA (BEAKER) (test wbkt=227) Negative Negative BLOOD UA (BEAKER) (test aygl=602) Small Negative NITRITE UA (BEAKER) (test ptlx=525) Negative Negative LEUKOCYTE ESTERASE UA (BEAKER) (test tvpt=257) Negative Negative UROBILINOGEN UA (BEAKER) (test gyfa=958) 0.2 mg/dL 0.2-1.0 RBC UA (BEAKER) (test lzyu=553) 11 /HPF WBC UA (BEAKER) (test vzxb=537) 3 /HPF BACTERIA (BEAKER) (test yghv=030) Rare CASTS (BEAKER) (test vadp=3998) 8 /LPF SOURCE(BEAKER) (test folh=5358) PROTHROMBIN [id number] 12:53:00 Test Item Value Reference Range Comments PROTIME (BEAKER) (test vrld=656) 13.9 seconds 11.9-14.2 INR (BEAKER) (test ioez=618) 1.1 <=5.9 Effective 07/03/2018: PT Reference Range ChangeNew: 11.9-14.2 Previous: 11.7- 14.7RECOMMENDED COUMADIN/WARFARIN INR THERAPY RANGESSTANDARD DOSE: 2.0-3.0 Includes: PROPHYLAXIS for venous thrombosis, systemic embolization; TREATMENT for venous thrombosis and/or pulmonary embolus.HIGH RISK: Target INR is2.5-3.5 for patients wiht mechanical heart valves.PT/[id number] 12:53:00 Test Item Value Reference Range Comments PROTIME (BEAKER) (test qzxi=092) 13.9 seconds 11.9-14.2 INR (BEAKER) (test btye=934) 1.1 <=5.9 PARTIAL THROMBOPLASTIN TIME (BEAKER) (test 32.5 seconds 22.5-36.0 fdcy=827) Effective 07/03/2018: PT Reference Range ChangeNew: 11.9-14.2 Previous: 11.7- 14.7RECOMMENDED COUMADIN/WARFARIN INR THERAPY RANGESSTANDARD DOSE: 2.0-3.0 Includes: PROPHYLAXIS for venous thrombosis, systemic embolization; TREATMENT for venous thrombosis and/or pulmonary embolus.HIGH RISK: Target INR is2.5-3.5 for patients wiht mechanical heart valves.CBC W/PLT COUNT & AUTO [id number] 12:46:00 Test Item Value Reference Range Comments WHITE BLOOD CELL COUNT (BEAKER) (test seji=982) 7.1 K/ L 3.5-10.5 RED BLOOD CELL COUNT (BEAKER) (test jzwe=417) 4.42 M/ L 4.63-6.08 HEMOGLOBIN (BEAKER) (test cycs=479) 13.4 GM/DL 13.7-17.5 HEMATOCRIT (BEAKER) (test hhfl=296) 43.1 % 40.1-51.0 MEAN CORPUSCULAR VOLUME (BEAKER) (test wzuw=507) 97.5 fL 79.0-92.2 MEAN CORPUSCULAR HEMOGLOBIN (BEAKER) (test 30.3 pg 25.7-32.2 ymmg=145) MEAN CORPUSCULAR HEMOGLOBIN CONC (BEAKER) (test 31.1 GM/DL 32.3-36.5 ryyp=175) RED CELL DISTRIBUTION WIDTH (BEAKER) (test 13.3 % 11.6-14.4 pepo=316) PLATELET COUNT (BEAKER) (test zpom=716) 150 K/CU MM 150-450 MEAN PLATELET VOLUME (BEAKER) (test rzgh=181) 12.8 fL 9.4-12.4 NUCLEATED RED BLOOD CELLS (BEAKER) (test 0 /100 WBC 0-0 jkjj=367) NEUTROPHILS RELATIVE PERCENT (BEAKER) (test 60 % wcdv=487) LYMPHOCYTES RELATIVE PERCENT (BEAKER) (test 18 % fqzx=056) MONOCYTES RELATIVE PERCENT (BEAKER) (test 12 % rian=435) EOSINOPHILS RELATIVE PERCENT (BEAKER) (test 8 % sewb=123) BASOPHILS RELATIVE PERCENT (BEAKER) (test 1 % ihma=832) NEUTROPHILS ABSOLUTE COUNT (BEAKER) (test 4.28 K/ L 1.78-5.38 maxm=454) LYMPHOCYTES ABSOLUTE COUNT (BEAKER) (test 1.29 K/ L 1.32-3.57 rxtr=966) MONOCYTES ABSOLUTE COUNT (BEAKER) (test 0.84 K/ L 0.30-0.82 wanc=348) EOSINOPHILS ABSOLUTE COUNT (BEAKER) (test 0.55 K/ L 0.04-0.54 khvx=642) BASOPHILS ABSOLUTE COUNT (BEAKER) (test 0.10 K/ L 0.01-0.08 mnvv=596) IMMATURE GRANULOCYTES-RELATIVE PERCENT (BEAKER) 0 % 0-1 (test ofeg=0021) [facility], MULTI, PHARM, [id number] 15:00:00FINAL REPORT PROCEDURE: MYOCARDIAL PERFUSION SPECT IMAGING (Rest/Stress)CPT CODE : [id number] INDICATION: Q 21.1, N 18.6 CARDIOVASCULAR PROFILE:CAD [...] prior study LVEF is now reduced. Signed: iNcolas Kimble MDReport Verified Date/Time: 08/28/2018 15:00: 13 Reading Location: [address] Nuc Med Reading Room CT, CTA AAA, W/ PARKER.EXT.[id number] 17:55:00Addendum BeginsREPORT STATUS:A ADDENDUM: Study reviewed by radiology. Agree with the nonvascular findings as described below. Signed: EmileeAustin MDReport Verified Date/ Time: 06/26/2018 17:55:39 Reading Location: [place] [address] Angio Body Reading RoomAddendum EndsFINAL REPORT CT [...] patent, and no obvious atherosclerosis is present. Seed Service Advisor dimensions of the left and the right external iliac arteries are 4 and 4 mm, respectively. Similarly, the associated pelvic veins are patent with no venous thrombosis identified. Seed Service Advisor dimensions of the left and the right [...] no arterial stenosis or venous thrombosis identified. Seed Service Advisor dimensions of the left and the right external iliac arteries and veins are as described above. 2. Widely patent mesenteric arteries. 3. Status of the peripheral vasculature is as described above. 4. Other findings as described above. 5. An addendum will be dictated regarding the non-vascular findings by the Telephone Order Clerk Radiologist. Signed: Justyn Gilliland MDReport Verified Date/Time: 06/25/2018 10:00:02 Reading Location: [place] [address] Cardiology MRI AFB CULTURE + [id number] 14:21: 00 Test Item Value Reference Range Comments CULTURE (BEAKER) (test No acid-fast bacilli isolated civh=4138) in 42 days AFB SMEAR (BEAKER) (test No acid fast bacilli seen wrgz=878) AFB CULTURE + [id number] 14:21:00 Test Item Value Reference Range Comments CULTURE (BEAKER) (test No acid-fast bacilli isolated schj=4775) in 42 days AFB SMEAR (BEAKER) (test No acid fast bacilli seen gmjz=880) AFB CULTURE + [id number] 14:21:00 Test Item Value Reference Range Comments CULTURE (BEAKER) (test No acid-fast bacilli isolated wfhd=3627) in 42 days AFB SMEAR (BEAKER) (test No acid fast bacilli seen csqf=319) AFB CULTURE + [id number] 14:21:00 Test Item Value Reference Range Comments CULTURE (BEAKER) (test No acid-fast bacilli isolated kbrm=6284) in 42 days AFB SMEAR (BEAKER) (test No acid fast bacilli seen stwv=595) AFB CULTURE + [id number] 14:21:00 Test Item Value Reference Range Comments CULTURE (BEAKER) (test No acid-fast bacilli isolated dxqs=0135) in 42 days AFB SMEAR (BEAKER) (test No acid fast bacilli seen syoq=685) AFB CULTURE + [id number] 14:21:00 Test Item Value Reference Range Comments CULTURE (BEAKER) (test No acid-fast bacilli isolated iglt=6203) in 42 days AFB SMEAR (BEAKER) (test No acid fast bacilli seen ujum=424) AFB CULTURE + [id number] 14:21:00 Test Item Value Reference Range Comments CULTURE (BEAKER) (test No acid-fast bacilli isolated mkoe=8610) in 42 days AFB SMEAR (BEAKER) (test No acid fast bacilli seen euwu=676) AFB CULTURE + [id number] 14:21:00 Test Item Value Reference Range Comments CULTURE (BEAKER) (test No acid-fast bacilli isolated dsqj=7540) in 42 days AFB SMEAR (BEAKER) (test No acid fast bacilli seen vfir=167) FUNGUS CULTURE + [id number] 16:40:00 Test Item Value Reference Range Comments CULTURE (BEAKER) (test No fungus isolated in 28 days nxrw=8663) FUNGUS SMEAR (BEAKER) (test No fungi seen vwnz=9981) FUNGUS CULTURE + [id number] 16:40:00 Test Item Value Reference Range Comments CULTURE (BEAKER) (test No fungus isolated in 28 days lptx=8502) FUNGUS SMEAR (BEAKER) (test No fungi seen nmij=4641) FUNGUS CULTURE + [id number] 16:40:00 Test Item Value Reference Range Comments CULTURE (BEAKER) (test No fungus isolated in 28 days xqww=9716) FUNGUS SMEAR (BEAKER) (test No fungi seen icts=9814) FUNGUS CULTURE + [id number] 16:40:00 Test Item Value Reference Range Comments CULTURE (BEAKER) (test No fungus isolated in 28 days rksw=2252) FUNGUS SMEAR (BEAKER) (test No fungi seen uxkn=5137) FUNGUS CULTURE + [id number] 16:40:00 Test Item Value Reference Range Comments CULTURE (BEAKER) (test No fungus isolated in 28 days hobt=6931) FUNGUS SMEAR (BEAKER) (test No fungi seen wbhd=9105) FUNGUS CULTURE + [id number] 16:40:00 Test Item Value Reference Range Comments CULTURE (BEAKER) (test No fungus isolated in 28 days vkrz=0008) FUNGUS SMEAR (BEAKER) (test No fungi seen ehbh=8773) FUNGUS CULTURE + [id number] 16:40:00 Test Item Value Reference Range Comments CULTURE (BEAKER) (test No fungus isolated in 28 days pxsw=4597) FUNGUS SMEAR (BEAKER) (test No fungi seen vhdt=3073) FUNGUS CULTURE + [id number] 16:40:00 Test Item Value Reference Range Comments CULTURE (BEAKER) (test No fungus isolated in 28 days olvb=7199) FUNGUS SMEAR (BEAKER) (test No fungi seen qtuw=8807) POCT-GLUCOSE [id number] 11:56:00 Test Item Value Reference Range Comments POC-GLUCOSE METER (BEAKER) 247 mg/dL 70-110 TESTED AT [address] (test srwg=0064) [facility] [address] RAD, CHEST, 1 VIEW, NON [id number] 08:39:00Reason for exam:->s/p decorticationShould this be performed [...] MDReport Verified Date/Time: 07/15/2017 08:39:08 Reading Location: [facility] [id number] Ortho Consult Reading Room Electronically signed by: MERVIN CAMPBELL M.D. on 11/2017 08:39 AMPOCT-GLUCOSE [id number] 07:09:00 Test Item Value Reference Range Comments POC-GLUCOSE METER (BEAKER) 271 mg/dL 70-[address] [facility] [address] [facility] (test ioyu=5791) [facility] [address] BASIC METABOLIC [id number] 06:41:00 Test Item Value Reference Range Comments SODIUM (BEAKER) (test 132 meq/L 136-145 skpt=277) POTASSIUM (BEAKER) (test 4.8 meq/L 3.5-5.1 ljqk=696) CHLORIDE (BEAKER) (test 94 meq/L 98-107 tbjo=832) CO2 (BEAKER) (test 28 meq/L 22-29 lugr=885) BLOOD UREA NITROGEN 25 mg/dL 7-21 (BEAKER) (test rfpv=969) CREATININE (BEAKER) (test 3.94 mg/dL 0.57-1.25 ysih=054) GLUCOSE RANDOM (BEAKER) 267 mg/dL 70-105 (test jswj=193) CALCIUM (BEAKER) (test 9.3 mg/dL 8.4-10.2 ummf=844) EGFR (BEAKER) (test 17 mL/min/1.73 sq m ESTIMATED GFR IS NOT fhqj=4743) ACCURATE CREATININE CLEARANCE IN PREDICTING GLOMERULAR FILTRATION RATE. ESTIMATED GFR IS NOT APPLICABLE FOR DIALYSIS PATIENTS. [id number] 06:39:00 Test Item Value Reference Range Comments PHOSPHORUS (BEAKER) (test lmlb=910) 3.2 mg/dL 2.3-4.7 [id number] 06:39:00 Test Item Value Reference Range Comments MAGNESIUM (BEAKER) (test gokg=293) 2.1 mg/dL 1.6-2.6 CBC W/PLT COUNT & AUTO [id number] 06:30:00 Test Item Value Reference Range Comments WHITE BLOOD CELL COUNT (BEAKER) (test opxj=816) 14.5 K/ L 3.5-10.5 RED BLOOD CELL COUNT (BEAKER) (test uxca=774) 3.41 M/ L 4.63-6.08 HEMOGLOBIN (BEAKER) (test woqy=286) 9.2 GM/DL 13.7-17.5 HEMATOCRIT (BEAKER) (test desz=989) 31.3 % 40.1-51.0 MEAN CORPUSCULAR VOLUME (BEAKER) (test smfk=589) 91.8 fL 79.0-92.2 MEAN CORPUSCULAR HEMOGLOBIN (BEAKER) (test 27.0 pg 25.7-32.2 tryy=175) MEAN CORPUSCULAR HEMOGLOBIN CONC (BEAKER) (test 29.4 GM/DL 32.3-36.5 oyag=290) RED CELL DISTRIBUTION WIDTH (BEAKER) (test 19.3 % 11.6-14.4 sbhb=220) PLATELET COUNT (BEAKER) (test fejx=643) 351 K/CU MM 150-450 MEAN PLATELET VOLUME (BEAKER) (test xdeo=019) 11.4 fL 9.4-12.4 NUCLEATED RED BLOOD CELLS (BEAKER) (test 0 /100 WBC 0-0 wgem=220) NEUTROPHILS RELATIVE PERCENT (BEAKER) (test 79 % pxuh=909) LYMPHOCYTES RELATIVE PERCENT (BEAKER) (test 7 % shbv=918) MONOCYTES RELATIVE PERCENT (BEAKER) (test 10 % vhbp=365) EOSINOPHILS RELATIVE PERCENT (BEAKER) (test 3 % zjfo=837) BASOPHILS RELATIVE PERCENT (BEAKER) (test 1 % coac=749) NEUTROPHILS ABSOLUTE COUNT (BEAKER) (test 11.45 K/ L 1.78-5.38 zgit=435) LYMPHOCYTES ABSOLUTE COUNT (BEAKER) (test 0.99 K/ L 1.32-3.57 lpah=266) MONOCYTES ABSOLUTE COUNT (BEAKER) (test 1.44 K/ L 0.30-0.82 lzul=145) EOSINOPHILS ABSOLUTE COUNT (BEAKER) (test 0.41 K/ L 0.04-0.54 tiou=464) BASOPHILS ABSOLUTE COUNT (BEAKER) (test 0.09 K/ L 0.01-0.08 vqrn=821) IMMATURE GRANULOCYTES-RELATIVE PERCENT (BEAKER) 1 % 0-1 (test dasm=6761) [id number] 06:27:00 Test Item Value Reference Range Comments PARTIAL THROMBOPLASTIN TIME (BEAKER) (test 40.2 seconds 22.5-36.0 uhme=962) PROTHROMBIN [id number] 06:26:00 Test Item Value Reference Range Comments PROTIME (BEAKER) (test kbwl=601) 15.2 seconds 11.7-14.7 INR (BEAKER) (test bqiy=818) 1.2 <=5.9 RECOMMENDED COUMADIN/WARFARIN INR THERAPY RANGESSTANDARD DOSE: 2.0 - 3.0 Includes: PROPHYLAXIS forvenous thrombosis, systemic embolization; TREATMENT for venous thrombosis and/or pulmonary embolus.HIGH RISK: Target INR is 2.5-3.5 for patients with mechanical heart valves.POCT-GLUCOSE [id number] 21:34:00 Test Item Value Reference Range Comments POC-GLUCOSE METER (BEAKER) 298 mg/dL 70-110 TESTED AT [address] (test vejx=7648) [place] [id number] POCT-GLUCOSE [id number] 17:38:00 Test Item Value Reference Range Comments POC-GLUCOSE METER (BEAKER) 274 mg/dL 70-110 TESTED AT [address] (test ccpn=2352) [place] [id number] POCT-GLUCOSE [id number] 11:32:00 Test Item Value Reference Range Comments POC-GLUCOSE METER (BEAKER) 143 mg/dL 70-110 TESTED AT [address] (test gwlf=3558) [place] [id number] CBC W/PLT COUNT & AUTO [id number] 10:24:00 Test Item Value Reference Range Comments WHITE BLOOD CELL COUNT (BEAKER) (test wszl=871) 16.9 K/ L 3.5-10.5 RED BLOOD CELL COUNT (BEAKER) (test zwfh=052) 3.27 M/ L 4.63-6.08 HEMOGLOBIN (BEAKER) (test ajrn=213) 8.8 GM/DL 13.7-17.5 HEMATOCRIT (BEAKER) (test ewwd=762) 29.5 % 40.1-51.0 MEAN CORPUSCULAR VOLUME (BEAKER) (test xviu=031) 90.2 fL 79.0-92.2 MEAN CORPUSCULAR HEMOGLOBIN (BEAKER) (test 26.9 pg 25.7-32.2 ggsd=392) MEAN CORPUSCULAR HEMOGLOBIN CONC (BEAKER) (test 29.8 GM/DL 32.3-36.5 grfg=163) RED CELL DISTRIBUTION WIDTH (BEAKER) (test 19.5 % 11.6-14.4 dlar=057) PLATELET COUNT (BEAKER) (test iuwr=879) 360 K/CU MM 150-450 MEAN PLATELET VOLUME (BEAKER) (test yipv=607) 11.6 fL 9.4-12.4 NUCLEATED RED BLOOD CELLS (BEAKER) (test 0 /100 WBC 0-0 yjkh=180) (CELLAVISION MANUAL DIFF)2017-07-14 10:24:00 Test Item Value Reference Range Comments NEUTROPHILS - REL (CELLAVISION)(BEAKER) (test 83 % akgo=5129) LYMPHOCYTES - REL (CELLAVISION)(BEAKER) (test 10 % pzve=6365) MONOCYTES - REL (CELLAVISION)(BEAKER) (test 1 % hmwp=5503) EOSINOPHILS - REL (CELLAVISION)(BEAKER) (test 6 % lecv=5511) NEUTROPHILS - ABS (CELLAVISION)(BEAKER) (test 14.03 K/ul 1.78-5.38 qbfa=0571) LYMPHOCYTES - ABS (CELLAVISION)(BEAKER) (test 1.69 K/ul 1.32-3.57 tnfm=2561) MONOCYTES - ABS (CELLAVISION)(BEAKER) (test 0.17 K/uL 0.30-0.82 xgsi=1436) EOSINOPHILS - ABS (CELLAVISION)(BEAKER) (test 1.01 K/uL 0.04-0.54 hlka=8778) TOTAL COUNTED (BEAKER) (test mnqi=9978) 100 WBC MORPHOLOGY (BEAKER) (test skfi=328) Normal PLT MORPHOLOGY (BEAKER) (test yjnr=334) Normal POLYCHROMATOPHILLIC RBCS(BEAKER) (test jmrw=886) 1+ few ANISOCYTOSIS (BEAKER) (test eqst=293) 1+ few POIKILOCYTES (BEAKER) (test vbkc=191) 1+ few ARTIFACT (CELLAVISION)(BEAKER) (test aanj=0519) Present PLATELET CONCENTRATION (CELLAVISION)(BEAKER) Adequate (test hpby=9279) Received comment: User comments: Slide comments:[id number] 10:05:00 Test Item Value Reference Range Comments PARTIAL THROMBOPLASTIN TIME (BEAKER) (test 42.3 seconds 22.5-36.0 bdhd=170) PROTHROMBIN TIME/[id number] 10:04:00 Test Item Value Reference Range Comments PROTIME (BEAKER) (test ynrh=041) 14.9 seconds 11.7-14.7 INR (BEAKER) (test btos=074) 1.2 <=5.9 RECOMMENDED COUMADIN/WARFARIN INR THERAPY RANGESSTANDARD DOSE: 2.0 - 3.0 Includes: PROPHYLAXIS forvenous thrombosis, systemic embolization; TREATMENT for venous thrombosis and/or pulmonary embolus.HIGH RISK: Target INR is 2.5-3.5 for patients with mechanical heart valves.BASIC METABOLIC [id number] 10:01: 00 Test Item Value Reference Range Comments SODIUM (BEAKER) (test 134 meq/L 136-145 chwv=426) POTASSIUM (BEAKER) (test 4.8 meq/L 3.5-5.1 jjya=968) CHLORIDE (BEAKER) (test 97 meq/L 98-107 jxwk=275) CO2 (BEAKER) (test 25 meq/L 22-29 uueb=023) BLOOD UREA NITROGEN 40 mg/dL 7-21 (BEAKER) (test ceir=914) CREATININE (BEAKER) (test 5.79 mg/dL 0.57-1.25 dkvb=591) GLUCOSE RANDOM (BEAKER) 156 mg/dL 70-105 (test qplm=695) CALCIUM (BEAKER) (test 9.0 mg/dL 8.4-10.2 jvqh=329) EGFR (BEAKER) (test 11 mL/min/1.73 sq m ESTIMATED GFR IS NOT mszx=8362) ACCURATE CREATININE CLEARANCE IN PREDICTING GLOMERULAR FILTRATION RATE. ESTIMATED GFR IS NOT APPLICABLE FOR DIALYSIS PATIENTS. [id number] 09:54:00 Test Item Value Reference Range Comments PHOSPHORUS (BEAKER) (test lomj=743) 2.7 mg/dL 2.3-4.7 [id number] 09:54:00 Test Item Value Reference Range Comments MAGNESIUM (BEAKER) (test juwv=731) 2.1 mg/dL 1.6-2.6 RAD, CHEST, 1 VIEW, NON [id number] 08:55:00Reason for exam:->s/p decorticationShould this be performed [...] MDReport Verified Date/Time: 07/14/2017 08:55:58 Reading Location: [address] Transitional Reading Room POCT-GLUCOSE [id number] 06:57:00 Test Item Value Reference Range Comments POC-GLUCOSE METER (BEAKER) 192 mg/dL 70-110 TESTED AT [address] (test hbgl=4963) [facility] [address] POCT-GLUCOSE [id number] 20:47:00 Test Item Value Reference Range Comments POC-GLUCOSE METER (BEAKER) 210 mg/dL 70-110 TESTED AT [address] (test ulqi=7706) [facility] [address] POCT-GLUCOSE [id number] 17:02:00 Test Item Value Reference Range Comments POC-GLUCOSE METER (BEAKER) 174 mg/dL 70-110 TESTED AT [address] (test elbz=4918) [facility] [address] RAD, CHEST, 1 VIEW, NON [id number] 16:29:00Reason for exam:->s/p right chest tube removalReason [...] MDReport Verified Date/Time: 07/13/2017 16:29:39 Reading Location: [facility] C013 Consult Reading Room POCT-GLUCOSE [id number] 11:30:00 Test Item Value Reference Range Comments POC-GLUCOSE METER (BEAKER) 221 mg/dL 70-110 TESTED AT [address] (test zqfh=8150) [facility] [address] CBC W/PLT COUNT & AUTO [id number] 10:16:00 Test Item Value Reference Range Comments WHITE BLOOD CELL COUNT (BEAKER) (test ovcg=428) 15.0 K/ L 3.5-10.5 RED BLOOD CELL COUNT (BEAKER) (test qlof=190) 3.46 M/ L 4.63-6.08 HEMOGLOBIN (BEAKER) (test oqyi=147) 9.5 GM/DL 13.7-17.5 HEMATOCRIT (BEAKER) (test gfyc=458) 31.6 % 40.1-51.0 MEAN CORPUSCULAR VOLUME (BEAKER) (test jbre=608) 91.3 fL 79.0-92.2 MEAN CORPUSCULAR HEMOGLOBIN (BEAKER) (test 27.5 pg 25.7-32.2 yqbt=905) MEAN CORPUSCULAR HEMOGLOBIN CONC (BEAKER) (test 30.1 GM/DL 32.3-36.5 htrr=056) RED CELL DISTRIBUTION WIDTH (BEAKER) (test 19.9 % 11.6-14.4 pijv=530) PLATELET COUNT (BEAKER) (test hiwk=410) 272 K/CU MM 150-450 MEAN PLATELET VOLUME (BEAKER) (test fcqc=637) 11.1 fL 9.4-12.4 NUCLEATED RED BLOOD CELLS (BEAKER) (test 0 /100 WBC 0-0 ldzz=599) (CELLAVISION MANUAL DIFF)2017-07-13 10:16:00 Test Item Value Reference Range Comments NEUTROPHILS - REL (CELLAVISION)(BEAKER) (test 74 % kdae=7782) LYMPHOCYTES - REL (CELLAVISION)(BEAKER) (test 6 % jqxb=6717) MONOCYTES - REL (CELLAVISION)(BEAKER) (test 12 % xgrl=1896) EOSINOPHILS - REL (CELLAVISION)(BEAKER) (test 6 % zrri=7228) BASOPHILS - REL (CELLAVISION)(BEAKER) (test 1 % vkqf=7045) BANDS - REL (CELLAVISION)(BEAKER) (test 1 % 0-10 mfcv=4793) NEUTROPHILS - ABS (CELLAVISION)(BEAKER) (test 11.10 K/ul 1.78-5.38 jkut=2032) LYMPHOCYTES - ABS (CELLAVISION)(BEAKER) (test 0.90 K/ul 1.32-3.57 wfhd=2287) MONOCYTES - ABS (CELLAVISION)(BEAKER) (test 1.80 K/uL 0.30-0.82 hiit=5834) EOSINOPHILS - ABS (CELLAVISION)(BEAKER) (test 0.90 K/uL 0.04-0.54 hfey=5678) BASOPHILS - ABS (CELLAVISION)(BEAKER) (test 0.15 K/uL 0.01-0.08 ilfv=9588) BANDS - ABS (CELLAVISION)(BEAKER) (test 0.15 K/uL 0.00-0.80 sxwg=6123) TOTAL COUNTED (BEAKER) (test vufx=7898) 100 WBC MORPHOLOGY (BEAKER) (test oigz=242) Normal LARGE PLT(BEAKER) (test mwwo=3912) Present POLYCHROMATOPHILLIC RBCS(BEAKER) (test jpne=024) 1+ few BASOPHILIC STIPPLING (BEAKER) (test cqrr=203) Present ARTIFACT (CELLAVISION)(BEAKER) (test tbrm=2776) Present PLATELET CONCENTRATION (CELLAVISION)(BEAKER) Adequate (test mfpk=6108) Received comment: User comments: Slide comments:RAD, CHEST, 1 VIEW, NON [id number] 07:39:00Reason for exam:->s/p decorticationShould this be [...] MDReport Verified Date/Time: 07/13/2017 07:39:01 Reading Location: [facility] Radiology Reading Room Electronically signed by: ALEXIS DESAI M.D. on 2017 07:39 AMPOCT-GLUCOSE [id number] 07:09:00 Test Item Value Reference Range Comments POC-GLUCOSE METER (BEAKER) 162 mg/dL 70-[address] [facility] [address] [place] [address] (test bxtg=3156) [facility] [address] BASIC METABOLIC [id number] 06:27:00 Test Item Value Reference Range Comments SODIUM (BEAKER) (test 134 meq/L 136-145 xrwc=808) POTASSIUM (BEAKER) (test 4.3 meq/L 3.5-5.1 jzro=712) CHLORIDE (BEAKER) (test 98 meq/L 98-107 srzu=889) CO2 (BEAKER) (test 26 meq/L 22-29 awts=757) BLOOD UREA NITROGEN 20 mg/dL 7-21 (BEAKER) (test wojh=020) CREATININE (BEAKER) (test 3.19 mg/dL 0.57-1.25 pkju=402) GLUCOSE RANDOM (BEAKER) 189 mg/dL 70-105 (test cqcv=696) CALCIUM (BEAKER) (test 8.6 mg/dL 8.4-10.2 qwwr=996) EGFR (BEAKER) (test 22 mL/min/1.73 sq m ESTIMATED GFR IS NOT vggc=0313) ACCURATE CREATININE CLEARANCE IN PREDICTING GLOMERULAR FILTRATION RATE. ESTIMATED GFR IS NOT APPLICABLE FOR DIALYSIS PATIENTS. [id number] 05:45:00 Test Item Value Reference Range Comments PHOSPHORUS (BEAKER) (test kphn=680) 2.4 mg/dL 2.3-4.7 [id number] 05:45:00 Test Item Value Reference Range Comments MAGNESIUM (BEAKER) (test kfsc=537) 2.2 mg/dL 1.6-2.6 [id number] 05:21:00 Test Item Value Reference Range Comments PARTIAL THROMBOPLASTIN TIME (BEAKER) (test 44.8 seconds 22.5-36.0 lvpt=677) PROTHROMBIN [id number] 05:20:00 Test Item Value Reference Range Comments PROTIME (BEAKER) (test jmlb=597) 15.6 seconds 11.7-14.7 INR (BEAKER) (test dvxz=741) 1.2 <=5.9 RECOMMENDED COUMADIN/WARFARIN INR THERAPY RANGESSTANDARD DOSE: 2.0 - 3.0 Includes: PROPHYLAXIS forvenous thrombosis, systemic embolization; TREATMENT for venous thrombosis and/or pulmonary embolus.HIGH RISK: Target INR is 2.5-3.5 for patients with mechanical heart valves.POCT-GLUCOSE [id number] 21:30:00 Test Item Value Reference Range Comments POC-GLUCOSE METER (BEAKER) 366 mg/dL 70-110 Will Repeat Test/TESTED AT (test xicd=2543) [facility] [address] [facility] [address] POCT-GLUCOSE [id number] 17:57:00 Test Item Value Reference Range Comments POC-GLUCOSE METER (BEAKER) 122 mg/dL 70-110 TESTED AT [address] (test yblt=6199) [facility] [address] RAD, CHEST, 1 VIEW, NON [id number] 12:57:00Reason for exam:->R CT clampedShould this be [...] MDReport Verified Date/Time: 07/12/2017 12:57:51 Reading Location: [facility] Radiology Reading Room POCT-GLUCOSE [id number] 11:39:00 Test Item Value Reference Range Comments POC-GLUCOSE METER (BEAKER) 81 mg/dL 70-110 TESTED AT [address] (test gubl=5424) [facility] [address] RAD, CHEST, 1 VIEW, NON [id number] 08:57:00Reason for exam:->s/p decorticationShould this be performed [...] MDReport Verified Date/Time: 07/12/2017 08:57:27 Reading Location: [facility] Radiology Reading Room Electronically signed by: ALEXIS DESAI M.D. on07/12/2017 08:57 AMPOCT-GLUCOSE [id number] 07:03:00 Test Item Value Reference Range Comments POC-GLUCOSE METER (BEAKER) 165 mg/dL 70-110 TESTED AT [address] (test tzdf=5435) [facility] [address] BASIC METABOLIC [id number] 05:10:00 Test Item Value Reference Range Comments SODIUM (BEAKER) (test 134 meq/L 136-145 yixz=077) POTASSIUM (BEAKER) (test 4.2 meq/L 3.5-5.1 pzqn=553) CHLORIDE (BEAKER) (test 99 meq/L 98-107 hyyy=428) CO2 (BEAKER) (test 25 meq/L 22-29 mvsl=747) BLOOD UREA NITROGEN 29 mg/dL 7-21 (BEAKER) (test trgp=568) CREATININE (BEAKER) (test 4.75 mg/dL 0.57-1.25 xjrb=477) GLUCOSE RANDOM (BEAKER) 79 mg/dL 70-105 (test wehs=007) CALCIUM (BEAKER) (test 9.3 mg/dL 8.4-10.2 qrug=013) EGFR (BEAKER) (test 14 mL/min/1.73 sq m ESTIMATED GFR IS NOT mesq=2597) ACCURATE CREATININE CLEARANCE IN PREDICTING GLOMERULAR FILTRATION RATE. ESTIMATED GFR IS NOT APPLICABLE FOR DIALYSIS PATIENTS. PROTHROMBIN TIME/[id number] 05:02:00 Test Item Value Reference Range Comments PROTIME (BEAKER) (test ognx=222) 15.7 seconds 11.7-14.7 INR (BEAKER) (test mkph=472) 1.3 <=5.9 RECOMMENDED COUMADIN/WARFARIN INR THERAPY RANGESSTANDARD DOSE: 2.0 - 3.0 Includes: PROPHYLAXIS forvenous thrombosis, systemic embolization; TREATMENT for venous thrombosis and/or pulmonary embolus.HIGH RISK: Target INR is 2.5-3.5 for patients with mechanical heart valves.[id number] 05:02:00 Test Item Value Reference Range Comments PARTIAL THROMBOPLASTIN TIME (BEAKER) (test 45.4 seconds 22.5-36.0 njqe=485) [id number] 04:50:00 Test Item Value Reference Range Comments PHOSPHORUS (BEAKER) (test qwji=000) 2.1 mg/dL 2.3-4.7 [id number] 04:50:00 Test Item Value Reference Range Comments MAGNESIUM (BEAKER) (test gcqp=518) 2.2 mg/dL 1.6-2.6 CBC W/PLT COUNT & AUTO [id number] 04:47:00 Test Item Value Reference Range Comments WHITE BLOOD CELL COUNT (BEAKER) (test gufw=320) 15.4 K/ L 3.5-10.5 RED BLOOD CELL COUNT (BEAKER) (test uzaz=534) 3.74 M/ L 4.63-6.08 HEMOGLOBIN (BEAKER) (test zlmz=149) 10.0 GM/DL 13.7-17.5 HEMATOCRIT (BEAKER) (test hdmq=275) 34.1 % 40.1-51.0 MEAN CORPUSCULAR VOLUME (BEAKER) (test dcsx=241) 91.2 fL 79.0-92.2 MEAN CORPUSCULAR HEMOGLOBIN (BEAKER) (test 26.7 pg 25.7-32.2 zsyi=740) MEAN CORPUSCULAR HEMOGLOBIN CONC (BEAKER) (test 29.3 GM/DL 32.3-36.5 bpbh=608) RED CELL DISTRIBUTION WIDTH (BEAKER) (test 19.3 % 11.6-14.4 mfui=530) PLATELET COUNT (BEAKER) (test eeyy=359) 278 K/CU MM 150-450 MEAN PLATELET VOLUME (BEAKER) (test hwxp=888) 11.4 fL 9.4-12.4 NUCLEATED RED BLOOD CELLS (BEAKER) (test 0 /100 WBC 0-0 svra=678) NEUTROPHILS RELATIVE PERCENT (BEAKER) (test 74 % lhdu=655) LYMPHOCYTES RELATIVE PERCENT (BEAKER) (test 8 % ostr=778) MONOCYTES RELATIVE PERCENT (BEAKER) (test 11 % urmr=744) EOSINOPHILS RELATIVE PERCENT (BEAKER) (test 5 % kxgt=198) BASOPHILS RELATIVE PERCENT (BEAKER) (test 0 % xhzj=950) NEUTROPHILS ABSOLUTE COUNT (BEAKER) (test 11.48 K/ L 1.78-5.38 vxmt=289) LYMPHOCYTES ABSOLUTE COUNT (BEAKER) (test 1.22 K/ L 1.32-3.57 ievw=524) MONOCYTES ABSOLUTE COUNT (BEAKER) (test 1.68 K/ L 0.30-0.82 kclj=070) EOSINOPHILS ABSOLUTE COUNT (BEAKER) (test 0.73 K/ L 0.04-0.54 cikl=829) BASOPHILS ABSOLUTE COUNT (BEAKER) (test 0.06 K/ L 0.01-0.08 iavt=980) IMMATURE GRANULOCYTES-RELATIVE PERCENT (BEAKER) 2 % 0-1 (test lweg=9075) POCT-GLUCOSE [id number] 21:09:00 Test Item Value Reference Range Comments POC-GLUCOSE METER (BEAKER) 162 mg/dL 70-110 TESTED AT [address] (test nlwi=7082) [facility] [address] POCT-GLUCOSE [id number] 16:53:00 Test Item Value Reference Range Comments POC-GLUCOSE METER (BEAKER) 222 mg/dL 70-110 TESTED AT [address] (test rlvy=4955) [facility] [address] POCT-GLUCOSE [id number] 15:26:00 Test Item Value Reference Range Comments POC-GLUCOSE METER (BEAKER) 141 mg/dL 70-110 TESTED AT [address] (test ecub=1635) [facility] [address] POCT-GLUCOSE [id number] 15:04:00 Test Item Value Reference Range Comments POC-GLUCOSE METER (BEAKER) 49 mg/dL 70-110 Notified PERLA BARROW/TESTED AT [facility] (test klsx=5943) [address] [place] [address] RAD, CHEST, 1 VIEW, NON [id number] 13:07:00Reason for exam:->CT removalShould this be performed [...] Ramirezepvictoria Verified Date/Time: 07/11/2017 13:07:52 Reading Location: [facility] Reading Room POCT-GLUCOSE [id number] 11:48:00 Test Item Value Reference Range Comments POC-GLUCOSE METER (BEAKER) 166 mg/dL 70-[address] [facility] [address] [facility] (test zoxg=4800) [facility] [address] RAD, CHEST, 1 VIEW, NON [id number] 08:04:00Reason for exam:->s/p decorticationShould this be performed [...] MDReport Verified Date/Time: 07/11/2017 08:04:08 Reading Location: [facility] Radiology Reading Room Electronically signed by: ALEXIS DESAI M.D. on 2017 08:04 AMPOCT-GLUCOSE [id number] 07:31:00 Test Item Value Reference Range Comments POC-GLUCOSE METER (BEAKER) 144 mg/dL 70-110 TESTED AT [address] (test nyus=0595) [place] [address] [id number] 06:13:00 Test Item Value Reference Range Comments PHOSPHORUS (BEAKER) (test ihjv=499) 1.7 mg/dL 2.3-4.7 [id number] 06:13:00 Test Item Value Reference Range Comments MAGNESIUM (BEAKER) (test lbcg=102) 2.2 mg/dL 1.6-2.6 BASIC METABOLIC [id number] 06:13:00 Test Item Value Reference Range Comments SODIUM (BEAKER) (test 138 meq/L 136-145 twyy=665) POTASSIUM (BEAKER) (test 3.5 meq/L 3.5-5.1 unys=087) CHLORIDE (BEAKER) (test 100 meq/L 98-107 jbne=068) CO2 (BEAKER) (test 28 meq/L 22-29 symr=843) BLOOD UREA NITROGEN 15 mg/dL 7-21 (BEAKER) (test bimd=709) CREATININE (BEAKER) (test 2.76 mg/dL 0.57-1.25 bcfs=449) GLUCOSE RANDOM (BEAKER) 42 mg/dL 70-105 (test tknm=309) CALCIUM (BEAKER) (test 9.4 mg/dL 8.4-10.2 rwvo=214) EGFR (BEAKER) (test 26 mL/min/1.73 sq m ESTIMATED GFR IS NOT pdil=1528) ACCURATE CREATININE CLEARANCE IN PREDICTING GLOMERULAR FILTRATION RATE. ESTIMATED GFR IS NOT APPLICABLE FOR DIALYSIS PATIENTS. POCT-GLUCOSE [id number] 06:02:00 Test Item Value Reference Range Comments POC-GLUCOSE METER (BEAKER) 94 mg/dL 70-[address] [facility] [address] [facility] (test atwc=2228) [facility] [address] [id number] 06:01:00 Test Item Value Reference Range Comments PARTIAL THROMBOPLASTIN TIME (BEAKER) (test 33.5 seconds 22.5-36.0 woec=012) PROTHROMBIN [id number] 06:00:00 Test Item Value Reference Range Comments PROTIME (BEAKER) (test gzjy=177) 15.9 seconds 11.7-14.7 INR (BEAKER) (test gizz=230) 1.3 <=5.9 RECOMMENDED COUMADIN/WARFARIN INR THERAPY RANGESSTANDARD DOSE: 2.0 - 3.0 Includes: PROPHYLAXIS forvenous thrombosis, systemic embolization; TREATMENT for venous thrombosis and/or pulmonary embolus.HIGH RISK: Target INR is 2.5-3.5 for patients with mechanical heart valves.CBC W/PLT COUNT & AUTO [id number] 05:55:00 Test Item Value Reference Range Comments WHITE BLOOD CELL COUNT (BEAKER) (test bxov=725) 14.7 K/ L 3.5-10.5 RED BLOOD CELL COUNT (BEAKER) (test xcbc=727) 3.90 M/ L 4.63-6.08 HEMOGLOBIN (BEAKER) (test oegd=086) 10.3 GM/DL 13.7-17.5 HEMATOCRIT (BEAKER) (test rbey=372) 33.9 % 40.1-51.0 MEAN CORPUSCULAR VOLUME (BEAKER) (test zymd=411) 86.9 fL 79.0-92.2 MEAN CORPUSCULAR HEMOGLOBIN (BEAKER) (test 26.4 pg 25.7-32.2 imlh=367) MEAN CORPUSCULAR HEMOGLOBIN CONC (BEAKER) (test 30.4 GM/DL 32.3-36.5 ixld=836) RED CELL DISTRIBUTION WIDTH (BEAKER) (test 18.6 % 11.6-14.4 ysdn=992) PLATELET COUNT (BEAKER) (test pshc=613) 238 K/CU MM 150-450 MEAN PLATELET VOLUME (BEAKER) (test arom=406) 10.4 fL 9.4-12.4 NUCLEATED RED BLOOD CELLS (BEAKER) (test 0 /100 WBC 0-0 ifpn=700) NEUTROPHILS RELATIVE PERCENT (BEAKER) (test 72 % jscf=180) LYMPHOCYTES RELATIVE PERCENT (BEAKER) (test 6 % ckro=225) MONOCYTES RELATIVE PERCENT (BEAKER) (test 14 % qala=694) EOSINOPHILS RELATIVE PERCENT (BEAKER) (test 5 % nfez=147) BASOPHILS RELATIVE PERCENT (BEAKER) (test 1 % mngj=154) NEUTROPHILS ABSOLUTE COUNT (BEAKER) (test 10.56 K/ L 1.78-5.38 zlix=599) LYMPHOCYTES ABSOLUTE COUNT (BEAKER) (test 0.94 K/ L 1.32-3.57 kphf=293) MONOCYTES ABSOLUTE COUNT (BEAKER) (test 2.03 K/ L 0.30-0.82 ctef=270) EOSINOPHILS ABSOLUTE COUNT (BEAKER) (test 0.76 K/ L 0.04-0.54 zdkn=358) BASOPHILS ABSOLUTE COUNT (BEAKER) (test 0.07 K/ L 0.01-0.08 dkyd=295) IMMATURE GRANULOCYTES-RELATIVE PERCENT (BEAKER) 2 % 0-1 (test asmp=0749) POCT-GLUCOSE [id number] 05:36:00 Test Item Value Reference Range Comments POC-GLUCOSE METER (BEAKER) 37 mg/dL 70-[address] [facility] [address] (test xkrx=6869) [facility] [address] POCT-GLUCOSE [id number] 22:37:00 Test Item Value Reference Range Comments POC-GLUCOSE METER (BEAKER) 136 mg/dL 70-110 TESTED AT [address] (test gllg=6062) [place] [id number] BLOOD [id number] 18:00:00 Test Item Value Reference Range Comments CULTURE (BEAKER) (test looa=8666) No growth in 5 days POCT-GLUCOSE [id number] 17:39:00 Test Item Value Reference Range Comments POC-GLUCOSE METER (BEAKER) 184 mg/dL 70-110 TESTED AT [address] (test vbde=0370) [place] [address] RAD, CHEST, 1 VIEW, NON [id number] 13:48:00Reason for exam:->s/p L ct removalShould this [...] :48:20 Reading Location: [facility] Radiology Reading Room POCT-GLUCOSE [id number] 13 :19:00 Test Item Value Reference Range Comments POC-GLUCOSE METER (BEAKER) 193 mg/dL 70-110 TESTED AT [address] (test jzcn=7630) [place] [address] POCT-GLUCOSE [id number] 08:50:00 Test Item Value Reference Range Comments POC-GLUCOSE METER (BEAKER) 136 mg/dL 70-110 TESTED AT [address] (test jpql=7757) [place] [address] PROTHROMBIN [id number] 04:55:00 Test Item Value Reference Range Comments PROTIME (BEAKER) (test ajgo=062) 14.7 seconds 11.7-14.7 INR (BEAKER) (test vhtb=946) 1.2 <=5.9 RECOMMENDED COUMADIN/WARFARIN INR THERAPY RANGESSTANDARD DOSE: 2.0 - 3.0 Includes: PROPHYLAXIS forvenous thrombosis, systemic embolization; TREATMENT for venous thrombosis and/or pulmonary embolus.HIGH RISK: Target INR is 2.5-3.5 for patients with mechanical heart valves.[id number] 04:55:00 Test Item Value Reference Range Comments PARTIAL THROMBOPLASTIN TIME (BEAKER) (test 36.2 seconds 22.5-36.0 mngb=502) RAD, CHEST, 1 VIEW, NON [id number] 04:43:00Reason for exam:->s/p decorticationShould this be performed at the bedside?->YesFINAL REPORT Comparison exam: 07/09/2017 Medium-sized right pneumothorax, new when compared to the prior exam. This finding was called to the patient's nurse Lilia on 07/10/2017at 4:40 AM. She will contact the patient's physician. Stable cardiomediastinal contours. Appropriate position of the support hardware. Signed: Jamar Ley MDReport Verified Date/Time : 07/10/2017 04:43:24 Reading Location: [address] Reading Room BASIC METABOLIC [id number] 04:42:00 Test Item Value Reference Range Comments SODIUM (BEAKER) (test 128 meq/L 136-145 zbte=844) POTASSIUM (BEAKER) (test 4.9 meq/L 3.5-5.1 vmyy=854) CHLORIDE (BEAKER) (test 95 meq/L 98-107 vgfy=203) CO2 (BEAKER) (test 18 meq/L 22-29 jkmn=007) BLOOD UREA NITROGEN 57 mg/dL 7-21 (BEAKER) (test adyw=545) CREATININE (BEAKER) (test 6.01 mg/dL 0.57-1.25 xjge=249) GLUCOSE RANDOM (BEAKER) 172 mg/dL 70-105 (test dudg=110) CALCIUM (BEAKER) (test 9.4 mg/dL 8.4-10.2 vcqb=228) EGFR (BEAKER) (test 10 mL/min/1.73 sq m ESTIMATED GFR IS NOT udre=8881) ACCURATE CREATININE CLEARANCE IN PREDICTING GLOMERULAR FILTRATION RATE. ESTIMATED GFR IS NOT APPLICABLE FOR DIALYSIS PATIENTS. Check Serum Phosphorus level 4 hours after IV phosphorus replacement or 8 hours after PO replacementcompleted.[id number] 04:40:00 Test Item Value Reference Range Comments PHOSPHORUS (BEAKER) (test xqhw=277) 3.9 mg/dL 2.3-4.7 Check Serum Phosphorus level 4 hours after IV phosphorus replacement or 8 hours after PO replacementcompleted.[id number] 04:40:00 Test Item Value Reference Range Comments MAGNESIUM (BEAKER) (test wkjx=115) 2.6 mg/dL 1.6-2.6 Check Serum Phosphorus level 4 hours after IV phosphorus replacement or 8 hours after PO replacementcompleted.CBC W/PLT COUNT & AUTO [id number] 04:31:00 Test Item Value Reference Range Comments WHITE BLOOD CELL COUNT (BEAKER) (test ldjq=010) 16.7 K/ L 3.5-10.5 RED BLOOD CELL COUNT (BEAKER) (test whwm=314) 3.62 M/ L 4.63-6.08 HEMOGLOBIN (BEAKER) (test evow=608) 9.9 GM/DL 13.7-17.5 HEMATOCRIT (BEAKER) (test bdln=220) 33.2 % 40.1-51.0 MEAN CORPUSCULAR VOLUME (BEAKER) (test ufwz=514) 91.7 fL 79.0-92.2 MEAN CORPUSCULAR HEMOGLOBIN (BEAKER) (test 27.3 pg 25.7-32.2 ntxz=850) MEAN CORPUSCULAR HEMOGLOBIN CONC (BEAKER) (test 29.8 GM/DL 32.3-36.5 aeay=210) RED CELL DISTRIBUTION WIDTH (BEAKER) (test 17.6 % 11.6-14.4 tclc=153) PLATELET COUNT (BEAKER) (test arpw=935) 230 K/CU MM 150-450 MEAN PLATELET VOLUME (BEAKER) (test dhas=696) 10.8 fL 9.4-12.4 NUCLEATED RED BLOOD CELLS (BEAKER) (test 0 /100 WBC 0-0 prjj=272) NEUTROPHILS RELATIVE PERCENT (BEAKER) (test 70 % uuvt=658) LYMPHOCYTES RELATIVE PERCENT (BEAKER) (test 10 % rtpl=543) MONOCYTES RELATIVE PERCENT (BEAKER) (test 12 % peoq=153) EOSINOPHILS RELATIVE PERCENT (BEAKER) (test 5 % fupm=503) BASOPHILS RELATIVE PERCENT (BEAKER) (test 0 % pevd=925) NEUTROPHILS ABSOLUTE COUNT (BEAKER) (test 11.68 K/ L 1.78-5.38 qbzb=076) LYMPHOCYTES ABSOLUTE COUNT (BEAKER) (test 1.68 K/ L 1.32-3.57 sxzr=385) MONOCYTES ABSOLUTE COUNT (BEAKER) (test 1.97 K/ L 0.30-0.82 ibok=834) EOSINOPHILS ABSOLUTE COUNT (BEAKER) (test 0.75 K/ L 0.04-0.54 vjmz=024) BASOPHILS ABSOLUTE COUNT (BEAKER) (test 0.07 K/ L 0.01-0.08 brhr=605) IMMATURE GRANULOCYTES-RELATIVE PERCENT (BEAKER) 4 % 0-1 (test puus=6889) POCT-GLUCOSE [id number] 23:54:00 Test Item Value Reference Range Comments POC-GLUCOSE METER (BEAKER) 446 mg/dL 70-110 TESTED AT [address] (test vhhj=9839) [place] [id number] POCT-GLUCOSE [id number] 21:41:00 Test Item Value Reference Range Comments POC-GLUCOSE METER (BEAKER) 320 mg/dL 70-110 TESTED AT [address] (test kiba=4789) [place] [id number] POCT-GLUCOSE [id number] 18:09:00 Test Item Value Reference Range Comments POC-GLUCOSE METER (BEAKER) 320 mg/dL 70-110 Notified PERLA BARROW/TESTED AT [facility] (test zpfe=1533) [address] [place], [place] [id number] RAD, CHEST, 1 VIEW, NON [id number] 14:03:00Reason for exam:->CT removalShould this be performed [...] MDReport Verified Date/Time: 07/09/2017 14:03:19 Reading Location: [facility] Radiology Reading Room Electronically signed by: ALEXIS DESAI M.D. on 2017 02:03 PMCBC W/PLT COUNT & AUTO [id number] 11:17:00 Test Item Value Reference Range Comments WHITE BLOOD CELL COUNT (BEAKER) (test imir=734) 15.2 K/ L 3.5-10.5 RED BLOOD CELL COUNT (BEAKER) (test juak=067) 3.31 M/ L 4.63-6.08 HEMOGLOBIN (BEAKER) (test ghve=846) 8.9 GM/DL 13.7-17.5 HEMATOCRIT (BEAKER) (test ylgw=605) 29.2 % 40.1-51.0 MEAN CORPUSCULAR VOLUME (BEAKER) (test fbzi=596) 88.2 fL 79.0-92.2 MEAN CORPUSCULAR HEMOGLOBIN (BEAKER) (test 26.9 pg 25.7-32.2 ercs=040) MEAN CORPUSCULAR HEMOGLOBIN CONC (BEAKER) (test 30.5 GM/DL 32.3-36.5 nqne=551) RED CELL DISTRIBUTION WIDTH (BEAKER) (test 17.0 % 11.6-14.4 drbs=664) PLATELET COUNT (BEAKER) (test pbxz=671) 234 K/CU MM 150-450 MEAN PLATELET VOLUME (BEAKER) (test fdbq=029) 11.0 fL 9.4-12.4 NUCLEATED RED BLOOD CELLS (BEAKER) (test 0 /100 WBC 0-0 vhga=185) RAD, CHEST, 1 VIEW, NON [id number] 07:40:00Reason for exam:->s/p decorticationShould this be performed [...] MDReport Verified Date/Time: 07/09/2017 07:40:46 Reading Location: [facility] Radiology Reading Room BLOOD GAS, [id number] 06:35:00 Test Item Value Reference Range Comments PH ARTERIAL (BEAKER) (test emcy=597) 7.36 7.35-7.45 PCO2 ARTERIAL (BEAKER) (test mkim=354) 46 mmHg 35-45 PO2 ARTERIAL (BEAKER) (test cpgl=899) 156 mmHg 80-90 O2 SATURATION ARTERIAL (BEAKER) (test mywz=830) 98.9 % 96.0-97.0 HCO3 ARTERIAL (BEAKER) (test kmkr=172) 25 mmol/L 21-29 BASE EXCESS ARTERIAL (BEAKER) (test mejd=789) -0.8 mmol/L -2.0-3.0 PATIENT TEMPERATURE (BEAKER) (test qzgz=4822) 37.0 C FIO2 (BEAKER) (test turt=0813) 24.0 % [id number] 05:56:00 Test Item Value Reference Range Comments PREALBUMIN (BEAKER) (test xord=232) 12 mg/dL 14-45 PROTHROMBIN TIME/[id number] 05:41:00 Test Item Value Reference Range Comments PROTIME (BEAKER) (test hkuu=518) 15.3 seconds 11.7-14.7 INR (BEAKER) (test bhmm=835) 1.2 <=5.9 RECOMMENDED COUMADIN/WARFARIN INR THERAPY RANGESSTANDARD DOSE: 2.0 - 3.0 Includes: PROPHYLAXIS forvenous thrombosis, systemic embolization; TREATMENT for venous thrombosis and/or pulmonary embolus.HIGH RISK: Target INR is 2.5-3.5 for patients with mechanical heart valves.[id number] 05:41:00 Test Item Value Reference Range Comments PARTIAL THROMBOPLASTIN TIME (BEAKER) (test 47.6 seconds 22.5-36.0 ucut=598) BASIC METABOLIC [id number] 05:37:00 Test Item Value Reference Range Comments SODIUM (BEAKER) (test 129 meq/L 136-145 quun=852) POTASSIUM (BEAKER) (test 4.7 meq/L 3.5-5.1 zjag=341) CHLORIDE (BEAKER) (test 95 meq/L 98-107 chgq=258) CO2 (BEAKER) (test 22 meq/L 22-29 lrhh=774) BLOOD UREA NITROGEN 41 mg/dL 7-21 (BEAKER) (test vovg=776) CREATININE (BEAKER) (test 4.66 mg/dL 0.57-1.25 miev=086) GLUCOSE RANDOM (BEAKER) 305 mg/dL 70-105 (test bcig=897) CALCIUM (BEAKER) (test 9.1 mg/dL 8.4-10.2 bgdv=803) EGFR (BEAKER) (test 14 mL/min/1.73 sq m ESTIMATED GFR IS NOT hbak=2617) ACCURATE CREATININE CLEARANCE IN PREDICTING GLOMERULAR FILTRATION RATE. ESTIMATED GFR IS NOT APPLICABLE FOR DIALYSIS PATIENTS. PROTEIN, [id number] 05:36:00 Test Item Value Reference Range Comments TOTAL PROTEIN (BEAKER) (test yozp=796) 5.9 gm/dL 6.0-8.3 [id number] 05:36:00 Test Item Value Reference Range Comments MAGNESIUM (BEAKER) (test bmva=604) 2.5 mg/dL 1.6-2.6 [id number] 05:36:00 Test Item Value Reference Range Comments PHOSPHORUS (BEAKER) (test csya=850) 3.6 mg/dL 2.3-4.7 [id number] 05:36:00 Test Item Value Reference Range Comments ALBUMIN (BEAKER) (test ulcg=9771) 2.6 g/dL 3.5-5.0 POCT-GLUCOSE [id number] 21:11:00 Test Item Value Reference Range Comments POC-GLUCOSE METER (BEAKER) 411 mg/dL 70-110 Notified PERLA BARROW/TESTED AT [facility] (test uvvp=4557) [address] [place] [address] POCT-GLUCOSE [id number] 17:23:00 Test Item Value Reference Range Comments POC-GLUCOSE METER (BEAKER) 277 mg/dL 70-110 TESTED AT [address] (test yfsc=9762) [facility] [address] [id number] 15:36:00 Test Item Value Reference Range Comments MAGNESIUM (BEAKER) (test fjea=644) 2.6 mg/dL 1.6-2.6 CBC W/PLT COUNT & AUTO [id number] 12:20:00 Test Item Value Reference Range Comments WHITE BLOOD CELL COUNT (BEAKER) (test jhpb=736) 13.6 K/ L 3.5-10.5 RED BLOOD CELL COUNT (BEAKER) (test pikw=856) 3.38 M/ L 4.63-6.08 HEMOGLOBIN (BEAKER) (test dzca=627) 9.0 GM/DL 13.7-17.5 HEMATOCRIT (BEAKER) (test tghu=675) 29.9 % 40.1-51.0 MEAN CORPUSCULAR VOLUME (BEAKER) (test rtiu=586) 88.5 fL 79.0-92.2 MEAN CORPUSCULAR HEMOGLOBIN (BEAKER) (test 26.6 pg 25.7-32.2 hnaz=141) MEAN CORPUSCULAR HEMOGLOBIN CONC (BEAKER) (test 30.1 GM/DL 32.3-36.5 bsau=783) RED CELL DISTRIBUTION WIDTH (BEAKER) (test 16.8 % 11.6-14.4 wygs=524) PLATELET COUNT (BEAKER) (test bnwm=285) 213 K/CU MM 150-450 MEAN PLATELET VOLUME (BEAKER) (test tobi=377) 10.7 fL 9.4-12.4 NUCLEATED RED BLOOD CELLS (BEAKER) (test 0 /100 WBC 0-0 shgv=648) POCT-GLUCOSE [id number] 11:48:00 Test Item Value Reference Range Comments POC-GLUCOSE METER (BEAKER) 255 mg/dL 70-110 TESTED AT [address] (test jpoy=3509) [facility] [address] POCT-GLUCOSE [id number] 08:25:00 Test Item Value Reference Range Comments POC-GLUCOSE METER (BEAKER) 307 mg/dL 70-110 Notified PERLA BARROW/TESTED AT [facility] (test skfm=9738) [address] [place] [address] BLOOD GAS, [id number] 05:27:00 Test Item Value Reference Range Comments PH ARTERIAL (BEAKER) (test jsxz=595) 7.39 7.35-7.45 PCO2 ARTERIAL (BEAKER) (test yxwz=965) 48 mmHg 35-45 PO2 ARTERIAL (BEAKER) (test emax=910) 122 mmHg 80-90 O2 SATURATION ARTERIAL (BEAKER) (test iggu=527) 98.4 % 96.0-97.0 HCO3 ARTERIAL (BEAKER) (test txcf=005) 28 mmol/L 21-29 BASE EXCESS ARTERIAL (BEAKER) (test xxqo=444) 2.4 mmol/L -2.0-3.0 PATIENT TEMPERATURE (BEAKER) (test vxfw=3265) 36.5 C FIO2 (BEAKER) (test jzsq=9574) 21.0 % [id number] 05:20:00 Test Item Value Reference Range Comments PHOSPHORUS (BEAKER) (test pudw=969) 1.3 mg/dL 2.3-4.7 BASIC METABOLIC [id number] 05:18:00 Test Item Value Reference Range Comments SODIUM (BEAKER) (test 133 meq/L 136-145 sdud=581) POTASSIUM (BEAKER) (test 4.5 meq/L 3.5-5.1 mflh=440) CHLORIDE (BEAKER) (test 97 meq/L 98-107 ijpu=649) CO2 (BEAKER) (test 25 meq/L 22-29 vtag=650) BLOOD UREA NITROGEN 20 mg/dL 7-21 (BEAKER) (test kuak=362) CREATININE (BEAKER) (test 2.87 mg/dL 0.57-1.25 ppno=437) GLUCOSE RANDOM (BEAKER) 302 mg/dL 70-105 (test llae=504) CALCIUM (BEAKER) (test 9.0 mg/dL 8.4-10.2 qojr=518) EGFR (BEAKER) (test 24 mL/min/1.73 sq m ESTIMATED GFR IS NOT rzgi=1051) ACCURATE CREATININE CLEARANCE IN PREDICTING GLOMERULAR FILTRATION RATE. ESTIMATED GFR IS NOT APPLICABLE FOR DIALYSIS PATIENTS. [id number] 05:17:00 Test Item Value Reference Range Comments MAGNESIUM (BEAKER) (test bcfd=756) 1.9 mg/dL 1.6-2.6 RAD, CHEST, 1 VIEW, NON [id number] 05:01:00Reason for exam:->s/p decorticationShould this be performed at the bedside?->YesFINAL REPORT Comparison exam: 07/07/2017 Small bilateral pneumothoraces. Smallstable left pleural effusion. Stable cardiomediastinal contours. Appropriate position of the support hardware. Signed: Jamar Ley Verified Date/Time: 07/08/2017 05:01:59 Reading Location: [address] Reading Room [id number] 04:53:00 Test Item Value Reference Range Comments PARTIAL THROMBOPLASTIN TIME (BEAKER) (test 50.4 seconds 22.5-36.0 vpmg=712) PROTHROMBIN [id number] 04:52:00 Test Item Value Reference Range Comments PROTIME (BEAKER) (test ftrb=995) 15.8 seconds 11.7-14.7 INR (BEAKER) (test rkac=402) 1.3 <=5.9 RECOMMENDED COUMADIN/WARFARIN INR THERAPY RANGESSTANDARD DOSE: 2.0 - 3.0 Includes: PROPHYLAXIS forvenous thrombosis, systemic embolization; TREATMENT for venous thrombosis and/or pulmonary embolus.HIGH RISK: Target INR is 2.5-3.5 for patients with mechanical heart valves.ANAEROBIC [id number] 01:38:00 Test Item Value Reference Range Comments CULTURE (BEAKER) (test coho=4121) No anaerobes isolated ANAEROBIC [id number] 01:38:00 Test Item Value Reference Range Comments CULTURE (BEAKER) (test sgmw=9485) No anaerobes isolated ANAEROBIC [id number] 01:38:00 Test Item Value Reference Range Comments CULTURE (BEAKER) (test qbhm=4186) No anaerobes isolated POCT-GLUCOSE [id number] 21:36:00 Test Item Value Reference Range Comments POC-GLUCOSE METER (BEAKER) 265 mg/dL 70-110 TESTED AT [address] (test nilq=1562) [facility] [address] POCT-GLUCOSE [id number] 16:24:00 Test Item Value Reference Range Comments POC-GLUCOSE METER (BEAKER) 119 mg/dL 70-110 TESTED AT [address] (test kwde=2095) [facility] [address] CBC W/PLT COUNT & AUTO [id number] 15:44:00 Test Item Value Reference Range Comments WHITE BLOOD CELL COUNT (BEAKER) (test eegu=867) 11.8 K/ L 3.5-10.5 RED BLOOD CELL COUNT (BEAKER) (test qlcl=392) 3.20 M/ L 4.63-6.08 HEMOGLOBIN (BEAKER) (test kggb=871) 8.6 GM/DL 13.7-17.5 HEMATOCRIT (BEAKER) (test xudv=324) 29.3 % 40.1-51.0 MEAN CORPUSCULAR VOLUME (BEAKER) (test wwhb=241) 91.6 fL 79.0-92.2 MEAN CORPUSCULAR HEMOGLOBIN (BEAKER) (test 26.9 pg 25.7-32.2 ayis=585) MEAN CORPUSCULAR HEMOGLOBIN CONC (BEAKER) (test 29.4 GM/DL 32.3-36.5 alnl=993) RED CELL DISTRIBUTION WIDTH (BEAKER) (test 17.0 % 11.6-14.4 kupf=583) PLATELET COUNT (BEAKER) (test gpxc=090) 257 K/CU MM 150-450 MEAN PLATELET VOLUME (BEAKER) (test nlkc=697) 10.8 fL 9.4-12.4 NUCLEATED RED BLOOD CELLS (BEAKER) (test 0 /100 WBC 0-0 ezuk=699) POCT-GLUCOSE [id number] 12:13:00 Test Item Value Reference Range Comments POC-GLUCOSE METER (BEAKER) 195 mg/dL 70-110 TESTED AT [address] (test ispu=6953) [facility] [address] POCT-GLUCOSE [id number] 09:31:00 Test Item Value Reference Range Comments POC-GLUCOSE METER (BEAKER) 76 mg/dL 70-110 TESTED AT [address] (test msay=2758) [facility] [address] POCT-GLUCOSE [id number] 09:12:00 Test Item Value Reference Range Comments POC-GLUCOSE METER (BEAKER) 60 mg/dL 70-110 Will Repeat Test/TESTED AT (test xjuf=4303) [facility] [address] [facility] [address] BLOOD GAS, [id number] 06:33:00 Test Item Value Reference Range Comments PH ARTERIAL (BEAKER) (test thfu=256) 7.38 7.35-7.45 PCO2 ARTERIAL (BEAKER) (test rfzb=281) 47 mmHg 35-45 PO2 ARTERIAL (BEAKER) (test jpza=118) 171 mmHg 80-90 O2 SATURATION ARTERIAL (BEAKER) (test ihmd=626) 99.1 % 96.0-97.0 HCO3 ARTERIAL (BEAKER) (test pnnx=852) 28 mmol/L 21-29 BASE EXCESS ARTERIAL (BEAKER) (test tzjv=326) 2.1 mmol/L -2.0-3.0 PATIENT TEMPERATURE (BEAKER) (test nvsv=5654) 37.0 C FIO2 (BEAKER) (test ceft=8750) 28.0 % [id number] 06:10:00 Test Item Value Reference Range Comments PARTIAL THROMBOPLASTIN TIME (BEAKER) (test 47.3 seconds 22.5-36.0 zwdt=948) PROTHROMBIN [id number] 06:09:00 Test Item Value Reference Range Comments PROTIME (BEAKER) (test zgyl=231) 14.6 seconds 11.7-14.7 INR (BEAKER) (test wlge=425) 1.1 <=5.9 RECOMMENDED COUMADIN/WARFARIN INR THERAPY RANGESSTANDARD DOSE: 2.0 - 3.0 Includes: PROPHYLAXIS forvenous thrombosis, systemic embolization; TREATMENT for venous thrombosis and/or pulmonary embolus.HIGH RISK: Target INR is 2.5-3.5 for patients with mechanical heart valves.BASIC METABOLIC [id number] 05:54: 00 Test Item Value Reference Range Comments SODIUM (BEAKER) (test 139 meq/L 136-145 altr=799) POTASSIUM (BEAKER) (test 3.9 meq/L 3.5-5.1 fqjz=945) CHLORIDE (BEAKER) (test 103 meq/L 98-107 yref=544) CO2 (BEAKER) (test 26 meq/L 22-29 rcmr=875) BLOOD UREA NITROGEN 39 mg/dL 7-21 (BEAKER) (test avez=320) CREATININE (BEAKER) (test 4.62 mg/dL 0.57-1.25 nmfq=785) GLUCOSE RANDOM (BEAKER) 86 mg/dL 70-105 (test kdwx=710) CALCIUM (BEAKER) (test 9.1 mg/dL 8.4-10.2 jexg=656) EGFR (BEAKER) (test 14 mL/min/1.73 sq m ESTIMATED GFR IS NOT opdt=4245) ACCURATE CREATININE CLEARANCE IN PREDICTING GLOMERULAR FILTRATION RATE. ESTIMATED GFR IS NOT APPLICABLE FOR DIALYSIS PATIENTS. [id number] 05:52:00 Test Item Value Reference Range Comments PHOSPHORUS (BEAKER) (test orzo=725) 2.0 mg/dL 2.3-4.7 [id number] 05:52:00 Test Item Value Reference Range Comments MAGNESIUM (BEAKER) (test vdhs=850) 2.3 mg/dL 1.6-2.6 RAD, CHEST, 1 VIEW, NON [id number] 04:34:00Reason for exam:->s/p decorticationShould this be performed at the bedside?->YesFINAL REPORT Comparison exam: 07/06/2017 Interval improvement in the right pneumothorax. Small bilateral pneumothoraces remain. Left lower lobe atelectasis/consolidation, unchanged. Stable cardiomediastinal contours. Appropriate position of the support hardware. Signed: Jamar Ley MDReport Verified Date/Time: 07/07/2017 04:34:32 Reading Location: [address] Reading Room POCT-GLUCOSE [id number] 00:10:00 Test Item Value Reference Range Comments POC-GLUCOSE METER (BEAKER) 202 mg/dL 70-[address] [facility] [address] [facility] (test nvkv=2392) [facility] [address] POCT-GLUCOSE [id number] 18:01:00 Test Item Value Reference Range Comments POC-GLUCOSE METER (BEAKER) 364 mg/dL 70-110 TESTED AT [address] (test rrit=4648) [place] [address] RAD, CHEST, 1 VIEW, NON [id number] 14:24:00Reason for exam:->R CT to water sealShould [...] Ramirezeport Verified Date/Time: 07/06/2017 14:24:47 Reading Location: [facility] POCT-GLUCOSE [id number] 12:18 :00 Test Item Value Reference Range Comments POC-GLUCOSE METER (BEAKER) 254 mg/dL 70-110 TESTED AT [address] (test onjl=3804) [place] [id number] CBC W/PLT COUNT & AUTO [id number] 11:25:00 Test Item Value Reference Range Comments WHITE BLOOD CELL COUNT (BEAKER) (test olso=826) 13.3 K/ L 3.5-10.5 RED BLOOD CELL COUNT (BEAKER) (test pexn=536) 3.07 M/ L 4.63-6.08 HEMOGLOBIN (BEAKER) (test pcpe=520) 8.2 GM/DL 13.7-17.5 HEMATOCRIT (BEAKER) (test gokl=573) 27.2 % 40.1-51.0 MEAN CORPUSCULAR VOLUME (BEAKER) (test edmh=414) 88.6 fL 79.0-92.2 MEAN CORPUSCULAR HEMOGLOBIN (BEAKER) (test 26.7 pg 25.7-32.2 pbsq=181) MEAN CORPUSCULAR HEMOGLOBIN CONC (BEAKER) (test 30.1 GM/DL 32.3-36.5 bjsw=068) RED CELL DISTRIBUTION WIDTH (BEAKER) (test 16.9 % 11.6-14.4 siqg=748) PLATELET COUNT (BEAKER) (test beos=468) 235 K/CU MM 150-450 MEAN PLATELET VOLUME (BEAKER) (test pjjk=172) 10.5 fL 9.4-12.4 NUCLEATED RED BLOOD CELLS (BEAKER) (test 0 /100 WBC 0-0 wnxe=018) RAD, CHEST, 1 VIEW, NON [id number] 07:44:00Reason for exam:->s/p decorticationShould this be performed at the bedside?->YesFINAL REPORT Chest one view compared to July 05 Discussion: Small upper chest pneumothoraces are grossly similar. Bilateral chest tubes in place. Left effusion and ill-defined left lung airspace opacities are noted. Mild pulmonary congestion. IMPRESSIONS: No change Signed: Cata Montano Verified Date/Time: 07/06/2017 07:44:08 Reading Location: [facility] Radiology Reading Room Electronically signed by: CATA MONTANO M.D. on 02/2017 07:44 AMPOCT-GLUCOSE [id number] 06:46:00 Test Item Value Reference Range Comments POC-GLUCOSE METER (BEAKER) 123 mg/dL 70-[address] [facility] [address] [facility] (test lpas=0197) [facility] [address] BASIC METABOLIC [id number] 05:13:00 Test Item Value Reference Range Comments SODIUM (BEAKER) (test 140 meq/L 136-145 odhb=197) POTASSIUM (BEAKER) (test 4.0 meq/L 3.5-5.1 ccgs=408) CHLORIDE (BEAKER) (test 104 meq/L 98-107 rzds=515) CO2 (BEAKER) (test 27 meq/L 22-29 dsvs=140) BLOOD UREA NITROGEN 16 mg/dL 7-21 (BEAKER) (test krwz=585) CREATININE (BEAKER) (test 2.62 mg/dL 0.57-1.25 wcrx=978) GLUCOSE RANDOM (BEAKER) 115 mg/dL 70-105 (test rdxh=890) CALCIUM (BEAKER) (test 9.6 mg/dL 8.4-10.2 kvuv=514) EGFR (BEAKER) (test 27 mL/min/1.73 sq m ESTIMATED GFR IS NOT fhps=3859) ACCURATE CREATININE CLEARANCE IN PREDICTING GLOMERULAR FILTRATION RATE. ESTIMATED GFR IS NOT APPLICABLE FOR DIALYSIS PATIENTS. [id number] 05:08:00 Test Item Value Reference Range Comments PHOSPHORUS (BEAKER) (test ltbe=282) 1.7 mg/dL 2.3-4.7 [id number] 05:08:00 Test Item Value Reference Range Comments MAGNESIUM (BEAKER) (test ilel=618) 2.1 mg/dL 1.6-2.6 BLOOD GAS, [id number] 05:04:00 Test Item Value Reference Range Comments PH ARTERIAL (BEAKER) (test troe=477) 7.53 7.35-7.45 PCO2 ARTERIAL (BEAKER) (test kgev=819) 35 mmHg 35-45 PO2 ARTERIAL (BEAKER) (test kzmp=328) 203 mmHg 80-90 O2 SATURATION ARTERIAL (BEAKER) (test frfd=474) 99.5 % 96.0-97.0 HCO3 ARTERIAL (BEAKER) (test czsq=630) 29 mmol/L 21-29 BASE EXCESS ARTERIAL (BEAKER) (test ihfm=794) 5.6 mmol/L -2.0-3.0 PATIENT TEMPERATURE (BEAKER) (test lmcu=3258) 37.0 C FIO2 (BEAKER) (test ljcz=5541) 30.0 % [id number] 04:42:00 Test Item Value Reference Range Comments PARTIAL THROMBOPLASTIN TIME (BEAKER) (test 45.3 seconds 22.5-36.0 vvqm=763) PROTHROMBIN [id number] 04:41:00 Test Item Value Reference Range Comments PROTIME (BEAKER) (test aine=890) 14.6 seconds 11.7-14.7 INR (BEAKER) (test zgdv=725) 1.1 <=5.9 RECOMMENDED COUMADIN/WARFARIN INR THERAPY RANGESSTANDARD DOSE: 2.0 - 3.0 Includes: PROPHYLAXIS forvenous thrombosis, systemic embolization; TREATMENT for venous thrombosis and/or pulmonary embolus.HIGH RISK: Target INR is 2.5-3.5 for patients with mechanical heart valves.POCT-GLUCOSE [id number] 00:15:00 Test Item Value Reference Range Comments POC-GLUCOSE METER (BEAKER) 122 mg/dL 70-[address] [facility] [address] [facility] (test elbo=1352) [facility] [address] URINALYSIS W/ REFLEX URINE [id number] 23:02:00 Test Item Value Reference Range Comments COLOR (BEAKER) (test frhu=876) Yellow CLARITY (BEAKER) (test hcxv=933) Hazy SPECIFIC GRAVITY UA (BEAKER) (test zapk=001) 1.016 1.001-1.035 PH UA (BEAKER) (test blue=915) 6.5 5.0-8.0 PROTEIN UA (BEAKER) (test gxto=744) 600 mg/dL Negative GLUCOSE UA (BEAKER) (test gmcj=055) 500 mg/dL Negative KETONES UA (BEAKER) (test ilyx=877) Negative Negative BILIRUBIN UA (BEAKER) (test wsbb=233) Negative Negative BLOOD UA (BEAKER) (test ackt=885) Negative Negative NITRITE UA (BEAKER) (test hhlx=939) Negative Negative LEUKOCYTE ESTERASE UA (BEAKER) (test ybqa=972) Negative Negative UROBILINOGEN UA (BEAKER) (test wabh=565) 0.2 mg/dL 0.2-1.0 RBC UA (BEAKER) (test pzgg=093) 4 /HPF WBC UA (BEAKER) (test cbbs=464) 2 /HPF BACTERIA (BEAKER) (test syhm=375) Occasional SOURCE(BEAKER) (test opno=1731) RAD, CHEST, 1 VIEW, NON [id number] 20:06:00Reason for exam:-> hypoxiaShould this be performed at the bedside?->YesFINAL REPORT Comparison exam: 07/05/2017 time 6:14 AM Small bilateral pneumothoraces, improved on the left when compared to the prior exam. Stable cardiomediastinal contours. Appropriate position of the support hardware. Signed: Jamar Ley Verified Date/Time:07/05/2017 20:06:44 Reading Location: [address] Reading Room TISSUE [id number] 19:06: 00Surgical Pathology Report Case: [id number] Authorizing Provider: Guillermo Snow MD Collected : 06/30/2017 1118 Ordering Location: [address] Received: 07/03/2017 0751 Service Pathologist: Frantz Ruiz MD Specimens: A) - Lung, Left Lower Lobe, Left lower lobe peel B) -Lung, Left Upper Lobe, Left upper lobe peel A. LUNG, LEFT LOWER LOBE, PLEURAL DECORTICATION: - ORGANIZING PLEURITIS - NEGATIVE FOR MALIGNANCYB. LUNG, LEFT LOWER LOBE, PLEURAL DECORTICATION: - ORGANIZING PLEURITIS - NEGATIVE FOR MALIGNANCY Signing Pathologist Direct Phone Line: [phone] signed by Frantz Ruiz MD on 07/05/2017 at 7:06 [id number] pleural effusionA. Left lower lobe peel; B. [...] entirely B1 to B3. CG/pl Performed.BLOOD GAS, [id number] 17:59:00 Test Item Value Reference Range Comments PH ARTERIAL (BEAKER) (test vdag=583) 7.37 7.35-7.45 PCO2 ARTERIAL (BEAKER) (test hkci=119) 47 mmHg 35-45 PO2 ARTERIAL (BEAKER) (test jyol=750) 60 mmHg 80-90 O2 SATURATION ARTERIAL (BEAKER) (test pnnv=233) 91.7 % 96.0-97.0 HCO3 ARTERIAL (BEAKER) (test wolo=674) 27 mmol/L 21-29 BASE EXCESS ARTERIAL (BEAKER) (test jrky=296) 1.2 mmol/L -2.0-3.0 PATIENT TEMPERATURE (BEAKER) (test yjcj=0066) 35.8 C FIO2 (BEAKER) (test bhmu=5615) 30.0 % POCT-GLUCOSE [id number] 17:50:00 Test Item Value Reference Range Comments POC-GLUCOSE METER (BEAKER) 198 mg/dL 70-110 TESTED AT [place] [id number] [facility] (test coim=0321) [facility] [address] POCT-GLUCOSE [id number] 13:56:00 Test Item Value Reference Range Comments POC-GLUCOSE METER (BEAKER) 204 mg/dL 70-110 TESTED AT [place] [id number] [facility] (test vsjl=4983) [facility] [address] ANAEROBIC [id number] 11:01:00 Test Item Value Reference Range Comments CULTURE (BEAKER) (test kswp=9852) No anaerobes isolated ANAEROBIC [id number] 11:01:00 Test Item Value Reference Range Comments CULTURE (BEAKER) (test rlzq=8151) No anaerobes isolated ANAEROBIC [id number] 11:01:00 Test Item Value Reference Range Comments CULTURE (BEAKER) (test vwxn=2573) No anaerobes isolated ANAEROBIC [id number] 11:00:00 Test Item Value Reference Range Comments CULTURE (BEAKER) (test zsnv=2430) No anaerobes isolated RAD, CHEST, 1 VIEW, NON [id number] 09:47:00Reason for exam:->s/p decorticationShould this be performed [...] Montano Verified Date/Time: 07/05/2017 09:47:43 Reading Location: [facility] Radiology Reading Room POCT-GLUCOSE [id number] 09:41:00 Test Item Value Reference Range Comments POC-GLUCOSE METER (BEAKER) 338 mg/dL 70-110 Notified PERLA BARROW/TESTED AT [facility] (test hhvu=2894) [address] [place] [address] CBC W/PLT COUNT & AUTO [id number] 06:31:00 Test Item Value Reference Range Comments WHITE BLOOD CELL COUNT (BEAKER) (test vvac=441) 17.6 K/ L 3.5-10.5 RED BLOOD CELL COUNT (BEAKER) (test ndzk=100) 3.16 M/ L 4.63-6.08 HEMOGLOBIN (BEAKER) (test gvnh=952) 8.4 GM/DL 13.7-17.5 HEMATOCRIT (BEAKER) (test rtve=764) 28.7 % 40.1-51.0 MEAN CORPUSCULAR VOLUME (BEAKER) (test yean=273) 90.8 fL 79.0-92.2 MEAN CORPUSCULAR HEMOGLOBIN (BEAKER) (test 26.6 pg 25.7-32.2 xacu=843) MEAN CORPUSCULAR HEMOGLOBIN CONC (BEAKER) (test 29.3 GM/DL 32.3-36.5 ilxr=201) RED CELL DISTRIBUTION WIDTH (BEAKER) (test 17.2 % 11.6-14.4 cfnf=024) PLATELET COUNT (BEAKER) (test abfb=985) 272 K/CU MM 150-450 MEAN PLATELET VOLUME (BEAKER) (test pmve=293) 11.4 fL 9.4-12.4 NUCLEATED RED BLOOD CELLS (BEAKER) (test 0 /100 WBC 0-0 rsnq=639) NEUTROPHILS RELATIVE PERCENT (BEAKER) (test 84 % zcum=449) LYMPHOCYTES RELATIVE PERCENT (BEAKER) (test 4 % ghia=087) MONOCYTES RELATIVE PERCENT (BEAKER) (test 9 % sqtj=269) EOSINOPHILS RELATIVE PERCENT (BEAKER) (test 2 % kbak=603) BASOPHILS RELATIVE PERCENT (BEAKER) (test 0 % ocjq=131) NEUTROPHILS ABSOLUTE COUNT (BEAKER) (test 14.81 K/ L 1.78-5.38 mwjn=001) LYMPHOCYTES ABSOLUTE COUNT (BEAKER) (test 0.62 K/ L 1.32-3.57 nxdr=587) MONOCYTES ABSOLUTE COUNT (BEAKER) (test 1.57 K/ L 0.30-0.82 cnhg=418) EOSINOPHILS ABSOLUTE COUNT (BEAKER) (test 0.31 K/ L 0.04-0.54 izun=833) BASOPHILS ABSOLUTE COUNT (BEAKER) (test 0.07 K/ L 0.01-0.08 ebcp=104) IMMATURE GRANULOCYTES-RELATIVE PERCENT (BEAKER) 1 % 0-1 (test qsbz=9303) [id number] 06:04:00 Test Item Value Reference Range Comments PROTIME (BEAKER) (test yomp=016) 15.6 seconds 11.7-14.7 INR (BEAKER) (test ylcl=054) 1.2 <=5.9 PARTIAL THROMBOPLASTIN TIME (BEAKER) (test 55.5 seconds 22.5-36.0 jczq=733) RECOMMENDED COUMADIN/WARFARIN INR THERAPY RANGESSTANDARD DOSE: 2.0 - 3.0 Includes: PROPHYLAXIS forvenous thrombosis, systemic embolization; TREATMENT for venous thrombosis and/or pulmonary embolus.HIGH RISK: Target INR is 2.5-3.5 for patients with mechanical heart valves.BASIC METABOLIC [id number] 05:44: 00 Test Item Value Reference Range Comments SODIUM (BEAKER) (test 140 meq/L 136-145 hioy=398) POTASSIUM (BEAKER) (test 4.6 meq/L 3.5-5.1 wgkd=273) CHLORIDE (BEAKER) (test 101 meq/L 98-107 fakn=206) CO2 (BEAKER) (test 24 meq/L 22-29 cgat=262) BLOOD UREA NITROGEN 46 mg/dL 7-21 (BEAKER) (test ysii=354) CREATININE (BEAKER) (test 6.35 mg/dL 0.57-1.25 xjse=218) GLUCOSE RANDOM (BEAKER) 251 mg/dL 70-105 (test cpxs=320) CALCIUM (BEAKER) (test 8.2 mg/dL 8.4-10.2 digr=728) EGFR (BEAKER) (test 10 mL/min/1.73 sq m ESTIMATED GFR IS NOT fbea=0107) ACCURATE CREATININE CLEARANCE IN PREDICTING GLOMERULAR FILTRATION RATE. ESTIMATED GFR IS NOT APPLICABLE FOR DIALYSIS PATIENTS. [id number] 05:22:00 Test Item Value Reference Range Comments PARTIAL THROMBOPLASTIN TIME (BEAKER) (test > seconds 22.5-36.0 dokk=128) [id number] 05:12:00 Test Item Value Reference Range Comments PHOSPHORUS (BEAKER) (test qbyb=054) 6.1 mg/dL 2.3-4.7 [id number] 05:12:00 Test Item Value Reference Range Comments MAGNESIUM (BEAKER) (test aktw=697) 2.3 mg/dL 1.6-2.6 PROTHROMBIN [id number] 05:00:00 Test Item Value Reference Range Comments PROTIME (BEAKER) (test vhhn=323) 17.6 seconds 11.7-14.7 INR (BEAKER) (test pcol=345) 1.5 <=5.9 RECOMMENDED COUMADIN/WARFARIN INR THERAPY RANGESSTANDARD DOSE: 2.0 - 3.0 Includes: PROPHYLAXIS forvenous thrombosis, systemic embolization; TREATMENT for venous thrombosis and/or pulmonary embolus.HIGH RISK: Target INR is 2.5-3.5 for patients with mechanical heart valves.BLOOD GAS, [id number] 04:49:00 Test Item Value Reference Range Comments PH ARTERIAL (BEAKER) (test zgtp=221) 7.33 7.35-7.45 PCO2 ARTERIAL (BEAKER) (test elbq=721) 51 mmHg 35-45 PO2 ARTERIAL (BEAKER) (test yzgt=698) 158 mmHg 80-90 O2 SATURATION ARTERIAL (BEAKER) (test pbgn=296) 98.9 % 96.0-97.0 HCO3 ARTERIAL (BEAKER) (test phrs=242) 26 mmol/L 21-29 BASE EXCESS ARTERIAL (BEAKER) (test chtr=695) -0.1 mmol/L -2.0-3.0 PATIENT TEMPERATURE (BEAKER) (test kyog=2904) 37.0 C FIO2 (BEAKER) (test hktn=3951) 28.0 % POCT-GLUCOSE [id number] 21:51:00 Test Item Value Reference Range Comments POC-GLUCOSE METER (BEAKER) 292 mg/dL 70-110 TESTED AT [address] (test tfph=0096) [facility] [address] POCT-GLUCOSE [id number] 18:49:00 Test Item Value Reference Range Comments POC-GLUCOSE METER (BEAKER) 248 mg/dL 70-110 TESTED AT [address] (test azwz=4066) [place] [address] RAD, CHEST, 1 VIEW, NON [id number] 14:39:00Reason for exam:->eval pneumo , suction to [...] [place] Verified Date/Time:07/04/2017 14:39:09 Reading Location: [facility] [id number] Consult Reading Room POCT-GLUCOSE [id number] 13:28:00 Test Item Value Reference Range Comments POC-GLUCOSE METER (BEAKER) 278 mg/dL 70-110 TESTED AT [address] (test tqlw=4175) [place] [address] BLOOD GAS, [id number] 09:41:00 Test Item Value Reference Range Comments PH ARTERIAL (BEAKER) (test foum=224) 7.30 7.35-7.45 PCO2 ARTERIAL (BEAKER) (test layi=212) 56 mmHg 35-45 PO2 ARTERIAL (BEAKER) (test wiup=509) 110 mmHg 80-90 O2 SATURATION ARTERIAL (BEAKER) (test ecsm=457) 97.4 % 96.0-97.0 HCO3 ARTERIAL (BEAKER) (test blxu=596) 27 mmol/L 21-29 BASE EXCESS ARTERIAL (BEAKER) (test pjxk=907) -0.3 mmol/L -2.0-3.0 PATIENT TEMPERATURE (BEAKER) (test ipyz=0225) 37.0 C FIO2 (BEAKER) (test zlmx=0719) 28.0 % POCT-GLUCOSE [id number] 09:16:00 Test Item Value Reference Range Comments POC-GLUCOSE METER (BEAKER) 161 mg/dL 70-110 TESTED AT [address] (test uric=8996) [place] [id number] RAD, CHEST, 1 VIEW, NON [id number] 09:13:00Reason for exam:->s/p decorticationShould this be performed [...] Verified Date/Time : 07/04/2017 09:13:48 Reading Location: [facility] Radiology Reading Room BLOOD GAS, [id number] 04:33:00 Test Item Value Reference Range Comments PH ARTERIAL (BEAKER) (test kyjj=929) 7.30 7.35-7.45 PCO2 ARTERIAL (BEAKER) (test jqbe=751) 57 mmHg 35-45 PO2 ARTERIAL (BEAKER) (test bqiw=762) 97 mmHg 80-90 O2 SATURATION ARTERIAL (BEAKER) (test xqnl=404) 96.6 % 96.0-97.0 HCO3 ARTERIAL (BEAKER) (test hxut=732) 27 mmol/L 21-29 BASE EXCESS ARTERIAL (BEAKER) (test cstt=946) 0.3 mmol/L -2.0-3.0 PATIENT TEMPERATURE (BEAKER) (test kvmx=0457) 37.0 C FIO2 (BEAKER) (test yree=4906) 28.0 % BASIC METABOLIC [id number] 04:18:00 Test Item Value Reference Range Comments SODIUM (BEAKER) (test 142 meq/L 136-145 pvvq=501) POTASSIUM (BEAKER) (test 4.9 meq/L 3.5-5.1 toru=456) CHLORIDE (BEAKER) (test 101 meq/L 98-107 eetu=736) CO2 (BEAKER) (test 25 meq/L 22-29 avqt=027) BLOOD UREA NITROGEN 24 mg/dL 7-21 (BEAKER) (test hycr=173) CREATININE (BEAKER) (test 4.57 mg/dL 0.57-1.25 vlrz=092) GLUCOSE RANDOM (BEAKER) 152 mg/dL 70-105 (test kimf=115) CALCIUM (BEAKER) (test 8.9 mg/dL 8.4-10.2 thdx=838) EGFR (BEAKER) (test 14 mL/min/1.73 sq m ESTIMATED GFR IS NOT tavb=7654) ACCURATE CREATININE CLEARANCE IN PREDICTING GLOMERULAR FILTRATION RATE. ESTIMATED GFR IS NOT APPLICABLE FOR DIALYSIS PATIENTS. [id number] 04:15:00 Test Item Value Reference Range Comments PHOSPHORUS (BEAKER) (test fjvl=998) 6.5 mg/dL 2.3-4.7 [id number] 04:15:00 Test Item Value Reference Range Comments MAGNESIUM (BEAKER) (test gkpk=313) 2.2 mg/dL 1.6-2.6 CBC W/PLT COUNT & AUTO [id number] 04:10:00 Test Item Value Reference Range Comments WHITE BLOOD CELL COUNT (BEAKER) (test wbuk=222) 18.0 K/ L 3.5-10.5 RED BLOOD CELL COUNT (BEAKER) (test nroj=358) 3.44 M/ L 4.63-6.08 HEMOGLOBIN (BEAKER) (test lffi=313) 9.2 GM/DL 13.7-17.5 HEMATOCRIT (BEAKER) (test fbcm=666) 31.5 % 40.1-51.0 MEAN CORPUSCULAR VOLUME (BEAKER) (test toae=895) 91.6 fL 79.0-92.2 MEAN CORPUSCULAR HEMOGLOBIN (BEAKER) (test 26.7 pg 25.7-32.2 wewu=982) MEAN CORPUSCULAR HEMOGLOBIN CONC (BEAKER) (test 29.2 GM/DL 32.3-36.5 npaz=574) RED CELL DISTRIBUTION WIDTH (BEAKER) (test 17.5 % 11.6-14.4 vtcv=015) PLATELET COUNT (BEAKER) (test cyja=097) 261 K/CU MM 150-450 MEAN PLATELET VOLUME (BEAKER) (test yoxa=259) 11.8 fL 9.4-12.4 NUCLEATED RED BLOOD CELLS (BEAKER) (test 0 /100 WBC 0-0 igiw=240) NEUTROPHILS RELATIVE PERCENT (BEAKER) (test 88 % reis=773) LYMPHOCYTES RELATIVE PERCENT (BEAKER) (test 4 % yjdf=442) MONOCYTES RELATIVE PERCENT (BEAKER) (test 8 % zwxv=277) EOSINOPHILS RELATIVE PERCENT (BEAKER) (test 0 % osrj=509) BASOPHILS RELATIVE PERCENT (BEAKER) (test 0 % tnwm=767) NEUTROPHILS ABSOLUTE COUNT (BEAKER) (test 15.84 K/ L 1.78-5.38 zuii=165) LYMPHOCYTES ABSOLUTE COUNT (BEAKER) (test 0.63 K/ L 1.32-3.57 tjsl=655) MONOCYTES ABSOLUTE COUNT (BEAKER) (test 1.36 K/ L 0.30-0.82 mkmh=373) EOSINOPHILS ABSOLUTE COUNT (BEAKER) (test 0.05 K/ L 0.04-0.54 aemw=117) BASOPHILS ABSOLUTE COUNT (BEAKER) (test 0.05 K/ L 0.01-0.08 xvqn=168) IMMATURE GRANULOCYTES-RELATIVE PERCENT (BEAKER) 1 % 0-1 (test twfk=6747) [id number] 04:10:00 Test Item Value Reference Range Comments PARTIAL THROMBOPLASTIN TIME (BEAKER) (test 54.7 seconds 22.5-36.0 yrvd=736) PROTHROMBIN [id number] 04:08:00 Test Item Value Reference Range Comments PROTIME (BEAKER) (test zgfi=774) 17.5 seconds 11.7-14.7 INR (BEAKER) (test zoru=204) 1.4 <=5.9 RECOMMENDED COUMADIN/WARFARIN INR THERAPY RANGESSTANDARD DOSE: 2.0 - 3.0 Includes: PROPHYLAXIS forvenous thrombosis, systemic embolization; TREATMENT for venous thrombosis and/or pulmonary embolus.HIGH RISK: Target INR is 2.5-3.5 for patients with mechanical heart valves.POCT-GLUCOSE [id number] 22:23:00 Test Item Value Reference Range Comments POC-GLUCOSE METER (BEAKER) 125 mg/dL 70-110 TESTED AT [address] (test jhef=0660) [place] [id number] POCT-GLUCOSE [id number] 18:19:00 Test Item Value Reference Range Comments POC-GLUCOSE METER (BEAKER) 95 mg/dL 70-110 TESTED AT [address] (test vcib=6088) [facility] [address] RAD, CHEST, 1 VIEW, NON [id number] 17:14:00Reason for exam:->CT to water seal, extubationShould [...] 17:14:23 Reading Location: [facility] Radiology Reading Room Electronically signed by: LIZ RAMIREZ on 2017 05:14 PMBLOOD GAS, [id number] 14:24:00 Test Item Value Reference Range Comments PH ARTERIAL (BEAKER) (test wfew=126) 7.39 7.35-7.45 PCO2 ARTERIAL (BEAKER) (test ciwy=729) 49 mmHg 35-45 PO2 ARTERIAL (BEAKER) (test fynd=130) 191 mmHg 80-90 O2 SATURATION ARTERIAL (BEAKER) (test snox=034) 99.3 % 96.0-97.0 HCO3 ARTERIAL (BEAKER) (test mbtb=655) 29 mmol/L 21-29 BASE EXCESS ARTERIAL (BEAKER) (test gqiu=260) 3.6 mmol/L -2.0-3.0 PATIENT TEMPERATURE (BEAKER) (test gkdj=1861) 36.8 C FIO2 (BEAKER) (test skaq=0056) 40.0 % ANAEROBIC [id number] 14:03:00 Test Item Value Reference Range Comments CULTURE (BEAKER) (test bjon=4573) No anaerobes isolated SURGICALLY OBTAINED CULTURE + GRAM [id number] 13:40:00 Test Item Value Reference Range Comments CULTURE (BEAKER) (test COAGULASE NEGATIVE 1+ Coagulase negative rmtp=2932) STAPHYLOCOCCUS Staphylococcus Clindamycin (test code=10) Erythromycin (test code=4) Linezolid (test code=40) Nitrofurantoin (test code=23) Oxacillin (test code=14) Rifampin (test code=43) Tetracycline (test code=2) Trimethoprim + Sulfamethoxazole (test code=47) Vancomycin (test code=13) GRAM STAIN RESULT <1+ WBCs (BEAKER) (test iieo=2593) GRAM STAIN RESULT No organisms seen (BEAKER) (test qity=511591) POCT-GLUCOSE [id number] 13:22:00 Test Item Value Reference Range Comments POC-GLUCOSE METER (BEAKER) 103 mg/dL 70-110 TESTED AT [address] (test mcek=3606) [facility] [address] POCT-GLUCOSE [id number] 12:44:00 Test Item Value Reference Range Comments POC-GLUCOSE METER (BEAKER) 66 mg/dL 70-110 Notified PERLA BARROW/TESTED AT [facility] (test jkfo=5778) [address] [place] [id number] BRONCHIAL CULTURE + GRAM [id number] 11:47:00 Test Item Value Reference Range Comments CULTURE (BEAKER) (test 1+ Normal respiratory morelia qteq=1682) present GRAM STAIN RESULT (BEAKER) 1+ WBCs (test usyj=4120) GRAM STAIN RESULT (BEAKER) No organisms seen (test vcrz=17400) RAD, CHEST, 1 VIEW, NON [id number] 11:17:00Reason for exam:->s/p decorticationShould this be performed at the bedside?->YesFINAL REPORT Chest one view compared to July 02 Discussion: Bilateral chest tubes in place. There persistent small pneumothoraces left more than right at the apices, unchanged. Ill-defined interstitial opacities left lung are stable. Support tubes in place. IMPRESSIONS: No significant change Signed: Cata Montano Verified Date/Time: 07/03/2017 11:17:09 Reading Location: [facility] Radiology Reading Room POCT-GLUCOSE [id number] 08:54:00 Test Item Value Reference Range Comments POC-GLUCOSE METER (BEAKER) 194 mg/dL 70-110 TESTED AT [address] (test falv=9323) [facility] [address] SURGICALLY OBTAINED CULTURE + GRAM [id number] 08:42:00 Test Item Value Reference Range Comments CULTURE (BEAKER) (test vhdp=8081) No growth GRAM STAIN RESULT (BEAKER) (test <1+ WBCs vpkc=4174) GRAM STAIN RESULT (BEAKER) (test No organisms seen sqmk=57155) SURGICALLY OBTAINED CULTURE + GRAM [id number] 08:41:00 Test Item Value Reference Range Comments CULTURE (BEAKER) (test mjcj=9340) No growth GRAM STAIN RESULT (BEAKER) (test <1+ WBCs vxux=3549) GRAM STAIN RESULT (BEAKER) (test No organisms seen pfgc=74621) SURGICALLY OBTAINED CULTURE + GRAM [id number] 08:41:00 Test Item Value Reference Range Comments CULTURE (BEAKER) (test ivpx=4710) No growth GRAM STAIN RESULT (BEAKER) (test <1+ WBCs otvu=8384) GRAM STAIN RESULT (BEAKER) (test No organisms seen qlmm=29234) SURGICALLY OBTAINED CULTURE + GRAM [id number] 08:40:00 Test Item Value Reference Range Comments CULTURE (BEAKER) (test nsdl=5464) No growth GRAM STAIN RESULT (BEAKER) (test <1+ WBCs clpm=9180) GRAM STAIN RESULT (BEAKER) (test No organisms seen crok=38377) SURGICALLY OBTAINED CULTURE + GRAM [id number] 08:40:00 Test Item Value Reference Range Comments CULTURE (BEAKER) (test hkzt=0527) No growth GRAM STAIN RESULT (BEAKER) (test <1+ WBCs swtb=7277) GRAM STAIN RESULT (BEAKER) (test No organisms seen geel=60306) SURGICALLY OBTAINED CULTURE + GRAM [id number] 08:40:00 Test Item Value Reference Range Comments CULTURE (BEAKER) (test viyb=6726) No growth GRAM STAIN RESULT (BEAKER) (test <1+ WBCs lsox=8217) GRAM STAIN RESULT (BEAKER) (test No organisms seen uzeo=20381) SURGICALLY OBTAINED CULTURE + GRAM [id number] 08:39:00 Test Item Value Reference Range Comments CULTURE (BEAKER) (test wanz=6385) No growth GRAM STAIN RESULT (BEAKER) (test <1+ WBCs pbjq=6819) GRAM STAIN RESULT (BEAKER) (test No organisms seen jmye=38378) VANCOMYCIN LEVEL, [id number] 04:12:00 Test Item Value Reference Range Comments VANCOMYCIN RANDOM (BEAKER) (test ujrm=718) 12.7 ug/mL Reference Range: No NormalsBLOOD GAS, [id number] 04:10:00 Test Item Value Reference Range Comments PH ARTERIAL (BEAKER) (test gvzw=418) 7.36 7.35-7.45 PCO2 ARTERIAL (BEAKER) (test pacb=308) 42 mmHg 35-45 PO2 ARTERIAL (BEAKER) (test mhyo=698) 199 mmHg 80-90 O2 SATURATION ARTERIAL (BEAKER) (test rlut=067) 99.3 % 96.0-97.0 HCO3 ARTERIAL (BEAKER) (test zggb=883) 23 mmol/L 21-29 BASE EXCESS ARTERIAL (BEAKER) (test qghr=690) -2.5 mmol/L -2.0-3.0 PATIENT TEMPERATURE (BEAKER) (test vixk=3915) 37.0 C FIO2 (BEAKER) (test uxlh=2201) 40.0 % BASIC METABOLIC [id number] 04:05:00 Test Item Value Reference Range Comments SODIUM (BEAKER) (test 142 meq/L 136-145 mjbx=444) POTASSIUM (BEAKER) (test 4.4 meq/L 3.5-5.1 krcn=178) CHLORIDE (BEAKER) (test 101 meq/L 98-107 hbik=176) CO2 (BEAKER) (test 19 meq/L 22-29 mkzf=049) BLOOD UREA NITROGEN 43 mg/dL 7-21 (BEAKER) (test ewsg=427) CREATININE (BEAKER) (test 7.14 mg/dL 0.57-1.25 nlhi=543) GLUCOSE RANDOM (BEAKER) 146 mg/dL 70-105 (test lzki=420) CALCIUM (BEAKER) (test 9.2 mg/dL 8.4-10.2 kncp=545) EGFR (BEAKER) (test 9 mL/min/1.73 sq m ESTIMATED GFR IS NOT epzt=5706) ACCURATE CREATININE CLEARANCE IN PREDICTING GLOMERULAR FILTRATION RATE. ESTIMATED GFR IS NOT APPLICABLE FOR DIALYSIS PATIENTS. [id number] 03:51:00 Test Item Value Reference Range Comments PHOSPHORUS (BEAKER) (test uloh=221) 7.4 mg/dL 2.3-4.7 [id number] 03:51:00 Test Item Value Reference Range Comments MAGNESIUM (BEAKER) (test lkjs=137) 2.5 mg/dL 1.6-2.6 [id number] 03:46:00 Test Item Value Reference Range Comments PARTIAL THROMBOPLASTIN TIME (BEAKER) (test 49.4 seconds 22.5-36.0 vdll=545) CBC W/PLT COUNT & AUTO [id number] 03:46:00 Test Item Value Reference Range Comments WHITE BLOOD CELL COUNT (BEAKER) (test mkwj=135) 14.4 K/ L 3.5-10.5 RED BLOOD CELL COUNT (BEAKER) (test ofjf=255) 3.21 M/ L 4.63-6.08 HEMOGLOBIN (BEAKER) (test vcpc=442) 8.6 GM/DL 13.7-17.5 HEMATOCRIT (BEAKER) (test hfub=329) 28.6 % 40.1-51.0 MEAN CORPUSCULAR VOLUME (BEAKER) (test okqg=637) 89.1 fL 79.0-92.2 MEAN CORPUSCULAR HEMOGLOBIN (BEAKER) (test 26.8 pg 25.7-32.2 oxlj=904) MEAN CORPUSCULAR HEMOGLOBIN CONC (BEAKER) (test 30.1 GM/DL 32.3-36.5 txnm=427) RED CELL DISTRIBUTION WIDTH (BEAKER) (test 17.2 % 11.6-14.4 posr=411) PLATELET COUNT (BEAKER) (test myja=469) 243 K/CU MM 150-450 MEAN PLATELET VOLUME (BEAKER) (test bfbx=561) 12.3 fL 9.4-12.4 NUCLEATED RED BLOOD CELLS (BEAKER) (test 0 /100 WBC 0-0 dbgk=882) NEUTROPHILS RELATIVE PERCENT (BEAKER) (test 80 % uukj=833) LYMPHOCYTES RELATIVE PERCENT (BEAKER) (test 7 % axfg=010) MONOCYTES RELATIVE PERCENT (BEAKER) (test 7 % nbib=085) EOSINOPHILS RELATIVE PERCENT (BEAKER) (test 5 % xftn=848) BASOPHILS RELATIVE PERCENT (BEAKER) (test 0 % fupu=512) NEUTROPHILS ABSOLUTE COUNT (BEAKER) (test 11.50 K/ L 1.78-5.38 wlsx=081) LYMPHOCYTES ABSOLUTE COUNT (BEAKER) (test 1.03 K/ L 1.32-3.57 udfc=216) MONOCYTES ABSOLUTE COUNT (BEAKER) (test 0.96 K/ L 0.30-0.82 tlis=003) EOSINOPHILS ABSOLUTE COUNT (BEAKER) (test 0.71 K/ L 0.04-0.54 fjow=075) BASOPHILS ABSOLUTE COUNT (BEAKER) (test 0.06 K/ L 0.01-0.08 ipws=875) IMMATURE GRANULOCYTES-RELATIVE PERCENT (BEAKER) 1 % 0-1 (test pkkf=6787) PROTHROMBIN [id number] 03:45:00 Test Item Value Reference Range Comments PROTIME (BEAKER) (test sllv=440) 16.2 seconds 11.7-14.7 INR (BEAKER) (test ykkh=610) 1.3 <=5.9 RECOMMENDED COUMADIN/WARFARIN INR THERAPY RANGESSTANDARD DOSE: 2.0 - 3.0 Includes: PROPHYLAXIS forvenous thrombosis, systemic embolization; TREATMENT for venous thrombosis and/or pulmonary embolus.HIGH RISK: Target INR is 2.5-3.5 for patients with mechanical heart valves.POCT-GLUCOSE [id number] 23:23:00 Test Item Value Reference Range Comments POC-GLUCOSE METER (BEAKER) 123 mg/dL 70-110 TESTED AT [address] (test urfk=8407) [place] [address] POCT-GLUCOSE [id number] 17:45:00 Test Item Value Reference Range Comments POC-GLUCOSE METER (BEAKER) 182 mg/dL 70-110 TESTED AT [address] (test kdgf=9318) [place] [id number] POCT-GLUCOSE [id number] 12:28:00 Test Item Value Reference Range Comments POC-GLUCOSE METER (BEAKER) 159 mg/dL 70-110 TESTED AT [address] (test qzqg=9239) [place] [address] POCT-GLUCOSE [id number] 09:44:00 Test Item Value Reference Range Comments POC-GLUCOSE METER (BEAKER) 209 mg/dL 70-110 TESTED AT [address] (test lgsl=6625) [place] [id number] BASIC METABOLIC [id number] 04:58:00 Test Item Value Reference Range Comments SODIUM (BEAKER) (test 140 meq/L 136-145 ssdu=626) POTASSIUM (BEAKER) (test 3.6 meq/L 3.5-5.1 ntyj=275) CHLORIDE (BEAKER) (test 100 meq/L 98-107 uybf=112) CO2 (BEAKER) (test 20 meq/L 22-29 uwod=144) BLOOD UREA NITROGEN 27 mg/dL 7-21 (BEAKER) (test raau=860) CREATININE (BEAKER) (test 5.17 mg/dL 0.57-1.25 mjkc=921) GLUCOSE RANDOM (BEAKER) 160 mg/dL 70-105 (test voaf=744) CALCIUM (BEAKER) (test 9.0 mg/dL 8.4-10.2 kkzs=787) EGFR (BEAKER) (test 12 mL/min/1.73 sq m ESTIMATED GFR IS NOT zwvz=8572) ACCURATE CREATININE CLEARANCE IN PREDICTING GLOMERULAR FILTRATION RATE. ESTIMATED GFR IS NOT APPLICABLE FOR DIALYSIS PATIENTS. [id number] 04:57:00 Test Item Value Reference Range Comments PHOSPHORUS (BEAKER) (test jgyk=180) 4.7 mg/dL 2.3-4.7 [id number] 04:57:00 Test Item Value Reference Range Comments MAGNESIUM (BEAKER) (test ztls=176) 2.3 mg/dL 1.6-2.6 RAD, CHEST, 1 VIEW, NON [id number] 04:40:00Reason for exam:->s/p thoracic surgeryShould this be [...] MDReport Verified Date/Time: 07/02 04:40:28 Reading Location: [facility] C013 CT Body Reading Room [id number] 04:23:00 Test Item Value Reference Range Comments PARTIAL THROMBOPLASTIN TIME (BEAKER) (test 47.6 seconds 22.5-36.0 jnvv=246) PROTHROMBIN [id number] 04:22:00 Test Item Value Reference Range Comments PROTIME (BEAKER) (test wvdq=792) 15.7 seconds 11.7-14.7 INR (BEAKER) (test paeg=062) 1.3 <=5.9 RECOMMENDED COUMADIN/WARFARIN INR THERAPY RANGESSTANDARD DOSE: 2.0 - 3.0 Includes: PROPHYLAXIS forvenous thrombosis, systemic embolization; TREATMENT for venous thrombosis and/or pulmonary embolus.HIGH RISK: Target INR is 2.5-3.5 for patients with mechanical heart valves.CBC W/PLT COUNT & AUTO [id number] 04:20:00 Test Item Value Reference Range Comments WHITE BLOOD CELL COUNT (BEAKER) (test nnur=609) 12.3 K/ L 3.5-10.5 RED BLOOD CELL COUNT (BEAKER) (test hodz=401) 3.28 M/ L 4.63-6.08 HEMOGLOBIN (BEAKER) (test zfov=735) 8.7 GM/DL 13.7-17.5 HEMATOCRIT (BEAKER) (test kson=880) 28.1 % 40.1-51.0 MEAN CORPUSCULAR VOLUME (BEAKER) (test ssvp=186) 85.7 fL 79.0-92.2 MEAN CORPUSCULAR HEMOGLOBIN (BEAKER) (test 26.5 pg 25.7-32.2 xbja=279) MEAN CORPUSCULAR HEMOGLOBIN CONC (BEAKER) (test 31.0 GM/DL 32.3-36.5 hcmw=313) RED CELL DISTRIBUTION WIDTH (BEAKER) (test 16.5 % 11.6-14.4 gbcm=686) PLATELET COUNT (BEAKER) (test zmii=871) 243 K/CU MM 150-450 MEAN PLATELET VOLUME (BEAKER) (test rrlb=911) 13.0 fL 9.4-12.4 NUCLEATED RED BLOOD CELLS (BEAKER) (test 0 /100 WBC 0-0 efvw=987) NEUTROPHILS RELATIVE PERCENT (BEAKER) (test 76 % zxku=199) LYMPHOCYTES RELATIVE PERCENT (BEAKER) (test 11 % lbpb=712) MONOCYTES RELATIVE PERCENT (BEAKER) (test 7 % kdmv=657) EOSINOPHILS RELATIVE PERCENT (BEAKER) (test 5 % tyvy=624) BASOPHILS RELATIVE PERCENT (BEAKER) (test 1 % vlxr=439) NEUTROPHILS ABSOLUTE COUNT (BEAKER) (test 9.38 K/ L 1.78-5.38 nwag=915) LYMPHOCYTES ABSOLUTE COUNT (BEAKER) (test 1.31 K/ L 1.32-3.57 wzeb=026) MONOCYTES ABSOLUTE COUNT (BEAKER) (test 0.88 K/ L 0.30-0.82 zynl=231) EOSINOPHILS ABSOLUTE COUNT (BEAKER) (test 0.59 K/ L 0.04-0.54 haoi=563) BASOPHILS ABSOLUTE COUNT (BEAKER) (test 0.07 K/ L 0.01-0.08 duny=825) IMMATURE GRANULOCYTES-RELATIVE PERCENT (BEAKER) 1 % 0-1 (test sfzn=5547) BLOOD GAS, [id number] 04:02:00 Test Item Value Reference Range Comments PH ARTERIAL (BEAKER) (test lghv=192) 7.52 7.35-7.45 PCO2 ARTERIAL (BEAKER) (test psni=535) 28 mmHg 35-45 PO2 ARTERIAL (BEAKER) (test svfs=426) 232 mmHg 80-90 O2 SATURATION ARTERIAL (BEAKER) (test tlyd=321) 99.6 % 96.0-97.0 HCO3 ARTERIAL (BEAKER) (test nvjr=903) 23 mmol/L 21-29 BASE EXCESS ARTERIAL (BEAKER) (test azdf=656) 0.5 mmol/L -2.0-3.0 PATIENT TEMPERATURE (BEAKER) (test dltg=0997) 37.0 C FIO2 (BEAKER) (test hqnw=4224) 40.0 % POCT-GLUCOSE [id number] 23:22:00 Test Item Value Reference Range Comments POC-GLUCOSE METER (BEAKER) 139 mg/dL 70-[address] [facility] [address] (test tuia=4488) [facility] [address] POCT-GLUCOSE [id number] 17:28:00 Test Item Value Reference Range Comments POC-GLUCOSE METER (BEAKER) 178 mg/dL 70-110 TESTED AT [address] (test fkxo=9790) [place] [address] POCT-GLUCOSE [id number] 12:46:00 Test Item Value Reference Range Comments POC-GLUCOSE METER (BEAKER) 255 mg/dL 70-110 TESTED AT [address] (test nsww=2330) [place] [address] BODY FLUID CULTURE + GRAM [id number] 10:59:00 Test Item Value Reference Range Comments CULTURE (BEAKER) (test aslo=6930) No growth GRAM STAIN RESULT (BEAKER) (test No White blood cells seen ragm=3380) GRAM STAIN RESULT (BEAKER) (test No organisms seen xpdy=27596) POCT-GLUCOSE [id number] 09:09:00 Test Item Value Reference Range Comments POC-GLUCOSE METER (BEAKER) 213 mg/dL 70-110 TESTED AT [address] (test krth=9265) [place] [id number] BASIC METABOLIC [id number] 05:51:00 Test Item Value Reference Range Comments SODIUM (BEAKER) (test 144 meq/L 136-145 krgk=509) POTASSIUM (BEAKER) (test 4.0 meq/L 3.5-5.1 tqnq=184) CHLORIDE (BEAKER) (test 102 meq/L 98-107 lkba=874) CO2 (BEAKER) (test 17 meq/L 22-29 uagk=759) BLOOD UREA NITROGEN 13 mg/dL 7-21 (BEAKER) (test lzjv=899) CREATININE (BEAKER) (test 3.54 mg/dL 0.57-1.25 mymk=477) GLUCOSE RANDOM (BEAKER) 157 mg/dL 70-105 (test kmgo=230) CALCIUM (BEAKER) (test 8.7 mg/dL 8.4-10.2 hboq=719) EGFR (BEAKER) (test 19 mL/min/1.73 sq m ESTIMATED GFR IS NOT hzoa=9010) ACCURATE CREATININE CLEARANCE IN PREDICTING GLOMERULAR FILTRATION RATE. ESTIMATED GFR IS NOT APPLICABLE FOR DIALYSIS PATIENTS. [id number] 05:50:00 Test Item Value Reference Range Comments PHOSPHORUS (BEAKER) (test dxlu=362) 4.2 mg/dL 2.3-4.7 [id number] 05:50:00 Test Item Value Reference Range Comments MAGNESIUM (BEAKER) (test phqt=802) 2.3 mg/dL 1.6-2.6 CBC W/PLT COUNT & AUTO [id number] 05:31:00 Test Item Value Reference Range Comments WHITE BLOOD CELL COUNT (BEAKER) (test negw=011) 12.5 K/ L 3.5-10.5 RED BLOOD CELL COUNT (BEAKER) (test csxo=564) 3.37 M/ L 4.63-6.08 HEMOGLOBIN (BEAKER) (test zryq=323) 8.9 GM/DL 13.7-17.5 HEMATOCRIT (BEAKER) (test weri=019) 29.0 % 40.1-51.0 MEAN CORPUSCULAR VOLUME (BEAKER) (test mdqw=953) 86.1 fL 79.0-92.2 MEAN CORPUSCULAR HEMOGLOBIN (BEAKER) (test 26.4 pg 25.7-32.2 mnhf=411) MEAN CORPUSCULAR HEMOGLOBIN CONC (BEAKER) (test 30.7 GM/DL 32.3-36.5 pdsm=961) RED CELL DISTRIBUTION WIDTH (BEAKER) (test 15.8 % 11.6-14.4 gjht=948) PLATELET COUNT (BEAKER) (test gags=893) 228 K/CU MM 150-450 MEAN PLATELET VOLUME (BEAKER) (test fmgy=105) 13.0 fL 9.4-12.4 NUCLEATED RED BLOOD CELLS (BEAKER) (test 0 /100 WBC 0-0 stgo=168) NEUTROPHILS RELATIVE PERCENT (BEAKER) (test 80 % hzwl=248) LYMPHOCYTES RELATIVE PERCENT (BEAKER) (test 10 % ggck=819) MONOCYTES RELATIVE PERCENT (BEAKER) (test 7 % qsyl=827) EOSINOPHILS RELATIVE PERCENT (BEAKER) (test 2 % xovm=047) BASOPHILS RELATIVE PERCENT (BEAKER) (test 1 % rmsn=762) NEUTROPHILS ABSOLUTE COUNT (BEAKER) (test 9.94 K/ L 1.78-5.38 kyul=285) LYMPHOCYTES ABSOLUTE COUNT (BEAKER) (test 1.27 K/ L 1.32-3.57 gswp=070) MONOCYTES ABSOLUTE COUNT (BEAKER) (test 0.87 K/ L 0.30-0.82 dqws=833) EOSINOPHILS ABSOLUTE COUNT (BEAKER) (test 0.19 K/ L 0.04-0.54 hkzf=648) BASOPHILS ABSOLUTE COUNT (BEAKER) (test 0.07 K/ L 0.01-0.08 ccnh=286) IMMATURE GRANULOCYTES-RELATIVE PERCENT (BEAKER) 1 % 0-1 (test kwbs=3476) PROTHROMBIN TIME/[id number] 05:26:00 Test Item Value Reference Range Comments PROTIME (BEAKER) (test ueio=112) 15.4 seconds 11.7-14.7 INR (BEAKER) (test pfdv=462) 1.2 <=5.9 RECOMMENDED COUMADIN/WARFARIN INR THERAPY RANGESSTANDARD DOSE: 2.0 - 3.0 Includes: PROPHYLAXIS forvenous thrombosis, systemic embolization; TREATMENT for venous thrombosis and/or pulmonary embolus.HIGH RISK: Target INR is 2.5-3.5 for patients with mechanical heart valves.[id number] 05:26:00 Test Item Value Reference Range Comments PARTIAL THROMBOPLASTIN TIME (BEAKER) (test 38.6 seconds 22.5-36.0 jnmc=497) BLOOD GAS, [id number] 04:31:00 Test Item Value Reference Range Comments PH ARTERIAL (BEAKER) (test whse=101) 7.46 7.35-7.45 PCO2 ARTERIAL (BEAKER) (test sguv=329) 24 mmHg 35-45 PO2 ARTERIAL (BEAKER) (test jbky=230) 280 mmHg 80-90 O2 SATURATION ARTERIAL (BEAKER) (test ljff=717) 99.7 % 96.0-97.0 HCO3 ARTERIAL (BEAKER) (test tdfr=261) 17 mmol/L 21-29 BASE EXCESS ARTERIAL (BEAKER) (test pdsz=899) -5.8 mmol/L -2.0-3.0 PATIENT TEMPERATURE (BEAKER) (test wnxx=4382) 37.0 C FIO2 (BEAKER) (test mnqa=9878) 50.0 % RAD, CHEST, 1 VIEW, NON [id number] 04:31:00Reason for exam:->s/p thoracic surgeryShould this be [...] MDReport Verified Date/Time: 07/01/2017 04:31:20 Reading Location: [facility] C013Y CT Body Reading Room 04: 31 AMBLOOD GAS, [id number] 20:48:00 Test Item Value Reference Range Comments PH ARTERIAL (BEAKER) (test mjjj=202) 7.52 7.35-7.45 PCO2 ARTERIAL (BEAKER) (test jvek=974) 26 mmHg 35-45 PO2 ARTERIAL (BEAKER) (test tjts=122) 267 mmHg 80-90 O2 SATURATION ARTERIAL (BEAKER) (test cyiv=974) 99.7 % 96.0-97.0 HCO3 ARTERIAL (BEAKER) (test fnmv=527) 21 mmol/L 21-29 BASE EXCESS ARTERIAL (BEAKER) (test qwvx=171) -1.2 mmol/L -2.0-3.0 PATIENT TEMPERATURE (BEAKER) (test eabj=9057) 37.0 C FIO2 (BEAKER) (test kkyu=4631) 50.0 % PROTHROMBIN TIME/[id number] 15:11:00 Test Item Value Reference Range Comments PROTIME (BEAKER) (test mpve=161) 15.1 seconds 11.7-14.7 INR (BEAKER) (test akcu=282) 1.2 <=5.9 RECOMMENDED COUMADIN/WARFARIN INR THERAPY RANGESSTANDARD DOSE: 2.0 - 3.0 Includes: PROPHYLAXIS forvenous thrombosis, systemic embolization; TREATMENT for venous thrombosis and/or pulmonary embolus.HIGH RISK: Target INR is 2.5-3.5 for patients with mechanical heart valves.[id number] 15:11:00 Test Item Value Reference Range Comments PARTIAL THROMBOPLASTIN TIME (BEAKER) (test 30.9 seconds 22.5-36.0 udxz=213) RAD, CHEST, 1 VIEW, NON [id number] 15:11:00Reason for exam:->s/p thoracic surgeryShould this be [...] MDReport Verified Date/Time: 06/30/2017 15:11:38 Reading Location: [address] Transitional Reading Room CBC W/PLT COUNT & AUTO [id number] 15:01:00 Test Item Value Reference Range Comments WHITE BLOOD CELL COUNT (BEAKER) (test jgwo=265) 9.1 K/ L 3.5-10.5 RED BLOOD CELL COUNT (BEAKER) (test gabk=914) 3.19 M/ L 4.63-6.08 HEMOGLOBIN (BEAKER) (test yobb=873) 8.4 GM/DL 13.7-17.5 HEMATOCRIT (BEAKER) (test sphz=633) 27.2 % 40.1-51.0 MEAN CORPUSCULAR VOLUME (BEAKER) (test glmm=012) 85.3 fL 79.0-92.2 MEAN CORPUSCULAR HEMOGLOBIN (BEAKER) (test 26.3 pg 25.7-32.2 erxw=336) MEAN CORPUSCULAR HEMOGLOBIN CONC (BEAKER) (test 30.9 GM/DL 32.3-36.5 hdqw=478) RED CELL DISTRIBUTION WIDTH (BEAKER) (test 14.7 % 11.6-14.4 xkdk=094) PLATELET COUNT (BEAKER) (test qvtp=057) 214 K/CU MM 150-450 MEAN PLATELET VOLUME (BEAKER) (test amoy=090) 13.0 fL 9.4-12.4 NUCLEATED RED BLOOD CELLS (BEAKER) (test 0 /100 WBC 0-0 yqpa=650) NEUTROPHILS RELATIVE PERCENT (BEAKER) (test 85 % qyww=535) LYMPHOCYTES RELATIVE PERCENT (BEAKER) (test 6 % wnjr=983) MONOCYTES RELATIVE PERCENT (BEAKER) (test 6 % vyyb=742) EOSINOPHILS RELATIVE PERCENT (BEAKER) (test 2 % wjsg=261) BASOPHILS RELATIVE PERCENT (BEAKER) (test 1 % uuzr=540) NEUTROPHILS ABSOLUTE COUNT (BEAKER) (test 7.68 K/ L 1.78-5.38 byjv=146) LYMPHOCYTES ABSOLUTE COUNT (BEAKER) (test 0.56 K/ L 1.32-3.57 bgqd=896) MONOCYTES ABSOLUTE COUNT (BEAKER) (test 0.52 K/ L 0.30-0.82 orrb=347) EOSINOPHILS ABSOLUTE COUNT (BEAKER) (test 0.18 K/ L 0.04-0.54 ddjw=663) BASOPHILS ABSOLUTE COUNT (BEAKER) (test 0.05 K/ L 0.01-0.08 zgxl=999) IMMATURE GRANULOCYTES-RELATIVE PERCENT (BEAKER) 1 % 0-1 (test unth=4467) BASIC METABOLIC [id number] 14:57:00 Test Item Value Reference Range Comments SODIUM (BEAKER) (test 137 meq/L 136-145 uifb=798) POTASSIUM (BEAKER) (test 5.1 meq/L 3.5-5.1 vahc=202) CHLORIDE (BEAKER) (test 99 meq/L 98-107 kjnz=879) CO2 (BEAKER) (test 15 meq/L 22-29 pgiw=985) BLOOD UREA NITROGEN 36 mg/dL 7-21 (BEAKER) (test fkii=019) CREATININE (BEAKER) (test 7.10 mg/dL 0.57-1.25 xive=106) GLUCOSE RANDOM (BEAKER) 235 mg/dL 70-105 (test admi=432) CALCIUM (BEAKER) (test 8.8 mg/dL 8.4-10.2 diey=178) EGFR (BEAKER) (test 9 mL/min/1.73 sq m ESTIMATED GFR IS NOT jdsb=5198) ACCURATE CREATININE CLEARANCE IN PREDICTING GLOMERULAR FILTRATION RATE. ESTIMATED GFR IS NOT APPLICABLE FOR DIALYSIS PATIENTS. [id number] 14:54:00 Test Item Value Reference Range Comments MAGNESIUM (BEAKER) (test vzsl=988) 2.1 mg/dL 1.6-2.6 BLOOD GAS, [id number] 14:28:00 Test Item Value Reference Range Comments PH ARTERIAL (BEAKER) (test iwiq=573) 7.53 7.35-7.45 PCO2 ARTERIAL (BEAKER) (test jfnj=154) 21 mmHg 35-45 PO2 ARTERIAL (BEAKER) (test rwcz=417) 336 mmHg 80-90 O2 SATURATION ARTERIAL (BEAKER) (test vjbr=294) 99.8 % 96.0-97.0 HCO3 ARTERIAL (BEAKER) (test fzig=884) 17 mmol/L 21-29 BASE EXCESS ARTERIAL (BEAKER) (test qkhe=781) -5.0 mmol/L -2.0-3.0 PATIENT TEMPERATURE (BEAKER) (test lyqq=7352) 36.1 C FIO2 (BEAKER) (test uhdj=1214) 60.0 % BLOOD GAS, [id number] 10:25:00 Test Item Value Reference Range Comments PH ARTERIAL (BEAKER) (test nogn=098) 7.50 7.35-7.45 PCO2 ARTERIAL (BEAKER) (test lepy=564) 31 mmHg 35-45 PO2 ARTERIAL (BEAKER) (test sgiu=792) 570 mmHg 80-90 O2 SATURATION ARTERIAL (BEAKER) (test zgzm=520) 99.9 % 96.0-97.0 HCO3 ARTERIAL (BEAKER) (test kyme=231) 24 mmol/L 21-29 BASE EXCESS ARTERIAL (BEAKER) (test sitw=892) 0.5 mmol/L -2.0-3.0 PATIENT TEMPERATURE (BEAKER) (test wwco=4059) 34.6 C FIO2 (BEAKER) (test uwmp=7535) 100.0 % SODIUM NA-STAT [id number] 10:25:00 Test Item Value Reference Range Comments SODIUM (BEAKER) (test priy=854) 134 meq/L 135-148 GLUCOSE-STAT [id number] 10:25:00 Test Item Value Reference Range Comments GLUCOSE RANDOM (BEAKER) (test lsms=207) 193 mg/dL 70-110 HGB/HCT (H&H) - STAT [id number] 10:25:00 Test Item Value Reference Range Comments HEMOGLOBIN (BEAKER) (test mcbx=697) 9.8 g/dL 13.0-16.8 HEMATOCRIT (BEAKER) (test ksjv=579) 29.0 % 40.0-50.0 POTASSIUM-STAT [id number] 10:23:00 Test Item Value Reference Range Comments POTASSIUM (BEAKER) (test xnng=004) 4.5 meq/L 3.6-5.5 POCT-GLUCOSE [id number] 07:34:00 Test Item Value Reference Range Comments POC-GLUCOSE METER (BEAKER) 163 mg/dL 70-[address] [facility] [address] [facility] (test ksaj=1657) [facility] [address] [id number] 05:59:00 Test Item Value Reference Range Comments MAGNESIUM (BEAKER) (test 2.5 mg/dL 1.6-2.6 Specimen slightly hemolyzed ilqf=071) [id number] 05:59:00 Test Item Value Reference Range Comments PHOSPHORUS (BEAKER) (test 4.5 mg/dL 2.3-4.7 Specimen slightly hemolyzed nlbr=959) BASIC METABOLIC [id number] 05:59:00 Test Item Value Reference Range Comments SODIUM (BEAKER) (test 137 meq/L 136-145 vmpx=670) POTASSIUM (BEAKER) (test 4.9 meq/L 3.5-5.1 Specimen slightly oeye=955) hemolyzed CHLORIDE (BEAKER) (test 97 meq/L 98-107 rlcz=097) CO2 (BEAKER) (test 22 meq/L 22-29 qmhl=261) BLOOD UREA NITROGEN 33 mg/dL 7-21 (BEAKER) (test qtor=194) CREATININE (BEAKER) (test 6.63 mg/dL 0.57-1.25 Specimen slightly rbfq=604) hemolyzed GLUCOSE RANDOM (BEAKER) 173 mg/dL 70-105 (test qnzf=286) CALCIUM (BEAKER) (test 9.3 mg/dL 8.4-10.2 pdsz=869) EGFR (BEAKER) (test 9 mL/min/1.73 sq m ESTIMATED GFR IS NOT lxog=9290) ACCURATE CREATININE CLEARANCE IN PREDICTING GLOMERULAR FILTRATION RATE. ESTIMATED GFR IS NOT APPLICABLE FOR DIALYSIS PATIENTS. CBC W/PLT COUNT & AUTO [id number] 05:56:00 Test Item Value Reference Range Comments WHITE BLOOD CELL COUNT (BEAKER) (test nxnk=208) 8.2 K/ L 3.5-10.5 RED BLOOD CELL COUNT (BEAKER) (test rsgn=996) 3.86 M/ L 4.63-6.08 HEMOGLOBIN (BEAKER) (test tiuc=334) 10.3 GM/DL 13.7-17.5 HEMATOCRIT (BEAKER) (test edwo=562) 33.3 % 40.1-51.0 MEAN CORPUSCULAR VOLUME (BEAKER) (test bvlw=719) 86.3 fL 79.0-92.2 MEAN CORPUSCULAR HEMOGLOBIN (BEAKER) (test 26.7 pg 25.7-32.2 zphy=587) MEAN CORPUSCULAR HEMOGLOBIN CONC (BEAKER) (test 30.9 GM/DL 32.3-36.5 hctw=477) RED CELL DISTRIBUTION WIDTH (BEAKER) (test 14.8 % 11.6-14.4 ybbk=131) PLATELET COUNT (BEAKER) (test ryag=169) 251 K/CU MM 150-450 MEAN PLATELET VOLUME (BEAKER) (test wqze=460) 12.8 fL 9.4-12.4 NUCLEATED RED BLOOD CELLS (BEAKER) (test 0 /100 WBC 0-0 efqv=685) NEUTROPHILS RELATIVE PERCENT (BEAKER) (test 63 % jrsh=257) LYMPHOCYTES RELATIVE PERCENT (BEAKER) (test 18 % xvcw=267) MONOCYTES RELATIVE PERCENT (BEAKER) (test 8 % rkbt=933) EOSINOPHILS RELATIVE PERCENT (BEAKER) (test 9 % jems=182) BASOPHILS RELATIVE PERCENT (BEAKER) (test 1 % ndmj=766) NEUTROPHILS ABSOLUTE COUNT (BEAKER) (test 5.19 K/ L 1.78-5.38 nkpv=343) LYMPHOCYTES ABSOLUTE COUNT (BEAKER) (test 1.50 K/ L 1.32-3.57 piny=488) MONOCYTES ABSOLUTE COUNT (BEAKER) (test 0.65 K/ L 0.30-0.82 pfnk=802) EOSINOPHILS ABSOLUTE COUNT (BEAKER) (test 0.70 K/ L 0.04-0.54 rptn=604) BASOPHILS ABSOLUTE COUNT (BEAKER) (test 0.11 K/ L 0.01-0.08 fsee=877) IMMATURE GRANULOCYTES-RELATIVE PERCENT (BEAKER) 1 % 0-1 (test wjkj=1571) POCT-GLUCOSE [id number] 21:18:00 Test Item Value Reference Range Comments POC-GLUCOSE METER (BEAKER) 194 mg/dL 70-110 TESTED AT [place] [id number] [facility] (test ukgl=6014) [facility] [address] RAD, CHEST, 1 VIEW, NON [id number] 19:48:00Reason for exam:->chest tube removalReason for exam:->chest [...] Anderson Verified Date/Time: 06/29/2017 19:48:42 Reading Location: [address] Reading Room POCT-GLUCOSE [id number] 17:25:00 Test Item Value Reference Range Comments POC-GLUCOSE METER (BEAKER) 166 mg/dL 70-110 TESTED AT [address] (test onhc=6523) [facility] [address] [id number] 09:50:00 Test Item Value Reference Range Comments PROTIME (BEAKER) (test ammu=750) 13.1 seconds 11.7-14.7 INR (BEAKER) (test opls=377) 1.0 <=5.9 PARTIAL THROMBOPLASTIN TIME (BEAKER) (test 29.4 seconds 22.5-36.0 rfky=716) RECOMMENDED COUMADIN/WARFARIN INR THERAPY RANGESSTANDARD DOSE: 2.0 - 3.0 Includes: PROPHYLAXIS forvenous thrombosis, systemic embolization; TREATMENT for venous thrombosis and/or pulmonary embolus.HIGH RISK: Target INR is 2.5-3.5 for patients with mechanical heart valves.POCT-GLUCOSE [id number] 07:13:00 Test Item Value Reference Range Comments POC-GLUCOSE METER (BEAKER) 132 mg/dL 70-[address] [facility] [address] [facility] (test tlog=5790) [facility] [address] BASIC METABOLIC [id number] 04:59:00 Test Item Value Reference Range Comments SODIUM (BEAKER) (test 139 meq/L 136-145 pjno=844) POTASSIUM (BEAKER) (test 4.1 meq/L 3.5-5.1 iilp=028) CHLORIDE (BEAKER) (test 100 meq/L 98-107 wohr=995) CO2 (BEAKER) (test 26 meq/L 22-29 lodh=805) BLOOD UREA NITROGEN 17 mg/dL 7-21 (BEAKER) (test ckzs=468) CREATININE (BEAKER) (test 4.77 mg/dL 0.57-1.25 toqx=477) GLUCOSE RANDOM (BEAKER) 114 mg/dL 70-105 (test orwd=606) CALCIUM (BEAKER) (test 8.7 mg/dL 8.4-10.2 nodd=737) EGFR (BEAKER) (test 14 mL/min/1.73 sq m ESTIMATED GFR IS NOT qnet=1712) ACCURATE CREATININE CLEARANCE IN PREDICTING GLOMERULAR FILTRATION RATE. ESTIMATED GFR IS NOT APPLICABLE FOR DIALYSIS PATIENTS. [id number] 04:54:00 Test Item Value Reference Range Comments PHOSPHORUS (BEAKER) (test sose=758) 3.2 mg/dL 2.3-4.7 [id number] 04:54:00 Test Item Value Reference Range Comments MAGNESIUM (BEAKER) (test kavr=613) 2.0 mg/dL 1.6-2.6 CBC W/PLT COUNT & AUTO [id number] 04:35:00 Test Item Value Reference Range Comments WHITE BLOOD CELL COUNT (BEAKER) (test jfmw=804) 8.1 K/ L 3.5-10.5 RED BLOOD CELL COUNT (BEAKER) (test aqlt=537) 3.48 M/ L 4.63-6.08 HEMOGLOBIN (BEAKER) (test eyal=929) 9.4 GM/DL 13.7-17.5 HEMATOCRIT (BEAKER) (test pnka=301) 30.4 % 40.1-51.0 MEAN CORPUSCULAR VOLUME (BEAKER) (test cnau=225) 87.4 fL 79.0-92.2 MEAN CORPUSCULAR HEMOGLOBIN (BEAKER) (test 27.0 pg 25.7-32.2 dhrf=701) MEAN CORPUSCULAR HEMOGLOBIN CONC (BEAKER) (test 30.9 GM/DL 32.3-36.5 nswh=433) RED CELL DISTRIBUTION WIDTH (BEAKER) (test 14.6 % 11.6-14.4 unce=529) PLATELET COUNT (BEAKER) (test hcrb=175) 196 K/CU MM 150-450 MEAN PLATELET VOLUME (BEAKER) (test tqet=103) 12.7 fL 9.4-12.4 NUCLEATED RED BLOOD CELLS (BEAKER) (test 0 /100 WBC 0-0 fpkh=835) NEUTROPHILS RELATIVE PERCENT (BEAKER) (test 63 % goen=802) LYMPHOCYTES RELATIVE PERCENT (BEAKER) (test 18 % zjmr=470) MONOCYTES RELATIVE PERCENT (BEAKER) (test 8 % obgn=313) EOSINOPHILS RELATIVE PERCENT (BEAKER) (test 9 % aspz=999) BASOPHILS RELATIVE PERCENT (BEAKER) (test 1 % btyl=547) NEUTROPHILS ABSOLUTE COUNT (BEAKER) (test 5.11 K/ L 1.78-5.38 cbnz=767) LYMPHOCYTES ABSOLUTE COUNT (BEAKER) (test 1.44 K/ L 1.32-3.57 xumq=037) MONOCYTES ABSOLUTE COUNT (BEAKER) (test 0.67 K/ L 0.30-0.82 kcug=872) EOSINOPHILS ABSOLUTE COUNT (BEAKER) (test 0.72 K/ L 0.04-0.54 okji=211) BASOPHILS ABSOLUTE COUNT (BEAKER) (test 0.10 K/ L 0.01-0.08 vads=643) IMMATURE GRANULOCYTES-RELATIVE PERCENT (BEAKER) 0 % 0-1 (test xjre=1077) POCT-GLUCOSE [id number] 21:16:00 Test Item Value Reference Range Comments POC-GLUCOSE METER (BEAKER) 136 mg/dL 70-[address] [facility] [address] [facility] (test uvox=9493) [facility] [address] BODY FLUID CELL COUNT WITH [id number] 19:37:00 Test Item Value Reference Range Comments APPEARANCE FLUID (BEAKER) (test shmx=763) Bloody Clear COLOR FLUID (BEAKER) (test hokq=985) Red Colorless, Straw RBC FLUID (BEAKER) (test fkxj=556) [address] /cu mm <=1 ADJUSTED WBC FLUID (BEAKER) (test nzce=2215) 255 /cu mm <=5 LINING CELLS (BEAKER) (test dbls=1174) 0 /cu mm <=1 NEUTROPHILS FLUID (BEAKER) (test jxkn=8896) 5 % LYMPHS FLUID (BEAKER) (test uerz=059) 91 % MONO/MACROPHAGE FLUID (BEAKER) (test flnz=785) 1 % EOSINOPHILS FLUID (BEAKER) (test uhbn=414) 2 % BASO FLUID (BEAKER) (test ftpj=260) 1 % CONTAINER BODY FLUID (BEAKER) (test leem=6693) EDTA Tube PH, BODY [id number] 19:09:00 Test Item Value Reference Range Comments PH, BODY FLUID (BEAKER) (test lgwd=4742) 9.00 LACTATE DEHYDROGENASE (LDH), BODY [id number] 19:06:00 Test Item Value Reference Range Comments LACTATE DEHYDROGENASE FLUID (BEAKER) 100 U/L Light's criteria identifies (test ykcp=306) effusions if one or more are pre Absence of reference range indicates that normals have not been defined.Assay performance has not been validated for this type of specimen.PROTEIN, BODY [id number] 19:06:00 Test Item Value Reference Range Comments PROTEIN FLUID (BEAKER) (test 1.5 g/dL Light's criteria identifies nvji=594) effusions if one or more are pre Absence of reference range indicates that normals have not been defined.Assay performance has not been validated for this type of specimen.GLUCOSE, BODY [id number] 19:06:00 Test Item Value Reference Range Comments GLUCOSE, BODY FLUID (BEAKER) (test ocst=0093) 108 mg/dL 70-110 Absence of reference range indicates that normals have not been defined.Assay performance has not been validated for this type of specimen.POCT-GLUCOSE [id number] 17:15:00 Test Item Value Reference Range Comments POC-GLUCOSE METER (BEAKER) 75 mg/dL 70-110 TESTED AT [address] (test cbfo=3575) [place] [id number] POCT-GLUCOSE [id number] 13:05:00 Test Item Value Reference Range Comments POC-GLUCOSE METER (BEAKER) 112 mg/dL 70-110 TESTED AT [address] (test sblr=2526) [place] [address] HEPATITIS B SURFACE [id number] 10:55:00 Test Item Value Reference Range Comments HEPATITIS B SURFACE ANTIGEN (2) (BEAKER) (test Nonreactive Nonreactive rkxa=7285) POCT-GLUCOSE [id number] 08:37:00 Test Item Value Reference Range Comments POC-GLUCOSE METER (BEAKER) 193 mg/dL 70-110 TESTED AT [address] (test lkvp=2239) [place] [address] [id number] 07:16:00 Test Item Value Reference Range Comments PHOSPHORUS (BEAKER) (test bwnz=750) 5.9 mg/dL 2.3-4.7 [id number] 07:16:00 Test Item Value Reference Range Comments POTASSIUM (BEAKER) (test mzxb=601) 5.9 meq/L 3.5-5.1 BASIC METABOLIC [id number] 05:42:00 Test Item Value Reference Range Comments SODIUM (BEAKER) (test 139 meq/L 136-145 wash=082) POTASSIUM (BEAKER) (test 5.7 meq/L 3.5-5.1 dgko=690) CHLORIDE (BEAKER) (test 98 meq/L 98-107 gwbz=388) CO2 (BEAKER) (test 23 meq/L 22-29 vtys=649) BLOOD UREA NITROGEN 38 mg/dL 7-21 (BEAKER) (test hcqz=714) CREATININE (BEAKER) (test 7.91 mg/dL 0.57-1.25 asto=648) GLUCOSE RANDOM (BEAKER) 177 mg/dL 70-105 (test cbcu=404) CALCIUM (BEAKER) (test 8.6 mg/dL 8.4-10.2 ibxw=367) EGFR (BEAKER) (test 8 mL/min/1.73 sq m ESTIMATED GFR IS NOT bzof=0430) ACCURATE CREATININE CLEARANCE IN PREDICTING GLOMERULAR FILTRATION RATE. ESTIMATED GFR IS NOT APPLICABLE FOR DIALYSIS PATIENTS. [id number] 05:34:00 Test Item Value Reference Range Comments PHOSPHORUS (BEAKER) (test mnuh=739) 5.9 mg/dL 2.3-4.7 [id number] 05:34:00 Test Item Value Reference Range Comments MAGNESIUM (BEAKER) (test nfun=389) 2.3 mg/dL 1.6-2.6 CBC W/PLT COUNT & AUTO [id number] 05:07:00 Test Item Value Reference Range Comments WHITE BLOOD CELL COUNT (BEAKER) (test cpul=931) 8.6 K/ L 3.5-10.5 RED BLOOD CELL COUNT (BEAKER) (test efht=858) 3.42 M/ L 4.63-6.08 HEMOGLOBIN (BEAKER) (test cjaz=685) 9.2 GM/DL 13.7-17.5 HEMATOCRIT (BEAKER) (test aupq=869) 30.7 % 40.1-51.0 MEAN CORPUSCULAR VOLUME (BEAKER) (test hdzs=199) 89.8 fL 79.0-92.2 MEAN CORPUSCULAR HEMOGLOBIN (BEAKER) (test 26.9 pg 25.7-32.2 cpvx=960) MEAN CORPUSCULAR HEMOGLOBIN CONC (BEAKER) (test 30.0 GM/DL 32.3-36.5 sczy=268) RED CELL DISTRIBUTION WIDTH (BEAKER) (test 14.5 % 11.6-14.4 blcg=078) PLATELET COUNT (BEAKER) (test wgzo=429) 213 K/CU MM 150-450 MEAN PLATELET VOLUME (BEAKER) (test mlrt=905) 13.6 fL 9.4-12.4 NUCLEATED RED BLOOD CELLS (BEAKER) (test 0 /100 WBC 0-0 bltn=870) NEUTROPHILS RELATIVE PERCENT (BEAKER) (test 71 % jbau=433) LYMPHOCYTES RELATIVE PERCENT (BEAKER) (test 13 % efwf=208) MONOCYTES RELATIVE PERCENT (BEAKER) (test 7 % bede=331) EOSINOPHILS RELATIVE PERCENT (BEAKER) (test 7 % irgd=028) BASOPHILS RELATIVE PERCENT (BEAKER) (test 1 % itkg=363) NEUTROPHILS ABSOLUTE COUNT (BEAKER) (test 6.11 K/ L 1.78-5.38 zwbv=951) LYMPHOCYTES ABSOLUTE COUNT (BEAKER) (test 1.15 K/ L 1.32-3.57 qott=251) MONOCYTES ABSOLUTE COUNT (BEAKER) (test 0.60 K/ L 0.30-0.82 lffh=000) EOSINOPHILS ABSOLUTE COUNT (BEAKER) (test 0.62 K/ L 0.04-0.54 ymou=787) BASOPHILS ABSOLUTE COUNT (BEAKER) (test 0.10 K/ L 0.01-0.08 seap=787) IMMATURE GRANULOCYTES-RELATIVE PERCENT (BEAKER) 0 % 0-1 (test wgbq=7682) CT, CHEST, WITHOUT [id number] 22:28:00FINAL REPORT CT scan of the chest. [...] Verified Date/Time: 06/27/2017 22:28 :12 Reading Location: [facility] B1 [id number] Consult Reading Room POCT-GLUCOSE [id number] 21:41:00 Test Item Value Reference Range Comments POC-GLUCOSE METER (BEAKER) 184 mg/dL 70-110 TESTED AT [address] (test dqxx=1331) [facility] [address] POCT-GLUCOSE [id number] 17:20:00 Test Item Value Reference Range Comments POC-GLUCOSE METER (BEAKER) 124 mg/dL 70-110 TESTED AT [address] (test fxtq=6443) [facility] [address] POCT-GLUCOSE [id number] 12:06:00 Test Item Value Reference Range Comments POC-GLUCOSE METER (BEAKER) 122 mg/dL 70-110 TESTED AT [address] (test osqr=2027) [facility] [address] HEMOGLOBIN [id number] 11:32:00 Test Item Value Reference Range Comments HEMOGLOBIN A1C (BEAKER) (test ehse=453) 7.0 % 4.3-6.1 RAD, CHEST, 1 VIEW, NON [id number] 08:02:00Reason for exam:->Eval pleural effusionShould this be [...] Desai Verified Date/Time: 06/27/2017 08:02:11 Reading Location: [facility] Radiology Reading Room [id number] 05:48:00 Test Item Value Reference Range Comments FERRITIN (BEAKER) (test qmlr=975) 1317 ng/mL 5-275 VITAMIN D, [id number] 05:48:00 Test Item Value Reference Range Comments VITAMIN D 25-OH (BEAKER) (test hadx=0020) 15.7 ng/mL 6.6-49.9 Effective 11/15/2016: Reference Range ChangeNew: 6.6-49.9 ng/mL Previous: 13.0 -47.8 ng/mLRecommended Vitamin D Target Range: 30.0-40.0 ng/mLBASIC METABOLIC [id number] 05:38:00 Test Item Value Reference Range Comments SODIUM (BEAKER) (test 140 meq/L 136-145 luhv=137) POTASSIUM (BEAKER) (test 4.8 meq/L 3.5-5.1 njxh=465) CHLORIDE (BEAKER) (test 100 meq/L 98-107 ruri=044) CO2 (BEAKER) (test 26 meq/L 22-29 ajge=547) BLOOD UREA NITROGEN 21 mg/dL 7-21 (BEAKER) (test ubpl=297) CREATININE (BEAKER) (test 5.97 mg/dL 0.57-1.25 iqtj=817) GLUCOSE RANDOM (BEAKER) 98 mg/dL 70-105 (test nnqj=851) CALCIUM (BEAKER) (test 8.5 mg/dL 8.4-10.2 hzga=722) EGFR (BEAKER) (test 10 mL/min/1.73 sq m ESTIMATED GFR IS NOT tyqi=0188) ACCURATE CREATININE CLEARANCE IN PREDICTING GLOMERULAR FILTRATION RATE. ESTIMATED GFR IS NOT APPLICABLE FOR DIALYSIS PATIENTS. [id number] 05:35:00 Test Item Value Reference Range Comments PHOSPHORUS (BEAKER) (test qspd=079) 3.8 mg/dL 2.3-4.7 [id number] 05:35:00 Test Item Value Reference Range Comments MAGNESIUM (BEAKER) (test zpug=520) 2.2 mg/dL 1.6-2.6 VANCOMYCIN LEVEL, [id number] 05:27:00 Test Item Value Reference Range Comments VANCOMYCIN RANDOM (BEAKER) (test igvn=913) < ug/mL Reference Range: No NormalsPTH, [id number] 05:27:00 Test Item Value Reference Range Comments PARATHYROID HORMONE INTACT (BEAKER) (test 330.0 pg/mL 8.5-72.5 hhnc=679) IRON, TIBC, % SAT. (WITHOUT FERRITIN)[id number] 05:26:00 Test Item Value Reference Range Comments IRON (BEAKER) (test eqbj=072) 35 ug/dL 40-160 TOTAL IRON BINDING CAPACITY (BEAKER) (test 121 ug/dL 250-450 mmpv=598) IRON % SATURATION (2) (BEAKER) (test pyjw=8743) 29 % 20-55 CBC W/PLT COUNT & AUTO [id number] 05:05:00 Test Item Value Reference Range Comments WHITE BLOOD CELL COUNT (BEAKER) (test ogkp=556) 8.8 K/ L 3.5-10.5 RED BLOOD CELL COUNT (BEAKER) (test hllx=824) 3.30 M/ L 4.63-6.08 HEMOGLOBIN (BEAKER) (test wikc=353) 8.7 GM/DL 13.7-17.5 HEMATOCRIT (BEAKER) (test jxgj=550) 29.2 % 40.1-51.0 MEAN CORPUSCULAR VOLUME (BEAKER) (test pzis=680) 88.5 fL 79.0-92.2 MEAN CORPUSCULAR HEMOGLOBIN (BEAKER) (test 26.4 pg 25.7-32.2 fjgb=874) MEAN CORPUSCULAR HEMOGLOBIN CONC (BEAKER) (test 29.8 GM/DL 32.3-36.5 xrzi=702) RED CELL DISTRIBUTION WIDTH (BEAKER) (test 14.6 % 11.6-14.4 kcwi=959) PLATELET COUNT (BEAKER) (test klqc=269) 181 K/CU MM 150-450 MEAN PLATELET VOLUME (BEAKER) (test cswj=152) 13.5 fL 9.4-12.4 NUCLEATED RED BLOOD CELLS (BEAKER) (test 0 /100 WBC 0-0 kcpl=662) NEUTROPHILS RELATIVE PERCENT (BEAKER) (test 74 % tifj=665) LYMPHOCYTES RELATIVE PERCENT (BEAKER) (test 12 % hdgj=557) MONOCYTES RELATIVE PERCENT (BEAKER) (test 7 % swax=359) EOSINOPHILS RELATIVE PERCENT (BEAKER) (test 7 % qgxb=566) BASOPHILS RELATIVE PERCENT (BEAKER) (test 1 % suvt=750) NEUTROPHILS ABSOLUTE COUNT (BEAKER) (test 6.43 K/ L 1.78-5.38 akav=748) LYMPHOCYTES ABSOLUTE COUNT (BEAKER) (test 1.03 K/ L 1.32-3.57 rasa=591) MONOCYTES ABSOLUTE COUNT (BEAKER) (test 0.59 K/ L 0.30-0.82 qvzk=759) EOSINOPHILS ABSOLUTE COUNT (BEAKER) (test 0.60 K/ L 0.04-0.54 cnpx=792) BASOPHILS ABSOLUTE COUNT (BEAKER) (test 0.08 K/ L 0.01-0.08 hdok=461) IMMATURE GRANULOCYTES-RELATIVE PERCENT (BEAKER) 0 % 0-1 (test twfe=5211) POCT-GLUCOSE [id number] 23:38:00 Test Item Value Reference Range Comments POC-GLUCOSE METER (BEAKER) 99 mg/dL 70-[address] [facility] [address] [facility] (test adbv=2040) [facility] [id number] [id number] 12:02:00 Test Item Value Reference Range Comments THYROID STIMULATING HORMONE (BEAKER) (test 3.60 uIU/mL 0.35-4.94 fglb=696) BASIC METABOLIC [id number] 10:05:00 Test Item Value Reference Range Comments SODIUM (BEAKER) (test 137 meq/L 136-145 rtks=608) POTASSIUM (BEAKER) (test 4.8 meq/L 3.5-5.1 jstv=559) CHLORIDE (BEAKER) (test 97 meq/L 98-107 zkjf=871) CO2 (BEAKER) (test 26 meq/L 22-29 wfvp=099) BLOOD UREA NITROGEN 29 mg/dL 7-21 (BEAKER) (test pshe=281) CREATININE (BEAKER) (test 5.65 mg/dL 0.57-1.25 szip=605) GLUCOSE RANDOM (BEAKER) 194 mg/dL 70-105 (test rlhn=303) CALCIUM (BEAKER) (test 9.3 mg/dL 8.4-10.2 laye=014) EGFR (BEAKER) (test 11 mL/min/1.73 sq m ESTIMATED GFR IS NOT sjjz=6364) ACCURATE CREATININE CLEARANCE IN PREDICTING GLOMERULAR FILTRATION RATE. ESTIMATED GFR IS NOT APPLICABLE FOR DIALYSIS PATIENTS. B-TYPE NATRIURETIC FACTOR (BNP)2017-02-23 09:58:00 Test Item Value Reference Range Comments B-TYPE NATRIURETIC PEPTIDE (BEAKER) (test 875 pg/mL 0-100 vysi=009) LIPID [id number] 09:55:00 Test Item Value Reference Range Comments TRIGLYCERIDES (BEAKER) (test gmyq=169) 102 mg/dL CHOLESTEROL (BEAKER) (test zogq=091) 166 mg/dL HDL CHOLESTEROL (BEAKER) (test atue=608) 55 mg/dL LDL CHOLESTEROL CALCULATED (BEAKER) (test 91 mg/dL ffyr=514) Triglyceride Reference Range: Low Risk <150 Borderline 150- 199 High Risk 200-499 Very High Risk >=500Cholesterol Reference Range: Low Risk <200 Borderline 200-239 High Risk > 240HDL Cholesterol Reference Range: Low Risk >=60 High Risk <40LDL Cholesterol Reference Range: Optimal <100 Near Optimal 100-129 Borderline 130-159 High 160-189 Very High >=190HEPATIC FUNCTION [id number] 09:55:00 Test Item Value Reference Range Comments TOTAL PROTEIN (BEAKER) (test fwxt=630) 7.8 gm/dL 6.0-8.3 ALBUMIN (BEAKER) (test ejcb=3056) 3.9 g/dL 3.5-5.0 BILIRUBIN TOTAL (BEAKER) (test cbww=965) 0.6 mg/dL 0.2-1.2 BILIRUBIN DIRECT (BEAKER) (test kcup=184) 0.2 mg/dL 0.1-0.5 ALKALINE PHOSPHATASE (BEAKER) (test bzkj=664) 112 U/L 40-150 AST (SGOT) (BEAKER) (test jrth=713) 12 U/L 5-34 ALT (SGPT) (BEAKER) (test bzrt=377) 8 U/L 6-55 CBC W/PLT COUNT & AUTO [id number] 09:04:00 Test Item Value Reference Range Comments WHITE BLOOD CELL COUNT (BEAKER) (test xdxq=278) 8.7 K/ L 3.5-10.5 RED BLOOD CELL COUNT (BEAKER) (test weak=213) 4.15 M/ L 4.63-6.08 HEMOGLOBIN (BEAKER) (test cgpt=506) 11.7 GM/DL 13.7-17.5 HEMATOCRIT (BEAKER) (test cenq=312) 35.8 % 40.1-51.0 MEAN CORPUSCULAR VOLUME (BEAKER) (test cinx=388) 86.3 fL 79.0-92.2 MEAN CORPUSCULAR HEMOGLOBIN (BEAKER) (test 28.2 pg 25.7-32.2 ijyx=564) MEAN CORPUSCULAR HEMOGLOBIN CONC (BEAKER) (test 32.7 GM/DL 32.3-36.5 hpkm=828) RED CELL DISTRIBUTION WIDTH (BEAKER) (test 13.2 % 11.6-14.4 wbwb=056) PLATELET COUNT (BEAKER) (test zuoo=529) 174 K/CU MM 150-450 MEAN PLATELET VOLUME (BEAKER) (test udhv=655) 12.4 fL 9.4-12.4 NUCLEATED RED BLOOD CELLS (BEAKER) (test 0 /100 WBC 0-0 kbjx=706) NEUTROPHILS RELATIVE PERCENT (BEAKER) (test 65 % uahd=584) LYMPHOCYTES RELATIVE PERCENT (BEAKER) (test 21 % qicd=181) MONOCYTES RELATIVE PERCENT (BEAKER) (test 9 % pgrk=377) EOSINOPHILS RELATIVE PERCENT (BEAKER) (test 4 % tdli=879) BASOPHILS RELATIVE PERCENT (BEAKER) (test 1 % ftqv=932) NEUTROPHILS ABSOLUTE COUNT (BEAKER) (test 5.66 K/ L 1.78-5.38 azzp=443) LYMPHOCYTES ABSOLUTE COUNT (BEAKER) (test 1.78 K/ L 1.32-3.57 njmz=462) MONOCYTES ABSOLUTE COUNT (BEAKER) (test 0.80 K/ L 0.30-0.82 ddea=852) EOSINOPHILS ABSOLUTE COUNT (BEAKER) (test 0.30 K/ L 0.04-0.54 mnnp=907) BASOPHILS ABSOLUTE COUNT (BEAKER) (test 0.09 K/ L 0.01-0.08 yqfg=915) IMMATURE GRANULOCYTES-RELATIVE PERCENT (BEAKER) 1 % 0-1 (test tkqe=0899) HLA [id number] 15:01:00 Test Item Value Reference Range Comments HLA RESULT (BEAKER) (test dxem=8275) See Scanned Report HLA-A AG1 (BEAKER) (test myiw=7239) HLA-A AG2 (BEAKER) (test fohx=9547) HLA-B AG1 (BEAKER) (test gpuy=2380) HLA-B AG2 (BEAKER) (test tdep=8425) HLA-C AG1 (BEAKER) (test qxtg=4396) HLA-C AG2 (BEAKER) (test gqww=3419) HLA-DR AG1 (BEAKER) (test tgom=4010) HLA-DR AG2 (BEAKER) (test nqsa=8947) HLA-DQ AG1 (BEAKER) (test klcm=8400) HLA-DQ AG2 (BEAKER) (test bgqo=3084) HLA-DRW (BEAKER) (test snwh=3431) FLOW PRA CLASS I AND [id number] 08:31:00 Test Item Value Reference Range Comments DATE OF SERUM (BEAKER) (test enkc=0507) 326242 SERUM # (CASIMIROAKER) (test ydfo=5521) 012602 FLOW PRA CLASS I AND II (test bxrf=0292) See Scanned Report VARICELLA ZOSTER ANTIBODY, [id number] 10:13:00 Test Item Value Reference Range Comments VARICELLA ZOSTER IGG (AL) (BEAKER) (test pimt=3519) 3.0 Al VARICELLA ZOSTER RESULT INTERPRETATIONS: <=0.8 Al Nonreactive: Presumed non-immune to VZV 0.9-1.0 Al Equivocal >=1.1 Al Reactive: Presumed immune to VZVCYTOMEGALOVIRUS ANTIBODY, [id number] 10:04:00 Test Item Value Reference Range Comments CYTOMEGALOVIRUS IGG ANTIBODY (BEAKER) (test Negative nczh=513) CYTOMEGALOVIRUS ANTIBODY, [id number] 10:04:00 Test Item Value Reference Range Comments CYTOMEGALOVIRUS IGM ANTIBODY (BEAKER) (test Negative ffvj=298) EBV-VCA ANTIBODY, [id number] 10:04:00 Test Item Value Reference Range Comments DELFIN-BOB VCA IGG (BEAKER) (test hojq=340) Positive EBV-VCA ANTIBODY, [id number] 10:04:00 Test Item Value Reference Range Comments DELFIN-BOB VCA IGM (BEAKER) (test tfvq=998) Negative URINE [id number] 13:00:00 Test Item Value Reference Range Comments CULTURE (BEAKER) (test kehp=0951) No growth [id number] 06:05:00 Test Item Value Reference Range Comments RPR SCREEN (BEAKER) (test zvvu=256) Nonreactive Nonreactive HEMOGLOBIN [id number] 14:45:00 Test Item Value Reference Range Comments HEMOGLOBIN A1C (BEAKER) (test zcfp=379) 7.9 % 4.3-6.1 URINALYSIS W/ [id number] 11:34:00 Test Item Value Reference Range Comments COLOR (BEAKER) (test pxhe=693) Yellow CLARITY (BEAKER) (test nlak=287) Clear SPECIFIC GRAVITY UA (BEAKER) (test nzvr=468) 1.017 1.001-1.035 PH UA (BEAKER) (test liso=364) 8.5 5.0-8.0 PROTEIN UA (BEAKER) (test szlt=639) >600 mg/dL Negative GLUCOSE UA (BEAKER) (test diri=187) 200 mg/dL Negative KETONES UA (BEAKER) (test isbi=133) Negative Negative BILIRUBIN UA (BEAKER) (test etjh=873) Negative Negative BLOOD UA (BEAKER) (test kdlp=809) Small Negative NITRITE UA (BEAKER) (test wvbq=894) Negative Negative LEUKOCYTE ESTERASE UA (BEAKER) (test blbf=341) Negative Negative UROBILINOGEN UA (BEAKER) (test xquu=772) 0.2 mg/dL 0.2-1.0 RBC UA (BEAKER) (test kbnj=322) 21 /HPF WBC UA (BEAKER) (test yqol=540) 2 /HPF HYALINE CASTS (BEAKER) (test ikto=520) 5 /LPF SOURCE(BEAKER) (test zdsp=9985) HEPATITIS B SURFACE [id number] 11:03:00 Test Item Value Reference Range Comments HEPATITIS B SURFACE ANTIGEN (2) (BEAKER) (test Nonreactive Nonreactive ctgy=8767) HEPATITIS B SURFACE [id number] 11:03:00 Test Item Value Reference Range Comments HEPATITIS B SURFACE ANTIBODY (BEAKER) (test 78.1 mIU/mL <8.0 knlf=060) HEPATITIS B CORE ANTIBODY, [id number] 11:03:00 Test Item Value Reference Range Comments HEPATITIS B CORE IGM ANTIBODY (BEAKER) (test Nonreactive Nonreactive kbuz=927) HEPATITIS C [id number] 11:03:00 Test Item Value Reference Range Comments HEPATITIS C ANTIBODY (BEAKER) (test ferc=800) Nonreactive Nonreactive HIV-1 ANTIGEN WITH HIV-1/2 [id number] 11:03:00 Test Item Value Reference Range Comments HIV-1 ANTIGEN WITH HIV 1\\T\\2 ANTIBODY (2) Nonreactive Nonreactive (BEAKER) (test sdif=3942) COMPREHENSIVE METABOLIC [id number] 10:45:00 Test Item Value Reference Range Comments TOTAL PROTEIN (BEAKER) 7.3 gm/dL 6.0-8.3 (test azft=133) ALBUMIN (BEAKER) (test 3.8 g/dL 3.5-5.0 vash=8748) ALKALINE PHOSPHATASE 119 U/L 40-150 (BEAKER) (test zpsn=832) BILIRUBIN TOTAL (BEAKER) 0.5 mg/dL 0.2-1.2 (test vnul=741) SODIUM (BEAKER) (test 140 meq/L 136-145 vbys=293) POTASSIUM (BEAKER) (test 4.1 meq/L 3.5-5.1 gukk=384) CHLORIDE (BEAKER) (test 98 meq/L 98-107 qptg=566) CO2 (BEAKER) (test 34 meq/L 22-29 tuxd=420) BLOOD UREA NITROGEN 17 mg/dL 7-21 (BEAKER) (test oxcr=352) CREATININE (BEAKER) (test 5.48 mg/dL 0.57-1.25 mume=460) GLUCOSE RANDOM (BEAKER) 102 mg/dL 70-105 (test nnfd=354) CALCIUM (BEAKER) (test 9.4 mg/dL 8.4-10.2 abrx=836) AST (SGOT) (BEAKER) (test 13 U/L 5-34 mxhe=758) ALT (SGPT) (BEAKER) (test 8 U/L 6-55 phny=168) EGFR (BEAKER) (test 12 mL/min/1.73 sq m ESTIMATED GFR IS NOT xqtv=8387) ACCURATE CREATININE CLEARANCE IN PREDICTING GLOMERULAR FILTRATION RATE. ESTIMATED GFR IS NOT APPLICABLE FOR DIALYSIS PATIENTS. PTH, [id number] 10:33:00 Test Item Value Reference Range Comments PARATHYROID HORMONE INTACT (BEAKER) (test 335.9 pg/mL 8.5-72.5 ebdi=407) URIC [id number] 10:27:00 Test Item Value Reference Range Comments URIC ACID (BEAKER) (test eais=733) 3.8 mg/dL 2.6-7.2 [id number] 10:27:00 Test Item Value Reference Range Comments PHOSPHORUS (BEAKER) (test xoyo=218) 2.9 mg/dL 2.3-4.7 LIPID [id number] 10:27:00 Test Item Value Reference Range Comments TRIGLYCERIDES (BEAKER) (test xpul=263) 79 mg/dL CHOLESTEROL (BEAKER) (test txin=385) 156 mg/dL HDL CHOLESTEROL (BEAKER) (test blop=741) 49 mg/dL LDL CHOLESTEROL CALCULATED (BEAKER) (test 91 mg/dL ngiw=893) Triglyceride Reference Range: Low Risk <150 Borderline [...] Range Comments GAMMA GLUTAMYL TRANSFERASE (BEAKER) (test nyqe=196) 32 U/L 9-64 LACTATE DEHYDROGENASE (LDH)2016-11-17 10:27:00 Test Item Value Reference Range Comments LACTATE DEHYDROGENASE (BEAKER) (test msej=916) 252 U/L 125-220 [id number] 10:11:00 Test Item Value Reference Range Comments PROTIME (BEAKER) (test cmvg=963) 14.3 seconds 11.7-14.7 INR (BEAKER) (test jtfr=435) 1.1 <=5.9 PARTIAL THROMBOPLASTIN TIME (BEAKER) (test 32.2 seconds 22.5-36.0 xqgd=699) RECOMMENDED COUMADIN/WARFARIN INR THERAPY RANGESSTANDARD DOSE: 2.0 - 3.0 Includes: PROPHYLAXIS forvenous thrombosis, systemic embolization; TREATMENT for venous thrombosis and/or pulmonary embolus.HIGH RISK: Target INR is 2.5-3.5 for patients with mechanical heart valves.CBC W/PLT COUNT & AUTO [id number] 10:05:00 Test Item Value Reference Range Comments WHITE BLOOD CELL COUNT (BEAKER) (test xpmw=285) 7.0 K/ L 3.5-10.5 RED BLOOD CELL COUNT (BEAKER) (test ygpf=028) 4.06 M/ L 4.63-6.08 HEMOGLOBIN (BEAKER) (test mikg=182) 11.5 GM/DL 13.7-17.5 HEMATOCRIT (BEAKER) (test xghc=256) 36.6 % 40.1-51.0 MEAN CORPUSCULAR VOLUME (BEAKER) (test nzra=049) 90.1 fL 79.0-92.2 MEAN CORPUSCULAR HEMOGLOBIN (BEAKER) (test 28.3 pg 25.7-32.2 ulrk=463) MEAN CORPUSCULAR HEMOGLOBIN CONC (BEAKER) (test 31.4 GM/DL 32.3-36.5 rato=012) RED CELL DISTRIBUTION WIDTH (BEAKER) (test 15.1 % 11.6-14.4 lhbi=404) PLATELET COUNT (BEAKER) (test vouv=931) 222 K/CU MM 150-450 MEAN PLATELET VOLUME (BEAKER) (test pwif=176) 12.7 fL 9.4-12.4 NUCLEATED RED BLOOD CELLS (BEAKER) (test 0 /100 WBC 0-0 rrqf=929) NEUTROPHILS RELATIVE PERCENT (BEAKER) (test 61 % enyd=388) LYMPHOCYTES RELATIVE PERCENT (BEAKER) (test 24 % ddfv=709) MONOCYTES RELATIVE PERCENT (BEAKER) (test 9 % lmtq=932) EOSINOPHILS RELATIVE PERCENT (BEAKER) (test 6 % cfyw=543) BASOPHILS RELATIVE PERCENT (BEAKER) (test 1 % ztnd=363) NEUTROPHILS ABSOLUTE COUNT (BEAKER) (test 4.23 K/ L 1.78-5.38 hamp=166) LYMPHOCYTES ABSOLUTE COUNT (BEAKER) (test 1.66 K/ L 1.32-3.57 xavy=532) MONOCYTES ABSOLUTE COUNT (BEAKER) (test 0.62 K/ L 0.30-0.82 jcmw=924) EOSINOPHILS ABSOLUTE COUNT (BEAKER) (test 0.40 K/ L 0.04-0.54 rupj=507) BASOPHILS ABSOLUTE COUNT (BEAKER) (test 0.08 K/ L 0.01-0.08 relb=913) IMMATURE GRANULOCYTES-RELATIVE PERCENT (BEAKER) 0 % 0-1 (test qyhk=9371) OCCULT BLOOD, [id number] 23:03:00 Test Item Value Reference Range Comments FECAL OCCULT BLOOD (BEAKER) (test ncxk=382) Negative Negative OCCULT BLOOD, [id number] 23:03:00 Test Item Value Reference Range Comments FECAL OCCULT BLOOD (BEAKER) (test earr=741) Negative Negative PET, CARDIAC PERFUSION MULTIPLE STUDIES, REST AND [id number] 14:10: 00Reason for Exam:->ESRD/KIDNEY TRANSPLANT EVALFINAL REPORT PROCEDURE: Rest/Stress MYOCARDIAL PERFUSION PET with regadenoson\\ XA9\\ CPT CODE: 23338 INDICATION: End-stage renal disease, preoperative evaluation for [...] tracer distribution. 6. No previous [facility] study for comparison. NONINVASIVE RISK STRATIFICATION: The above findings are considered low risk(<1% annual mortality rate) based on the following criterion:- Normal or small myocardial perfusion defect at rest or with stress( JACC. 2012;59(9):857-81.) Signed: Nicolas Kimbleort Verified Date/Time: 14:10:21 Reading Location: [address] P327B [facility] Room [place], CYSTOGRAM, CINE OR VIDEO, [id number] 13:04:00Reason for Exam:->kidney transplant evaluationFINAL REPORT VCUG: [...] MDReport Verified Date/Time: 10/11/2016 13:04:21 Reading Location: [facility] B1 C013X Ortho Consult Reading Room Electronically signed by: KEVIN ALMANZA M.D. on 2016 01:04 PMVARICELLA ZOSTER ANTIBODY, [id number] 16:40:00 Test Item Value Reference Range Comments VARICELLA ZOSTER IGG (AL) (CELESTINA) (test hemk=5448) 2.8 Al VARICELLA ZOSTER RESULT INTERPRETATIONS: <=0.8 Al Nonreactive: Presumed non-immune to VZV 0.9-1.0 Al Equivocal >=1.1 Al Reactive: Presumed immune to VZVCYTOMEGALOVIRUS ANTIBODY, [id number] 06:52:00 Test Item Value Reference Range Comments CYTOMEGALOVIRUS IGG ANTIBODY (BEAKER) (test Negative bwex=541) CYTOMEGALOVIRUS ANTIBODY, [id number] 06:52:00 Test Item Value Reference Range Comments CYTOMEGALOVIRUS IGM ANTIBODY (BEAKER) (test Negative cotz=661) EBV-VCA ANTIBODY, [id number] 06:52:00 Test Item Value Reference Range Comments DELFIN-BOB VCA IGG (BEAKER) (test ptsv=312) Positive EBV-VCA ANTIBODY, [id number] 06:52:00 Test Item Value Reference Range Comments DELFIN-BOB VCA IGM (BEAKER) (test melc=246) Negative URINE [id number] 12:59:00 Test Item Value Reference Range Comments CULTURE (BEAKER) (test znls=5087) No growth HEPATITIS B SURFACE [id number] 13:18:00 Test Item Value Reference Range Comments HEPATITIS B SURFACE ANTIGEN Reactive Nonreactive Reactive Hepatitis B Surface (2) (BEAKER) (test Antigen result; Confirmed by rbwp=1299) Hepatitis B Surface Antigen Neutralization testing. [id number] 11:51:00 Test Item Value Reference Range Comments RPR SCREEN (BEAKER) (test dgjq=609) Nonreactive Nonreactive HEMOGLOBIN [id number] 11:05:00 Test Item Value Reference Range Comments HEMOGLOBIN A1C (BEAKER) (test vgue=421) 8.2 % 4.3-6.1 HEPATITIS B SURFACE [id number] 10:37:00 Test Item Value Reference Range Comments HEPATITIS B SURFACE ANTIBODY (BEAKER) (test < mIU/mL <8.0 xkfw=561) PTH, [id number] 10:24:00 Test Item Value Reference Range Comments PARATHYROID HORMONE INTACT (BEAKER) (test 424.7 pg/mL 8.5-72.5 yyyx=926) Effective 12/23/2013: Reference Range ChangeNew: 8.5-72.5 Previous: 15.0- 90.0URINALYSIS W/ [id number] 10:19:00 Test Item Value Reference Range Comments COLOR (BEAKER) (test ordb=044) Yellow CLARITY (BEAKER) (test vnlw=237) Clear SPECIFIC GRAVITY UA (BEAKER) (test fpde=894) 1.013 1.001-1.035 PH UA (BEAKER) (test mmwj=177) 7.5 5.0-8.0 PROTEIN UA (BEAKER) (test mcpm=303) 600 mg/dL Negative GLUCOSE UA (BEAKER) (test dlaf=264) >1000 mg/dL Negative KETONES UA (BEAKER) (test tcim=692) Negative Negative BILIRUBIN UA (BEAKER) (test cvxt=346) Negative Negative BLOOD UA (BEAKER) (test eylu=950) Moderate Negative NITRITE UA (BEAKER) (test fwez=848) Negative Negative LEUKOCYTE ESTERASE UA (BEAKER) (test gxtj=063) Negative Negative UROBILINOGEN UA (BEAKER) (test tgah=476) 0.2 mg/dL 0.2-1.0 RBC UA (BEAKER) (test wajq=301) 9 /HPF WBC UA (BEAKER) (test frnv=147) 3 /HPF HYALINE CASTS (BEAKER) (test bzhp=038) 2 /LPF SOURCE(BEAKER) (test fvyv=5528) HEPATITIS B CORE ANTIBODY, [id number] 09:46:00 Test Item Value Reference Range Comments HEPATITIS B CORE IGM ANTIBODY (BEAKER) (test Nonreactive Nonreactive dngt=016) HEPATITIS C [id number] 09:46:00 Test Item Value Reference Range Comments HEPATITIS C ANTIBODY (BEAKER) (test jife=944) Nonreactive Nonreactive HIV-1 ANTIGEN WITH HIV-1/2 [id number] 09:46:00 Test Item Value Reference Range Comments HIV-1 ANTIGEN WITH HIV 1\\T\\2 ANTIBODY (2) Nonreactive Nonreactive (BEAKER) (test dlil=2951) COMPREHENSIVE METABOLIC [id number] 09:33:00 Test Item Value Reference Range Comments TOTAL PROTEIN (BEAKER) 6.5 gm/dL 6.0-8.3 (test qqye=271) ALBUMIN (BEAKER) (test 3.4 g/dL 3.5-5.0 jmva=8484) ALKALINE PHOSPHATASE 97 U/L 40-150 (BEAKER) (test hvnu=103) BILIRUBIN TOTAL (BEAKER) 0.5 mg/dL 0.2-1.2 (test jqzy=559) SODIUM (BEAKER) (test 136 meq/L 136-145 zjgq=695) POTASSIUM (BEAKER) (test 3.1 meq/L 3.5-5.1 cwpv=528) CHLORIDE (BEAKER) (test 97 meq/L 98-107 psyt=920) CO2 (BEAKER) (test 28 meq/L 22-29 digo=907) BLOOD UREA NITROGEN 31 mg/dL 7-21 (BEAKER) (test svju=818) CREATININE (BEAKER) (test 5.55 mg/dL 0.57-1.25 jkbb=082) GLUCOSE RANDOM (BEAKER) 226 mg/dL 70-105 (test flir=675) CALCIUM (BEAKER) (test 8.5 mg/dL 8.4-10.2 wzjm=260) AST (SGOT) (BEAKER) (test 14 U/L 5-34 fmbz=938) ALT (SGPT) (BEAKER) (test 8 U/L 6-55 rcvl=450) EGFR (BEAKER) (test 11 mL/min/1.73 sq m ESTIMATED GFR IS NOT ppxv=2728) ACCURATE CREATININE CLEARANCE IN PREDICTING GLOMERULAR FILTRATION RATE. ESTIMATED GFR IS NOT APPLICABLE FOR DIALYSIS PATIENTS. [id number] 09:30:00 Test Item Value Reference Range Comments PROTIME (BEAKER) (test ackf=866) 13.7 seconds 11.7-14.7 INR (BEAKER) (test ptjj=091) 1.1 <=5.9 PARTIAL THROMBOPLASTIN TIME (BEAKER) (test 28.7 seconds 22.5-36.0 tvrv=462) RECOMMENDED COUMADIN/WARFARIN INR THERAPY RANGESSTANDARD DOSE: 2.0 - 3.0 Includes: PROPHYLAXIS forvenous thrombosis, systemic embolization; TREATMENT for venous thrombosis and/or pulmonary embolus.HIGH RISK: Target INR is 2.5-3.5 for patients with mechanical heart valves.URIC [id number] 09:27:00 Test Item Value Reference Range Comments URIC ACID (BEAKER) (test rjvt=800) 3.9 mg/dL 2.6-7.2 [id number] 09:27:00 Test Item Value Reference Range Comments PHOSPHORUS (BEAKER) (test bacs=380) 3.9 mg/dL 2.3-4.7 GAMMA GLUTAMYL TRANSFERASE (GGT)2016-08-16 09:27:00 Test Item Value Reference Range Comments GAMMA GLUTAMYL TRANSFERASE (BEAKER) (test jlbg=139) 34 U/L 9-64 LACTATE DEHYDROGENASE (LDH)2016-08-16 09:27:00 Test Item Value Reference Range Comments LACTATE DEHYDROGENASE (BEAKER) (test hcuk=638) 237 U/L 125-220 CBC W/PLT COUNT & AUTO [id number] 09:23:00 Test Item Value Reference Range Comments WHITE BLOOD CELL COUNT (BEAKER) (test kdhu=137) 7.3 K/ L 4.0-10.0 RED BLOOD CELL COUNT (BEAKER) (test wnlf=611) 4.49 M/ L 4.20-5.80 HEMOGLOBIN (BEAKER) (test cbtt=658) 13.8 GM/DL 13.0-16.8 HEMATOCRIT (BEAKER) (test vjee=734) 41.0 % 40.0-50.0 MEAN CORPUSCULAR VOLUME (BEAKER) (test cbxc=154) 91.3 fL 82.0-98.0 MEAN CORPUSCULAR HEMOGLOBIN (BEAKER) (test 30.7 pg 27.0-33.0 kzoo=373) MEAN CORPUSCULAR HEMOGLOBIN CONC (BEAKER) (test 33.7 GM/DL 32.0-36.0 gseu=116) RED CELL DISTRIBUTION WIDTH (BEAKER) (test 15.5 % 10.3-14.2 alnj=568) PLATELET COUNT (BEAKER) (test rqex=846) 169 K/CU MM 150-430 MEAN PLATELET VOLUME (BEAKER) (test lmci=812) 10.9 fL 6.5-10.5 NUCLEATED RED BLOOD CELLS (BEAKER) (test 0 /100 WBC 0-0 flxy=009) NEUTROPHILS RELATIVE PERCENT (BEAKER) (test 64 % fcem=630) LYMPHOCYTES RELATIVE PERCENT (BEAKER) (test 23 % hzyy=809) MONOCYTES RELATIVE PERCENT (BEAKER) (test 8 % ylni=682) EOSINOPHILS RELATIVE PERCENT (BEAKER) (test 4 % aagj=808) BASOPHILS RELATIVE PERCENT (BEAKER) (test 1 % omcb=990) NEUTROPHILS ABSOLUTE COUNT (BEAKER) (test 4.68 K/ L 1.80-8.00 wlsh=252) LYMPHOCYTES ABSOLUTE COUNT (BEAKER) (test 1.66 K/ L 1.48-4.50 mqpy=844) MONOCYTES ABSOLUTE COUNT (BEAKER) (test 0.57 K/ L 0.00-1.30 kfmf=694) EOSINOPHILS ABSOLUTE COUNT (BEAKER) (test 0.30 K/ L 0.00-0.50 wnws=648) BASOPHILS ABSOLUTE COUNT (BEAKER) (test 0.06 K/ L 0.00-0.20 yqtr=227) [id number] 10:56:00 Test Item Value Reference Range Comments POC-POTASSIUM (BEAKER) (test 4.4 meq/L 3.6-5.5 TESTED AT [address] cbfl=2354) [place] [address] POCT-GLUCOSE [id number] 10:52:00 Test Item Value Reference Range Comments POC-GLUCOSE METER (BEAKER) 223 mg/dL 70-110 TESTED AT [address] (test xorb=2000) [place] [address] BUN AND [id number] 14:13:00 Test Item Value Reference Range Comments BLOOD UREA NITROGEN 36 mg/dL 7-21 (BEAKER) (test iwxz=079) CREATININE (BEAKER) (test 4.50 mg/dL 0.57-1.25 uqmj=049) EGFR (BEAKER) (test 15 mL/min/1.73 sq m ESTIMATED GFR IS NOT genh=3128) ACCURATE CREATININE CLEARANCE IN PREDICTING GLOMERULAR FILTRATION RATE. ESTIMATED GFR IS NOT APPLICABLE FOR DIALYSIS PATIENTS. [id number] 14:03:00 Test Item Value Reference Range Comments SODIUM (BEAKER) (test dhxe=880) 139 meq/L 136-145 POTASSIUM (BEAKER) (test nxry=845) 4.2 meq/L 3.5-5.1 CHLORIDE (BEAKER) (test vrmg=984) 104 meq/L 98-107 CO2 (BEAKER) (test bdah=902) 27 meq/L 22-29 [id number] 14:00:00 Test Item Value Reference Range Comments GLUCOSE RANDOM (BEAKER) (test cory=017) 77 mg/dL 70-105 Effective 12/23/2013: Reference Range Change-Adult onlyNew: 70-105 Previous : [id number] 13:51:00 Test Item Value Reference Range Comments HEMOGLOBIN (BEAKER) (test jsek=645) 9.9 GM/DL 13.0-16.8 PLATELET [id number] 13:44:00 Test Item Value Reference Range Comments PLATELET COUNT (BEAKER) (test shkm=842) 131 K/CU MM 150-430 POCT-GLUCOSE [id number] 09:51:00 Test Item Value Reference Range Comments POC-GLUCOSE METER (BEAKER) 210 mg/dL 70-110 TESTED AT [address] (test jham=0421) [place] [address] POCT-GLUCOSE [id number] 07:49:00 Test Item Value Reference Range Comments POC-GLUCOSE METER (BEAKER) 214 mg/dL 70-110 TESTED AT [address] (test mnwx=5823) [place] [address] [id number] 07:19:00 Test Item Value Reference Range Comments POC-POTASSIUM (BEAKER) (test 5.1 meq/L 3.6-5.5 TESTED AT [address] wopz=0664) [place] [address] BUN AND [id number] 12:34:00 Test Item Value Reference Range Comments BLOOD UREA NITROGEN 70 mg/dL 7-21 (BEAKER) (test idcj=780) CREATININE (BEAKER) (test 8.17 mg/dL 0.57-1.25 csyy=835) EGFR (BEAKER) (test 7 mL/min/1.73 sq m ESTIMATED GFR IS NOT aecc=5149) ACCURATE CREATININE CLEARANCE IN PREDICTING GLOMERULAR FILTRATION RATE. ESTIMATED GFR IS NOT APPLICABLE FOR DIALYSIS PATIENTS. [id number] 12:34:00 Test Item Value Reference Range Comments SODIUM (BEAKER) (test nptj=456) 137 meq/L 136-145 POTASSIUM (BEAKER) (test qcto=851) 5.1 meq/L 3.5-5.1 CHLORIDE (BEAKER) (test mwrb=184) 111 meq/L 98-107 CO2 (BEAKER) (test qxnr=458) 15 meq/L 22-29 [id number] 12:29:00 Test Item Value Reference Range Comments GLUCOSE RANDOM (BEAKER) (test tpka=444) 186 mg/dL 70-105 Effective 12/23/2013: Reference Range Change-Adult onlyNew: 70-105 Previous : [id number] 12:21:00 Test Item Value Reference Range Comments HEMOGLOBIN (BEAKER) (test ujbg=519) 9.3 GM/DL 13.0-16.8 PLATELET [id number] 12:19:00 Test Item Value Reference Range Comments PLATELET COUNT (BEAKER) (test bzgy=882) 254 K/CU MM 150-430
[2019-01-31 09:34] LABS: Absolute Lymphocytes (CBC) 0.5 K/uL (0.7-4.9); Basophils % 0.5 % (0-1.3); Lymphocytes % 5.6 % (15.3-44.8); MPV 12.2 fL (7.6-11.3); RBC Red Blood Cell Count 3.95 M/uL (4.33-5.43)
[2019-01-31 09:51] LABS: Albumin 3.5 g/dL (3.4-5.0); Bilirubin Direct 0.6 mg/dL (0-0.2); Bilirubin Total 1.1 mg/dL (0.2-1.0); Potassium 5.4 mmol/L (3.5-5.1); Protein, Total 7.8 g/dL (6.4-8.2)
--- NOTE | 2019-01-31 10:50 | ER ---
Nurse's Notes Former[facility] Name: Vance Barrera Age: 43 yrs Sex: Male : 1975 Arrival Date: 01/31/2019 Time: 09:03 Bed 7 Private MD: Luisito Hicks Diagnosis: Nausea and vomiting;DKA;Weakness;Hyperkalemia Presentation: 01/31 09:10 Presenting complaint: Mother states: COUGH SINCE Y/D. Transition of care: patient was bp not received from another setting of care. Onset of symptoms was January 30, 2019. Risk Assessment: Do you want to hurt yourself or someone else? Patient reports no desire to harm self or others. Initial Sepsis Screen: Does the patient meet any 2 criteria? No. Patient's initial sepsis screen is negative. Does the patient have a suspected source of infection? No. Patient's initial sepsis screen is negative. 09:10 Method Of Arrival: Wheelchair bp 09:10 Acuity: DENY 3 bp 09:10 Care prior to arrival: None. bp Triage Assessment: 09:10 General: Appears in no apparent distress. comfortable, slender, malnourished, Behavior bp is cooperative, appropriate for age, anxious. Pain: Denies pain. EENT: No deficits noted. Neuro: No deficits noted. Cardiovascular: Rhythm is sinus rhythm. Respiratory: Reports cough that is non-productive. GI: No signs and/or symptoms were reported involving the gastrointestinal system. : No signs and/or symptoms were reported regarding the genitourinary system. Derm: No deficits noted. Musculoskeletal: No deficits noted. Historical: - Allergies: : No Known Allergies; bp - Home Meds: : pravastatin 40 mg Oral tab 1 tab once daily [Active]; mirtazapine 15 mg oral tab 1 tab bp [Active]; carvedilol 12.5 mg Oral tab 1 tab 2 times per day [Active]; calcium acetate 667 mg Oral cap 2 caps 3 times per day [Active]; - PMHx: : Diabetes - IDDM; ESRD; High Cholesterol; pleural effusions; Pneumonia; Hypertension; bp - Immunization history:: Adult Immunizations up to date. - Social history:: Smoking status: Patient/guardian denies using tobacco. - Ebola Screening: : No symptoms or risks identified at this time. Screenin:33 Abuse screen: Denies threats or abuse. Denies injuries from another. Nutritional bp screening: No deficits noted. Tuberculosis screening: No symptoms or risk factors identified. Fall Risk None identified. Assessment: 09:32 General: SEE TRIAGE NOTE. bp 11:00 Reassessment: ADMIT IN PROCESS FOR DKA. INSULIN GTT REQUESTED FROM PHARMACY. bp 13:00 Reassessment: PT RESTING QUIETLY, ADMIT IN PROCESS. bp 14:00 Reassessment: BLOOD CX DRAWN AND SENT. MD CONTACTED FOR POSSIBLE DOWNGRADE FROM ICU. bp 16:00 Reassessment: BED ASSIGNED, ADMIT IN PROCESS. INSULIN GTT AT 4 UNIT/HR. bp 17:00 Reassessment: PT REFUSING ADMIT AND SHOUTING AT FAMILY AND STAFF. AWAITING MD FOR bp REORIENTATION AND DISPOSITION. 17:27 Reassessment: PT AGGRESSIVE AND SHOUTING AT STAFF AND FAMILY, REFUSING TO SIGN AMA. bp ADMIT MD INFORMED OF PT STATUS. PT URGED TO STAY BUT REFUSED, SHOUTING AT STAFF AND FAMILY. PT URGED TO RETURN IF S/S REMAIN OR WORSEN. PT REQUIRED TO DRINK 8OZ OJ TO PREVENT HYPOGLYCEMIA BEFORE EXITING. Vital Signs: 09:10 BP 158 / 97; Pulse 82; Resp 20; Temp 98.5; Pulse Ox 99% ; Weight 40.82 kg; bp 10:00 BP 148 / 88; Pulse 78; Resp 20; Pulse Ox 98% ; bp 11:00 BP 146 / 81; Pulse 78; Resp 17; Pulse Ox 98% ; bp 12:39 BP 145 / 90; Pulse 88; Resp 22; Pulse Ox 98% ; bp 13:00 BP 149 / 89; Pulse 88; Resp 21; Pulse Ox 99% ; bp 14:00 BP 144 / 90; Pulse 86; Resp 24; Pulse Ox 99% ; bp 15:00 BP 137 / 86; Pulse 83; Resp 22; Pulse Ox 99% ; bp 16:00 BP 139 / 89; Pulse 86; Resp 21; Pulse Ox 99% ; bp 17:00 BP 135 / 85; Pulse 85; Resp 21; Temp 98.5; Pulse Ox 99% ; bp ED Course: 09:03 Patient arrived in ED. as 09:06 Luisito Hicks MD is Private Physician. as 09:10 Arm band placed on. bp 09:13 Martinez Huerta MD is Attending Physician. kdr 09:24 Alberto Solis, RN is Primary Nurse. bp 09:25 Triage completed. bp 09:30 Inserted saline lock: 20 gauge in right forearm, using aseptic technique. bp 09:33 Patient has correct armband on for positive identification. Placed in gown. Bed in low bp position. Call light in reach. Side rails up X2. Adult w/ patient. 10:47 Marcell Romero MD is Hospitalizing Provider. kdr 11:22 Kylie Mitchell MD is Hospitalizing Provider. kdr 13:45 Consulted physician to see patient. . sg 16:12 No provider procedures requiring assistance completed. Patient admitted, IV remains in bp place. Administered Medications: 09:30 Drug: Zofran 4 mg Route: IVP; Site: right forearm; bp 10:52 Follow up: Response: Nausea is decreased bp 10:52 Drug: Insulin Regular Human 10 units {Co-Signature: hb (Tatum Marsh RN).} Route: bp IVP; Site: right forearm; 11:33 Follow up: Response: Blood sugar is lowered bp 11:15 Drug: Kayexalate 30 grams Route: PO; bp 11:33 Follow up: Response: No adverse reaction bp 11:32 Drug: Insulin Drip - (Insulin Regular Human 100 units, NS 0.9% 100 ml) {Co-Signature: bp sg (Nilson Brady RN).} Route: IV; Rate: calculated rate; Site: right forearm; 16:12 Follow up: IV Status: IV converted to saline lock bp 14:00 Drug: Rocephin - (cefTRIAXone) 1 grams {Note: GIVEN AFTER BLOOD CX.} Route: IVPB; bp Infused Over: 30 mins; Site: right forearm; 14:09 Follow up: IV Status: Completed infusion; IV Intake: 50ml bp Point of Care Testing: Blood Glucose: 11:35 Blood Glucose: 378 mg/dL; bp 12:40 Blood Glucose: 299 mg/dL; bp Ranges: Intake: 14:09 IV: 50ml; Total: 50ml. bp Outcome: 10:49 Decision to Hospitalize by Provider. kdr 17:30 AMA Other PT REFUSED TO SIGN, SLAPPING AT AMA FORM bp 17:30 Condition: AO4, NO S/S ACUTE DISTRESS 17:32 Patient left the ED. bp Signatures: Nilson Brady, PERLA RN sg Martinez Huerta MD MD [facility] Anusha Orellana Brian, RN RN bp Tatum Marsh RN Nilson Brady RN sg Corrections: (The following items were deleted from the chart) 09:29 09:10 Initial Sepsis Screen: Does the patient meet any 2 criteria? bp bp 17:33 17:27 Reassessment: PT AGGRESSIVE AND SHOUTING AT STAFF AND FAMILY, REFUSING TO SIGN bp AMA. ADMIT MD INFORMED OF PT STATUS. PT URGED TO STAY BUT REFUSED, SHOUTING AT STAFF AND FAMILY. PT URGED TO RETURN IF S/S REMAIN OR WORSEN bp
--- NOTE | 2019-01-31 10:51 | EDPHYS ---
Physician Documentation [facility] Name: Vance Barrera Age: 43 yrs Sex: Male : 1975 Arrival Date: 01/31/2019 Time: 09:03 Bed 7 Private MD: Luisito Hicks ED Physician Martinez Huerta HPI: 01/31 10:29 This 43 yrs old Male presents to ER via Wheelchair with complaints of Cough. kdr 10:29 The patient presents to the emergency department with nausea, vomiting, that is kdr intermittent. Onset: The symptoms/episode began/occurred acutely, yesterday. Possible causes: unknown. The symptoms are aggravated by food , The symptoms are alleviated by nothing. Associated signs and symptoms: Pertinent positives: anorexia, nausea, vomiting, Pertinent negatives:. Severity of symptoms: At their worst the symptoms were mild in the emergency department the symptoms are unchanged. The patient has not experienced similar symptoms in the past. The patient has not recently seen a physician. Historical: - Allergies: : No Known Allergies; bp - Home Meds: : pravastatin 40 mg Oral tab 1 tab once daily [Active]; mirtazapine 15 mg oral tab 1 tab bp [Active]; carvedilol 12.5 mg Oral tab 1 tab 2 times per day [Active]; calcium acetate 667 mg Oral cap 2 caps 3 times per day [Active]; - PMHx: 09:31 Diabetes - IDDM; ESRD; High Cholesterol; pleural effusions; Pneumonia; Hypertension; bp - Immunization history:: Adult Immunizations up to date. - Social history:: Smoking status: Patient/guardian denies using tobacco. - Ebola Screening: : No symptoms or risks identified at this time. ROS: 10:29 Constitutional: Negative for fever, chills, and weight loss, Eyes: Negative for injury, kdr pain, redness, and discharge, ENT: Negative for injury, pain, and discharge, Neck: Negative for injury, pain, and swelling, Cardiovascular: Negative for chest pain, palpitations, and edema, Respiratory: Negative for shortness of breath, cough, wheezing, and pleuritic chest pain, Back: Negative for injury and pain, : Negative for injury, bleeding, discharge, and swelling, MS/Extremity: Negative for injury and deformity, Skin: Negative for injury, rash, and discoloration, Neuro: Negative for headache, weakness, numbness, tingling, and seizure activity. Psych: Negative for depression, anxiety, suicide ideation, homicidal ideation, and hallucinations, Allergy/Immunology: Negative for hives, rash, and allergies, Endocrine: Negative for neck swelling, polydipsia, polyuria, polyphagia, and marked weight changes, Hematologic/Lymphatic: Negative for swollen nodes, abnormal bleeding, and unusual bruising. 10:29 Abdomen/GI: Positive for nausea and vomiting, anorexia, black/tarry stool, rectal pain, rectal bleeding, bowel incontinence, Negative for diarrhea, constipation, abdominal cramps, abdominal distension. Exam: 10:29 Constitutional: This is a well developed, well nourished patient who is awake, alert, kdr and in no acute distress. Head/Face: Normocephalic, atraumatic. Eyes: Pupils equal round and reactive to light, extra-ocular motions intact. Lids and lashes normal. Conjunctiva and sclera are non-icteric and not injected. Cornea within normal limits. Periorbital areas with no swelling, redness, or edema. Neck: Trachea midline, no thyromegaly or masses palpated, and no cervical lymphadenopathy. Supple, full range of motion without nuchal rigidity, or vertebral point tenderness. No Meningismus. Chest/axilla: Normal chest wall appearance and motion. Nontender with no deformity. No lesions are appreciated. Cardiovascular: Regular rate and rhythm with a normal S1 and S2. No gallops, murmurs, or rubs. Normal PMI, no JVD. No pulse deficits. Respiratory: Lungs have equal breath sounds bilaterally, clear to auscultation and percussion. No rales, rhonchi or wheezes noted. No increased work of breathing, no retractions or nasal flaring. Back: No spinal tenderness. No costovertebral tenderness. Full range of motion. Skin: Warm, dry with normal turgor. Normal color with no rashes, no lesions, and no evidence of cellulitis. MS/ Extremity: Pulses equal, no cyanosis. Neurovascular intact. Full, normal range of motion. Neuro: Awake and alert, GCS 15, oriented to person, place, time, and situation. Cranial nerves II-XII grossly intact. Motor strength 5/5 in all extremities. Sensory grossly intact. Cerebellar exam normal. Normal gait. Psych: Awake, alert, with orientation to person, place and time. Behavior, mood, and affect are within normal limits. 10:29 Abdomen/GI: Inspection: abdomen appears normal, Bowel sounds: active, all quadrants, Palpation: soft, nontender, in all quadrants. Vital Signs: 09:10 BP 158 / 97; Pulse 82; Resp 20; Temp 98.5; Pulse Ox 99% ; Weight 40.82 kg; bp 10:00 BP 148 / 88; Pulse 78; Resp 20; Pulse Ox 98% ; bp 11:00 BP 146 / 81; Pulse 78; Resp 17; Pulse Ox 98% ; bp 12:39 BP 145 / 90; Pulse 88; Resp 22; Pulse Ox 98% ; bp 13:00 BP 149 / 89; Pulse 88; Resp 21; Pulse Ox 99% ; bp 14:00 BP 144 / 90; Pulse 86; Resp 24; Pulse Ox 99% ; bp 15:00 BP 137 / 86; Pulse 83; Resp 22; Pulse Ox 99% ; bp 16:00 BP 139 / 89; Pulse 86; Resp 21; Pulse Ox 99% ; bp 17:00 BP 135 / 85; Pulse 85; Resp 21; Temp 98.5; Pulse Ox 99% ; bp MDM: 10:49 Patient medically screened. kdr 10:49 Data reviewed: vital signs, nurses notes, lab test result(s), radiologic studies. kdr Counseling: I had a detailed discussion with the patient and/or guardian regarding: the historical points, exam findings, and any diagnostic results supporting the discharge/admit diagnosis, lab results, radiology results, the need for further work-up and treatment in the hospital. 01/31 09:24 Order name: Basic Metabolic Panel; Complete Time: 10:20 kdr 01/31 09:24 Order name: CBC with Diff kdr 01/31 09:24 Order name: Creatinine for Radiology; Complete Time: 10:20 kdr 01/31 09:24 Order name: Hepatic Function; Complete Time: 10:20 kdr 01/31 09:24 Order name: Lipase; Complete Time: 10:20 kdr 01/31 11:40 Order name: Glucose, Ancillary Testing; Complete Time: 12:56 EDMS 01/31 12:03 Order name: Chest Single View; Complete Time: 12:56 EDMS 01/31 12:56 Order name: Glucose, Ancillary Testing EDMS 01/31 13:01 Order name: CBC Smear Scan EDKS 01/31 14:14 Order name: Glucose, Ancillary Testing [facility] 01/31 15:45 Order name: Glucose, Ancillary Testing [facility] 01/31 09:24 Order name: IV Saline Lock; Complete Time: 09:33 kdr 01/31 09:24 Order name: Labs collected and sent; Complete Time: 09:33 kdr 01/31 12:02 Order name: CONS Pharmacy Consult EDKS 01/31 12:02 Order name: Consistent Carb (ADA) [address] EDKS Administered Medications: 09:30 Drug: Zofran 4 mg Route: IVP; Site: right forearm; bp 10:52 Follow up: Response: Nausea is decreased bp 10:52 Drug: Insulin Regular Human 10 units {Co-Signature: hb (Tatum Marsh RN).} Route: bp IVP; Site: right forearm; 11:33 Follow up: Response: Blood sugar is lowered bp 11:15 Drug: Kayexalate 30 grams Route: PO; bp 11:33 Follow up: Response: No adverse reaction bp 11:32 Drug: Insulin Drip - (Insulin Regular Human 100 units, NS 0.9% 100 ml) {Co-Signature: bp sg (Nilson Brady RN).} Route: IV; Rate: calculated rate; Site: right forearm; 16:12 Follow up: IV Status: IV converted to saline lock bp 14:00 Drug: Rocephin - (cefTRIAXone) 1 grams {Note: GIVEN AFTER BLOOD CX.} Route: IVPB; bp Infused Over: 30 mins; Site: right forearm; 14:09 Follow up: IV Status: Completed infusion; IV Intake: 50ml bp Point of Care Testing: Blood Glucose: 11:35 Blood Glucose: 378 mg/dL; bp 12:40 Blood Glucose: 299 mg/dL; bp Ranges: Critical Glucose Levels:Adult <50 mg/dl or >400 mg/dl <40 mg/dl or >180 mg/dl Disposition: 01/31/19 10:49 Hospitalization ordered by Kylie Mitchell for Inpatient Admission. Preliminary diagnosis are Nausea and vomiting, DKA, Weakness, Hyperkalemia. - Bed requested for Telemetry/MedSurg (Inpatient). - Status is Inpatient Admission. bp - Condition is Fair. - Problem is an acute exacerbation. - Symptoms have improved. UTI on Admission? No Signatures: Dispatcher [employer] EDMS Alexsandra Jo bd Martinez Huerta MD MD kdr Alberto Solis RN RN bp Tatum Marsh RN Nilson Brady RN sg Corrections: (The following items were deleted from the chart) 10:51 10:28 Fluid Challenge ordered. kdr bp 11:22 10:49 Hospitalization Ordered by Marcell Romero MD for Inpatient Admission. Preliminary kdr diagnosis is Nausea and vomiting; DKA; Weakness; Hyperkalemia. Bed requested for Telemetry/MedSurg (Inpatient). Status is Inpatient Admission. Condition is Fair. Problem is an acute exacerbation. Symptoms have improved. UTI on Admission? No. kdr 15:41 11:22 01/31/2019 10:49 Hospitalization Ordered by Kylie Mitchell MD for Inpatient bd Admission. Preliminary diagnosis is Nausea and vomiting; DKA; Weakness; Hyperkalemia. Bed requested for Telemetry/MedSurg (Inpatient). Status is Inpatient Admission. Condition is Fair. Problem is an acute exacerbation. Symptoms have improved. UTI on Admission? No. kdr 17:32 15:41 01/31/2019 10:49 Hospitalization Ordered by Kylie Mitchell MD for Inpatient bp Admission. Preliminary diagnosis is Nausea and vomiting; DKA; Weakness; Hyperkalemia. Bed requested for Telemetry/MedSurg (Inpatient). Status is Inpatient Admission. Condition is Fair. Problem is an acute exacerbation. Symptoms have improved. UTI on Admission? No. bd
--- NOTE | 2019-01-31 12:40 | RAD REPORT ---
EXAM DESCRIPTION: RAD - Chest Single View - 01/31/2019 12:17 pm CLINICAL HISTORY: Cough, shortness of breath COMPARISON: October 26 TECHNIQUE: AP portable chest image was obtained 1215 hours . FINDINGS: Right lung field interstitial opacification is similar to comparison. Left lung interstiti al pattern is prominent as well. This is also stable. Mild cardiomegaly is present. Vasculature is mi ldly prominent. Left axilla and arm arterial stents are in place. Right-sided pleural effusion is pre sent. Left costophrenic angle blunting is present. No pneumothorax. No acute bony abnormality seen. N o acute aortic findings suspected. IMPRESSION: Mild CHF/volume overload pattern. Findings are similar or slightly less pronounced than seen October 26. Small pleural effusions similar to comparison.
[2019-01-31 13:01] LABS: Blood Morphology Comment NOT SEEN (NOT SEEN); Platelet Estimate ADEQ; Urine White Blood Cell Casts OK
[2019-01-31 17:44] VITALS: TEMP 98.5
[2019-01-31 17:50] VITALS: O2SAT 99
[2019-01-31 17:55] VITALS: BP 135/85
--- NOTE | 2019-01-31 23:56 | HP ---
Date of Admission: 01/31/2019 Presenting Complaint: Cough with nausea and vomiting. History Of Present Illness: Vance Barrera is a 43-year-old male with past medical hi story of hypertension, diabetes, ESRD on HD, Sunday, , Sunday at [facility]. Last dialysis wa s yesterday. Patient unsure of ultrafiltration volume. He admits to having cough since the last 2 d ays. Cough is nonproductive, became associated with nausea and vomiting since yesterday. He denies any fever. He denies any chills. The patient is a poor historian, although he has significant heari ng impairment. Mother at bedside helping with history, but she is mainly Amharic speaking. Patient denies any fever contact. Past Medical History: Significant for hypertension, diabetes mellitus, ESRD on regular HD, history o f hyperphosphatemia. Allergies: NO KNOWN DRUG ALLERGIES. Family History: Significant for diabetes. Surgical History: Status post AV fistula creation. Social History: The patient resides in the community with mom. No history of tobacco, alcohol, or i llicit drug use. Review of Systems: Poor due to patient not very willing to talk. All systems reviewed x10 were negative except as menti oned above. Home Medications: See full medication list. Family History: Significant for diabetes mellitus. Physical Examination: Vital Signs: Blood pressure of 158/97, pulse of 82, respiratory rate of 20, temperature 98.5, O2 sat uration 99% on room air, weight of 41 kg. General: Thin-built young male, chronically ill looking. HEENT: Head is atraumatic, normocephalic. Pupils equal, reactive to light. Very hard of hearing. Neck: No JVD. No carotid bruit, but notable some extensive collaterals over the right subclavian ar ea. Respiratory: Bilateral basal crepitations with increased egophony over the right base; otherwise no wheeze or rhonchi. Cardiovascular: S1, S2. Rate and rhythm regular. Left arm AV fistula. Abdomen: Full, soft, nontender. Bowel sounds positive. Extremities: No pedal edema. No calf tenderness. Neuro: Patient is alert, conversant. Laboratory Data: WBC 8.5, hemoglobin 12, platelet 169, neutrophils 86%. Sodium 131; potassium 5.4; bicarb 18; BUN 79; creatinine 7.33; glucose 391, repeat of 378 down to 299; albumin 3.5; lipase 288; T bilirubin 1.1. Chest x-ray obtained now shows evidence of persistent right pleural effusion, right basal interstitia l opacification similar to previous. Mild cardiomegaly and CHF findings. Impression: 1.Right community-acquired pneumonia. 2.End-stage renal disease. 3.Hyperkalemia. 4.Hypertension. 5.Diabetes mellitus, uncontrolled. Plan: 1.We will admit the patient to observation status. We will start the patient on empirical Rocephin with Zithromax. We will obtain sputum for culture and sensitivity as well as some blood cultures. W e will do Zofran as tolerated for nausea. We will start patient with clear liquid diet and gradually advancement as tolerated. We will consult Nephrology to arrange for dialysis in a.m. Patient may n eed a low potassium bath. 2.We will do subcutaneous heparin for DVT prophylaxis. 3.Possible hospital stay for less than 2 nights. 4.Total time spent in review of record discussion with patient and family greater than 50 minutes. LEONEL/MODL Voice ID: [id number]
--- NOTE | 2019-02-01 00:17 | CON ---
Date of Consultation: 01/31/2019 Chief Complaint: End-stage renal disease. History Of Present Illness: Patient has multiple medical problems including history of malnutrition, end-stage renal disease. Patient presented to the hospital because of cough, generalized weakness. He was found to have hyperkalemia, uncontrolled diabetes, and patient was admitted to the hospital. I saw patient in the emergency room when he was in ER hold. I ordered dialysis and I discussed with the patient plan and management. Review of Systems: Patient is somewhat confused. Cannot provide review of systems. He has history of anxiety. Past Medical History: End-stage renal disease, malnutrition, anemia of CKD, renal osteodystrophy, hy pertension, hypertensive heart and kidney disease, hyperphosphatemia, hyperlipidemia, diabetes mellit us with renal manifestation including end-stage renal disease, history of pneumonia, and pleural effu doroteo. Social History: Patient denies using tobacco. Family History: No kidney disease in the family. Physical Examination: General: Patient is awake, follows commands, and he is somewhat confused, cannot provide review of s ystems. Eyes: Anicteric sclerae. EOMI. Ears, Nose, Mouth, and Throat: Oral mucosa moist. No pallor. Neck: Supple. No bruits. Lungs: Diminished breath sounds in the bases. No wheezing. No rhonchi. Heart: S1, S2. No pericardial friction rub. Abdomen: Soft, benign. No rebound. No guarding. Extremities: Slight edema. No clubbing. No cyanosis. Neurological: Moving extremities. Cranial nerves intact. Psychiatric: Alert, oriented x3. Normal affect. Laboratory Data: Hemoglobin 12.3, WBC 8.5, platelet count 159,000. Sodium 131, potassium 5.4, gluco se 391, carbon dioxide 18, chloride 92, BUN 79, calcium 8.4. Total bilirubin 1.1, total protein 7.8, albumin 3.5. Impression And Plan: 1.End-stage renal disease. Dialysis was ordered to control fluid overload, provide metabolic cleara nce, control hyperkalemia. 2.Hypertension. Continue blood pressure medication. Monitor blood pressure during dialysis. 3.Congestive heart failure with fluid overload. Chest x-ray showed right-sided pleural effusion and interstitial pulmonary edema. Patient will continue daily dialysis as needed in the hospital. 4.Diabetes mellitus. Continue insulin. EB/MODL Voice ID: [id number] Report ID: [id number]
[2019-02-02 19:30] LABS: HBsAG Nonreactive (Nonreactive)
== END | disposition left against medical advice (07) ==
LOC: ER 09:01 → UNDOADMOB 11:57 → ERHOLD 11:57 → 2ND 17:16
DX: E11.10 Type 2 diabetes mellitus with ketoacidosis without coma (principal); R53.1 Weakness; E87.5 Hyperkalemia; I10 Essential (primary) hypertension; J18.9 Pneumonia, unspecified organism; E11.22 Type 2 diabetes mellitus with diabetic chronic kidney disease; E11.65 Type 2 diabetes mellitus with hyperglycemia; I12.0 Hypertensive chronic kidney disease with stage 5 chronic kidney disease or end stage renal disease; N18.6 End stage renal disease; Z99.2 Dependence on renal dialysis
CPT/HCPCS: 96365; 87040; 85025; 80048; 36415; 82947 ×4; 80076; 83690; 86704; 87340; 86706; 86803; 71045; 94640; 96375; 99285; 96366; J0696; J2405

== ENCOUNTER 2020-09-15 18:32 | Emergency (ER) | payer OTHER ==
--- OUTSIDE RECORDS SUMMARY | 2020-09-15 18:40 | XMS REPORT | Continuity of Care Document ---
:1975 Author Organization [facility] t Address [address] [place] [place] [address] Care Team Providers Name Role Phone Asked, Pcp Primary Care Physician Unavailable Bria ACEVES Attending Clinician Unavailable Bria Aceves MD Attending Clinician Sharon MAGALLON Attending Clinician Unavailable JOSE Attending Clinician Unavailable Thomas LEVY Attending Clinician Unavailable REENA Attending Clinician Unavailable Bria ACEVES Admitting Clinician Unavailable JOSE Admitting Clinician Unavailable REENA Admitting Clinician Unavailable Problems Condition Condition Condition Status Onset Resolution Last Treating Co mments Source Name Details Category Date Date Treatment Clinician Date CHF CHF Disease Active [facility] (congestiv - Sayra kes - e heart e heart 00:00: Medical failure) failure) 00 Center Acute Acute Disease Active [facility] respirator respirator 5-26 Sayra kes - y y 00:00: Medical insufficie insufficie 00 Ce nter ncy ncy Pleural Pleural Disease Active [facility] effusion effusion 5-22 [facility] 00:[facility]: Medical 00 Center ILD ILD Disease Active [facility] (interstit (interstit 1-19 Sayra kes - ial lung ial lung 00:00: Medica l disease) disease) 00 Center ESRD (end ESRD (end Disease Active [facility] St stage stage 5-26 [facility] - renal renal 00:00: Medical disease) disease) 00 Center on on dialysis dialysis ESRD (end ESRD (end Disease Active [facility] St stage stage 4-03 [facility] - renal renal 00:00: Medical disease) disease) 00 Center No known No known Disease Metho di active active st problems problems Hospit a l ESRD on ESRD on Disease Active [facility] hemodialys hemodialys Sayra kes - is is [facility] Allergies, Adverse Reactions, Alerts This patient has no known allergies or adverse reactions. Social History Social Habit Start Date Stop Date Quantity Comments Source History [facility] Alcohol Std Drinks Hospit al History [facility] Sex Assigned At [facility] Tobacco use and 2018-10-14 2018-10-14 Never used [facility] ke - exposure 00:00:00 00:00:00 [facility] Alcohol intake 2018-10-14 2018-10-14 Current [facility] es - 00:00:00 00:00:00 non-drinker of Medical nter alcohol (finding) History [facility] 2018-07-04 2018-07-04 1 [facility] Alcohol Frequency 00:00:00 00:00:00 [facility] History of tobacco 2015-09-24 Current smoker [facility] - use 00:00:00 [facility] Smoking Status Start Date Stop Date Source Former smoker 2018-10-14 00:00:00 2018-10-14 00:00:00 [facility] Never smoker [facility] Medications Ordered Filled Start Stop Current Ordering Indication Dosage Frequency Signature Comments Components Source Medication Medication Date Date Medication? Clinician (SIG) Name Name Toujeo Max Toujeo Max Yes Na Thomas [address] [facility] SoloStar SoloStar 8-13 daily and Sayra kes - 00:00: increase Memoria 00 by 2 units l every 2 Outpati days until ent FBG less Clinics 100 max of 3 0 units daily. Basaglar Basaglar Yes Na Thomas [address] [address] KwikPen KwikPen 8-12 daily and Luke s - 00:00: titrate up Memoria 00 2 units l every 2 Outpati days until ent FBG less Clinics 100 max of 30 units daily BD Pen BD Pen Yes Na Thomas as [facility] Needle Padmini Needle Padmini 8-12 directed [facility] - 2nd Gen 2nd Gen 00:00: Memoria 00 l [facility] Insulin Insulin Yes Na Thomas as [facility] Syringes Syringes 7-10 directed [place] - (Disposable (Disposable 00:00: Memoria ) ) 00 l [facility] BD Pen BD Pen Yes Na Thomas 1 pen [facility] Needle Needle 7-08 needle [facility] - Original Original 00:00: Memor ia U/F U/F 00 l [facility] Zofran Zofran Yes Na Thomas [address] 6-26 [facility] - 00:00: Memoria 00 l [facility] Novolin Novolin Yes Na Thomas [address] [facility] 70/30 70/30 3-20 in AM and [facility] - 00:00: 5 in PM Memoria l [facility] INSULIN NPH Yes 7U Q.5D Inject [address] HUM/REG 9-06 Units [facility] - INSULIN HM 15:46: subcutaneo M edical (NOVOLIN 18 usly 2 Center 70/30 SUBQ) (two) times daily PATIENT TAKES 7 UNITS IN AM AND 5 UNITS IN PM. carvedilol 2018- Yes 12.5mg Take 12.[address] (COREG) 9-06 mg by [facility] - 6.25 MG 15:46: mouth 2 Medical tablet 18 (two) Center times daily with breakfast and dinner . calcium 2018- Yes 667mg Take 667 [facility] acetate 9-06 mg by [facility] - (PHOSLO) 15:46: mouth 3 Medica l 667 mg 18 (three) Center capsule times daily with meals. mirtazapine 2018-0 Yes 7.5mg QD Take 7.[address] (REMERON) 9-06 mg by [facility] - 7.5 MG 15:46: mouth Medical tablet 18 nightly. Center ondansetron 2018-0 Yes 4mg Take [address] (ZOFRAN) 4 9-06 by mouth 2 [place] - MG tablet 15:46: (two) Medical 18 times Center daily as needed for Nausea. pravastatin 2018-0 Yes 40mg QD Take [address] [facility] (PRAVACHOL) 9-06 by mouth Luke s - 40 MG 15:46: daily. Medical tablet 18 Center folic Yes 1{tbl} QD Take [address] acid-multiv 9-06 tablet by [place] - itamins 15:46: mouth Medical (NEPHRO-VIT 18 daily. Center E) 0.8 mg Tab tablet linaGLIPtin Yes 5mg QD Take [address] (TRADJENTA) 9-06 by mouth Luke s - 5 mg Tab 15:46: daily. Medical 18 Center carvedilol Yes 1mg Q.5D Take 1 mg [facility] (COREG) 5-[address] 6.25 MG 00:00: (two) Hospita tablet 00 times a l day. TRADJENTA 5 Yes 1{tbl} QD Take 1 [facility] mg tablet 4-[address] 00:00: mouth Hospita 00 daily. l mirtazapine Yes 1{tbl} QD Take 1 [facility] (REMERON) 4-[address] 7.5 MG 00:00: mouth Hospita tablet 00 nightly. l ondansetron Yes 1{tbl} Take 1 Me [facility] (ZOFRAN) 4 4-[address] MG tablet 00:00: mouth as Hosp lexi 00 needed. l calcium Yes 2{capsu Q.5D Take 2 Metho di acetate 4-12 le} capsules st (PHOSLO) 00:00: by mouth 2 Hos naga 667 mg 00 (two) l capsule times a day. Carvedilol Carvedilol Yes Na Thomas [address] [facility] with food [facility] Pravastatin Pravastatin Yes Na Thomas [address] Sodium Sodium [facility] Calcium Calcium Yes Na Thomas [address] Acetate Acetate with meals [facility] Mirtazapine Mirtazapine Yes Na Thomas [address] [facility] at bedtime [facility] Procedures This patient has no known procedures. Plan of Care Planned Activity Planned Date Details Comments Source Future Scheduled 2022-02-[address] [facility] - Test 00:00:00 (procedure) [code = [facility] 20691765] Future Scheduled 2020-10-[address] [facility] - Test 00:00:00 (Season Ended) [code = [facility] Center INFLUENZA VACCINE (Season Ended)] Future Scheduled 2017-08-[address] [facility] - Test 00:00:00 WELLNESS (YEAR 2 or Medical Center FIRST YEAR if no IPPE) [code = MEDICARE ANNUAL WELLNESS (YEAR 2 or FIRST YEAR if no IPPE)] Future Scheduled 1994-07-17 DTAP/TDAP/TD VACCINES [facility] Test 00:00:00 (1 - Tdap) [code = Medical C enter DTAP/TDAP/TD VACCINES (1 - Tdap)] Future Scheduled 1987 COVID-19 VACCINE (1) [facility] - Test 00:00:00 [code = COVID-[address] VACCINE (1)] Future Scheduled 1981-07-[address] [facility] - Test 00:00:00 0-64 YRS (1 of 1 - Medical C enter PPSV23) [code = PNEUMOCOCCAL VACCINE 0-64 YRS (1 of 1 - PPSV23)] Future Scheduled COVID-19 VACCINE (1) Met [facility] Test [code = COVID-19 VACCINE (1)] Future Scheduled Hepatitis C screening [facility] Test (procedure) [code = 324877750] Future Scheduled INFLUENZA VACCINE [facility] Test [code = INFLUENZA VACCINE] Encounters Start End Encounter Admission Attending Care Care Encounter Source Date/Time Date/Time Type Type Clinicians Facility Department ID 2020-07-28 2020-07-28 Outpatient [facility] [id number] [facility] 2020-07-28 2020-07-28 Outpatient [facility] [id number] [facility] 2020-07-13 2020-07-13 Outpatient [facility] [id number] [facility] 2020-05-18 2020-05-18 Outpatient [facility] [id number] [facility] 2020-04-22 2020-04-22 Outpatient [facility] [id number] [facility] 2020-01-23 2020-01-23 Outpatient [facility] [id number] [facility] 2019-12-26 2019-12-26 Outpatient [facility] [id number] [facility] 2019-11-25 2019-11-25 Outpatient [facility] [id number] [facility] 2019-11-17 2019-11-17 Outpatient [facility] [id number] [facility] 2019-09-17 2019-09-17 [facility] [id number] 16:43:00 16:43:00 [facility] l Medicine Outpati ent Clinics 2019-09-17 2019-09-17 [facility] [id number] 09:40:00 09:40:00 [facility] [employer] [employer] [facility] l Medicine Outpati ent Clinics 2019-08-15 2019-08-15 [facility] [id number] 15:17:00 15:17:00 [facility] [employer] [employer] [facility] l Medicine Outpati ent Clinics 2019-08-13 2019-08-13 [facility] [id number] 13:34:00 13:34:00 [facility] [employer] [facility] - [facility] Medicine l Medicine Outpati ent Clinics 2019-08-01 2019-08-01 [facility] [id number] 13:00:00 13:00:00 [facility] [employer] [facility] Medicine l Medicine Outpati ent Clinics 2019-04-25 2019-04-25 [facility] [id number] 10:00:00 10:00:00 [facility] InhibOx [place] [facility] Medicine Outpati ent Clinics 2018-09-16 2018-09-16 Office Lee Aceves REZAPratima [id number] 14:44:02 16:08:39 Visit P. AMBULATOR [id number] Y [id number] Results Test Description Test Time Test Comments Results Result Comments Source BASIC METABOLIC PANEL 2018-10-11 08:50:00 Test Item Value Reference Range Interpretation Comme nts SODIUM (BEAKER) (test code 135 meq/L 136-145 L = 381) POTASSIUM (BEAKER) (test 5.0 meq/L 3.5-5.1 code = 379) CHLORIDE (BEAKER) (test 97 meq/L 98-107 L code = 382) CO2 (BEAKER) (test code = 27 meq/L 22-29 355) BLOOD UREA NITROGEN 49 mg/dL 7-21 H (BEAKER) (test code = 354) CREATININE (BEAKER) (test 6.52 mg/dL 0.57-1.25 H code = 358) GLUCOSE RANDOM (BEAKER) 207 mg/dL 70-105 H (test code = 652) CALCIUM (BEAKER) (test code 9.4 mg/dL 8.4-10.2 = 697) EGFR (BEAKER) (test code = 9 mL/min/1.73 sq m ESTIMATED GFR IS NOT 1092) ACCURATE CRE ATININE CLEARANCE IN DE EDICTING GLOMERULAR FILT RATION RATE. ESTIMATED GFR I S NOT APPLICABLE FOR DIALYSIS PATIENTS. HEPATIC FUNCTION [id number] 08:42:00 Test Item Value Reference Range Interpretation Comments TOTAL PROTEIN (BEAKER) (test code = 7.4 gm/dL 6.0-8.3 770) ALBUMIN (BEAKER) (test code = 1145) 3.9 g/dL 3.5-5.0 BILIRUBIN TOTAL (BEAKER) (test code 0.6 mg/dL 0.2-1.2 = 377) BILIRUBIN DIRECT (BEAKER) (test 0.3 mg/dL 0.1-0.5 code = 706) ALKALINE PHOSPHATASE (BEAKER) (test 128 U/L 40-150 code = 346) AST (SGOT) (BEAKER) (test code = 14 U/L 5-34 353) ALT (SGPT) (BEAKER) (test code = 12 U/L 6-55 347) CBC W/PLT COUNT & AUTO [id number] 08:24:00 Test Item Value Reference Range Interpretation Comments WHITE BLOOD CELL COUNT (BEAKER) 6.6 K/ L 3.5-10.5 (test code = 775) RED BLOOD CELL COUNT (BEAKER) 4.14 M/ L 4.63-6.08 L (test code = 761) HEMOGLOBIN (BEAKER) (test code = 12.6 GM/DL 13.7-17.5 L 410) HEMATOCRIT (BEAKER) (test code = 40.2 % 40.1-51.0 411) MEAN CORPUSCULAR VOLUME (BEAKER) 97.1 fL 79.0-92.2 H (test code = 753) MEAN CORPUSCULAR HEMOGLOBIN 30.4 pg 25.7-32.2 (BEAKER) (test code = 751) MEAN CORPUSCULAR HEMOGLOBIN CONC 31.3 GM/DL 32.3-36.5 L (BEAKER) (test code = 752) RED CELL DISTRIBUTION WIDTH 13.9 % 11.6-14.4 (BEAKER) (test code = 412) PLATELET COUNT (BEAKER) (test 146 K/CU MM 150-450 L code = 756) MEAN PLATELET VOLUME (BEAKER) 13.1 fL 9.4-12.4 H (test code = 754) NUCLEATED RED BLOOD CELLS 0 /100 WBC 0-0 (BEAKER) (test code = 413) NEUTROPHILS RELATIVE PERCENT 69 % (BEAKER) (test code = 429) LYMPHOCYTES RELATIVE PERCENT 13 % (BEAKER) (test code = 430) MONOCYTES RELATIVE PERCENT 12 % (BEAKER) (test code = 431) EOSINOPHILS RELATIVE PERCENT 6 % (BEAKER) (test code = 432) BASOPHILS RELATIVE PERCENT 1 % (BEAKER) (test code = 437) NEUTROPHILS ABSOLUTE COUNT 4.57 K/ L 1.78-5.38 (BEAKER) (test code = 670) LYMPHOCYTES ABSOLUTE COUNT 0.84 K/ L 1.32-3.57 L (BEAKER) (test code = 414) MONOCYTES ABSOLUTE COUNT (BEAKER) 0.76 K/ L 0.30-0.82 (test code = 415) EOSINOPHILS ABSOLUTE COUNT 0.38 K/ L 0.04-0.54 (BEAKER) (test code = 416) BASOPHILS ABSOLUTE COUNT (BEAKER) 0.05 K/ L 0.01-0.08 (test code = 417) IMMATURE GRANULOCYTES-RELATIVE 1 % 0-1 PERCENT (BEAKER) (test code = 2801) URINE [id number] 14:09:00 Test Item Value Reference Range Interpretation Comments CULTURE (BEAKER) ENTEROCOCCUS A 20-29,000 c ol/mL (test code = 1095) SPECIES Enterococ cus species Ampicillin (test S code = 26) Linezolid (test code S = 40) Nitrofurantoin (test S code = 23) Tetracycline (test R code = 2) Vancomycin (test S code = 13) <10,000 col/mL skin floraCYTOMEGALOVIRUS ANTIBODY, [id number] 15:13:00 Test Item Value Reference Range Interpretation Comments CYTOMEGALOVIRUS IGM ANTIBODY Negative Negative, Equivocal (BEAKER) (test code = 3437) CMV IgM Result Interpretation: </= 0.8 Al Negative 0.9-1.0 Al Equivocal >/= 1.1 Al PositiveCYTOMEGALOVIRUS ANTIBODY, [id number] 14:29:00 Test Item Value Reference Range Interpretation Comments CYTOMEGALOVIRUS, IGG (BEAKER) Negative Negative, Equivocal (test code = 3429) CMV IgG Result Interpretation: </= 0.8 Al Negative 0.9-1.0 Al Equivocal >/=1.1 Al PositiveEBV ANTIBODY, [id number] 14:29:00 Test Item Value Reference Range Interpretation Comments DELFIN BOB VIRAL CAPSID Positive Negative, Equivocal A ANTIGEN IGG (BEAKER) (test code = 3415) Delfin Bob Viral Capsid Antigen IgG Result Interpretation: </= 0.8 Al Negative 0.9-1.0 Al Equivocal >/= 1.1 Al PositiveEBV ANTIBODY, IGM 2018-09-12 14:29:00 Test Item Value Reference Range Interpretation Comments DELFIN BOB VIRAL CAPSID Negative Negative, Equivocal ANTIGEN IGM (BEAKER) (test code = 3418) Delfin Bob Viral Capsid Antigen IgM Result Interpretation: </= 0.8 Al Negative 0.9-1.0 Al Equivocal >/= 1.1 Al [id number] 11:06:00 Test Item Value Reference Range Interpretation Comments RPR SCREEN (BEAKER) (test code = Nonreactive Nonreactive 420) VARICELLA ZOSTER ANTIBODY, [id number] 09:46:00 Test Item Value Reference Range Interpretation Comments VARICELLA ZOSTER IGG (AL) (BEAKER) 4.5 (test code = 3197) VARICELLA ZOSTER RESULT INTERPRETATIONS: <=0.8 Al Nonreactive: Presumed non-immune to VZV 0.9-1.0 Al Equivocal >=1.1 Al Reactive: Presumed immune to [id number] 14:12:00 Test Item Value Reference Range Interpretation Comments PROSTATE SPECIFIC ANTIGEN (BEAKER) 0.4 ng/mL 0.0-4.0 (test code = 844) HEPATITIS B SURFACE [id number] 13:35:00 Test Item Value Reference Range Interpretation Comments HEPATITIS B SURFACE ANTIGEN (2) Nonreactive Nonreactive (BEAKER) (test code = 2585) HEPATITIS B SURFACE [id number] 13:35:00 Test Item Value Reference Range Interpretation Comments HEPATITIS B SURFACE ANTIBODY 114.8 mIU/mL <8.0 H (BEAKER) (test code = 647) HEPATITIS B CORE ANTIBODY, [id number] 13:35:00 Test Item Value Reference Range Interpretation Comments HEPATITIS B CORE IGM ANTIBODY Nonreactive Nonreactive (BEAKER) (test code = 645) HEPATITIS C [id number] 13:35:00 Test Item Value Reference Range Interpretation Comments HEPATITIS C ANTIBODY (BEAKER) Nonreactive Nonreactive (test code = 367) HIV-1 ANTIGEN WITH HIV-1/2 [id number] 13:35:00 Test Item Value Reference Range Interpretation Comments HIV-1 ANTIGEN WITH HIV 1\\T\\2 Nonreactive Nonreactive ANTIBODY (2) (BEAKER) (test code = 2586) COMPREHENSIVE METABOLIC [id number] 13:24:00 Test Item Value Reference Range Interpretation Comments TOTAL PROTEIN 8.0 gm/dL 6.0-8.3 (BEAKER) (test code = 770) ALBUMIN (BEAKER) 4.1 g/dL 3.5-5.0 (test code = 1145) ALKALINE PHOSPHATASE 143 U/L 40-150 (BEAKER) (test code = 346) BILIRUBIN TOTAL 0.7 mg/dL 0.2-1.2 (BEAKER) (test code = 377) SODIUM (BEAKER) (test 133 meq/L 136-145 L code = 381) POTASSIUM (BEAKER) 5.3 meq/L 3.5-5.1 H (test code = 379) CHLORIDE (BEAKER) 93 meq/L 98-107 L (test code = 382) CO2 (BEAKER) (test 27 meq/L 22-29 code = 355) BLOOD UREA NITROGEN 46 mg/dL 7-21 H (BEAKER) (test code = 354) CREATININE (BEAKER) 7.16 mg/dL 0.57-1.25 H (test code = 358) GLUCOSE RANDOM 181 mg/dL 70-105 H (BEAKER) (test code = 652) CALCIUM (BEAKER) 9.9 mg/dL 8.4-10.2 (test code = 697) AST (SGOT) (BEAKER) 10 U/L 5-34 (test code = 353) ALT (SGPT) (BEAKER) 10 U/L 6-55 (test code = 347) EGFR (BEAKER) (test 8 mL/min/1.73 ESTIMAT ED GFR IS code = 1092) sq m NOT ACCURATE CREATININE CLEARANCE IN PREDICTING GLOMERULAR FILTRATION RATE . ESTIMATED GFR I S NOT APPLICABLE FOR DIALYSIS PATIEN TS. URIC [id number] 13:23:00 Test Item Value Reference Range Interpretation Comments URIC ACID (BEAKER) (test code = 3.6 mg/dL 2.6-7.2 773) [id number] 13:23:00 Test Item Value Reference Range Interpretation Comments PHOSPHORUS (BEAKER) (test code = 3.8 mg/dL 2.3-4.7 604) GAMMA GLUTAMYL TRANSFERASE (GGT)2018-09-11 13:23:00 Test Item Value Reference Range Interpretation Comments GAMMA GLUTAMYL TRANSFERASE (BEAKER) 93 U/L 9-64 H (test code = 364) LACTATE DEHYDROGENASE (LDH)2018-09-11 13:23:00 Test Item Value Reference Range Interpretation Comments LACTATE DEHYDROGENASE (BEAKER) (test 232 U/L 125-220 H code = 635) PTH, [id number] 13:20:00 Test Item Value Reference Range Interpretation Comments PARATHYROID HORMONE INTACT 258.2 pg/mL 8.5-72.5 H (BEAKER) (test code = 577) URINALYSIS W/ [id number] 13:17:00 Test Item Value Reference Range Interpretation Comments COLOR (BEAKER) (test code = 470) Yellow CLARITY (BEAKER) (test code = 469) Hazy SPECIFIC GRAVITY UA (BEAKER) (test 1.011 1.001-1.035 code = 468) PH UA (BEAKER) (test code = 467) 6.5 5.0-8.0 PROTEIN UA (BEAKER) (test code = 600 mg/dL Negative A 464) GLUCOSE UA (BEAKER) (test code = 500 mg/dL Negative A 365) KETONES UA (BEAKER) (test code = Negative Negative 371) BILIRUBIN UA (BEAKER) (test code = Negative Negative 462) BLOOD UA (BEAKER) (test code = 461) Small Negative A NITRITE UA (BEAKER) (test code = Negative Negative 465) LEUKOCYTE ESTERASE UA (BEAKER) Negative Negative (test code = 466) UROBILINOGEN UA (BEAKER) (test code 0.2 mg/dL 0.2-1.0 = 463) RBC UA (BEAKER) (test code = 519) 11 /HPF WBC UA (BEAKER) (test code = 520) 3 /HPF BACTERIA (BEAKER) (test code = 517) Rare CASTS (BEAKER) (test code = 1579) 8 /LPF SOURCE(BEAKER) (test code = 2795) PROTHROMBIN [id number] 12:53:00 Test Item Value Reference Range Interpretation Comments PROTIME (BEAKER) (test code = 13.9 seconds 11.9-14.2 759) INR (BEAKER) (test code = 370) 1.1 <=5.9 Effective 07/03/2018: PT Reference Range ChangeNew: 11.9-14.2 Previous: 11.7- 14.7RECOMMENDED COUMADIN/WARFARIN INR THERAPY RANGESSTANDARD DOSE: 2.0-3.0 Includes: PROPHYLAXIS for venous thrombosis, systemic embolization; TREATMENT for venous thrombosis and/or pulmonary embolus.HIGH RISK: Target INR is2.5-3.5 for patients wiht mechanical heart valves.[id number] 12:53:00 Test Item Value Reference Range Interpretation Comments PROTIME (BEAKER) (test code = 13.9 seconds 11.9-14.2 759) INR (BEAKER) (test code = 370) 1.1 <=5.9 PARTIAL THROMBOPLASTIN TIME 32.5 seconds 22.5-36.0 (BEAKER) (test code = 760) Effective 07/03/2018: PT Reference Range ChangeNew: 11.9-14.2 Previous: 11.7- 14.7RECOMMENDED COUMADIN/WARFARIN INR THERAPY RANGESSTANDARD DOSE: 2.0-3.0 Includes: PROPHYLAXIS for venous thrombosis, systemic embolization; TREATMENT for venous thrombosis and/or pulmonary embolus.HIGH RISK: Target INR is2.5-3.5 for patients wiht mechanical heart valves.CBC W/PLT COUNT & AUTO [id number] 12:46:00 Test Item Value Reference Range Interpretation Comments WHITE BLOOD CELL COUNT (BEAKER) 7.1 K/ L 3.5-10.5 (test code = 775) RED BLOOD CELL COUNT (BEAKER) 4.42 M/ L 4.63-6.08 L (test code = 761) HEMOGLOBIN (BEAKER) (test code = 13.4 GM/DL 13.7-17.5 L 410) HEMATOCRIT (BEAKER) (test code = 43.1 % 40.1-51.0 411) MEAN CORPUSCULAR VOLUME (BEAKER) 97.5 fL 79.0-92.2 H (test code = 753) MEAN CORPUSCULAR HEMOGLOBIN 30.3 pg 25.7-32.2 (BEAKER) (test code = 751) MEAN CORPUSCULAR HEMOGLOBIN CONC 31.1 GM/DL 32.3-36.5 L (BEAKER) (test code = 752) RED CELL DISTRIBUTION WIDTH 13.3 % 11.6-14.4 (BEAKER) (test code = 412) PLATELET COUNT (BEAKER) (test 150 K/CU MM 150-450 code = 756) MEAN PLATELET VOLUME (BEAKER) 12.8 fL 9.4-12.4 H (test code = 754) NUCLEATED RED BLOOD CELLS 0 /100 WBC 0-0 (BEAKER) (test code = 413) NEUTROPHILS RELATIVE PERCENT 60 % (BEAKER) (test code = 429) LYMPHOCYTES RELATIVE PERCENT 18 % (BEAKER) (test code = 430) MONOCYTES RELATIVE PERCENT 12 % (BEAKER) (test code = 431) EOSINOPHILS RELATIVE PERCENT 8 % (BEAKER) (test code = 432) BASOPHILS RELATIVE PERCENT 1 % (BEAKER) (test code = 437) NEUTROPHILS ABSOLUTE COUNT 4.28 K/ L 1.78-5.38 (BEAKER) (test code = 670) LYMPHOCYTES ABSOLUTE COUNT 1.29 K/ L 1.32-3.57 L (BEAKER) (test code = 414) MONOCYTES ABSOLUTE COUNT (BEAKER) 0.84 K/ L 0.30-0.82 H (test code = 415) EOSINOPHILS ABSOLUTE COUNT 0.55 K/ L 0.04-0.54 H (BEAKER) (test code = 416) BASOPHILS ABSOLUTE COUNT (BEAKER) 0.10 K/ L 0.01-0.08 H (test code = 417) IMMATURE GRANULOCYTES-RELATIVE 0 % 0-1 PERCENT (BEAKER) (test code = 2801) MYOCARD IMAGING, MULTI, PHARM, [id number] 15:00:00FINAL REPORT PROCEDURE: MYOCARDIAL PERFUSION SPECT IMAGING (Rest/Stress)CPT CODE: [id number] INDICATION: Q 21.1, N 18.6 CARDIOVASCULAR PROFILE:CAD [...] T-wave inversions.Perfusion: Normal.LVVolume: Normal.RV Volume: Normal. STRESS FINDINGS:HR: 83/min (46% of MPHR)BP: 145/67 mmHgPrelim. EKG: [...] Signed: Nicolas Kimble MDReport Verified Date/Time: 08/28/2018 15:00:13 Reading Location: [address] [facility] Med Reading Room CT, CTA AAA, W/ PARKER.EXT.RUNOFF 2018-06-26 17:55:00Addendum BeginsREPORT STATUS:A ADDENDUM: Study reviewed by radiology. Agree with the nonvascular findings as described below. Signed: Austin Hebert MDReport Verified Date/Time: 06/26/2018 17:55:39 Reading Location: [facility] P048 Angio Body Reading RoomAddendum EndsFINAL REPORT CT [...] CT scanner. Images were obtained before and dur ing the dynamic passage of intravenous contrast material. [...] patent, and no obvious atherosclerosis is present. Senior Datastage Developer dimensions of the left and the right external iliac arteries are 4 and 4 mm, respectively. Similarly, the associated pelvic veins are patent with no venous thrombosis identified. Senior Datastage Developer dimensions of the left and the right external iliac veins 8 - 9 mm, bilaterally. The Hounsfield unit of the pelvic veins are approximately 100, bilaterally. In the left, the left SFA are w idely patent, with only minimal luminal irregularities present. [...] acute aortic pathology, specifically, there is no disse ction, intramural hematoma, or contained rupture. Quantitative dimension of the abdominal aorta areas noted. The pelvic arteries and veins are widely patent with no arterial stenosis or venous thrombosis identified. Senior Dat[employer] Developer dimensions of the left and the right external iliac arteries and veins are as described above. 2. Widely patent mesenteric arteries. 3. Status of the peripheral vasculature is as described above. 4. Other findings as described above. 5. An addendum will be dictated regarding the non-vascular findings by the Director Human Services Radiologist. Signed: Justyn Gillilandeport Verified Date/Time: 06/25/2018 10:00:02 Reading Location: [place] [address] Cardiology MRI AFB CULTURE + [id number] 14:21:00 Test Item Value Reference Range Interpretation Comments CULTURE (BEAKER) (test No acid-fast bacilli code = 1095) isolated in 42 days AFB SMEAR (BEAKER) No acid fast bacilli (test code = 994) seen AFB CULTURE + [id number] 14:21:00 Test Item Value Reference Range Interpretation Comments CULTURE (BEAKER) (test No acid-fast bacilli code = 1095) isolated in 42 days AFB SMEAR (BEAKER) No acid fast bacilli (test code = 994) seen AFB CULTURE + [id number] 14:21:00 Test Item Value Reference Range Interpretation Comments CULTURE (BEAKER) (test No acid-fast bacilli code = 1095) isolated in 42 days AFB SMEAR (BEAKER) No acid fast bacilli (test code = 994) seen AFB CULTURE + [id number] 14:21:00 Test Item Value Reference Range Interpretation Comments CULTURE (BEAKER) (test No acid-fast bacilli code = 1095) isolated in 42 days AFB SMEAR (BEAKER) No acid fast bacilli (test code = 994) seen AFB CULTURE + [id number] 14:21:00 Test Item Value Reference Range Interpretation Comments CULTURE (BEAKER) (test No acid-fast bacilli code = 1095) isolated in 42 days AFB SMEAR (BEAKER) No acid fast bacilli (test code = 994) seen AFB CULTURE + [id number] 14:21:00 Test Item Value Reference Range Interpretation Comments CULTURE (BEAKER) (test No acid-fast bacilli code = 1095) isolated in 42 days AFB SMEAR (BEAKER) No acid fast bacilli (test code = 994) seen AFB CULTURE + [id number] 14:21:00 Test Item Value Reference Range Interpretation Comments CULTURE (BEAKER) (test No acid-fast bacilli code = 1095) isolated in 42 days AFB SMEAR (BEAKER) No acid fast bacilli (test code = 994) seen AFB CULTURE + [id number] 14:21:00 Test Item Value Reference Range Interpretation Comments CULTURE (BEAKER) (test No acid-fast bacilli code = 1095) isolated in 42 days AFB SMEAR (BEAKER) No acid fast bacilli (test code = 994) seen FUNGUS CULTURE + [id number] 16:40:00 Test Item Value Reference Range Interpretation Comments CULTURE (BEAKER) (test No fungus isolated in code = 1095) 28 days FUNGUS SMEAR (BEAKER) No fungi seen (test code = 1406) FUNGUS CULTURE + [id number] 16:40:00 Test Item Value Reference Range Interpretation Comments CULTURE (BEAKER) (test No fungus isolated in code = 1095) 28 days FUNGUS SMEAR (BEAKER) No fungi seen (test code = 1406) FUNGUS CULTURE + [id number] 16:40:00 Test Item Value Reference Range Interpretation Comments CULTURE (BEAKER) (test No fungus isolated in code = 1095) 28 days FUNGUS SMEAR (BEAKER) No fungi seen (test code = 1406) FUNGUS CULTURE + [id number] 16:40:00 Test Item Value Reference Range Interpretation Comments CULTURE (BEAKER) (test No fungus isolated in code = 1095) 28 days FUNGUS SMEAR (BEAKER) No fungi seen (test code = 1406) FUNGUS CULTURE + [id number] 16:40:00 Test Item Value Reference Range Interpretation Comments CULTURE (BEAKER) (test No fungus isolated in code = 1095) 28 days FUNGUS SMEAR (BEAKER) No fungi seen (test code = 1406) FUNGUS CULTURE + [id number] 16:40:00 Test Item Value Reference Range Interpretation Comments CULTURE (BEAKER) (test No fungus isolated in code = 1095) 28 days FUNGUS SMEAR (BEAKER) No fungi seen (test code = 1406) FUNGUS CULTURE + [id number] 16:40:00 Test Item Value Reference Range Interpretation Comments CULTURE (BEAKER) (test No fungus isolated in code = 1095) 28 days FUNGUS SMEAR (BEAKER) No fungi seen (test code = 1406) FUNGUS CULTURE + [id number] 16:40:00 Test Item Value Reference Range Interpretation Comments CULTURE (BEAKER) (test No fungus isolated in code = 1095) 28 days FUNGUS SMEAR (BEAKER) No fungi seen (test code = 1406) POCT-GLUCOSE [id number] 11:56:00 Test Item Value Reference Range Interpretation Comments POC-GLUCOSE METER 247 mg/dL 70-[address] [facility] 6720 (BEAKER) (test code = MARY JO [place] 1538) [address] RAD, CHEST, 1 VIEW, NON [id number] 08:39:00Reason for exam:->s/p decorticationShould this be performed [...] MDReport Verified Date/Time: 07/15/2017 08:39:08 Reading Location: [facility] C013X Ortho Consult Reading Room POCT-GLUCOSE [id number] 07:09:00 Test Item Value Reference Range Interpretation Comments POC-GLUCOSE METER 271 mg/dL 70-[address] [facility] 6720 (BEAKER) (test code = [place] 1538) [address] BASIC METABOLIC [id number] 06:41:00 Test Item Value Reference Range Interpretation Comments SODIUM (BEAKER) 132 meq/L 136-145 L (test code = 381) POTASSIUM (BEAKER) 4.8 meq/L 3.5-5.1 (test code = 379) CHLORIDE (BEAKER) 94 meq/L 98-107 L (test code = 382) CO2 (BEAKER) (test 28 meq/L 22-29 code = 355) BLOOD UREA NITROGEN 25 mg/dL 7-21 H (BEAKER) (test code = 354) CREATININE (BEAKER) 3.94 mg/dL 0.57-1.25 H (test code = 358) GLUCOSE RANDOM 267 mg/dL 70-105 H (BEAKER) (test code = 652) CALCIUM (BEAKER) 9.3 mg/dL 8.4-10.2 (test code = 697) EGFR (BEAKER) (test 17 mL/min/1.73 ESTIMA LUIS MANUEL GFR IS code = 1092) sq m NOT ACCURATE CREATININE CLEARANCE IN PREDICTING GLOMERULAR FILTRATION RATE . ESTIMATED GFR I S NOT APPLICABLE FOR DIALYSIS PATIEN TS. [id number] 06:39:00 Test Item Value Reference Range Interpretation Comments PHOSPHORUS (BEAKER) (test code = 3.2 mg/dL 2.3-4.7 604) [id number] 06:39:00 Test Item Value Reference Range Interpretation Comments MAGNESIUM (BEAKER) (test code = 2.1 mg/dL 1.6-2.6 627) CBC W/PLT COUNT & AUTO [id number] 06:30:00 Test Item Value Reference Range Interpretation Comments WHITE BLOOD CELL COUNT (BEAKER) 14.5 K/ L 3.5-10.5 H (test code = 775) RED BLOOD CELL COUNT (BEAKER) 3.41 M/ L 4.63-6.08 L (test code = 761) HEMOGLOBIN (BEAKER) (test code = 9.2 GM/DL 13.7-17.5 L 410) HEMATOCRIT (BEAKER) (test code = 31.3 % 40.1-51.0 L 411) MEAN CORPUSCULAR VOLUME (BEAKER) 91.8 fL 79.0-92.2 (test code = 753) MEAN CORPUSCULAR HEMOGLOBIN 27.0 pg 25.7-32.2 (BEAKER) (test code = 751) MEAN CORPUSCULAR HEMOGLOBIN CONC 29.4 GM/DL 32.3-36.5 L (BEAKER) (test code = 752) RED CELL DISTRIBUTION WIDTH 19.3 % 11.6-14.4 H (BEAKER) (test code = 412) PLATELET COUNT (BEAKER) (test 351 K/CU MM 150-450 code = 756) MEAN PLATELET VOLUME (BEAKER) 11.4 fL 9.4-12.4 (test code = 754) NUCLEATED RED BLOOD CELLS 0 /100 WBC 0-0 (BEAKER) (test code = 413) NEUTROPHILS RELATIVE PERCENT 79 % (BEAKER) (test code = 429) LYMPHOCYTES RELATIVE PERCENT 7 % (BEAKER) (test code = 430) MONOCYTES RELATIVE PERCENT 10 % (BEAKER) (test code = 431) EOSINOPHILS RELATIVE PERCENT 3 % (BEAKER) (test code = 432) BASOPHILS RELATIVE PERCENT 1 % (BEAKER) (test code = 437) NEUTROPHILS ABSOLUTE COUNT 11.45 K/ L 1.78-5.38 H (BEAKER) (test code = 670) LYMPHOCYTES ABSOLUTE COUNT 0.99 K/ L 1.32-3.57 L (BEAKER) (test code = 414) MONOCYTES ABSOLUTE COUNT (BEAKER) 1.44 K/ L 0.30-0.82 H (test code = 415) EOSINOPHILS ABSOLUTE COUNT 0.41 K/ L 0.04-0.54 ([facility]) (test code = 416) BASOPHILS ABSOLUTE COUNT ([facility]) 0.09 K/ L 0.01-0.08 H (test code = 417) IMMATURE GRANULOCYTES-RELATIVE 1 % 0-1 PERCENT ([facility]) (test code = 2801) [id number] 06:27:00 Test Item Value Reference Range Interpretation Comments PARTIAL THROMBOPLASTIN TIME 40.2 seconds 22.5-36.0 H ([facility]) (test code = 760) PROTHROMBIN [id number] 06:26:00 Test Item Value Reference Range Interpretation Comments PROTIME ([facility]) (test code = 15.2 seconds 11.7-14.7 H 759) INR ([facility]) (test code = 370) 1.2 <=5.9 RECOMMENDED COUMADIN/WARFARIN INR THERAPY RANGESSTANDARD DOSE: 2.0 - 3.0 Includes: PROPHYLAXIS forvenous thrombosis, systemic embolization; TREATMENT for venous thrombosis and/or pulmonary embolus.HIGH RISK: Target INR is 2.5-3.5 for patients with mechanical heart valves.POCT-GLUCOSE [id number] 21:34:00 Test Item Value Reference Range Interpretation Comments POC-GLUCOSE METER 298 mg/dL 70-110 H TESTED AT [place] [address] ([facility]) (test code = MARY JO Macias [facility] 1538) [id number] POCT-GLUCOSE [id number] 17:38:00 Test Item Value Reference Range Interpretation Comments POC-GLUCOSE METER 274 mg/dL 70-110 H TESTED AT [place] [address] ([facility]) (test code = [facility] Gilberto [facility] 1538) [id number] POCT-GLUCOSE [id number] 11:32:00 Test Item Value Reference Range Interpretation Comments POC-GLUCOSE METER 143 mg/dL 70-110 H TESTED AT [place] [address] ([facility]) (test code = [facility] 1538) [address] CBC W/PLT COUNT & AUTO [id number] 10:24:00 Test Item Value Reference Range Interpretation Comments WHITE BLOOD CELL COUNT ([facility]) 16.9 K/ L 3.5-10.5 H (test code = 775) RED BLOOD CELL COUNT (BEAKER) 3.27 M/ L 4.63-6.08 L (test code = 761) HEMOGLOBIN (BEAKER) (test code = 8.8 GM/DL 13.7-17.5 L 410) HEMATOCRIT (BEAKER) (test code = 29.5 % 40.1-51.0 L 411) MEAN CORPUSCULAR VOLUME (BEAKER) 90.2 fL 79.0-92.2 (test code = 753) MEAN CORPUSCULAR HEMOGLOBIN 26.9 pg 25.7-32.2 (BEAKER) (test code = 751) MEAN CORPUSCULAR HEMOGLOBIN CONC 29.8 GM/DL 32.3-36.5 L (BEAKER) (test code = 752) RED CELL DISTRIBUTION WIDTH 19.5 % 11.6-14.4 H (BEAKER) (test code = 412) PLATELET COUNT (BEAKER) (test 360 K/CU MM 150-450 code = 756) MEAN PLATELET VOLUME (BEAKER) 11.6 fL 9.4-12.4 (test code = 754) NUCLEATED RED BLOOD CELLS 0 /100 WBC 0-0 (BEAKER) (test code = 413) (CELLAVISION MANUAL DIFF)[id number] 10:24:00 Test Item Value Reference Range Interpretation Comments NEUTROPHILS - REL 83 % (CELLAVISION)(BEAKER) (test code = 2816) LYMPHOCYTES - REL 10 % (CELLAVISION)(BEAKER) (test code = 2817) MONOCYTES - REL 1 % (CELLAVISION)(BEAKER) (test code = 2818) EOSINOPHILS - REL 6 % (CELLAVISION)(BEAKER) (test code = 2819) NEUTROPHILS - ABS 14.03 K/ul 1.78-5.38 H (CELLAVISION)(BEAKER) (test code = 2830) LYMPHOCYTES - ABS 1.69 K/ul 1.32-3.57 (CELLAVISION)(BEAKER) (test code = 2831) MONOCYTES - ABS 0.17 K/uL 0.30-0.82 L (CELLAVISION)(BEAKER) (test code = 2832) EOSINOPHILS - ABS 1.01 K/uL 0.04-0.54 H (CELLAVISION)(BEAKER) (test code = 2834) TOTAL COUNTED (BEAKER) (test code 100 = 1351) WBC MORPHOLOGY (BEAKER) (test code Normal = 487) PLT MORPHOLOGY (BEAKER) (test code Normal = 486) POLYCHROMATOPHILLIC RBCS(BEAKER) 1+ few (test code = 478) ANISOCYTOSIS (BEAKER) (test code = 1+ few 961) POIKILOCYTES (BEAKER) (test code = 1+ few 966) ARTIFACT (CELLAVISION)(BEAKER) Present (test code = 3432) PLATELET CONCENTRATION Adequate (CELLAVISION)(BEAKER) (test code = 3438) Received comment: User comments: Slide comments:[id number] 10:05:00 Test Item Value Reference Range Interpretation Comments PARTIAL THROMBOPLASTIN TIME 42.3 seconds 22.5-36.0 H (BEAKER) (test code = 760) PROTHROMBIN [id number] 10:04:00 Test Item Value Reference Range Interpretation Comments PROTIME (BEAKER) (test code = 14.9 seconds 11.7-14.7 H 759) INR (BEAKER) (test code = 370) 1.2 <=5.9 RECOMMENDED COUMADIN/WARFARIN INR THERAPY RANGESSTANDARD DOSE: 2.0 - 3.0 Includes: PROPHYLAXIS forvenous thrombosis, systemic embolization; TREATMENT for venous thrombosis and/or pulmonary embolus.HIGH RISK: Target INR is 2.5-3.5 for patients with mechanical heart valves.BASIC METABOLIC [id number] 10:01:00 Test Item Value Reference Range Interpretation Comments SODIUM (BEAKER) 134 meq/L 136-145 L (test code = 381) POTASSIUM (BEAKER) 4.8 meq/L 3.5-5.1 (test code = 379) CHLORIDE (BEAKER) 97 meq/L 98-107 L (test code = 382) CO2 (BEAKER) (test 25 meq/L 22-29 code = 355) BLOOD UREA NITROGEN 40 mg/dL 7-21 H (BEAKER) (test code = 354) CREATININE (BEAKER) 5.79 mg/dL 0.57-1.25 H (test code = 358) GLUCOSE RANDOM 156 mg/dL 70-105 H (BEAKER) (test code = 652) CALCIUM (BEAKER) 9.0 mg/dL 8.4-10.2 (test code = 697) EGFR (BEAKER) (test 11 mL/min/1.73 ESTIMA LUIS MANUEL GFR IS code = 1092) sq m NOT ACCURATE CREATININE CLEARANCE IN PREDICTING GLOMERULAR FILTRATION RATE . ESTIMATED GFR I S NOT APPLICABLE FOR DIALYSIS PATIEN TS. [id number] 09:54:00 Test Item Value Reference Range Interpretation Comments PHOSPHORUS (BEAKER) (test code = 2.7 mg/dL 2.3-4.7 604) [id number] 09:54:00 Test Item Value Reference Range Interpretation Comments MAGNESIUM (BEAKER) (test code = 2.1 mg/dL 1.6-2.6 627) RAD, CHEST, 1 VIEW, NON [id number] 08:55:00Reason for exam:->s/p decorticationShould this be performed at the bedside?->YesFINAL REPORT HISTORY : s/p decortication. Comparison: 07/13/2017 Comment: Single portable view of the chest was obtained. The cardiac silhouette size is enlarged. There is some airspace disease in left mid-lower lung. There is a small right apical pneumothorax. There may be a trace left-sided pleural effusion. No lytic or blastic abnormalities are seen. There is some left apical pleural thickening. There is some diffuse interstitial prominence. Signed: Eliseo Hardy MDReport Verified Date/Time: 07/14/2017 08:55:58 Reading Location: [address] Reading Room POCT-GLUCOSE [id number] 06:57:00 Test Item Value Reference Range Interpretation Comments POC-GLUCOSE METER 192 mg/dL 70-[address] [facility] 6720 [facility] (test code = [place] 1538) [id number] POCT-GLUCOSE [id number] 20:47:00 Test Item Value Reference Range Interpretation Comments POC-GLUCOSE METER 210 mg/dL 70-[address] [facility] 6720 ([employer]) (test code = MARY [place] 1538) [address] POCT-GLUCOSE [id number] 17:02:00 Test Item Value Reference Range Interpretation Comments POC-GLUCOSE METER 174 mg/dL 70-110 H TESTED AT [place] [address] ([facility]) (test code = MARY JO Macias [place] 1538) [address] RAD, CHEST, 1 VIEW, NON [id number] 16:29:00Reason for exam:->s/p right chest tube removalReason [...] partially obscured but stable. Signed: Alexis Desai [facility] Verified Date/Time: 07/13/2017 16:29:39 Reading Location: [facility] C013W Consult Reading Room POCT-GLUCOSE [id number] 11:30:00 Test Item Value Reference Range Interpretation Comments POC-GLUCOSE METER 221 mg/dL 70-[address] [facility] 6720 ([facility]) (test code = MARY JO Macias [place] 1538) [address] CBC W/PLT COUNT & AUTO [id number] 10:16:00 Test Item Value Reference Range Interpretation Comments WHITE BLOOD CELL COUNT (BEAKER) 15.0 K/ L 3.5-10.5 H (test code = 775) RED BLOOD CELL COUNT (BEAKER) 3.46 M/ L 4.63-6.08 L (test code = 761) HEMOGLOBIN (BEAKER) (test code = 9.5 GM/DL 13.7-17.5 L 410) HEMATOCRIT (BEAKER) (test code = 31.6 % 40.1-51.0 L 411) MEAN CORPUSCULAR VOLUME (BEAKER) 91.3 fL 79.0-92.2 (test code = 753) MEAN CORPUSCULAR HEMOGLOBIN 27.5 pg 25.7-32.2 (BEAKER) (test code = 751) MEAN CORPUSCULAR HEMOGLOBIN CONC 30.1 GM/DL 32.3-36.5 L (BEAKER) (test code = 752) RED CELL DISTRIBUTION WIDTH 19.9 % 11.6-14.4 H (BEAKER) (test code = 412) PLATELET COUNT (BEAKER) (test 272 K/CU MM 150-450 code = 756) MEAN PLATELET VOLUME (BEAKER) 11.1 fL 9.4-12.4 (test code = 754) NUCLEATED RED BLOOD CELLS 0 /100 WBC 0-0 (BEAKER) (test code = 413) (CELLAVISION MANUAL DIFF)[id number] 10:16:00 Test Item Value Reference Range Interpretation Comments NEUTROPHILS - REL 74 % (CELLAVISION)(BEAKER) (test code = 2816) LYMPHOCYTES - REL 6 % (CELLAVISION)(BEAKER) (test code = 2817) MONOCYTES - REL 12 % (CELLAVISION)(BEAKER) (test code = 2818) EOSINOPHILS - REL 6 % (CELLAVISION)(BEAKER) (test code = 2819) BASOPHILS - REL 1 % (CELLAVISION)(BEAKER) (test code = 2820) BANDS - REL (CELLAVISION)(BEAKER) 1 % 0-10 (test code = 2826) NEUTROPHILS - ABS 11.10 K/ul 1.78-5.38 H (CELLAVISION)(BEAKER) (test code = 2830) LYMPHOCYTES - ABS 0.90 K/ul 1.32-3.57 L (CELLAVISION)(BEAKER) (test code = 2831) MONOCYTES - ABS 1.80 K/uL 0.30-0.82 H (CELLAVISION)(BEAKER) (test code = 2832) EOSINOPHILS - ABS 0.90 K/uL 0.04-0.54 H (CELLAVISION)(BEAKER) (test code = 2834) BASOPHILS - ABS 0.15 K/uL 0.01-0.08 H (CELLAVISION)(BEAKER) (test code = 2835) BANDS - ABS (CELLAVISION)(BEAKER) 0.15 K/uL 0.00-0.80 (test code = 2840) TOTAL COUNTED (BEAKER) (test code 100 = 1351) WBC MORPHOLOGY (BEAKER) (test code Normal = 487) LARGE PLT(BEAKER) (test code = Present 2156) POLYCHROMATOPHILLIC RBCS(BEAKER) 1+ few (test code = 478) BASOPHILIC STIPPLING (BEAKER) Present (test code = 473) ARTIFACT (CELLAVISION)(BEAKER) Present (test code = 3432) PLATELET CONCENTRATION Adequate (CELLAVISION)(BEAKER) (test code = 3438) Received comment: User comments: Slide comments:RAD, CHEST, 1 VIEW, NON DEPT 2017-07-13 07:39:00Reason for exam:->s/p decorticationShould this be performed [...] partially obscured but stable. Signed: Alexis Desai Verified Date/Time: 07/13/2017 07:39:01 Reading Location: [facility] Radiology Reading Room POCT-GLUCOSE [id number] 07:09:00 Test Item Value Reference Range Interpretation Comments POC-GLUCOSE METER 162 mg/dL 70-[address] [facility] 6720 (BEAKER) (test code = MARY JO Macias [place] 1538) [id number] BASIC METABOLIC [id number] 06:27:00 Test Item Value Reference Range Interpretation Comments SODIUM (BEAKER) 134 meq/L 136-145 L (test code = 381) POTASSIUM (BEAKER) 4.3 meq/L 3.5-5.1 (test code = 379) CHLORIDE (BEAKER) 98 meq/L 98-107 (test code = 382) CO2 (BEAKER) (test 26 meq/L 22-29 code = 355) BLOOD UREA NITROGEN 20 mg/dL 7-21 (BEAKER) (test code = 354) CREATININE (BEAKER) 3.19 mg/dL 0.57-1.25 H (test code = 358) GLUCOSE RANDOM 189 mg/dL 70-105 H (BEAKER) (test code = 652) CALCIUM (BEAKER) 8.6 mg/dL 8.4-10.2 (test code = 697) EGFR (BEAKER) (test 22 mL/min/1.73 ESTIMA LUIS MANUEL GFR IS code = 1092) sq m NOT ACCURATE CREATININE CLEARANCE IN PREDICTING GLOMERULAR FILTRATION RATE . ESTIMATED GFR I S NOT APPLICABLE FOR DIALYSIS PATIEN TS. [id number] 05:45:00 Test Item Value Reference Range Interpretation Comments PHOSPHORUS (BEAKER) (test code = 2.4 mg/dL 2.3-4.7 604) [id number] 05:45:00 Test Item Value Reference Range Interpretation Comments MAGNESIUM (BEAKER) (test code = 2.2 mg/dL 1.6-2.6 627) [id number] 05:21:00 Test Item Value Reference Range Interpretation Comments PARTIAL THROMBOPLASTIN TIME 44.8 seconds 22.5-36.0 H (BEAKER) (test code = 760) PROTHROMBIN [id number] 05:20:00 Test Item Value Reference Range Interpretation Comments PROTIME (BEAKER) (test code = 15.6 seconds 11.7-14.7 H 759) INR (BEAKER) (test code = 370) 1.2 <=5.9 RECOMMENDED COUMADIN/WARFARIN INR THERAPY RANGESSTANDARD DOSE: 2.0 - 3.0 Includes: PROPHYLAXIS forvenous thrombosis, systemic embolization; TREATMENT for venous thrombosis and/or pulmonary embolus.HIGH RISK: Target INR is 2.5-3.5 for patients with mechanical heart valves.POCT-GLUCOSE [id number] 21:30:00 Test Item Value Reference Range Interpretation Comments POC-GLUCOSE METER 366 mg/dL 70-110 H Will Repea t Test/TESTED (BEAKER) (test code = AT [facility] [address] [facility] 2484) [facility] 7[address] 0 POCT-GLUCOSE [id number] 17:57:00 Test Item Value Reference Range Interpretation Comments POC-GLUCOSE METER 122 mg/dL 70-110 H TESTED AT [place] [address] ([facility]) (test code = MARY JO Macias [facility] 1538) [address] RAD, CHEST, 1 VIEW, NON [id number] 12:57:00Reason for exam:->R CT clampedShould this be performed at the bedside?->YesFINAL REPORT Chest one view INDICATION: Right chest tube clamped COMPARISON: at 0834 hours IMPRESSION: A small volume right pneumothorax is minimally larger post right chest tube clamping. A small volume left pneumothorax is stable. Together with pleural effusions, these suggest hydropneumothoraces. Left mid to lower lung consolidation or atelectasis is stable. Mild pulmonary edema persists. Stable right basilar opacities suggest atelectasis. The cardiomediastinal contours are partially obscured but stable. Signed: Alexis Desai MDRort Verified Date/Time: 07/12/2017 12:57:51 Reading Location: [facility] Radiology Reading Room POCT-GLUCOSE [id number] 11:39:00 Test Item Value Reference Range Interpretation Comments POC-GLUCOSE METER 81 mg/dL 70-110 TESTED AT [place] [address] ([facility]) (test code = MARY JO Macias [facility] [address] 1538) RAD, CHEST, 1 VIEW, NON [id number] 08:57:00Reason for exam:->s/p decorticationShould this be performed at the bedside?->YesFINAL REPORT Chest one view INDICATION: Decortication COMPARISON: 07/11/2017 IMPRESSION: A small volume right pneumothorax is [...] MDReport Verified Date/Time: 07/12/2017 08:57:27 Reading Location: [facility] Radiology Reading Room Electronically signed by: ALEXIS DESAI M.D. on07/12/2017 08:57 AMPOCT-GLUCOSE [id number] 07:03:00 Test Item Value Reference Range Interpretation Comments POC-GLUCOSE METER 165 mg/dL 70-[address] [facility] 6720 (BEAKER) (test code = MARY [place] 1538) [address] BASIC METABOLIC [id number] 05:10:00 Test Item Value Reference Range Interpretation Comments SODIUM (BEAKER) 134 meq/L 136-145 L (test code = 381) POTASSIUM (BEAKER) 4.2 meq/L 3.5-5.1 (test code = 379) CHLORIDE (BEAKER) 99 meq/L 98-107 (test code = 382) CO2 (BEAKER) (test 25 meq/L 22-29 code = 355) BLOOD UREA NITROGEN 29 mg/dL 7-21 H (BEAKER) (test code = 354) CREATININE (BEAKER) 4.75 mg/dL 0.57-1.25 H (test code = 358) GLUCOSE RANDOM 79 mg/dL 70-105 (BEAKER) (test code = 652) CALCIUM (BEAKER) 9.3 mg/dL 8.4-10.2 (test code = 697) EGFR (BEAKER) (test 14 mL/min/1.73 ESTIMA LUIS MANUEL GFR IS code = 1092) sq m NOT ACCURATE CREATININE CLEARANCE IN PREDICTING GLOMERULAR FILTRATION RATE . ESTIMATED GFR I S NOT APPLICABLE FOR DIALYSIS PATIEN TS. PROTHROMBIN TIME/[id number] 05:02:00 Test Item Value Reference Range Interpretation Comments PROTIME (BEAKER) (test code = 15.7 seconds 11.7-14.7 H 759) INR (BEAKER) (test code = 370) 1.3 <=5.9 RECOMMENDED COUMADIN/WARFARIN INR THERAPY RANGESSTANDARD DOSE: 2.0 - 3.0 Includes: PROPHYLAXIS forvenous thrombosis, systemic embolization; TREATMENT for venous thrombosis and/or pulmonary embolus.HIGH RISK: Target INR is 2.5-3.5 for patients with mechanical heart valves.[id number] 05:02:00 Test Item Value Reference Range Interpretation Comments PARTIAL THROMBOPLASTIN TIME 45.4 seconds 22.5-36.0 H (BEAKER) (test code = 760) [id number] 04:50:00 Test Item Value Reference Range Interpretation Comments PHOSPHORUS (BEAKER) (test code = 2.1 mg/dL 2.3-4.7 L 604) [id number] 04:50:00 Test Item Value Reference Range Interpretation Comments MAGNESIUM (BEAKER) (test code = 2.2 mg/dL 1.6-2.6 627) CBC W/PLT COUNT & AUTO [id number] 04:47:00 Test Item Value Reference Range Interpretation Comments WHITE BLOOD CELL COUNT (BEAKER) 15.4 K/ L 3.5-10.5 H (test code = 775) RED BLOOD CELL COUNT (BEAKER) 3.74 M/ L 4.63-6.08 L (test code = 761) HEMOGLOBIN (BEAKER) (test code = 10.0 GM/DL 13.7-17.5 L 410) HEMATOCRIT (BEAKER) (test code = 34.1 % 40.1-51.0 L 411) MEAN CORPUSCULAR VOLUME (BEAKER) 91.2 fL 79.0-92.2 (test code = 753) MEAN CORPUSCULAR HEMOGLOBIN 26.7 pg 25.7-32.2 (BEAKER) (test code = 751) MEAN CORPUSCULAR HEMOGLOBIN CONC 29.3 GM/DL 32.3-36.5 L (BEAKER) (test code = 752) RED CELL DISTRIBUTION WIDTH 19.3 % 11.6-14.4 H (BEAKER) (test code = 412) PLATELET COUNT (BEAKER) (test 278 K/CU MM 150-450 code = 756) MEAN PLATELET VOLUME (BEAKER) 11.4 fL 9.4-12.4 (test code = 754) NUCLEATED RED BLOOD CELLS 0 /100 WBC 0-0 (BEAKER) (test code = 413) NEUTROPHILS RELATIVE PERCENT 74 % (BEAKER) (test code = 429) LYMPHOCYTES RELATIVE PERCENT 8 % (BEAKER) (test code = 430) MONOCYTES RELATIVE PERCENT 11 % (BEAKER) (test code = 431) EOSINOPHILS RELATIVE PERCENT 5 % (BEAKER) (test code = 432) BASOPHILS RELATIVE PERCENT 0 % (BEAKER) (test code = 437) NEUTROPHILS ABSOLUTE COUNT 11.48 K/ L 1.78-5.38 H (BEAKER) (test code = 670) LYMPHOCYTES ABSOLUTE COUNT 1.22 K/ L 1.32-3.57 L (BEAKER) (test code = 414) MONOCYTES ABSOLUTE COUNT (BEAKER) 1.68 K/ L 0.30-0.82 H (test code = 415) EOSINOPHILS ABSOLUTE COUNT 0.73 K/ L 0.04-0.54 H (BEAKER) (test code = 416) BASOPHILS ABSOLUTE COUNT (BEAKER) 0.06 K/ L 0.01-0.08 (test code = 417) IMMATURE GRANULOCYTES-RELATIVE 2 % 0-1 H PERCENT ([facility]) (test code = 2801) POCT-GLUCOSE [id number] 21:09:00 Test Item Value Reference Range Interpretation Comments POC-GLUCOSE METER 162 mg/dL 70-110 H TESTED AT [place] [address] ([facility]) (test code = MARY JO Macias [facility] 1538) [id number] POCT-GLUCOSE [id number] 16:53:00 Test Item Value Reference Range Interpretation Comments POC-GLUCOSE METER 222 mg/dL 70-110 H TESTED AT [place] [address] ([facility]) (test code = MARY JO Macias [facility] 1538) [address] POCT-GLUCOSE [id number] 15:26:00 Test Item Value Reference Range Interpretation Comments POC-GLUCOSE METER 141 mg/dL 70-110 H TESTED AT [place] [address] ([facility]) (test code = MARY JO Macias [facility] 1538) [address] POCT-GLUCOSE [id number] 15:04:00 Test Item Value Reference Range Interpretation Comments POC-GLUCOSE METER 49 mg/dL 70-110 L Notified Gilberto Ingram MD/TESTED AT ([facility]) (test code = [place] [address]) [facility] 7703 0 RAD, CHEST, 1 VIEW, NON [id number] 13:07:00Reason for exam:->CT removalShould this be performed [...] Location: [facility] Reading Room POCT-GLUCOSE [id number] 11:48:00 Test Item Value Reference Range Interpretation Comments POC-GLUCOSE METER 166 mg/dL 70-110 H TESTED AT [place] [address] ([facility]) (test code = [place] 1538) [address] RAD, CHEST, 1 VIEW, NON [id number] 08:04:00Reason for exam:->s/p decorticationShould this be performed at the bedside?->YesFINAL REPORT Chest one view INDICATION: Decortication COMPARISON: 07/10/2017 IMPRESSION: The remaining support devices are stable. The bilateral pneumothoraces are grossly stable.Together with dependent pleural effusions, these suggest hydropneumothoraces. Left mid to lower lungconsolidation or atelectasis is stable. Mild pulmonary edema is similar in appearance. Trace right pleural effusion may be present. The cardiomediastinal contours are partially obscured but stable. Signed: Alexis Desai MDReport Verified Date/Time: 07/11/2017 08:04:08 Reading Location: [facility] Radiology Reading Room POCT-GLUCOSE [id number] 07:31:00 Test Item Value Reference Range Interpretation Comments POC-GLUCOSE METER 144 mg/dL 70-110 H TESTED AT [place] [address] ([facility]) (test code = MARY [place] 1538) [id number] 06:13:00 Test Item Value Reference Range Interpretation Comments PHOSPHORUS (BEAKER) (test code = 1.7 mg/dL 2.3-4.7 L 604) [id number] 06:13:00 Test Item Value Reference Range Interpretation Comments MAGNESIUM (BEAKER) (test code = 2.2 mg/dL 1.6-2.6 627) BASIC METABOLIC [id number] 06:13:00 Test Item Value Reference Range Interpretation Comments SODIUM (BEAKER) 138 meq/L 136-145 (test code = 381) POTASSIUM (BEAKER) 3.5 meq/L 3.5-5.1 (test code = 379) CHLORIDE (BEAKER) 100 meq/L 98-107 (test code = 382) CO2 (BEAKER) (test 28 meq/L 22-29 code = 355) BLOOD UREA NITROGEN 15 mg/dL 7-21 (BEAKER) (test code = 354) CREATININE (BEAKER) 2.76 mg/dL 0.57-1.25 H (test code = 358) GLUCOSE RANDOM 42 mg/dL 70-105 L (BEAKER) (test code = 652) CALCIUM (BEAKER) 9.4 mg/dL 8.4-10.2 (test code = 697) EGFR (BEAKER) (test 26 mL/min/1.73 ESTIMA LUIS MANUEL GFR IS code = 1092) sq m NOT ACCURATE CREATININE CLEARANCE IN PREDICTING GLOMERULAR FILTRATION RATE . ESTIMATED GFR I S NOT APPLICABLE FOR DIALYSIS PATIEN TS. POCT-GLUCOSE [id number] 06:02:00 Test Item Value Reference Range Interpretation Comments POC-GLUCOSE METER 94 mg/dL 70-[address] [facility] 6720 (BEAKER) (test code = [place] [address] 1538) [id number] 06:01:00 Test Item Value Reference Range Interpretation Comments PARTIAL THROMBOPLASTIN TIME 33.5 seconds 22.5-36.0 (BEAKER) (test code = 760) PROTHROMBIN [id number] 06:00:00 Test Item Value Reference Range Interpretation Comments PROTIME (BEAKER) (test code = 15.9 seconds 11.7-14.7 H 759) INR (BEAKER) (test code = 370) 1.3 <=5.9 RECOMMENDED COUMADIN/WARFARIN INR THERAPY RANGESSTANDARD DOSE: 2.0 - 3.0 Includes: PROPHYLAXIS forvenous thrombosis, systemic embolization; TREATMENT for venous thrombosis and/or pulmonary embolus.HIGH RISK: Target INR is 2.5-3.5 for patients with mechanical heart valves.CBC W/PLT COUNT & AUTO DIFFERENTIAL 2017-07-11 05:55:00 Test Item Value Reference Range Interpretation Comments WHITE BLOOD CELL COUNT (BEAKER) 14.7 K/ L 3.5-10.5 H (test code = 775) RED BLOOD CELL COUNT (BEAKER) 3.90 M/ L 4.63-6.08 L (test code = 761) HEMOGLOBIN (BEAKER) (test code = 10.3 GM/DL 13.7-17.5 L 410) HEMATOCRIT (BEAKER) (test code = 33.9 % 40.1-51.0 L 411) MEAN CORPUSCULAR VOLUME (BEAKER) 86.9 fL 79.0-92.2 (test code = 753) MEAN CORPUSCULAR HEMOGLOBIN 26.4 pg 25.7-32.2 (BEAKER) (test code = 751) MEAN CORPUSCULAR HEMOGLOBIN CONC 30.4 GM/DL 32.3-36.5 L (BEAKER) (test code = 752) RED CELL DISTRIBUTION WIDTH 18.6 % 11.6-14.4 H (BEAKER) (test code = 412) PLATELET COUNT (BEAKER) (test 238 K/CU MM 150-450 code = 756) MEAN PLATELET VOLUME (BEAKER) 10.4 fL 9.4-12.4 (test code = 754) NUCLEATED RED BLOOD CELLS 0 /100 WBC 0-0 (BEAKER) (test code = 413) NEUTROPHILS RELATIVE PERCENT 72 % (BEAKER) (test code = 429) LYMPHOCYTES RELATIVE PERCENT 6 % (BEAKER) (test code = 430) MONOCYTES RELATIVE PERCENT 14 % (BEAKER) (test code = 431) EOSINOPHILS RELATIVE PERCENT 5 % (BEAKER) (test code = 432) BASOPHILS RELATIVE PERCENT 1 % (BEAKER) (test code = 437) NEUTROPHILS ABSOLUTE COUNT 10.56 K/ L 1.78-5.38 H (BEAKER) (test code = 670) LYMPHOCYTES ABSOLUTE COUNT 0.94 K/ L 1.32-3.57 L (BEAKER) (test code = 414) MONOCYTES ABSOLUTE COUNT (BEAKER) 2.03 K/ L 0.30-0.82 H (test code = 415) EOSINOPHILS ABSOLUTE COUNT 0.76 K/ L 0.04-0.54 H (BEAKER) (test code = 416) BASOPHILS ABSOLUTE COUNT (AKER) 0.07 K/ L 0.01-0.08 (test code = 417) IMMATURE GRANULOCYTES-RELATIVE 2 % 0-1 H PERCENT ([facility]) (test code = 2801) POCT-GLUCOSE [id number] 05:36:00 Test Item Value Reference Range Interpretation Comments POC-GLUCOSE METER 37 mg/dL 70-110 LL TESTED AT [place] [address] ([facility]) (test code = [facility] [address] 1538) POCT-GLUCOSE [id number] 22:37:00 Test Item Value Reference Range Interpretation Comments POC-GLUCOSE METER 136 mg/dL 70-110 H TESTED AT [place] [address] ([facility]) (test code = [facility] 1538) [address] BLOOD [id number] 18:00:00 Test Item Value Reference Range Interpretation Comments CULTURE ([facility]) (test No growth in 5 days code = 1095) POCT-GLUCOSE [id number] 17:39:00 Test Item Value Reference Range Interpretation Comments POC-GLUCOSE METER 184 mg/dL 70-110 H TESTED AT [place] [address] ([facility]) (test code = [facility] 1538) [address] RAD, CHEST, 1 VIEW, NON [id number] 13:48:00Reason for exam:->s/p L ct removalShould this [...] fracture. Signed: Liz Ramirez Verified Date/Time: 07/10/2017 13:48:20 Reading Location: [facility] Radiology Reading Room POCT-GLUCOSE [id number] 13:19:00 Test Item Value Reference Range Interpretation Comments POC-GLUCOSE METER 193 mg/dL 70-[address] [facility] 6720 ([facility]) (test code = MARY JO Macias [facility] 1538) [address] POCT-GLUCOSE [id number] 08:50:00 Test Item Value Reference Range Interpretation Comments POC-GLUCOSE METER 136 mg/dL 70-[address] [facility] 6720 ([facility]) (test code = MARY JO Macias [facility] 1538) [address] PROTHROMBIN [id number] 04:55:00 Test Item Value Reference Range Interpretation Comments PROTIME ([facility]) (test code = 14.7 seconds 11.7-14.7 759) INR ([facility]) (test code = 370) 1.2 <=5.9 RECOMMENDED COUMADIN/WARFARIN INR THERAPY RANGESSTANDARD DOSE: 2.0 - 3.0 Includes: PROPHYLAXIS forvenous thrombosis, systemic embolization; TREATMENT for venous thrombosis and/or pulmonary embolus.HIGH RISK: Target INR is 2.5-3.5 for patients with mechanical heart valves.[id number] 04:55:00 Test Item Value Reference Range Interpretation Comments PARTIAL THROMBOPLASTIN TIME 36.2 seconds 22.5-36.0 H ([facility]) (test code = 760) RAD, CHEST, 1 VIEW, NON [id number] 04:43:00Reason for exam:->s/p decorticationShould this be performed at the bedside?->YesFINAL REPORT Comparison exam: 07/09/2017 Medium-sized right pneumothorax, new when compared to the prior exam. This finding was called to the patient's nurse Lilia on 07/10/2017at 4:40 AM. She will contact the patient's physician. Stable cardiomediastinal contours. Appropriate position of the support hardware. Signed: Jamar Ley Verified Date/Time: 07/10/2017 04:43:24 Reading Location: [address] Reading Room BASIC METABOLIC [id number] 04:42:00 Test Item Value Reference Range Interpretation Comments SODIUM (BEAKER) 128 meq/L 136-145 L (test code = 381) POTASSIUM (BEAKER) 4.9 meq/L 3.5-5.1 (test code = 379) CHLORIDE (BEAKER) 95 meq/L 98-107 L (test code = 382) CO2 (BEAKER) (test 18 meq/L 22-29 L code = 355) BLOOD UREA NITROGEN 57 mg/dL 7-21 H (BEAKER) (test code = 354) CREATININE (BEAKER) 6.01 mg/dL 0.57-1.25 H (test code = 358) GLUCOSE RANDOM 172 mg/dL 70-105 H (BEAKER) (test code = 652) CALCIUM (BEAKER) 9.4 mg/dL 8.4-10.2 (test code = 697) EGFR (BEAKER) (test 10 mL/min/1.73 ESTIMA LUIS MANUEL GFR IS code = 1092) sq m NOT ACCURATE CREATININE CLEARANCE IN PREDICTING GLOMERULAR FILTRATION RATE . ESTIMATED GFR I S NOT APPLICABLE FOR DIALYSIS PATIEN TS. Check Serum Phosphorus level 4 hours after IV phosphorus replacement or 8 hours after PO replacementcompleted.[id number] 04:40:00 Test Item Value Reference Range Interpretation Comments PHOSPHORUS (BEAKER) (test code = 3.9 mg/dL 2.3-4.7 604) Check Serum Phosphorus level 4 hours after IV phosphorus replacement or 8 hours after PO replacementcompleted.[id number] 04:40:00 Test Item Value Reference Range Interpretation Comments MAGNESIUM (BEAKER) (test code = 2.6 mg/dL 1.6-2.6 627) Check Serum Phosphorus level 4 hours after IV phosphorus replacement or 8 hours after PO replacementcompleted.CBC W/PLT COUNT & AUTO [id number] 04:31:00 Test Item Value Reference Range Interpretation Comments WHITE BLOOD CELL COUNT (BEAKER) 16.7 K/ L 3.5-10.5 H (test code = 775) RED BLOOD CELL COUNT (BEAKER) 3.62 M/ L 4.63-6.08 L (test code = 761) HEMOGLOBIN (BEAKER) (test code = 9.9 GM/DL 13.7-17.5 L 410) HEMATOCRIT (BEAKER) (test code = 33.2 % 40.1-51.0 L 411) MEAN CORPUSCULAR VOLUME (BEAKER) 91.7 fL 79.0-92.2 (test code = 753) MEAN CORPUSCULAR HEMOGLOBIN 27.3 pg 25.7-32.2 (BEAKER) (test code = 751) MEAN CORPUSCULAR HEMOGLOBIN CONC 29.8 GM/DL 32.3-36.5 L (BEAKER) (test code = 752) RED CELL DISTRIBUTION WIDTH 17.6 % 11.6-14.4 H (BEAKER) (test code = 412) PLATELET COUNT (BEAKER) (test 230 K/CU MM 150-450 code = 756) MEAN PLATELET VOLUME (BEAKER) 10.8 fL 9.4-12.4 (test code = 754) NUCLEATED RED BLOOD CELLS 0 /100 WBC 0-0 (BEAKER) (test code = 413) NEUTROPHILS RELATIVE PERCENT 70 % (BEAKER) (test code = 429) LYMPHOCYTES RELATIVE PERCENT 10 % (BEAKER) (test code = 430) MONOCYTES RELATIVE PERCENT 12 % (BEAKER) (test code = 431) EOSINOPHILS RELATIVE PERCENT 5 % (BEAKER) (test code = 432) BASOPHILS RELATIVE PERCENT 0 % (BEAKER) (test code = 437) NEUTROPHILS ABSOLUTE COUNT 11.68 K/ L 1.78-5.38 H (BEAKER) (test code = 670) LYMPHOCYTES ABSOLUTE COUNT 1.68 K/ L 1.32-3.57 (BEAKER) (test code = 414) MONOCYTES ABSOLUTE COUNT (BEAKER) 1.97 K/ L 0.30-0.82 H (test code = 415) EOSINOPHILS ABSOLUTE COUNT 0.75 K/ L 0.04-0.54 H (BEAKER) (test code = 416) BASOPHILS ABSOLUTE COUNT (BEAKER) 0.07 K/ L 0.01-0.08 (test code = 417) IMMATURE GRANULOCYTES-RELATIVE 4 % 0-1 H PERCENT (BEAKER) (test code = 2801) POCT-GLUCOSE [id number] 23:54:00 Test Item Value Reference Range Interpretation Comments POC-GLUCOSE METER 446 mg/dL 70-[address] [facility] 6720 (BEAKER) (test code = [place] 1538) [address] POCT-GLUCOSE [id number] 21:41:00 Test Item Value Reference Range Interpretation Comments POC-GLUCOSE METER 320 mg/dL 70-[address] [facility] 6720 (CELESTINA) (test code = MARY JO Macias [facility] 1538) [address] POCT-GLUCOSE [id number] 18:09:00 Test Item Value Reference Range Interpretation Comments POC-GLUCOSE METER 320 mg/dL 70-110 H Notified R Juan Jose BARROW/TESTED ([place]) (test code = AT [facility] 67[address] [facility] 1538) [facility] 7703 0 RAD, CHEST, 1 VIEW, NON [id number] 14:03:00Reason for exam:->CT removalShould this be performed [...] partially obscured but stable. Signed: Alexis Desai Verified Date/Time: 07/09/2017 14:03:19 Reading Location: [facility] Radiology Reading Room CBC W/PLT COUNT & AUTO [id number] 11:17:00 Test Item Value Reference Range Interpretation Comments WHITE BLOOD CELL COUNT (BEAKER) 15.2 K/ L 3.5-10.5 H (test code = 775) RED BLOOD CELL COUNT (BEAKER) 3.31 M/ L 4.63-6.08 L (test code = 761) HEMOGLOBIN (BEAKER) (test code = 8.9 GM/DL 13.7-17.5 L 410) HEMATOCRIT (BEAKER) (test code = 29.2 % 40.1-51.0 L 411) MEAN CORPUSCULAR VOLUME (BEAKER) 88.2 fL 79.0-92.2 (test code = 753) MEAN CORPUSCULAR HEMOGLOBIN 26.9 pg 25.7-32.2 (BEAKER) (test code = 751) MEAN CORPUSCULAR HEMOGLOBIN CONC 30.5 GM/DL 32.3-36.5 L (BEAKER) (test code = 752) RED CELL DISTRIBUTION WIDTH 17.0 % 11.6-14.4 H (BEAKER) (test code = 412) PLATELET COUNT (BEAKER) (test 234 K/CU MM 150-450 code = 756) MEAN PLATELET VOLUME (BEAKER) 11.0 fL 9.4-12.4 (test code = 754) NUCLEATED RED BLOOD CELLS 0 /100 WBC 0-0 (BEAKER) (test code = 413) RAD, CHEST, 1 VIEW, NON [id number] 07:40:00Reason for exam:->s/p decorticationShould this be performed at the bedside?->YesFINAL REPORT Chest one view INDICATION: Status post decortication COMPARISON:07/08/2017 IMPRESSION: Bilateral chest tubes are in place with stable small volume left greater than right sided pneumothoraces. Left greater than right pleural effusions are present. Together these suggest hydropneumothoraces. Left retrocardiac consolidation or atelectasis is stable. There is pulmonary vascular congestion with mild interstitial edema. The cardiomediastinal contours are stable. Signed:Alexis Desaiconnecticut [facility] Verified Date/Time: 07/09/2017 07:40:46 Reading Location: [facility] Radiology Reading Room BLOOD GAS, ARTERIAL 2017-07-09 06:35:00 Test Item Value Reference Range Interpretation Comments PH ARTERIAL (BEAKER) (test code = 7.36 7.35-7.45 383) PCO2 ARTERIAL (BEAKER) (test code 46 mmHg 35-45 H = 384) PO2 ARTERIAL (BEAKER) (test code 156 mmHg 80-90 H = 385) O2 SATURATION ARTERIAL (BEAKER) 98.9 % 96.0-97.0 H (test code = 386) HCO3 ARTERIAL (BEAKER) (test code 25 mmol/L 21-29 = 388) BASE EXCESS ARTERIAL (BEAKER) -0.8 mmol/L -2.0-3.0 (test code = 387) PATIENT TEMPERATURE (BEAKER) 37.0 C (test code = 1818) FIO2 (BEAKER) (test code = 1819) 24.0 % [id number] 05:56:00 Test Item Value Reference Range Interpretation Comments PREALBUMIN (BEAKER) (test code = 12 mg/dL 14-45 L 586) PROTHROMBIN [id number] 05:41:00 Test Item Value Reference Range Interpretation Comments PROTIME (BEAKER) (test code = 15.3 seconds 11.7-14.7 H 759) INR (BEAKER) (test code = 370) 1.2 <=5.9 RECOMMENDED COUMADIN/WARFARIN INR THERAPY RANGESSTANDARD DOSE: 2.0 - 3.0 Includes: PROPHYLAXIS forvenous thrombosis, systemic embolization; TREATMENT for venous thrombosis and/or pulmonary embolus.HIGH RISK: Target INR is 2.5-3.5 for patients with mechanical heart valves.[id number] 05:41:00 Test Item Value Reference Range Interpretation Comments PARTIAL THROMBOPLASTIN TIME 47.6 seconds 22.5-36.0 H (BEAKER) (test code = 760) BASIC METABOLIC [id number] 05:37:00 Test Item Value Reference Range Interpretation Comments SODIUM (BEAKER) 129 meq/L 136-145 L (test code = 381) POTASSIUM (BEAKER) 4.7 meq/L 3.5-5.1 (test code = 379) CHLORIDE (BEAKER) 95 meq/L 98-107 L (test code = 382) CO2 (BEAKER) (test 22 meq/L 22-29 code = 355) BLOOD UREA NITROGEN 41 mg/dL 7-21 H (BEAKER) (test code = 354) CREATININE (BEAKER) 4.66 mg/dL 0.57-1.25 H (test code = 358) GLUCOSE RANDOM 305 mg/dL 70-105 H (BEAKER) (test code = 652) CALCIUM (BEAKER) 9.1 mg/dL 8.4-10.2 (test code = 697) EGFR (BEAKER) (test 14 mL/min/1.73 ESTIMA LUIS MANUEL GFR IS code = 1092) sq m NOT ACCURATE CREATININE CLEARANCE IN PREDICTING GLOMERULAR FILTRATION RATE . ESTIMATED GFR I S NOT APPLICABLE FOR DIALYSIS PATIEN TS. PROTEIN, [id number] 05:36:00 Test Item Value Reference Range Interpretation Comments TOTAL PROTEIN (BEAKER) (test code = 5.9 gm/dL 6.0-8.3 L 770) [id number] 05:36:00 Test Item Value Reference Range Interpretation Comments MAGNESIUM (BEAKER) (test code = 2.5 mg/dL 1.6-2.6 627) [id number] 05:36:00 Test Item Value Reference Range Interpretation Comments PHOSPHORUS (BEAKER) (test code = 3.6 mg/dL 2.3-4.7 604) [id number] 05:36:00 Test Item Value Reference Range Interpretation Comments ALBUMIN (BEAKER) (test code = 1145) 2.6 g/dL 3.5-5.0 L POCT-GLUCOSE [id number] 21:11:00 Test Item Value Reference Range Interpretation Comments POC-GLUCOSE METER 411 mg/dL 70-110 HH Notified R Juan Jose BARROW/TESTED (BEAKER) (test code = AT [facility] [address] [facility]) [facility] 7703 0 POCT-GLUCOSE [id number] 17:23:00 Test Item Value Reference Range Interpretation Comments POC-GLUCOSE METER 277 mg/dL 70-[address] [facility] 67 (BEAKER) (test code = MARY JO Macias [facility] 1538) [address] [id number] 15:36:00 Test Item Value Reference Range Interpretation Comments MAGNESIUM (BEAKER) (test code = 2.6 mg/dL 1.6-2.6 627) CBC W/PLT COUNT & AUTO [id number] 12:20:00 Test Item Value Reference Range Interpretation Comments WHITE BLOOD CELL COUNT (BEAKER) 13.6 K/ L 3.5-10.5 H (test code = 775) RED BLOOD CELL COUNT (BEAKER) 3.38 M/ L 4.63-6.08 L (test code = 761) HEMOGLOBIN (BEAKER) (test code = 9.0 GM/DL 13.7-17.5 L 410) HEMATOCRIT (BEAKER) (test code = 29.9 % 40.1-51.0 L 411) MEAN CORPUSCULAR VOLUME (BEAKER) 88.5 fL 79.0-92.2 (test code = 753) MEAN CORPUSCULAR HEMOGLOBIN 26.6 pg 25.7-32.2 (BEAKER) (test code = 751) MEAN CORPUSCULAR HEMOGLOBIN CONC 30.1 GM/DL 32.3-36.5 L (BEAKER) (test code = 752) RED CELL DISTRIBUTION WIDTH 16.8 % 11.6-14.4 H (BEAKER) (test code = 412) PLATELET COUNT (BEAKER) (test 213 K/CU MM 150-450 code = 756) MEAN PLATELET VOLUME (BEAKER) 10.7 fL 9.4-12.4 (test code = 754) NUCLEATED RED BLOOD CELLS 0 /100 WBC 0-0 (BEAKER) (test code = 413) POCT-GLUCOSE [id number] 11:48:00 Test Item Value Reference Range Interpretation Comments POC-GLUCOSE METER 255 mg/dL 70-[address] [facility] 6720 (AKER) (test code = MARY JO Macias [facility] 1538) [address] POCT-GLUCOSE [id number] 08:25:00 Test Item Value Reference Range Interpretation Comments POC-GLUCOSE METER 307 mg/dL 70-110 H Notified Gilberto Ingram MD/TESTED (AKER) (test code = AT [facility] [address]) [facility] 7703 0 BLOOD GAS, [id number] 05:27:00 Test Item Value Reference Range Interpretation Comments PH ARTERIAL (BEAKER) (test code = 7.39 7.35-7.45 383) PCO2 ARTERIAL (BEAKER) (test code 48 mmHg 35-45 H = 384) PO2 ARTERIAL (BEAKER) (test code = 122 mmHg 80-90 H 385) O2 SATURATION ARTERIAL (BEAKER) 98.4 % 96.0-97.0 H (test code = 386) HCO3 ARTERIAL (BEAKER) (test code 28 mmol/L 21-29 = 388) BASE EXCESS ARTERIAL (BEAKER) 2.4 mmol/L -2.0-3.0 (test code = 387) PATIENT TEMPERATURE (BEAKER) (test 36.5 C code = 1818) FIO2 (BEAKER) (test code = 1819) 21.0 % [id number] 05:20:00 Test Item Value Reference Range Interpretation Comments PHOSPHORUS (BEAKER) (test code = 1.3 mg/dL 2.3-4.7 LL 604) BASIC METABOLIC [id number] 05:18:00 Test Item Value Reference Range Interpretation Comments SODIUM (BEAKER) 133 meq/L 136-145 L (test code = 381) POTASSIUM (BEAKER) 4.5 meq/L 3.5-5.1 (test code = 379) CHLORIDE (BEAKER) 97 meq/L 98-107 L (test code = 382) CO2 (BEAKER) (test 25 meq/L 22-29 code = 355) BLOOD UREA NITROGEN 20 mg/dL 7-21 (BEAKER) (test code = 354) CREATININE (BEAKER) 2.87 mg/dL 0.57-1.25 H (test code = 358) GLUCOSE RANDOM 302 mg/dL 70-105 H (BEAKER) (test code = 652) CALCIUM (BEAKER) 9.0 mg/dL 8.4-10.2 (test code = 697) EGFR (BEAKER) (test 24 mL/min/1.73 ESTIMA LUIS MANUEL GFR IS code = 1092) sq m NOT ACCURATE CREATININE CLEARANCE IN PREDICTING GLOMERULAR FILTRATION RATE . ESTIMATED GFR I S NOT APPLICABLE FOR DIALYSIS PATIEN TS. [id number] 05:17:00 Test Item Value Reference Range Interpretation Comments MAGNESIUM (BEAKER) (test code = 1.9 mg/dL 1.6-2.6 627) RAD, CHEST, 1 VIEW, NON [id number] 05:01:00Reason for exam:->s/p decorticationShould this be performed at the bedside?->YesFINAL REPORT Comparison exam: 07/07/2017 Small bilateral pneumothoraces. Smallstable left pleural effusion. Stable cardiomediastinal contours. Appropriate position of the support hardware. Signed: Jamar Ley Verified Date/Time: 07/08/2017 05:01:59 Reading Location: [address] Reading Room [id number] 04:53:00 Test Item Value Reference Range Interpretation Comments PARTIAL THROMBOPLASTIN TIME 50.4 seconds 22.5-36.0 H (BEAKER) (test code = 760) PROTHROMBIN [id number] 04:52:00 Test Item Value Reference Range Interpretation Comments PROTIME (BEAKER) (test code = 15.8 seconds 11.7-14.7 H 759) INR (BEAKER) (test code = 370) 1.3 <=5.9 RECOMMENDED COUMADIN/WARFARIN INR THERAPY RANGESSTANDARD DOSE: 2.0 - 3.0 Includes: PROPHYLAXIS forvenous thrombosis, systemic embolization; TREATMENT for venous thrombosis and/or pulmonary embolus.HIGH RISK: Target INR is 2.5-3.5 for patients with mechanical heart valves.ANAEROBIC [id number] 01:38:00 Test Item Value Reference Range Interpretation Comments CULTURE (BEAKER) (test No anaerobes isolated code = 1095) ANAEROBIC [id number] 01:38:00 Test Item Value Reference Range Interpretation Comments CULTURE (BEAKER) (test No anaerobes isolated code = 1095) ANAEROBIC [id number] 01:38:00 Test Item Value Reference Range Interpretation Comments CULTURE (BEAKER) (test No anaerobes isolated code = 1095) POCT-GLUCOSE [id number] 21:36:00 Test Item Value Reference Range Interpretation Comments POC-GLUCOSE METER 265 mg/dL 70-110 H TESTED AT [place] [id number] ([facility]) (test code = [place] 15[address]) [id number] POCT-GLUCOSE [id number] 16:24:00 Test Item Value Reference Range Interpretation Comments POC-GLUCOSE METER 119 mg/dL 70-[address] [facility] 67 ([facility]) (test code = [place] 1538) [address] CBC W/PLT COUNT & AUTO [id number] 15:44:00 Test Item Value Reference Range Interpretation Comments WHITE BLOOD CELL COUNT (BEAKER) 11.8 K/ L 3.5-10.5 H (test code = 775) RED BLOOD CELL COUNT (AKER) 3.20 M/ L 4.63-6.08 L (test code = 761) HEMOGLOBIN (BEAKER) (test code = 8.6 GM/DL 13.7-17.5 L 410) HEMATOCRIT (BEAKER) (test code = 29.3 % 40.1-51.0 L 411) MEAN CORPUSCULAR VOLUME (BEAKER) 91.6 fL 79.0-92.2 (test code = 753) MEAN CORPUSCULAR HEMOGLOBIN 26.9 pg 25.7-32.2 (BEAKER) (test code = 751) MEAN CORPUSCULAR HEMOGLOBIN CONC 29.4 GM/DL 32.3-36.5 L (BEAKER) (test code = 752) RED CELL DISTRIBUTION WIDTH 17.0 % 11.6-14.4 H (BEAKER) (test code = 412) PLATELET COUNT (BEAKER) (test 257 K/CU MM 150-450 code = 756) MEAN PLATELET VOLUME (BEAKER) 10.8 fL 9.4-12.4 (test code = 754) NUCLEATED RED BLOOD CELLS 0 /100 WBC 0-0 (BEAKER) (test code = 413) POCT-GLUCOSE [id number] 12:13:00 Test Item Value Reference Range Interpretation Comments POC-GLUCOSE METER 195 mg/dL 70-110 H TESTED AT [place] [address] ([facility]) (test code = MARY [place] [facility] 1538) [address] POCT-GLUCOSE [id number] Test Item Value Reference Range Interpretation Comments POC-GLUCOSE METER 76 mg/dL 70-110 TESTED AT [place] [address] ([facility]) (test code = [place] [facility] [address] 1538) POCT-GLUCOSE [id number] 09:12:00 Test Item Value Reference Range Interpretation Comments POC-GLUCOSE METER 60 mg/dL 70-110 L Will Repea t Test/TESTED (BEAKER) (test code = AT [address] 1538) [facility] [address] BLOOD GAS, [id number] 06:33:00 Test Item Value Reference Range Interpretation Comments PH ARTERIAL (BEAKER) (test code = 7.38 7.35-7.45 383) PCO2 ARTERIAL (BEAKER) (test code 47 mmHg 35-45 H = 384) PO2 ARTERIAL (BEAKER) (test code = 171 mmHg 80-90 H 385) O2 SATURATION ARTERIAL (BEAKER) 99.1 % 96.0-97.0 H (test code = 386) HCO3 ARTERIAL (BEAKER) (test code 28 mmol/L 21-29 = 388) BASE EXCESS ARTERIAL (BEAKER) 2.1 mmol/L -2.0-3.0 (test code = 387) PATIENT TEMPERATURE (BEAKER) (test 37.0 C code = 1818) FIO2 (BEAKER) (test code = 1819) 28.0 % [id number] 06:10:00 Test Item Value Reference Range Interpretation Comments PARTIAL THROMBOPLASTIN TIME 47.3 seconds 22.5-36.0 H (BEAKER) (test code = 760) PROTHROMBIN [id number] 06:09:00 Test Item Value Reference Range Interpretation Comments PROTIME (BEAKER) (test code = 14.6 seconds 11.7-14.7 759) INR (BEAKER) (test code = 370) 1.1 <=5.9 RECOMMENDED COUMADIN/WARFARIN INR THERAPY RANGESSTANDARD DOSE: 2.0 - 3.0 Includes: PROPHYLAXIS forvenous thrombosis, systemic embolization; TREATMENT for venous thrombosis and/or pulmonary embolus.HIGH RISK: Target INR is 2.5-3.5 for patients with mechanical heart valves.BASIC METABOLIC [id number] 05:54:00 Test Item Value Reference Range Interpretation Comments SODIUM (BEAKER) 139 meq/L 136-145 (test code = 381) POTASSIUM (BEAKER) 3.9 meq/L 3.5-5.1 (test code = 379) CHLORIDE (BEAKER) 103 meq/L 98-107 (test code = 382) CO2 (BEAKER) (test 26 meq/L 22-29 code = 355) BLOOD UREA NITROGEN 39 mg/dL 7-21 H (BEAKER) (test code = 354) CREATININE (BEAKER) 4.62 mg/dL 0.57-1.25 H (test code = 358) GLUCOSE RANDOM 86 mg/dL 70-105 (BEAKER) (test code = 652) CALCIUM (BEAKER) 9.1 mg/dL 8.4-10.2 (test code = 697) EGFR (BEAKER) (test 14 mL/min/1.73 ESTIMA LUIS MANUEL GFR IS code = 1092) sq m NOT ACCURATE CREATININE CLEARANCE IN PREDICTING GLOMERULAR FILTRATION RATE . ESTIMATED GFR I S NOT APPLICABLE FOR DIALYSIS PATIEN TS. [id number] 05:52:00 Test Item Value Reference Range Interpretation Comments PHOSPHORUS (BEAKER) (test code = 2.0 mg/dL 2.3-4.7 L 604) [id number] 05:52:00 Test Item Value Reference Range Interpretation Comments MAGNESIUM (BEAKER) (test code = 2.3 mg/dL 1.6-2.6 627) RAD, CHEST, 1 VIEW, NON [id number] 04:34:00Reason for exam:->s/p decorticationShould this be performed at the bedside?->YesFINAL REPORT Comparison exam: 07/06/2017 Interval improvement in the right pneumothorax. Small bilateral pneumothoraces remain. Left lower lobe atelectasis/consolidation, unchanged. Stable cardiomediastinal contours. Appropriate position of the support hardware. Signed: Jamar Ley MDReport Verified Date/Time: 07/07/2017 04:34:32 Reading Location: [address] Reading Room POCT-GLUCOSE [id number] 00:10:00 Test Item Value Reference Range Interpretation Comments POC-GLUCOSE METER 202 mg/dL 70-110 H TESTED AT [place] [address] ([facility]) (test code = MARY [place] [facility] 1538) [address] POCT-GLUCOSE [id number] 18:01:00 Test Item Value Reference Range Interpretation Comments POC-GLUCOSE METER 364 mg/dL 70-110 H TESTED AT [place] [address] ([facility]) (test code = MARY [place] [facility] 1538) [address] RAD, CHEST, 1 VIEW, NON [id number] 14:24:00Reason for exam:->R CT to water sealShould [...] stable and partially obscured. Signed: Williams Ramirez MDReport Verified Date/Time: 07/06/2017 14:24:47 Reading Location: [facility] Women POCT-GLUCOSE [id number] 12:18:00 Test Item Value Reference Range Interpretation Comments POC-GLUCOSE METER 254 mg/dL 70-[address] [facility] 6720 (BEAKER) (test code = MARY [place] 1538) [address] CBC W/PLT COUNT & AUTO [id number] 11:25:00 Test Item Value Reference Range Interpretation Comments WHITE BLOOD CELL COUNT (BEAKER) 13.3 K/ L 3.5-10.5 H (test code = 775) RED BLOOD CELL COUNT (BEAKER) 3.07 M/ L 4.63-6.08 L (test code = 761) HEMOGLOBIN (BEAKER) (test code = 8.2 GM/DL 13.7-17.5 L 410) HEMATOCRIT (BEAKER) (test code = 27.2 % 40.1-51.0 L 411) MEAN CORPUSCULAR VOLUME (BEAKER) 88.6 fL 79.0-92.2 (test code = 753) MEAN CORPUSCULAR HEMOGLOBIN 26.7 pg 25.7-32.2 (BEAKER) (test code = 751) MEAN CORPUSCULAR HEMOGLOBIN CONC 30.1 GM/DL 32.3-36.5 L (BEAKER) (test code = 752) RED CELL DISTRIBUTION WIDTH 16.9 % 11.6-14.4 H (BEAKER) (test code = 412) PLATELET COUNT (BEAKER) (test 235 K/CU MM 150-450 code = 756) MEAN PLATELET VOLUME (BEAKER) 10.5 fL 9.4-12.4 (test code = 754) NUCLEATED RED BLOOD CELLS 0 /100 WBC 0-0 (BEAKER) (test code = 413) RAD, CHEST, 1 VIEW, NON [id number] 07:44:00Reason for exam:->s/p decorticationShould this be performed at the bedside?->YesFINAL REPORT Chest one view compared to July 05 Discussion: Small upper chest pneumothoraces are grossly similar. Bilateral chest tubes in place. Left effusion and ill-defined left lung airspace opacities are noted. Mild pulmonary congestion. IMPRESSIONS: No change Signed: Cata Montanoeport Verified Date/Time: 07/06/2017 07:44:08 Reading Location: [facility] Room POCT-GLUCOSE [id number] 06:46:00 Test Item Value Reference Range Interpretation Comments POC-GLUCOSE METER 123 mg/dL 70-[address] [facility] 6720 (BEAKER) (test code = [place] 1538) [id number] BASIC METABOLIC [id number] 05:13:00 Test Item Value Reference Range Interpretation Comments SODIUM (BEAKER) 140 meq/L 136-145 (test code = 381) POTASSIUM (BEAKER) 4.0 meq/L 3.5-5.1 (test code = 379) CHLORIDE (BEAKER) 104 meq/L 98-107 (test code = 382) CO2 (BEAKER) (test 27 meq/L 22-29 code = 355) BLOOD UREA NITROGEN 16 mg/dL 7-21 (BEAKER) (test code = 354) CREATININE (BEAKER) 2.62 mg/dL 0.57-1.25 H (test code = 358) GLUCOSE RANDOM 115 mg/dL 70-105 H (BEAKER) (test code = 652) CALCIUM (BEAKER) 9.6 mg/dL 8.4-10.2 (test code = 697) EGFR (BEAKER) (test 27 mL/min/1.73 ESTIMA LUIS MANUEL GFR IS code = 1092) sq m NOT ACCURATE CREATININE CLEARANCE IN PREDICTING GLOMERULAR FILTRATION RATE . ESTIMATED GFR I S NOT APPLICABLE FOR DIALYSIS PATIEN TS. [id number] 05:08:00 Test Item Value Reference Range Interpretation Comments PHOSPHORUS (BEAKER) (test code = 1.7 mg/dL 2.3-4.7 L 604) [id number] 05:08:00 Test Item Value Reference Range Interpretation Comments MAGNESIUM (BEAKER) (test code = 2.1 mg/dL 1.6-2.6 627) BLOOD GAS, [id number] 05:04:00 Test Item Value Reference Range Interpretation Comments PH ARTERIAL (BEAKER) (test code = 7.53 7.35-7.45 H 383) PCO2 ARTERIAL (BEAKER) (test code 35 mmHg 35-45 = 384) PO2 ARTERIAL (BEAKER) (test code = 203 mmHg 80-90 H 385) O2 SATURATION ARTERIAL (BEAKER) 99.5 % 96.0-97.0 H (test code = 386) HCO3 ARTERIAL (BEAKER) (test code 29 mmol/L 21-29 = 388) BASE EXCESS ARTERIAL (BEAKER) 5.6 mmol/L -2.0-3.0 H (test code = 387) PATIENT TEMPERATURE (BEAKER) (test 37.0 C code = 1818) FIO2 (BEAKER) (test code = 1819) 30.0 % [id number] 04:42:00 Test Item Value Reference Range Interpretation Comments PARTIAL THROMBOPLASTIN TIME 45.3 seconds 22.5-36.0 H (BEAKER) (test code = 760) PROTHROMBIN [id number] 04:41:00 Test Item Value Reference Range Interpretation Comments PROTIME (BEAKER) (test code = 14.6 seconds 11.7-14.7 759) INR (BEAKER) (test code = 370) 1.1 <=5.9 RECOMMENDED COUMADIN/WARFARIN INR THERAPY RANGESSTANDARD DOSE: 2.0 - 3.0 Includes: PROPHYLAXIS forvenous thrombosis, systemic embolization; TREATMENT for venous thrombosis and/or pulmonary embolus.HIGH RISK: Target INR is 2.5-3.5 for patients with mechanical heart valves.POCT-GLUCOSE [id number] 00:15:00 Test Item Value Reference Range Interpretation Comments POC-GLUCOSE METER 122 mg/dL 70-[address] [facility] 6720 (BEAKER) (test code = MARY [place] 6[address]) [address] URINALYSIS W/ REFLEX URINE [id number] 23:02:00 Test Item Value Reference Range Interpretation Comments COLOR (BEAKER) (test code = 470) Yellow CLARITY (BEAKER) (test code = 469) Hazy SPECIFIC GRAVITY UA (BEAKER) (test 1.016 1.001-1.035 code = 468) PH UA (BEAKER) (test code = 467) 6.5 5.0-8.0 PROTEIN UA (BEAKER) (test code = 600 mg/dL Negative A 464) GLUCOSE UA (BEAKER) (test code = 500 mg/dL Negative A 365) KETONES UA (BEAKER) (test code = Negative Negative 371) BILIRUBIN UA (BEAKER) (test code = Negative Negative 462) BLOOD UA (BEAKER) (test code = Negative Negative 461) NITRITE UA (BEAKER) (test code = Negative Negative 465) LEUKOCYTE ESTERASE UA (BEAKER) Negative Negative (test code = 466) UROBILINOGEN UA (BEAKER) (test 0.2 mg/dL 0.2-1.0 code = 463) RBC UA (BEAKER) (test code = 519) 4 /HPF WBC UA (BEAKER) (test code = 520) 2 /HPF BACTERIA (BEAKER) (test code = Occasional 517) SOURCE(BEAKER) (test code = 2795) RAD, CHEST, 1 VIEW, NON [id number] 20:06:00Reason for exam:- >hypoxiaShould this be performed at the bedside?->YesFINAL REPORT Comparison exam: 07/05/2017 time 6:14 AM Small bilateral pneumoth oraces, improved on the left when compared to the prior exam. Stable cardiomediastinal contours. Appropriate position of the support hardware. Signed: [facility]ar [facility] Verified Date/Time:07/05/2017 20:06:44 Reading Location: [address] Reading Room TISSUE [id number] 19:06:00Surgical Pathology Report Case: [id number] Authorizing Provider: Guillermo Snow MD Collected: 06/30/2017 1118 Ordering Location: [address] Received: 07/03/2017 2966 Service Pathologist: Frantz Ruiz MD Specimens: A) - Lung, Left Lower Lobe, Left lower lobe peel B) -Lung, Left Upper Lobe, Left upper lobe peel A. LUNG, LEFT LOWER LOBE, PLEURAL DECORTICATION: - ORGANIZING PLEURITIS - NEGATIVE FOR MALIGNANCYB. LUNG, LEFT LOWER LOBE, PLEURAL DECORTICATION: - ORGANIZING PLEURITIS - NEGATIVE FOR MALIGNANCY Signing Pathologist Direct Phone Line: [phone] signed by Frantz Ruiz MD on 07/05/2017 at 7:06 [id number] pleural effusionA. Left lower lobe peel; B. [...] entirely B1 to B3. CG/pl Performed.BLOOD GAS, [id number] 17:59:00 Test Item Value Reference Range Interpretation Comments PH ARTERIAL (BEAKER) (test code = 7.37 7.35-7.45 383) PCO2 ARTERIAL (BEAKER) (test code 47 mmHg 35-45 H = 384) PO2 ARTERIAL (BEAKER) (test code = 60 mmHg 80-90 L 385) O2 SATURATION ARTERIAL (BEAKER) 91.7 % 96.0-97.0 L (test code = 386) HCO3 ARTERIAL (BEAKER) (test code 27 mmol/L 21-29 = 388) BASE EXCESS ARTERIAL (BEAKER) 1.2 mmol/L -2.0-3.0 (test code = 387) PATIENT TEMPERATURE (BEAKER) (test 35.8 C code = 1818) FIO2 (BEAKER) (test code = 1819) 30.0 % POCT-GLUCOSE [id number] 17:50:00 Test Item Value Reference Range Interpretation Comments POC-GLUCOSE METER 198 mg/dL 70-[address] [facility] 6720 (BEAKER) (test code = [place] 1538) [address] POCT-GLUCOSE [id number] 13:56:00 Test Item Value Reference Range Interpretation Comments POC-GLUCOSE METER 204 mg/dL 70-[address] [facility] 6720 (AKER) (test code = [place] 1538) [address] ANAEROBIC [id number] 11:01:00 Test Item Value Reference Range Interpretation Comments CULTURE (BEAKER) (test No anaerobes isolated code = 1095) ANAEROBIC [id number] 11:01:00 Test Item Value Reference Range Interpretation Comments CULTURE (BEAKER) (test No anaerobes isolated code = 1095) ANAEROBIC [id number] 11:01:00 Test Item Value Reference Range Interpretation Comments CULTURE (BEAKER) (test No anaerobes isolated code = 1095) ANAEROBIC [id number] 11:00:00 Test Item Value Reference Range Interpretation Comments CULTURE (BEAKER) (test No anaerobes isolated code = 1095) RAD, CHEST, 1 VIEW, NON [id number] 09:47:00Reason for exam:->s/p decorticationShould this be performed [...] perihilar opacity overall similar. Signed: Cata Montano [facility] Verified Date/Time: 07/05/2017 09:47:43 Reading Location: [facility] Radiology Reading Room POCT-GLUCOSE [id number] 09:41:00 Test Item Value Reference Range Interpretation Comments POC-GLUCOSE METER 338 mg/dL 70-110 H Notified Gilberto Ingram MD/TESTED (BEBONNIE) (test code = AT [facility] 6720 [place] 1538) [facility] 7703 0 CBC W/PLT COUNT & AUTO [id number] 06:31:00 Test Item Value Reference Range Interpretation Comments WHITE BLOOD CELL COUNT (BEAKER) 17.6 K/ L 3.5-10.5 H (test code = 775) RED BLOOD CELL COUNT (BEAKER) 3.16 M/ L 4.63-6.08 L (test code = 761) HEMOGLOBIN (BEAKER) (test code = 8.4 GM/DL 13.7-17.5 L 410) HEMATOCRIT (BEAKER) (test code = 28.7 % 40.1-51.0 L 411) MEAN CORPUSCULAR VOLUME (BEAKER) 90.8 fL 79.0-92.2 (test code = 753) MEAN CORPUSCULAR HEMOGLOBIN 26.6 pg 25.7-32.2 (BEAKER) (test code = 751) MEAN CORPUSCULAR HEMOGLOBIN CONC 29.3 GM/DL 32.3-36.5 L (BEAKER) (test code = 752) RED CELL DISTRIBUTION WIDTH 17.2 % 11.6-14.4 H (BEAKER) (test code = 412) PLATELET COUNT (BEAKER) (test 272 K/CU MM 150-450 code = 756) MEAN PLATELET VOLUME (BEAKER) 11.4 fL 9.4-12.4 (test code = 754) NUCLEATED RED BLOOD CELLS 0 /100 WBC 0-0 (BEAKER) (test code = 413) NEUTROPHILS RELATIVE PERCENT 84 % (BEAKER) (test code = 429) LYMPHOCYTES RELATIVE PERCENT 4 % (BEAKER) (test code = 430) MONOCYTES RELATIVE PERCENT 9 % (BEAKER) (test code = 431) EOSINOPHILS RELATIVE PERCENT 2 % (BEAKER) (test code = 432) BASOPHILS RELATIVE PERCENT 0 % (BEAKER) (test code = 437) NEUTROPHILS ABSOLUTE COUNT 14.81 K/ L 1.78-5.38 H (BEAKER) (test code = 670) LYMPHOCYTES ABSOLUTE COUNT 0.62 K/ L 1.32-3.57 L (BEAKER) (test code = 414) MONOCYTES ABSOLUTE COUNT (BEAKER) 1.57 K/ L 0.30-0.82 H (test code = 415) EOSINOPHILS ABSOLUTE COUNT 0.31 K/ L 0.04-0.54 (BEAKER) (test code = 416) BASOPHILS ABSOLUTE COUNT (BEAKER) 0.07 K/ L 0.01-0.08 (test code = 417) IMMATURE GRANULOCYTES-RELATIVE 1 % 0-1 PERCENT (BEAKER) (test code = 2801) [id number] 06:04:00 Test Item Value Reference Range Interpretation Comments PROTIME (BEAKER) (test code = 15.6 seconds 11.7-14.7 H 759) INR (BEAKER) (test code = 370) 1.2 <=5.9 PARTIAL THROMBOPLASTIN TIME 55.5 seconds 22.5-36.0 H (BEAKER) (test code = 760) RECOMMENDED COUMADIN/WARFARIN INR THERAPY RANGESSTANDARD DOSE: 2.0 - 3.0 Includes: PROPHYLAXIS forvenous thrombosis, systemic embolization; TREATMENT for venous thrombosis and/or pulmonary embolus.HIGH RISK: Target INR is 2.5-3.5 for patients with mechanical heart valves.BASIC METABOLIC [id number] 05:44:00 Test Item Value Reference Range Interpretation Comments SODIUM (BEAKER) 140 meq/L 136-145 (test code = 381) POTASSIUM (BEAKER) 4.6 meq/L 3.5-5.1 (test code = 379) CHLORIDE (BEAKER) 101 meq/L 98-107 (test code = 382) CO2 (BEAKER) (test 24 meq/L 22-29 code = 355) BLOOD UREA NITROGEN 46 mg/dL 7-21 H (BEAKER) (test code = 354) CREATININE (BEAKER) 6.35 mg/dL 0.57-1.25 H (test code = 358) GLUCOSE RANDOM 251 mg/dL 70-105 H (BEAKER) (test code = 652) CALCIUM (BEAKER) 8.2 mg/dL 8.4-10.2 L (test code = 697) EGFR (BEAKER) (test 10 mL/min/1.73 ESTIMA LUIS MANUEL GFR IS code = 1092) sq m NOT ACCURATE CREATININE CLEARANCE IN PREDICTING GLOMERULAR FILTRATION RATE . ESTIMATED GFR I S NOT APPLICABLE FOR DIALYSIS PATIEN TS. [id number] 05:22:00 Test Item Value Reference Range Interpretation Comments PARTIAL THROMBOPLASTIN TIME > seconds 22.5-36.0 HH (BEAKER) (test code = 760) [id number] 05:12:00 Test Item Value Reference Range Interpretation Comments PHOSPHORUS (BEAKER) (test code = 6.1 mg/dL 2.3-4.7 H 604) [id number] 05:12:00 Test Item Value Reference Range Interpretation Comments MAGNESIUM (BEAKER) (test code = 2.3 mg/dL 1.6-2.6 627) PROTHROMBIN [id number] 05:00:00 Test Item Value Reference Range Interpretation Comments PROTIME (BEAKER) (test code = 17.6 seconds 11.7-14.7 H 759) INR (BEAKER) (test code = 370) 1.5 <=5.9 RECOMMENDED COUMADIN/WARFARIN INR THERAPY RANGESSTANDARD DOSE: 2.0 - 3.0 Includes: PROPHYLAXIS forvenous thrombosis, systemic embolization; TREATMENT for venous thrombosis and/or pulmonary embolus.HIGH RISK: Target INR is 2.5-3.5 for patients with mechanical heart valves.BLOOD GAS, [id number] 04:49:00 Test Item Value Reference Range Interpretation Comments PH ARTERIAL (BEAKER) (test code = 7.33 7.35-7.45 L 383) PCO2 ARTERIAL (BEAKER) (test code 51 mmHg 35-45 H = 384) PO2 ARTERIAL (BEAKER) (test code 158 mmHg 80-90 H = 385) O2 SATURATION ARTERIAL (BEAKER) 98.9 % 96.0-97.0 H (test code = 386) HCO3 ARTERIAL (BEAKER) (test code 26 mmol/L 21-29 = 388) BASE EXCESS ARTERIAL (BEAKER) -0.1 mmol/L -2.0-3.0 (test code = 387) PATIENT TEMPERATURE (BEAKER) 37.0 C (test code = 1818) FIO2 (BEAKER) (test code = 1819) 28.0 % POCT-GLUCOSE [id number] 21:51:00 Test Item Value Reference Range Interpretation Comments POC-GLUCOSE METER 292 mg/dL 70-[address] [facility] 6720 (BEAKER) (test code = [place] 1538) [id number] POCT-GLUCOSE [id number] 18:49:00 Test Item Value Reference Range Interpretation Comments POC-GLUCOSE METER 248 mg/dL 70-[address] [facility] 6720 (BEAKER) (test code = [place] 1538) [address] RAD, CHEST, 1 VIEW, NON [id number] 14:39:00Reason for exam:->eval pneumo, suction to -10cmShould this be performed at the bedside?->YesFINAL REPORT Chest one view compared to July 04, 2017 Discussion: There are bilateral chest tubes. A right-sided pneumothorax is small, diminished in volume since the previous study. A left-sided pneumothorax is small and similar in appearance to the prior study. Confluent airspace opacity seen in the retrocardiac left low lung. Signed: Cata Montano Verified Date/Time: 07/04/2017 14:39:09 Reading Location: [address] Consult Reading Room POCT-GLUCOSE [id number] 13:28:00 Test Item Value Reference Range Interpretation Comments POC-GLUCOSE METER 278 mg/dL 70-110 H TESTED AT [place] [address] [facility] (test code = [facility] [facility] 1538) [address] BLOOD GAS, [id number] 09:41:00 Test Item Value Reference Range Interpretation Comments PH ARTERIAL (BEAKER) (test code = 7.30 7.35-7.45 L 383) PCO2 ARTERIAL (BEAKER) (test code 56 mmHg 35-45 H = 384) PO2 ARTERIAL (BEAKER) (test code 110 mmHg 80-90 H = 385) O2 SATURATION ARTERIAL (BEAKER) 97.4 % 96.0-97.0 H (test code = 386) HCO3 ARTERIAL (BEAKER) (test code 27 mmol/L 21-29 = 388) BASE EXCESS ARTERIAL (BEAKER) -0.3 mmol/L -2.0-3.0 (test code = 387) PATIENT TEMPERATURE (BEAKER) 37.0 C (test code = 1818) FIO2 (BEAKER) (test code = 1819) 28.0 % POCT-GLUCOSE [id number] 09:16:00 Test Item Value Reference Range Interpretation Comments POC-GLUCOSE METER 161 mg/dL 70-110 H TESTED AT [place] [address] (BEAKER) (test code = [facility] [employer] [place] 1538) [address] RAD, CHEST, 1 VIEW, NON [id number] 09:13:00Reason for exam:->s/p decorticationShould this be performed at the bedside?->YesFINAL REPORT Chest one view compared to July 03 Discussion: There are persistent bilateral pneumothoraces, small to moderate on both sides with bilateral chest tubes in place. Theright-sided pneumothorax may have minimally increased in volume. Confluent left retrocardiac lung opacity is similar. Mild pulmonary congestion unchanged. Signed: Cata oMntano Verified Date/Salvador e: 07/04/2017 09:13:48 Reading Location: [facility] Radiology Reading Room BLOOD GAS, [id number] 04:33:00 Test Item Value Reference Range Interpretation Comments PH ARTERIAL (BEAKER) (test code = 7.30 7.35-7.45 L 383) PCO2 ARTERIAL (BEAKER) (test code 57 mmHg 35-45 H = 384) PO2 ARTERIAL (BEAKER) (test code = 97 mmHg 80-90 H 385) O2 SATURATION ARTERIAL (BEAKER) 96.6 % 96.0-97.0 (test code = 386) HCO3 ARTERIAL (BEAKER) (test code 27 mmol/L 21-29 = 388) BASE EXCESS ARTERIAL (BEAKER) 0.3 mmol/L -2.0-3.0 (test code = 387) PATIENT TEMPERATURE (BEAKER) (test 37.0 C code = 1818) FIO2 (BEAKER) (test code = 1819) 28.0 % BASIC METABOLIC [id number] 04:18:00 Test Item Value Reference Range Interpretation Comments SODIUM (BEAKER) 142 meq/L 136-145 (test code = 381) POTASSIUM (BEAKER) 4.9 meq/L 3.5-5.1 (test code = 379) CHLORIDE (BEAKER) 101 meq/L 98-107 (test code = 382) CO2 (BEAKER) (test 25 meq/L 22-29 code = 355) BLOOD UREA NITROGEN 24 mg/dL 7-21 H (BEAKER) (test code = 354) CREATININE (BEAKER) 4.57 mg/dL 0.57-1.25 H (test code = 358) GLUCOSE RANDOM 152 mg/dL 70-105 H (BEAKER) (test code = 652) CALCIUM (BEAKER) 8.9 mg/dL 8.4-10.2 (test code = 697) EGFR (BEAKER) (test 14 mL/min/1.73 ESTIMA LUIS MANUEL GFR IS code = 1092) sq m NOT ACCURATE CREATININE CLEARANCE IN PREDICTING GLOMERULAR FILTRATION RATE . ESTIMATED GFR I S NOT APPLICABLE FOR DIALYSIS PATIEN TS. [id number] 04:15:00 Test Item Value Reference Range Interpretation Comments PHOSPHORUS (BEAKER) (test code = 6.5 mg/dL 2.3-4.7 H 604) [id number] 04:15:00 Test Item Value Reference Range Interpretation Comments MAGNESIUM (BEAKER) (test code = 2.2 mg/dL 1.6-2.6 627) CBC W/PLT COUNT & AUTO [id number] 04:10:00 Test Item Value Reference Range Interpretation Comments WHITE BLOOD CELL COUNT (BEAKER) 18.0 K/ L 3.5-10.5 H (test code = 775) RED BLOOD CELL COUNT (BEAKER) 3.44 M/ L 4.63-6.08 L (test code = 761) HEMOGLOBIN (BEAKER) (test code = 9.2 GM/DL 13.7-17.5 L 410) HEMATOCRIT (BEAKER) (test code = 31.5 % 40.1-51.0 L 411) MEAN CORPUSCULAR VOLUME (BEAKER) 91.6 fL 79.0-92.2 (test code = 753) MEAN CORPUSCULAR HEMOGLOBIN 26.7 pg 25.7-32.2 (BEAKER) (test code = 751) MEAN CORPUSCULAR HEMOGLOBIN CONC 29.2 GM/DL 32.3-36.5 L (BEAKER) (test code = 752) RED CELL DISTRIBUTION WIDTH 17.5 % 11.6-14.4 H (BEAKER) (test code = 412) PLATELET COUNT (BEAKER) (test 261 K/CU MM 150-450 code = 756) MEAN PLATELET VOLUME (BEAKER) 11.8 fL 9.4-12.4 (test code = 754) NUCLEATED RED BLOOD CELLS 0 /100 WBC 0-0 (BEAKER) (test code = 413) NEUTROPHILS RELATIVE PERCENT 88 % (BEAKER) (test code = 429) LYMPHOCYTES RELATIVE PERCENT 4 % (BEAKER) (test code = 430) MONOCYTES RELATIVE PERCENT 8 % (BEAKER) (test code = 431) EOSINOPHILS RELATIVE PERCENT 0 % (BEAKER) (test code = 432) BASOPHILS RELATIVE PERCENT 0 % (BEAKER) (test code = 437) NEUTROPHILS ABSOLUTE COUNT 15.84 K/ L 1.78-5.38 H (BEAKER) (test code = 670) LYMPHOCYTES ABSOLUTE COUNT 0.63 K/ L 1.32-3.57 L (BEAKER) (test code = 414) MONOCYTES ABSOLUTE COUNT (BEAKER) 1.36 K/ L 0.30-0.82 H (test code = 415) EOSINOPHILS ABSOLUTE COUNT 0.05 K/ L 0.04-0.54 (BEAKER) (test code = 416) BASOPHILS ABSOLUTE COUNT (BEAKER) 0.05 K/ L 0.01-0.08 (test code = 417) IMMATURE GRANULOCYTES-RELATIVE 1 % 0-1 PERCENT (BEAKER) (test code = 2801) [id number] 04:10:00 Test Item Value Reference Range Interpretation Comments PARTIAL THROMBOPLASTIN TIME 54.7 seconds 22.5-36.0 H (BEAKER) (test code = 760) PROTHROMBIN [id number] 04:08:00 Test Item Value Reference Range Interpretation Comments PROTIME (BEAKER) (test code = 17.5 seconds 11.7-14.7 H 759) INR (BEAKER) (test code = 370) 1.4 <=5.9 RECOMMENDED COUMADIN/WARFARIN INR THERAPY RANGESSTANDARD DOSE: 2.0 - 3.0 Includes: PROPHYLAXIS forvenous thrombosis, systemic embolization; TREATMENT for venous thrombosis and/or pulmonary embolus.HIGH RISK: Target INR is 2.5-3.5 for patients with mechanical heart valves.POCT-GLUCOSE [id number] 22:23:00 Test Item Value Reference Range Interpretation Comments POC-GLUCOSE METER 125 mg/dL 70-[address] [facility] 67 ([facility]) (test code = [facility] 1538) [address] POCT-GLUCOSE [id number] 18:19:00 Test Item Value Reference Range Interpretation Comments POC-GLUCOSE METER 95 mg/dL 70-[address] [facility] 6720 ([facility]) (test code = [facility] [address] 1538) RAD, CHEST, 1 VIEW, NON [id number] 17:14:00Reason for exam:->CT to water seal, extubationShould [...] No pulmonary edema. No fracture. Signed: Liz Ramirezepvictoria Verified Date/Time: 07/03/2017 17:14:23 Reading Location: [facility] Radiology Reading Room BLOOD GAS, [id number] 14:24:00 Test Item Value Reference Range Interpretation Comments PH ARTERIAL (BEAKER) (test code = 7.39 7.35-7.45 383) PCO2 ARTERIAL (BEAKER) (test code 49 mmHg 35-45 H = 384) PO2 ARTERIAL (BEAKER) (test code = 191 mmHg 80-90 H 385) O2 SATURATION ARTERIAL (BEAKER) 99.3 % 96.0-97.0 H (test code = 386) HCO3 ARTERIAL (BEAKER) (test code 29 mmol/L 21-29 = 388) BASE EXCESS ARTERIAL (BEAKER) 3.6 mmol/L -2.0-3.0 H (test code = 387) PATIENT TEMPERATURE (BEAKER) (test 36.8 C code = 1818) FIO2 (BEAKER) (test code = 1819) 40.0 % ANAEROBIC [id number] 14:03:00 Test Item Value Reference Range Interpretation Comments CULTURE (BEAKER) (test No anaerobes isolated code = 1095) SURGICALLY OBTAINED CULTURE + GRAM [id number] 13:40:00 Test Item Value Reference Interpretation Comments Range CULTURE (BEAKER) COAGULASE NEGATIVE A 1+ Co agulase (test code = 1095) STAPHYLOCOCCUS negativ e Staphylococcus Clindamycin (test S code = 10) Erythromycin (test R code = 4) Linezolid (test code S = 40) Nitrofurantoin (test S code = 23) Oxacillin (test code R = 14) Rifampin (test code = S 43) Tetracycline (test S code = 2) Trimethoprim + S Sulfamethoxazole (test code = 47) Vancomycin (test code S = 13) GRAM STAIN RESULT <1+ WBCs (BEAKER) (test code = 1123) GRAM STAIN RESULT No organisms seen (BEAKER) (test code = 700258) POCT-GLUCOSE [id number] 13:22:00 Test Item Value Reference Range Interpretation Comments POC-GLUCOSE METER 103 mg/dL 70-110 TESTED AT [place] [address] ([facility]) (test code = MARY JO Macias [place] [address]858) [address] POCT-GLUCOSE [id number] 12:44:00 Test Item Value Reference Range Interpretation Comments POC-GLUCOSE METER 66 mg/dL 70-110 L Notified R Juan Jose BARROW/TESTED AT ([facility]) (test code = [place] [address]) [facility] 7[address] 0 BRONCHIAL CULTURE + GRAM [id number] 11:47:00 Test Item Value Reference Range Interpretation Comments CULTURE ([facility]) 1+ Normal respiratory (test code = 1095) morelia present GRAM STAIN RESULT 1+ WBCs ([facility]) (test code = 1123) GRAM STAIN RESULT No organisms seen ([facility]) (test code = 88856) RAD, CHEST, 1 VIEW, NON [id number] 11:17:00Reason for exam:->s/p decorticationShould this be performed at the bedside?->YesFINAL REPORT Chest one view compared to July 02 Discussion: Bilateral chest tubes in place. There persistent small pneumothoraces left more than right at the apices, unchanged. Ill-defined interstitial opacities left lung are stable. Support tubes in place. IMPRESSIONS: No significant change Signed: Cata Montano Verified Date/Time: 07/03/2017 11:17:09 Reading Location: [facility] Radiology Reading Room POCT-GLUCOSE [id number] 08:54:00 Test Item Value Reference Range Interpretation Comments POC-GLUCOSE METER 194 mg/dL 70-[address] [facility] 6720 (BEAKER) (test code = [place] 1538) [address] SURGICALLY OBTAINED CULTURE + GRAM [id number] 08:42:00 Test Item Value Reference Range Interpretation Comments CULTURE (BEAKER) (test code No growth = 1095) GRAM STAIN RESULT (BEAKER) <1+ WBCs (test code = 1123) GRAM STAIN RESULT (BEAKER) No organisms seen (test code = 87845) SURGICALLY OBTAINED CULTURE + GRAM [id number] 08:41:00 Test Item Value Reference Range Interpretation Comments CULTURE (BEAKER) (test code No growth = 1095) GRAM STAIN RESULT (BEAKER) <1+ WBCs (test code = 1123) GRAM STAIN RESULT (BEAKER) No organisms seen (test code = 27196) SURGICALLY OBTAINED CULTURE + GRAM [id number] 08:41:00 Test Item Value Reference Range Interpretation Comments CULTURE (BEAKER) (test code No growth = 1095) GRAM STAIN RESULT (BEAKER) <1+ WBCs (test code = 1123) GRAM STAIN RESULT (BEAKER) No organisms seen (test code = 04324) SURGICALLY OBTAINED CULTURE + GRAM [id number] 08:40:00 Test Item Value Reference Range Interpretation Comments CULTURE (BEAKER) (test code No growth = 1095) GRAM STAIN RESULT (BEAKER) <1+ WBCs (test code = 1123) GRAM STAIN RESULT (BEAKER) No organisms seen (test code = 65486) SURGICALLY OBTAINED CULTURE + GRAM [id number] 08:40:00 Test Item Value Reference Range Interpretation Comments CULTURE (BEAKER) (test code No growth = 1095) GRAM STAIN RESULT (BEAKER) <1+ WBCs (test code = 1123) GRAM STAIN RESULT (BEAKER) No organisms seen (test code = 18552) SURGICALLY OBTAINED CULTURE + GRAM [id number] 08:40:00 Test Item Value Reference Range Interpretation Comments CULTURE (BEAKER) (test code No growth = 1095) GRAM STAIN RESULT (BEAKER) <1+ WBCs (test code = 1123) GRAM STAIN RESULT (BEAKER) No organisms seen (test code = 64602) SURGICALLY OBTAINED CULTURE + GRAM [id number] 08:39:00 Test Item Value Reference Range Interpretation Comments CULTURE (BEAKER) (test code No growth = 1095) GRAM STAIN RESULT (BEAKER) <1+ WBCs (test code = 1123) GRAM STAIN RESULT (BEAKER) No organisms seen (test code = 23725) VANCOMYCIN LEVEL, [id number] 04:12:00 Test Item Value Reference Range Interpretation Comments VANCOMYCIN RANDOM (BEAKER) (test 12.7 ug/mL code = 523) Reference Range: No NormalsBLOOD GAS, [id number] 04:10:00 Test Item Value Reference Range Interpretation Comments PH ARTERIAL (BEAKER) (test code = 7.36 7.35-7.45 383) PCO2 ARTERIAL (BEAKER) (test code 42 mmHg 35-45 = 384) PO2 ARTERIAL (BEAKER) (test code 199 mmHg 80-90 H = 385) O2 SATURATION ARTERIAL (BEAKER) 99.3 % 96.0-97.0 H (test code = 386) HCO3 ARTERIAL (BEAKER) (test code 23 mmol/L 21-29 = 388) BASE EXCESS ARTERIAL (BEAKER) -2.5 mmol/L -2.0-3.0 L (test code = 387) PATIENT TEMPERATURE (BEAKER) 37.0 C (test code = 1818) FIO2 (BEAKER) (test code = 1819) 40.0 % BASIC METABOLIC [id number] 04:05:00 Test Item Value Reference Range Interpretation Comments SODIUM (BEAKER) 142 meq/L 136-145 (test code = 381) POTASSIUM (BEAKER) 4.4 meq/L 3.5-5.1 (test code = 379) CHLORIDE (BEAKER) 101 meq/L 98-107 (test code = 382) CO2 (BEAKER) (test 19 meq/L 22-29 L code = 355) BLOOD UREA NITROGEN 43 mg/dL 7-21 H (BEAKER) (test code = 354) CREATININE (BEAKER) 7.14 mg/dL 0.57-1.25 H (test code = 358) GLUCOSE RANDOM 146 mg/dL 70-105 H (BEAKER) (test code = 652) CALCIUM (BEAKER) 9.2 mg/dL 8.4-10.2 (test code = 697) EGFR (BEAKER) (test 9 mL/min/1.73 ESTIMAT ED GFR IS code = 1092) sq m NOT ACCURATE CREATININE CLEARANCE IN PREDICTING GLOMERULAR FILTRATION RATE . ESTIMATED GFR I S NOT APPLICABLE FOR DIALYSIS PATIEN TS. [id number] 03:51:00 Test Item Value Reference Range Interpretation Comments PHOSPHORUS (BEAKER) (test code = 7.4 mg/dL 2.3-4.7 H 604) [id number] 03:51:00 Test Item Value Reference Range Interpretation Comments MAGNESIUM (BEAKER) (test code = 2.5 mg/dL 1.6-2.6 627) [id number] 03:46:00 Test Item Value Reference Range Interpretation Comments PARTIAL THROMBOPLASTIN TIME 49.4 seconds 22.5-36.0 H (BEAKER) (test code = 760) CBC W/PLT COUNT & AUTO [id number] 03:46:00 Test Item Value Reference Range Interpretation Comments WHITE BLOOD CELL COUNT (BEAKER) 14.4 K/ L 3.5-10.5 H (test code = 775) RED BLOOD CELL COUNT (BEAKER) 3.21 M/ L 4.63-6.08 L (test code = 761) HEMOGLOBIN (BEAKER) (test code = 8.6 GM/DL 13.7-17.5 L 410) HEMATOCRIT (BEAKER) (test code = 28.6 % 40.1-51.0 L 411) MEAN CORPUSCULAR VOLUME (BEAKER) 89.1 fL 79.0-92.2 (test code = 753) MEAN CORPUSCULAR HEMOGLOBIN 26.8 pg 25.7-32.2 (BEAKER) (test code = 751) MEAN CORPUSCULAR HEMOGLOBIN CONC 30.1 GM/DL 32.3-36.5 L (BEAKER) (test code = 752) RED CELL DISTRIBUTION WIDTH 17.2 % 11.6-14.4 H (BEAKER) (test code = 412) PLATELET COUNT (BEAKER) (test 243 K/CU MM 150-450 code = 756) MEAN PLATELET VOLUME (BEAKER) 12.3 fL 9.4-12.4 (test code = 754) NUCLEATED RED BLOOD CELLS 0 /100 WBC 0-0 (BEAKER) (test code = 413) NEUTROPHILS RELATIVE PERCENT 80 % (BEAKER) (test code = 429) LYMPHOCYTES RELATIVE PERCENT 7 % (BEAKER) (test code = 430) MONOCYTES RELATIVE PERCENT 7 % (BEAKER) (test code = 431) EOSINOPHILS RELATIVE PERCENT 5 % (BEAKER) (test code = 432) BASOPHILS RELATIVE PERCENT 0 % (BEAKER) (test code = 437) NEUTROPHILS ABSOLUTE COUNT 11.50 K/ L 1.78-5.38 H (BEAKER) (test code = 670) LYMPHOCYTES ABSOLUTE COUNT 1.03 K/ L 1.32-3.57 L (BEAKER) (test code = 414) MONOCYTES ABSOLUTE COUNT (BEAKER) 0.96 K/ L 0.30-0.82 H (test code = 415) EOSINOPHILS ABSOLUTE COUNT 0.71 K/ L 0.04-0.54 H (BEAKER) (test code = 416) BASOPHILS ABSOLUTE COUNT (BEAKER) 0.06 K/ L 0.01-0.08 (test code = 417) IMMATURE GRANULOCYTES-RELATIVE 1 % 0-1 PERCENT (BEAKER) (test code = 2801) PROTHROMBIN [id number] 03:45:00 Test Item Value Reference Range Interpretation Comments PROTIME (BEAKER) (test code = 16.2 seconds 11.7-14.7 H 759) INR (BEAKER) (test code = 370) 1.3 <=5.9 RECOMMENDED COUMADIN/WARFARIN INR THERAPY RANGESSTANDARD DOSE: 2.0 - 3.0 Includes: PROPHYLAXIS forvenous thrombosis, systemic embolization; TREATMENT for venous thrombosis and/or pulmonary embolus.HIGH RISK: Target INR is 2.5-3.5 for patients with mechanical heart valves.POCT-GLUCOSE [id number] 23:23:00 Test Item Value Reference Range Interpretation Comments POC-GLUCOSE METER 123 mg/dL 70-[address] [facility] 6720 [facility] (test code = [facility]ARY JO [facility]ias [place] 1538) [id number] POCT-GLUCOSE [id number] 17:45:00 Test Item Value Reference Range Interpretation Comments POC-GLUCOSE METER 182 mg/dL 70-[address] [facility] 6720 ([facility] (test code = [facility] [place] 1538) [address] POCT-GLUCOSE [id number] 12:28:00 Test Item Value Reference Range Interpretation Comments POC-GLUCOSE METER 159 mg/dL 70-[address] [facility] 6720 (BEAKER) (test code = [facility] [place] 1538) [address] POCT-GLUCOSE [id number] 09:44:00 Test Item Value Reference Range Interpretation Comments POC-GLUCOSE METER 209 mg/dL 70-[address] [facility] 6720 (BEAKER) (test code = [facility] [place] 1538) [address] BASIC METABOLIC [id number] 04:58:00 Test Item Value Reference Range Interpretation Comments SODIUM (BEAKER) 140 meq/L 136-145 (test code = 381) POTASSIUM (BEAKER) 3.6 meq/L 3.5-5.1 (test code = 379) CHLORIDE (BEAKER) 100 meq/L 98-107 (test code = 382) CO2 (BEAKER) (test 20 meq/L 22-29 L code = 355) BLOOD UREA NITROGEN 27 mg/dL 7-21 H (BEAKER) (test code = 354) CREATININE (BEAKER) 5.17 mg/dL 0.57-1.25 H (test code = 358) GLUCOSE RANDOM 160 mg/dL 70-105 H (BEAKER) (test code = 652) CALCIUM (BEAKER) 9.0 mg/dL 8.4-10.2 (test code = 697) EGFR (BEAKER) (test 12 mL/min/1.73 ESTIMA LUIS MANUEL GFR IS code = 1092) sq m NOT ACCURATE CREATININE CLEARANCE IN PREDICTING GLOMERULAR FILTRATION RATE . ESTIMATED GFR I S NOT APPLICABLE FOR DIALYSIS PATIEN TS. [id number] 04:57:00 Test Item Value Reference Range Interpretation Comments PHOSPHORUS (BEAKER) (test code = 4.7 mg/dL 2.3-4.7 604) [id number] 04:57:00 Test Item Value Reference Range Interpretation Comments MAGNESIUM (BEAKER) (test code = 2.3 mg/dL 1.6-2.6 627) RAD, CHEST, 1 VIEW, NON [id number] 04:40:00Reason for exam:->s/p thoracic surgeryShould this be performed at the bedside?->YesFINAL REPORT RAD, CHEST, 1 VIEW, NON DEPT INDICATION: s/p thoracic surgery COM PARISON: Prior day's exam TECHNIQUE: Portable frontal view of the chest. IMPRESSION: Lines and tubes stable.Cardiomediastinal silhouette stable.Improved but persistent bilateral pneumothoraces, trace on the right and small on the left.Stable interstitial opacities in the left lung.No acute osseous abn ormality. Signed: Primo Koehler MDReport Verified Date/Time: 07/02/2017 04:40:28 Reading Location: [facility] C013Y CT Body Reading Room [id number] 04:23:00 Test Item Value Reference Range Interpretation Comments PARTIAL THROMBOPLASTIN TIME 47.6 seconds 22.5-36.0 H (BEAKER) (test code = 760) PROTHROMBIN [id number] 04:22:00 Test Item Value Reference Range Interpretation Comments PROTIME (BEAKER) (test code = 15.7 seconds 11.7-14.7 H 759) INR (BEAKER) (test code = 370) 1.3 <=5.9 RECOMMENDED COUMADIN/WARFARIN INR THERAPY RANGESSTANDARD DOSE: 2.0 - 3.0 Includes: PROPHYLAXIS forvenous thrombosis, systemic embolization; TREATMENT for venous thrombosis and/or pulmonary embolus.HIGH RISK: Target INR is 2.5-3.5 for patients with mechanical heart valves.CBC W/PLT COUNT & AUTO DIFFERENTIAL 2017-07-02 04:20:00 Test Item Value Reference Range Interpretation Comments WHITE BLOOD CELL COUNT (BEAKER) 12.3 K/ L 3.5-10.5 H (test code = 775) RED BLOOD CELL COUNT (BEAKER) 3.28 M/ L 4.63-6.08 L (test code = 761) HEMOGLOBIN (BEAKER) (test code = 8.7 GM/DL 13.7-17.5 L 410) HEMATOCRIT (BEAKER) (test code = 28.1 % 40.1-51.0 L 411) MEAN CORPUSCULAR VOLUME (BEAKER) 85.7 fL 79.0-92.2 (test code = 753) MEAN CORPUSCULAR HEMOGLOBIN 26.5 pg 25.7-32.2 (BEAKER) (test code = 751) MEAN CORPUSCULAR HEMOGLOBIN CONC 31.0 GM/DL 32.3-36.5 L (BEAKER) (test code = 752) RED CELL DISTRIBUTION WIDTH 16.5 % 11.6-14.4 H (BEAKER) (test code = 412) PLATELET COUNT (BEAKER) (test 243 K/CU MM 150-450 code = 756) MEAN PLATELET VOLUME (BEAKER) 13.0 fL 9.4-12.4 H (test code = 754) NUCLEATED RED BLOOD CELLS 0 /100 WBC 0-0 (BEAKER) (test code = 413) NEUTROPHILS RELATIVE PERCENT 76 % (BEAKER) (test code = 429) LYMPHOCYTES RELATIVE PERCENT 11 % (BEAKER) (test code = 430) MONOCYTES RELATIVE PERCENT 7 % (BEAKER) (test code = 431) EOSINOPHILS RELATIVE PERCENT 5 % (BEAKER) (test code = 432) BASOPHILS RELATIVE PERCENT 1 % (BEAKER) (test code = 437) NEUTROPHILS ABSOLUTE COUNT 9.38 K/ L 1.78-5.38 H (BEAKER) (test code = 670) LYMPHOCYTES ABSOLUTE COUNT 1.31 K/ L 1.32-3.57 L (BEAKER) (test code = 414) MONOCYTES ABSOLUTE COUNT (BEAKER) 0.88 K/ L 0.30-0.82 H (test code = 415) EOSINOPHILS ABSOLUTE COUNT 0.59 K/ L 0.04-0.54 H (BEAKER) (test code = 416) BASOPHILS ABSOLUTE COUNT (BEAKER) 0.07 K/ L 0.01-0.08 (test code = 417) IMMATURE GRANULOCYTES-RELATIVE 1 % 0-1 PERCENT (BEAKER) (test code = 2801) BLOOD GAS, [id number] 04:02:00 Test Item Value Reference Range Interpretation Comments PH ARTERIAL (BEAKER) (test code = 7.52 7.35-7.45 H 383) PCO2 ARTERIAL (BEAKER) (test code 28 mmHg 35-45 L = 384) PO2 ARTERIAL (BEAKER) (test code = 232 mmHg 80-90 H 385) O2 SATURATION ARTERIAL (BEAKER) 99.6 % 96.0-97.0 H (test code = 386) HCO3 ARTERIAL (BEAKER) (test code 23 mmol/L 21-29 = 388) BASE EXCESS ARTERIAL (BEAKER) 0.5 mmol/L -2.0-3.0 (test code = 387) PATIENT TEMPERATURE (BEAKER) (test 37.0 C code = 1818) FIO2 (BEAKER) (test code = 1819) 40.0 % POCT-GLUCOSE [id number] 23:22:00 Test Item Value Reference Range Interpretation Comments POC-GLUCOSE METER 139 mg/dL 70-[address] [facility] 6720 (BEAKER) (test code = WENDYCA Gilberto [facility] 1538) [address] POCT-GLUCOSE [id number] 17:28:00 Test Item Value Reference Range Interpretation Comments POC-GLUCOSE METER 178 mg/dL 70-[address] [facility] 6720 (BEAKER) (test code = [facility] 1538) [address] POCT-GLUCOSE [id number] 12:46:00 Test Item Value Reference Range Interpretation Comments POC-GLUCOSE METER 255 mg/dL 70-[address] [facility] 6720 (BEAKER) (test code = [facility] 1538) [address] BODY FLUID CULTURE + GRAM [id number] 10:59:00 Test Item Value Reference Range Interpretation Comments CULTURE (BEAKER) (test No growth code = 1095) GRAM STAIN RESULT No White blood cells (BEAKER) (test code = seen 1123) GRAM STAIN RESULT No organisms seen (BEAKER) (test code = 78876) POCT-GLUCOSE [id number] 09:09:00 Test Item Value Reference Range Interpretation Comments POC-GLUCOSE METER 213 mg/dL 70-[address] [facility] 6720 (BEAKER) (test code = [facility] 1538) [id number] BASIC METABOLIC [id number] 05:51:00 Test Item Value Reference Range Interpretation Comments SODIUM (BEAKER) 144 meq/L 136-145 (test code = 381) POTASSIUM (BEAKER) 4.0 meq/L 3.5-5.1 (test code = 379) CHLORIDE (BEAKER) 102 meq/L 98-107 (test code = 382) CO2 (BEAKER) (test 17 meq/L 22-29 L code = 355) BLOOD UREA NITROGEN 13 mg/dL 7-21 (BEAKER) (test code = 354) CREATININE (BEAKER) 3.54 mg/dL 0.57-1.25 H (test code = 358) GLUCOSE RANDOM 157 mg/dL 70-105 H (BEAKER) (test code = 652) CALCIUM (BEAKER) 8.7 mg/dL 8.4-10.2 (test code = 697) EGFR (BEAKER) (test 19 mL/min/1.73 ESTIMA LUIS MANUEL GFR IS code = 1092) sq m NOT ACCURATE CREATININE CLEARANCE IN PREDICTING GLOMERULAR FILTRATION RATE . ESTIMATED GFR I S NOT APPLICABLE FOR DIALYSIS PATIEN TS. [id number] 05:50:00 Test Item Value Reference Range Interpretation Comments PHOSPHORUS (BEAKER) (test code = 4.2 mg/dL 2.3-4.7 604) [id number] 05:50:00 Test Item Value Reference Range Interpretation Comments MAGNESIUM (BEAKER) (test code = 2.3 mg/dL 1.6-2.6 627) CBC W/PLT COUNT & AUTO [id number] 05:31:00 Test Item Value Reference Range Interpretation Comments WHITE BLOOD CELL COUNT (BEAKER) 12.5 K/ L 3.5-10.5 H (test code = 775) RED BLOOD CELL COUNT (BEAKER) 3.37 M/ L 4.63-6.08 L (test code = 761) HEMOGLOBIN (BEAKER) (test code = 8.9 GM/DL 13.7-17.5 L 410) HEMATOCRIT (BEAKER) (test code = 29.0 % 40.1-51.0 L 411) MEAN CORPUSCULAR VOLUME (BEAKER) 86.1 fL 79.0-92.2 (test code = 753) MEAN CORPUSCULAR HEMOGLOBIN 26.4 pg 25.7-32.2 (BEAKER) (test code = 751) MEAN CORPUSCULAR HEMOGLOBIN CONC 30.7 GM/DL 32.3-36.5 L (BEAKER) (test code = 752) RED CELL DISTRIBUTION WIDTH 15.8 % 11.6-14.4 H (BEAKER) (test code = 412) PLATELET COUNT (BEAKER) (test 228 K/CU MM 150-450 code = 756) MEAN PLATELET VOLUME (BEAKER) 13.0 fL 9.4-12.4 H (test code = 754) NUCLEATED RED BLOOD CELLS 0 /100 WBC 0-0 (BEAKER) (test code = 413) NEUTROPHILS RELATIVE PERCENT 80 % (BEAKER) (test code = 429) LYMPHOCYTES RELATIVE PERCENT 10 % (BEAKER) (test code = 430) MONOCYTES RELATIVE PERCENT 7 % (BEAKER) (test code = 431) EOSINOPHILS RELATIVE PERCENT 2 % (BEAKER) (test code = 432) BASOPHILS RELATIVE PERCENT 1 % (BEAKER) (test code = 437) NEUTROPHILS ABSOLUTE COUNT 9.94 K/ L 1.78-5.38 H (BEAKER) (test code = 670) LYMPHOCYTES ABSOLUTE COUNT 1.27 K/ L 1.32-3.57 L (BEAKER) (test code = 414) MONOCYTES ABSOLUTE COUNT (BEAKER) 0.87 K/ L 0.30-0.82 H (test code = 415) EOSINOPHILS ABSOLUTE COUNT 0.19 K/ L 0.04-0.54 (BEAKER) (test code = 416) BASOPHILS ABSOLUTE COUNT (BEAKER) 0.07 K/ L 0.01-0.08 (test code = 417) IMMATURE GRANULOCYTES-RELATIVE 1 % 0-1 PERCENT (BEAKER) (test code = 2801) PROTHROMBIN [id number] 05:26:00 Test Item Value Reference Range Interpretation Comments PROTIME (BEAKER) (test code = 15.4 seconds 11.7-14.7 H 759) INR (BEAKER) (test code = 370) 1.2 <=5.9 RECOMMENDED COUMADIN/WARFARIN INR THERAPY RANGESSTANDARD DOSE: 2.0 - 3.0 Includes: PROPHYLAXIS forvenous thrombosis, systemic embolization; TREATMENT for venous thrombosis and/or pulmonary embolus.HIGH RISK: Target INR is 2.5-3.5 for patients with mechanical heart valves.[id number] 05:26:00 Test Item Value Reference Range Interpretation Comments PARTIAL THROMBOPLASTIN TIME 38.6 seconds 22.5-36.0 H (BEAKER) (test code = 760) BLOOD GAS, [id number] 04:31:00 Test Item Value Reference Range Interpretation Comments PH ARTERIAL (BEAKER) (test code = 7.46 7.35-7.45 H 383) PCO2 ARTERIAL (BEAKER) (test code 24 mmHg 35-45 L = 384) PO2 ARTERIAL (BEAKER) (test code 280 mmHg 80-90 H = 385) O2 SATURATION ARTERIAL (BEAKER) 99.7 % 96.0-97.0 H (test code = 386) HCO3 ARTERIAL (BEAKER) (test code 17 mmol/L 21-29 L = 388) BASE EXCESS ARTERIAL (BEAKER) -5.8 mmol/L -2.0-3.0 L (test code = 387) PATIENT TEMPERATURE (BEAKER) 37.0 C (test code = 1818) FIO2 (BEAKER) (test code = 1819) 50.0 % RAD, CHEST, 1 VIEW, NON [id number] 04:31:00Reason for exam:->s/p thoracic surgeryShould this be performed at the bedside?->YesFINAL REPORT RAD, CHEST, 1 VIEW, NON DEPT INDICATION: s/p thoracic surgery COM PARISON: Prior day's exam TECHNIQUE: Portable frontal view of the chest. IMPRESSION: Lines and tubes stable.Stable cardiomegaly.Stable bilateral pneumothoraces, left greater than right.Stable interstitial opacities in the left lung.No acute osseous abnormality. Signed: Primo Koehlereport Verifgordon calvo Date/Time: 07/01/2017 04:31:20 Reading Location: [address] Body Reading Room D GAS, [id number] 20:48:00 Test Item Value Reference Range Interpretation Comments PH ARTERIAL (BEAKER) (test code = 7.52 7.35-7.45 H 383) PCO2 ARTERIAL (BEAKER) (test code 26 mmHg 35-45 L = 384) PO2 ARTERIAL (BEAKER) (test code 267 mmHg 80-90 H = 385) O2 SATURATION ARTERIAL (BEAKER) 99.7 % 96.0-97.0 H (test code = 386) HCO3 ARTERIAL (BEAKER) (test code 21 mmol/L 21-29 = 388) BASE EXCESS ARTERIAL (BEAKER) -1.2 mmol/L -2.0-3.0 (test code = 387) PATIENT TEMPERATURE (BEAKER) 37.0 C (test code = 1818) FIO2 (BEAKER) (test code = 1819) 50.0 % PROTHROMBIN [id number] 15:11:00 Test Item Value Reference Range Interpretation Comments PROTIME (BEAKER) (test code = 15.1 seconds 11.7-14.7 H 759) INR (BEAKER) (test code = 370) 1.2 <=5.9 RECOMMENDED COUMADIN/WARFARIN INR THERAPY RANGESSTANDARD DOSE: 2.0 - 3.0 Includes: PROPHYLAXIS forvenous thrombosis, systemic embolization; TREATMENT for venous thrombosis and/or pulmonary embolus.HIGH RISK: Target INR is 2.5-3.5 for patients with mechanical heart valves.[id number] 15:11:00 Test Item Value Reference Range Interpretation Comments PARTIAL THROMBOPLASTIN TIME 30.9 seconds 22.5-36.0 (BEAKER) (test code = 760) RAD, CHEST, 1 VIEW, NON [id number] 15:11:00Reason for exam:->s/p thoracic surgeryShould this be performed at the bedside?->YesFINAL REPORT COMPARISON: 06/29/2009 TECHNIQUE: Single view of the chest FINDINGS: Patient has presumably undergone recent cardiothoracic surgery. There is mild prominence of interstitial markings. No overt consolidation, edema, or large pleural effusion. There is a tiny right pneumothorax, new from before. There is a small to moderate left pneumothorax. Previous left pleural effusion has decreased. Multiple support lines and tubes are in place. An endotracheal tube projects approximately 6.3 cm above the dmitry. A nasogastric tube projects below the diaphragm. Bilateral chest tubes are noted. Signed: Ariel Quijano MDReport Verified Date/Time: 06/30/2017 15:11:38 Reading Location: [address] Transitional Reading Room CBC W/PLT COUNT & AUTO [id number] 15:01:00 Test Item Value Reference Range Interpretation Comments WHITE BLOOD CELL COUNT (BEAKER) 9.1 K/ L 3.5-10.5 (test code = 775) RED BLOOD CELL COUNT (BEAKER) 3.19 M/ L 4.63-6.08 L (test code = 761) HEMOGLOBIN (BEAKER) (test code = 8.4 GM/DL 13.7-17.5 L 410) HEMATOCRIT (BEAKER) (test code = 27.2 % 40.1-51.0 L 411) MEAN CORPUSCULAR VOLUME (BEAKER) 85.3 fL 79.0-92.2 (test code = 753) MEAN CORPUSCULAR HEMOGLOBIN 26.3 pg 25.7-32.2 (BEAKER) (test code = 751) MEAN CORPUSCULAR HEMOGLOBIN CONC 30.9 GM/DL 32.3-36.5 L (BEAKER) (test code = 752) RED CELL DISTRIBUTION WIDTH 14.7 % 11.6-14.4 H (BEAKER) (test code = 412) PLATELET COUNT (BEAKER) (test 214 K/CU MM 150-450 code = 756) MEAN PLATELET VOLUME (BEAKER) 13.0 fL 9.4-12.4 H (test code = 754) NUCLEATED RED BLOOD CELLS 0 /100 WBC 0-0 (BEAKER) (test code = 413) NEUTROPHILS RELATIVE PERCENT 85 % (BEAKER) (test code = 429) LYMPHOCYTES RELATIVE PERCENT 6 % (BEAKER) (test code = 430) MONOCYTES RELATIVE PERCENT 6 % (BEAKER) (test code = 431) EOSINOPHILS RELATIVE PERCENT 2 % (BEAKER) (test code = 432) BASOPHILS RELATIVE PERCENT 1 % (BEAKER) (test code = 437) NEUTROPHILS ABSOLUTE COUNT 7.68 K/ L 1.78-5.38 H (BEAKER) (test code = 670) LYMPHOCYTES ABSOLUTE COUNT 0.56 K/ L 1.32-3.57 L (BEAKER) (test code = 414) MONOCYTES ABSOLUTE COUNT (BEAKER) 0.52 K/ L 0.30-0.82 (test code = 415) EOSINOPHILS ABSOLUTE COUNT 0.18 K/ L 0.04-0.54 (BEAKER) (test code = 416) BASOPHILS ABSOLUTE COUNT (BEAKER) 0.05 K/ L 0.01-0.08 (test code = 417) IMMATURE GRANULOCYTES-RELATIVE 1 % 0-1 PERCENT (BEAKER) (test code = 2801) BASIC METABOLIC [id number] 14:57:00 Test Item Value Reference Range Interpretation Comments SODIUM (BEAKER) 137 meq/L 136-145 (test code = 381) POTASSIUM (BEAKER) 5.1 meq/L 3.5-5.1 (test code = 379) CHLORIDE (BEAKER) 99 meq/L 98-107 (test code = 382) CO2 (BEAKER) (test 15 meq/L 22-29 L code = 355) BLOOD UREA NITROGEN 36 mg/dL 7-21 H (BEAKER) (test code = 354) CREATININE (BEAKER) 7.10 mg/dL 0.57-1.25 H (test code = 358) GLUCOSE RANDOM 235 mg/dL 70-105 H (BEAKER) (test code = 652) CALCIUM (BEAKER) 8.8 mg/dL 8.4-10.2 (test code = 697) EGFR (BEAKER) (test 9 mL/min/1.73 ESTIMAT ED GFR IS code = 1092) sq m NOT ACCURATE CREATININE CLEARANCE IN PREDICTING GLOMERULAR FILTRATION RATE . ESTIMATED GFR I S NOT APPLICABLE FOR DIALYSIS PATIEN TS. [id number] 14:54:00 Test Item Value Reference Range Interpretation Comments MAGNESIUM (BEAKER) (test code = 2.1 mg/dL 1.6-2.6 627) BLOOD GAS, [id number] 14:28:00 Test Item Value Reference Range Interpretation Comments PH ARTERIAL (BEAKER) (test code = 7.53 7.35-7.45 H 383) PCO2 ARTERIAL (BEAKER) (test code 21 mmHg 35-45 L = 384) PO2 ARTERIAL (BEAKER) (test code 336 mmHg 80-90 H = 385) O2 SATURATION ARTERIAL (BEAKER) 99.8 % 96.0-97.0 H (test code = 386) HCO3 ARTERIAL (BEAKER) (test code 17 mmol/L 21-29 L = 388) BASE EXCESS ARTERIAL (BEAKER) -5.0 mmol/L -2.0-3.0 L (test code = 387) PATIENT TEMPERATURE (BEAKER) 36.1 C (test code = 1818) FIO2 (BEAKER) (test code = 1819) 60.0 % BLOOD GAS, [id number] 10:25:00 Test Item Value Reference Range Interpretation Comments PH ARTERIAL (BEAKER) (test code = 7.50 7.35-7.45 H 383) PCO2 ARTERIAL (BEAKER) (test code 31 mmHg 35-45 L = 384) PO2 ARTERIAL (BEAKER) (test code = 570 mmHg 80-90 H 385) O2 SATURATION ARTERIAL (BEAKER) 99.9 % 96.0-97.0 H (test code = 386) HCO3 ARTERIAL (BEAKER) (test code 24 mmol/L 21-29 = 388) BASE EXCESS ARTERIAL (BEAKER) 0.5 mmol/L -2.0-3.0 (test code = 387) PATIENT TEMPERATURE (BEAKER) (test 34.6 C code = 1818) FIO2 (BEAKER) (test code = 1819) 100.0 % SODIUM NA-STAT [id number] 10:25:00 Test Item Value Reference Range Interpretation Comments SODIUM (BEAKER) (test code = 381) 134 meq/L 135-148 L GLUCOSE-STAT [id number] 10:25:00 Test Item Value Reference Range Interpretation Comments GLUCOSE RANDOM (BEAKER) (test code 193 mg/dL 70-110 H = 652) HGB/HCT (H&H) - STAT [id number] 10:25:00 Test Item Value Reference Range Interpretation Comments HEMOGLOBIN (BEAKER) (test code = 9.8 g/dL 13.0-16.8 L 410) HEMATOCRIT (BEAKER) (test code = 29.0 % 40.0-50.0 L 411) POTASSIUM-STAT [id number] 10:23:00 Test Item Value Reference Range Interpretation Comments POTASSIUM (BEAKER) (test code = 4.5 meq/L 3.6-5.5 379) POCT-GLUCOSE [id number] 07:34:00 Test Item Value Reference Range Interpretation Comments POC-GLUCOSE METER 163 mg/dL 70-[address] [facility] 6720 (BEAKER) (test code = MARY JO Gilberto [place] 1538) [id number] [id number] 05:59:00 Test Item Value Reference Range Interpretation Comments MAGNESIUM (BEAKER) 2.5 mg/dL 1.6-2.6 Specimen slightly (test code = 627) hemolyzed [id number] 05:59:00 Test Item Value Reference Range Interpretation Comments PHOSPHORUS (BEAKER) 4.5 mg/dL 2.3-4.7 Specimen slightly (test code = 604) hemolyzed BASIC METABOLIC [id number] 05:59:00 Test Item Value Reference Range Interpretation Comments SODIUM (BEAKER) 137 meq/L 136-145 (test code = 381) POTASSIUM (BEAKER) 4.9 meq/L 3.5-5.1 Specimen slightly (test code = 379) hemolyzed CHLORIDE (BEAKER) 97 meq/L 98-107 L (test code = 382) CO2 (BEAKER) (test 22 meq/L 22-29 code = 355) BLOOD UREA NITROGEN 33 mg/dL 7-21 H (BEAKER) (test code = 354) CREATININE (BEAKER) 6.63 mg/dL 0.57-1.25 H Specimen slightly (test code = 358) hemolyzed GLUCOSE RANDOM 173 mg/dL 70-105 H (BEAKER) (test code = 652) CALCIUM (BEAKER) 9.3 mg/dL 8.4-10.2 (test code = 697) EGFR (BEAKER) (test 9 mL/min/1.73 ESTIMAT ED GFR IS code = 1092) sq m NOT ACCURATE CREATININE CLEARANCE IN PREDICTING GLOMERULAR FILTRATION RATE . ESTIMATED GFR I S NOT APPLICABLE FOR DIALYSIS PATIEN TS. CBC W/PLT COUNT & AUTO [id number] 05:56:00 Test Item Value Reference Range Interpretation Comments WHITE BLOOD CELL COUNT (BEAKER) 8.2 K/ L 3.5-10.5 (test code = 775) RED BLOOD CELL COUNT (BEAKER) 3.86 M/ L 4.63-6.08 L (test code = 761) HEMOGLOBIN (BEAKER) (test code = 10.3 GM/DL 13.7-17.5 L 410) HEMATOCRIT (BEAKER) (test code = 33.3 % 40.1-51.0 L 411) MEAN CORPUSCULAR VOLUME (BEAKER) 86.3 fL 79.0-92.2 (test code = 753) MEAN CORPUSCULAR HEMOGLOBIN 26.7 pg 25.7-32.2 (BEAKER) (test code = 751) MEAN CORPUSCULAR HEMOGLOBIN CONC 30.9 GM/DL 32.3-36.5 L (BEAKER) (test code = 752) RED CELL DISTRIBUTION WIDTH 14.8 % 11.6-14.4 H (BEAKER) (test code = 412) PLATELET COUNT (BEAKER) (test 251 K/CU MM 150-450 code = 756) MEAN PLATELET VOLUME (BEAKER) 12.8 fL 9.4-12.4 H (test code = 754) NUCLEATED RED BLOOD CELLS 0 /100 WBC 0-0 (BEAKER) (test code = 413) NEUTROPHILS RELATIVE PERCENT 63 % (BEAKER) (test code = 429) LYMPHOCYTES RELATIVE PERCENT 18 % (BEAKER) (test code = 430) MONOCYTES RELATIVE PERCENT 8 % (BEAKER) (test code = 431) EOSINOPHILS RELATIVE PERCENT 9 % (BEAKER) (test code = 432) BASOPHILS RELATIVE PERCENT 1 % (BEAKER) (test code = 437) NEUTROPHILS ABSOLUTE COUNT 5.19 K/ L 1.78-5.38 (BEAKER) (test code = 670) LYMPHOCYTES ABSOLUTE COUNT 1.50 K/ L 1.32-3.57 (BEAKER) (test code = 414) MONOCYTES ABSOLUTE COUNT (BEAKER) 0.65 K/ L 0.30-0.82 (test code = 415) EOSINOPHILS ABSOLUTE COUNT 0.70 K/ L 0.04-0.54 H (BEAKER) (test code = 416) BASOPHILS ABSOLUTE COUNT (BEAKER) 0.11 K/ L 0.01-0.08 H (test code = 417) IMMATURE GRANULOCYTES-RELATIVE 1 % 0-1 PERCENT (BEAKER) (test code = 2801) POCT-GLUCOSE [id number] 21:18:00 Test Item Value Reference Range Interpretation Comments POC-GLUCOSE METER 194 mg/dL 70-[address] [facility] 6720 (BEAKER) (test code = MARY JO Macias [place] 1538) [address] RAD, CHEST, 1 VIEW, NON [id number] 19:48:00Reason for exam:->chest tube removalReason for exam:->chest tube removalFINAL REPORT Chest radiograph, AP Clinical History: Chest tube removal Imp ression: Compared with chest CT and chest radiograph 06/27/2017 The left-sided pleural catheter has been removed in the [...] imaging surveillance recommended. Signed: Ganesh Anderson MDReport Karlosifi ed Date/Time: 06/29/2017 19:48:42 Reading Location: [address] Reading Room POCT-GLUCOSE [id number] 17:25:00 Test Item Value Reference Range Interpretation Comments POC-GLUCOSE METER 166 mg/dL 70-110 H TESTED AT [place] [address] ([facility]) (test code = MARY JO Macias [facility] 1538) [id number] 09:50:00 Test Item Value Reference Range Interpretation Comments PROTIME ([facility]) (test code = 13.1 seconds 11.7-14.7 759) INR ([facility]) (test code = 370) 1.0 <=5.9 PARTIAL THROMBOPLASTIN TIME 29.4 seconds 22.5-36.0 ([facility]) (test code = 760) RECOMMENDED COUMADIN/WARFARIN INR THERAPY RANGESSTANDARD DOSE: 2.0 - 3.0 Includes: PROPHYLAXIS forvenous thrombosis, systemic embolization; TREATMENT for venous thrombosis and/or pulmonary embolus.HIGH RISK: Target INR is 2.5-3.5 for patients with mechanical heart valves.POCT-GLUCOSE [id number] 07:13:00 Test Item Value Reference Range Interpretation Comments POC-GLUCOSE METER 132 mg/dL 70-110 H TESTED AT [place] [address] ([facility]) (test code = MARY JO Macias [facility] 1538) [address] BASIC METABOLIC [id number] 04:59:00 Test Item Value Reference Range Interpretation Comments SODIUM (BEAKER) 139 meq/L 136-145 (test code = 381) POTASSIUM (BEAKER) 4.1 meq/L 3.5-5.1 (test code = 379) CHLORIDE (BEAKER) 100 meq/L 98-107 (test code = 382) CO2 (BEAKER) (test 26 meq/L 22-29 code = 355) BLOOD UREA NITROGEN 17 mg/dL 7-21 (BEAKER) (test code = 354) CREATININE (BEAKER) 4.77 mg/dL 0.57-1.25 H (test code = 358) GLUCOSE RANDOM 114 mg/dL 70-105 H (BEAKER) (test code = 652) CALCIUM (BEAKER) 8.7 mg/dL 8.4-10.2 (test code = 697) EGFR (BEAKER) (test 14 mL/min/1.73 ESTIMA LUIS MANUEL GFR IS code = 1092) sq m NOT ACCURATE CREATININE CLEARANCE IN PREDICTING GLOMERULAR FILTRATION RATE . ESTIMATED GFR I S NOT APPLICABLE FOR DIALYSIS PATIEN TS. [id number] 04:54:00 Test Item Value Reference Range Interpretation Comments PHOSPHORUS (BEAKER) (test code = 3.2 mg/dL 2.3-4.7 604) [id number] 04:54:00 Test Item Value Reference Range Interpretation Comments MAGNESIUM (BEAKER) (test code = 2.0 mg/dL 1.6-2.6 627) CBC W/PLT COUNT & AUTO [id number] 04:35:00 Test Item Value Reference Range Interpretation Comments WHITE BLOOD CELL COUNT (BEAKER) 8.1 K/ L 3.5-10.5 (test code = 775) RED BLOOD CELL COUNT (BEAKER) 3.48 M/ L 4.63-6.08 L (test code = 761) HEMOGLOBIN (BEAKER) (test code = 9.4 GM/DL 13.7-17.5 L 410) HEMATOCRIT (BEAKER) (test code = 30.4 % 40.1-51.0 L 411) MEAN CORPUSCULAR VOLUME (BEAKER) 87.4 fL 79.0-92.2 (test code = 753) MEAN CORPUSCULAR HEMOGLOBIN 27.0 pg 25.7-32.2 (BEAKER) (test code = 751) MEAN CORPUSCULAR HEMOGLOBIN CONC 30.9 GM/DL 32.3-36.5 L (BEAKER) (test code = 752) RED CELL DISTRIBUTION WIDTH 14.6 % 11.6-14.4 H (BEAKER) (test code = 412) PLATELET COUNT (BEAKER) (test 196 K/CU MM 150-450 code = 756) MEAN PLATELET VOLUME (BEAKER) 12.7 fL 9.4-12.4 H (test code = 754) NUCLEATED RED BLOOD CELLS 0 /100 WBC 0-0 (BEAKER) (test code = 413) NEUTROPHILS RELATIVE PERCENT 63 % (BEAKER) (test code = 429) LYMPHOCYTES RELATIVE PERCENT 18 % (BEAKER) (test code = 430) MONOCYTES RELATIVE PERCENT 8 % (BEAKER) (test code = 431) EOSINOPHILS RELATIVE PERCENT 9 % (BEAKER) (test code = 432) BASOPHILS RELATIVE PERCENT 1 % (BEAKER) (test code = 437) NEUTROPHILS ABSOLUTE COUNT 5.11 K/ L 1.78-5.38 (BEAKER) (test code = 670) LYMPHOCYTES ABSOLUTE COUNT 1.44 K/ L 1.32-3.57 (BEAKER) (test code = 414) MONOCYTES ABSOLUTE COUNT (BEAKER) 0.67 K/ L 0.30-0.82 (test code = 415) EOSINOPHILS ABSOLUTE COUNT 0.72 K/ L 0.04-0.54 H (BEAKER) (test code = 416) BASOPHILS ABSOLUTE COUNT (BEAKER) 0.10 K/ L 0.01-0.08 H (test code = 417) IMMATURE GRANULOCYTES-RELATIVE 0 % 0-1 PERCENT (BEAKER) (test code = 2801) POCT-GLUCOSE [id number] 21:16:00 Test Item Value Reference Range Interpretation Comments POC-GLUCOSE METER 136 mg/dL 70-[address] [facility] 6720 (BEAKER) (test code = MARY JO [place] 1538) [address] BODY FLUID CELL COUNT WITH [id number] 19:37:00 Test Item Value Reference Range Interpretation Comments APPEARANCE FLUID (BEAKER) (test Bloody Clear A code = 510) COLOR FLUID (BEAKER) (test code Red Colorless, Straw A = 511) RBC FLUID (BEAKER) (test code = 27051 /cu mm <=1 H 513) ADJUSTED WBC FLUID (BEAKER) 255 /cu mm <=5 H (test code = 1691) LINING CELLS (BEAKER) (test 0 /cu mm <=1 code = 1590) NEUTROPHILS FLUID (BEAKER) 5 % (test code = 1656) LYMPHS FLUID (BEAKER) (test 91 % code = 488) MONO/MACROPHAGE FLUID (BEAKER) 1 % (test code = 489) EOSINOPHILS FLUID (BEAKER) 2 % (test code = 491) BASO FLUID (BEAKER) (test code 1 % = 492) CONTAINER BODY FLUID (BEAKER) EDTA Tube (test code = 2873) PH, BODY [id number] 19:09:00 Test Item Value Reference Range Interpretation Comments PH, BODY FLUID (BEAKER) (test code = 9.00 1530) LACTATE DEHYDROGENASE (LDH), BODY [id number] 19:06:00 Test Item Value Reference Range Interpretation Comments LACTATE DEHYDROGENASE FLUID 100 U/L Light's criteria (BEAKER) (test code = 634) identifies effusions if one or more are pre Absence of reference range indicates that normals have not been defined.Assay performance has not been validated for this type of specimen.PROTEIN, BODY FLUID 2017-06-28 19:06:00 Test Item Value Reference Range Interpretation Comments PROTEIN FLUID (BEAKER) 1.5 g/dL Light's criteria identifies (test code = 579) effusions if one or more are pre Absence of reference range indicates that normals have not been defined.Assay performance has not been validated for this type of specimen.GLUCOSE, BODY FLUID 2017-06-28 19:06:00 Test Item Value Reference Range Interpretation Comments GLUCOSE, BODY FLUID (BEAKER) (test 108 mg/dL 70-110 code = 1528) Absence of reference range indicates that normals have not been defined.Assay performance has not been validated for this type of specimen.POCT-GLUCOSE METER 2017-06-28 17:15:00 Test Item Value Reference Range Interpretation Comments POC-GLUCOSE METER 75 mg/dL 70-110 TESTED AT [place] [address] ([facility]) (test code = [facility] Gilberto [facility] [address]) POCT-GLUCOSE [id number] 13:05:00 Test Item Value Reference Range Interpretation Comments POC-GLUCOSE METER 112 mg/dL 70-110 H TESTED AT [place] [address] ([facility]) (test code = [facility] 1538) [address] HEPATITIS B SURFACE [id number] 10:55:00 Test Item Value Reference Range Interpretation Comments HEPATITIS B SURFACE ANTIGEN (2) Nonreactive Nonreactive ([facility]) (test code = 2585) POCT-GLUCOSE [id number] 08:37:00 Test Item Value Reference Range Interpretation Comments POC-GLUCOSE METER 193 mg/dL 70-110 H TESTED AT [place] [address] ([facility]) (test code = [facility] 1538) [address] [id number] 07:16:00 Test Item Value Reference Range Interpretation Comments [facility] (test code = 5.9 mg/dL 2.3-4.7 H 604) [id number] 07:16:00 Test Item Value Reference Range Interpretation Comments POTASSIUM (BEAKER) (test code = 5.9 meq/L 3.5-5.1 H 379) BASIC METABOLIC [id number] 05:42:00 Test Item Value Reference Range Interpretation Comments SODIUM (BEAKER) 139 meq/L 136-145 (test code = 381) POTASSIUM (BEAKER) 5.7 meq/L 3.5-5.1 H (test code = 379) CHLORIDE (BEAKER) 98 meq/L 98-107 (test code = 382) CO2 (BEAKER) (test 23 meq/L 22-29 code = 355) BLOOD UREA NITROGEN 38 mg/dL 7-21 H (BEAKER) (test code = 354) CREATININE (BEAKER) 7.91 mg/dL 0.57-1.25 H (test code = 358) GLUCOSE RANDOM 177 mg/dL 70-105 H (BEAKER) (test code = 652) CALCIUM (BEAKER) 8.6 mg/dL 8.4-10.2 (test code = 697) EGFR (BEAKER) (test 8 mL/min/1.73 ESTIMAT ED GFR IS code = 1092) sq m NOT ACCURATE CREATININE CLEARANCE IN PREDICTING GLOMERULAR FILTRATION RATE . ESTIMATED GFR I S NOT APPLICABLE FOR DIALYSIS PATIEN TS. [id number] 05:34:00 Test Item Value Reference Range Interpretation Comments PHOSPHORUS (BEAKER) (test code = 5.9 mg/dL 2.3-4.7 H 604) [id number] 05:34:00 Test Item Value Reference Range Interpretation Comments MAGNESIUM (BEAKER) (test code = 2.3 mg/dL 1.6-2.6 627) CBC W/PLT COUNT & AUTO [id number] 05:07:00 Test Item Value Reference Range Interpretation Comments WHITE BLOOD CELL COUNT (BEAKER) 8.6 K/ L 3.5-10.5 (test code = 775) RED BLOOD CELL COUNT (BEAKER) 3.42 M/ L 4.63-6.08 L (test code = 761) HEMOGLOBIN (BEAKER) (test code = 9.2 GM/DL 13.7-17.5 L 410) HEMATOCRIT (BEAKER) (test code = 30.7 % 40.1-51.0 L 411) MEAN CORPUSCULAR VOLUME (BEAKER) 89.8 fL 79.0-92.2 (test code = 753) MEAN CORPUSCULAR HEMOGLOBIN 26.9 pg 25.7-32.2 (BEAKER) (test code = 751) MEAN CORPUSCULAR HEMOGLOBIN CONC 30.0 GM/DL 32.3-36.5 L (BEAKER) (test code = 752) RED CELL DISTRIBUTION WIDTH 14.5 % 11.6-14.4 H (BEAKER) (test code = 412) PLATELET COUNT (BEAKER) (test 213 K/CU MM 150-450 code = 756) MEAN PLATELET VOLUME (BEAKER) 13.6 fL 9.4-12.4 H (test code = 754) NUCLEATED RED BLOOD CELLS 0 /100 WBC 0-0 (BEAKER) (test code = 413) NEUTROPHILS RELATIVE PERCENT 71 % (BEAKER) (test code = 429) LYMPHOCYTES RELATIVE PERCENT 13 % (BEAKER) (test code = 430) MONOCYTES RELATIVE PERCENT 7 % (BEAKER) (test code = 431) EOSINOPHILS RELATIVE PERCENT 7 % (BEAKER) (test code = 432) BASOPHILS RELATIVE PERCENT 1 % (BEAKER) (test code = 437) NEUTROPHILS ABSOLUTE COUNT 6.11 K/ L 1.78-5.38 H (BEAKER) (test code = 670) LYMPHOCYTES ABSOLUTE COUNT 1.15 K/ L 1.32-3.57 L (BEAKER) (test code = 414) MONOCYTES ABSOLUTE COUNT (BEAKER) 0.60 K/ L 0.30-0.82 (test code = 415) EOSINOPHILS ABSOLUTE COUNT 0.62 K/ L 0.04-0.54 H (BEAKER) (test code = 416) BASOPHILS ABSOLUTE COUNT (BEAKER) 0.10 K/ L 0.01-0.08 H (test code = 417) IMMATURE GRANULOCYTES-RELATIVE 0 % 0-1 PERCENT (BEAKER) (test code = 2801) CT, CHEST, WITHOUT [id number] 22:28:00FINAL REPORT CT scan of the chest. [...] atelectasis of the left lung. Areas of subpleur al nodularity are seen in the right lung. A 1 cm nodule is seen in the right upper lobe abutting theoblique fissure. Scattered groundglass opacities are seen. Bone windows demonstrate no focal abnormality. IMPRESSION:1. Mild to moderate right-sided pleural effusion and mild to moderate left-sided hydr opneumothorax with a left-sided chest tube in place.2. Extensive areas of atelectasis or consolidation, particularly the left lung which is nearly completely atelectatic nature with only a small aerated portion.3. Other scattered groundglass opacities and some subpleural nodularity.4. Diffuse anasarca. Signed: Lonnie Hernandez MDReport Verified Date/Time: 06/27/2017 22:28:12 Reading Location: [address] Consult Reading Room POCT-GLUCOSE METER 2017-06-27 21:41:00 Test Item Value Reference Range Interpretation Comments POC-GLUCOSE METER 184 mg/dL 70-110 H TESTED AT [place] [address] ([facility]) (test code = MARY JO Macias [facility] 1538) [address] POCT-GLUCOSE [id number] 17:20:00 Test Item Value Reference Range Interpretation Comments POC-GLUCOSE METER 124 mg/dL 70-110 H TESTED AT [place] [address] ([facility]) (test code = MARY JO Macias [facility] 1538) [address] POCT-GLUCOSE [id number] 12:06:00 Test Item Value Reference Range Interpretation Comments POC-GLUCOSE METER 122 mg/dL 70-[address] [facility] 6720 (CELE[place]) (test code = MARY JO [place] 1538) [address] HEMOGLOBIN [id number] 11:32:00 Test Item Value Reference Range Interpretation Comments HEMOGLOBIN A1C ([place]) (test code = 7.0 % 4.3-6.1 H 368) RAD, CHEST, 1 VIEW, NON [id number] 08:02:00Reason for exam:->Eval pleural effusionShould this be performed at the bedside?->YesFINAL REPORT Chest one view INDICATION: Pleural effusion COMPARISON: 08/16/2016 IMPRESSION: A pigtail catheter overlies the left [...] Desai Verified Date/Time: 06/27/2017 08:02:11 Reading Location: [facility] Radiology Reading Room [id number] 05:48:00 Test Item Value Reference Range Interpretation Comments FERRITIN ([place]INA) (test code = 1317 ng/mL 5-275 H 361) VITAMIN D, [id number] 05:48:00 Test Item Value Reference Range Interpretation Comments VITAMIN D 25-OH (CELE[place]INA) (test 15.7 ng/mL 6.6-49.9 code = 2764) Effective 11/15/2016: Reference Range ChangeNew: 6.6-49.9 ng/mL Previous: 13.0-47.8 ng/mLRecommended Vitamin D Target Range: 30.0-40.0 ng/mLBASIC METABOLIC [id number] 05:38:00 Test Item Value Reference Range Interpretation Comments SODIUM (BEAKER) 140 meq/L 136-145 (test code = 381) POTASSIUM (BEAKER) 4.8 meq/L 3.5-5.1 (test code = 379) CHLORIDE (BEAKER) 100 meq/L 98-107 (test code = 382) CO2 (BEAKER) (test 26 meq/L 22-29 code = 355) BLOOD UREA NITROGEN 21 mg/dL 7-21 (BEAKER) (test code = 354) CREATININE (BEAKER) 5.97 mg/dL 0.57-1.25 H (test code = 358) GLUCOSE RANDOM 98 mg/dL 70-105 (BEAKER) (test code = 652) CALCIUM (BEAKER) 8.5 mg/dL 8.4-10.2 (test code = 697) EGFR (BEAKER) (test 10 mL/min/1.73 ESTIMA LUIS MANUEL GFR IS code = 1092) sq m NOT ACCURATE CREATININE CLEARANCE IN PREDICTING GLOMERULAR FILTRATION RATE . ESTIMATED GFR I S NOT APPLICABLE FOR DIALYSIS PATIEN TS. [id number] 05:35:00 Test Item Value Reference Range Interpretation Comments PHOSPHORUS (BEAKER) (test code = 3.8 mg/dL 2.3-4.7 604) [id number] 05:35:00 Test Item Value Reference Range Interpretation Comments MAGNESIUM (BEAKER) (test code = 2.2 mg/dL 1.6-2.6 627) VANCOMYCIN LEVEL, [id number] 05:27:00 Test Item Value Reference Range Interpretation Comments VANCOMYCIN RANDOM (BEAKER) (test code < ug/mL = 523) Reference Range: No NormalsPTH, [id number] 05:27:00 Test Item Value Reference Range Interpretation Comments PARATHYROID HORMONE INTACT 330.0 pg/mL 8.5-72.5 H (BEAKER) (test code = 577) IRON, TIBC, % SAT. (WITHOUT FERRITIN)2017-06-27 05:26:00 Test Item Value Reference Range Interpretation Comments IRON (BEAKER) (test code = 547) 35 ug/dL 40-160 L TOTAL IRON BINDING CAPACITY 121 ug/dL 250-450 L (BEAKER) (test code = 769) IRON % SATURATION (2) (BEAKER) 29 % 20-55 (test code = 2590) CBC W/PLT COUNT & AUTO [id number] 05:05:00 Test Item Value Reference Range Interpretation Comments WHITE BLOOD CELL COUNT (BEAKER) 8.8 K/ L 3.5-10.5 (test code = 775) RED BLOOD CELL COUNT (BEAKER) 3.30 M/ L 4.63-6.08 L (test code = 761) HEMOGLOBIN (BEAKER) (test code = 8.7 GM/DL 13.7-17.5 L 410) HEMATOCRIT (BEAKER) (test code = 29.2 % 40.1-51.0 L 411) MEAN CORPUSCULAR VOLUME (BEAKER) 88.5 fL 79.0-92.2 (test code = 753) MEAN CORPUSCULAR HEMOGLOBIN 26.4 pg 25.7-32.2 (BEAKER) (test code = 751) MEAN CORPUSCULAR HEMOGLOBIN CONC 29.8 GM/DL 32.3-36.5 L (BEAKER) (test code = 752) RED CELL DISTRIBUTION WIDTH 14.6 % 11.6-14.4 H (BEAKER) (test code = 412) PLATELET COUNT (BEAKER) (test 181 K/CU MM 150-450 code = 756) MEAN PLATELET VOLUME (BEAKER) 13.5 fL 9.4-12.4 H (test code = 754) NUCLEATED RED BLOOD CELLS 0 /100 WBC 0-0 (BEAKER) (test code = 413) NEUTROPHILS RELATIVE PERCENT 74 % (BEAKER) (test code = 429) LYMPHOCYTES RELATIVE PERCENT 12 % (BEAKER) (test code = 430) MONOCYTES RELATIVE PERCENT 7 % (BEAKER) (test code = 431) EOSINOPHILS RELATIVE PERCENT 7 % (BEAKER) (test code = 432) BASOPHILS RELATIVE PERCENT 1 % (BEAKER) (test code = 437) NEUTROPHILS ABSOLUTE COUNT 6.43 K/ L 1.78-5.38 H (BEAKER) (test code = 670) LYMPHOCYTES ABSOLUTE COUNT 1.03 K/ L 1.32-3.57 L (BEAKER) (test code = 414) MONOCYTES ABSOLUTE COUNT (BEAKER) 0.59 K/ L 0.30-0.82 (test code = 415) EOSINOPHILS ABSOLUTE COUNT 0.60 K/ L 0.04-0.54 H (BEAKER) (test code = 416) BASOPHILS ABSOLUTE COUNT (BEAKER) 0.08 K/ L 0.01-0.08 (test code = 417) IMMATURE GRANULOCYTES-RELATIVE 0 % 0-1 PERCENT (BEAKER) (test code = 2801) POCT-GLUCOSE [id number] 23:38:00 Test Item Value Reference Range Interpretation Comments POC-GLUCOSE METER 99 mg/dL 70-[address] [facility] 6720 (BEAKER) (test code = [place] [address] 1538) [id number] 12:02:00 Test Item Value Reference Range Interpretation Comments THYROID STIMULATING HORMONE 3.60 uIU/mL 0.35-4.94 (BEAKER) (test code = 772) BASIC METABOLIC [id number] 10:05:00 Test Item Value Reference Range Interpretation Comments SODIUM (BEAKER) 137 meq/L 136-145 (test code = 381) POTASSIUM (BEAKER) 4.8 meq/L 3.5-5.1 (test code = 379) CHLORIDE (BEAKER) 97 meq/L 98-107 L (test code = 382) CO2 (BEAKER) (test 26 meq/L 22-29 code = 355) BLOOD UREA NITROGEN 29 mg/dL 7-21 H (BEAKER) (test code = 354) CREATININE (BEAKER) 5.65 mg/dL 0.57-1.25 H (test code = 358) GLUCOSE RANDOM 194 mg/dL 70-105 H (BEAKER) (test code = 652) CALCIUM (BEAKER) 9.3 mg/dL 8.4-10.2 (test code = 697) EGFR (BEAKER) (test 11 mL/min/1.73 ESTIMA LUIS MANUEL GFR IS code = 1092) sq m NOT ACCURATE CREATININE CLEARANCE IN PREDICTING GLOMERULAR FILTRATION RATE . ESTIMATED GFR I S NOT APPLICABLE FOR DIALYSIS PATIEN TS. B-TYPE NATRIURETIC FACTOR (BNP)2017-02-23 09:58:00 Test Item Value Reference Range Interpretation Comments B-TYPE NATRIURETIC PEPTIDE (BEAKER) 875 pg/mL 0-100 H (test code = 700) LIPID [id number] 09:55:00 Test Item Value Reference Range Interpretation Comments TRIGLYCERIDES (BEAKER) (test code = 102 mg/dL 540) CHOLESTEROL (BEAKER) (test code = 166 mg/dL 631) HDL CHOLESTEROL (BEAKER) (test code 55 mg/dL = 976) LDL CHOLESTEROL CALCULATED (BEAKER) 91 mg/dL (test code = 633) Triglyceride Reference Range: Low Risk <150 Borderline 150-199 High Risk 200-499 Very High Risk >=500Cholesterol Reference Range: Low Risk <200 Borderline 200-239 High Risk >240HDL Cholesterol Reference Range: Low Risk >=60 High Risk <40LDL Cholesterol Reference Range: Optimal <100 Near Optimal 100-129 Borderline 130-159 High 160-189 Very High >=190HEPATIC FUNCTION [id number] 09:55:00 Test Item Value Reference Range Interpretation Comments TOTAL PROTEIN (BEAKER) (test code = 7.8 gm/dL 6.0-8.3 770) ALBUMIN (BEAKER) (test code = 1145) 3.9 g/dL 3.5-5.0 BILIRUBIN TOTAL (BEAKER) (test code 0.6 mg/dL 0.2-1.2 = 377) BILIRUBIN DIRECT (BEAKER) (test 0.2 mg/dL 0.1-0.5 code = 706) ALKALINE PHOSPHATASE (BEAKER) (test 112 U/L 40-150 code = 346) AST (SGOT) (BEAKER) (test code = 12 U/L 5-34 353) ALT (SGPT) (BEAKER) (test code = 8 U/L 6-55 347) CBC W/PLT COUNT & AUTO [id number] 09:04:00 Test Item Value Reference Range Interpretation Comments WHITE BLOOD CELL COUNT (BEAKER) 8.7 K/ L 3.5-10.5 (test code = 775) RED BLOOD CELL COUNT (BEAKER) 4.15 M/ L 4.63-6.08 L (test code = 761) HEMOGLOBIN (BEAKER) (test code = 11.7 GM/DL 13.7-17.5 L 410) HEMATOCRIT (BEAKER) (test code = 35.8 % 40.1-51.0 L 411) MEAN CORPUSCULAR VOLUME (BEAKER) 86.3 fL 79.0-92.2 (test code = 753) MEAN CORPUSCULAR HEMOGLOBIN 28.2 pg 25.7-32.2 (BEAKER) (test code = 751) MEAN CORPUSCULAR HEMOGLOBIN CONC 32.7 GM/DL 32.3-36.5 (BEAKER) (test code = 752) RED CELL DISTRIBUTION WIDTH 13.2 % 11.6-14.4 (BEAKER) (test code = 412) PLATELET COUNT (BEAKER) (test 174 K/CU MM 150-450 code = 756) MEAN PLATELET VOLUME (BEAKER) 12.4 fL 9.4-12.4 (test code = 754) NUCLEATED RED BLOOD CELLS 0 /100 WBC 0-0 (BEAKER) (test code = 413) NEUTROPHILS RELATIVE PERCENT 65 % (BEAKER) (test code = 429) LYMPHOCYTES RELATIVE PERCENT 21 % (BEAKER) (test code = 430) MONOCYTES RELATIVE PERCENT 9 % (BEAKER) (test code = 431) EOSINOPHILS RELATIVE PERCENT 4 % (BEAKER) (test code = 432) BASOPHILS RELATIVE PERCENT 1 % (BEAKER) (test code = 437) NEUTROPHILS ABSOLUTE COUNT 5.66 K/ L 1.78-5.38 H (BEAKER) (test code = 670) LYMPHOCYTES ABSOLUTE COUNT 1.78 K/ L 1.32-3.57 (BEAKER) (test code = 414) MONOCYTES ABSOLUTE COUNT (BEAKER) 0.80 K/ L 0.30-0.82 (test code = 415) EOSINOPHILS ABSOLUTE COUNT 0.30 K/ L 0.04-0.54 (BEAKER) (test code = 416) BASOPHILS ABSOLUTE COUNT (BEAKER) 0.09 K/ L 0.01-0.08 H (test code = 417) IMMATURE GRANULOCYTES-RELATIVE 1 % 0-1 PERCENT (BEAKER) (test code = 2801) HLA [id number] 15:01:00 Test Item Value Reference Range Interpretation Comments HLA RESULT (BEAKER) (test See Scanned Report code = 2311) HLA-A AG1 (BEAKER) (test code = 2521) HLA-A AG2 (BEAKER) (test code = 2522) HLA-B AG1 (BEAKER) (test code = 2523) HLA-B AG2 (BEAKER) (test code = 2524) HLA-C AG1 (BEAKER) (test code = 2525) HLA-C AG2 (BEAKER) (test code = 2526) HLA-DR AG1 (BEAKER) (test code = 2518) HLA-DR AG2 (BEAKER) (test code = 6999) HLA-DQ AG1 (BEAKER) (test code = 2514) HLA-DQ AG2 (BEAKER) (test code = 2475) HLA-DRW (BEAKER) (test code = 4593) FLOW PRA CLASS I AND [id number] 08:31:00 Test Item Value Reference Range Interpretation Comments DATE OF SERUM (BEAKER) 987997 (test code = 2289) SERUM # (BEAKER) (test 805999 code = 2290) FLOW PRA CLASS I AND II See Scanned Report (test code = 7691) VARICELLA ZOSTER ANTIBODY, [id number] 10:13:00 Test Item Value Reference Range Interpretation Comments VARICELLA ZOSTER IGG (AL) (BEAKER) 3.0 Al (test code = 3197) VARICELLA ZOSTER RESULT INTERPRETATIONS: <=0.8 Al Nonreactive: Presumed non-immune to VZV 0.9-1.0 Al Equivocal >=1.1 Al Reactive: Presumed immune to VZVCYTOMEGALOVIRUS ANTIBODY, [id number] 10:04:00 Test Item Value Reference Range Interpretation Comments CYTOMEGALOVIRUS IGG ANTIBODY Negative (BEAKER) (test code = 790) CYTOMEGALOVIRUS ANTIBODY, [id number] 10:04:00 Test Item Value Reference Range Interpretation Comments CYTOMEGALOVIRUS IGM ANTIBODY Negative (BEAKER) (test code = 816) EBV-VCA ANTIBODY, [id number] 10:04:00 Test Item Value Reference Range Interpretation Comments DELFIN-BOB VCA IGG (BEAKER) (test Positive code = 983) EBV-VCA ANTIBODY, [id number] 10:04:00 Test Item Value Reference Range Interpretation Comments DELFIN-BOB VCA IGM (BEAKER) (test Negative code = 984) URINE [id number] 13:00:00 Test Item Value Reference Range Interpretation Comments CULTURE (BEAKER) (test code = 1095) No growth [id number] 06:05:00 Test Item Value Reference Range Interpretation Comments RPR SCREEN (BEAKER) (test code = Nonreactive Nonreactive 420) HEMOGLOBIN [id number] 14:45:00 Test Item Value Reference Range Interpretation Comments HEMOGLOBIN A1C (BEAKER) (test code = 7.9 % 4.3-6.1 H 368) URINALYSIS W/ [id number] 11:34:00 Test Item Value Reference Range Interpretation Comments COLOR (BEAKER) (test code = 470) Yellow CLARITY (BEAKER) (test code = 469) Clear SPECIFIC GRAVITY UA (BEAKER) (test 1.017 1.001-1.035 code = 468) PH UA (BEAKER) (test code = 467) 8.5 5.0-8.0 H PROTEIN UA (BEAKER) (test code = >600 mg/dL Negative A 464) GLUCOSE UA (BEAKER) (test code = 200 mg/dL Negative A 365) KETONES UA (BEAKER) (test code = Negative Negative 371) BILIRUBIN UA (BEAKER) (test code = Negative Negative 462) BLOOD UA (BEAKER) (test code = Small Negative A 461) NITRITE UA (BEAKER) (test code = Negative Negative 465) LEUKOCYTE ESTERASE UA (BEAKER) Negative Negative (test code = 466) UROBILINOGEN UA (BEAKER) (test 0.2 mg/dL 0.2-1.0 code = 463) RBC UA (BEAKER) (test code = 519) 21 /HPF WBC UA (BEAKER) (test code = 520) 2 /HPF HYALINE CASTS (BEAKER) (test code 5 /LPF = 514) SOURCE(BEAKER) (test code = 2795) HEPATITIS B SURFACE [id number] 11:03:00 Test Item Value Reference Range Interpretation Comments HEPATITIS B SURFACE ANTIGEN (2) Nonreactive Nonreactive (BEAKER) (test code = 2585) HEPATITIS B SURFACE [id number] 11:03:00 Test Item Value Reference Range Interpretation Comments HEPATITIS B SURFACE ANTIBODY 78.1 mIU/mL <8.0 H (BEAKER) (test code = 647) HEPATITIS B CORE ANTIBODY, [id number] 11:03:00 Test Item Value Reference Range Interpretation Comments HEPATITIS B CORE IGM ANTIBODY Nonreactive Nonreactive (BEAKER) (test code = 645) HEPATITIS C [id number] 11:03:00 Test Item Value Reference Range Interpretation Comments HEPATITIS C ANTIBODY (BEAKER) Nonreactive Nonreactive (test code = 367) HIV-1 ANTIGEN WITH HIV-1/2 [id number] 11:03:00 Test Item Value Reference Range Interpretation Comments HIV-1 ANTIGEN WITH HIV 1\\T\\2 Nonreactive Nonreactive ANTIBODY (2) (BEAKER) (test code = 2586) COMPREHENSIVE METABOLIC [id number] 10:45:00 Test Item Value Reference Range Interpretation Comments TOTAL PROTEIN 7.3 gm/dL 6.0-8.3 (BEAKER) (test code = 770) ALBUMIN (BEAKER) 3.8 g/dL 3.5-5.0 (test code = 1145) ALKALINE PHOSPHATASE 119 U/L 40-150 (BEAKER) (test code = 346) BILIRUBIN TOTAL 0.5 mg/dL 0.2-1.2 (BEAKER) (test code = 377) SODIUM (BEAKER) (test 140 meq/L 136-145 code = 381) POTASSIUM (BEAKER) 4.1 meq/L 3.5-5.1 (test code = 379) CHLORIDE (BEAKER) 98 meq/L 98-107 (test code = 382) CO2 (BEAKER) (test 34 meq/L 22-29 H code = 355) BLOOD UREA NITROGEN 17 mg/dL 7-21 (BEAKER) (test code = 354) CREATININE (BEAKER) 5.48 mg/dL 0.57-1.25 H (test code = 358) GLUCOSE RANDOM 102 mg/dL 70-105 (BEAKER) (test code = 652) CALCIUM (BEAKER) 9.4 mg/dL 8.4-10.2 (test code = 697) AST (SGOT) (BEAKER) 13 U/L 5-34 (test code = 353) ALT (SGPT) (BEAKER) 8 U/L 6-55 (test code = 347) EGFR (BEAKER) (test 12 mL/min/1.73 ESTIMA LUIS MANUEL GFR IS code = 1092) sq m NOT ACCURATE CREATININE CLEARANCE IN PREDICTING GLOMERULAR FILTRATION RATE . ESTIMATED GFR I S NOT APPLICABLE FOR DIALYSIS PATIEN TS. PTH, [id number] 10:33:00 Test Item Value Reference Range Interpretation Comments PARATHYROID HORMONE INTACT 335.9 pg/mL 8.5-72.5 H (BEAKER) (test code = 577) URIC [id number] 10:27:00 Test Item Value Reference Range Interpretation Comments URIC ACID (BEAKER) (test code = 3.8 mg/dL 2.6-7.2 773) [id number] 10:27:00 Test Item Value Reference Range Interpretation Comments PHOSPHORUS (BEAKER) (test code = 2.9 mg/dL 2.3-4.7 604) LIPID [id number] 10:27:00 Test Item Value Reference Range Interpretation Comments TRIGLYCERIDES (BEAKER) (test code = 79 mg/dL 540) CHOLESTEROL (BEAKER) (test code = 156 mg/dL 631) HDL CHOLESTEROL (BEAKER) (test code 49 mg/dL = 976) LDL CHOLESTEROL CALCULATED (BEAKER) 91 mg/dL (test code = 633) Triglyceride Reference Range: Low Risk <150 Borderline 150-199 High Risk 200-499 Very High Risk >=500Cholesterol Reference Range: Low Risk <200 Borderline 200-239 High Risk >240HDL Cholesterol Reference Range: Low Risk >=60 High Risk <40LDL Cholesterol Reference Range: Optimal <100 Near Optimal 100-129 Borderline 130-159 High 160-189 Very High >=190GAMMA GLUTAMYL TRANSFERASE (GGT)2016-11-17 10:27:00 Test Item Value Reference Range Interpretation Comments GAMMA GLUTAMYL TRANSFERASE (BEAKER) 32 U/L 9-64 (test code = 364) LACTATE DEHYDROGENASE (LDH)2016-11-17 10:27:00 Test Item Value Reference Range Interpretation Comments LACTATE DEHYDROGENASE (BEAKER) (test 252 U/L 125-220 H code = 635) [id number] 10:11:00 Test Item Value Reference Range Interpretation Comments PROTIME (BEAKER) (test code = 14.3 seconds 11.7-14.7 759) INR (BEAKER) (test code = 370) 1.1 <=5.9 PARTIAL THROMBOPLASTIN TIME 32.2 seconds 22.5-36.0 (BEAKER) (test code = 760) RECOMMENDED COUMADIN/WARFARIN INR THERAPY RANGESSTANDARD DOSE: 2.0 - 3.0 Includes: PROPHYLAXIS forvenous thrombosis, systemic embolization; TREATMENT for venous thrombosis and/or pulmonary embolus.HIGH RISK: Target INR is 2.5-3.5 for patients with mechanical heart valves.CBC W/PLT COUNT & AUTO DIFFERENTIAL 2016-11-17 10:05:00 Test Item Value Reference Range Interpretation Comments WHITE BLOOD CELL COUNT (BEAKER) 7.0 K/ L 3.5-10.5 (test code = 775) RED BLOOD CELL COUNT (BEAKER) 4.06 M/ L 4.63-6.08 L (test code = 761) HEMOGLOBIN (BEAKER) (test code = 11.5 GM/DL 13.7-17.5 L 410) HEMATOCRIT (BEAKER) (test code = 36.6 % 40.1-51.0 L 411) MEAN CORPUSCULAR VOLUME (BEAKER) 90.1 fL 79.0-92.2 (test code = 753) MEAN CORPUSCULAR HEMOGLOBIN 28.3 pg 25.7-32.2 (BEAKER) (test code = 751) MEAN CORPUSCULAR HEMOGLOBIN CONC 31.4 GM/DL 32.3-36.5 L (BEAKER) (test code = 752) RED CELL DISTRIBUTION WIDTH 15.1 % 11.6-14.4 H (BEAKER) (test code = 412) PLATELET COUNT (BEAKER) (test 222 K/CU MM 150-450 code = 756) MEAN PLATELET VOLUME (BEAKER) 12.7 fL 9.4-12.4 H (test code = 754) NUCLEATED RED BLOOD CELLS 0 /100 WBC 0-0 (BEAKER) (test code = 413) NEUTROPHILS RELATIVE PERCENT 61 % (BEAKER) (test code = 429) LYMPHOCYTES RELATIVE PERCENT 24 % (BEAKER) (test code = 430) MONOCYTES RELATIVE PERCENT 9 % (BEAKER) (test code = 431) EOSINOPHILS RELATIVE PERCENT 6 % (BEAKER) (test code = 432) BASOPHILS RELATIVE PERCENT 1 % (BEAKER) (test code = 437) NEUTROPHILS ABSOLUTE COUNT 4.23 K/ L 1.78-5.38 (BEAKER) (test code = 670) LYMPHOCYTES ABSOLUTE COUNT 1.66 K/ L 1.32-3.57 (BEAKER) (test code = 414) MONOCYTES ABSOLUTE COUNT (BEAKER) 0.62 K/ L 0.30-0.82 (test code = 415) EOSINOPHILS ABSOLUTE COUNT 0.40 K/ L 0.04-0.54 (BEAKER) (test code = 416) BASOPHILS ABSOLUTE COUNT (BEAKER) 0.08 K/ L 0.01-0.08 (test code = 417) IMMATURE GRANULOCYTES-RELATIVE 0 % 0-1 PERCENT (BEAKER) (test code = 2801) OCCULT BLOOD, [id number] 23:03:00 Test Item Value Reference Range Interpretation Comments FECAL OCCULT BLOOD (BEAKER) (test Negative Negative code = 618) OCCULT BLOOD, [id number] 23:03:00 Test Item Value Reference Range Interpretation Comments FECAL OCCULT BLOOD (BEAKER) (test Negative Negative code = 618) PET, CARDIAC PERFUSION MULTIPLE STUDIES, REST AND [id number] 14:10:00 Reason for Exam:->ESRD/KIDNEY TRANSPLANT EVALFINAL REPORT PROCEDURE: Rest/Stress MYOCARDIAL PERFUSION PET with regadeno son\\XA9\\ CPT CODE: 31601 INDICATION: End-stage renal disease, preoperative evaluation for [...] of MPHR) at tracer injection. BP was 130/67mmHg at rest and 124/59 mmHg at tracer [...] extracardiac tracer distribution. 6. No previous [facility] study for comparison. NONINVASIVE RISK STRATIFICATION: The above findings are considered low risk(<1% annual mortality rate) based on the following criterion:- Normal or small myocardial perfusion defect at rest or with stress([facility]. 2012;59(9):857-81.) Signed: Nicolas Kimble Verified Date/Time: 10/11/2016 14:10:21 Reading Location: [address] [facility] Reading Room [place], CYSTOGRAM, CINE OR VIDEO, [id number] 13:04:00Reason for Exam:- >kidney transplant evaluationFINAL REPORT VCUG: Reason for exam: [...] is noted. Impression: Normal VCUG Signed: Kevin Almanzaeport Verified Date/Time: 10/11/2016 13:04:21 Reading Location: [facility] B1 [id number] Ortho Consult Reading Room VARICELLA ZOSTER ANTIBODY, [id number] 16:40:00 Test Item Value Reference Range Interpretation Comments VARICELLA ZOSTER IGG (AL) (CELESTINA) 2.8 Al (test code = 3197) VARICELLA ZOSTER RESULT INTERPRETATIONS: <=0.8 Al Nonreactive: Presumed non-immune to VZV 0.9-1.0 Al Equivocal >=1.1 Al Reactive: Presumed immune to VZVCYTOMEGALOVIRUS ANTIBODY, [id number] 06:52:00 Test Item Value Reference Range Interpretation Comments CYTOMEGALOVIRUS IGG ANTIBODY Negative (CELESTINA) (test code = 790) CYTOMEGALOVIRUS ANTIBODY, [id number] 06:52:00 Test Item Value Reference Range Interpretation Comments CYTOMEGALOVIRUS IGM ANTIBODY Negative (BEAKER) (test code = 816) EBV-VCA ANTIBODY, [id number] 06:52:00 Test Item Value Reference Range Interpretation Comments DELFIN-BOB VCA IGG (BEAKER) (test Positive code = 983) EBV-VCA ANTIBODY, [id number] 06:52:00 Test Item Value Reference Range Interpretation Comments DELFIN-BOB VCA IGM (BEAKER) (test Negative code = 984) URINE [id number] 12:59:00 Test Item Value Reference Range Interpretation Comments CULTURE (BEAKER) (test code = 1095) No growth HEPATITIS B SURFACE [id number] 13:18:00 Test Item Value Reference Range Interpretation Comments HEPATITIS B SURFACE Reactive Nonreactive A Reactive Hepatitis B ANTIGEN (2) (BEAKER) Surface Antigen result; (test code = 2585) Confirmed by Hepatitis B Surface Antigen Neutralization testing. [id number] 11:51:00 Test Item Value Reference Range Interpretation Comments RPR SCREEN (BEAKER) (test code = Nonreactive Nonreactive 420) HEMOGLOBIN [id number] 11:05:00 Test Item Value Reference Range Interpretation Comments HEMOGLOBIN A1C (BEAKER) (test code = 8.2 % 4.3-6.1 H 368) HEPATITIS B SURFACE [id number] 10:37:00 Test Item Value Reference Range Interpretation Comments HEPATITIS B SURFACE ANTIBODY < mIU/mL <8.0 (BEAKER) (test code = 647) PTH, [id number] 10:24:00 Test Item Value Reference Range Interpretation Comments PARATHYROID HORMONE INTACT 424.7 pg/mL 8.5-72.5 H (BEAKER) (test code = 577) Effective 12/23/2013: Reference Range ChangeNew: 8.5-72.5 Previous: 15.0-90.0 URINALYSIS W/ [id number] 10:19:00 Test Item Value Reference Range Interpretation Comments COLOR (BEAKER) (test code = 470) Yellow CLARITY (BEAKER) (test code = Clear 469) SPECIFIC GRAVITY UA (BEAKER) 1.013 1.001-1.035 (test code = 468) PH UA (BEAKER) (test code = 467) 7.5 5.0-8.0 PROTEIN UA (BEAKER) (test code = 600 mg/dL Negative A 464) GLUCOSE UA (BEAKER) (test code = >1000 mg/dL Negative A 365) KETONES UA (BEAKER) (test code = Negative Negative 371) BILIRUBIN UA (BEAKER) (test code Negative Negative = 462) BLOOD UA (BEAKER) (test code = Moderate Negative A 461) NITRITE UA (BEAKER) (test code = Negative Negative 465) LEUKOCYTE ESTERASE UA (BEAKER) Negative Negative (test code = 466) UROBILINOGEN UA (BEAKER) (test 0.2 mg/dL 0.2-1.0 code = 463) RBC UA (BEAKER) (test code = 519) 9 /HPF WBC UA (BEAKER) (test code = 520) 3 /HPF HYALINE CASTS (BEAKER) (test code 2 /LPF = 514) SOURCE(BEAKER) (test code = 2795) HEPATITIS B CORE ANTIBODY, [id number] 09:46:00 Test Item Value Reference Range Interpretation Comments HEPATITIS B CORE IGM ANTIBODY Nonreactive Nonreactive (BEAKER) (test code = 645) HEPATITIS C [id number] 09:46:00 Test Item Value Reference Range Interpretation Comments HEPATITIS C ANTIBODY (BEAKER) Nonreactive Nonreactive (test code = 367) HIV-1 ANTIGEN WITH HIV-1/2 [id number] 09:46:00 Test Item Value Reference Range Interpretation Comments HIV-1 ANTIGEN WITH HIV 1\\T\\2 Nonreactive Nonreactive ANTIBODY (2) (BEAKER) (test code = 2586) COMPREHENSIVE METABOLIC [id number] 09:33:00 Test Item Value Reference Range Interpretation Comments TOTAL PROTEIN 6.5 gm/dL 6.0-8.3 (BEAKER) (test code = 770) ALBUMIN (BEAKER) 3.4 g/dL 3.5-5.0 L (test code = 1145) ALKALINE PHOSPHATASE 97 U/L 40-150 (BEAKER) (test code = 346) BILIRUBIN TOTAL 0.5 mg/dL 0.2-1.2 (BEAKER) (test code = 377) SODIUM (BEAKER) (test 136 meq/L 136-145 code = 381) POTASSIUM (BEAKER) 3.1 meq/L 3.5-5.1 L (test code = 379) CHLORIDE (BEAKER) 97 meq/L 98-107 L (test code = 382) CO2 (BEAKER) (test 28 meq/L 22-29 code = 355) BLOOD UREA NITROGEN 31 mg/dL 7-21 H (BEAKER) (test code = 354) CREATININE (BEAKER) 5.55 mg/dL 0.57-1.25 H (test code = 358) GLUCOSE RANDOM 226 mg/dL 70-105 H (BEAKER) (test code = 652) CALCIUM (BEAKER) 8.5 mg/dL 8.4-10.2 (test code = 697) AST (SGOT) (BEAKER) 14 U/L 5-34 (test code = 353) ALT (SGPT) (BEAKER) 8 U/L 6-55 (test code = 347) EGFR (BEAKER) (test 11 mL/min/1.73 ESTIMA LUIS MANUEL GFR IS code = 1092) sq m NOT ACCURATE CREATININE CLEARANCE IN PREDICTING GLOMERULAR FILTRATION RATE . ESTIMATED GFR I S NOT APPLICABLE FOR DIALYSIS PATIEN TS. [id number] 09:30:00 Test Item Value Reference Range Interpretation Comments PROTIME (BEAKER) (test code = 13.7 seconds 11.7-14.7 759) INR (BEAKER) (test code = 370) 1.1 <=5.9 PARTIAL THROMBOPLASTIN TIME 28.7 seconds 22.5-36.0 (BEAKER) (test code = 760) RECOMMENDED COUMADIN/WARFARIN INR THERAPY RANGESSTANDARD DOSE: 2.0 - 3.0 Includes: PROPHYLAXIS forvenous thrombosis, systemic embolization; TREATMENT for venous thrombosis and/or pulmonary embolus.HIGH RISK: Target INR is 2.5-3.5 for patients with mechanical heart valves.URIC [id number] 09:27:00 Test Item Value Reference Range Interpretation Comments URIC ACID (BEAKER) (test code = 3.9 mg/dL 2.6-7.2 773) [id number] 09:27:00 Test Item Value Reference Range Interpretation Comments PHOSPHORUS (BEAKER) (test code = 3.9 mg/dL 2.3-4.7 604) GAMMA GLUTAMYL TRANSFERASE (GGT)2016-08-16 09:27:00 Test Item Value Reference Range Interpretation Comments GAMMA GLUTAMYL TRANSFERASE (BEAKER) 34 U/L 9-64 (test code = 364) LACTATE DEHYDROGENASE (LDH)2016-08-16 09:27:00 Test Item Value Reference Range Interpretation Comments LACTATE DEHYDROGENASE (BEAKER) (test 237 U/L 125-220 H code = 635) CBC W/PLT COUNT & AUTO [id number] 09:23:00 Test Item Value Reference Range Interpretation Comments WHITE BLOOD CELL COUNT (BEAKER) 7.3 K/ L 4.0-10.0 (test code = 775) RED BLOOD CELL COUNT (BEAKER) 4.49 M/ L 4.20-5.80 (test code = 761) HEMOGLOBIN (BEAKER) (test code = 13.8 GM/DL 13.0-16.8 410) HEMATOCRIT (BEAKER) (test code = 41.0 % 40.0-50.0 411) MEAN CORPUSCULAR VOLUME (BEAKER) 91.3 fL 82.0-98.0 (test code = 753) MEAN CORPUSCULAR HEMOGLOBIN 30.7 pg 27.0-33.0 (BEAKER) (test code = 751) MEAN CORPUSCULAR HEMOGLOBIN CONC 33.7 GM/DL 32.0-36.0 (BEAKER) (test code = 752) RED CELL DISTRIBUTION WIDTH 15.5 % 10.3-14.2 H (BEAKER) (test code = 412) PLATELET COUNT (BEAKER) (test 169 K/CU MM 150-430 code = 756) MEAN PLATELET VOLUME (BEAKER) 10.9 fL 6.5-10.5 H (test code = 754) NUCLEATED RED BLOOD CELLS 0 /100 WBC 0-0 (BEAKER) (test code = 413) NEUTROPHILS RELATIVE PERCENT 64 % (BEAKER) (test code = 429) LYMPHOCYTES RELATIVE PERCENT 23 % (BEAKER) (test code = 430) MONOCYTES RELATIVE PERCENT 8 % (BEAKER) (test code = 431) EOSINOPHILS RELATIVE PERCENT 4 % (BEAKER) (test code = 432) BASOPHILS RELATIVE PERCENT 1 % (BEAKER) (test code = 437) NEUTROPHILS ABSOLUTE COUNT 4.68 K/ L 1.80-8.00 (BEAKER) (test code = 670) LYMPHOCYTES ABSOLUTE COUNT 1.66 K/ L 1.48-4.50 (BEAKER) (test code = 414) MONOCYTES ABSOLUTE COUNT (BEAKER) 0.57 K/ L 0.00-1.30 (test code = 415) EOSINOPHILS ABSOLUTE COUNT 0.30 K/ L 0.00-0.50 (BEAKER) (test code = 416) BASOPHILS ABSOLUTE COUNT (BEAKER) 0.06 K/ L 0.00-0.20 (test code = 417) [id number] 10:56:00 Test Item Value Reference Range Interpretation Comments POC-POTASSIUM 4.4 meq/L 3.6-5.5 TESTED AT [facility] C 6720 (BEAKER) (test code [facility] [address] = 1540) POCT-GLUCOSE [id number] 10:52:00 Test Item Value Reference Range Interpretation Comments POC-GLUCOSE METER 223 mg/dL 70-[address] [facility] 6720 (BEAKER) (test code = [place] [place] 1538) [address] BUN AND [id number] 14:13:00 Test Item Value Reference Range Interpretation Comments BLOOD UREA NITROGEN 36 mg/dL 7-21 H (BEAKER) (test code = 354) CREATININE (BEAKER) 4.50 mg/dL 0.57-1.25 H (test code = 358) EGFR (BEAKER) (test 15 mL/min/1.73 ESTIMA LUIS MANUEL GFR IS code = 1092) sq m NOT ACCURATE CREATININE CLEARANCE IN PREDICTING GLOMERULAR FILTRATION RATE . ESTIMATED GFR I S NOT APPLICABLE FOR DIALYSIS PATIEN TS. [id number] 14:03:00 Test Item Value Reference Range Interpretation Comments SODIUM (BEAKER) (test code = 381) 139 meq/L 136-145 POTASSIUM (BEAKER) (test code = 4.2 meq/L 3.5-5.1 379) CHLORIDE (BEAKER) (test code = 382) 104 meq/L 98-107 CO2 (BEAKER) (test code = 355) 27 meq/L 22-29 [id number] 14:00:00 Test Item Value Reference Range Interpretation Comments GLUCOSE RANDOM (BEAKER) (test code = 77 mg/dL 70-105 652) Effective 12/23/2013: Reference Range Change-Adult onlyNew: 70-105 Previous: [id number] 13:51:00 Test Item Value Reference Range Interpretation Comments HEMOGLOBIN (BEAKER) (test code = 9.9 GM/DL 13.0-16.8 L 410) PLATELET [id number] 13:44:00 Test Item Value Reference Range Interpretation Comments PLATELET COUNT (BEAKER) (test 131 K/CU MM 150-430 L code = 756) POCT-GLUCOSE [id number] 09:51:00 Test Item Value Reference Range Interpretation Comments POC-GLUCOSE METER 210 mg/dL 70-110 H TEST[facility] AT [place] [address] [facility] (test code = [facility] 1538) [address] POCT-GLUCOSE [id number] 07:49:00 Test Item Value Reference Range Interpretation Comments POC-GLUCOSE METER 214 mg/dL 70-110 H TESTED AT [place] [address] ([facility]) (test code = [facility] 1538) [address] [id number] 07:19:00 Test Item Value Reference Range Interpretation Comments POC-POTASSIUM 5.1 meq/L 3.6-5.5 TESTED AT [place] [address] [facility] [facility] (test code [facility] [address] = 1540) BUN AND [id number] 12:34:00 Test Item Value Reference Range Interpretation Comments BLOOD UREA NITROGEN 70 mg/dL 7-21 H (BEAKER) (test code = 354) CREATININE (BEAKER) 8.17 mg/dL 0.57-1.25 H (test code = 358) EGFR (BEAKER) (test 7 mL/min/1.73 ESTIMAT ED GFR IS code = 1092) sq m NOT ACCURATE CREATININE CLEARANCE IN PREDICTING GLOMERULAR FILTRATION RATE . ESTIMATED GFR I S NOT APPLICABLE FOR DIALYSIS PATIEN TS. [id number] 12:34:00 Test Item Value Reference Range Interpretation Comments SODIUM (BEAKER) (test code = 381) 137 meq/L 136-145 POTASSIUM (BEAKER) (test code = 5.1 meq/L 3.5-5.1 379) CHLORIDE (BEAKER) (test code = 382) 111 meq/L 98-107 H CO2 (BEAKER) (test code = 355) 15 meq/L 22-29 L [id number] 12:29:00 Test Item Value Reference Range Interpretation Comments GLUCOSE RANDOM (BEAKER) (test code 186 mg/dL 70-105 H = 652) Effective 12/23/2013: Reference Range Change-Adult onlyNew: 70-105 Previous: [id number] 12:21:00 Test Item Value Reference Range Interpretation Comments HEMOGLOBIN (CELESTINA) (test code = 9.3 GM/DL 13.0-16.8 L 410) PLATELET [id number] 12:19:00 Test Item Value Reference Range Interpretation Comments PLATELET COUNT (CELESTINA) (test 254 K/CU MM 150-430 code = 756)
[2020-09-15] MEDS ORDERED: FENTANYL CITR 100 MCG/2 ML ONE (19:12)
[2020-09-15] MEDS ORDERED: ONDANSETRON 4 MG (ODT) TAB ONE (19:28)
--- NOTE | 2020-09-15 20:18 | RAD REPORT ---
EXAM DESCRIPTION: RAD - Hip Right 2 View - 09/15/2020 8:07 pm CLINICAL HISTORY: Right hip pain FINDINGS: Curvilinear lucency extends from the greater trochanter to the lesser trochanter of the ri ght femur. It probably represents a fracture. However, it is not certain as the lucency extends into the adjacent soft tissue. It is recommended that the patient have a CT scan for further evaluation. No dislocation
[2020-09-15 20:36] LABS: Absolute Lymphocytes (CBC) 0.3 K/uL (0.7-4.9); Basophils % 0.6 % (0-1.3); Hematocrit 38.9 % (39.6-49.0); Lymphocytes % 3.7 % (15.3-44.8); MPV 10.5 fL (7.6-11.3); RBC Red Blood Cell Count 4.03 M/uL (4.33-5.43)
[2020-09-15 20:54] LABS: Potassium 3.8 mmol/L (3.5-5.1)
--- NOTE | 2020-09-15 21:07 | RAD REPORT ---
EXAM DESCRIPTION: CT - Hip Right Wo Con - 09/15/2020 8:47 pm CLINICAL HISTORY: Right hip pain status post fall COMPARISON: X-rays on the same date. TECHNIQUE: Computed axial tomography of the right hip were obtained. Coronal and sagittal reconstruc tion was performed. All CT scans are performed using dose optimization technique as appropriate and may include automated exposure control or mA/KV adjustment according to patient size. FINDINGS: Fracture involves the greater trochanter right femur extending intertrochanteric and lesse r trochanter. Mild displacement of fracture fragments. No dislocation IMPRESSION: Right femoral fracture
--- NOTE | 2020-09-15 21:29 | EDPHYS ---
Physician Documentation [facility] Name: Vance Barrera Age: 45 yrs Sex: Male : 1975 Arrival Date: 09/15/2020 Time: 18:34 Bed 7 Private MD: ED Physician Linus Yung HPI: 09/15 21:29 This 45 yrs old Male presents to ER via EMS with complaints of Hip Pain. jr8 21:29 Onset: The symptoms/episode began/occurred acutely, today. Modifying factors: The jr8 symptoms are alleviated by nothing, the symptoms are aggravated by any movement. Associated signs and symptoms: Loss of consciousness: the patient experienced no loss of consciousness, Pertinent positives: None. Severity of symptoms: At their worst the symptoms were moderate, in the emergency department the symptoms are unchanged. The patient has not experienced similar symptoms in the past. The patient has not recently seen a physician. This is a 45-year-old male patient that was brought to the emergency room via EMS after sustaining fall onto his right buttock earlier today. Patient since then has had pain to right hip and has been unable to bear weight. Denies any other further trauma.. Historical: - Allergies: 18:49 No Known Allergies; jd3 - PMHx: 18:49 Diabetes - IDDM; ESRD; High Cholesterol; Hypertension; pleural effusions; Pneumonia; jd3 - PSHx: 18:49 dialysis site left arm; jd3 - Immunization history:: Adult Immunizations unknown. - Social history:: Smoking status: Patient denies any tobacco usage or history of. ROS: 21:29 Constitutional: Negative for fever, chills, and weight loss, Neck: Negative for injury, jr8 pain, and swelling, Back: Negative for injury and pain, Neuro: Negative for headache, weakness, numbness, tingling, and seizure. 21:29 MS/extremity: Positive for decreased range of motion, pain, tenderness, of the right leg. 21:29 All other systems are negative. Exam: 21:29 Head/Face: Normocephalic, atraumatic. Neck: Trachea midline, no thyromegaly or masses jr8 palpated, and no cervical lymphadenopathy. Supple, full range of motion without nuchal rigidity, or vertebral point tenderness. No Meningismus. Chest/axilla: Normal chest wall appearance and motion. Nontender with no deformity. No lesions are appreciated. Cardiovascular: Regular rate and rhythm with a normal S1 and S2. No gallops, murmurs, or rubs. Normal PMI, no JVD. No pulse deficits. Respiratory: Lungs have equal breath sounds bilaterally, clear to auscultation and percussion. No rales, rhonchi or wheezes noted. No increased work of breathing, no retractions or nasal flaring. Abdomen/GI: Soft, non-tender, with normal bowel sounds. No distension or tympany. No guarding or rebound. No evidence of tenderness throughout. Back: No spinal tenderness. No costovertebral tenderness. Full range of motion. Skin: Warm, dry with normal turgor. Normal color with no rashes, no lesions, and no evidence of cellulitis. Neuro: Awake and alert, GCS 15, oriented to person, place, time, and situation. Cranial nerves II-XII grossly intact. Motor strength 5/5 in all extremities. Sensory grossly intact. 21:29 Musculoskeletal/extremity: Extremities: grossly normal except: noted in the right leg: Patient has no obvious external signs of trauma other than external rotation of the right leg. Patient is moderately tender to the right inguinal and greater trochanteric region of his right femur., ROM: limited active range of motion, in the right leg, limited passive range of motion, in the right leg, limited active range of motion due to pain, in the right leg, limited passive range of motion due to pain, in the right leg, Circulation is intact in all extremities. Pulses: noted to be 2+ in the right radial artery, right dorsalis pedis artery, left radial artery and left dorsalis pedis artery, Sensation intact. Weight bearing: is unable to bear weight. Vital Signs: 18:53 BP 138 / 90; Pulse 73; Resp 16 S; Temp 98.8(TE); Pulse Ox 95% on R/A; Weight 44.45 kg jd3 (R); Height 5 ft. 5 in. (165.10 cm) (R); Pain 10/10; 20:54 BP 141 / 88; Pulse 74; Resp 18; Pulse Ox 98% on R/A; ea 21:45 BP 147 / 88; Pulse 76; Resp 18; Pulse Ox 99% on R/A; ea 22:50 BP 156 / 88; Pulse 70; Resp 18; Temp 98.6; Pulse Ox 99% ; ea 18:53 Body Mass Index 16.31 (44.45 kg, 165.10 cm) jd3 MDM: 18:42 Patient medically screened. 21:29 Data reviewed: vital signs, nurses notes, lab test result(s), radiologic studies, [facility] scan, plain films. Data interpreted: Pulse oximetry: on room air is 98 %. Interpretation: normal. Counseling: I had a detailed discussion with the patient and/or guardian regarding: the historical points, exam findings, and any diagnostic results supporting the discharge/admit diagnosis, lab results, radiology results, the need to transfer to another facility, [facility] does not immediately have the required specialist. ED course: We currently do not have orthopedics software test and validation engineer. Will attempt to transfer patient.. ED course: [facility] accepted patient for further evaluation for intertrochanteric hip fracture on the right side.. 09/15 18:51 Order name: CBC with Diff; Complete Time: 22:55 [facility] 09/15 18:51 Order name: Basic Metabolic Panel; Complete Time: 21:01 [facility] 09/15 18:51 Order name: XRAY Hip RIGHT 2 view; Complete Time: 20:27 [facility] 09/15 21:02 Order name: Manual Differential; Complete Time: 22:55 EDMS 09/15 18:51 Order name: IV Start; Complete Time: 20:10 [facility] 09/15 20:34 Order name: Hip Right Wo Con; Complete Time: 21:32 EDMS Administered Medications: 20:10 Drug: fentaNYL (PF) 50 mcg Route: IVP; Site: right antecubital; ea 23:01 Follow up: Response: No adverse reaction ea 20:10 Drug: Zofran (Ondansetron) 4 mg Route: IVP; Site: left antecubital; ea 23:01 Follow up: Response: No adverse reaction ea 23:01 Drug: fentaNYL (PF) 25 mcg Route: IVP; Site: right antecubital; ea 23:02 Follow up: Response: No adverse reaction ea 23:01 Drug: Zofran (Ondansetron) 2 mg Route: IVP; Site: right antecubital; ea 23:02 Follow up: Response: No adverse reaction ea Disposition: 21:29 Co-signature as Attending Physician, Linus Yung MD I agree with the assessment and rn plan of care. Attestation: The patient's history, exam findings, diagnostics, and a summary of any interventions or procedures was reviewed in detail with Glenn HANSON. Disposition Summary: 09/15/20 21:28 Transfer Ordered Transfer Location: [place] [address] Reason: Higher level of care jr8 Condition: Stable jr8 Problem: new jr8 Symptoms: are unchanged jr8 Accepting Physician: Dr. Keller(09/15/20 23:03) didi Diagnosis - Nondisplaced intertrochanteric fracture of right femur jr8 Forms: - Medication Reconciliation Form jr8 - SBAR form jr8 Signatures: Dispatcher [employer] EDMS Linus Yung MD MD rn Roszak, Josh, PA PA jr8 Mandy Kaye RN RN Terrence Hung RN RN jd3 Corrections: (The following items were deleted from the chart) 20:34 20:30 CT RIGHT HIP WO CONTRAST ordered. EDMS EDMS 21:34 20:59 CORONAVIRUS+MR.LAB.BRZ ordered. EDMS EDMS 23:03 21:28 Dr. Keller jr8 ea
--- NOTE | 2020-09-15 21:29 | ER ---
Nurse's Notes [facility] Name: Vance Barrera Age: 45 yrs Sex: Male : 1975 Arrival Date: 09/15/2020 Time: 18:34 Bed 7 Private MD: Diagnosis: Nondisplaced intertrochanteric fracture of right femur Presentation: 09/15 18:50 Chief complaint: EMS states: "the pt reported a fall at about 1300 today unwitnessed. jd3 we was able to get up and drive himself to his doctors appointment who heard about his fall and called EMS. pt refused [facility]. the pt then drove home and sat in the car for about 2 hours, the pt would not specify why. family and neighbors noticed him and called EMS again, and pt was convinced by family to come get seen.". Coronavirus screen: At this time, the client does not indicate any symptoms associated with coronavirus-19. Ebola Screen: Patient negative for fever greater than or equal to 101.5 degrees Fahrenheit, and additional compatible Ebola Virus Disease symptoms. Initial Sepsis Screen: Does the patient meet any 2 criteria? No. Patient's initial sepsis screen is negative. Does the patient have a suspected source of infection? No. Patient's initial sepsis screen is negative. Risk Assessment: Do you want to hurt yourself or someone else? Patient reports no desire to harm self or others. Onset of symptoms was September 15, 2020. 18:50 Method Of Arrival: EMS: [facility] jd3 18:50 Acuity: DENY 4 jd3 Historical: - Allergies: 18:49 No Known Allergies; jd3 - PMHx: 18:49 Diabetes - IDDM; ESRD; High Cholesterol; Hypertension; pleural effusions; Pneumonia; jd3 - PSHx: 18:49 dialysis site left arm; jd3 - Immunization history:: Adult Immunizations unknown. - Social history:: Smoking status: Patient denies any tobacco usage or history of. Screenin:54 Abuse screen: Denies threats or abuse. Nutritional screening: No deficits noted. jd3 Tuberculosis screening: No symptoms or risk factors identified. Fall Risk Ambulatory Aid- None/Bed Rest/Nurse Assist (0 pts). Gait- Normal/Bed Rest/Wheelchair (0 pts) Mental Status- Oriented to own ability (0 pts). Total Driscoll Fall Scale indicates No Risk (0-24 pts). Assessment: 19:09 Reassessment: patient c/o of nausea. notified ECP. patient refused IV and PO medication.zb 20:12 Reassessment: Patient and/or family updated on plan of care and expected duration. Pain ea level reassessed. Patient is alert, oriented x 3, equal unlabored respirations, skin warm/dry/pink. 21:45 Reassessment: Report given to [facility] ER. ea 21:47 Reassessment: Mother [phone]. ea 22:51 Reassessment: Patient and/or family updated on plan of care and expected duration. Pain ea level reassessed. Patient is alert, oriented x 3, equal unlabored respirations, skin warm/dry/pink. EMS at facility for transfer, report given to EMS, pt left via stretcher tolerating well. Vital Signs: 18:53 BP 138 / 90; Pulse 73; Resp 16 S; Temp 98.8(TE); Pulse Ox 95% on R/A; Weight 44.45 kg jd3 (R); Height 5 ft. 5 in. (165.10 cm) (R); Pain 10/10; 20:54 BP 141 / 88; Pulse 74; Resp 18; Pulse Ox 98% on R/A; ea 21:45 BP 147 / 88; Pulse 76; Resp 18; Pulse Ox 99% on R/A; ea 22:50 BP 156 / 88; Pulse 70; Resp 18; Temp 98.6; Pulse Ox 99% ; ea 18:53 Body Mass Index 16.31 (44.45 kg, 165.10 cm) jd3 ED Course: 18:34 Patient arrived in ED. ds1 18:42 Glenn Briggs PA is PHCP. jr8 18:42 Martinez Huerta MD is Attending Physician. jr8 18:53 Triage completed. jd3 18:54 Arm band placed on. jd3 18:54 Patient has correct armband on for positive identification. Bed in low position. Call j light in reach. Side rails up X2. Pulse ox on. NIBP on. 20:07 XRAY Hip RIGHT 2 view In Process Unspecified. EDMS 20:10 Inserted saline lock: 22 gauge in right antecubital area, using aseptic technique. ea 20:12 Mandy Kaye, RN is Primary Nurse. ea 20:47 Hip Right Wo Con In Process Unspecified. EDMS 20:57 initiated a transfer with Yaneth from [facility]. mw2 21:00 Attending Physician role handed off by Martinez Huerta MD rn 21:00 Linus Yung MD is Attending Physician. rn 21:18 [facility] denied due to capacity. mw2 21:19 initiated a transfer with Isabelle from [facility]. mw2 23:02 No provider procedures requiring assistance completed. Patient transferred, IV remains ea in place. Administered Medications: 20:10 Drug: fentaNYL (PF) 50 mcg Route: IVP; Site: right antecubital; ea 23:01 Follow up: Response: No adverse reaction ea 20:10 Drug: Zofran (Ondansetron) 4 mg Route: IVP; Site: left antecubital; ea 23:01 Follow up: Response: No adverse reaction ea 23:01 Drug: fentaNYL (PF) 25 mcg Route: IVP; Site: right antecubital; ea 23:02 Follow up: Response: No adverse reaction ea 23:01 Drug: Zofran (Ondansetron) 2 mg Route: IVP; Site: right antecubital; ea 23:02 Follow up: Response: No adverse reaction ea Outcome: 21:28 ER care complete, transfer ordered by . jr8 23:02 Transferred by ground EMS to [facility], Transfer form completed. ea 23:02 Condition: stable 23:02 Instructed on the need for transfer, Demonstrated understanding of instructions. 23:03 Patient left the ED. ea Signatures: Dispatcher [employer] EDAR Gracy William ds1 Linus Yung MD MD rn Roszak, Josh, PA PA jr8 Mandy Kaye RN RN ea Davies, Jonathon, RN RN jd3 [place], MyKena mw2 Susanne Ambrosio RN RN zb Corrections: (The following items were deleted from the chart) 21:23 20:18 [facility] denied due to capacity mw2 mw2 23:01 22:51 Reassessment: Patient and/or family updated on plan of care and expected ea duration. Pain level reassessed. Patient is alert, oriented x 3, equal unlabored respirations, skin warm/dry/pink. EMS at facility for transfer. ea
[2020-09-15 22:50] LABS: Blood Morphology Comment NOT SEEN (NOT SEEN); Platelet Estimate ADEQ
[2020-09-15 23:32] VITALS: O2SAT 99
[2020-09-15 23:34] VITALS: BP 156/88; TEMP 98.6
== END 2020-09-15 23:03 | disposition short-term general hospital (02) ==
LOC: ER 18:32
DX: S72.144A Nondisplaced intertrochanteric fracture of right femur, initial encounter for closed fracture (principal); W19.XXXA Unspecified fall, initial encounter; E11.22 Type 2 diabetes mellitus with diabetic chronic kidney disease; I12.0 Hypertensive chronic kidney disease with stage 5 chronic kidney disease or end stage renal disease; N18.6 End stage renal disease; Z99.2 Dependence on renal dialysis; Z20.822 Contact with and (suspected) exposure to COVID-19
CPT/HCPCS: 85025; 80048; 36415; 73700; 73502; 99285; U0003; J3010